=== PATIENT | female | born 1945 | race Caucasian/White ===

== ENCOUNTER → 2016-06-30 | Outpatient (REF) | payer MEDICARE ==
[~2016-06-30] MED LIST: ACET500C PO; AUGM875T27 PO; CALC600T7 PO; CALCI50TA PO; CIPR500T89 PO; CORT10TA PO; CYAN1000VL IM; D32000TA PO; FERR325T PO; FLAG500T PO; FOLI1TAB2 PO; HEPA100PFS IV; HYDR-3291 PO; IMOD2TAB16 PO; INDA125TA PO; MAG400TA PO; MAGN400T5 PO; MECL-68 PO; METAPKT PO; METO-346 PO; PRED20TAB PO; PROT1TAB2 PO; SALI0.9I2 IV; TPNINJ3 IV; VITA-122 PO; VITA-130 PO; VITA500046 PO; VITATAB22 PO; ZOFR20TA PO; [UNRECOGNIZED DRUG - CODE] IV
[2016-06-30 20:07] LABS: MEAN CORPUSCULAR HEMOGLOBIN 29.5 pg (27.0-33.0); MEAN CORPUSCULAR HGB CONC 32.8 g/dl (32.0-36.5); MEAN CORPUSCULAR VOLUME 89.9 fl (80.0-96.0); RED CELL DISTRIBUTION WIDTH 14.1 % (11.5-14.5); RETIC HEMOGLOBIN CONTENT CHr 30.9 PG (24-36); RETICULOCYTE % ADVIA2120 1.6 % (0.5-1.5); WHITE BLOOD COUNT 8.1 K/mm3 (4.0-10.0)
[2016-06-30 20:22] LABS: ALBUMIN 3.5 GM/DL (3.2-5.2); ALBUMIN/GLOBULIN RATIO 0.85 (1.00-1.93); BILIRUBIN,TOTAL 0.7 MG/DL (0.2-1.0); CALCIUM LEVEL 9.4 MG/DL (8.8-10.2); CREATININE FOR GFR 1.33 MG/DL (0.55-1.02); GLOMERULAR FILTRATION RATE 42.1 (>45); MAGNESIUM LEVEL 1.7 MG/DL (1.8-2.4); POTASSIUM SERUM 3.4 MEQ/L (3.5-5.1); TOTAL PROTEIN 7.6 GM/DL (6.4-8.2)
== END ==
LOC: M SFHCADAM 11:32
PROVIDERS: ATTEND Family Medicine
DX: D51.0 Vitamin B12 deficiency anemia due to intrinsic factor deficiency (principal); E27.40 Unspecified adrenocortical insufficiency; D50.8 Other iron deficiency anemias; E83.42 Hypomagnesemia
CPT/HCPCS: 80053; 82728; 83550; 83735; 85027; 85046; 96372; G0463; J3420

== ENCOUNTER → 2016-09-05 | Outpatient (REF) | payer MEDICARE ==
[2016-09-05 14:01] LABS: ALBUMIN 2.8 GM/DL (3.2-5.2); ALBUMIN/GLOBULIN RATIO 0.72 (1.00-1.93); BILIRUBIN,DIRECT 0.2 MG/DL (0.0-0.2); BILIRUBIN,TOTAL 0.5 MG/DL (0.2-1.0); CALCIUM LEVEL 8.3 MG/DL (8.8-10.2); CREATININE FOR GFR 1.15 MG/DL (0.55-1.02); GLOMERULAR FILTRATION RATE 49.8 (>45); TOTAL PROTEIN 6.7 GM/DL (6.4-8.2)
== END ==
LOC: M LABDRAW1 13:20
PROVIDERS: ATTEND Internal Medicine Endocrinology, Diabetes & Metabolism
DX: E55.9 Vitamin D deficiency, unspecified (principal)

== ENCOUNTER → 2016-10-18 | Outpatient (REF) | payer MEDICARE ==
[~2016-10-18] MED LIST changes: +ALLO100T PO; -AUGM875T27 PO; +AUGM875T28 PO; +CALC1CAP31 PO; +CALC600T34 PO; +CIPR-249 PO; -CIPR500T89 PO; +FAMO40TA3 PO; +FE G325T PO; +FERR1TAB8 PO; -FERR325T PO; -FOLI1TAB2 PO; +FOLI1TAB4 PO; +MAGN1TAB25 PO; +MAGN30TA2 PO; +OXYC1TAB23 PO; +PRED10TA2 PO; +PRED20TA PO; +PROTPAK PO; +TYLE325T5 PO; +VICO5TAB16 PO; -VITA-130 PO; +VITA1DRO IM; +VITA500T PO
[2016-10-18 19:03] LABS: ALBUMIN 3.5 GM/DL (3.2-5.2); ALBUMIN/GLOBULIN RATIO 0.76 (1.00-1.93); BILIRUBIN,TOTAL 0.7 MG/DL (0.2-1.0); CALCIUM LEVEL 9.4 MG/DL (8.8-10.2); CREATININE FOR GFR 1.7 MG/DL (0.55-1.02); FREE T4 1.94 NG/DL (0.76-1.46); GLOMERULAR FILTRATION RATE 31.7 (>45); MAGNESIUM LEVEL 1.9 MG/DL (1.8-2.4); PERCENT SATURATION 9.1 % (13.2-37.4); POTASSIUM SERUM 4.3 MEQ/L (3.5-5.1); TOTAL PROTEIN 8.1 GM/DL (6.4-8.2)
[2016-10-18 19:51] LABS: MEAN CORPUSCULAR HEMOGLOBIN 27.8 pg (27.0-33.0); MEAN CORPUSCULAR HGB CONC 33.1 g/dl (32.0-36.5); MEAN CORPUSCULAR VOLUME 84.1 fl (80.0-96.0); RED CELL DISTRIBUTION WIDTH 13.5 % (11.5-14.5); RETIC HEMOGLOBIN CONTENT CHr 31.7 PG (24-36); WHITE BLOOD COUNT 8.6 K/mm3 (4.0-10.0)
== END ==
LOC: M SFHCADAM 15:23
PROVIDERS: ATTEND Family Medicine
DX: R53.83 Other fatigue (principal); D50.8 Other iron deficiency anemias; E83.42 Hypomagnesemia
CPT/HCPCS: 36415; 80053; 82728; 83550; 83735; 84439; 84443; 85027; 85046; G0463

== ENCOUNTER → 2016-11-21 | Outpatient (REF) | payer MEDICARE ==
[2016-11-22 13:55] LABS: FOLATE 14.8 NG/ML
[2016-11-22 14:09] LABS: PERCENT SATURATION 11.3 % (13.2-45.0)
== END ==
LOC: M LAB REF 13:04
PROVIDERS: ATTEND Internal Medicine Nephrology
DX: D64.9 Anemia, unspecified (principal)

== ENCOUNTER → 2016-11-24 | Outpatient (CLI) | payer MEDICARE ==
--- NOTE | 2016-11-24 12:27 | REP ---
RENAL ULTRASOUND: HISTORY: Acute renal failure. COMPARISON: 04/18/2016. The kidneys are normal in echogenicity. The right kidney measures 4.3 cm in transverse by 4.8 cm in AP by 9.3 cm in cephalocaudal dimensions. The left kidney measures 4.7 cm in transverse by 4.8 cm in AP by 10 cm in cephalocaudal dimensions. There is no hydronephrosis or mass. There is mild distension of the urinary bladder. There are no filling defects in the urinary bladder. IMPRESSION: Normal renal ultrasound. Signed by Albert Cid MD 11/24/2016 12:34 P
== END ==
LOC: M RAD 11:27
PROVIDERS: ATTEND Internal Medicine Nephrology
DX: N17.9 Acute kidney failure, unspecified (principal); E27.40 Unspecified adrenocortical insufficiency
CPT/HCPCS: 76775; 96372; G0463; J3420

== ENCOUNTER 2017-01-02 12:59 | Emergency (ER) | payer MEDICARE ==
[~2017-01-02] VITALS: Ht 154.9 cm; Wt 53.2 kg
[~2017-01-02 12:59] MED LIST changes: -ALLO100T PO; -CALC1CAP31 PO; -CALC600T34 PO; -FAMO40TA3 PO; -FE G325T PO; -MAGN1TAB25 PO; -MAGN30TA2 PO; -OXYC1TAB23 PO; -PRED10TA2 PO; -PRED20TA PO; -PROTPAK PO; -TYLE325T5 PO; -VICO5TAB16 PO; -VITA1DRO IM
[2017-01-02] MEDS ORDERED: ALLO100T PO (13:17)
[2017-01-02] MEDS ORDERED: FAMO40TA3 PO (13:17)
[2017-01-02] MEDS ORDERED: CALC1CAP31 PO (13:17)
[2017-01-02] MEDS ORDERED: PERCOCET 5MG/325MG TAB PO ONE ×3 (16:00→23:45)
[2017-01-02 16:14] LABS: BASO % 0.2 % (0.0-1.0); EOS # 0.2 K/mm3 (0.0-0.50); EOS % 1.7 % (0.0-3.0); LARGE UNSTAINED CELL # 0.1 K/mm3 (0.0-0.4); LARGE UNSTAINED CELL % 0.6 % (0.0-4.0); LYMPH # 0.6 K/mm3 (1.5-4.5); MEAN CORPUSCULAR HEMOGLOBIN 28.7 pg (27.0-33.0); MEAN CORPUSCULAR HGB CONC 32.6 g/dl (32.0-36.5); MEAN CORPUSCULAR VOLUME 87.9 fl (80.0-96.0); MONO # 0.4 K/mm3 (0.0-0.8); MONO % 3.6 % (0.0-5.0); NEUTROPHILS # 9.2 K/mm3 (1.8-7.7); NEUTROPHILS % 88.9 % (36.0-66.0); PLATELET COUNT, AUTOMATED 349 k/mm3 (150-450); RED CELL DISTRIBUTION WIDTH 16.3 % (11.5-14.5); WHITE BLOOD COUNT 10.4 K/mm3 (4.0-10.0)
[2017-01-02 16:36] LABS: ERYTHROCYTE SEDIMENTATION RATE > 140 mm/hr (0-30)
[2017-01-02 16:41] LABS: CALCIUM LEVEL 8.6 MG/DL (8.8-10.2); CREATININE FOR GFR 1.18 MG/DL (0.55-1.02); GLOMERULAR FILTRATION RATE 48.3 (>45); POTASSIUM SERUM 3.5 MEQ/L (3.5-5.1); URIC ACID 6.6 MG/DL (2.6-6.0)
--- NOTE | 2017-01-02 16:57 | REP ---
Clinical: Pain and swelling . Technique: Moss scale and color Doppler evaluation using linear high frequency transducer. Findings: Ultrasound examination of the left lower extremity deep venous structures from the common femoral vein to the popliteal vein demonstrates normal compressibility flow and wave patterns in response to respiration and augmentation. There is no evidence for deep venous thrombosis. Impression: No evidence for deep venous thrombosis. Signed by Burt Leong MD 01/02/2017 04:49 P
[2017-01-02] MEDS ORDERED: ONDANSETRON 4 MG ORAL DISINTEGRATING TAB (S0181) PO ONE (17:00)
--- NOTE | 2017-01-02 17:01 | REP ---
Clinical: Swelling. Rule out abscess. Technique: Real time sousa scale and color evaluation using linear high frequency transducer. Findings: Directed ultrasound examination at the level of the knee demonstrates a complex hypoechoic subcutaneous fluid collection measuring 5.3 x 1.1 x 1.4 cm medial to the left knee which may reflect forming abscess. Impression: Complex fluid collection medial to the knee possible abscess. Signed by Burt Leong MD 01/02/2017 04:53 P
--- NOTE | 2017-01-02 17:24 | REP ---
Right knee series: Five views. History: Pain and swelling. Findings: Five views of the right knee demonstrate marked diffuse osteopenia. There is osteoarthritic narrowing of the medial compartment with some sclerosis. There is fullness in the suprapatellar bursa, which may reflect a small joint effusion. No fracture is seen. Impression: Diffuse osteoporosis. Probable small joint effusion. Medial compartment osteoarthritis. Signed by Dane Rudd MD 01/03/2017 02:12 P
--- NOTE | 2017-01-02 20:00 | REPUSA ---
CT of the left knee without contrast Clinical statement: abscess. Technique: Multiple axial CT images were obtained with 5 mm cuts through the left knee without admini stration of contrast. Coronal and sagittal reconstructions were also obtained. No comparison is available. Findings: The osseous structures do not demonstrate any fractures or dislocations. Diffuse osteopenia , with scattered areas of ill-defined lytic changes, seen throughout the osseous structures. The supe rficial soft tissues are unremarkable. The joint spaces are well-maintained. There is a moderate size d joint effusion. Impression: 1. No focal soft tissue mass or fluid collection identified. Follow-up is recommended as clinically i ndicated. 2. Diffuse severe osteopenia, with scattered lytic changes throughout the osseous structures. No foca l cortical destructive changes are seen however. If there is continued clinical concern however, MRI is recommended. 3. Moderate sized joint effusion.
[2017-01-02 22:05] LABS: RBC CALC. BF 200000 (< 10mm3 cells/uL); WBC ADVIA BF 54.6; WBC CALC. BF 54600 cells/uL (0-20)
[2017-01-02 22:06] LABS: BF DIFF IF INDICATED? YES (NO); SYNOVIAL FLUID COLOR RED (YELLOW)
[2017-01-02 22:22] LABS: CC BF DIFF EXAM UNSPUN; CRYSTALS, BODY FLUID NONE SEEN (NONE SEEN)
[2017-01-02 22:23] LABS: HCT SOURCE RT KNEE
[2017-01-02 22:55] VITALS: BP 114/63
[2017-01-02 22:59] LABS: TOTAL PROTEIN, BODY FLUID 7.6 G/DL (NOT ESTABLISHED)
[2017-01-02] MEDS ORDERED: VICO5TAB16 PO (23:43)
[2017-01-02] MEDS ORDERED: NORCO, ANEXSIA 5/325MG TABLET (HYDROcodone/ACETAMINOPHEN) PO ONE (23:45)
--- NOTE | 2017-01-04 12:59 | CR ---
DATE OF CONSULTATION: 01/02/2017 INDICATION: Question left knee infection. HISTORY OF PRESENT ILLNESS: Maral is a 71-year-old female with Crohn's disease and chronic renal insufficiency who presented with two days of increasing medial left knee pain. A few years ago, she reports that she had an abscess drained from the medial aspect of left knee. She actually points to an incision that is far posterior, almost over the gastroc. She denies any fevers, chills or sweats. Again, pain is localized to the medial aspect of the knee. Although she has had some increasing swelling in her knee joint, she does not report any increasing stiffness. PAST MEDICAL HISTORY: Notable for renal insufficiency and multiple surgeries from Crohn's disease. For the rest of the patient's past medical history, past surgical history, medications, allergies, social history and review of systems, please see the patient intake completed by the emergency room, which I did review. PHYSICAL EXAMINATION: Reveals a well appearing female in no distress. Alert and oriented times three. NEUROLOGIC: Appropriate mood and affect. CARDIOVASCULAR: 2+ DP pulse with a regular rate. PULMONARY: Regular nonlabored breathing. SKIN: The skin over the left knee reveals a healed posteromedial incision from prior incision and drainage. There are no lesions anteriorly. MUSCULOSKELETAL: Exam of the left knee reveals a moderate effusion. There is no warmth or erythema. She has mild tenderness to palpation over the medial retinaculum with an area of questionable bogginess, but no induration of fluctuance. She has mild tenderness. Exam is not consistent with abscess. No specific mass palpated. She has full knee extension and can flex to 115 degrees in the supine position. Lateral joint lines nontender. She has mild medial joint line tenderness. No pain with axial load. Calf is soft and compressible. Grossly intact motor and sensory exam distally. RADIOLOGY: X-rays of the left knee were obtained and available for my review. 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 There is no bony expansion. There is no cortical destruction. An ultrasound was obtained in the ER which was interpreted by radiology as a fluid collection in the medial aspect of the knee, possibly an abscess. I did request a CAT scan of the knee, which showed there is no abscess or fluid collection. There is a moderate joint effusion. It also shows further detail of the bony changes. ASSESSMENT/PLAN: Maral is a 71-year-old female with left knee effusion, possible reactive arthritis, possible septic joint. There is no abscess or drainable fluid collection. Her clinical exam and picture is not concerning at all for a septic joint. Given that her inflammatory markers are elevated and she has had abscess on that knee before, I think it is worth aspirating the knee to rule out septic joint. I explained the risks and benefits of a left knee arthrocentesis with the patient and consent was obtained. PROCEDURE NOTE: The left knee was sterilely prepped with Betadine and then I used an 18 gauge spinal needle and aspirated 15 mL of hazy yellow synovial fluid. This was a somewhat bloody tap. This was a superolateral approach. She tolerated this well. The fluid was sent for cell count, crystals and culture. The cell count came back at 56,000 white blood cells and 20,000 red blood cells. No crystals and negative gram stain. I had a discussion with the emergency room physician that night that her clinical exam is not consistent at all with a septic joint and even though her cell count on the aspiration was 56,000, it would be inappropriate to perform irrigation and debridement of the knee joint since it is not consistent with a septic joint. I have recommended holding off on any antibiotics and having her followup in the office in 48 hours with re-aspiration of the knee joint unless her symptoms completely resolved. She was cautioned about returning to the ER for worsening pain, fevers over 101, or loss of motion. I had a conversation with the patient's primary care physician this morning to discuss my findings. The patient feels basically unchanged from the previous night in the ER. She had one subjective low grade fever. He says that she still has good range of motion and does not feel any worse. At this point, she will followup with me on 01/05 and I will re-aspirate her knee, sending it for culture, gram stain and cell count.
[2017-01-29] MEDS ORDERED: OXYC1TAB23 PO (07:36)
[2017-01-29] MEDS ORDERED: MAGN1TAB25 PO (07:36)
[2017-01-29] MEDS ORDERED: CALC600T34 PO (07:36)
[2017-01-29] MEDS ORDERED: CYAN1000VL IM (14:37)
[2017-01-29] MEDS ORDERED: HYDR-3291 PO (14:38)
[2017-02-10] MEDS ORDERED: PRED20TA PO (13:00)
== END 2017-01-03 00:32 | disposition home or self-care (01) ==
LOC: M ED 12:59
DX: M25.462 Effusion, left knee (principal); I12.9 Hypertensive chronic kidney disease with stage 1 through stage 4 chronic kidney disease, or unspecified chronic kidney disease; N18.9 Chronic kidney disease, unspecified; D50.9 Iron deficiency anemia, unspecified; K50.90 Crohn's disease, unspecified, without complications; Z79.51 Long term (current) use of inhaled steroids; Z79.899 Other long term (current) drug therapy; Z88.8 Allergy status to other drugs, medicaments and biological substances; Z88.2 Allergy status to sulfonamides; Z98.890 Other specified postprocedural states

== ENCOUNTER → 2017-01-04 | Outpatient (REF) | payer MEDICARE ==
[~2017-01-04] MED LIST changes: +ALLO100T PO; +CALC1CAP31 PO; +CALC600T34 PO; +FAMO40TA3 PO; +FE G325T PO; +MAGN1TAB25 PO; +MAGN30TA2 PO; +OXYC1TAB23 PO; +PRED10TA2 PO; +PRED20TA PO; +PROTPAK PO; +TYLE325T5 PO; +VICO5TAB16 PO; +VITA1DRO IM
== END ==
LOC: M SFHCADAM 09:41
PROVIDERS: ATTEND Family Medicine
DX: M13.162 Monoarthritis, not elsewhere classified, left knee (principal)

== ENCOUNTER → 2017-01-04 | Outpatient (REF) | payer MEDICARE ==
[2017-01-06 00:07] LABS: Lyme Disease IgG/IgM Antibodie <0.91 ISR (0.00-0.90); Lyme Disease IgM Ab Quantitati <0.80 index (0.00-0.79)
== END ==
LOC: M LABDRAW1 10:23
PROVIDERS: ATTEND Family Medicine
DX: M13.162 Monoarthritis, not elsewhere classified, left knee (principal)

== ENCOUNTER 2017-01-05 07:52 | Outpatient (CLI) | payer MEDICARE ==
[~2017-01-05 07:52] MED LIST changes: -CALC600T34 PO; -FE G325T PO; -MAGN1TAB25 PO; -MAGN30TA2 PO; -OXYC1TAB23 PO; -PRED10TA2 PO; -PRED20TA PO; -PROTPAK PO; -TYLE325T5 PO; -VITA1DRO IM
[2017-01-05] MEDS ORDERED: IRON SUCROSE 25 MG in NS 50 ML IV ONE (08:00)
[2017-01-05] MEDS ORDERED: IRON SUCROSE 475 MG in NS 250 ML IV ONE (08:00)
[2017-01-05] MEDS ORDERED: MAGN30TA2 PO (15:07)
[2017-01-05] MEDS ORDERED: PROTPAK PO (15:08)
[2017-01-05] MEDS ORDERED: FE G325T PO (15:09)
[2017-01-05] MEDS ORDERED: VITA1DRO IM (15:45)
[2017-01-29] MEDS ORDERED: CALC600T34 PO (07:36)
[2017-01-29] MEDS ORDERED: MAGN1TAB25 PO (07:36)
[2017-01-29] MEDS ORDERED: OXYC1TAB23 PO (07:36)
[2017-01-29] MEDS ORDERED: CYAN1000VL IM (14:37)
[2017-01-29] MEDS ORDERED: HYDR-3291 PO (14:38)
[2017-02-10] MEDS ORDERED: PRED20TA PO (13:00)
== END 2017-01-05 14:30 | disposition home or self-care (01) ==
LOC: M INFU 07:52
PROVIDERS: ATTEND Internal Medicine Nephrology
DX: D50.9 Iron deficiency anemia, unspecified (principal); Z88.2 Allergy status to sulfonamides; Z88.8 Allergy status to other drugs, medicaments and biological substances; Z87.19 Personal history of other diseases of the digestive system; Z79.899 Other long term (current) drug therapy
CPT/HCPCS: 36415; 86038; 86431; 86617; 96365; 96366; G0463; J1756

== ENCOUNTER → 2017-01-12 | Outpatient (CLI) | payer MEDICARE ==
[~2017-01-12] MED LIST changes: +CALC600T34 PO; +FE G325T PO; +MAGN1TAB25 PO; +MAGN30TA2 PO; +OXYC1TAB23 PO; +PRED10TA2 PO; +PRED20TA PO; +PROTPAK PO; +TYLE325T5 PO; +VITA1DRO IM
--- NOTE | 2017-01-12 18:40 | REP ---
MRI LEFT KNEE: TECHNIQUE: Axial proton density fat saturation, sagittal proton density T2 STIR, water excitation, coronal proton density, proton density fat saturation. The menisci demonstrate no evidence of a tear. The cruciate and collateral ligaments are intact. The extensor mechanism is intact. There is moderate diffuse chondromalacia of the patella most significantly centrally. Diffuse severe chondromalacia is seen in the medial joint compartment. Cortex of the medial femoral condyle demonstrates tiny focal areas of high signal, probably indicating a few tiny areas of microfracture. Extensive bone infarcts are seen in the distal femur and proximal tibia. In addition, there are central multifocal areas of fluid within the marrow of the distal femur with fluid-fluid levels which appear to represent a combination of fat and fluid. This probably represents central fat necrosis within the bone infarct. Diffuse surrounding soft tissue edema is seen. There is a moderate joint effusion. IMPRESSION: No tendon or ligament tear. Moderate diffuse chondromalacia of the patella. Severe diffuse chondromalacia in the medial joint compartment. In addition, there appear to be a few tiny areas of microfracture of the cortex of the medial femoral condyle. Extensive bone infarcts are seen in the distal femur and proximal tibia. There is surrounding soft tissue edema. There is a moderate joint effusion. Signed by Brando Moss MD 01/13/2017 02:20 P
== END ==
LOC: M RAD 14:51
PROVIDERS: ATTEND Orthopaedic Surgery
DX: M25.562 Pain in left knee (principal)

== ENCOUNTER 2017-02-23 09:59 | Inpatient (IN) | payer MEDICARE ==
[~2017-02-23] VITALS: Ht 154.9 cm; Wt 48.0 kg
[2017-02-23] MEDS: PANTOPRAZOLE 40MG INJ (PROTONIX) (C9113) IV SCH (09:00)
[2017-02-23] MEDS: ENOXAPARIN 40 MG/0.4 ML SYRINGE (J1650) SC SCH (09:00)
[~2017-02-23 09:59] MED LIST changes: -PRED10TA2 PO; -TYLE325T5 PO
[2017-02-23 11:00] LABS: MEAN CORPUSCULAR HEMOGLOBIN 29.3 pg (27.0-33.0); MEAN CORPUSCULAR HGB CONC 31.1 g/dl (32.0-36.5); MEAN CORPUSCULAR VOLUME 94.2 fl (80.0-96.0); PLATELET COUNT, AUTOMATED 252 10^3/uL (150-450); RED CELL DISTRIBUTION WIDTH 18.5 % (11.5-14.5); WHITE BLOOD COUNT 9.6 10^3/uL (4.0-10.0)
[2017-02-23] MEDS ORDERED: MORPHINE 2 MG/ML 1ML SYRINGE IV ONE (11:00)
[2017-02-23] MEDS ORDERED: ONDANSETRON 4MG/2ML VIAL (J2405) IV ONE (11:00)
[2017-02-23 11:03] LABS: LEFT SHIFT POS FLAG; POSITIVE MORPH POS FLAG
[2017-02-23 11:04] LABS: ADD MANUAL DIFFER YES; DIFF SLIDE NUMBER 185
[2017-02-23 11:13] LABS: INR 0.92
[2017-02-23 11:28] LABS: CALCIUM LEVEL 9.3 MG/DL (8.8-10.2); CREATININE FOR GFR 1.21 MG/DL (0.55-1.02); GLOMERULAR FILTRATION RATE 46.8 (>39); POTASSIUM SERUM 3.5 MEQ/L (3.5-5.1)
[2017-02-23 11:37] LABS: ANISOCYTOSIS 2+; BANDS 3 % (< 11)
[2017-02-23] MEDS ORDERED: ISOVUE-370 76% 100ML VIAL (Q9967) As Ordered ONE (11:38)
--- NOTE | 2017-02-23 13:21 | REP ---
CT ABDOMEN/PELVIS WITH IV CONTRAST: TECHNIQUE: Axial contrast enhanced images from the lung bases to the pubic symphysis using 100 mL Isovue 370 intravenous contrast material with multiplanar reformations. Comparison made with prior CT pelvis, 02/07/[address] abdomen/pelvis 02/03/2017. In the visualized lung bases, there is again elevation of the left hemidiaphragm with adjacent fibroatelectatic change. Liver is unremarkable. Small gallstones are seen in the gallbladder. The spleen, adrenals, pancreas, and kidneys appear unremarkable. There is no abdominal aortic aneurysm with scattered atherosclerotic calcifications. There are small, nonenlarged periaortic and mesenteric lymph nodes identified. There is no free air. Diffuse hazy opacity in the mesentery centrally and inferiorly is compatible with inflammation. There is a left lower quadrant ostomy again noted. Just below that, there is a pelvic abscess identified containing a drainage catheter. The amount of air and fluid in the abscess has increased since the most recent CT of 02/07/2017. There also appears to be a tract along the path of the drainage catheter which extends through the midline of the anterior abdominal wall to the skin with an apparent draining fistula at the skin just medial to the entrance site of the drainage catheter. Urinary bladder is mildly distended and grossly unremarkable. Ill-defined inflammation extends throughout the fat in the pelvis. Tiny amount of fluid in the abdominal wall of the right lower quadrant is stable. There are degenerative changes of the spine. IMPRESSION: Increased amount of air and fluid surrounding a pelvic abscess drainage catheter when compared to the prior CT of 02/07/2017. In addition, there appears to be a draining fistula extending from the abscess anteriorly through the midline of the anterior abdominal wall to the skin, with the drainage through the skin apparently just medial to the entrance site of the abscess drainage catheter. Signed by Brando Moss MD 02/23/2017 07:32 P
[2017-02-23] MEDS ORDERED: TYLE325T5 PO (14:34)
[2017-02-23] MEDS ORDERED: PRED10TA2 PO (14:40)
[2017-02-23] MEDS ORDERED: ONDANSETRON 4MG/2ML VIAL (J2405) IV PRN (14:45)
[2017-02-23] MEDS: LR 1,000 ML IV SCH ×2 (16:34→22:32)
[2017-02-23] MEDS: MORPHINE 4 MG/ML 1ML SYRINGE IV PRN ×2 (16:35→18:33)
[2017-02-23 22:00] VITALS: BP 123/63
--- NOTE | 2017-02-23 22:55 | HPEPDOC ---
General Surgery H&P Date of Admission Feb 23, 2017 Attending Physician: AMY DUBON MD History and Physical CHIEF COMPLAINT: New drainage coming out from skin, pelvic abscess HISTORY OF PRESENT ILLNESS: Patient is 72-year-old female with chronic history of Crohn's disease admitted under my service for intra-abdominal/pelvic abscess a few weeks back and has been followed up in my clinic. She was clinically improving with decreasing output from her Nathan-Shane drain. This morning she woke up and she reports drainage of liquid substance similar to her ileostomy output on the lower portion of her abdomen below the ileostomy. Patient reports noting the area to be slightly red the past couple of days. Denies any fevers or chills. The intra-abdominal percutaneous drain was putting out between 20-40 mL's of purulent fluid for the past week. ALLERGIES: Please see below. HOME MEDICATIONS: Please see below. PAST MEDICAL HISTORY: 1. Crohn's disease 2. Mild adrenal insufficiency on steroids 3. Chronic kidney disease 4. Anemia PAST SURGICAL HISTORY: Hemicolectomy - RIGHT - 04/03/2001 - EXP LAP TAKEDOWN OF DUODENAL COLIC FISTULA , TAKEDOWN OF ILEOCOLIC FISTULA, SMALL BOWEL RESECTION, PARTIAL OMENTECTOMY, AND ILEOCOLIC ANASTOMOSIS Colonoscopy - SEVERAL Drainage & Debridement Of Abd Wall Abscess - 03/08/2000 Percutaneous drainage of pelvic abscess PERSONAL/SOCIAL HISTORY: Denies smoking, occasional alcohol use, denies recreational drug use. REVIEW OF SYSTEMS: GENERAL: Since last admission and discharge denies any fevers or chills, occasionally will have some abdominal pain, reports improving appetite. HEENT: Denies blurred vision and double vision. Denies ear symptoms. Denies hoarseness. NECK: Denies any neck pain. CARDIOVASCULAR: Denies chest pain and palpitations. MUSCULOSKELETAL: Denies arthralgias, back pain and thrombophlebitis. SKIN: Denies rash. NEUROLOGIC: Denies headache, stroke and transient ischemic attack. PSYCHIATRIC: Denies anxiety and depression. ENDOCRINE: Denies thyroid disease. HEMATOLOGY/ONCOLOGY: Denies any bleeding or clotting disorder. HEART: Denies any chest pains, palpitations, paroxysmal dyspnea, orthopnea. PULMONARY: Denies chronic cough, dyspnea and wheezing. GASTROINTESTINAL: Complicated gastrointestinal history secondary to long history of Crohn's disease with multiple surgeries, now permanent ileostomy. Still not on any treatments for Crohn's disease. She is scheduled to follow up with Dr. Callejas,unfortunately she has returned to the hospital for a new problem regarding her fistula GENITOURINARY: Denies dysuria, frequency, hematuria and nocturia. ENDOCRINE: Denies polydipsia, polyphagia, polyuria, heat or cold intolerance. G2 chronic history of prednisone use has some mild adrenal insufficiency maintained on hydrocortisone. Due to her fistula arising: Disease, she is on a tapering dose of prednisone now on 10 mg twice a day INFECTIOUS: She has been on antibiotics for her pelvic abscess, fistula NUTRITION: Prior to this episode, reports improving appetite PHYSICAL EXAMINATION: VITAL SIGNS: Please see below. GENERAL APPEARANCE: Patient appears anxious, reports discomfort from her lower abdomen HEENT: Normocephalic, atraumatic. Mildly pale palpebral conjunctivae. Anicteric sclerae. Lips dry. CHEST: No chest wall abnormalities. Normal respiratory motion/effort. NECK: Supple. No thyromegaly. No lymphadenopathies. LUNGS: Lung sounds are clear to auscultation bilaterally. No wheezing appreciated. HEART: No chest wall abnormalities. Heart rate and rhythm are regular with no murmurs. ABDOMEN: Flat abdomen, nondistended. Upper abdomen appears benign. Left lower quadrant ileostomy with small amount of output in the bag. Below the ostomy is in irregular skin opening neuropathy about 2 cm draining almost the same amount of stuff is coming out from her ileostomy. Slightly to the right of this is a percutaneous drain where there is a small amount of thick purulent material in the bag. Mild skin erythema around the skin fistula opening due to irritation. SKIN: Warm and dry. EXTREMITIES: Extremities have no deformities. No edema identified. NEUROLOGICAL: . Awake, alert, oriented ANCILLARIES: . LABORATORY DATA: Please see below. MICROBIOLOGY: Please see below. IMAGING: CT scan abdomen and pelvis Increased amount of air and fluid surrounding a pelvic abscess drainage catheter when compared to the prior CT of 02/07/2017. In addition, there appears to be a draining fistula extending from the abscess anteriorly through the midline of the anterior abdominal wall to the skin, with the drainage through the skin apparently just medial to the entrance site of the abscess drainage catheter. IMPRESSION AND PLAN: Enterocutaneous fistula Crohn's disease Adrenal insufficiency Right now we will admit the patient put her on IV antibiotics. We'll make her nothing by mouth. I am consider placing on TPN, NPO. With regards to the new enterocutaneous fistula, we will place a urostomy bag around the site to protect the surrounding skin. They think the percutaneous drain clogged causing return of buildup of the pelvic abscess which tracked its way up into the skin below the ileostomy creating an enterocutaneous fistula. Despite of this she does not appear to be acutely ill, no evidence signs of systemic inflammatory reaction. Her white cell count is normal. This she does not need an emergent surgery though she may need surgery if we are unable to control the abscess, draining fistula or she gets systemically ill from this or if this does not resolve after an appropriate amount of time and after putting her on treatment for her Crohn's disease. At this point in time, we will need to define the extent of the bowel involvement. The fistula, most important of which is how far from the ileostomy is seen Randall Delgado, how much small bowel she has left. From her history she is already having problems with episodes of high ileostomy output needing Lomotil to control the amount of the ileostomy off with this she may be at the verge of having short gut syndrome. I'll plan to at least half a small bowel follow-through done or even a retrograde study through the fistula or the ileostomy to verify its relation to the fistula tract. Vital Signs Vital Signs Date Time Temp Pulse Resp B/P (MAP) Pulse Ox O2 Delivery O2 Flow Rate FiO2 02/23/17 18:33 16 02/23/17 16:47 100.6 105 118/67 (84) 96 Room Air Laboratory Data Labs 24H Laboratory Tests 2 02/23/17 10:48: Nucleated Red Blood Cells % (auto) 0.0, Neutrophils 86H, Band Neutrophils 3, Lymphocytes (Manual) 9L, Monocytes (Manual) 2, Platelet Estimate NORMAL, Anisocytosis 2+, Prothrombin Time 12.4, Prothromb Time International Ratio 0.92 , Anion Gap 9, Glomerular Filtration Rate 46.8, Lactic Acid Level 1.7, Blood Urea Nitrogen 22H, Creatinine 1.21H, Sodium Level 140, Potassium Level 3.5, Chloride Level 102, Carbon Dioxide Level 29, Calcium Level 9.3 CBC/BMP Laboratory Tests 02/23/17 10:48 Red Blood Count 4.67, Mean Corpuscular Volume 94.2, Mean Corpuscular Hemoglobin 29.3, Mean Corpuscular Hemoglobin Concent 31.1 L, Red Cell Distribution Width 18.5 H, Calcium Level 9.3 Microbiology Microbiology 02/23/17 Blood Culture, Received Pending Home Medications Scheduled Allopurinol (Allopurinol) 100 Mg Tab, 100 MG PO BID, (Reported) Calcitriol (Calcitriol) 0.25 Mcg Cap, 25 MCG PO 3XW, (Reported) MON, MON, MON Calcium/Vitamin D (Calcium Carbonate/Vitamin 600-200 mg-Unit) 1 Tab Tab, 1 TAB PO BID, (Reported) Cholecalciferol (Vitamin D3) 1,000 Unit Tab, 2,000 UNIT PO DAILY, (Reported) Cyanocobalamin (Cyanocobalamin) 1,000 Mcg/1 Ml Inj, 1,000 MCG IM QMONTH, ( Reported) HAS APPT TO RECEIVE 03/02/17 Famotidine (Famotidine) 40 Mg Tab, 40 MG PO DAILY, (Reported) Ferrous Gluconate (Fe Gluconate) 325 Mg Tab, 325 MG PO DAILY, (Reported) Magnesium Oxide (Magnesium) 400 Mg Tab, 400 MG PO BID, (Reported) Prednisone (Prednisone) 10 Mg Tab, 1 DOSE PO ASDIRECTED, (Reported) TAPER DOSE... DUE FOR ONE MORE DOSE OF 40MG ON 02/24/17. ON 02/25/17 START TAPER OF: 20MG QAM & 10MG QPM x 1 WEEK, 10MG QAM & 10MG QPM x 1 WEEK, 10MG QAM x1 WEEK, THEN STOP Scheduled PRN Acetaminophen (Tylenol) 325 Mg Tab, 325 MG PO QID PRN for PAIN, (Reported) Loperamide Hcl (Imodium A-D) 2 Mg Tab, 2 MG PO PRN PRN for DIARRHEA, (Reported) Oxycodone/Acetaminophen (Oxycodone/Acetaminophen 5-325 mg) 1 Tab Tab, 1 TAB PO Q6H PRN for PAIN, (Reported) Allergies Coded Allergies: Sulfa Drugs (Verified Allergy, Unknown, RASH, 07/25/12) Sulfa Drugs Cross Reactors (Verified Allergy, Unknown, RASH, 07/25/12) Balsalazide (Verified Adverse Reaction, Mild, IRRITABILITY, 10/09/13) Budesonide (Verified Adverse Reaction, Mild, GI UPSET, 10/09/13) AMY DUBON MD Feb 23, 2017 22:55
[2017-02-24] MEDS: MORPHINE 4 MG/ML 1ML SYRINGE IV PRN ×5 (04:28→20:57)
[2017-02-24 06:00] VITALS: BP 126/64
[2017-02-24] MEDS: LR 1,000 ML IV SCH (08:33)
[2017-02-24] MEDS: PANTOPRAZOLE 40MG INJ (PROTONIX) (C9113) IV SCH (08:47)
[2017-02-24] MEDS: ENOXAPARIN 40 MG/0.4 ML SYRINGE (J1650) SC SCH (08:48)
[2017-02-24] MEDS: predniSONE 10 MG TAB PO SCH ×2 (13:27→20:56)
[2017-02-24 14:00] VITALS: BP 186/91
[2017-02-24 16:00] VITALS: BP 157/67
--- NOTE | 2017-02-24 16:13 | IPNPDOC ---
Subjective General Date/Time Seen The patient was seen on 02/24/17 at 08:10. Subject Chief Complaint/History The patient is a 72-year-old female admitted with a reason for visit of Enterocutaneous Fistula. She reports pain fro the skin irritation from the fistula site, a urostomy bag has been placed to control the fistula, slight leakage from the bag d/t the drain site. Afebrile. Current Medications Current Medications Current Medications Acetaminophen (Tylenol Tab) 650 mg Q4HP PRN PO MILD PAIN or TEMP > 101; Start 02/23/17 at 14:45; Stop 03/25/17 at 14:44 Acetaminophen/ Hydrocodone Bitart ([place], Anexsia 5/325) 1 tab Q4HP PRN PO MODERATE PAIN (PS 5-7); Start 02/23/17 at 14:45; Stop 03/02/17 at 14:44 Acetaminophen/ Hydrocodone Bitart ([place], Anexsia 5/325) 2 tab Q6HP PRN PO SEVERE PAIN (PS 8-10); Start 02/23/17 at 14:45; Stop 03/02/17 at 14:44 Enoxaparin Sodium (Lovenox) 40 mg DAILY SC Last administered on 02/24/17 08:48 ; Start 02/23/17 at 09:00; Stop 02/28/17 at 08:59 Home Med (Med Rec Complete!) ASDIRECTED XX ; Start 02/23/17 at 14:45; Stop 02/23/17 at 14:45; Status DC Insulin Human Lispro (HumaLOG INSULIN) See Protocol Table Q6H SC ; Start at 18:00; Stop 02/25/17 at 12:01 Lactated Ringer's 1,000 ml @ 125 mls/hr Q8H IV Last administered on 02/24/17 08:33; Start 02/23/17 at 14:32; Stop 03/25/17 at 14:31 Miscellaneous (Unresolved Clarification Entry) SEE LABEL COMMENTS UNRESOLVED XX ; Start 02/24/17 at 00:01; Stop 02/24/17 at 13:39; Status DC Morphine Sulfate (Morphine Sulfate Inj) 4 mg Q2HP PRN IV SEVERE PAIN (PS 8-10) Last administered on 02/24/17 13:27; Start 02/23/17 at 14:45; Stop 03/02/17 at 14:44 Multivitamins 10 ml/Chromium/ Copper/Manganese/ Seleni/Zn 1 ml/ Amino Ac/ Electrol/ Dextrose/Calcium 2,577 ml @ 75 mls/hr ONCE@1800 IV ; Start 02/24/17 at 18:00; Stop 02/25/17 at 17:59 Ondansetron HCl (ZOFRAN INJection) 4 mg Q6HP PRN IV NAUSEA OR VOMITING; Start 02/23/17 at 14:45; Stop 03/25/17 at 14:44 Pantoprazole Sodium (Protonix) 40 mg DAILY IV Last administered on 02/24/17 08 :47; Start 02/23/17 at 09:00; Stop 03/25/17 at 08:59 Prednisone (Deltasone) 10 mg BID PO Last administered on 02/24/17 13:27; Start 02/24/17 at 09:00; Stop 03/26/17 at 08:59 Allergies Coded Allergies: Sulfa Drugs (Verified Allergy, Unknown, RASH, 07/25/12) Sulfa Drugs Cross Reactors (Verified Allergy, Unknown, RASH, 07/25/12) Balsalazide (Verified Adverse Reaction, Mild, IRRITABILITY, 10/09/13) Budesonide (Verified Adverse Reaction, Mild, GI UPSET, 10/09/13) Objective Physical Examination Examination GENERAL APPEARANCE:[Patient seen, laying in bed, awake, alert, and oriented. Comfortable, in no acute distress]. SKIN: [Warm and moist]. HEENT: [Normocephalic, atraumatic. Emery palpebral conjunctiva, anicteric sclerae. Lips and mucosa appear moist]. NECK: [Supple, no thyromegaly. No obvious jugular venous distention]. LUNGS: [Clear to auscultation bilaterally. No wheezing appreciated]. HEART: [No chest wall abnormalities. Regular rate and rhythm with no murmurs appreciated]. ABDOMEN: Abdomen is , soft, . [No hepatosplenomegaly. No umbilical or groin herniations, nondistended. No noticeable rebound or guarding. No grimacing with palpation. No rebound tenderness. No masses appreciated]. EXTREMITIES: [Extremities have no deformities. No edema identified]. Vital Signs Vital Signs Date Time Temp Pulse Resp B/P (MAP) Pulse Ox O2 Delivery O2 Flow Rate FiO2 02/24/17 13:37 20 02/24/17 06:00 98.0 103 126/64 (84) 97 Room Air Laboratory Data Microbiology Microbiology 02/23/17 Blood Culture - Preliminary, Resulted No growth after 24 hours . All specim... Impression Enterocutaneous Fistula Crohns Disease Adrenal Insufficiency Paln is to keep her NPO, start TPN protect the skin from irritation at fistula site and observe fistula output continue with antibiotics d/c drain as no longer functioning. Plan / VTE VTE Prophylaxis Ordered?: Yes AMY DUBON MD Feb 24, 2017 16:13
--- NOTE | 2017-02-24 16:57 | REP ---
RIGHT PICC LINE PLACEMENT: The procedure was performed by KRISS Escudero under the direct supervision of Dr. Moss. The procedure along with its risks, benefits, and complications were discussed with the patient prior to the examination. Informed consent was obtained both verbally and written. The patient was identified in the interventional suite and placed in a supine position. The right arm was marked, prepped and draped in the usual sterile fashion. A procedural time-out was performed to ensure that the correct patient, site and procedure were being performed. Ultrasound guidance was used to puncture the right basilic vein. A thin guidewire was introduced and the needle was removed. Local infiltrative anesthesia was achieved using 2% lidocaine. A break-away sheath was placed over the wire and advanced into the vessel. Under fluoroscopic observation and via the break-away sheath, a 29 cm 5.5-Kitt[place] double lumen PICC line was placed with its tip at the junction of the distal superior vena cava. The catheter was flushed with heparinized saline and affixed to the patient's skin. The patient tolerated the procedure well and had no immediate complications. IMPRESSION: Uncomplicated placement of right upper extremity double lumen PICC line. Fluoroscopy time of 0.5 minutes were utilized for this procedure. Reviewed by KRISS Carpenter 03/08/2017 02:03 PEdited and Signed by Brando Moss MD 03/09/2017 04:22 P
[2017-02-24] MEDS ORDERED: SODIUM CHLORIDE 0.9% INJ 10 ML SYR IV PRN (17:00)
[2017-02-24] MEDS: HumaLOG INSULIN (NovoLOG) PER UNIT SC SCH (18:00)
[2017-02-24] MEDS ORDERED: MULTIVITAMIN -ADULT INJECTION 10 ML, CR/CU/SE/MN/ZN INJ 1 ML in AMINO AC/ELECTROLYTE/DE... IV SCH (18:00)
[2017-02-24] MEDS: SODIUM CHLORIDE 0.9% INJ 10 ML SYR IV SCH (18:29)
[2017-02-24 22:00] VITALS: BP 122/70
[2017-02-25] MEDS: MORPHINE 4 MG/ML 1ML SYRINGE IV PRN ×2 (05:13→22:20)
[2017-02-25] MEDS: SODIUM CHLORIDE 0.9% INJ 10 ML SYR IV SCH ×2 (05:31→18:28)
[2017-02-25 05:55] LABS: BASO % 0.2 % (0.0-1.0); IMMATURE GRANULOCYTE % 1.1 % (0-0); LYMPH # 0.3 10^3/uL (1.5-4.5); MEAN CORPUSCULAR HEMOGLOBIN 29.4 pg (27.0-33.0); MEAN CORPUSCULAR HGB CONC 31.9 g/dl (32.0-36.5); MEAN CORPUSCULAR VOLUME 92.2 fl (80.0-96.0); MONO # 0.5 10^3/uL (0.0-0.8); MONO % 7.4 % (0.0-5.0); NEUTROPHILS # 5.4 10^3/uL (1.8-7.7); NEUTROPHILS % 87.3 % (36.0-66.0); PLATELET COUNT, AUTOMATED 155 10^3/uL (150-450); RED CELL DISTRIBUTION WIDTH 17.7 % (11.5-14.5); WHITE BLOOD COUNT 6.2 10^3/uL (4.0-10.0)
[2017-02-25 06:00] VITALS: BP 151/80
[2017-02-25 06:06] LABS: CREATININE FOR GFR 1.09 MG/DL (0.55-1.02); GLOMERULAR FILTRATION RATE 52.8 (>39)
[2017-02-25 06:24] LABS: CALCIUM LEVEL 7.9 MG/DL (8.8-10.2)
[2017-02-25] MEDS: HumaLOG INSULIN (NovoLOG) PER UNIT SC SCH ×4 (06:58→18:28)
[2017-02-25] MEDS: ENOXAPARIN 40 MG/0.4 ML SYRINGE (J1650) SC SCH (09:58)
[2017-02-25] MEDS: predniSONE 10 MG TAB PO SCH ×2 (09:59→20:16)
[2017-02-25] MEDS: PANTOPRAZOLE 40MG INJ (PROTONIX) (C9113) IV SCH (09:59)
[2017-02-25 14:00] VITALS: BP 130/68
--- NOTE | 2017-02-25 15:51 | IPNPDOC ---
Subjective General Date/Time Seen The patient was seen on 02/25/17 at 15:46. Subject Chief Complaint/History The patient is a 72-year-old female admitted with a reason for visit of Enterocutaneous Fistula. Patient is seen this morning, appears comfortable. She denies any abdominal discomfort. The bur continues drain was removed yesterday which allowed us to better control the fistula. She does not have much output from her ileostomy. She denies nausea or vomiting. Current Medications Current Medications Current Medications Acetaminophen (Tylenol Tab) 650 mg Q4HP PRN PO MILD PAIN or TEMP > 101; Start 02/23/17 at 14:45; Stop 03/25/17 at 14:44 Acetaminophen/ Hydrocodone Bitart ([place], Anexsia 5/325) 1 tab Q4HP PRN PO MODERATE PAIN (PS 5-7); Start 02/23/17 at 14:45; Stop 03/02/17 at 14:44 Acetaminophen/ Hydrocodone Bitart ([place], Anexsia 5/325) 2 tab Q6HP PRN PO SEVERE PAIN (PS 8-10); Start 02/23/17 at 14:45; Stop 03/02/17 at 14:44 Enoxaparin Sodium (Lovenox) 40 mg DAILY SC Last administered on 02/25/17 09:58 ; Start 02/23/17 at 09:00; Stop 02/28/17 at 08:59 Heparin Sodium (Heparin (Flush)) 200 units ASDIRECTED PRN IV SEE LABEL COMMENTS ; Start 02/24/17 at 17:00; Stop 03/26/17 at 16:59 Heparin Sodium (Heparin (Flush)) 200 units PICC IV Last administered on 05:30; Start 02/24/17 at 18:00; Stop 03/26/17 at 17:59 Home Med (Med Rec Complete!) ASDIRECTED XX ; Start 02/23/17 at 14:45; Stop 02/23/17 at 14:45; Status DC Insulin Human Lispro (HumaLOG INSULIN) See Protocol Table Q6H SC Last administered on 02/25/17 06:58; Start 02/24/17 at 18:00; Stop 02/25/17 at 12:01 ; Status DC Lactated Ringer's 1,000 ml @ 125 mls/hr Q8H IV Last administered on 02/24/17 08:33; Start 02/23/17 at 14:32; Stop 02/24/17 at 17:41; Status DC Miscellaneous (Unresolved Clarification Entry) SEE LABEL COMMENTS UNRESOLVED XX ; Start 02/24/17 at 00:01; Stop 02/24/17 at 13:39; Status DC Morphine Sulfate (Morphine Sulfate Inj) 4 mg Q2HP PRN IV SEVERE PAIN (PS 8-10) Last administered on 02/25/17 05:13; Start 02/23/17 at 14:45; Stop 03/02/17 at 14:44 Multivitamins 10 ml/Chromium/ Copper/Manganese/ Seleni/Zn 1 ml/ Amino Ac/ Electrol/ Dextrose/Calcium 2,577 ml @ 75 mls/hr ONCE@1800 IV Last administered on 02/24/17 18:30; Start 02/24/17 at 18:00; Stop 02/25/17 at 17:59 Ondansetron HCl (ZOFRAN INJection) 4 mg Q6HP PRN IV NAUSEA OR VOMITING Last administered on 02/24/17 17:11; Start 02/23/17 at 14:45; Stop 03/25/17 at 14:44 Pantoprazole Sodium (Protonix) 40 mg DAILY IV Last administered on 02/25/17 09 :59; Start 02/23/17 at 09:00; Stop 03/25/17 at 08:59 Prednisone (Deltasone) 10 mg BID PO Last administered on 02/25/17 09:59; Start 02/24/17 at 09:00; Stop 03/26/17 at 08:59 Sodium Chloride (Saline Lock Flush) 10 ML PICC IV Last administered on 05:31; Start 02/24/17 at 18:00; Stop 03/26/17 at 17:59 Sodium Chloride (Saline Lock Flush) 10ML ASDIRECTED PRN IV SEE LABEL COMMENTS; Start 02/24/17 at 17:00; Stop 03/26/17 at 16:59 Allergies Coded Allergies: Sulfa Drugs (Verified Allergy, Unknown, RASH, 07/25/12) Sulfa Drugs Cross Reactors (Verified Allergy, Unknown, RASH, 07/25/12) Balsalazide (Verified Adverse Reaction, Mild, IRRITABILITY, 10/09/13) Budesonide (Verified Adverse Reaction, Mild, GI UPSET, 10/09/13) Objective Physical Examination Examination GENERAL APPEARANCE: Comfortable. SKIN: Warm and dry. HEENT: Mildly pale palpebral conjunctiva, lips are dry. NECK: Supple, no thyromegaly. No obvious jugular venous distention. LUNGS: Clear to auscultation bilaterally. No wheezing appreciated. HEART: No chest wall abnormalities. Regular rate and rhythm with no murmurs appreciated. ABDOMEN: Abdomen is flat, soft, nondistended. Ileostomy the left side is only a small amount of brownish liquid in the bag, below this is the fistula with a urostomy bag in place. Seems to be adequately containing the fistula output. Fistula output looks the same as the ileostomy output. Surrounding skin around the fistula looks less macerated, less erythematous.. EXTREMITIES: Extremities have no deformities. No edema identified. Vital Signs Vital Signs Date Time Temp Pulse Resp B/P (MAP) Pulse Ox O2 Delivery O2 Flow Rate FiO2 02/25/17 07:45 Room Air 02/25/17 06:00 97.9 74 18 151/80 (103) 100 I&Os I&O- Last 24 Hours up to 6 AM 02/26/17 06:00 Intake Total 0 ml Balance 0 ml Laboratory Data Labs 24H Laboratory Tests 2 02/24/17 18:03: Bedside Glucose (Misc Panel) 60L 02/24/17 21:32: Bedside Glucose (Misc Panel) 134H 02/25/17 05:35: Immature Granulocyte % (Auto) 1.1H, White Blood Count 6.2, Red Blood Count 3.33L , Hemoglobin 9.8#L, Hematocrit 30.7L, Mean Corpuscular Volume 92.2, Mean Corpuscular Hemoglobin 29.4, Mean Corpuscular Hemoglobin Concent 31.9L, Red Cell Distribution Width 17.7H, Platelet Count 155, Neutrophils (%) (Auto) 87.3H , Lymphocytes (%) (Auto) 4.0L, Monocytes (%) (Auto) 7.4H, Eosinophils (%) (Auto ) 0.0, Basophils (%) (Auto) 0.2, Neutrophils # (Auto) 5.4, Lymphocytes # (Auto) 0.3L, Monocytes # (Auto) 0.5, Eosinophils # (Auto) 0.0, Basophils # (Auto) 0.0, Immature Granulocyte # (Auto) 0.1H, Nucleated Red Blood Cells % (auto) 0.0, Anion Gap 7L, Glomerular Filtration Rate 52.8, Blood Urea Nitrogen 20H, Creatinine 1.09H, Sodium Level 137, Potassium Level 4.0, Chloride Level 102, Carbon Dioxide Level 28, Calcium Level 7.9#L, C-Reactive Protein, Quantitative 14.50H 02/25/17 11:26: Bedside Glucose (Misc Panel) 136H CBC/BMP Laboratory Tests 02/25/17 05:35 Red Blood Count 3.33 L, Mean Corpuscular Volume 92.2, Mean Corpuscular Hemoglobin 29.4, Mean Corpuscular Hemoglobin Concent 31.9 L, Red Cell Distribution Width 17.7 H, Neutrophils (%) (Auto) 87.3 H, Lymphocytes (%) (Auto ) 4.0 L, Monocytes (%) (Auto) 7.4 H, Eosinophils (%) (Auto) 0.0, Basophils (%) ( Auto) 0.2, Neutrophils # (Auto) 5.4, Lymphocytes # (Auto) 0.3 L, Monocytes # ( Auto) 0.5, Eosinophils # (Auto) 0.0, Basophils # (Auto) 0.0, Calcium Level 7.9 # L Microbiology Microbiology 02/23/17 Blood Culture - Preliminary, Resulted No Growth after 48 hours. All Specime... Impression Crohn's disease Enterocutaneous fistula Adrenal insufficiency Chronic kidney disease Anemia She has been placed on TPN and made nothing by mouth. We will need to see how much comes out from her enterocutaneous fistula for the following week. Fortunately she is not showing any signs of sepsis from this. At some point next week will repeat the CT scan of the abdomen and pelvis to make sure the pelvic abscess is adequately drained. We'll continue her on ciprofloxacin and metronidazole. She is on a tapering dose of her steroids, presently at 10 mg twice a day. Had a long discussion with her and her regarding the overall plan. Unfortunately also our fluoroscopy suite is down for the foreseeable future so he could not do a small bowel follow-through as I originally planned on Monday. I will have to discuss with the radiologist if there are any other options available, including a CT enterography if you're able to do this. If we are able to control the pelvic abscess, chiki would like to have her start on some biologic therapy to control her Crohn's disease and to see if possibly the fistula will close with the treatment of her Crohn's disease. As I previously mentioned my concern is that she may need an extensive bowel resection which puts her at risk for short gut syndrome. Certainly before undergoing surgery we will need to define the extent of bowel involvement. Plan / VTE VTE Prophylaxis Ordered?: Yes AMY DUBON MD Feb 25, 2017 15:51
[2017-02-25] MEDS ORDERED: AMINO AC/ELECTROLYTE/DEX/CALC 2,566 ML IV SCH (18:00)
[2017-02-25] MEDS: PIPERACILLIN/TAZOBACTAM SOD 3.375 GM in D5W 50 ML IV SCH (18:29)
[2017-02-25] MEDS: NORCO, ANEXSIA 5/325MG TABLET (HYDROcodone/ACETAMINOPHEN) PO PRN (18:53)
[2017-02-25 22:00] VITALS: BP 126/76
[2017-02-26] MEDS: PIPERACILLIN/TAZOBACTAM SOD 3.375 GM in D5W 50 ML IV SCH ×4 (00:52→18:15)
[2017-02-26] MEDS: HumaLOG INSULIN (NovoLOG) PER UNIT SC SCH ×4 (00:52→18:14)
[2017-02-26] MEDS: ACETAMINOPHEN TAB 650MG DOSE (2X325MG) PO PRN ×2 (03:47→22:13)
[2017-02-26] MEDS: SODIUM CHLORIDE 0.9% INJ 10 ML SYR IV SCH ×2 (05:47→18:15)
[2017-02-26 06:00] VITALS: BP 124/69
[2017-02-26 06:51] LABS: MEAN CORPUSCULAR HEMOGLOBIN 28.9 pg (27.0-33.0); MEAN CORPUSCULAR HGB CONC 31.8 g/dl (32.0-36.5); MEAN CORPUSCULAR VOLUME 90.9 fl (80.0-96.0); PLATELET COUNT, AUTOMATED 178 10^3/uL (150-450); RED CELL DISTRIBUTION WIDTH 17.5 % (11.5-14.5); WHITE BLOOD COUNT 5.3 10^3/uL (4.0-10.0)
[2017-02-26 06:52] LABS: ADD MANUAL DIFFER YES; DIFF SLIDE NUMBER 52; POS COUNT POS FLAG; POSITIVE MORPH POS FLAG
[2017-02-26 07:16] LABS: BANDS 2 % (< 11)
[2017-02-26 07:17] LABS: ANISOCYTOSIS 1+
[2017-02-26 07:23] LABS: ANION GAP 9 MEQ/L (8-16); BLOOD UREA NITROGEN 22 MG/DL (7-18); CALCIUM LEVEL 8.6 MG/DL (8.8-10.2); CARBON DIOXIDE LEVEL 28 MEQ/L (21-32); CHLORIDE LEVEL 105 MEQ/L (98-107); CREATININE FOR GFR 0.89 MG/DL (0.55-1.02); GLOMERULAR FILTRATION RATE > 60.0 (>39); GLUCOSE, FASTING 80 MG/DL (83-110); POTASSIUM SERUM 3.7 MEQ/L (3.5-5.1); SODIUM LEVEL 142 MEQ/L (136-145)
--- NOTE | 2017-02-26 09:29 | IPNPDOC ---
Subjective General Date/Time Seen The patient was seen on 02/26/17 at 09:26. Subject Chief Complaint/History The patient is a 72-year-old female admitted with a reason for visit of Enterocutaneous Fistula. Relatively stable, complains of mild abdominal discomfort (periumbilical). Significant development overnight is drainage of what appears to be enteric contents in the fistula now (same greenish material as coming out from ileostomy ) Afebrile. Patient on TPN. Current Medications Current Medications Current Medications Acetaminophen (Tylenol Tab) 650 mg Q4HP PRN PO MILD PAIN or TEMP > 101 Last administered on 02/26/17 03:47; Start 02/23/17 at 14:45; Stop 03/25/17 at 14:44 Acetaminophen/ Hydrocodone Bitart ([place], Anexsia 5/325) 1 tab Q4HP PRN PO MODERATE PAIN (PS 5-7); Start 02/23/17 at 14:45; Stop 03/02/17 at 14:44 Acetaminophen/ Hydrocodone Bitart ([place], Anexsia 5/325) 2 tab Q6HP PRN PO SEVERE PAIN (PS 8-10) Last administered on 02/25/17 18:53; Start 02/23/17 at 14 :45; Stop 03/02/17 at 14:44 Amino Ac/Electrol/ Dextrose/Calcium 2,566 ml @ 75 mls/hr ONCE@1800 IV Last administered on 02/25/17 18:28; Start 02/25/17 at 18:00; Stop 02/26/17 at 17:59 Enoxaparin Sodium (Lovenox) 40 mg DAILY SC Last administered on 02/25/17 09:58 ; Start 02/23/17 at 09:00; Stop 02/28/17 at 08:59 Heparin Sodium (Heparin (Flush)) 200 units ASDIRECTED PRN IV SEE LABEL COMMENTS ; Start 02/24/17 at 17:00; Stop 03/26/17 at 16:59 Heparin Sodium (Heparin (Flush)) 200 units PICC IV Last administered on 05:46; Start 02/24/17 at 18:00; Stop 03/26/17 at 17:59 Home Med (Med Rec Complete!) ASDIRECTED XX ; Start 02/23/17 at 14:45; Stop 02/23/17 at 14:45; Status DC Insulin Human Lispro (HumaLOG INSULIN) See Protocol Table Q6H SC Last administered on 02/25/17 06:58; Start 02/24/17 at 18:00; Stop 02/25/17 at 12:01 ; Status DC Insulin Human Lispro (HumaLOG INSULIN) See Protocol Table Q6H SC Last administered on 02/26/17 05:46; Start 02/25/17 at 18:00; Stop 02/26/17 at 12:01 Lactated Ringer's 1,000 ml @ 125 mls/hr Q8H IV Last administered on 02/24/17 08:33; Start 02/23/17 at 14:32; Stop 02/24/17 at 17:41; Status DC Miscellaneous (Unresolved Clarification Entry) SEE LABEL COMMENTS UNRESOLVED XX ; Start 02/24/17 at 00:01; Stop 02/24/17 at 13:39; Status DC Morphine Sulfate (Morphine Sulfate Inj) 4 mg Q2HP PRN IV SEVERE PAIN (PS 8-10) Last administered on 02/25/17 22:20; Start 02/23/17 at 14:45; Stop 03/02/17 at 14:44 Multivitamins 10 ml/Chromium/ Copper/Manganese/ Seleni/Zn 1 ml/ Amino Ac/ Electrol/ Dextrose/Calcium 2,577 ml @ 75 mls/hr ONCE@1800 IV Last administered on 02/24/17 18:30; Start 02/24/17 at 18:00; Stop 02/25/17 at 17:59 ; Status DC Ondansetron HCl (ZOFRAN INJection) 4 mg Q6HP PRN IV NAUSEA OR VOMITING Last administered on 02/24/17 17:11; Start 02/23/17 at 14:45; Stop 03/25/17 at 14:44 Pantoprazole Sodium (Protonix) 40 mg DAILY IV Last administered on 02/25/17 09 :59; Start 02/23/17 at 09:00; Stop 03/25/17 at 08:59 Piperacillin Sod/ Tazobactam Sod 3.375 gm/Dextrose 50 ml @ 50 mls/hr Q6H IV Last administered on 02/26/17 05:46; Start 02/25/17 at 18:00; Stop 03/04/17 at 17:59 Prednisone (Deltasone) 10 mg BID PO Last administered on 02/25/17 20:16; Start 02/24/17 at 09:00; Stop 03/26/17 at 08:59 Sodium Chloride (Saline Lock Flush) 10 ML PICC IV Last administered on 05:47; Start 02/24/17 at 18:00; Stop 03/26/17 at 17:59 Sodium Chloride (Saline Lock Flush) 10ML ASDIRECTED PRN IV SEE LABEL COMMENTS; Start 02/24/17 at 17:00; Stop 03/26/17 at 16:59 Allergies Coded Allergies: Sulfa Drugs (Verified Allergy, Unknown, RASH, 07/25/12) Sulfa Drugs Cross Reactors (Verified Allergy, Unknown, RASH, 07/25/12) Balsalazide (Verified Adverse Reaction, Mild, IRRITABILITY, 10/09/13) Budesonide (Verified Adverse Reaction, Mild, GI UPSET, 10/09/13) Objective Physical Examination Examination GENERAL APPEARANCE:Patient seen, laying in bed, awake, alert, and oriented. Comfortable, in no acute distress. SKIN: warm and dry. slight erythema around fistula site but no extensive cellulitis. HEENT: Normocephalic, atraumatic. mild pale palpebral conjunctiva, anicteric sclerae. Lips and mucosa appear dry. NECK: Supple, no thyromegaly. No obvious jugular venous distention. LUNGS: Clear to auscultation bilaterally. No wheezing appreciated. HEART: No chest wall abnormalities. Regular rate and rhythm with no murmurs appreciated. ABDOMEN: Abdomen is flat, soft, nondistended. LLQ ileostomy pink viable minimal output for the past day. Left suprapubic fistula site -drainage controlled with the urostomy bag, now with same greenish output as the ileostomy, minimal skin irritation, improved. Mild vague tenderness centered below umbilical area towards suprapubic area. No rebound or guarding. EXTREMITIES: Extremities have no deformities. No edema identified. Vital Signs Vital Signs Date Time Temp Pulse Resp B/P (MAP) Pulse Ox O2 Delivery O2 Flow Rate FiO2 02/26/17 06:00 97.3 72 18 124/69 (87) 97 Room Air I&Os I&O- Last 24 Hours up to 6 AM 02/27/17 06:00 Intake Total 1000 ml Output Total 300 ml Balance 700 ml Laboratory Data Labs 24H Laboratory Tests 2 02/25/17 11:26: Bedside Glucose (Misc Panel) 136H 02/25/17 17:08: Bedside Glucose (Misc Panel) 186H 02/25/17 23:39: Bedside Glucose (Misc Panel) 158H 02/26/17 05:30: Bedside Glucose (Misc Panel) 144H 02/26/17 05:40: Immature Granulocyte % (Auto) , Nucleated Red Blood Cells % (auto) 0.0, Neutrophils 80H, Band Neutrophils 2, Lymphocytes (Manual) 10L, Monocytes (Manual ) 7, Metamyelocytes 1H, Platelet Estimate NORMAL, Anisocytosis 1+, Anion Gap 9, Glomerular Filtration Rate > 60.0, Blood Urea Nitrogen 22H, Creatinine 0.89, Sodium Level 142, Potassium Level 3.7, Chloride Level 105, Carbon Dioxide Level 28, Calcium Level 8.6L CBC/BMP Laboratory Tests 02/26/17 05:40 Red Blood Count 3.94 L, Mean Corpuscular Volume 90.9, Mean Corpuscular Hemoglobin 28.9, Mean Corpuscular Hemoglobin Concent 31.8 L, Red Cell Distribution Width 17.5 H, Calcium Level 8.6 L Microbiology Microbiology 02/23/17 Blood Culture - Preliminary, Resulted Impression Crohn's Disease Enterocutaneous Fistula Pelvic Abscess Adrenal Insufficiency antibiotic was changed to zosyn for gm(+) rods on gm stain on blood culture, though no growth documented, possibly contaminant also on flagyl for coverage of pelvic abscess continue with TPN, NPO New/change in output of the enterocutaneous fistula now same greenish output as ileostomy where it was mostly purulent material the past two days. The biggest question in my mind is whether the bowel is draining into the abdomen more than into the ileostomy which I think would most likely need surgical intervention if that is the case. I spoke to the patient, her and the nursing staff to record the output correctly as in our documentation only 20 mLs came out of the fistula and 100 mLs from ileostomy though the patient thinks more is coming out of the fistula than the ileostomy. Plan / VTE VTE Prophylaxis Ordered?: Yes AMY DUBON MD Feb 26, 2017 09:29
[2017-02-26] MEDS: PANTOPRAZOLE 40MG INJ (PROTONIX) (C9113) IV SCH (10:08)
[2017-02-26] MEDS: predniSONE 10 MG TAB PO SCH ×2 (10:08→22:13)
[2017-02-26] MEDS: ENOXAPARIN 40 MG/0.4 ML SYRINGE (J1650) SC SCH (10:09)
[2017-02-26] MEDS: MORPHINE 4 MG/ML 1ML SYRINGE IV PRN (10:24)
[2017-02-26 14:00] VITALS: BP 128/71
[2017-02-26] MEDS ORDERED: ELECTROLYTE IV SCH (18:00)
[2017-02-26] MEDS ORDERED: CALC IV SCH (18:00)
[2017-02-26] MEDS ORDERED: AMINO AC IV SCH (18:00)
[2017-02-26] MEDS ORDERED: POTASSIUM CHLORIDE IV SCH (18:00)
[2017-02-26] MEDS ORDERED: DEX IV SCH (18:00)
[2017-02-26 22:00] VITALS: BP 134/68
[2017-02-27] MEDS: PIPERACILLIN/TAZOBACTAM SOD 3.375 GM in D5W 50 ML IV SCH ×4 (00:25→18:29)
[2017-02-27] MEDS: HumaLOG INSULIN (NovoLOG) PER UNIT SC SCH ×4 (00:25→18:00)
[2017-02-27] MEDS: SODIUM CHLORIDE 0.9% INJ 10 ML SYR IV SCH ×2 (05:59→18:00)
[2017-02-27 06:00] VITALS: BP 136/74
[2017-02-27 06:02] LABS: BASO % 0.3 % (0.0-1.0); EOS % 0.3 % (0.0-3.0); LYMPH # 0.4 10^3/uL (1.5-4.5); LYMPH % 5.9 % (24.0-44.0); MEAN CORPUSCULAR HEMOGLOBIN 28.6 pg (27.0-33.0); MEAN CORPUSCULAR HGB CONC 31.5 g/dl (32.0-36.5); MEAN CORPUSCULAR VOLUME 91.1 fl (80.0-96.0); MONO # 0.2 10^3/uL (0.0-0.8); MONO % 3.9 % (0.0-5.0); NEUTROPHILS % 84.6 % (36.0-66.0); PLATELET COUNT, AUTOMATED 168 10^3/uL (150-450); RED CELL DISTRIBUTION WIDTH 17.5 % (11.5-14.5)
[2017-02-27 06:26] LABS: ANION GAP 7 MEQ/L (8-16); BLOOD UREA NITROGEN 20 MG/DL (7-18); CARBON DIOXIDE LEVEL 28 MEQ/L (21-32); CHLORIDE LEVEL 108 MEQ/L (98-107); CREATININE FOR GFR 0.83 MG/DL (0.55-1.02); GLOMERULAR FILTRATION RATE > 60.0 (>39); GLUCOSE, FASTING 96 MG/DL (83-110); SODIUM LEVEL 143 MEQ/L (136-145)
[2017-02-27 08:33] VITALS: BP 148/70
[2017-02-27] MEDS: PANTOPRAZOLE 40MG INJ (PROTONIX) (C9113) IV SCH (09:52)
[2017-02-27] MEDS: ACETAMINOPHEN TAB 650MG DOSE (2X325MG) PO PRN (09:53)
[2017-02-27] MEDS: predniSONE 10 MG TAB PO SCH ×2 (09:53→22:10)
[2017-02-27] MEDS: ENOXAPARIN 40 MG/0.4 ML SYRINGE (J1650) SC SCH (09:54)
[2017-02-27 14:13] VITALS: BP 140/72
[2017-02-27] MEDS: NORCO, ANEXSIA 5/325MG TABLET (HYDROcodone/ACETAMINOPHEN) PO PRN (15:41)
[2017-02-27] MEDS: MORPHINE 4 MG/ML 1ML SYRINGE IV PRN ×2 (17:52→22:11)
[2017-02-27] MEDS ORDERED: MULTIVITAMIN -ADULT INJECTION 10 ML, CR/CU/SE/MN/ZN INJ 1 ML in AMINO AC/ELECTROLYTE/DE... IV SCH (18:00)
[2017-02-27] MEDS ORDERED: MULTIVITAMIN -ADULT INJECTION 10 ML, CR/CU/SE/MN/ZN INJ 1 ML, POTASSIUM CHLORIDE INJ 20... IV SCH ×4 (18:00)
[2017-02-27 22:00] VITALS: BP 139/69
[2017-02-28] MEDS: PIPERACILLIN/TAZOBACTAM SOD 3.375 GM in D5W 50 ML IV SCH ×4 (00:53→18:12)
[2017-02-28] MEDS: HumaLOG INSULIN (NovoLOG) PER UNIT SC SCH ×4 (00:54→17:57)
[2017-02-28] MEDS: MORPHINE 4 MG/ML 1ML SYRINGE IV PRN (02:46)
[2017-02-28] MEDS: SODIUM CHLORIDE 0.9% INJ 10 ML SYR IV SCH ×2 (05:31→18:12)
[2017-02-28 05:53] LABS: MEAN CORPUSCULAR HEMOGLOBIN 29.3 pg (27.0-33.0); MEAN CORPUSCULAR HGB CONC 31.8 g/dl (32.0-36.5); MEAN CORPUSCULAR VOLUME 92.3 fl (80.0-96.0); PLATELET COUNT, AUTOMATED 159 10^3/uL (150-450); RED CELL DISTRIBUTION WIDTH 17.7 % (11.5-14.5); WHITE BLOOD COUNT 6.5 10^3/uL (4.0-10.0)
[2017-02-28 05:58] LABS: POSITIVE MORPH POS FLAG
[2017-02-28 05:59] LABS: ADD MANUAL DIFFER YES; DIFF SLIDE NUMBER 31; POS COUNT POS FLAG
[2017-02-28 06:00] VITALS: BP 140/88
[2017-02-28 06:19] LABS: ANION GAP 6 MEQ/L (8-16); BLOOD UREA NITROGEN 20 MG/DL (7-18); CARBON DIOXIDE LEVEL 28 MEQ/L (21-32); CHLORIDE LEVEL 108 MEQ/L (98-107); CREATININE FOR GFR 0.79 MG/DL (0.55-1.02); GLOMERULAR FILTRATION RATE > 60.0 (>39); GLUCOSE, FASTING 97 MG/DL (83-110); POTASSIUM SERUM 4.1 MEQ/L (3.5-5.1); SODIUM LEVEL 142 MEQ/L (136-145)
[2017-02-28 06:37] LABS: ANISOCYTOSIS 1+; BANDS 1 % (< 11)
[2017-02-28] MEDS: predniSONE 10 MG TAB PO SCH ×2 (08:34→20:42)
[2017-02-28] MEDS: ENOXAPARIN 40 MG/0.4 ML SYRINGE (J1650) SC SCH (08:35)
[2017-02-28] MEDS: PANTOPRAZOLE 40MG INJ (PROTONIX) (C9113) IV SCH (08:35)
[2017-02-28 14:00] VITALS: BP 128/71
[2017-02-28] MEDS: NORCO, ANEXSIA 5/325MG TABLET (HYDROcodone/ACETAMINOPHEN) PO PRN (15:51)
[2017-02-28] MEDS ORDERED: CALC IV SCH (18:00)
[2017-02-28] MEDS ORDERED: DEX IV SCH (18:00)
[2017-02-28] MEDS ORDERED: ELECTROLYTE IV SCH (18:00)
[2017-02-28] MEDS ORDERED: AMINO AC IV SCH (18:00)
[2017-02-28] MEDS ORDERED: POTASSIUM CHLORIDE IV SCH (18:00)
[2017-02-28 22:00] VITALS: BP 131/66
[2017-03-01] MEDS: PIPERACILLIN/TAZOBACTAM SOD 3.375 GM in D5W 50 ML IV SCH ×3 (00:59→13:36)
[2017-03-01] MEDS: ACETAMINOPHEN TAB 650MG DOSE (2X325MG) PO PRN (01:07)
[2017-03-01 06:00] VITALS: BP 168/75
[2017-03-01 07:07] LABS: MEAN CORPUSCULAR HEMOGLOBIN 29.1 pg (27.0-33.0); MEAN CORPUSCULAR HGB CONC 31.5 g/dl (32.0-36.5); MEAN CORPUSCULAR VOLUME 92.3 fl (80.0-96.0); PLATELET COUNT, AUTOMATED 182 10^3/uL (150-450); RED CELL DISTRIBUTION WIDTH 17.9 % (11.5-14.5); WHITE BLOOD COUNT 7.2 10^3/uL (4.0-10.0)
[2017-03-01 07:09] LABS: ADD MANUAL DIFFER YES; DIFF SLIDE NUMBER 24; POS COUNT POS FLAG; POSITIVE MORPH POS FLAG
[2017-03-01 07:25] LABS: ANION GAP 6 MEQ/L (8-16); BLOOD UREA NITROGEN 24 MG/DL (7-18); CALCIUM LEVEL 8.3 MG/DL (8.8-10.2); CARBON DIOXIDE LEVEL 27 MEQ/L (21-32); CHLORIDE LEVEL 111 MEQ/L (98-107); CREATININE FOR GFR 0.86 MG/DL (0.55-1.02); GLOMERULAR FILTRATION RATE > 60.0 (>39); GLUCOSE, FASTING 85 MG/DL (83-110); SODIUM LEVEL 144 MEQ/L (136-145)
[2017-03-01 07:41] LABS: ANISOCYTOSIS 1+; BANDS 1 % (< 11); HYPOCHROMASIA 1+; MICROCYTOSIS 1+
[2017-03-01] MEDS: HumaLOG INSULIN (NovoLOG) PER UNIT SC SCH ×5 (07:52→23:13)
[2017-03-01] MEDS: SODIUM CHLORIDE 0.9% INJ 10 ML SYR IV SCH ×2 (07:59→19:37)
[2017-03-01] MEDS: ENOXAPARIN 40 MG/0.4 ML SYRINGE (J1650) SC SCH (10:18)
[2017-03-01] MEDS: PANTOPRAZOLE 40MG INJ (PROTONIX) (C9113) IV SCH (10:18)
[2017-03-01] MEDS: predniSONE 10 MG TAB PO SCH ×2 (10:18→21:34)
[2017-03-01 14:00] VITALS: BP 150/70
[2017-03-01] MEDS: NORCO, ANEXSIA 5/325MG TABLET (HYDROcodone/ACETAMINOPHEN) PO PRN ×2 (15:21→23:13)
[2017-03-01] MEDS ORDERED: MULTIVITAMIN -ADULT INJECTION 10 ML, CR/CU/SE/MN/ZN INJ 1 ML, POTASSIUM CHLORIDE INJ 20... IV SCH ×4 (18:00)
[2017-03-01 22:00] VITALS: BP 150/77
[2017-03-01] MEDS: PIPERACILLIN/TAZOBACTAM SOD 2.25 GM in D5W 50 ML IV SCH (23:13)
[2017-03-02] MEDS ORDERED: PIPERACILLIN/TAZOBACTAM SOD 2.25 GM in D5W 50 ML IV SCH ×2
[2017-03-02] MEDS: PIPERACILLIN/TAZOBACTAM SOD 2.25 GM in D5W 50 ML IV SCH ×3 (05:37→17:15)
[2017-03-02] MEDS: SODIUM CHLORIDE 0.9% INJ 10 ML SYR IV SCH ×2 (05:37→17:15)
[2017-03-02 06:00] VITALS: BP 154/81
[2017-03-02] MEDS: HumaLOG INSULIN (NovoLOG) PER UNIT SC SCH ×3 (06:00→18:00)
[2017-03-02] MEDS ORDERED: GASTROGRAFIN SOLUTION 30ML PO ONE ×2 (06:00→09:45)
[2017-03-02] MEDS ORDERED: GASTROGRAFIN SOLUTION 30ML (Q9963) PO ONE ×2 (06:30→10:15)
[2017-03-02 06:33] LABS: ALBUMIN 2.1 GM/DL (3.2-5.2); ALBUMIN/GLOBULIN RATIO 0.64 (1.00-1.93); ALKALINE PHOSPHATASE 91 U/L (45-117); ALT/SGPT 31 U/L (12-78); ANION GAP 8 MEQ/L (8-16); AST/SGOT 17 U/L (7-37); BILIRUBIN,TOTAL 0.4 MG/DL (0.2-1.0); BLOOD UREA NITROGEN 24 MG/DL (7-18); CALCIUM LEVEL 8.2 MG/DL (8.8-10.2); CARBON DIOXIDE LEVEL 26 MEQ/L (21-32); CHLORIDE LEVEL 110 MEQ/L (98-107); GLOMERULAR FILTRATION RATE > 60.0 (>39); GLUCOSE, FASTING 98 MG/DL (83-110); SODIUM LEVEL 144 MEQ/L (136-145); TOTAL PROTEIN 5.4 GM/DL (6.4-8.2)
[2017-03-02] MEDS: ENOXAPARIN 40 MG/0.4 ML SYRINGE (J1650) SC SCH (08:25)
[2017-03-02] MEDS: predniSONE 10 MG TAB PO SCH ×2 (08:25→20:31)
[2017-03-02] MEDS: PANTOPRAZOLE 40MG TAB (PROTONIX) PO SCH (08:25)
--- NOTE | 2017-03-02 11:27 | REP ---
CT of the pelvis without IV or bowel contrast: Comparison is 02/23/2017. The patients known ileostomy is intact is to the left of midline. Previously there was a pigtail drainage catheter extending into the abscess pocket anteriorly in the pelvis. This pigtail catheter has been removed. There is no focal fluid collection although there are several bowel loops adjacent to one another similar to the prior study. On the prior study there was a fistulous tract extending to the anterior abdominal wall slightly inferior to the right of the ileostomy. This tract is again identified extending to an open wound on the skin surface. However, no fluid is identified within this tract at this time. There is no pneumoperitoneum or ascites. There is no bowel distension. The bladder is unremarkable. Signed by Brando Guevara MD 03/02/2017 11:19 A
[2017-03-02 14:00] VITALS: BP 111/69
[2017-03-02] MEDS ORDERED: ELECTROLYTE IV SCH (18:00)
[2017-03-02] MEDS ORDERED: DEX IV SCH (18:00)
[2017-03-02] MEDS ORDERED: CALC IV SCH (18:00)
[2017-03-02] MEDS ORDERED: AMINO AC IV SCH (18:00)
[2017-03-02] MEDS ORDERED: POTASSIUM CHLORIDE IV SCH (18:00)
[2017-03-02 22:00] VITALS: BP 122/68
[2017-03-03] MEDS: PIPERACILLIN/TAZOBACTAM SOD 2.25 GM in D5W 50 ML IV SCH ×4 (00:53→17:20)
--- NOTE | 2017-03-03 05:26 | IPN ---
DATE OF SERVICE: 03/02/2017 HISTORY: Patient has a fistula at the lower midline from the small bowel with her ileostomy slightly above this. Both of these are now controlled with ostomy appliances. She has bilious fluid from her fistula site with some blood tinge. VITAL SIGNS: She is afebrile with stable vital signs. Intake and output shows that her intake is probably under recorded and her output shows some drainage from both her fistula and ostomy, though this is fairly limited from both areas. Her urine output is certainly adequate. PHYSICAL EXAMINATION: Shows a pleasant woman in no distress. She appears somewhat pale. Heart and lung exams are unremarkable. The abdomen is flat, soft and without tenderness. She has ostomy appliances on her ileostomy and her fistula site. LABORATORIES: Today she had a CPA that shows normal electrolytes with the exception of a chloride of 110. Her BUN is 24 with a creatinine of 0.8. Total protein is 5.4 with an albumin of 2.1. Fingerstick blood sugars have been running between 91 and 130. IMAGING STUDIES: The patient had a CT scan of the pelvis today. This clearly shows the area of the fistula extending from an area of bowel loops just below the peritoneum. This appears to be somewhere near the area of a small bowel anastomosis. There does not appear to be any significant free fluid or abscess within the pelvis. IMPRESSION: Controlled enterocutaneous fistula with diminished output, now nothing by mouth on total parenteral nutrition (TPN). She is now remaining on Zosyn for antibiotic coverage and is on prednisone 10 mg by mouth twice daily. PLAN: The patient will remain on TPN and I will keep her nothing by mouth for now. We discussed discharging her home on total parenteral nutrition with followup in the office. I will check with Dr. Callejas to see if he has any other recommendations regarding management of her Crohn's and her fistula before discharge. We will plan on sending her home with the TPN as soon as the 03 of March if possible.
[2017-03-03] MEDS: HumaLOG INSULIN (NovoLOG) PER UNIT SC SCH ×4 (05:52→17:50)
[2017-03-03] MEDS: SODIUM CHLORIDE 0.9% INJ 10 ML SYR IV SCH ×2 (05:53→17:20)
[2017-03-03 06:00] VITALS: BP 137/75
[2017-03-03] MEDS: PANTOPRAZOLE 40MG TAB (PROTONIX) PO SCH (08:47)
[2017-03-03] MEDS: predniSONE 10 MG TAB PO SCH ×2 (08:47→20:24)
[2017-03-03] MEDS: ENOXAPARIN 40 MG/0.4 ML SYRINGE (J1650) SC SCH (08:47)
[2017-03-03 14:00] VITALS: BP 160/90
[2017-03-03] MEDS ORDERED: MULTIVITAMIN -ADULT INJECTION 10 ML, CR/CU/SE/MN/ZN INJ 1 ML, POTASSIUM CHLORIDE INJ 20... IV SCH ×4 (18:00)
--- NOTE | 2017-03-03 19:33 | IPN ---
DATE: 03/01/2017 The patient is a 72-year-old woman now with a fistula from her Crohn's disease through the anterior midline of the abdominal wall just below the level of her ileostomy. Vital signs show that over the last 24 hours she has remained afebrile with stable vitals. She is not tachycardiac and her blood pressure is fine. Her intake and output shows balanced Intake and output (I and Os) on the . She remains on total parenteral nutrition and is nothing by mouth (npo). Her weight is remaining stable today. She weighed 47 kg, which is actually down slightly from the 6th. PHYSICAL EXAMINATION: Shows a pleasant, alert, somewhat pale-appearing woman in no distress. Heart and lung exams are unremarkable. The abdomen is flat. She has active bowel sounds. She has two ostomy appliances in the mid and lower abdomen, one right above the other. These are both draining some bilious fluid. LABORATORY DATA: Show that on the morning of the she had a white count of 7.2 with 91% neutrophils, one band and five lymphocytes. Hemoglobin is 11 with a hematocrit of 34 and a platelet count of 182,000. Chemistry profile shows a sodium 144, potassium 4.0, chloride 111, CO2 of 27, BUN of 24, creatinine 0.86 and a glucose of 85. A CRP on the morning of the was 0.68, which is down significantly from the time of admission. IMPRESSION: Enterocutaneous fistula of the lower abdominal wall just inferior to her ileostomy. She appears stable at this point with no signs of peritonitis. Her white count remains normal, though her differential is with a left shift, which may all be secondary to her continued use of steroids. PLAN: We will obtain a CT scan of the pelvis on the to look for any evidence of an undrained fluid collection or abscess within the pelvis. If this shows that her fistula appears to be draining without any other associated complications and we can consider sending her home on TPN to monitor the fistula. She may ultimately require surgical intervention for this.
[2017-03-03 22:00] VITALS: BP 139/79
[2017-03-04] MEDS: SODIUM CHLORIDE 0.9% INJ 10 ML SYR IV SCH ×2 (05:01→18:22)
[2017-03-04 05:38] LABS: ANION GAP 7 MEQ/L (8-16); BLOOD UREA NITROGEN 28 MG/DL (7-18); CALCIUM LEVEL 8.1 MG/DL (8.8-10.2); CARBON DIOXIDE LEVEL 26 MEQ/L (21-32); CHLORIDE LEVEL 111 MEQ/L (98-107); CREATININE FOR GFR 0.76 MG/DL (0.55-1.02); GLOMERULAR FILTRATION RATE > 60.0 (>39); GLUCOSE, FASTING 104 MG/DL (83-110); POTASSIUM SERUM 4.2 MEQ/L (3.5-5.1); SODIUM LEVEL 144 MEQ/L (136-145)
[2017-03-04] MEDS: HumaLOG INSULIN (NovoLOG) PER UNIT SC SCH ×5 (05:59→23:44)
[2017-03-04 06:00] VITALS: BP 128/71
[2017-03-04] MEDS: ENOXAPARIN 40 MG/0.4 ML SYRINGE (J1650) SC SCH (09:05)
[2017-03-04] MEDS: predniSONE 10 MG TAB PO SCH ×2 (09:05→20:59)
[2017-03-04] MEDS: PANTOPRAZOLE 40MG TAB (PROTONIX) PO SCH (09:05)
[2017-03-04 14:00] VITALS: BP 129/76
[2017-03-04] MEDS ORDERED: AMINO AC/ELECTROLYTE/DEX/CALC 2,566 ML IV SCH (18:00)
[2017-03-04 22:00] VITALS: BP 138/64
[2017-03-05] MEDS: SODIUM CHLORIDE 0.9% INJ 10 ML SYR IV SCH ×2 (05:42→18:12)
[2017-03-05] MEDS: HumaLOG INSULIN (NovoLOG) PER UNIT SC SCH ×3 (05:43→18:12)
[2017-03-05 06:00] VITALS: BP 146/77
[2017-03-05] MEDS: ENOXAPARIN 40 MG/0.4 ML SYRINGE (J1650) SC SCH (10:35)
[2017-03-05] MEDS: PANTOPRAZOLE 40MG TAB (PROTONIX) PO SCH (10:35)
[2017-03-05] MEDS: predniSONE 10 MG TAB PO SCH ×2 (10:35→20:14)
[2017-03-05 14:00] VITALS: BP 129/63
[2017-03-05] MEDS ORDERED: AMINO AC/ELECTROLYTE/DEX/CALC 2,566 ML IV SCH (18:00)
--- NOTE | 2017-03-05 19:36 | IPN ---
DATE: 03/03/2017 SUBJECTIVE: The patient has Crohn's disease with an ileostomy and a recent low midline enterocutaneous fistula. She is remaining nothing by mouth on total parenteral nutrition (TPN) and we had hoped to be able to send her home today. Vital signs show that she has been afebrile with a pulse ranging from 60s-90s. Her blood pressure is fine. Intake and output from 03/02 showed 900 in, with 2200 out, though given the stability of her weight, I suspect that we are missing some intake on her record. PHYSICAL EXAMINATION: The patient is alert, oriented and cooperative. She is somewhat pale. Heart and lung exams are unremarkable. The abdomen is flat and soft with no significant tenderness. She has two ostomy appliances on the lower abdomen: One which is more superior is over her ileostomy and this has minimal bilious output, and the ostomy appliance lower down in the midline is over her fistula and this is draining some bilious but somewhat browner, perhaps slightly bloody fluid. LABORATORY STUDIES: She has no CBC or chemistry this morning. Her fingerstick blood sugars have ranged from approximately 105-125. IMPRESSION: 1. Crohn's disease with history of recent pelvic abscess and now with an enterocutaneous fistula. Her recent CT scan shows no evidence of undrained pelvic collection. PLAN: We had planned to send her home today if possible. Unfortunately we cannot have adequate arrangements in place for the TPN with home nursing care until probably Monday or Monday next. She will continue on TPN here in the hospital and hopefully by Monday or Monday, we will have plans in place for her discharge.
[2017-03-05 22:00] VITALS: BP 137/74
[2017-03-06 06:00] VITALS: BP 128/73
[2017-03-06] MEDS: HumaLOG INSULIN (NovoLOG) PER UNIT SC SCH ×4 (06:00→17:51)
[2017-03-06] MEDS: SODIUM CHLORIDE 0.9% INJ 10 ML SYR IV SCH ×2 (06:17→17:52)
[2017-03-06] MEDS: PANTOPRAZOLE 40MG TAB (PROTONIX) PO SCH (08:50)
[2017-03-06] MEDS: ENOXAPARIN 40 MG/0.4 ML SYRINGE (J1650) SC SCH (08:50)
[2017-03-06] MEDS: predniSONE 10 MG TAB PO SCH ×2 (08:50→19:48)
[2017-03-06] MEDS ORDERED: MULTIVITAMIN -ADULT INJECTION 10 ML, CR/CU/SE/MN/ZN INJ 1 ML in AMINO AC/ELECTROLYTE/DE... IV SCH (18:00)
--- NOTE | 2017-03-06 18:07 | IPN ---
DATE: 03/06/2017 The patient was to be discharged today. I visited her this morning and she remained afebrile with stable vital signs. She reports that her ostomy and fistula have had little drainage out over the weekend, even though she did start some sips of clear liquids and popsicles. She has no pain. Physical exam shows that her abdomen is flat and soft. There is a minimal amount of bilious drainage through the ostomy and some murky or brownish drainage through her fistula site. LABORATORY DATA: The patient had no new labs today other than her fingerstick blood sugars that ranged from 85-129 over the past 24 hours. IMPRESSION: Small bowel fistula secondary to Crohn's, currently controlled. PLAN: The plan was to send the patient home today on home TPN but a snag occurred in that a change was made in the visiting nurse service would be taking care of her. Therefore she will be kept in the hospital one more day until 03/07/2017, when arrangements with the other visiting nurse agency should be completed. At that point she can be discharged home on home TPN.
[2017-03-06 22:00] VITALS: BP 144/71
[2017-03-07] MEDS: HumaLOG INSULIN (NovoLOG) PER UNIT SC SCH ×2 (00:06→06:09)
[2017-03-07 06:00] VITALS: BP 129/67
[2017-03-07] MEDS: SODIUM CHLORIDE 0.9% INJ 10 ML SYR IV SCH ×2 (06:09→10:42)
[2017-03-07] MEDS: ENOXAPARIN 40 MG/0.4 ML SYRINGE (J1650) SC SCH (08:56)
[2017-03-07] MEDS: PANTOPRAZOLE 40MG TAB (PROTONIX) PO SCH (08:56)
[2017-03-07] MEDS: predniSONE 10 MG TAB PO SCH (08:56)
== END 2017-03-07 11:00 | disposition home health service (06) | DRG 393 ==
LOC: M ED 09:59 → M ED INP 14:32 → M MS5PR 16:54
PROVIDERS: ADMIT Surgery; ATTEND Surgery
PROC: 02HV33Z Insertion of Infusion Device into Superior Vena Cava, Percutaneous Approach (ICD-10-PCS; principal; 2017-02-24)
DX: K63.2 Fistula of intestine (principal); K65.1 Peritoneal abscess; K50.90 Crohn's disease, unspecified, without complications; E27.40 Unspecified adrenocortical insufficiency; Z79.899 Other long term (current) drug therapy; Z88.2 Allergy status to sulfonamides; Z88.8 Allergy status to other drugs, medicaments and biological substances; Z68.20 Body mass index [BMI] 20.0-20.9, adult; K21.9 Gastro-esophageal reflux disease without esophagitis; M10.9 Gout, unspecified; I10 Essential (primary) hypertension

== ENCOUNTER → 2017-03-13 | Outpatient (REF) | payer MEDICARE ==
[~2017-03-13] MED LIST changes: +PRED10TA2 PO; +TYLE325T5 PO
== END ==
LOC: M SHH 13:55
PROVIDERS: ATTEND Internal Medicine Gastroenterology
DX: K50.013 Crohn's disease of small intestine with fistula (principal)

== ENCOUNTER → 2017-03-14 | Outpatient (REF) | payer MEDICARE ==
[2017-03-14 15:58] LABS: MEAN CORPUSCULAR HEMOGLOBIN 30.7 pg (27.0-33.0); MEAN CORPUSCULAR HGB CONC 32.1 g/dl (32.0-36.5); MEAN CORPUSCULAR VOLUME 95.5 fl (80.0-96.0); PLATELET COUNT, AUTOMATED 213 10^3/uL (150-450); RED CELL DISTRIBUTION WIDTH 19.3 % (11.5-14.5); WHITE BLOOD COUNT 8.7 10^3/uL (4.0-10.0)
[2017-03-14 16:03] LABS: POSITIVE DIFF POS FLAG
[2017-03-14 16:04] LABS: ADD MANUAL DIFFER YES; DIFF SLIDE NUMBER 328
[2017-03-14 16:21] LABS: ANISOCYTOSIS 3+; STOMATOCYTES 2+
[2017-03-14 16:22] LABS: MICROCYTOSIS 1+
[2017-03-14 16:26] LABS: ANION GAP 7 MEQ/L (8-16); BLOOD UREA NITROGEN 34 MG/DL (7-18); CALCIUM LEVEL 8.4 MG/DL (8.8-10.2); CARBON DIOXIDE LEVEL 29 MEQ/L (21-32); CHLORIDE LEVEL 105 MEQ/L (98-107); CREATININE FOR GFR 0.88 MG/DL (0.55-1.02); GLOMERULAR FILTRATION RATE > 60.0 (>39); GLUCOSE, FASTING 113 MG/DL (83-110); MAGNESIUM LEVEL 2.2 MG/DL (1.8-2.4); PHOSPHORUS LEVEL 4.4 MG/DL (2.5-4.9); SODIUM LEVEL 141 MEQ/L (136-145)
== END ==
LOC: M SHH 15:28
PROVIDERS: ATTEND Internal Medicine Gastroenterology
DX: K50.814 Crohn's disease of both small and large intestine with abscess (principal); K63.2 Fistula of intestine

== ENCOUNTER → 2017-03-20 | Outpatient (REF) | payer MEDICARE ==
[2017-03-20 16:19] LABS: BASO % 0.1 % (0.0-1.0); EOS % 0.1 % (0.0-3.0); IMMATURE GRANULOCYTE % 0.7 % (0-0); LYMPH % 2.4 % (24.0-44.0); MEAN CORPUSCULAR HEMOGLOBIN 30.1 pg (27.0-33.0); MEAN CORPUSCULAR HGB CONC 31.4 g/dl (32.0-36.5); MEAN CORPUSCULAR VOLUME 95.9 fl (80.0-96.0); MONO # 0.5 10^3/uL (0.0-0.8); NEUTROPHILS # 8.4 10^3/uL (1.8-7.7); NEUTROPHILS % 91.7 % (36.0-66.0); PLATELET COUNT, AUTOMATED 145 10^3/uL (150-450); RED CELL DISTRIBUTION WIDTH 19.1 % (11.5-14.5); WHITE BLOOD COUNT 9.2 10^3/uL (4.0-10.0)
[2017-03-20 16:55] LABS: ANION GAP 10 MEQ/L (8-16); BLOOD UREA NITROGEN 36 MG/DL (7-18); CALCIUM LEVEL 8.2 MG/DL (8.8-10.2); CARBON DIOXIDE LEVEL 26 MEQ/L (21-32); CHLORIDE LEVEL 103 MEQ/L (98-107); CREATININE FOR GFR 0.72 MG/DL (0.55-1.02); GLOMERULAR FILTRATION RATE > 60.0 (>39); GLUCOSE, FASTING 78 MG/DL (83-110); MAGNESIUM LEVEL 2.2 MG/DL (1.8-2.4); POTASSIUM SERUM 4.2 MEQ/L (3.5-5.1); SODIUM LEVEL 139 MEQ/L (136-145)
[2017-03-20 18:38] LABS: LYMPH # 0.2 10^3/uL (1.5-4.5); POSITIVE DIFF POS FLAG
== END ==
LOC: M SHH 15:25
PROVIDERS: ATTEND Surgery
DX: K50.814 Crohn's disease of both small and large intestine with abscess (principal); K63.2 Fistula of intestine

== ENCOUNTER → 2017-03-27 | Outpatient (REF) | payer MEDICARE ==
[~2017-03-27] MED LIST changes: +IRON28TA PO
[2017-03-27 13:33] LABS: BASO % 0.4 % (0.0-1.0); EOS # 0.1 10^3/uL (0.0-0.50); EOS % 0.6 % (0.0-3.0); IMMATURE GRANULOCYTE % 4.3 % (0-0); LYMPH # 0.5 10^3/uL (1.5-4.5); LYMPH % 4.6 % (24.0-44.0); MEAN CORPUSCULAR HEMOGLOBIN 30.7 pg (27.0-33.0); MEAN CORPUSCULAR HGB CONC 31.4 g/dl (32.0-36.5); MEAN CORPUSCULAR VOLUME 97.8 fl (80.0-96.0); MONO # 0.7 10^3/uL (0.0-0.8); MONO % 6.5 % (0.0-5.0); NEUTROPHILS # 8.4 10^3/uL (1.8-7.7); NEUTROPHILS % 83.6 % (36.0-66.0); PLATELET COUNT, AUTOMATED 245 10^3/uL (150-450); RED CELL DISTRIBUTION WIDTH 18.8 % (11.5-14.5); WHITE BLOOD COUNT 10.1 10^3/uL (4.0-10.0)
[2017-03-27 14:17] LABS: ANION GAP 9 MEQ/L (8-16); BLOOD UREA NITROGEN 34 MG/DL (7-18); CALCIUM LEVEL 7.9 MG/DL (8.8-10.2); CARBON DIOXIDE LEVEL 26 MEQ/L (21-32); CHLORIDE LEVEL 106 MEQ/L (98-107); CREATININE FOR GFR 0.88 MG/DL (0.55-1.02); GLOMERULAR FILTRATION RATE > 60.0 (>39); GLUCOSE, FASTING 76 MG/DL (83-110); MAGNESIUM LEVEL 2.4 MG/DL (1.8-2.4); PHOSPHORUS LEVEL 4.3 MG/DL (2.5-4.9); SODIUM LEVEL 141 MEQ/L (136-145)
== END ==
LOC: M SHH 13:15
PROVIDERS: ATTEND Surgery
DX: K63.2 Fistula of intestine (principal); K50.814 Crohn's disease of both small and large intestine with abscess

== ENCOUNTER 2017-03-31 13:29 | Day surgery (SDC) | payer MEDICARE ==
[~2017-03-31] VITALS: Ht 154.9 cm; Wt 53.5 kg
[2017-03-31] MEDS ORDERED: NS 1,000 ML IV ONE (14:00)
[2017-03-31] MEDS ORDERED: LIDOCAINE 2% INJ 100 MG/5 ML SDV (FOR ANES.) As Ordered ONE (15:15)
[2017-03-31] MEDS ORDERED: PROPOFOL 200 MG/20 ML VIAL As Ordered ONE ×2 (15:15→15:35)
[2017-03-31] MEDS ORDERED: SODIUM CHLORIDE 0.9% INJ 10 ML SYR IV PRN (16:00)
[2017-03-31 16:10] VITALS: BP 125/66
--- NOTE | 2017-03-31 16:13 | ROOR ---
Patient Name: Maral Etienne Procedure Date: 03/31/2017 3:13 PM Date of : 1945 Age: 72 Room: [facility] Gender: Female Note Status: Finalized Procedure: Ileoscopy Indications: History of subtotal colectomy, Inflammatory bowel disease Providers: Shane Callejas MD Referring MD: Cezar Olvera MD Requesting Provider: Medicines: Monitored Anesthesia Care Complications: No immediate complications. Procedure: Pre-Anesthesia Assessment: - Prior to the procedure, a History and Physical was performed, and patient medications and allergies were reviewed. The patient is competent. The risks and benefits of the procedure and the sedation options and risks were discussed with the patient. All questions were answered and informed consent was obtained. Patient identification and proposed procedure were verified by the physician, the nurse and the anesthesiologist in the procedure room. Mental Status Examination: alert and oriented. Airway Examination: normal oropharyngeal airway and neck mobility. Respiratory Examination: clear to auscultation. CV Examination: normal. Prophylactic Antibiotics: The patient does not require prophylactic antibiotics. Prior Anticoagulants: The patient has taken no previous anticoagulant or antiplatelet agents. ASA Grade Assessment: III - A patient with severe systemic disease. After reviewing the risks and benefits, the patient was deemed in satisfactory condition to undergo the procedure. The anesthesia plan was to use monitored anesthesia care (MAC). Immediately prior to administration of medications, the patient was re-assessed for adequacy to receive sedatives. The heart rate, respiratory rate, oxygen saturations, blood pressure, adequacy of pulmonary ventilation, and response to care were monitored throughout the procedure. The physical status of the patient was re-assessed after the procedure. After I obtained informed consent, the scope was passed under direct vision. Throughout the procedure, the patient's blood pressure, pulse, and oxygen saturations were monitored continuously.After I obtained informed consent, the scope was passed under direct vision. Throughout the procedure, the patient's blood pressure, pulse, and oxygen saturations were monitored continuously. The Colonoscope was introduced through the ileostomy and advanced to 15 cm into the ileum. The ileoscopy was performed without difficulty. The patient tolerated the procedure well. The total duration of the procedure was 25 minutes. Findings: Patient is status-post ileostomy and subtotal colectomy with a draining fistula in lower abdomen.. anastomosis. The area at 15 cm proximal to the stoma contained a benign-appearing, intrinsic moderate stenosis that was non-traversed. Impression: - Stricture in the area at 15 cm proximal to the stoma. - No specimens collected. Recommendation: - The patient will be observed post-procedure, until all discharge criteria are met. - Patient has a contact number available for emergencies. The signs and symptoms of potential delayed complications were discussed with the patient. Return to normal activities tomorrow. Written discharge instructions were provided to the patient. - NPO. - Use Humira (adalimumab) at as per the starter instructions subcutaneously in 2 weeks. - Perform a computed tomographic (CT scan) enterography at appointment to be scheduled. - Return to GI clinic as previously scheduled on 04/05/2017 at 10:30 AM. - Return to primary care physician. Shane Callejas MD Shane Callejas MD 03/31/2017 4:13:09 PM This report has been signed electronically. Number of Addenda: 0 Note Initiated On: 03/31/2017 3:13 PM Estimated Blood Loss: Estimated blood loss: none.
[2017-03-31] MEDS ORDERED: SODIUM CHLORIDE 0.9% INJ 10 ML SYR IV SCH (18:00)
== END 2017-03-31 16:30 | disposition home or self-care (01) ==
LOC: M OPP 13:29
PROVIDERS: ATTEND Internal Medicine Gastroenterology
DX: Z90.49 Acquired absence of other specified parts of digestive tract (principal); K52.3 Indeterminate colitis; K56.699 Other intestinal obstruction unspecified as to partial versus complete obstruction; Z79.899 Other long term (current) drug therapy; Z88.8 Allergy status to other drugs, medicaments and biological substances; Z88.2 Allergy status to sulfonamides

== ENCOUNTER → 2017-04-03 | Outpatient (REF) | payer MEDICARE ==
[2017-04-03 14:46] LABS: BASO % 0.5 % (0.0-1.0); EOS # 0.1 10^3/uL (0.0-0.50); EOS % 1.2 % (0.0-3.0); IMMATURE GRANULOCYTE % 1.2 % (0-0); LYMPH # 0.4 10^3/uL (1.5-4.5); LYMPH % 7.1 % (24.0-44.0); MEAN CORPUSCULAR HEMOGLOBIN 30.7 pg (27.0-33.0); MEAN CORPUSCULAR HGB CONC 30.3 g/dl (32.0-36.5); MEAN CORPUSCULAR VOLUME 101.5 fl (80.0-96.0); MONO # 0.5 10^3/uL (0.0-0.8); MONO % 9.1 % (0.0-5.0); NEUTROPHILS # 4.7 10^3/uL (1.8-7.7); NEUTROPHILS % 80.9 % (36.0-66.0); PLATELET COUNT, AUTOMATED 320 10^3/uL (150-450); RED CELL DISTRIBUTION WIDTH 18.2 % (11.5-14.5); WHITE BLOOD COUNT 5.8 10^3/uL (4.0-10.0)
[2017-04-03 14:58] LABS: ANION GAP 10 MEQ/L (8-16); BLOOD UREA NITROGEN 35 MG/DL (7-18); CALCIUM LEVEL 8.2 MG/DL (8.8-10.2); CARBON DIOXIDE LEVEL 25 MEQ/L (21-32); CHLORIDE LEVEL 108 MEQ/L (98-107); CREATININE FOR GFR 0.87 MG/DL (0.55-1.02); GLOMERULAR FILTRATION RATE > 60.0 (>39); GLUCOSE, FASTING 67 MG/DL (83-110); MAGNESIUM LEVEL 2.3 MG/DL (1.8-2.4); PHOSPHORUS LEVEL 4.7 MG/DL (2.5-4.9); SODIUM LEVEL 143 MEQ/L (136-145)
== END ==
LOC: M SHH 14:27 → M LAB REF 14:27
PROVIDERS: ATTEND Surgery
DX: K63.2 Fistula of intestine (principal); K50.814 Crohn's disease of both small and large intestine with abscess

== ENCOUNTER → 2017-04-10 | Outpatient (REF) | payer MEDICARE ==
[2017-04-10 14:02] LABS: BASO % 0.4 % (0.0-1.0); EOS # 0.1 10^3/uL (0.0-0.50); IMMATURE GRANULOCYTE % 3.2 % (0-0); LYMPH # 0.5 10^3/uL (1.5-4.5); LYMPH % 5.7 % (24.0-44.0); MEAN CORPUSCULAR HEMOGLOBIN 31.9 pg (27.0-33.0); MEAN CORPUSCULAR HGB CONC 31.2 g/dl (32.0-36.5); MEAN CORPUSCULAR VOLUME 102.2 fl (80.0-96.0); MONO # 0.6 10^3/uL (0.0-0.8); MONO % 7.2 % (0.0-5.0); NEUTROPHILS # 6.8 10^3/uL (1.8-7.7); NEUTROPHILS % 82.5 % (36.0-66.0); PLATELET COUNT, AUTOMATED 323 10^3/uL (150-450); RED CELL DISTRIBUTION WIDTH 17.5 % (11.5-14.5); WHITE BLOOD COUNT 8.2 10^3/uL (4.0-10.0)
[2017-04-10 14:40] LABS: CALCIUM LEVEL 7.7 MG/DL (8.8-10.2); CREATININE FOR GFR 0.98 MG/DL (0.55-1.02); GLOMERULAR FILTRATION RATE 59.7 (>39); MAGNESIUM LEVEL 2.3 MG/DL (1.8-2.4); PHOSPHORUS LEVEL 4.7 MG/DL (2.5-4.9); POTASSIUM SERUM 3.9 MEQ/L (3.5-5.1)
== END ==
LOC: M SHH 13:27
PROVIDERS: ATTEND Surgery
DX: K63.2 Fistula of intestine (principal); K50.814 Crohn's disease of both small and large intestine with abscess

== ENCOUNTER → 2017-04-10 | Outpatient (REF) | payer MEDICARE ==
[2017-04-10 14:37] LABS: HEPATITIS B SURFACE ANTIBODY NEGATIVE (POSITIVE)
== END ==
LOC: M SHH 13:49 → M LAB REF 13:49
PROVIDERS: ATTEND Internal Medicine Gastroenterology
DX: K50.814 Crohn's disease of both small and large intestine with abscess (principal); K63.2 Fistula of intestine

== ENCOUNTER → 2017-04-18 | Outpatient (REF) | payer MEDICARE ==
[2017-04-18 14:38] LABS: BASO % 0.6 % (0.0-1.0); EOS # 0.1 10^3/uL (0.0-0.50); EOS % 0.7 % (0.0-3.0); IMMATURE GRANULOCYTE % 2.5 % (0-0); LYMPH # 0.6 10^3/uL (1.5-4.5); LYMPH % 7.8 % (24.0-44.0); MEAN CORPUSCULAR HGB CONC 31.3 g/dl (32.0-36.5); MEAN CORPUSCULAR VOLUME 102.2 fl (80.0-96.0); MONO # 0.6 10^3/uL (0.0-0.8); MONO % 8.1 % (0.0-5.0); NEUTROPHILS # 5.7 10^3/uL (1.8-7.7); NEUTROPHILS % 80.3 % (36.0-66.0); PLATELET COUNT, AUTOMATED 361 10^3/uL (150-450); RED CELL DISTRIBUTION WIDTH 17.2 % (11.5-14.5); WHITE BLOOD COUNT 7.1 10^3/uL (4.0-10.0)
[2017-04-18 14:48] LABS: CREATININE FOR GFR 1.03 MG/DL (0.55-1.02); GLOMERULAR FILTRATION RATE 56.4 (>39)
[2017-04-18 14:49] LABS: CALCIUM LEVEL 7.8 MG/DL (8.8-10.2); MAGNESIUM LEVEL 2.3 MG/DL (1.8-2.4); PHOSPHORUS LEVEL 4.6 MG/DL (2.5-4.9)
== END ==
LOC: M SHH 14:33
PROVIDERS: ATTEND Surgery
DX: K50.814 Crohn's disease of both small and large intestine with abscess (principal); K63.2 Fistula of intestine; D50.9 Iron deficiency anemia, unspecified

== ENCOUNTER → 2017-04-18 | Outpatient (REF) | payer MEDICARE ==
[2017-04-18 18:18] LABS: FOLATE 17.9 NG/ML
[2017-04-18 18:38] LABS: PERCENT SATURATION 25.6 % (13.2-45.0)
== END ==
LOC: M LAB REF 17:00
PROVIDERS: ATTEND Internal Medicine Nephrology
DX: D50.9 Iron deficiency anemia, unspecified (principal)

== ENCOUNTER → 2017-04-25 | Outpatient (REF) | payer MEDICARE ==
[2017-04-25 14:04] LABS: MAGNESIUM LEVEL 2.4 MG/DL (1.8-2.4)
[2017-04-25 14:04] LABS: PHOSPHORUS LEVEL 5.1 MG/DL (2.5-4.9)
== END ==
LOC: M SHH 12:38
DX: K50.814 Crohn's disease of both small and large intestine with abscess (principal); K63.2 Fistula of intestine

== ENCOUNTER → 2017-04-25 | Outpatient (REF) | payer MEDICARE ==
[2017-04-25 13:09] LABS: BASO % 0.5 % (0.0-1.0); EOS # 0.1 10^3/uL (0.0-0.50); EOS % 1.5 % (0.0-3.0); HEMATOCRIT 29.3 % (36.0-47.0); HEMOGLOBIN 9.1 g/dl (12.0-16.0); IMMATURE GRANULOCYTE # 0.2 10^3/uL (0-0); IMMATURE GRANULOCYTE % 1.9 % (0-0); LYMPH # 0.9 10^3/uL (1.5-4.5); LYMPH % 11.2 % (24.0-44.0); MEAN CORPUSCULAR HEMOGLOBIN 31.6 pg (27.0-33.0); MEAN CORPUSCULAR HGB CONC 31.1 g/dl (32.0-36.5); MEAN CORPUSCULAR VOLUME 101.7 fl (80.0-96.0); MONO # 0.9 10^3/uL (0.0-0.8); MONO % 10.7 % (0.0-5.0); NEUTROPHILS # 5.9 10^3/uL (1.8-7.7); NEUTROPHILS % 74.2 % (36.0-66.0); PLATELET COUNT, AUTOMATED 293 10^3/uL (150-450); RED BLOOD COUNT 2.88 10^6/uL (4.00-5.40); RED CELL DISTRIBUTION WIDTH 16.8 % (11.5-14.5)
[2017-04-25 13:44] LABS: ALBUMIN 1.7 GM/DL (3.2-5.2); ALBUMIN/GLOBULIN RATIO 0.38 (1.00-1.93); ALKALINE PHOSPHATASE 281 U/L (45-117); ALT/SGPT 93 U/L (12-78); ANION GAP 11 MEQ/L (8-16); AST/SGOT 89 U/L (7-37); BLOOD UREA NITROGEN 42 MG/DL (7-18); CARBON DIOXIDE LEVEL 24 MEQ/L (21-32); CHLORIDE LEVEL 107 MEQ/L (98-107); CREATININE FOR GFR 0.99 MG/DL (0.55-1.02); GLUCOSE, FASTING 72 MG/DL (83-110); POTASSIUM SERUM 3.8 MEQ/L (3.5-5.1); SODIUM LEVEL 142 MEQ/L (136-145); TOTAL PROTEIN 6.2 GM/DL (6.4-8.2)
== END ==
LOC: M SHH 12:41
DX: K50.013 Crohn's disease of small intestine with fistula (principal)
CPT/HCPCS: 83735

== ENCOUNTER → 2017-05-01 | Outpatient (CLI) | payer MEDICARE ==
[~2017-05-01] MED LIST changes: -ACET500C PO; -ALLO100T PO; -AUGM875T28 PO; -CALC1CAP31 PO; -CALC600T34 PO; -CALC600T7 PO; -CALCI50TA PO; -CIPR-249 PO; -CORT10TA PO; -CYAN1000VL IM; -D32000TA PO; -FAMO40TA3 PO; -FE G325T PO; -FERR1TAB8 PO; -FLAG500T PO; -FOLI1TAB4 PO; +GASTROGRAFIN SOLUTION 30ML (Q9963) As Ordered; +GLUCAGON FOR INJ 1 MG VIAL (J1610) As Ordered; -HEPA100PFS IV; -HYDR-3291 PO; -IMOD2TAB16 PO; -INDA125TA PO; -IRON28TA PO; +ISOVUE-370 76% 100ML VIAL (Q9967) As Ordered; -MAG400TA PO; -MAGN1TAB25 PO; -MAGN30TA2 PO; -MAGN400T5 PO; -MECL-68 PO; -METAPKT PO; -METO-346 PO; -OXYC1TAB23 PO; -PRED10TA2 PO; -PRED20TA PO; -PRED20TAB PO; -PROT1TAB2 PO; -PROTPAK PO; -SALI0.9I2 IV; -TPNINJ3 IV; -TYLE325T5 PO; -VICO5TAB16 PO; -VITA-122 PO; -VITA1DRO IM; -VITA500046 PO; -VITA500T PO; -VITATAB22 PO; +VoLumen 0.1% SUSPENSION 450ML BOTTLE As Ordered; -ZOFR20TA PO; -[UNRECOGNIZED DRUG - CODE] IV
== END ==
LOC: M RAD 12:15
DX: K50.814 Crohn's disease of both small and large intestine with abscess (principal); K63.2 Fistula of intestine; K80.00 Calculus of gallbladder with acute cholecystitis without obstruction
CPT/HCPCS: Q9963

== ENCOUNTER → 2017-05-01 | Outpatient (REF) | payer MEDICARE ==
[2017-05-01 14:05] LABS: BASO % 0.3 % (0.0-1.0); EOS # 0.1 10^3/uL (0.0-0.50); EOS % 1.4 % (0.0-3.0); HEMATOCRIT 28.3 % (36.0-47.0); IMMATURE GRANULOCYTE # 0.1 10^3/uL (0-0); IMMATURE GRANULOCYTE % 1.2 % (0-0); LYMPH # 0.5 10^3/uL (1.5-4.5); LYMPH % 5.3 % (24.0-44.0); MEAN CORPUSCULAR HEMOGLOBIN 31.9 pg (27.0-33.0); MEAN CORPUSCULAR HGB CONC 31.8 g/dl (32.0-36.5); MEAN CORPUSCULAR VOLUME 100.4 fl (80.0-96.0); MONO # 0.8 10^3/uL (0.0-0.8); MONO % 7.9 % (0.0-5.0); NEUTROPHILS # 8.1 10^3/uL (1.8-7.7); NEUTROPHILS % 83.9 % (36.0-66.0); PLATELET COUNT, AUTOMATED 300 10^3/uL (150-450); RED BLOOD COUNT 2.82 10^6/uL (4.00-5.40); RED CELL DISTRIBUTION WIDTH 16.2 % (11.5-14.5); WHITE BLOOD COUNT 9.7 10^3/uL (4.0-10.0)
[2017-05-01 14:33] LABS: ANION GAP 10 MEQ/L (8-16); BLOOD UREA NITROGEN 38 MG/DL (7-18); CARBON DIOXIDE LEVEL 25 MEQ/L (21-32); CHLORIDE LEVEL 104 MEQ/L (98-107); CREATININE FOR GFR 1.02 MG/DL (0.55-1.02); GLUCOSE, FASTING 77 MG/DL (83-110); MAGNESIUM LEVEL 2.3 MG/DL (1.8-2.4); PHOSPHORUS LEVEL 4.7 MG/DL (2.5-4.9); PREALBUMIN 15.6 MG/DL (20.0-40.0); SODIUM LEVEL 139 MEQ/L (136-145)
== END ==
LOC: M SHH 13:35
DX: K50.814 Crohn's disease of both small and large intestine with abscess (principal); K63.2 Fistula of intestine

== ENCOUNTER → 2017-05-08 | Outpatient (REF) | payer MEDICARE ==
[2017-05-08 12:41] LABS: BASO % 0.3 % (0.0-1.0); EOS # 0.2 10^3/uL (0.0-0.50); EOS % 1.9 % (0.0-3.0); HEMATOCRIT 28.7 % (36.0-47.0); HEMOGLOBIN 9.1 g/dl (12.0-16.0); IMMATURE GRANULOCYTE # 0.2 10^3/uL (0-0); IMMATURE GRANULOCYTE % 1.9 % (0-0); LYMPH # 0.7 10^3/uL (1.5-4.5); LYMPH % 7.1 % (24.0-44.0); MEAN CORPUSCULAR HEMOGLOBIN 31.6 pg (27.0-33.0); MEAN CORPUSCULAR HGB CONC 31.7 g/dl (32.0-36.5); MEAN CORPUSCULAR VOLUME 99.7 fl (80.0-96.0); MONO % 10.9 % (0.0-5.0); NEUTROPHILS # 7.4 10^3/uL (1.8-7.7); NEUTROPHILS % 77.9 % (36.0-66.0); PLATELET COUNT, AUTOMATED 325 10^3/uL (150-450); RED BLOOD COUNT 2.88 10^6/uL (4.00-5.40); RED CELL DISTRIBUTION WIDTH 15.4 % (11.5-14.5); WHITE BLOOD COUNT 9.5 10^3/uL (4.0-10.0)
[2017-05-08 12:56] LABS: ALBUMIN 1.6 GM/DL (3.2-5.2); ALBUMIN/GLOBULIN RATIO 0.32 (1.00-1.93); ALKALINE PHOSPHATASE 244 U/L (45-117); ALT/SGPT 120 U/L (12-78); ANION GAP 9 MEQ/L (8-16); AST/SGOT 129 U/L (7-37); BILIRUBIN,TOTAL 5.3 MG/DL (0.2-1.0); BLOOD UREA NITROGEN 46 MG/DL (7-18); CALCIUM LEVEL 8.5 MG/DL (8.8-10.2); CARBON DIOXIDE LEVEL 28 MEQ/L (21-32); CHLORIDE LEVEL 102 MEQ/L (98-107); CREATININE FOR GFR 1.15 MG/DL (0.55-1.02); GLOMERULAR FILTRATION RATE 49.7 (>39); GLUCOSE, FASTING 96 MG/DL (83-110); MAGNESIUM LEVEL 2.4 MG/DL (1.8-2.4); PHOSPHORUS LEVEL 4.5 MG/DL (2.5-4.9); POTASSIUM SERUM 4.1 MEQ/L (3.5-5.1); PREALBUMIN 20.2 MG/DL (20.0-40.0); SODIUM LEVEL 139 MEQ/L (136-145); TOTAL PROTEIN 6.6 GM/DL (6.4-8.2)
== END ==
LOC: M SHH 12:07
DX: K50.814 Crohn's disease of both small and large intestine with abscess (principal); K63.2 Fistula of intestine
CPT/HCPCS: 83735

== ENCOUNTER 2017-05-11 19:35 | Inpatient (IN) | payer MEDICARE ==
[2017-05-11] MEDS: DILUENT IV (20:45)
[2017-05-11] MEDS: NS IV (20:45)
[2017-05-11] MEDS: IMIPENEM/CILASTATIN 500 MG in D5W MINI-BAG PLUS 100 ML IV (20:45)
[2017-05-11] MEDS: CALCIUM/VITAMIN D 500 MG TAB PO (21:00)
[2017-05-11 21:39] LABS: BASO # 0.1 10^3/uL (0.0-0.2); BASO % 0.5 % (0.0-1.0); EOS # 0.1 10^3/uL (0.0-0.50); EOS % 0.8 % (0.0-3.0); HEMATOCRIT 29.1 % (36.0-47.0); HEMOGLOBIN 9.1 g/dl (12.0-16.0); IMMATURE GRANULOCYTE # 0.4 10^3/uL (0-0); IMMATURE GRANULOCYTE % 2.5 % (0-0); LYMPH # 0.8 10^3/uL (1.5-4.5); LYMPH % 5.2 % (24.0-44.0); MEAN CORPUSCULAR HEMOGLOBIN 31.3 pg (27.0-33.0); MEAN CORPUSCULAR HGB CONC 31.3 g/dl (32.0-36.5); MONO # 1.3 10^3/uL (0.0-0.8); NEUTROPHILS # 11.8 10^3/uL (1.8-7.7); PLATELET COUNT, AUTOMATED 381 10^3/uL (150-450); RED BLOOD COUNT 2.91 10^6/uL (4.00-5.40); RED CELL DISTRIBUTION WIDTH 15.5 % (11.5-14.5); WHITE BLOOD COUNT 14.4 10^3/uL (4.0-10.0)
[2017-05-11 21:43] LABS: VENOUS HCO3 23.3 MEQ/L (23.0-27.0); VENOUS O2 SATURATION 81.8 % (60.0-80.0); VENOUS PARTIAL PRESSURE CO2 37.2 mmHg (38.0-50.0); VENOUS PARTIAL PRESSURE O2 47.4 mmHg (30.0-50.0); VENOUS PH 7.415 UNITS (7.330-7.430); VENOUS STANDARD HCO3 23.4 MEQ/L; VENOUS TOTAL CO2 24.5 MEQ/L (24.0-28.0)
[2017-05-11 21:50] LABS: INR 1.01; PROTHROMBIN TIME 13.4 SECONDS (12.4-14.5)
[2017-05-11 21:51] LABS: PARTIAL THROMBOPLASTIN TIME 34.4 SECONDS (26.8-37.9)
[2017-05-11 21:57] LABS: CONTROL LINE MONO RF C INT CTR LINE PRESENT; MONO REFLEX EBV COMP NEGATIVE (NEGATIVE)
[2017-05-11 22:03] LABS: LACTIC ACID SEPSIS PROTOCOL 1.2 MMOL/L (0.4-2.0)
[2017-05-11 22:05] LABS: ALBUMIN 1.6 GM/DL (3.2-5.2); ALBUMIN/GLOBULIN RATIO 0.26 (1.00-1.93); ALKALINE PHOSPHATASE 248 U/L (45-117); ALT/SGPT 118 U/L (12-78); AMYLASE 55 U/L (25-115); ANION GAP 8 MEQ/L (8-16); AST/SGOT 117 U/L (7-37); BILIRUBIN,DIRECT 4.8 MG/DL (0.0-0.2); BLOOD UREA NITROGEN 50 MG/DL (7-18); C REACTIVE PROTEIN QUANTITATIV 4.89 MG/DL (0.00-0.30); CALCIUM LEVEL 8.6 MG/DL (8.8-10.2); CARBON DIOXIDE LEVEL 25 MEQ/L (21-32); CHLORIDE LEVEL 105 MEQ/L (98-107); CPK CREATINE PHOSPHOKINASE 19 U/L (26-192); CREATININE FOR GFR 1.42 MG/DL (0.55-1.02); GLOMERULAR FILTRATION RATE 38.9 (>39); GLUCOSE, FASTING 117 MG/DL (83-110); MB/CK RELATIVE INDEX 5.26 (< OR =4); POTASSIUM SERUM 4.1 MEQ/L (3.5-5.1); SODIUM LEVEL 138 MEQ/L (136-145); TOTAL PROTEIN 7.8 GM/DL (6.4-8.2); TROPONIN I 0.02 NG/ML (< 0.10)
[2017-05-11] MEDS: CEFEPIME HCL 2 GM in APPROPRIATE DILUENT 1 EA IV (22:08)
[2017-05-11 22:29] LABS: APPEARANCE, URINE CLOUDY (CLEAR); BACTERIA, URINE AUTO 2+ (NEGATIVE); BILIRUBIN, URINE AUTO 1+ (NEGATIVE); BLOOD, URINE BLOOD 1+ (NEGATIVE); COLOR, URINE AMBER (YELLOW); GLUCOSE, URINE (UA) AUTO NEGATIVE (NEGATIVE); KETONE, URINE AUTO NEGATIVE (NEGATIVE); LEUKOCYTE ESTERASE, URINE AUTO 3+ (NEGATIVE); MUCUS, URINE SMALL (NEGATIVE); NITRITE, URINE AUTO NEGATIVE (NEGATIVE); PROTEIN, URINE AUTO 2+ mg/dL (NEGATIVE); RBC, URINE AUTO 14 /HPF (0-3); SPECIFIC GRAVITY URINE AUTO 1.018 (1.002-1.035); SQUAMOUS EPITHELIAL CELL UR AU 2 /HPF (0-6); WBC, URINE AUTO TNTC /HPF (0-3)
[2017-05-11] MEDS: SODIUM CHLORIDE 0.9% 1000 ML IV (22:30)
[2017-05-11] MEDS ORDERED: IPRATROPIUM 0.5MG/ALBUTEROL 2.5MG INH SOL UD 3ML (DUONEB)(J7620) NEB (22:30)
[2017-05-11 22:44] LABS: PHOSPHORUS LEVEL 4.7 MG/DL (2.5-4.9)
[2017-05-11] MEDS: GASTROGRAFIN SOLUTION 30ML PO (23:20)
[2017-05-11] MEDS: GASTROGRAFIN SOLUTION 30ML (Q9963) PO (23:40)
[2017-05-12] MEDS ORDERED: ISOVUE-370 76% 100ML VIAL (Q9967) As Ordered (00:38)
[2017-05-12] MEDS: ACETAMINOPHEN TAB 650MG DOSE (2X325MG) PO ×2 (02:12→22:12)
[2017-05-12] MEDS: D5W IV ×3 (02:36→23:50)
[2017-05-12] MEDS: MATE ADAPTER IV ×3 (02:36→23:50)
[2017-05-12] MEDS: ACYCLOVIR IV ×3 (02:36→23:50)
[2017-05-12] MEDS: HEPARIN SOD (PORCINE) 5000 UNITS/ML VIAL SC ×3 (05:22→22:12)
[2017-05-12 05:26] LABS: HEMATOCRIT 23.3 % (36.0-47.0); HEMOGLOBIN 7.3 g/dl (12.0-16.0); MEAN CORPUSCULAR HEMOGLOBIN 31.2 pg (27.0-33.0); MEAN CORPUSCULAR HGB CONC 31.3 g/dl (32.0-36.5); MEAN CORPUSCULAR VOLUME 99.6 fl (80.0-96.0); PLATELET COUNT, AUTOMATED 361 10^3/uL (150-450); RED BLOOD COUNT 2.34 10^6/uL (4.00-5.40); RED CELL DISTRIBUTION WIDTH 15.8 % (11.5-14.5); WHITE BLOOD COUNT 10.7 10^3/uL (4.0-10.0)
[2017-05-12 05:43] LABS: ALBUMIN 1.3 GM/DL (3.2-5.2); ALBUMIN/GLOBULIN RATIO 0.26 (1.00-1.93); ALKALINE PHOSPHATASE 189 U/L (45-117); ALT/SGPT 94 U/L (12-78); ANION GAP 8 MEQ/L (8-16); AST/SGOT 91 U/L (7-37); BILIRUBIN,TOTAL 4.6 MG/DL (0.2-1.0); BLOOD UREA NITROGEN 43 MG/DL (7-18); C REACTIVE PROTEIN QUANTITATIV 3.81 MG/DL (0.00-0.30); CALCIUM LEVEL 7.8 MG/DL (8.8-10.2); CARBON DIOXIDE LEVEL 23 MEQ/L (21-32); CHLORIDE LEVEL 107 MEQ/L (98-107); CREATININE FOR GFR 1.21 MG/DL (0.55-1.02); GLOMERULAR FILTRATION RATE 46.8 (>39); GLUCOSE, FASTING 78 MG/DL (83-110); POTASSIUM SERUM 3.9 MEQ/L (3.5-5.1); SODIUM LEVEL 138 MEQ/L (136-145); TOTAL PROTEIN 6.3 GM/DL (6.4-8.2)
[2017-05-12] MEDS: HYDROCORTISONE 10 MG TAB PO ×2 (09:14→18:33)
[2017-05-12] MEDS: ALLOPURINOL 100 MG TAB PO (09:14)
[2017-05-12] MEDS: CALCIUM/VITAMIN D 500 MG TAB PO ×2 (09:14→22:12)
[2017-05-12] MEDS: FERROUS SULFATE 325MG TAB PO (09:14)
[2017-05-12] MEDS: VITAMIN D 1,000 INTERNATIONAL UNITS TABLET PO (09:15)
[2017-05-12] MEDS: FAMOTIDINE 20 MG TAB PO (09:15)
[2017-05-12] MEDS: CALCITRIOL 0.25 MCG CAP (S0169) PO (09:15)
[2017-05-12] MEDS: CEFEPIME HCL 1 GM in APPROPRIATE DILUENT 1 EA IV ×2 (10:42→22:11)
[2017-05-12] MEDS ORDERED: NS 1,000 ML IV (11:28)
[2017-05-12] MEDS: KCL 20MEQ IN 0.45NS 1000ML 1,000 ML IV (13:06)
[2017-05-12 13:25] LABS: IMMEDIATE SPIN CROSSMATCH 1 2
[2017-05-12 21:08] LABS: BASO % 0.4 % (0.0-1.0); EOS # 0.1 10^3/uL (0.0-0.50); EOS % 0.7 % (0.0-3.0); HEMATOCRIT 30.3 % (36.0-47.0); IMMATURE GRANULOCYTE # 0.2 10^3/uL (0-0); IMMATURE GRANULOCYTE % 1.4 % (0-0); LYMPH # 0.8 10^3/uL (1.5-4.5); LYMPH % 7.7 % (24.0-44.0); MEAN CORPUSCULAR HEMOGLOBIN 30.8 pg (27.0-33.0); MEAN CORPUSCULAR HGB CONC 32.3 g/dl (32.0-36.5); MEAN CORPUSCULAR VOLUME 95.3 fl (80.0-96.0); MONO # 1.1 10^3/uL (0.0-0.8); MONO % 9.9 % (0.0-5.0); NEUTROPHILS # 8.5 10^3/uL (1.8-7.7); NEUTROPHILS % 79.9 % (36.0-66.0); PLATELET COUNT, AUTOMATED 326 10^3/uL (150-450); RED BLOOD COUNT 3.18 10^6/uL (4.00-5.40); RED CELL DISTRIBUTION WIDTH 17.7 % (11.5-14.5); WHITE BLOOD COUNT 10.6 10^3/uL (4.0-10.0)
[2017-05-12 21:13] LABS: HEMOGLOBIN 9.8 g/dl (12.0-16.0)
[2017-05-12 21:34] LABS: ALBUMIN 1.5 GM/DL (3.2-5.2); ALBUMIN/GLOBULIN RATIO 0.34 (1.00-1.93); ALKALINE PHOSPHATASE 207 U/L (45-117); ALT/SGPT 94 U/L (12-78); ANION GAP 10 MEQ/L (8-16); AST/SGOT 97 U/L (7-37); BILIRUBIN,TOTAL 5.9 MG/DL (0.2-1.0); BLOOD UREA NITROGEN 34 MG/DL (7-18); CALCIUM LEVEL 7.3 MG/DL (8.8-10.2); CARBON DIOXIDE LEVEL 22 MEQ/L (21-32); CHLORIDE LEVEL 108 MEQ/L (98-107); CREATININE FOR GFR 1.18 MG/DL (0.55-1.02); GLOMERULAR FILTRATION RATE 48.2 (>39); GLUCOSE, FASTING 67 MG/DL (83-110); POTASSIUM SERUM 4.2 MEQ/L (3.5-5.1); SODIUM LEVEL 140 MEQ/L (136-145); TOTAL PROTEIN 5.9 GM/DL (6.4-8.2)
[2017-05-12] MEDS: ONDANSETRON 4 MG TAB (S0181) PO (22:12)
[2017-05-12] MEDS ORDERED: SODIUM CHLORIDE 0.9% INJ 10 ML SYR IV (23:00)
[2017-05-13] MEDS: HEPARIN SOD (PORCINE) 5000 UNITS/ML VIAL SC ×3 (06:05→22:00)
[2017-05-13] MEDS: KCL 20MEQ IN 0.45NS 1000ML 1,000 ML IV ×2 (06:05→14:46)
[2017-05-13] MEDS: SODIUM CHLORIDE 0.9% INJ 10 ML SYR IV ×2 (06:06→18:14)
[2017-05-13 06:40] LABS: HEMATOCRIT 29.7 % (36.0-47.0); HEMOGLOBIN 9.4 g/dl (12.0-16.0); MEAN CORPUSCULAR HEMOGLOBIN 30.2 pg (27.0-33.0); MEAN CORPUSCULAR HGB CONC 31.6 g/dl (32.0-36.5); MEAN CORPUSCULAR VOLUME 95.5 fl (80.0-96.0); PLATELET COUNT, AUTOMATED 328 10^3/uL (150-450); RED BLOOD COUNT 3.11 10^6/uL (4.00-5.40); RED CELL DISTRIBUTION WIDTH 18.6 % (11.5-14.5); RETIC HEMOGLOBIN EQUIVALENT 33.7 pg (24-36); RETICULOCYTE # 124.7 10^9/L (17-77); WHITE BLOOD COUNT 8.9 10^3/uL (4.0-10.0)
[2017-05-13 06:51] LABS: ALBUMIN 1.5 GM/DL (3.2-5.2); ALBUMIN/GLOBULIN RATIO 0.34 (1.00-1.93); ALKALINE PHOSPHATASE 197 U/L (45-117); ALT/SGPT 90 U/L (12-78); ANION GAP 8 MEQ/L (8-16); AST/SGOT 102 U/L (7-37); BILIRUBIN,TOTAL 5.9 MG/DL (0.2-1.0); BLOOD UREA NITROGEN 31 MG/DL (7-18); C REACTIVE PROTEIN QUANTITATIV 6.33 MG/DL (0.00-0.30); CALCIUM LEVEL 7.6 MG/DL (8.8-10.2); CARBON DIOXIDE LEVEL 23 MEQ/L (21-32); CHLORIDE LEVEL 109 MEQ/L (98-107); CREATININE FOR GFR 1.21 MG/DL (0.55-1.02); GLOMERULAR FILTRATION RATE 46.8 (>39); GLUCOSE, FASTING 67 MG/DL (83-110); MAGNESIUM LEVEL 1.9 MG/DL (1.8-2.4); POTASSIUM SERUM 3.9 MEQ/L (3.5-5.1); SODIUM LEVEL 140 MEQ/L (136-145); TOTAL PROTEIN 5.9 GM/DL (6.4-8.2)
[2017-05-13] MEDS: HYDROCORTISONE 10 MG TAB PO ×2 (09:28→18:14)
[2017-05-13] MEDS: ALLOPURINOL 100 MG TAB PO (09:28)
[2017-05-13] MEDS: CALCIUM/VITAMIN D 500 MG TAB PO ×2 (09:28→21:59)
[2017-05-13] MEDS: CEFEPIME HCL 1 GM in APPROPRIATE DILUENT 1 EA IV ×2 (09:29→22:00)
[2017-05-13] MEDS: FERROUS SULFATE 325MG TAB PO (09:29)
[2017-05-13] MEDS: FAMOTIDINE 20 MG TAB PO (09:29)
[2017-05-13] MEDS: VITAMIN D 1,000 INTERNATIONAL UNITS TABLET PO (09:29)
[2017-05-13] MEDS: D5W IV (12:47)
[2017-05-13] MEDS: ACYCLOVIR IV (12:47)
[2017-05-13] MEDS: MATE ADAPTER IV (12:47)
[2017-05-14 00:06] LABS: HSV-1 DNA Negative (Negative); HSV-2 DNA Negative (Negative); ZINC PLASMA 62 ug/dL (56-134)
[2017-05-14 00:06] LABS: COPPER PLASMA 153 ug/dL (72-166)
[2017-05-14 00:06] LABS: EBV VIRAL CAPSID AG IgM <36.0 U/mL (0.0-35.9)
[2017-05-14] MEDS: MATE ADAPTER IV ×3 (00:13→23:42)
[2017-05-14] MEDS: D5W IV ×3 (00:13→23:42)
[2017-05-14] MEDS: ACYCLOVIR IV ×3 (00:13→23:42)
[2017-05-14] MEDS: KCL 20MEQ IN 0.45NS 1000ML 1,000 ML IV ×3 (04:48→23:43)
[2017-05-14] MEDS: SODIUM CHLORIDE 0.9% INJ 10 ML SYR IV ×2 (06:05→17:44)
[2017-05-14] MEDS: HEPARIN SOD (PORCINE) 5000 UNITS/ML VIAL SC ×3 (06:06→21:11)
[2017-05-14 06:25] LABS: HEMATOCRIT 28.3 % (36.0-47.0); HEMOGLOBIN 9.1 g/dl (12.0-16.0); MEAN CORPUSCULAR HEMOGLOBIN 31.1 pg (27.0-33.0); MEAN CORPUSCULAR HGB CONC 32.2 g/dl (32.0-36.5); MEAN CORPUSCULAR VOLUME 96.6 fl (80.0-96.0); PLATELET COUNT, AUTOMATED 329 10^3/uL (150-450); RED BLOOD COUNT 2.93 10^6/uL (4.00-5.40); RED CELL DISTRIBUTION WIDTH 18.5 % (11.5-14.5); WHITE BLOOD COUNT 8.3 10^3/uL (4.0-10.0)
[2017-05-14 06:49] LABS: AMMONIA < 10 uMOL/L (<32)
[2017-05-14 06:52] LABS: ALBUMIN 1.4 GM/DL (3.2-5.2); ALBUMIN/GLOBULIN RATIO 0.32 (1.00-1.93); ALKALINE PHOSPHATASE 184 U/L (45-117); ALT/SGPT 90 U/L (12-78); ANION GAP 8 MEQ/L (8-16); AST/SGOT 108 U/L (7-37); BILIRUBIN,TOTAL 5.2 MG/DL (0.2-1.0); BLOOD UREA NITROGEN 27 MG/DL (7-18); C REACTIVE PROTEIN QUANTITATIV 6.97 MG/DL (0.00-0.30); CALCIUM LEVEL 7.8 MG/DL (8.8-10.2); CARBON DIOXIDE LEVEL 22 MEQ/L (21-32); CHLORIDE LEVEL 110 MEQ/L (98-107); CREATININE FOR GFR 1.17 MG/DL (0.55-1.02); GLOMERULAR FILTRATION RATE 48.7 (>39); GLUCOSE, FASTING 68 MG/DL (83-110); SODIUM LEVEL 140 MEQ/L (136-145); TOTAL PROTEIN 5.8 GM/DL (6.4-8.2)
[2017-05-14 07:03] LABS: ALBUMIN 1.4 GM/DL (3.2-5.2); ALBUMIN/GLOBULIN RATIO 0.33 (1.00-1.93); ALKALINE PHOSPHATASE 192 U/L (45-117); ALT/SGPT 92 U/L (12-78); AST/SGOT 111 U/L (7-37); BILIRUBIN,DIRECT 4.5 MG/DL (0.0-0.2); BILIRUBIN,TOTAL 5.4 MG/DL (0.2-1.0); IMMUNOGLOBULIN G 1210 MG/DL (681-1648); IMMUNOGLOBULIN M 193 MG/DL (40-230); TOTAL PROTEIN 5.7 GM/DL (6.4-8.2)
[2017-05-14] MEDS: FERROUS SULFATE 325MG TAB PO (08:30)
[2017-05-14] MEDS: CALCIUM/VITAMIN D 500 MG TAB PO ×2 (08:30→21:10)
[2017-05-14] MEDS: ALLOPURINOL 100 MG TAB PO (08:30)
[2017-05-14] MEDS: HYDROCORTISONE 10 MG TAB PO ×2 (08:31→17:44)
[2017-05-14] MEDS: FAMOTIDINE 20 MG TAB PO (08:31)
[2017-05-14] MEDS: VITAMIN D 1,000 INTERNATIONAL UNITS TABLET PO (08:31)
[2017-05-14] MEDS: CEFEPIME HCL 1 GM in APPROPRIATE DILUENT 1 EA IV ×2 (10:13→21:11)
[2017-05-14] MEDS: ACETAMINOPHEN TAB 650MG DOSE (2X325MG) PO (21:10)
[2017-05-15] MEDS: SODIUM CHLORIDE 0.9% INJ 10 ML SYR IV ×2 (06:25→15:21)
[2017-05-15] MEDS: HEPARIN SOD (PORCINE) 5000 UNITS/ML VIAL SC ×3 (06:25→22:21)
[2017-05-15 07:20] LABS: HEMATOCRIT 28.4 % (36.0-47.0); MEAN CORPUSCULAR HEMOGLOBIN 30.7 pg (27.0-33.0); MEAN CORPUSCULAR HGB CONC 31.7 g/dl (32.0-36.5); MEAN CORPUSCULAR VOLUME 96.9 fl (80.0-96.0); PLATELET COUNT, AUTOMATED 336 10^3/uL (150-450); RED BLOOD COUNT 2.93 10^6/uL (4.00-5.40); RED CELL DISTRIBUTION WIDTH 18.1 % (11.5-14.5); WHITE BLOOD COUNT 9.4 10^3/uL (4.0-10.0)
[2017-05-15 07:38] LABS: ALBUMIN 1.4 GM/DL (3.2-5.2); ALBUMIN/GLOBULIN RATIO 0.33 (1.00-1.93); ALKALINE PHOSPHATASE 182 U/L (45-117); ALT/SGPT 91 U/L (12-78); ANION GAP 9 MEQ/L (8-16); AST/SGOT 105 U/L (7-37); BILIRUBIN,DIRECT 4.3 MG/DL (0.0-0.2); BLOOD UREA NITROGEN 25 MG/DL (7-18); C REACTIVE PROTEIN QUANTITATIV 6.62 MG/DL (0.00-0.30); CALCIUM LEVEL 7.8 MG/DL (8.8-10.2); CARBON DIOXIDE LEVEL 23 MEQ/L (21-32); CHLORIDE LEVEL 110 MEQ/L (98-107); CREATININE FOR GFR 1.09 MG/DL (0.55-1.02); GLOMERULAR FILTRATION RATE 52.8 (>39); GLUCOSE, FASTING 68 MG/DL (83-110); POTASSIUM SERUM 3.9 MEQ/L (3.5-5.1); SODIUM LEVEL 142 MEQ/L (136-145); TOTAL PROTEIN 5.7 GM/DL (6.4-8.2)
[2017-05-15] MEDS: HYDROCORTISONE 10 MG TAB PO ×2 (08:15→17:02)
[2017-05-15] MEDS: FERROUS SULFATE 325MG TAB PO (08:15)
[2017-05-15] MEDS: VITAMIN D 1,000 INTERNATIONAL UNITS TABLET PO (08:16)
[2017-05-15] MEDS: CALCIUM/VITAMIN D 500 MG TAB PO ×2 (08:16→20:14)
[2017-05-15] MEDS: CEFEPIME HCL 1 GM in APPROPRIATE DILUENT 1 EA IV ×2 (10:38→22:21)
[2017-05-15] MEDS: MATE ADAPTER IV ×2 (11:57→23:10)
[2017-05-15] MEDS: D5W IV ×2 (11:57→23:10)
[2017-05-15] MEDS: ACYCLOVIR IV ×2 (11:57→23:10)
[2017-05-15] MEDS: KCL 20MEQ IN 0.45NS 1000ML 1,000 ML IV (14:30)
[2017-05-15] MEDS: ACETAMINOPHEN TAB 650MG DOSE (2X325MG) PO (14:38)
[2017-05-15] MEDS ORDERED: DIAPER RELIEF PASTE (DESITIN) 60GM TOP (15:15)
[2017-05-15] MEDS ORDERED: MINERAL OIL 473 ML BTL TOP (15:15)
[2017-05-15] MEDS: DIAPER RELIEF PASTE (DESITIN) 60GM TOP (20:13)
[2017-05-15 20:42] LABS: THYROGLOBULIN ANTIBODY < 15.0 U/ML (<60.0)
[2017-05-15 20:46] LABS: FREE T4 1.79 NG/DL (0.76-1.46)
[2017-05-16] MEDS: KCL 20MEQ IN 0.45NS 1000ML 1,000 ML IV ×2 (03:20→14:00)
[2017-05-16] MEDS: SODIUM CHLORIDE 0.9% INJ 10 ML SYR IV ×2 (06:15→17:45)
[2017-05-16] MEDS: HEPARIN SOD (PORCINE) 5000 UNITS/ML VIAL SC ×2 (06:15→13:30)
[2017-05-16 06:33] LABS: HEMATOCRIT 28.2 % (36.0-47.0); HEMOGLOBIN 8.9 g/dl (12.0-16.0); MEAN CORPUSCULAR HEMOGLOBIN 30.8 pg (27.0-33.0); MEAN CORPUSCULAR HGB CONC 31.6 g/dl (32.0-36.5); MEAN CORPUSCULAR VOLUME 97.6 fl (80.0-96.0); PLATELET COUNT, AUTOMATED 309 10^3/uL (150-450); RED BLOOD COUNT 2.89 10^6/uL (4.00-5.40); RED CELL DISTRIBUTION WIDTH 17.9 % (11.5-14.5); WHITE BLOOD COUNT 8.8 10^3/uL (4.0-10.0)
[2017-05-16 07:03] LABS: ALBUMIN 1.5 GM/DL (3.2-5.2); ALBUMIN/GLOBULIN RATIO 0.33 (1.00-1.93); ALKALINE PHOSPHATASE 189 U/L (45-117); ALT/SGPT 94 U/L (12-78); ANION GAP 6 MEQ/L (8-16); AST/SGOT 115 U/L (7-37); BILIRUBIN,TOTAL 4.8 MG/DL (0.2-1.0); BLOOD UREA NITROGEN 22 MG/DL (7-18); C REACTIVE PROTEIN QUANTITATIV 6.51 MG/DL (0.00-0.30); CALCIUM LEVEL 7.7 MG/DL (8.8-10.2); CARBON DIOXIDE LEVEL 24 MEQ/L (21-32); CHLORIDE LEVEL 110 MEQ/L (98-107); CREATININE FOR GFR 1.02 MG/DL (0.55-1.02); GLUCOSE, FASTING 73 MG/DL (70-100); POTASSIUM SERUM 4.2 MEQ/L (3.5-5.1); SODIUM LEVEL 140 MEQ/L (136-145)
[2017-05-16] MEDS: CALCITRIOL 0.25 MCG CAP (S0169) PO (08:34)
[2017-05-16] MEDS: FERROUS SULFATE 325MG TAB PO (08:34)
[2017-05-16] MEDS: VITAMIN D 1,000 INTERNATIONAL UNITS TABLET PO (08:34)
[2017-05-16] MEDS: CALCIUM/VITAMIN D 500 MG TAB PO ×2 (08:34→21:00)
[2017-05-16] MEDS: HYDROCORTISONE 10 MG TAB PO ×2 (08:34→18:02)
[2017-05-16] MEDS: DIAPER RELIEF PASTE (DESITIN) 60GM TOP ×2 (08:35→21:31)
[2017-05-16] MEDS: CEFEPIME HCL 1 GM in APPROPRIATE DILUENT 1 EA IV (09:27)
[2017-05-16] MEDS: MATE ADAPTER IV (11:32)
[2017-05-16] MEDS: ACYCLOVIR IV (11:32)
[2017-05-16] MEDS: D5W IV (11:32)
[2017-05-16] MEDS ORDERED: LIDOCAINE 1% MDV 20ML VIAL As Ordered (13:42)
[2017-05-16] MEDS: ONDANSETRON 4 MG TAB (S0181) PO (14:51)
[2017-05-16 17:47] LABS: HEMATOCRIT 28.6 % (36.0-47.0); MEAN CORPUSCULAR HEMOGLOBIN 30.8 pg (27.0-33.0); MEAN CORPUSCULAR HGB CONC 31.5 g/dl (32.0-36.5); MEAN CORPUSCULAR VOLUME 97.9 fl (80.0-96.0); PLATELET COUNT, AUTOMATED 329 10^3/uL (150-450); RED BLOOD COUNT 2.92 10^6/uL (4.00-5.40); RED CELL DISTRIBUTION WIDTH 17.8 % (11.5-14.5); WHITE BLOOD COUNT 10.6 10^3/uL (4.0-10.0)
[2017-05-16] MEDS: traMADol 50 MG TAB PO (17:59)
[2017-05-16 18:03] LABS: PROTHROMBIN TIME 14.4 SECONDS (12.4-14.5)
[2017-05-16 18:04] LABS: PARTIAL THROMBOPLASTIN TIME 38.1 SECONDS (26.8-37.9)
[2017-05-16] MEDS: ACETAMINOPHEN TAB 650MG DOSE (2X325MG) PO (21:32)
[2017-05-17 00:06] LABS: ANCA-ATYPICAL <1:20 titer (Neg:<1:20); ANTI-MITOCHONDRIAL ANTIBODY 7.3 Units (0.0-20.0); CYTOPLASMIC NEUTROP AB ANCA-C <1:20 titer (Neg:<1:20); PERINUCLEAR AB ANCA-P <1:20 titer (Neg:<1:20)
[2017-05-17] MEDS: KCL 20MEQ IN 0.45NS 1000ML 1,000 ML IV (02:10)
[2017-05-17] MEDS: SODIUM CHLORIDE 0.9% INJ 10 ML SYR IV ×2 (06:14→17:46)
[2017-05-17 06:32] LABS: BASO % 0.3 % (0.0-1.0); EOS # 0.1 10^3/uL (0.0-0.50); EOS % 0.9 % (0.0-3.0); HEMOGLOBIN 8.6 g/dl (12.0-16.0); IMMATURE GRANULOCYTE # 0.1 10^3/uL (0-0); IMMATURE GRANULOCYTE % 0.8 % (0-0); LYMPH # 0.8 10^3/uL (1.5-4.5); LYMPH % 9.4 % (24.0-44.0); MEAN CORPUSCULAR HGB CONC 31.9 g/dl (32.0-36.5); MEAN CORPUSCULAR VOLUME 97.5 fl (80.0-96.0); MONO # 0.8 10^3/uL (0.0-0.8); MONO % 8.4 % (0.0-5.0); NEUTROPHILS # 7.2 10^3/uL (1.8-7.7); NEUTROPHILS % 80.2 % (36.0-66.0); PLATELET COUNT, AUTOMATED 314 10^3/uL (150-450); RED BLOOD COUNT 2.77 10^6/uL (4.00-5.40); RED CELL DISTRIBUTION WIDTH 17.9 % (11.5-14.5); WHITE BLOOD COUNT 8.9 10^3/uL (4.0-10.0)
[2017-05-17 06:56] LABS: ALBUMIN 1.4 GM/DL (3.2-5.2); ALKALINE PHOSPHATASE 183 U/L (45-117); ALT/SGPT 95 U/L (12-78); ANION GAP 9 MEQ/L (8-16); AST/SGOT 112 U/L (7-37); BLOOD UREA NITROGEN 20 MG/DL (7-18); CALCIUM LEVEL 7.6 MG/DL (8.8-10.2); CARBON DIOXIDE LEVEL 24 MEQ/L (21-32); CHLORIDE LEVEL 108 MEQ/L (98-107); CREATININE FOR GFR 1.07 MG/DL (0.55-1.02); GLUCOSE, FASTING 70 MG/DL (70-100); SODIUM LEVEL 141 MEQ/L (136-145)
[2017-05-17] MEDS: CALCITRIOL 0.25 MCG CAP (S0169) PO (08:47)
[2017-05-17] MEDS: CALCIUM/VITAMIN D 500 MG TAB PO (08:48)
[2017-05-17] MEDS: HYDROCORTISONE 10 MG TAB PO ×2 (08:48→17:46)
[2017-05-17] MEDS: DIAPER RELIEF PASTE (DESITIN) 60GM TOP (08:48)
[2017-05-17] MEDS: FERROUS SULFATE 325MG TAB PO (08:48)
[2017-05-17] MEDS: VITAMIN D 1,000 INTERNATIONAL UNITS TABLET PO (08:48)
[2017-05-17 10:34] LABS: BASO % 0.3 % (0.0-1.0); EOS # 0.1 10^3/uL (0.0-0.50); EOS % 0.7 % (0.0-3.0); HEMATOCRIT 30.2 % (36.0-47.0); HEMOGLOBIN 9.6 g/dl (12.0-16.0); IMMATURE GRANULOCYTE # 0.1 10^3/uL (0-0); IMMATURE GRANULOCYTE % 1.1 % (0-0); LYMPH # 0.7 10^3/uL (1.5-4.5); MEAN CORPUSCULAR HEMOGLOBIN 31.1 pg (27.0-33.0); MEAN CORPUSCULAR HGB CONC 31.8 g/dl (32.0-36.5); MEAN CORPUSCULAR VOLUME 97.7 fl (80.0-96.0); MONO # 0.8 10^3/uL (0.0-0.8); MONO % 8.4 % (0.0-5.0); NEUTROPHILS # 8.3 10^3/uL (1.8-7.7); NEUTROPHILS % 82.5 % (36.0-66.0); PLATELET COUNT, AUTOMATED 359 10^3/uL (150-450); RED BLOOD COUNT 3.09 10^6/uL (4.00-5.40); RED CELL DISTRIBUTION WIDTH 17.9 % (11.5-14.5)
[2017-05-17 11:38] LABS: TYPE AND SCREEN 1 1
[2017-05-17 12:31] LABS: TYPE AND SCREEN 1
[2017-05-17 15:15] LABS: TYPE AND SCREEN 1
[2017-05-18 00:06] LABS: CMV QUANT DNA PCR (PLASMA) Negative (Negative); CYTOMEGALOVIRUS IgM ANTIBODY <30.0 AU/mL (0.0-29.9)
[2017-05-19 00:10] LABS: ANA (HEP2) Negative (.)
== END 2017-05-17 19:12 | disposition home or self-care (01) | DRG 947 ==
LOC: M ED 19:35 → M ED INP 22:22 → M PCU 05-12 01:42
PROVIDERS: Hospitalist
PROC: 30233N1 Transfusion of Nonautologous Red Blood Cells into Peripheral Vein, Percutaneous Approach (ICD-10-PCS; 2017-05-12)
PROC: 0FB23ZX Excision of Left Lobe Liver, Percutaneous Approach, Diagnostic (ICD-10-PCS; principal; 2017-05-16)
DX: R74.0 Nonspecific elevation of levels of transaminase and lactic acid dehydrogenase [LDH] (principal); E43 Unspecified severe protein-calorie malnutrition; R17 Unspecified jaundice; N17.9 Acute kidney failure, unspecified; E27.40 Unspecified adrenocortical insufficiency; D62 Acute posthemorrhagic anemia; N39.0 Urinary tract infection, site not specified; K91.840 Postprocedural hemorrhage of a digestive system organ or structure following a digestive system procedure; K50.913 Crohn's disease, unspecified, with fistula; Z79.899 Other long term (current) drug therapy; Z79.52 Long term (current) use of systemic steroids; N18.9 Chronic kidney disease, unspecified; Z88.2 Allergy status to sulfonamides; Z88.8 Allergy status to other drugs, medicaments and biological substances; Z93.2 Ileostomy status; B96.1 Klebsiella pneumoniae [K. pneumoniae] as the cause of diseases classified elsewhere; R82.71 Bacteriuria

== ENCOUNTER → 2017-05-11 | Outpatient (REF) | payer MEDICARE ==
[2017-05-11 13:24] LABS: INR 1.08; PROTHROMBIN TIME 14.2 SECONDS (12.4-14.5)
[2017-05-11 13:25] LABS: PARTIAL THROMBOPLASTIN TIME 38.6 SECONDS (26.8-37.9)
[2017-05-11 13:28] LABS: BASO # 0.1 10^3/uL (0.0-0.2); BASO % 0.4 % (0.0-1.0); EOS # 0.1 10^3/uL (0.0-0.50); HEMATOCRIT 30.4 % (36.0-47.0); HEMOGLOBIN 9.6 g/dl (12.0-16.0); IMMATURE GRANULOCYTE # 0.5 10^3/uL (0-0); LYMPH # 0.8 10^3/uL (1.5-4.5); MEAN CORPUSCULAR HEMOGLOBIN 31.7 pg (27.0-33.0); MEAN CORPUSCULAR HGB CONC 31.6 g/dl (32.0-36.5); MEAN CORPUSCULAR VOLUME 100.3 fl (80.0-96.0); MONO # 0.9 10^3/uL (0.0-0.8); MONO % 6.9 % (0.0-5.0); NEUTROPHILS # 10.3 10^3/uL (1.8-7.7); NEUTROPHILS % 81.7 % (36.0-66.0); PLATELET COUNT, AUTOMATED 429 10^3/uL (150-450); RED BLOOD COUNT 3.03 10^6/uL (4.00-5.40); RED CELL DISTRIBUTION WIDTH 15.7 % (11.5-14.5); RETIC HEMOGLOBIN EQUIVALENT 31.5 pg (24-36); RETICULOCYTE # 159.7 10^9/L (17-77); RETICULOCYTE % 5.3 % (0.5-1.5); WHITE BLOOD COUNT 12.6 10^3/uL (4.0-10.0)
[2017-05-11 13:37] LABS: REASON FOR REVIEW COMPREHENSIVE REVIEW; SLIDE REVIEW Report; SOURCE PERIPHERAL SMEAR
[2017-05-11 13:52] LABS: ALBUMIN 1.9 GM/DL (3.2-5.2); ALBUMIN/GLOBULIN RATIO 0.35 (1.00-1.93); ALKALINE PHOSPHATASE 287 U/L (45-117); ALT/SGPT 132 U/L (12-78); ANION GAP 10 MEQ/L (8-16); AST/SGOT 135 U/L (7-37); BILIRUBIN,TOTAL 6.4 MG/DL (0.2-1.0); BLOOD UREA NITROGEN 44 MG/DL (7-18); CALCIUM LEVEL 8.6 MG/DL (8.8-10.2); CARBON DIOXIDE LEVEL 26 MEQ/L (21-32); CHLORIDE LEVEL 101 MEQ/L (98-107); CREATININE FOR GFR 1.26 MG/DL (0.55-1.02); GLOMERULAR FILTRATION RATE 44.7 (>39); GLUCOSE, FASTING 93 MG/DL (83-110); LDH LACTATE DEHYDROGENASE 198 U/L (84-246); POTASSIUM SERUM 4.7 MEQ/L (3.5-5.1); SODIUM LEVEL 137 MEQ/L (136-145); TOTAL PROTEIN 7.3 GM/DL (6.4-8.2)
[2017-05-12 14:16] LABS: HAPTOGLOBIN 220 mg/dL (34-200)
== END ==
LOC: M LABDRAW1 12:50
DX: D64.9 Anemia, unspecified (principal); R17 Unspecified jaundice
CPT/HCPCS: 82746

== ENCOUNTER → 2017-05-11 | Outpatient (REF) | payer MEDICARE | LOC: M SFHCADAM 09:55 | DX: D64.9 Anemia, unspecified (principal); R17 Unspecified jaundice ==

== ENCOUNTER → 2017-05-22 | Outpatient (REF) | payer MEDICARE ==
[2017-05-22 20:48] LABS: ALBUMIN 2.1 GM/DL (3.2-5.2); ALBUMIN/GLOBULIN RATIO 0.41 (1.00-1.93); ALKALINE PHOSPHATASE 217 U/L (45-117); ALT/SGPT 97 U/L (12-78); AST/SGOT 89 U/L (7-37); BILIRUBIN,DIRECT 5.2 MG/DL (0.0-0.2); BILIRUBIN,TOTAL 6.6 MG/DL (0.2-1.0); TOTAL PROTEIN 7.2 GM/DL (6.4-8.2)
== END ==
LOC: M SHH 16:49
DX: K50.814 Crohn's disease of both small and large intestine with abscess (principal)

== ENCOUNTER → 2017-05-22 | Outpatient (REF) | payer MEDICARE ==
[2017-05-22 18:56] LABS: BASO % 0.3 % (0.0-1.0); EOS # 0.1 10^3/uL (0.0-0.50); EOS % 0.5 % (0.0-3.0); HEMATOCRIT 32.2 % (36.0-47.0); HEMOGLOBIN 10.2 g/dl (12.0-16.0); IMMATURE GRANULOCYTE # 0.1 10^3/uL (0-0); IMMATURE GRANULOCYTE % 0.6 % (0-0); LYMPH # 0.8 10^3/uL (1.5-4.5); LYMPH % 6.3 % (24.0-44.0); MEAN CORPUSCULAR HEMOGLOBIN 31.9 pg (27.0-33.0); MEAN CORPUSCULAR HGB CONC 31.7 g/dl (32.0-36.5); MEAN CORPUSCULAR VOLUME 100.6 fl (80.0-96.0); MONO # 1.2 10^3/uL (0.0-0.8); MONO % 9.4 % (0.0-5.0); NEUTROPHILS # 10.9 10^3/uL (1.8-7.7); NEUTROPHILS % 82.9 % (36.0-66.0); PLATELET COUNT, AUTOMATED 348 10^3/uL (150-450); RED CELL DISTRIBUTION WIDTH 18.8 % (11.5-14.5); WHITE BLOOD COUNT 13.2 10^3/uL (4.0-10.0)
[2017-05-22 19:17] LABS: ANION GAP 10 MEQ/L (8-16); BLOOD UREA NITROGEN 33 MG/DL (7-18); CALCIUM LEVEL 8.3 MG/DL (8.8-10.2); CARBON DIOXIDE LEVEL 28 MEQ/L (21-32); CHLORIDE LEVEL 102 MEQ/L (98-107); CREATININE FOR GFR 1.22 MG/DL (0.55-1.30); GLOMERULAR FILTRATION RATE 46.4 (>39); GLUCOSE, FASTING 113 MG/DL (70-100); MAGNESIUM LEVEL 2.5 MG/DL (1.8-2.4); PHOSPHORUS LEVEL 4.4 MG/DL (2.5-4.9); POTASSIUM SERUM 4.4 MEQ/L (3.5-5.1); SODIUM LEVEL 140 MEQ/L (136-145)
[2017-05-22 19:28] LABS: PREALBUMIN 13.4 MG/DL (20.0-40.0)
== END ==
LOC: M SHH 16:48
DX: K50.814 Crohn's disease of both small and large intestine with abscess (principal); K63.2 Fistula of intestine; Z79.899 Other long term (current) drug therapy
CPT/HCPCS: 83735

== ENCOUNTER → 2017-05-29 | Outpatient (REF) | payer MEDICARE ==
[2017-05-29 14:05] LABS: HEMOGLOBIN 9.6 g/dl (12.0-16.0); MEAN CORPUSCULAR HEMOGLOBIN 31.6 pg (27.0-33.0); MEAN CORPUSCULAR VOLUME 98.7 fl (80.0-96.0); PLATELET COUNT, AUTOMATED 408 10^3/uL (150-450); RED BLOOD COUNT 3.04 10^6/uL (4.00-5.40); RED CELL DISTRIBUTION WIDTH 17.6 % (11.5-14.5); WHITE BLOOD COUNT 9.9 10^3/uL (4.0-10.0)
[2017-05-29 14:12] LABS: ALBUMIN 1.9 GM/DL (3.2-5.2); ALBUMIN/GLOBULIN RATIO 0.37 (1.00-1.93); ALKALINE PHOSPHATASE 195 U/L (45-117); ALT/SGPT 66 U/L (12-78); ANION GAP 10 MEQ/L (8-16); AST/SGOT 61 U/L (7-37); BILIRUBIN,TOTAL 4.7 MG/DL (0.2-1.0); BLOOD UREA NITROGEN 28 MG/DL (7-18); CALCIUM LEVEL 8.4 MG/DL (8.8-10.2); CARBON DIOXIDE LEVEL 27 MEQ/L (21-32); CHLORIDE LEVEL 99 MEQ/L (98-107); CREATININE FOR GFR 1.19 MG/DL (0.55-1.30); GLOMERULAR FILTRATION RATE 47.7 (>39); GLUCOSE, FASTING 85 MG/DL (70-100); POTASSIUM SERUM 3.9 MEQ/L (3.5-5.1); SODIUM LEVEL 136 MEQ/L (136-145)
== END ==
LOC: M SHH 13:25
DX: D51.0 Vitamin B12 deficiency anemia due to intrinsic factor deficiency (principal); R17 Unspecified jaundice

== ENCOUNTER → 2017-05-29 | Outpatient (REF) | payer MEDICARE ==
[2017-05-29 13:56] LABS: BASO % 0.3 % (0.0-1.0); EOS # 0.2 10^3/uL (0.0-0.50); EOS % 1.6 % (0.0-3.0); HEMATOCRIT 30.1 % (36.0-47.0); HEMOGLOBIN 9.5 g/dl (12.0-16.0); IMMATURE GRANULOCYTE # 0.1 10^3/uL (0-0); IMMATURE GRANULOCYTE % 0.8 % (0-0); LYMPH # 0.7 10^3/uL (1.5-4.5); LYMPH % 6.5 % (24.0-44.0); MEAN CORPUSCULAR HGB CONC 31.6 g/dl (32.0-36.5); MEAN CORPUSCULAR VOLUME 98.4 fl (80.0-96.0); MONO # 0.9 10^3/uL (0.0-0.8); MONO % 8.6 % (0.0-5.0); NEUTROPHILS # 8.5 10^3/uL (1.8-7.7); NEUTROPHILS % 82.2 % (36.0-66.0); PLATELET COUNT, AUTOMATED 416 10^3/uL (150-450); RED BLOOD COUNT 3.06 10^6/uL (4.00-5.40); RED CELL DISTRIBUTION WIDTH 17.7 % (11.5-14.5); WHITE BLOOD COUNT 10.3 10^3/uL (4.0-10.0)
[2017-05-29 14:06] LABS: ANION GAP 12 MEQ/L (8-16); BLOOD UREA NITROGEN 28 MG/DL (7-18); CALCIUM LEVEL 8.3 MG/DL (8.8-10.2); CARBON DIOXIDE LEVEL 27 MEQ/L (21-32); CHLORIDE LEVEL 98 MEQ/L (98-107); GLOMERULAR FILTRATION RATE 47.3 (>39); GLUCOSE, FASTING 87 MG/DL (70-100); MAGNESIUM LEVEL 3.1 MG/DL (1.8-2.4); PHOSPHORUS LEVEL 5.1 MG/DL (2.5-4.9); POTASSIUM SERUM 3.9 MEQ/L (3.5-5.1); SODIUM LEVEL 137 MEQ/L (136-145)
[2017-05-29 14:20] LABS: PREALBUMIN 16.1 MG/DL (20.0-40.0)
== END ==
LOC: M SHH 13:21
DX: K63.2 Fistula of intestine (principal); K50.814 Crohn's disease of both small and large intestine with abscess
CPT/HCPCS: 83735

== ENCOUNTER → 2017-05-29 | Outpatient (REF) | payer MEDICARE ==
[2017-05-29 14:13] LABS: ALBUMIN 1.9 GM/DL (3.2-5.2); ALBUMIN/GLOBULIN RATIO 0.37 (1.00-1.93); ALKALINE PHOSPHATASE 195 U/L (45-117); ALT/SGPT 67 U/L (12-78); AST/SGOT 61 U/L (7-37); BILIRUBIN,DIRECT 3.9 MG/DL (0.0-0.2); BILIRUBIN,TOTAL 4.6 MG/DL (0.2-1.0)
== END ==
LOC: M SHH 13:23
DX: R94.5 Abnormal results of liver function studies (principal)

== ENCOUNTER → 2017-06-05 | Outpatient (REF) | payer MEDICARE ==
[2017-06-05 16:17] LABS: BASO % 0.4 % (0.0-1.0); EOS % 0.1 % (0.0-3.0); HEMATOCRIT 32.2 % (36.0-47.0); HEMOGLOBIN 10.4 g/dl (12.0-16.0); IMMATURE GRANULOCYTE % 0.6 % (0-3.0); LYMPH # 0.8 10^3/uL (1.5-4.5); LYMPH % 7.8 % (24.0-44.0); MEAN CORPUSCULAR HEMOGLOBIN 30.8 pg (27.0-33.0); MEAN CORPUSCULAR HGB CONC 32.3 g/dl (32.0-36.5); MEAN CORPUSCULAR VOLUME 95.3 fl (80.0-96.0); MONO # 0.9 10^3/uL (0.0-0.8); MONO % 8.4 % (0.0-5.0); NEUTROPHILS # 8.3 10^3/uL (1.8-7.7); NEUTROPHILS % 82.7 % (36.0-66.0); PLATELET COUNT, AUTOMATED 370 10^3/uL (150-450); RED BLOOD COUNT 3.38 10^6/uL (4.00-5.40); RED CELL DISTRIBUTION WIDTH 16.8 % (11.5-14.5); WHITE BLOOD COUNT 10.1 10^3/uL (4.0-10.0)
[2017-06-05 17:29] LABS: ANION GAP 13 MEQ/L (8-16); BLOOD UREA NITROGEN 40 MG/DL (7-18); CALCIUM LEVEL 8.9 MG/DL (8.8-10.2); CARBON DIOXIDE LEVEL 30 MEQ/L (21-32); CHLORIDE LEVEL 92 MEQ/L (98-107); CREATININE FOR GFR 1.48 MG/DL (0.55-1.30); GLOMERULAR FILTRATION RATE 37.1 (>39); GLUCOSE, FASTING 118 MG/DL (70-100); MAGNESIUM LEVEL 2.1 MG/DL (1.8-2.4); PHOSPHORUS LEVEL 4.3 MG/DL (2.5-4.9); POTASSIUM SERUM 3.6 MEQ/L (3.5-5.1); SODIUM LEVEL 135 MEQ/L (136-145)
[2017-06-05 17:38] LABS: PREALBUMIN 14.9 MG/DL (20.0-40.0)
== END ==
LOC: M LAB REF 15:54
DX: K50.814 Crohn's disease of both small and large intestine with abscess (principal); K63.2 Fistula of intestine

== ENCOUNTER → 2017-06-05 | Outpatient (REF) | payer MEDICARE ==
[2017-06-05 22:17] LABS: ALBUMIN 2.1 GM/DL (3.2-5.2); ALBUMIN/GLOBULIN RATIO 0.37 (1.00-1.93); ALKALINE PHOSPHATASE 181 U/L (45-117); ALT/SGPT 71 U/L (12-78); ANION GAP 12 MEQ/L (8-16); AST/SGOT 82 U/L (7-37); BILIRUBIN,DIRECT 3.4 MG/DL (0.0-0.2); BILIRUBIN,TOTAL 4.3 MG/DL (0.2-1.0); BLOOD UREA NITROGEN 41 MG/DL (7-18); CARBON DIOXIDE LEVEL 28 MEQ/L (21-32); CHLORIDE LEVEL 93 MEQ/L (98-107); CREATININE FOR GFR 1.48 MG/DL (0.55-1.30); GLOMERULAR FILTRATION RATE 37.1 (>39); GLUCOSE, FASTING 119 MG/DL (70-100); POTASSIUM SERUM 3.5 MEQ/L (3.5-5.1); PREALBUMIN 14.7 MG/DL (20.0-40.0); SODIUM LEVEL 133 MEQ/L (136-145); TOTAL PROTEIN 7.8 GM/DL (6.4-8.2)
[2017-06-05 22:22] LABS: EOS % 0.1 % (0.0-3.0); HEMATOCRIT 32.2 % (36.0-47.0); HEMOGLOBIN 10.4 g/dl (12.0-16.0); LYMPH % 7.8 % (24.0-44.0); MEAN CORPUSCULAR HEMOGLOBIN 30.8 pg (27.0-33.0); MEAN CORPUSCULAR HGB CONC 32.3 g/dl (32.0-36.5); MEAN CORPUSCULAR VOLUME 95.3 fl (80.0-96.0); MONO % 8.4 % (0.0-5.0); NEUTROPHILS % 82.7 % (36.0-66.0); PLATELET COUNT, AUTOMATED 370 10^3/uL (150-450); RED BLOOD COUNT 3.38 10^6/uL (4.00-5.40); RED CELL DISTRIBUTION WIDTH 16.8 % (11.5-14.5); WHITE BLOOD COUNT 10.1 10^3/uL (4.0-10.0)
[2017-06-05 22:23] LABS: BASO % 0.4 % (0.0-1.0); IMMATURE GRANULOCYTE % 0.6 % (0-3.0); LYMPH # 0.8 10^3/uL (1.5-4.5); MONO # 0.9 10^3/uL (0.0-0.8); NEUTROPHILS # 8.3 10^3/uL (1.8-7.7)
== END ==
LOC: M LAB REF 15:52
DX: K50.013 Crohn's disease of small intestine with fistula (principal); R94.5 Abnormal results of liver function studies
CPT/HCPCS: 83735

== ENCOUNTER → 2017-06-12 | Outpatient (REF) | payer MEDICARE ==
[2017-06-12 13:40] LABS: BASO % 0.4 % (0.0-1.0); EOS % 0.4 % (0.0-3.0); HEMATOCRIT 39.4 % (36.0-47.0); HEMOGLOBIN 12.8 g/dl (12.0-16.0); IMMATURE GRANULOCYTE % 0.7 % (0-3.0); LYMPH # 0.5 10^3/uL (1.5-4.5); LYMPH % 5.5 % (24.0-44.0); MEAN CORPUSCULAR HGB CONC 32.5 g/dl (32.0-36.5); MEAN CORPUSCULAR VOLUME 95.4 fl (80.0-96.0); MONO # 0.6 10^3/uL (0.0-0.8); MONO % 6.9 % (0.0-5.0); NEUTROPHILS # 7.1 10^3/uL (1.8-7.7); NEUTROPHILS % 86.1 % (36.0-66.0); PLATELET COUNT, AUTOMATED 262 10^3/uL (150-450); RED BLOOD COUNT 4.13 10^6/uL (4.00-5.40); RED CELL DISTRIBUTION WIDTH 16.6 % (11.5-14.5); WHITE BLOOD COUNT 8.3 10^3/uL (4.0-10.0)
[2017-06-12 13:58] LABS: ANION GAP 9 MEQ/L (8-16); BLOOD UREA NITROGEN 24 MG/DL (7-18); CALCIUM LEVEL 8.9 MG/DL (8.8-10.2); CARBON DIOXIDE LEVEL 30 MEQ/L (21-32); CHLORIDE LEVEL 96 MEQ/L (98-107); CREATININE FOR GFR 1.18 MG/DL (0.55-1.30); GLOMERULAR FILTRATION RATE 48.2 (>39); GLUCOSE, FASTING 81 MG/DL (70-100); MAGNESIUM LEVEL 1.6 MG/DL (1.8-2.4); PHOSPHORUS LEVEL 4.1 MG/DL (2.5-4.9); POTASSIUM SERUM 3.9 MEQ/L (3.5-5.1); PREALBUMIN 15.7 MG/DL (20.0-40.0); SODIUM LEVEL 135 MEQ/L (136-145)
== END ==
LOC: M SHH 12:37
DX: K50.814 Crohn's disease of both small and large intestine with abscess (principal); K63.2 Fistula of intestine; R94.5 Abnormal results of liver function studies
CPT/HCPCS: 83735

== ENCOUNTER → 2017-06-12 | Outpatient (REF) | payer MEDICARE ==
[2017-06-12 13:38] LABS: BASO % 0.5 % (0.0-1.0); EOS % 0.5 % (0.0-3.0); HEMATOCRIT 39.8 % (36.0-47.0); HEMOGLOBIN 12.7 g/dl (12.0-16.0); IMMATURE GRANULOCYTE % 0.7 % (0-3.0); LYMPH # 0.4 10^3/uL (1.5-4.5); LYMPH % 4.6 % (24.0-44.0); MEAN CORPUSCULAR HEMOGLOBIN 30.5 pg (27.0-33.0); MEAN CORPUSCULAR HGB CONC 31.9 g/dl (32.0-36.5); MEAN CORPUSCULAR VOLUME 95.4 fl (80.0-96.0); MONO # 0.6 10^3/uL (0.0-0.8); MONO % 6.7 % (0.0-5.0); NEUTROPHILS # 7.2 10^3/uL (1.8-7.7); PLATELET COUNT, AUTOMATED 273 10^3/uL (150-450); RED BLOOD COUNT 4.17 10^6/uL (4.00-5.40); RED CELL DISTRIBUTION WIDTH 16.6 % (11.5-14.5); WHITE BLOOD COUNT 8.2 10^3/uL (4.0-10.0)
[2017-06-12 14:00] LABS: ALBUMIN 1.8 GM/DL (3.2-5.2); ALBUMIN/GLOBULIN RATIO 0.36 (1.00-1.93); ALKALINE PHOSPHATASE 164 U/L (45-117); ALT/SGPT 65 U/L (12-78); ANION GAP 10 MEQ/L (8-16); AST/SGOT 64 U/L (7-37); BILIRUBIN,DIRECT 2.3 MG/DL (0.0-0.2); BILIRUBIN,TOTAL 2.8 MG/DL (0.2-1.0); BLOOD UREA NITROGEN 25 MG/DL (7-18); CALCIUM LEVEL 8.9 MG/DL (8.8-10.2); CARBON DIOXIDE LEVEL 29 MEQ/L (21-32); CHLORIDE LEVEL 96 MEQ/L (98-107); CREATININE FOR GFR 1.19 MG/DL (0.55-1.30); GLOMERULAR FILTRATION RATE 47.7 (>39); GLUCOSE, FASTING 81 MG/DL (70-100); POTASSIUM SERUM 3.9 MEQ/L (3.5-5.1); PREALBUMIN 15.8 MG/DL (20.0-40.0); SODIUM LEVEL 135 MEQ/L (136-145); TOTAL PROTEIN 6.8 GM/DL (6.4-8.2)
== END ==
LOC: M SHH 12:39
DX: K50.013 Crohn's disease of small intestine with fistula (principal); R94.5 Abnormal results of liver function studies

== ENCOUNTER → 2017-06-19 | Outpatient (REF) | payer MEDICARE ==
[2017-06-19 11:41] LABS: BASO % 0.3 % (0.0-1.0); EOS # 0.1 10^3/uL (0.0-0.50); EOS % 0.7 % (0.0-3.0); HEMATOCRIT 27.9 % (36.0-47.0); HEMOGLOBIN 8.9 g/dl (12.0-16.0); IMMATURE GRANULOCYTE % 0.5 % (0-3.0); LYMPH # 0.5 10^3/uL (1.5-4.5); LYMPH % 4.4 % (24.0-44.0); MEAN CORPUSCULAR HEMOGLOBIN 30.4 pg (27.0-33.0); MEAN CORPUSCULAR HGB CONC 31.9 g/dl (32.0-36.5); MEAN CORPUSCULAR VOLUME 95.2 fl (80.0-96.0); MONO # 0.8 10^3/uL (0.0-0.8); NEUTROPHILS # 8.8 10^3/uL (1.8-7.7); NEUTROPHILS % 86.1 % (36.0-66.0); PLATELET COUNT, AUTOMATED 340 10^3/uL (150-450); RED BLOOD COUNT 2.93 10^6/uL (4.00-5.40); RED CELL DISTRIBUTION WIDTH 16.1 % (11.5-14.5); WHITE BLOOD COUNT 10.2 10^3/uL (4.0-10.0)
[2017-06-19 16:28] LABS: ALBUMIN 1.7 GM/DL (3.2-5.2); ALBUMIN/GLOBULIN RATIO 0.37 (1.00-1.93); ALKALINE PHOSPHATASE 139 U/L (45-117); ALT/SGPT 43 U/L (12-78); ANION GAP 7 MEQ/L (8-16); AST/SGOT 40 U/L (7-37); BILIRUBIN,DIRECT 1.5 MG/DL (0.0-0.2); BILIRUBIN,TOTAL 1.9 MG/DL (0.2-1.0); BLOOD UREA NITROGEN 23 MG/DL (7-18); CALCIUM LEVEL 8.5 MG/DL (8.8-10.2); CARBON DIOXIDE LEVEL 28 MEQ/L (21-32); CHLORIDE LEVEL 103 MEQ/L (98-107); CREATININE FOR GFR 1.08 MG/DL (0.55-1.30); GLOMERULAR FILTRATION RATE 53.4 (>39); GLUCOSE, FASTING 82 MG/DL (70-100); POTASSIUM SERUM 3.7 MEQ/L (3.5-5.1); PREALBUMIN 11.4 MG/DL (20.0-40.0); SODIUM LEVEL 138 MEQ/L (136-145); TOTAL PROTEIN 6.3 GM/DL (6.4-8.2)
== END ==
LOC: M SHH 11:28
DX: K50.013 Crohn's disease of small intestine with fistula (principal); R94.5 Abnormal results of liver function studies

== ENCOUNTER → 2017-06-19 | Outpatient (REF) | payer MEDICARE ==
[2017-06-19 11:41] LABS: BASO % 0.3 % (0.0-1.0); EOS # 0.1 10^3/uL (0.0-0.50); EOS % 0.5 % (0.0-3.0); HEMATOCRIT 27.5 % (36.0-47.0); HEMOGLOBIN 8.9 g/dl (12.0-16.0); IMMATURE GRANULOCYTE % 0.5 % (0-3.0); LYMPH # 0.5 10^3/uL (1.5-4.5); LYMPH % 4.7 % (24.0-44.0); MEAN CORPUSCULAR HEMOGLOBIN 31.1 pg (27.0-33.0); MEAN CORPUSCULAR HGB CONC 32.4 g/dl (32.0-36.5); MEAN CORPUSCULAR VOLUME 96.2 fl (80.0-96.0); MONO # 0.8 10^3/uL (0.0-0.8); MONO % 7.8 % (0.0-5.0); NEUTROPHILS # 8.8 10^3/uL (1.8-7.7); NEUTROPHILS % 86.2 % (36.0-66.0); PLATELET COUNT, AUTOMATED 309 10^3/uL (150-450); RED BLOOD COUNT 2.86 10^6/uL (4.00-5.40); RED CELL DISTRIBUTION WIDTH 16.2 % (11.5-14.5); WHITE BLOOD COUNT 10.2 10^3/uL (4.0-10.0)
[2017-06-19 11:58] LABS: ANION GAP 10 MEQ/L (8-16); BLOOD UREA NITROGEN 23 MG/DL (7-18); CALCIUM LEVEL 8.6 MG/DL (8.8-10.2); CARBON DIOXIDE LEVEL 26 MEQ/L (21-32); CHLORIDE LEVEL 103 MEQ/L (98-107); CREATININE FOR GFR 1.05 MG/DL (0.55-1.30); GLOMERULAR FILTRATION RATE 55.2 (>39); GLUCOSE, FASTING 83 MG/DL (70-100); MAGNESIUM LEVEL 2.1 MG/DL (1.8-2.4); PHOSPHORUS LEVEL 4.4 MG/DL (2.5-4.9); POTASSIUM SERUM 3.7 MEQ/L (3.5-5.1); PREALBUMIN 11.4 MG/DL (20.0-40.0); SODIUM LEVEL 139 MEQ/L (136-145)
== END ==
LOC: M SHH 11:25
DX: K50.814 Crohn's disease of both small and large intestine with abscess (principal); K63.2 Fistula of intestine; R94.5 Abnormal results of liver function studies
CPT/HCPCS: 83735

== ENCOUNTER 2017-06-26 09:59 | Emergency (ER) | payer MEDICARE ==
[2017-06-26 12:55] LABS: BASO % 0.3 % (0.0-1.0); EOS % 0.1 % (0.0-3.0); HEMATOCRIT 26.7 % (36.0-47.0); HEMOGLOBIN 8.7 g/dl (12.0-16.0); IMMATURE GRANULOCYTE % 0.8 % (0-3.0); LYMPH # 0.7 10^3/uL (1.5-4.5); LYMPH % 4.6 % (24.0-44.0); MEAN CORPUSCULAR HEMOGLOBIN 30.6 pg (27.0-33.0); MEAN CORPUSCULAR HGB CONC 32.6 g/dl (32.0-36.5); MONO # 0.9 10^3/uL (0.0-0.8); MONO % 5.5 % (0.0-5.0); NEUTROPHILS # 13.9 10^3/uL (1.8-7.7); NEUTROPHILS % 88.7 % (36.0-66.0); PLATELET COUNT, AUTOMATED 317 10^3/uL (150-450); RED BLOOD COUNT 2.84 10^6/uL (4.00-5.40); RED CELL DISTRIBUTION WIDTH 15.7 % (11.5-14.5); WHITE BLOOD COUNT 15.7 10^3/uL (4.0-10.0)
[2017-06-26 12:58] LABS: KETONE, URINE AUTO RFX NEGATIVE (NEGATIVE); LEUKOCYTE ESTERASE UR AUTO RFX NEGATIVE (NEGATIVE); NITRITE, URINE AUTO RFX NEGATIVE (NEGATIVE); RBC, URINE AUTO RFX 0 /HPF (0-3); SPECIFIC GRAVITY UR AUTO RFX 1.003 (1.002-1.035); SQUAM EPITHELIAL CELL UR AURFX 0 /HPF (0-6); WBC, URINE AUTO RFX 0 /HPF (0-3)
[2017-06-26 13:05] LABS: INR 1.15; PROTHROMBIN TIME 14.9 SECONDS (12.4-14.5)
[2017-06-26 13:35] LABS: LACTIC ACID SEPSIS PROTOCOL 0.9 MMOL/L (0.4-2.0)
[2017-06-26 13:38] LABS: ALBUMIN 1.5 GM/DL (3.2-5.2); ALBUMIN/GLOBULIN RATIO 0.26 (1.00-1.93); ALKALINE PHOSPHATASE 175 U/L (45-117); ALT/SGPT 43 U/L (12-78); ANION GAP 9 MEQ/L (8-16); AST/SGOT 42 U/L (7-37); BILIRUBIN,DIRECT 1.1 MG/DL (0.0-0.2); BILIRUBIN,TOTAL 1.6 MG/DL (0.2-1.0); BLOOD UREA NITROGEN 28 MG/DL (7-18); CALCIUM LEVEL 8.7 MG/DL (8.8-10.2); CARBON DIOXIDE LEVEL 26 MEQ/L (21-32); CHLORIDE LEVEL 102 MEQ/L (98-107); CPK CREATINE PHOSPHOKINASE 15 U/L (26-192); GLOMERULAR FILTRATION RATE 52.3 (>39); GLUCOSE, FASTING 88 MG/DL (70-100); LIPASE 92 U/L (73-393); MB/CK RELATIVE INDEX 6.66 (< OR =4); POTASSIUM SERUM 3.7 MEQ/L (3.5-5.1); SODIUM LEVEL 137 MEQ/L (136-145); TOTAL PROTEIN 7.2 GM/DL (6.4-8.2); TROPONIN I 0.05 NG/ML (< 0.10)
[2017-06-26] MEDS ORDERED: ISOVUE-370 76% 100ML VIAL (Q9967) As Ordered (13:39)
[2017-06-26] MEDS ORDERED: SODIUM CHLORIDE 0.9% INJ 10 ML SYR IV (15:30)
== END 2017-06-26 16:29 | disposition home or self-care (01) ==
LOC: M ED 09:59
DX: R07.9 Chest pain, unspecified (principal); M79.601 Pain in right arm; F33.9 Major depressive disorder, recurrent, unspecified; M81.0 Age-related osteoporosis without current pathological fracture; Z95.9 Presence of cardiac and vascular implant and graft, unspecified
CPT/HCPCS: Q9967

== ENCOUNTER → 2017-07-03 | Outpatient (REF) | payer MEDICARE ==
[2017-07-03 12:20] LABS: BASO % 0.2 % (0.0-1.0); EOS % 0.3 % (0.0-3.0); HEMATOCRIT 28.8 % (36.0-47.0); HEMOGLOBIN 9.1 g/dl (12.0-16.0); IMMATURE GRANULOCYTE % 0.7 % (0-3.0); LYMPH # 0.5 10^3/uL (1.5-4.5); LYMPH % 5.3 % (24.0-44.0); MEAN CORPUSCULAR HEMOGLOBIN 29.8 pg (27.0-33.0); MEAN CORPUSCULAR HGB CONC 31.6 g/dl (32.0-36.5); MEAN CORPUSCULAR VOLUME 94.4 fl (80.0-96.0); MONO # 0.5 10^3/uL (0.0-0.8); MONO % 5.8 % (0.0-5.0); NEUTROPHILS # 7.5 10^3/uL (1.8-7.7); NEUTROPHILS % 87.7 % (36.0-66.0); PLATELET COUNT, AUTOMATED 377 10^3/uL (150-450); RED BLOOD COUNT 3.05 10^6/uL (4.00-5.40); RED CELL DISTRIBUTION WIDTH 15.2 % (11.5-14.5); WHITE BLOOD COUNT 8.6 10^3/uL (4.0-10.0)
[2017-07-03 13:10] LABS: ANION GAP 9 MEQ/L (8-16); BLOOD UREA NITROGEN 30 MG/DL (7-18); CALCIUM LEVEL 8.8 MG/DL (8.8-10.2); CARBON DIOXIDE LEVEL 28 MEQ/L (21-32); CHLORIDE LEVEL 105 MEQ/L (98-107); CREATININE FOR GFR 1.04 MG/DL (0.55-1.30); GLOMERULAR FILTRATION RATE 55.8 (>39); GLUCOSE, FASTING 67 MG/DL (70-100); MAGNESIUM LEVEL 2.2 MG/DL (1.8-2.4); PHOSPHORUS LEVEL 4.8 MG/DL (2.5-4.9); POTASSIUM SERUM 3.8 MEQ/L (3.5-5.1); PREALBUMIN 14.8 MG/DL (20.0-40.0); SODIUM LEVEL 142 MEQ/L (136-145)
== END ==
LOC: M SHH 12:01
DX: K50.814 Crohn's disease of both small and large intestine with abscess (principal); K63.2 Fistula of intestine; R94.5 Abnormal results of liver function studies
CPT/HCPCS: 83735

== ENCOUNTER → 2017-07-10 | Outpatient (REF) | payer MEDICARE ==
[2017-07-10 11:35] LABS: BASO % 0.3 % (0.0-1.0); EOS % 0.3 % (0.0-3.0); HEMATOCRIT 29.4 % (36.0-47.0); HEMOGLOBIN 9.4 g/dl (12.0-16.0); IMMATURE GRANULOCYTE % 0.4 % (0-3.0); LYMPH # 0.4 10^3/uL (1.5-4.5); LYMPH % 5.2 % (24.0-44.0); MEAN CORPUSCULAR HEMOGLOBIN 29.9 pg (27.0-33.0); MEAN CORPUSCULAR VOLUME 93.6 fl (80.0-96.0); MONO # 0.5 10^3/uL (0.0-0.8); MONO % 6.6 % (0.0-5.0); NEUTROPHILS # 6.9 10^3/uL (1.8-7.7); NEUTROPHILS % 87.2 % (36.0-66.0); PLATELET COUNT, AUTOMATED 330 10^3/uL (150-450); RED BLOOD COUNT 3.14 10^6/uL (4.00-5.40); RED CELL DISTRIBUTION WIDTH 14.5 % (11.5-14.5); WHITE BLOOD COUNT 7.9 10^3/uL (4.0-10.0)
[2017-07-10 12:02] LABS: ANION GAP 8 MEQ/L (8-16); BLOOD UREA NITROGEN 30 MG/DL (7-18); CALCIUM LEVEL 8.6 MG/DL (8.8-10.2); CARBON DIOXIDE LEVEL 28 MEQ/L (21-32); CHLORIDE LEVEL 105 MEQ/L (98-107); CREATININE FOR GFR 0.88 MG/DL (0.55-1.30); GLOMERULAR FILTRATION RATE > 60.0 (>39); GLUCOSE, FASTING 69 MG/DL (70-100); MAGNESIUM LEVEL 2.2 MG/DL (1.8-2.4); PHOSPHORUS LEVEL 4.1 MG/DL (2.5-4.9); SODIUM LEVEL 141 MEQ/L (136-145)
[2017-07-10 12:12] LABS: PREALBUMIN 12.7 MG/DL (20.0-40.0)
[2017-07-12 13:30] LABS: ALBUMIN/GLOBULIN RATIO 0.41 (1.00-1.93); ALKALINE PHOSPHATASE 284 U/L (45-117); ALT/SGPT 31 U/L (12-78); AST/SGOT 32 U/L (7-37); BILIRUBIN,DIRECT 0.6 MG/DL (0.0-0.2); BILIRUBIN,TOTAL 0.8 MG/DL (0.2-1.0); TOTAL PROTEIN 6.9 GM/DL (6.4-8.2)
== END ==
LOC: M SHH 11:18
DX: K63.2 Fistula of intestine (principal); K50.814 Crohn's disease of both small and large intestine with abscess
CPT/HCPCS: 83735

== ENCOUNTER → 2017-07-17 | Outpatient (REF) | payer MEDICARE ==
[2017-07-17 12:58] LABS: BASO % 0.2 % (0.0-1.0); EOS % 0.1 % (0.0-3.0); HEMATOCRIT 29.2 % (36.0-47.0); HEMOGLOBIN 9.3 g/dl (12.0-16.0); IMMATURE GRANULOCYTE % 0.6 % (0-3.0); LYMPH # 0.4 10^3/uL (1.5-4.5); LYMPH % 3.2 % (24.0-44.0); MEAN CORPUSCULAR HEMOGLOBIN 29.6 pg (27.0-33.0); MEAN CORPUSCULAR HGB CONC 31.8 g/dl (32.0-36.5); MONO # 0.6 10^3/uL (0.0-0.8); MONO % 4.8 % (0.0-5.0); NEUTROPHILS # 11.5 10^3/uL (1.8-7.7); NEUTROPHILS % 91.1 % (36.0-66.0); PLATELET COUNT, AUTOMATED 334 10^3/uL (150-450); RED BLOOD COUNT 3.14 10^6/uL (4.00-5.40); RED CELL DISTRIBUTION WIDTH 14.5 % (11.5-14.5); WHITE BLOOD COUNT 12.6 10^3/uL (4.0-10.0)
[2017-07-17 13:31] LABS: ANION GAP 7 MEQ/L (8-16); BLOOD UREA NITROGEN 27 MG/DL (7-18); CALCIUM LEVEL 8.8 MG/DL (8.8-10.2); CARBON DIOXIDE LEVEL 28 MEQ/L (21-32); CHLORIDE LEVEL 103 MEQ/L (98-107); CREATININE FOR GFR 1.17 MG/DL (0.55-1.30); GLOMERULAR FILTRATION RATE 48.7 (>39); GLUCOSE, FASTING 76 MG/DL (70-100); MAGNESIUM LEVEL 2.4 MG/DL (1.8-2.4); PHOSPHORUS LEVEL 3.8 MG/DL (2.5-4.9); POTASSIUM SERUM 3.8 MEQ/L (3.5-5.1); SODIUM LEVEL 138 MEQ/L (136-145)
[2017-07-17 15:18] LABS: AST/SGOT 26 U/L (7-37); BILIRUBIN,TOTAL 0.8 MG/DL (0.2-1.0); PREALBUMIN 12.7 MG/DL (20.0-40.0)
[2017-07-17 15:43] LABS: ALKALINE PHOSPHATASE 256 U/L (45-117); ALT/SGPT 28 U/L (12-78); BILIRUBIN,DIRECT 0.6 MG/DL (0.0-0.2)
[2017-07-17 22:14] LABS: ALBUMIN 1.9 GM/DL (3.2-5.2); ALBUMIN/GLOBULIN RATIO 0.37 (1.00-1.93)
== END ==
LOC: M SHH 12:42
DX: K50.814 Crohn's disease of both small and large intestine with abscess (principal); K63.2 Fistula of intestine
CPT/HCPCS: 83735

== ENCOUNTER → 2017-07-24 | Outpatient (REF) | payer MEDICARE ==
[2017-07-24 17:48] LABS: BASO % 0.2 % (0.0-1.0); EOS % 0.1 % (0.0-3.0); HEMATOCRIT 26.9 % (36.0-47.0); HEMOGLOBIN 8.5 g/dl (12.0-15.5); IMMATURE GRANULOCYTE % 0.6 % (0-3.0); LYMPH # 0.6 10^3/uL (1.5-4.5); MEAN CORPUSCULAR HEMOGLOBIN 29.2 pg (27.0-33.0); MEAN CORPUSCULAR HGB CONC 31.6 g/dl (32.0-36.5); MEAN CORPUSCULAR VOLUME 92.4 fl (80.0-96.0); MONO % 7.2 % (0.0-5.0); NEUTROPHILS # 12.2 10^3/uL (1.8-7.7); NEUTROPHILS % 87.9 % (36.0-66.0); PLATELET COUNT, AUTOMATED 331 10^3/uL (150-450); RED BLOOD COUNT 2.91 10^6/uL (4.00-5.40); RED CELL DISTRIBUTION WIDTH 14.3 % (11.5-14.5); WHITE BLOOD COUNT 13.9 10^3/uL (4.0-10.0)
[2017-07-24 18:26] LABS: ALBUMIN 1.8 GM/DL (3.2-5.2); ALBUMIN/GLOBULIN RATIO 0.37 (1.00-1.93); ALKALINE PHOSPHATASE 331 U/L (45-117); ALT/SGPT 32 U/L (12-78); ANION GAP 7 MEQ/L (8-16); AST/SGOT 26 U/L (7-37); BILIRUBIN,DIRECT 0.4 MG/DL (0.0-0.2); BILIRUBIN,TOTAL 0.7 MG/DL (0.2-1.0); BLOOD UREA NITROGEN 45 MG/DL (7-18); CALCIUM LEVEL 8.4 MG/DL (8.8-10.2); CARBON DIOXIDE LEVEL 26 MEQ/L (21-32); CHLORIDE LEVEL 103 MEQ/L (98-107); CREATININE FOR GFR 1.02 MG/DL (0.55-1.30); GLUCOSE, FASTING 85 MG/DL (70-100); SODIUM LEVEL 136 MEQ/L (136-145); TOTAL PROTEIN 6.7 GM/DL (6.4-8.2)
== END ==
LOC: M SHH 17:38
DX: K65.1 Peritoneal abscess (principal); K50.814 Crohn's disease of both small and large intestine with abscess; R94.5 Abnormal results of liver function studies
CPT/HCPCS: 80076

== ENCOUNTER 2017-07-30 21:29 | Observation (INO) | payer MEDICARE ==
[2017-07-30] MEDS: NS 500 ML IV (22:50)
[2017-07-30 22:58] LABS: BASO % 0.2 % (0.0-1.0); HEMATOCRIT 30.3 % (36.0-47.0); HEMOGLOBIN 9.7 g/dl (12.0-15.5); IMMATURE GRANULOCYTE % 0.9 % (0-3.0); LYMPH # 0.5 10^3/uL (1.5-4.5); LYMPH % 2.3 % (24.0-44.0); MEAN CORPUSCULAR HEMOGLOBIN 28.4 pg (27.0-33.0); MEAN CORPUSCULAR VOLUME 88.6 fl (80.0-96.0); MONO # 1.1 10^3/uL (0.0-0.8); NEUTROPHILS # 20.5 10^3/uL (1.8-7.7); NEUTROPHILS % 91.6 % (36.0-66.0); PLATELET COUNT, AUTOMATED 420 10^3/uL (150-450); RED BLOOD COUNT 3.42 10^6/uL (4.00-5.40); RED CELL DISTRIBUTION WIDTH 14.3 % (11.5-14.5); WHITE BLOOD COUNT 22.4 10^3/uL (4.0-10.0)
[2017-07-30] MEDS: PIPERACILLIN/TAZOBACTAM SOD 3.375 GM in APPROPRIATE DILUENT 1 EA IV (23:13)
[2017-07-30 23:29] LABS: LACTIC ACID SEPSIS PROTOCOL 1.5 MMOL/L (0.4-2.0)
[2017-07-30 23:34] LABS: ALBUMIN 1.8 GM/DL (3.2-5.2); ALBUMIN/GLOBULIN RATIO 0.28 (1.00-1.93); ALKALINE PHOSPHATASE 297 U/L (45-117); ALT/SGPT 30 U/L (12-78); ANION GAP 11 MEQ/L (8-16); AST/SGOT 22 U/L (7-37); BILIRUBIN,DIRECT 0.6 MG/DL (0.0-0.2); BLOOD UREA NITROGEN 49 MG/DL (7-18); CALCIUM LEVEL 9.3 MG/DL (8.8-10.2); CARBON DIOXIDE LEVEL 25 MEQ/L (21-32); CHLORIDE LEVEL 100 MEQ/L (98-107); CREATININE FOR GFR 1.42 MG/DL (0.55-1.30); FREE THYROXINE INDEX 5.2 % (1.3-4.8); GLOMERULAR FILTRATION RATE 38.9 (>39); GLUCOSE, FASTING 111 MG/DL (70-100); LIPASE 103 U/L (73-393); POTASSIUM SERUM 3.6 MEQ/L (3.5-5.1); SODIUM LEVEL 136 MEQ/L (136-145); T UPTAKE 38 % (30-39); THYROXINE (T4) 13.6 UG/DL (4.5-12.0); TOTAL PROTEIN 8.2 GM/DL (6.4-8.2)
[2017-07-30 23:52] LABS: INFLUENZA A AMPLIFICATION NEGATIVE (NEGATIVE); INFLUENZA B AMPLIFICATION NEGATIVE (NEGATIVE)
[2017-07-30] MEDS: HYDROCORTISONE 100 MG/2 ML VIAL (J1720) IV (23:57)
[2017-07-30] MEDS ORDERED: ISOVUE-370 76% 100ML VIAL (Q9967) As Ordered (23:58)
[2017-07-31] MEDS: NS 1,000 ML IV (00:59)
[2017-07-31] MEDS ORDERED: ONDANSETRON 4MG/2ML VIAL (J2405) IV (01:00)
[2017-07-31] MEDS ORDERED: ACETAMINOPHEN TAB 650MG DOSE (2X325MG) PO (01:00)
[2017-07-31] MEDS ORDERED: MORPHINE 4 MG/ML 1ML VIAL/SYRINGE (J2270) IV (01:00)
[2017-07-31] MEDS ORDERED: PERCOCET 5MG/325MG TAB PO (01:00)
[2017-07-31] MEDS: CIPROFLOXACIN 200 MG in APPROPRIATE DILUENT 1 EA IV ×2 (01:35→11:40)
[2017-07-31 02:14] LABS: KETONE, URINE AUTO RFX NEGATIVE (NEGATIVE); LEUKOCYTE ESTERASE UR AUTO RFX NEGATIVE (NEGATIVE); MUCUS, URINE RFX SMALL (NEGATIVE); NITRITE, URINE AUTO RFX NEGATIVE (NEGATIVE); RBC, URINE AUTO RFX 3 /HPF (0-3); SQUAM EPITHELIAL CELL UR AURFX 1 /HPF (0-6); TRANSITIONAL EPITHELIAL AU RFX 1 /HPF
[2017-07-31 02:16] LABS: WBC, URINE AUTO RFX 30 /HPF (0-3)
[2017-07-31] MEDS: metroNIDAZOLE 500 MG in APPROPRIATE DILUENT 1 EA IV ×2 (02:41→10:37)
[2017-07-31] MEDS: HEPARIN SOD (PORCINE) 5000 UNITS/ML VIAL SC ×2 (05:11→14:00)
[2017-07-31] MEDS: FERROUS SULFATE 325MG TAB PO (08:13)
[2017-07-31] MEDS: CALCITRIOL 0.25 MCG CAP (S0169) PO (08:13)
[2017-07-31] MEDS: HYDROCORTISONE 100 MG/2 ML VIAL (J1720) IV ×2 (08:13→15:51)
[2017-07-31] MEDS: PANTOPRAZOLE 40MG INJ (PROTONIX) (C9113) IV (08:13)
[2017-07-31] MEDS: VITAMIN D 1,000 INTERNATIONAL UNITS TABLET PO (08:13)
[2017-07-31 09:13] LABS: MEAN CORPUSCULAR HEMOGLOBIN 28.6 pg (27.0-33.0); MEAN CORPUSCULAR VOLUME 89.3 fl (80.0-96.0); WHITE BLOOD COUNT 13.2 10^3/uL (4.0-10.0)
[2017-07-31 09:18] LABS: PLATELET COUNT, AUTOMATED 302 10^3/uL (150-450)
[2017-07-31 09:36] LABS: ALBUMIN 1.6 GM/DL (3.2-5.2); ALKALINE PHOSPHATASE 237 U/L (45-117); ALT/SGPT 22 U/L (12-78); AST/SGOT 16 U/L (7-37); BILIRUBIN,TOTAL 0.8 MG/DL (0.2-1.0); BLOOD UREA NITROGEN 46 MG/DL (7-18); CARBON DIOXIDE LEVEL 25 MEQ/L (21-32); CHLORIDE LEVEL 106 MEQ/L (98-107); CREATININE FOR GFR 1.21 MG/DL (0.55-1.30); GLUCOSE, FASTING 131 MG/DL (70-100); POTASSIUM SERUM 3.7 MEQ/L (3.5-5.1)
[2017-07-31 09:51] LABS: ALBUMIN/GLOBULIN RATIO 0.31 (1.00-1.93); CALCIUM LEVEL 8.2 MG/DL (8.8-10.2); TOTAL PROTEIN 6.7 GM/DL (6.4-8.2)
[2017-07-31 11:00] LABS: ANION GAP 8 MEQ/L (8-16); SODIUM LEVEL 139 MEQ/L (136-145)
== END 2017-07-31 17:24 | disposition home health service (06) ==
LOC: M ED INP 07-31 00:59 → M ED 21:29 → M ICU 07-31 01:56 → M ED INP 21:33 → M ICU 07-31 01:56
DX: A41.9 Sepsis, unspecified organism (principal); E27.2 Addisonian crisis; R10.9 Unspecified abdominal pain; D72.829 Elevated white blood cell count, unspecified; R50.9 Fever, unspecified; K50.90 Crohn's disease, unspecified, without complications; N17.9 Acute kidney failure, unspecified; E86.0 Dehydration; D64.9 Anemia, unspecified; E53.8 Deficiency of other specified B group vitamins; E27.40 Unspecified adrenocortical insufficiency; E46 Unspecified protein-calorie malnutrition; Z90.49 Acquired absence of other specified parts of digestive tract; Z93.3 Colostomy status; Z88.2 Allergy status to sulfonamides; Z88.8 Allergy status to other drugs, medicaments and biological substances; Z79.899 Other long term (current) drug therapy; Z79.52 Long term (current) use of systemic steroids
CPT/HCPCS: J1720

== ENCOUNTER → 2017-08-07 | Outpatient (REF) | payer MEDICARE ==
[2017-08-07 15:59] LABS: BASO % 0.2 % (0.0-1.0); EOS % 0.3 % (0.0-3.0); HEMATOCRIT 27.2 % (36.0-47.0); HEMOGLOBIN 8.5 g/dl (12.0-15.5); IMMATURE GRANULOCYTE % 0.6 % (0-3.0); LYMPH # 0.4 10^3/uL (1.5-4.5); LYMPH % 3.6 % (24.0-44.0); MEAN CORPUSCULAR HEMOGLOBIN 28.2 pg (27.0-33.0); MEAN CORPUSCULAR HGB CONC 31.3 g/dl (32.0-36.5); MEAN CORPUSCULAR VOLUME 90.4 fl (80.0-96.0); MONO # 0.8 10^3/uL (0.0-0.8); NEUTROPHILS # 9.7 10^3/uL (1.8-7.7); NEUTROPHILS % 88.3 % (36.0-66.0); PLATELET COUNT, AUTOMATED 409 10^3/uL (150-450); RED BLOOD COUNT 3.01 10^6/uL (4.00-5.40); RED CELL DISTRIBUTION WIDTH 14.8 % (11.5-14.5)
[2017-08-07 16:18] LABS: ALBUMIN 1.9 GM/DL (3.2-5.2); ALBUMIN/GLOBULIN RATIO 0.41 (1.00-1.93); ALKALINE PHOSPHATASE 240 U/L (45-117); ALT/SGPT 18 U/L (12-78); ANION GAP 5 MEQ/L (8-16); AST/SGOT 16 U/L (7-37); BILIRUBIN,DIRECT 0.4 MG/DL (0.0-0.2); BILIRUBIN,TOTAL 0.6 MG/DL (0.2-1.0); BLOOD UREA NITROGEN 34 MG/DL (7-18); CALCIUM LEVEL 8.5 MG/DL (8.8-10.2); CARBON DIOXIDE LEVEL 26 MEQ/L (21-32); CHLORIDE LEVEL 108 MEQ/L (98-107); CREATININE FOR GFR 0.93 MG/DL (0.55-1.30); GLOMERULAR FILTRATION RATE > 60.0 (>39); GLUCOSE, FASTING 92 MG/DL (70-100); MAGNESIUM LEVEL 1.9 MG/DL (1.8-2.4); PHOSPHORUS LEVEL 3.2 MG/DL (2.5-4.9); POTASSIUM SERUM 4.2 MEQ/L (3.5-5.1); PREALBUMIN 13.9 MG/DL (20.0-40.0); SODIUM LEVEL 139 MEQ/L (136-145); TOTAL PROTEIN 6.5 GM/DL (6.4-8.2)
== END ==
LOC: M SHH 15:47
DX: K65.1 Peritoneal abscess (principal); K50.814 Crohn's disease of both small and large intestine with abscess; E44.0 Moderate protein-calorie malnutrition
CPT/HCPCS: 83735

== ENCOUNTER → 2017-08-14 | Outpatient (REF) | payer MEDICARE ==
[2017-08-14 11:37] LABS: BASO % 0.2 % (0.0-1.0); EOS % 0.1 % (0.0-3.0); HEMOGLOBIN 8.8 g/dl (12.0-15.5); IMMATURE GRANULOCYTE % 0.6 % (0-3.0); LYMPH # 0.4 10^3/uL (1.5-4.5); LYMPH % 3.1 % (24.0-44.0); MEAN CORPUSCULAR HEMOGLOBIN 28.6 pg (27.0-33.0); MEAN CORPUSCULAR HGB CONC 32.6 g/dl (32.0-36.5); MEAN CORPUSCULAR VOLUME 87.7 fl (80.0-96.0); MONO # 0.8 10^3/uL (0.0-0.8); MONO % 6.4 % (0.0-5.0); NEUTROPHILS # 11.2 10^3/uL (1.8-7.7); NEUTROPHILS % 89.6 % (36.0-66.0); PLATELET COUNT, AUTOMATED 415 10^3/uL (150-450); RED BLOOD COUNT 3.08 10^6/uL (4.00-5.40); WHITE BLOOD COUNT 12.5 10^3/uL (4.0-10.0)
[2017-08-14 12:26] LABS: ALBUMIN 1.9 GM/DL (3.2-5.2); ALKALINE PHOSPHATASE 211 U/L (45-117); ALT/SGPT 16 U/L (12-78); ANION GAP 4 MEQ/L (8-16); AST/SGOT 13 U/L (7-37); BILIRUBIN,DIRECT 0.3 MG/DL (0.0-0.2); BILIRUBIN,TOTAL 0.5 MG/DL (0.2-1.0); BLOOD UREA NITROGEN 36 MG/DL (7-18); CALCIUM LEVEL 8.5 MG/DL (8.8-10.2); CARBON DIOXIDE LEVEL 29 MEQ/L (21-32); CHLORIDE LEVEL 104 MEQ/L (98-107); CREATININE FOR GFR 0.85 MG/DL (0.55-1.30); GLOMERULAR FILTRATION RATE > 60.0 (>39); GLUCOSE, FASTING 85 MG/DL (70-100); MAGNESIUM LEVEL 2.1 MG/DL (1.8-2.4); PHOSPHORUS LEVEL 3.6 MG/DL (2.5-4.9); POTASSIUM SERUM 4.3 MEQ/L (3.5-5.1); PREALBUMIN 13.5 MG/DL (20.0-40.0); SODIUM LEVEL 137 MEQ/L (136-145); TOTAL PROTEIN 6.6 GM/DL (6.4-8.2)
== END ==
LOC: M SHH 11:23
DX: K65.1 Peritoneal abscess (principal); K50.814 Crohn's disease of both small and large intestine with abscess; E44.0 Moderate protein-calorie malnutrition
CPT/HCPCS: 83735

== ENCOUNTER → 2017-08-21 | Outpatient (REF) | payer MEDICARE ==
[2017-08-21 11:37] LABS: BASO % 0.2 % (0.0-1.0); EOS # 0.1 10^3/uL (0.0-0.50); EOS % 0.4 % (0.0-3.0); HEMATOCRIT 30.2 % (36.0-47.0); HEMOGLOBIN 9.6 g/dl (12.0-15.5); IMMATURE GRANULOCYTE % 0.7 % (0-3.0); LYMPH # 0.5 10^3/uL (1.5-4.5); LYMPH % 4.7 % (24.0-44.0); MEAN CORPUSCULAR HEMOGLOBIN 28.2 pg (27.0-33.0); MEAN CORPUSCULAR HGB CONC 31.8 g/dl (32.0-36.5); MEAN CORPUSCULAR VOLUME 88.6 fl (80.0-96.0); MONO # 0.9 10^3/uL (0.0-0.8); MONO % 7.9 % (0.0-5.0); NEUTROPHILS % 86.1 % (36.0-66.0); PLATELET COUNT, AUTOMATED 448 10^3/uL (150-450); RED BLOOD COUNT 3.41 10^6/uL (4.00-5.40); RED CELL DISTRIBUTION WIDTH 14.9 % (11.5-14.5); WHITE BLOOD COUNT 11.6 10^3/uL (4.0-10.0)
[2017-08-21 12:17] LABS: ALBUMIN/GLOBULIN RATIO 0.43 (1.00-1.93); ALKALINE PHOSPHATASE 175 U/L (45-117); ALT/SGPT 17 U/L (12-78); ANION GAP 8 MEQ/L (8-16); AST/SGOT 16 U/L (7-37); BILIRUBIN,DIRECT 0.3 MG/DL (0.0-0.2); BILIRUBIN,TOTAL 0.5 MG/DL (0.2-1.0); BLOOD UREA NITROGEN 39 MG/DL (7-18); CALCIUM LEVEL 8.5 MG/DL (8.8-10.2); CARBON DIOXIDE LEVEL 26 MEQ/L (21-32); CHLORIDE LEVEL 103 MEQ/L (98-107); GLOMERULAR FILTRATION RATE > 60.0 (>39); GLUCOSE, FASTING 70 MG/DL (70-100); MAGNESIUM LEVEL 1.9 MG/DL (1.8-2.4); PHOSPHORUS LEVEL 3.7 MG/DL (2.5-4.9); POTASSIUM SERUM 4.2 MEQ/L (3.5-5.1); SODIUM LEVEL 137 MEQ/L (136-145); TOTAL PROTEIN 6.6 GM/DL (6.4-8.2)
[2017-08-21 12:37] LABS: PREALBUMIN 15.5 MG/DL (20.0-40.0)
== END ==
LOC: M LAB REF 11:10
DX: K50.814 Crohn's disease of both small and large intestine with abscess (principal); E44.0 Moderate protein-calorie malnutrition
CPT/HCPCS: 83735

== ENCOUNTER → 2017-08-28 | Outpatient (REF) | payer MEDICARE ==
[2017-08-28 10:43] LABS: BASO % 0.2 % (0.0-1.0); EOS % 0.1 % (0.0-3.0); HEMATOCRIT 28.2 % (36.0-47.0); IMMATURE GRANULOCYTE % 0.4 % (0-3.0); LYMPH # 0.4 10^3/uL (1.5-4.5); LYMPH % 4.1 % (24.0-44.0); MEAN CORPUSCULAR HEMOGLOBIN 27.7 pg (27.0-33.0); MEAN CORPUSCULAR HGB CONC 31.9 g/dl (32.0-36.5); MEAN CORPUSCULAR VOLUME 86.8 fl (80.0-96.0); MONO # 0.5 10^3/uL (0.0-0.8); NEUTROPHILS # 9.5 10^3/uL (1.8-7.7); NEUTROPHILS % 90.2 % (36.0-66.0); PLATELET COUNT, AUTOMATED 330 10^3/uL (150-450); RED BLOOD COUNT 3.25 10^6/uL (4.00-5.40); WHITE BLOOD COUNT 10.5 10^3/uL (4.0-10.0)
[2017-08-28 10:54] LABS: ALBUMIN 1.9 GM/DL (3.2-5.2); ALBUMIN/GLOBULIN RATIO 0.41 (1.00-1.93); ALKALINE PHOSPHATASE 188 U/L (45-117); ALT/SGPT 15 U/L (12-78); ANION GAP 7 MEQ/L (8-16); AST/SGOT 15 U/L (7-37); BILIRUBIN,DIRECT 0.3 MG/DL (0.0-0.2); BILIRUBIN,TOTAL 0.5 MG/DL (0.2-1.0); BLOOD UREA NITROGEN 36 MG/DL (7-18); CALCIUM LEVEL 8.2 MG/DL (8.8-10.2); CARBON DIOXIDE LEVEL 27 MEQ/L (21-32); CHLORIDE LEVEL 105 MEQ/L (98-107); CREATININE FOR GFR 0.82 MG/DL (0.55-1.30); GLOMERULAR FILTRATION RATE > 60.0 (>39); GLUCOSE, FASTING 89 MG/DL (70-100); MAGNESIUM LEVEL 2.1 MG/DL (1.8-2.4); PHOSPHORUS LEVEL 3.4 MG/DL (2.5-4.9); POTASSIUM SERUM 4.1 MEQ/L (3.5-5.1); SODIUM LEVEL 139 MEQ/L (136-145); TOTAL PROTEIN 6.5 GM/DL (6.4-8.2)
[2017-08-28 11:00] LABS: PREALBUMIN 16.3 MG/DL (20.0-40.0)
[2017-08-30 08:06] LABS: CHROMIUM PLASMA 3.5 ug/L (0.1-2.1)
[2017-08-30 08:06] LABS: COPPER PLASMA 111 ug/dL (72-166); SELENIUM LEVEL BLOOD 50 ug/L (100-340); ZINC PLASMA 60 ug/dL (56-134)
== END ==
LOC: M SHH 10:15
DX: K50.813 Crohn's disease of both small and large intestine with fistula (principal); E44.0 Moderate protein-calorie malnutrition; K65.1 Peritoneal abscess
CPT/HCPCS: 82525

== ENCOUNTER → 2017-08-31 | Outpatient (CLI) | payer MEDICARE ==
[~2017-08-31] MED LIST changes: -GLUCAGON FOR INJ 1 MG VIAL (J1610) As Ordered; -VoLumen 0.1% SUSPENSION 450ML BOTTLE As Ordered
== END ==
LOC: M RAD 13:47
DX: K65.1 Peritoneal abscess (principal); K50.814 Crohn's disease of both small and large intestine with abscess; K63.2 Fistula of intestine; Z90.49 Acquired absence of other specified parts of digestive tract; Z93.2 Ileostomy status
CPT/HCPCS: Q9963

== ENCOUNTER → 2017-09-04 | Outpatient (REF) | payer MEDICARE ==
[2017-09-04 16:01] LABS: ALBUMIN/GLOBULIN RATIO 0.42 (1.00-1.93); ALKALINE PHOSPHATASE 214 U/L (45-117); ALT/SGPT 24 U/L (12-78); ANION GAP 7 MEQ/L (8-16); AST/SGOT 20 U/L (7-37); BILIRUBIN,DIRECT 0.2 MG/DL (0.0-0.2); BILIRUBIN,TOTAL 0.4 MG/DL (0.2-1.0); BLOOD UREA NITROGEN 41 MG/DL (7-18); CARBON DIOXIDE LEVEL 29 MEQ/L (21-32); CHLORIDE LEVEL 102 MEQ/L (98-107); CREATININE FOR GFR 0.87 MG/DL (0.55-1.30); GLOMERULAR FILTRATION RATE > 60.0 (>39); GLUCOSE, FASTING 66 MG/DL (70-100); MAGNESIUM LEVEL 2.1 MG/DL (1.8-2.4); POTASSIUM SERUM 3.9 MEQ/L (3.5-5.1); SODIUM LEVEL 138 MEQ/L (136-145); TOTAL PROTEIN 6.8 GM/DL (6.4-8.2)
[2017-09-04 16:02] LABS: BASO % 0.1 % (0.0-1.0); EOS % 0.5 % (0.0-3.0); HEMATOCRIT 30.2 % (36.0-47.0); HEMOGLOBIN 9.4 g/dl (12.0-15.5); IMMATURE GRANULOCYTE % 0.7 % (0-3.0); LYMPH # 0.4 10^3/uL (1.5-4.5); LYMPH % 5.3 % (24.0-44.0); MEAN CORPUSCULAR HEMOGLOBIN 27.5 pg (27.0-33.0); MEAN CORPUSCULAR HGB CONC 31.1 g/dl (32.0-36.5); MEAN CORPUSCULAR VOLUME 88.3 fl (80.0-96.0); MONO # 0.6 10^3/uL (0.0-0.8); NEUTROPHILS # 7.2 10^3/uL (1.8-7.7); NEUTROPHILS % 86.4 % (36.0-66.0); PLATELET COUNT, AUTOMATED 323 10^3/uL (150-450); RED BLOOD COUNT 3.42 10^6/uL (4.00-5.40); RED CELL DISTRIBUTION WIDTH 15.6 % (11.5-14.5); WHITE BLOOD COUNT 8.3 10^3/uL (4.0-10.0)
== END ==
LOC: M SHH 15:30
DX: K50.814 Crohn's disease of both small and large intestine with abscess (principal); E44.0 Moderate protein-calorie malnutrition; K65.1 Peritoneal abscess
CPT/HCPCS: 83735

== ENCOUNTER → 2017-09-11 | Outpatient (REF) | payer MEDICARE ==
[2017-09-11 12:07] LABS: BASO % 0.3 % (0.0-1.0); EOS # 0.1 10^3/uL (0.0-0.50); EOS % 0.6 % (0.0-3.0); HEMATOCRIT 30.3 % (36.0-47.0); HEMOGLOBIN 9.8 g/dl (12.0-15.5); IMMATURE GRANULOCYTE % 0.6 % (0-3.0); LYMPH # 0.4 10^3/uL (1.5-4.5); LYMPH % 4.3 % (24.0-44.0); MEAN CORPUSCULAR HEMOGLOBIN 27.8 pg (27.0-33.0); MEAN CORPUSCULAR HGB CONC 32.3 g/dl (32.0-36.5); MEAN CORPUSCULAR VOLUME 86.1 fl (80.0-96.0); MONO # 0.6 10^3/uL (0.0-0.8); MONO % 6.1 % (0.0-5.0); NEUTROPHILS # 8.4 10^3/uL (1.8-7.7); NEUTROPHILS % 88.1 % (36.0-66.0); PLATELET COUNT, AUTOMATED 335 10^3/uL (150-450); RED BLOOD COUNT 3.52 10^6/uL (4.00-5.40); RED CELL DISTRIBUTION WIDTH 15.6 % (11.5-14.5); WHITE BLOOD COUNT 9.5 10^3/uL (4.0-10.0)
[2017-09-11 12:42] LABS: ALBUMIN/GLOBULIN RATIO 0.43 (1.00-1.93); ALKALINE PHOSPHATASE 311 U/L (45-117); ALT/SGPT 32 U/L (12-78); ANION GAP 8 MEQ/L (8-16); AST/SGOT 25 U/L (7-37); BILIRUBIN,DIRECT 0.3 MG/DL (0.0-0.2); BILIRUBIN,TOTAL 0.5 MG/DL (0.2-1.0); BLOOD UREA NITROGEN 41 MG/DL (7-18); CALCIUM LEVEL 8.4 MG/DL (8.8-10.2); CARBON DIOXIDE LEVEL 29 MEQ/L (21-32); CHLORIDE LEVEL 101 MEQ/L (98-107); CREATININE FOR GFR 0.91 MG/DL (0.55-1.30); GLOMERULAR FILTRATION RATE > 60.0 (>39); GLUCOSE, FASTING 76 MG/DL (70-100); MAGNESIUM LEVEL 2.1 MG/DL (1.8-2.4); POTASSIUM SERUM 3.9 MEQ/L (3.5-5.1); SODIUM LEVEL 138 MEQ/L (136-145); TOTAL PROTEIN 6.7 GM/DL (6.4-8.2)
[2017-09-11 14:52] LABS: PREALBUMIN 15.6 MG/DL (20.0-40.0)
== END ==
LOC: M LAB REF 11:27
DX: K65.1 Peritoneal abscess (principal); K50.814 Crohn's disease of both small and large intestine with abscess; E44.0 Moderate protein-calorie malnutrition
CPT/HCPCS: 83735

== ENCOUNTER → 2017-09-11 | Outpatient (REF) | payer MEDICARE ==
[2017-09-14 13:20] LABS: URIC ACID 5.8 MG/DL (2.6-6.0)
[2017-09-14 19:25] LABS: PTH INTACT 33.1 PG/ML (18.5-88.0)
== END ==
LOC: M SHH 09-14 12:15
DX: M10.9 Gout, unspecified (principal); N25.81 Secondary hyperparathyroidism of renal origin
CPT/HCPCS: 84550

== ENCOUNTER → 2017-09-13 | Outpatient (CLI) | payer MEDICARE | LOC: M ADAMS 09:14 | DX: M25.78 Osteophyte, vertebrae (principal); M54.5 Low back pain; M54.6 Pain in thoracic spine | CPT/HCPCS: 72100 ==

== ENCOUNTER → 2017-09-19 | Outpatient (REF) | payer MEDICARE ==
[2017-09-19 11:28] LABS: BASO % 0.3 % (0.0-1.0); EOS # 0.1 10^3/uL (0.0-0.50); EOS % 0.5 % (0.0-3.0); HEMATOCRIT 28.3 % (36.0-47.0); IMMATURE GRANULOCYTE % 0.5 % (0-3.0); LYMPH # 0.5 10^3/uL (1.5-4.5); LYMPH % 4.3 % (24.0-44.0); MEAN CORPUSCULAR HEMOGLOBIN 27.1 pg (27.0-33.0); MEAN CORPUSCULAR HGB CONC 31.8 g/dl (32.0-36.5); MEAN CORPUSCULAR VOLUME 85.2 fl (80.0-96.0); MONO # 0.8 10^3/uL (0.0-0.8); NEUTROPHILS # 9.8 10^3/uL (1.8-7.7); NEUTROPHILS % 87.4 % (36.0-66.0); PLATELET COUNT, AUTOMATED 293 10^3/uL (150-450); RED BLOOD COUNT 3.32 10^6/uL (4.00-5.40); RED CELL DISTRIBUTION WIDTH 15.6 % (11.5-14.5); WHITE BLOOD COUNT 11.2 10^3/uL (4.0-10.0)
[2017-09-19 11:48] LABS: ALBUMIN 1.8 GM/DL (3.2-5.2); ALBUMIN/GLOBULIN RATIO 0.38 (1.00-1.93); ALKALINE PHOSPHATASE 442 U/L (45-117); ALT/SGPT 44 U/L (12-78); ANION GAP 9 MEQ/L (8-16); AST/SGOT 35 U/L (7-37); BILIRUBIN,DIRECT 0.5 MG/DL (0.0-0.2); BILIRUBIN,TOTAL 0.8 MG/DL (0.2-1.0); BLOOD UREA NITROGEN 39 MG/DL (7-18); CALCIUM LEVEL 8.4 MG/DL (8.8-10.2); CARBON DIOXIDE LEVEL 27 MEQ/L (21-32); CHLORIDE LEVEL 103 MEQ/L (98-107); CREATININE FOR GFR 0.97 MG/DL (0.55-1.30); GLOMERULAR FILTRATION RATE > 60.0 (>39); GLUCOSE, FASTING 81 MG/DL (70-100); MAGNESIUM LEVEL 2.1 MG/DL (1.8-2.4); PHOSPHORUS LEVEL 4.2 MG/DL (2.5-4.9); POTASSIUM SERUM 3.8 MEQ/L (3.5-5.1); SODIUM LEVEL 139 MEQ/L (136-145); TOTAL PROTEIN 6.5 GM/DL (6.4-8.2)
== END ==
LOC: M SHH 11:13
DX: K65.1 Peritoneal abscess (principal); K50.814 Crohn's disease of both small and large intestine with abscess; E44.0 Moderate protein-calorie malnutrition

== ENCOUNTER 2017-09-20 12:29 | Inpatient (IN) | payer MEDICARE ==
[2017-09-20] MEDS: HYDROCORTISONE 100 MG/2 ML VIAL (J1720) IV (13:00)
[2017-09-20] MEDS ORDERED: ISOVUE-370 76% 100ML VIAL (Q9967) As Ordered (15:27)
[2017-09-20 17:49] LABS: ALBUMIN/GLOBULIN RATIO 0.37 (1.00-1.93); ALKALINE PHOSPHATASE 542 U/L (45-117); ALT/SGPT 53 U/L (12-78); ANION GAP 8 MEQ/L (8-16); AST/SGOT 52 U/L (7-37); BILIRUBIN,TOTAL 1.1 MG/DL (0.2-1.0); BLOOD UREA NITROGEN 41 MG/DL (7-18); CALCIUM LEVEL 8.6 MG/DL (8.8-10.2); CARBON DIOXIDE LEVEL 26 MEQ/L (21-32); CHLORIDE LEVEL 98 MEQ/L (98-107); CREATININE FOR GFR 1.04 MG/DL (0.55-1.30); GLOMERULAR FILTRATION RATE 55.8 (>39); GLUCOSE, FASTING 167 MG/DL (70-100); POTASSIUM SERUM 4.3 MEQ/L (3.5-5.1); SODIUM LEVEL 132 MEQ/L (136-145); TOTAL PROTEIN 7.4 GM/DL (6.4-8.2)
[2017-09-20] MEDS: HYDROCORTISONE 5MG TABLET PO (20:34)
[2017-09-20] MEDS: NORCO, ANEXSIA 5/325MG TABLET (HYDROcodone/ACETAMINOPHEN) PO (20:34)
[2017-09-21 03:41] LABS: BASO % 0.3 % (0.0-1.0); EOS % 0.1 % (0.0-3.0); HEMATOCRIT 34.1 % (36.0-47.0); HEMOGLOBIN 10.4 g/dl (12.0-15.5); IMMATURE GRANULOCYTE % 0.4 % (0-3.0); LYMPH # 0.3 10^3/uL (1.5-4.5); LYMPH % 1.9 % (24.0-44.0); MEAN CORPUSCULAR HEMOGLOBIN 27.4 pg (27.0-33.0); MEAN CORPUSCULAR HGB CONC 30.5 g/dl (32.0-36.5); MONO # 0.6 10^3/uL (0.0-0.8); MONO % 3.7 % (0.0-5.0); NEUTROPHILS # 14.8 10^3/uL (1.8-7.7); NEUTROPHILS % 93.6 % (36.0-66.0); PLATELET COUNT, AUTOMATED 340 10^3/uL (150-450); RED BLOOD COUNT 3.79 10^6/uL (4.00-5.40); WHITE BLOOD COUNT 15.8 10^3/uL (4.0-10.0)
[2017-09-21 06:48] LABS: HEMATOCRIT 29.2 % (36.0-47.0); HEMOGLOBIN 9.4 g/dl (12.0-15.5); MEAN CORPUSCULAR HEMOGLOBIN 27.2 pg (27.0-33.0); MEAN CORPUSCULAR HGB CONC 32.2 g/dl (32.0-36.5); MEAN CORPUSCULAR VOLUME 84.4 fl (80.0-96.0); PLATELET COUNT, AUTOMATED 297 10^3/uL (150-450); RED BLOOD COUNT 3.46 10^6/uL (4.00-5.40); RED CELL DISTRIBUTION WIDTH 15.7 % (11.5-14.5); WHITE BLOOD COUNT 13.2 10^3/uL (4.0-10.0)
[2017-09-21 07:05] LABS: ANION GAP 7 MEQ/L (8-16); BLOOD UREA NITROGEN 37 MG/DL (7-18); CALCIUM LEVEL 9.1 MG/DL (8.8-10.2); CARBON DIOXIDE LEVEL 28 MEQ/L (21-32); CHLORIDE LEVEL 101 MEQ/L (98-107); GLOMERULAR FILTRATION RATE 52.3 (>39); GLUCOSE, FASTING 87 MG/DL (70-100); POTASSIUM SERUM 3.6 MEQ/L (3.5-5.1); SODIUM LEVEL 136 MEQ/L (136-145)
[2017-09-21] MEDS ORDERED: SODIUM CHLORIDE 0.9% INJ 10 ML SYR IV (08:15)
[2017-09-21] MEDS: HYDROCORTISONE 5MG TABLET PO ×2 (08:19→19:08)
[2017-09-21 08:41] LABS: APPEARANCE, URINE CLOUDY (CLEAR); BACTERIA, URINE AUTO 1+ (NEGATIVE); BILIRUBIN, URINE AUTO NEGATIVE (NEGATIVE); BLOOD, URINE BLOOD 2+ (NEGATIVE); COLOR, URINE YELLOW (YELLOW); GLUCOSE, URINE (UA) AUTO NEGATIVE (NEGATIVE); KETONE, URINE AUTO NEGATIVE (NEGATIVE); LEUKOCYTE ESTERASE, URINE AUTO 3+ (NEGATIVE); MUCUS, URINE SMALL (NEGATIVE); NITRITE, URINE AUTO NEGATIVE (NEGATIVE); PROTEIN, URINE AUTO 2+ mg/dL (NEGATIVE); RBC, URINE AUTO 12 /HPF (0-3); SPECIFIC GRAVITY URINE AUTO 1.033 (1.002-1.035); SQUAMOUS EPITHELIAL CELL UR AU 1 /HPF (0-6); UROBILINOGEN, URINE AUTO 0.2 mg/dL (0.0-2.0); WBC, URINE AUTO TNTC /HPF (0-3)
[2017-09-21] MEDS: TPN IV (11:06)
[2017-09-21] MEDS: [UNRECOGNIZED DRUG - OTHER] IV (11:06)
[2017-09-21] MEDS: PIPERACILLIN/TAZOBACTAM SOD 3.375 GM in D5W MINI-BAG PLUS 50 ML IV ×2 (12:03→19:08)
[2017-09-21] MEDS: NORCO, ANEXSIA 5/325MG TABLET (HYDROcodone/ACETAMINOPHEN) PO ×2 (15:12→21:26)
[2017-09-21] MEDS: SODIUM CHLORIDE 0.9% INJ 10 ML SYR IV (19:08)
[2017-09-21] MEDS: ONDANSETRON 4MG/2ML VIAL (J2405) IV (22:42)
[2017-09-22] MEDS: PIPERACILLIN/TAZOBACTAM SOD 3.375 GM in D5W MINI-BAG PLUS 50 ML IV ×3 (02:56→20:18)
[2017-09-22] MEDS: [UNRECOGNIZED DRUG - OTHER] IV (02:56)
[2017-09-22] MEDS: TPN IV (02:56)
[2017-09-22] MEDS: SODIUM CHLORIDE 0.9% INJ 10 ML SYR IV ×2 (05:42→18:00)
[2017-09-22 05:51] LABS: ANION GAP 6 MEQ/L (8-16); BLOOD UREA NITROGEN 45 MG/DL (7-18); C REACTIVE PROTEIN QUANTITATIV 9.18 MG/DL (0.00-0.30); CALCIUM LEVEL 8.1 MG/DL (8.8-10.2); CARBON DIOXIDE LEVEL 29 MEQ/L (21-32); CHLORIDE LEVEL 99 MEQ/L (98-107); CREATININE FOR GFR 1.29 MG/DL (0.55-1.30); GLOMERULAR FILTRATION RATE 43.5 (>39); GLUCOSE, FASTING 169 MG/DL (70-100); HEMATOCRIT 26.9 % (36.0-47.0); HEMOGLOBIN 8.6 g/dl (12.0-15.5); MEAN CORPUSCULAR HEMOGLOBIN 27.3 pg (27.0-33.0); MEAN CORPUSCULAR VOLUME 85.4 fl (80.0-96.0); PLATELET COUNT, AUTOMATED 294 10^3/uL (150-450); POTASSIUM SERUM 3.2 MEQ/L (3.5-5.1); RED BLOOD COUNT 3.15 10^6/uL (4.00-5.40); RED CELL DISTRIBUTION WIDTH 15.4 % (11.5-14.5); SODIUM LEVEL 134 MEQ/L (136-145)
[2017-09-22] MEDS: ENOXAPARIN 40 MG/0.4 ML SYRINGE (J1650) SC (09:00)
[2017-09-22] MEDS: KCL 40MEQ in NS 1000ML 1,000 ML IV ×2 (09:41→20:18)
[2017-09-22] MEDS: HYDROCORTISONE 5MG TABLET PO ×2 (09:41→20:18)
[2017-09-22] MEDS: NORCO, ANEXSIA 5/325MG TABLET (HYDROcodone/ACETAMINOPHEN) PO ×2 (13:26→18:49)
[2017-09-23] MEDS: PIPERACILLIN/TAZOBACTAM SOD 3.375 GM in D5W MINI-BAG PLUS 50 ML IV ×3 (03:30→20:17)
[2017-09-23] MEDS: KCL 40MEQ in NS 1000ML 1,000 ML IV ×3 (03:30→21:25)
[2017-09-23] MEDS: [UNRECOGNIZED DRUG - OTHER] IV (03:31)
[2017-09-23] MEDS: TPN IV (03:31)
[2017-09-23] MEDS: SODIUM CHLORIDE 0.9% INJ 10 ML SYR IV ×3 (04:44→17:06)
[2017-09-23] MEDS: NORCO, ANEXSIA 5/325MG TABLET (HYDROcodone/ACETAMINOPHEN) PO ×2 (04:45→19:48)
[2017-09-23 05:03] LABS: HEMATOCRIT 26.1 % (36.0-47.0); HEMOGLOBIN 8.3 g/dl (12.0-15.5); MEAN CORPUSCULAR HEMOGLOBIN 27.3 pg (27.0-33.0); MEAN CORPUSCULAR HGB CONC 31.8 g/dl (32.0-36.5); MEAN CORPUSCULAR VOLUME 85.9 fl (80.0-96.0); PLATELET COUNT, AUTOMATED 257 10^3/uL (150-450); RED BLOOD COUNT 3.04 10^6/uL (4.00-5.40); RED CELL DISTRIBUTION WIDTH 15.6 % (11.5-14.5)
[2017-09-23 06:16] LABS: ANION GAP 10 MEQ/L (8-16); BLOOD UREA NITROGEN 37 MG/DL (7-18); C REACTIVE PROTEIN QUANTITATIV 8.09 MG/DL (0.00-0.30); CALCIUM LEVEL 7.9 MG/DL (8.8-10.2); CARBON DIOXIDE LEVEL 25 MEQ/L (21-32); CHLORIDE LEVEL 105 MEQ/L (98-107); CREATININE FOR GFR 1.16 MG/DL (0.55-1.30); GLOMERULAR FILTRATION RATE 49.2 (>39); GLUCOSE, FASTING 75 MG/DL (70-100); POTASSIUM SERUM 3.8 MEQ/L (3.5-5.1); SODIUM LEVEL 140 MEQ/L (136-145)
[2017-09-23] MEDS: HYDROCORTISONE 5MG TABLET PO ×2 (08:20→21:24)
[2017-09-23] MEDS: ENOXAPARIN 40 MG/0.4 ML SYRINGE (J1650) SC (08:21)
[2017-09-23] MEDS: ONDANSETRON 4MG/2ML VIAL (J2405) IV (23:32)
[2017-09-24] MEDS: TPN IV (03:12)
[2017-09-24] MEDS: [UNRECOGNIZED DRUG - OTHER] IV (03:12)
[2017-09-24] MEDS: PIPERACILLIN/TAZOBACTAM SOD 3.375 GM in D5W MINI-BAG PLUS 50 ML IV ×3 (03:12→20:19)
[2017-09-24] MEDS: SODIUM CHLORIDE 0.9% INJ 10 ML SYR IV ×2 (05:20→17:56)
[2017-09-24 05:38] LABS: HEMATOCRIT 25.9 % (36.0-47.0); HEMOGLOBIN 7.9 g/dl (12.0-15.5); MEAN CORPUSCULAR HEMOGLOBIN 26.6 pg (27.0-33.0); MEAN CORPUSCULAR HGB CONC 30.5 g/dl (32.0-36.5); MEAN CORPUSCULAR VOLUME 87.2 fl (80.0-96.0); PLATELET COUNT, AUTOMATED 261 10^3/uL (150-450); RED BLOOD COUNT 2.97 10^6/uL (4.00-5.40); RED CELL DISTRIBUTION WIDTH 15.5 % (11.5-14.5); WHITE BLOOD COUNT 10.9 10^3/uL (4.0-10.0)
[2017-09-24 05:59] LABS: ANION GAP 7 MEQ/L (8-16); BLOOD UREA NITROGEN 35 MG/DL (7-18); C REACTIVE PROTEIN QUANTITATIV 7.23 MG/DL (0.00-0.30); CALCIUM LEVEL 7.9 MG/DL (8.8-10.2); CARBON DIOXIDE LEVEL 23 MEQ/L (21-32); CHLORIDE LEVEL 111 MEQ/L (98-107); GLOMERULAR FILTRATION RATE 52.3 (>39); GLUCOSE, FASTING 75 MG/DL (70-100); SODIUM LEVEL 141 MEQ/L (136-145)
[2017-09-24] MEDS: ENOXAPARIN 40 MG/0.4 ML SYRINGE (J1650) SC (09:07)
[2017-09-24] MEDS: HYDROCORTISONE 5MG TABLET PO ×2 (09:08→20:20)
[2017-09-24] MEDS: KCL 40MEQ in NS 1000ML 1,000 ML IV ×2 (09:08→18:01)
[2017-09-24] MEDS: NORCO, ANEXSIA 5/325MG TABLET (HYDROcodone/ACETAMINOPHEN) PO ×2 (10:09→18:02)
[2017-09-25] MEDS: TPN IV (03:20)
[2017-09-25] MEDS: [UNRECOGNIZED DRUG - OTHER] IV (03:20)
[2017-09-25] MEDS: KCL 40MEQ in NS 1000ML 1,000 ML IV ×2 (05:03→14:19)
[2017-09-25] MEDS: PIPERACILLIN/TAZOBACTAM SOD 3.375 GM in D5W MINI-BAG PLUS 50 ML IV ×3 (05:03→20:20)
[2017-09-25] MEDS: SODIUM CHLORIDE 0.9% INJ 10 ML SYR IV ×2 (05:04→18:40)
[2017-09-25 05:16] LABS: HEMATOCRIT 25.6 % (36.0-47.0); MEAN CORPUSCULAR HEMOGLOBIN 27.2 pg (27.0-33.0); MEAN CORPUSCULAR HGB CONC 31.3 g/dl (32.0-36.5); MEAN CORPUSCULAR VOLUME 87.1 fl (80.0-96.0); PLATELET COUNT, AUTOMATED 253 10^3/uL (150-450); RED BLOOD COUNT 2.94 10^6/uL (4.00-5.40); RED CELL DISTRIBUTION WIDTH 15.9 % (11.5-14.5); WHITE BLOOD COUNT 10.6 10^3/uL (4.0-10.0)
[2017-09-25 05:49] LABS: ANION GAP 9 MEQ/L (8-16); BLOOD UREA NITROGEN 31 MG/DL (7-18); C REACTIVE PROTEIN QUANTITATIV 7.96 MG/DL (0.00-0.30); CALCIUM LEVEL 8.2 MG/DL (8.8-10.2); CARBON DIOXIDE LEVEL 22 MEQ/L (21-32); CHLORIDE LEVEL 113 MEQ/L (98-107); CREATININE FOR GFR 1.09 MG/DL (0.55-1.30); GLOMERULAR FILTRATION RATE 52.8 (>39); GLUCOSE, FASTING 70 MG/DL (70-100); POTASSIUM SERUM 4.4 MEQ/L (3.5-5.1); SODIUM LEVEL 144 MEQ/L (136-145)
[2017-09-25] MEDS: NORCO, ANEXSIA 5/325MG TABLET (HYDROcodone/ACETAMINOPHEN) PO ×2 (07:13→14:19)
[2017-09-25] MEDS: HYDROCORTISONE 5MG TABLET PO ×2 (08:40→20:20)
[2017-09-25] MEDS: IRON SUCROSE 500 MG in NS 250 ML IV (14:19)
[2017-09-26] MEDS: PIPERACILLIN/TAZOBACTAM SOD 3.375 GM in D5W MINI-BAG PLUS 50 ML IV ×2 (03:15→11:19)
[2017-09-26] MEDS: KCL 40MEQ in NS 1000ML 1,000 ML IV ×2 (03:15→09:51)
[2017-09-26] MEDS: TPN IV (03:15)
[2017-09-26] MEDS: [UNRECOGNIZED DRUG - OTHER] IV (03:15)
[2017-09-26] MEDS: SODIUM CHLORIDE 0.9% INJ 10 ML SYR IV ×2 (05:56→15:15)
[2017-09-26 06:10] LABS: HEMATOCRIT 25.1 % (36.0-47.0); HEMOGLOBIN 7.9 g/dl (12.0-15.5); MEAN CORPUSCULAR HEMOGLOBIN 27.4 pg (27.0-33.0); MEAN CORPUSCULAR HGB CONC 31.5 g/dl (32.0-36.5); MEAN CORPUSCULAR VOLUME 87.2 fl (80.0-96.0); PLATELET COUNT, AUTOMATED 244 10^3/uL (150-450); RED BLOOD COUNT 2.88 10^6/uL (4.00-5.40); RED CELL DISTRIBUTION WIDTH 15.9 % (11.5-14.5); WHITE BLOOD COUNT 7.7 10^3/uL (4.0-10.0)
[2017-09-26 06:37] LABS: ANION GAP 7 MEQ/L (8-16); BLOOD UREA NITROGEN 30 MG/DL (7-18); CALCIUM LEVEL 8.1 MG/DL (8.8-10.2); CARBON DIOXIDE LEVEL 24 MEQ/L (21-32); CHLORIDE LEVEL 111 MEQ/L (98-107); CREATININE FOR GFR 0.99 MG/DL (0.55-1.30); GLUCOSE, FASTING 71 MG/DL (70-100); SODIUM LEVEL 142 MEQ/L (136-145)
[2017-09-26] MEDS: HYDROCORTISONE 5MG TABLET PO (08:15)
[2017-09-26] MEDS: NORCO, ANEXSIA 5/325MG TABLET (HYDROcodone/ACETAMINOPHEN) PO ×2 (08:16→11:54)
[2017-09-26] MEDS: ONDANSETRON 4MG/2ML VIAL (J2405) IV (09:08)
== END 2017-09-26 15:45 | disposition home or self-care (01) | DRG 386 ==
LOC: M MS5PR 12:29
PROC: 02HV33Z Insertion of Infusion Device into Superior Vena Cava, Percutaneous Approach (ICD-10-PCS; principal; 2017-09-22)
DX: K50.913 Crohn's disease, unspecified, with fistula (principal); N82.4 Other female intestinal-genital tract fistulae; E46 Unspecified protein-calorie malnutrition; E27.40 Unspecified adrenocortical insufficiency; D63.8 Anemia in other chronic diseases classified elsewhere; F43.21 Adjustment disorder with depressed mood; Z95.828 Presence of other vascular implants and grafts; Z90.49 Acquired absence of other specified parts of digestive tract; Z93.2 Ileostomy status; Z88.2 Allergy status to sulfonamides; Z88.8 Allergy status to other drugs, medicaments and biological substances

== ENCOUNTER → 2017-10-03 | Outpatient (REF) | payer MEDICARE ==
[2017-10-03 14:04] LABS: BASO % 0.1 % (0.0-1.0); EOS # 0.1 10^3/uL (0.0-0.50); EOS % 0.9 % (0.0-3.0); HEMATOCRIT 26.5 % (36.0-47.0); HEMOGLOBIN 8.2 g/dl (12.0-15.5); IMMATURE GRANULOCYTE % 0.6 % (0-3.0); LYMPH # 0.4 10^3/uL (1.5-4.5); MEAN CORPUSCULAR HEMOGLOBIN 27.5 pg (27.0-33.0); MEAN CORPUSCULAR HGB CONC 30.9 g/dl (32.0-36.5); MEAN CORPUSCULAR VOLUME 88.9 fl (80.0-96.0); MONO # 0.6 10^3/uL (0.0-0.8); MONO % 6.9 % (0.0-5.0); NEUTROPHILS # 7.3 10^3/uL (1.8-7.7); NEUTROPHILS % 86.5 % (36.0-66.0); PLATELET COUNT, AUTOMATED 303 10^3/uL (150-450); RED BLOOD COUNT 2.98 10^6/uL (4.00-5.40); RED CELL DISTRIBUTION WIDTH 17.6 % (11.5-14.5); WHITE BLOOD COUNT 8.4 10^3/uL (4.0-10.0)
[2017-10-03 14:40] LABS: ALBUMIN 1.7 GM/DL (3.2-5.2); ALBUMIN/GLOBULIN RATIO 0.33 (1.00-1.93); ALKALINE PHOSPHATASE 568 U/L (45-117); ALT/SGPT 48 U/L (12-78); ANION GAP 9 MEQ/L (8-16); AST/SGOT 41 U/L (7-37); BILIRUBIN,DIRECT 0.3 MG/DL (0.0-0.2); BILIRUBIN,TOTAL 0.5 MG/DL (0.2-1.0); BLOOD UREA NITROGEN 38 MG/DL (7-18); CALCIUM LEVEL 8.4 MG/DL (8.8-10.2); CARBON DIOXIDE LEVEL 27 MEQ/L (21-32); CHLORIDE LEVEL 104 MEQ/L (98-107); CREATININE FOR GFR 0.88 MG/DL (0.55-1.30); GLOMERULAR FILTRATION RATE > 60.0 (>39); GLUCOSE, FASTING 57 MG/DL (70-100); MAGNESIUM LEVEL 2.2 MG/DL (1.8-2.4); PREALBUMIN 13.6 MG/DL (20.0-40.0); SODIUM LEVEL 140 MEQ/L (136-145); TOTAL PROTEIN 6.8 GM/DL (6.4-8.2)
== END ==
LOC: M SHH 13:45
DX: N18.3 Chronic kidney disease, stage 3 (moderate) (principal); D63.1 Anemia in chronic kidney disease; E83.42 Hypomagnesemia; K65.1 Peritoneal abscess; K50.814 Crohn's disease of both small and large intestine with abscess; E44.0 Moderate protein-calorie malnutrition
CPT/HCPCS: 83735

== ENCOUNTER → 2017-10-03 | Outpatient (REF) | payer MEDICARE ==
[2017-10-03 14:13] LABS: HEMATOCRIT 26.7 % (36.0-47.0); HEMOGLOBIN 8.3 g/dl (12.0-15.5); MEAN CORPUSCULAR HEMOGLOBIN 27.7 pg (27.0-33.0); MEAN CORPUSCULAR HGB CONC 31.1 g/dl (32.0-36.5); PLATELET COUNT, AUTOMATED 304 10^3/uL (150-450); RED CELL DISTRIBUTION WIDTH 17.5 % (11.5-14.5); WHITE BLOOD COUNT 8.3 10^3/uL (4.0-10.0)
[2017-10-03 14:39] LABS: ALBUMIN 1.7 GM/DL (3.2-5.2); ALBUMIN/GLOBULIN RATIO 0.33 (1.00-1.93); ALKALINE PHOSPHATASE 561 U/L (45-117); ALT/SGPT 48 U/L (12-78); ANION GAP 7 MEQ/L (8-16); AST/SGOT 41 U/L (7-37); BILIRUBIN,TOTAL 0.5 MG/DL (0.2-1.0); BLOOD UREA NITROGEN 39 MG/DL (7-18); CALCIUM LEVEL 8.5 MG/DL (8.8-10.2); CARBON DIOXIDE LEVEL 27 MEQ/L (21-32); CHLORIDE LEVEL 105 MEQ/L (98-107); GLOMERULAR FILTRATION RATE > 60.0 (>39); GLUCOSE, FASTING 56 MG/DL (70-100); SODIUM LEVEL 139 MEQ/L (136-145); TOTAL PROTEIN 6.9 GM/DL (6.4-8.2)
== END ==
LOC: M SHH 13:49
DX: N18.3 Chronic kidney disease, stage 3 (moderate) (principal); D63.1 Anemia in chronic kidney disease; E83.42 Hypomagnesemia

== ENCOUNTER → 2017-10-09 | Outpatient (REF) | payer MEDICARE ==
[2017-10-09 12:26] LABS: BASO % 0.2 % (0.0-1.0); EOS % 0.3 % (0.0-3.0); HEMATOCRIT 26.3 % (36.0-47.0); HEMOGLOBIN 8.3 g/dl (12.0-15.5); IMMATURE GRANULOCYTE % 0.7 % (0-3.0); LYMPH # 0.4 10^3/uL (1.5-4.5); LYMPH % 4.2 % (24.0-44.0); MEAN CORPUSCULAR HEMOGLOBIN 28.2 pg (27.0-33.0); MEAN CORPUSCULAR HGB CONC 31.6 g/dl (32.0-36.5); MEAN CORPUSCULAR VOLUME 89.5 fl (80.0-96.0); MONO # 0.7 10^3/uL (0.0-0.8); MONO % 7.5 % (0.0-5.0); NEUTROPHILS # 7.9 10^3/uL (1.8-7.7); NEUTROPHILS % 87.1 % (36.0-66.0); PLATELET COUNT, AUTOMATED 293 10^3/uL (150-450); RED BLOOD COUNT 2.94 10^6/uL (4.00-5.40); RED CELL DISTRIBUTION WIDTH 17.6 % (11.5-14.5); WHITE BLOOD COUNT 9.1 10^3/uL (4.0-10.0)
[2017-10-09 12:32] LABS: ALBUMIN 1.7 GM/DL (3.2-5.2); ALBUMIN/GLOBULIN RATIO 0.33 (1.00-1.93); ALKALINE PHOSPHATASE 492 U/L (45-117); ALT/SGPT 43 U/L (12-78); ANION GAP 11 MEQ/L (8-16); AST/SGOT 31 U/L (7-37); BILIRUBIN,DIRECT 0.6 MG/DL (0.0-0.2); BILIRUBIN,TOTAL 0.9 MG/DL (0.2-1.0); BLOOD UREA NITROGEN 41 MG/DL (7-18); CALCIUM LEVEL 8.8 MG/DL (8.8-10.2); CARBON DIOXIDE LEVEL 26 MEQ/L (21-32); CHLORIDE LEVEL 101 MEQ/L (98-107); GLOMERULAR FILTRATION RATE 58.4 (>39); GLUCOSE, FASTING 86 MG/DL (70-100); MAGNESIUM LEVEL 2.1 MG/DL (1.8-2.4); PHOSPHORUS LEVEL 3.7 MG/DL (2.5-4.9); POTASSIUM SERUM 3.9 MEQ/L (3.5-5.1); PREALBUMIN 11.5 MG/DL (20.0-40.0); SODIUM LEVEL 138 MEQ/L (136-145); TOTAL PROTEIN 6.9 GM/DL (6.4-8.2)
== END ==
LOC: M SHH 11:25
DX: K65.1 Peritoneal abscess (principal); K50.814 Crohn's disease of both small and large intestine with abscess; E44.0 Moderate protein-calorie malnutrition
CPT/HCPCS: 83735

== ENCOUNTER → 2017-10-16 | Outpatient (REF) | payer MEDICARE ==
[2017-10-16 14:27] LABS: BASO % 0.2 % (0.0-1.0); EOS % 0.4 % (0.0-3.0); HEMATOCRIT 27.3 % (36.0-47.0); HEMOGLOBIN 8.4 g/dl (12.0-15.5); IMMATURE GRANULOCYTE % 0.9 % (0-3.0); LYMPH # 0.4 10^3/uL (1.5-4.5); MEAN CORPUSCULAR HEMOGLOBIN 27.7 pg (27.0-33.0); MEAN CORPUSCULAR HGB CONC 30.8 g/dl (32.0-36.5); MEAN CORPUSCULAR VOLUME 90.1 fl (80.0-96.0); MONO # 0.6 10^3/uL (0.0-0.8); MONO % 7.5 % (0.0-5.0); NEUTROPHILS # 6.9 10^3/uL (1.8-7.7); PLATELET COUNT, AUTOMATED 346 10^3/uL (150-450); RED BLOOD COUNT 3.03 10^6/uL (4.00-5.40); RED CELL DISTRIBUTION WIDTH 17.2 % (11.5-14.5)
[2017-10-16 15:41] LABS: ALBUMIN 1.6 GM/DL (3.2-5.2); ALBUMIN/GLOBULIN RATIO 0.31 (1.00-1.93); ALKALINE PHOSPHATASE 608 U/L (45-117); ALT/SGPT 74 U/L (12-78); ANION GAP 8 MEQ/L (8-16); AST/SGOT 63 U/L (7-37); BILIRUBIN,DIRECT 0.7 MG/DL (0.0-0.2); BLOOD UREA NITROGEN 44 MG/DL (7-18); CALCIUM LEVEL 7.9 MG/DL (8.8-10.2); CARBON DIOXIDE LEVEL 27 MEQ/L (21-32); CHLORIDE LEVEL 104 MEQ/L (98-107); CREATININE FOR GFR 0.98 MG/DL (0.55-1.30); GLOMERULAR FILTRATION RATE 59.7 (>39); GLUCOSE, FASTING 67 MG/DL (70-100); SODIUM LEVEL 139 MEQ/L (136-145); TOTAL PROTEIN 6.7 GM/DL (6.4-8.2)
[2017-10-16 21:11] LABS: PREALBUMIN 10.8 MG/DL (20.0-40.0)
== END ==
LOC: M LAB REF 12:28
DX: K50.814 Crohn's disease of both small and large intestine with abscess (principal); K65.1 Peritoneal abscess; E44.0 Moderate protein-calorie malnutrition
CPT/HCPCS: 83735

== ENCOUNTER → 2017-10-23 | Outpatient (REF) | payer MEDICARE ==
[2017-10-23 10:51] LABS: BASO % 0.2 % (0.0-1.0); EOS % 0.3 % (0.0-3.0); HEMATOCRIT 27.7 % (36.0-47.0); HEMOGLOBIN 8.8 g/dl (12.0-15.5); IMMATURE GRANULOCYTE % 0.5 % (0-3.0); LYMPH # 0.5 10^3/uL (1.5-4.5); LYMPH % 4.8 % (24.0-44.0); MEAN CORPUSCULAR HEMOGLOBIN 28.5 pg (27.0-33.0); MEAN CORPUSCULAR HGB CONC 31.8 g/dl (32.0-36.5); MEAN CORPUSCULAR VOLUME 89.6 fl (80.0-96.0); MONO # 0.8 10^3/uL (0.0-0.8); MONO % 7.8 % (0.0-5.0); NEUTROPHILS # 8.8 10^3/uL (1.8-7.7); NEUTROPHILS % 86.4 % (36.0-66.0); PLATELET COUNT, AUTOMATED 371 10^3/uL (150-450); RED BLOOD COUNT 3.09 10^6/uL (4.00-5.40); RED CELL DISTRIBUTION WIDTH 17.1 % (11.5-14.5); WHITE BLOOD COUNT 10.2 10^3/uL (4.0-10.0)
[2017-10-23 11:07] LABS: ALBUMIN 1.6 GM/DL (3.2-5.2); ALBUMIN/GLOBULIN RATIO 0.31 (1.00-1.93); ALKALINE PHOSPHATASE 552 U/L (45-117); ALT/SGPT 94 U/L (12-78); ANION GAP 9 MEQ/L (8-16); AST/SGOT 76 U/L (7-37); BILIRUBIN,DIRECT 1.3 MG/DL (0.0-0.2); BILIRUBIN,TOTAL 1.6 MG/DL (0.2-1.0); BLOOD UREA NITROGEN 49 MG/DL (7-18); CALCIUM LEVEL 8.5 MG/DL (8.8-10.2); CARBON DIOXIDE LEVEL 27 MEQ/L (21-32); CHLORIDE LEVEL 104 MEQ/L (98-107); CREATININE FOR GFR 1.06 MG/DL (0.55-1.30); GLOMERULAR FILTRATION RATE 54.6 (>39); GLUCOSE, FASTING 78 MG/DL (70-100); PHOSPHORUS LEVEL 3.5 MG/DL (2.5-4.9); POTASSIUM SERUM 3.6 MEQ/L (3.5-5.1); PREALBUMIN 10.4 MG/DL (20.0-40.0); SODIUM LEVEL 140 MEQ/L (136-145); TOTAL PROTEIN 6.7 GM/DL (6.4-8.2)
== END ==
LOC: M SHH 10:42
DX: K65.1 Peritoneal abscess (principal); K50.814 Crohn's disease of both small and large intestine with abscess; E44.0 Moderate protein-calorie malnutrition
CPT/HCPCS: 83735

== ENCOUNTER → 2017-10-30 | Outpatient (REF) | payer MEDICARE ==
[2017-10-30 12:44] LABS: HEMATOCRIT 26.4 % (36.0-47.0); HEMOGLOBIN 8.3 g/dl (12.0-15.5); MEAN CORPUSCULAR HEMOGLOBIN 28.4 pg (27.0-33.0); MEAN CORPUSCULAR HGB CONC 31.4 g/dl (32.0-36.5); MEAN CORPUSCULAR VOLUME 90.4 fl (80.0-96.0); RED BLOOD COUNT 2.92 10^6/uL (4.00-5.40); WHITE BLOOD COUNT 10.7 10^3/uL (4.0-10.0)
[2017-10-30 12:45] LABS: BASO % 0.2 % (0.0-1.0); EOS % 0.3 % (0.0-3.0); IMMATURE GRANULOCYTE % 0.7 % (0-3.0); LYMPH # 0.6 10^3/uL (1.5-4.5); LYMPH % 5.9 % (24.0-44.0); MONO # 0.9 10^3/uL (0.0-0.8); MONO % 8.3 % (0.0-5.0); NEUTROPHILS % 84.6 % (36.0-66.0); PLATELET COUNT, AUTOMATED 353 10^3/uL (150-450); RED CELL DISTRIBUTION WIDTH 17.2 % (11.5-14.5)
[2017-10-30 13:23] LABS: ALBUMIN 1.5 GM/DL (3.2-5.2); ALBUMIN/GLOBULIN RATIO 0.33 (1.00-1.93); ALKALINE PHOSPHATASE 453 U/L (45-117); ALT/SGPT 119 U/L (12-78); ANION GAP 8 MEQ/L (8-16); AST/SGOT 74 U/L (7-37); BILIRUBIN,DIRECT 1.4 MG/DL (0.0-0.2); BILIRUBIN,TOTAL 1.7 MG/DL (0.2-1.0); BLOOD UREA NITROGEN 55 MG/DL (7-18); CALCIUM LEVEL 8.3 MG/DL (8.8-10.2); CARBON DIOXIDE LEVEL 27 MEQ/L (21-32); CHLORIDE LEVEL 104 MEQ/L (98-107); CREATININE FOR GFR 1.02 MG/DL (0.55-1.30); GLUCOSE, FASTING 63 MG/DL (70-100); MAGNESIUM LEVEL 1.8 MG/DL (1.8-2.4); PHOSPHORUS LEVEL 3.5 MG/DL (2.5-4.9); POTASSIUM SERUM 3.9 MEQ/L (3.5-5.1); SODIUM LEVEL 139 MEQ/L (136-145); TOTAL PROTEIN 6.1 GM/DL (6.4-8.2)
== END ==
LOC: M LAB REF 12:30
DX: K65.1 Peritoneal abscess (principal); K50.814 Crohn's disease of both small and large intestine with abscess; E44.0 Moderate protein-calorie malnutrition
CPT/HCPCS: 83735

== ENCOUNTER → 2017-11-13 | Outpatient (REF) | payer MEDICARE ==
[2017-11-13 10:42] LABS: BASO % 0.2 % (0.0-1.0); EOS # 0.1 10^3/uL (0.0-0.50); EOS % 0.8 % (0.0-3.0); HEMATOCRIT 25.8 % (36.0-47.0); HEMOGLOBIN 8.2 g/dl (12.0-15.5); IMMATURE GRANULOCYTE % 0.9 % (0-3.0); LYMPH # 0.4 10^3/uL (1.5-4.5); LYMPH % 6.7 % (24.0-44.0); MEAN CORPUSCULAR HEMOGLOBIN 29.3 pg (27.0-33.0); MEAN CORPUSCULAR HGB CONC 31.8 g/dl (32.0-36.5); MEAN CORPUSCULAR VOLUME 92.1 fl (80.0-96.0); MONO # 0.7 10^3/uL (0.0-0.8); MONO % 10.9 % (0.0-5.0); NEUTROPHILS # 5.3 10^3/uL (1.8-7.7); NEUTROPHILS % 80.5 % (36.0-66.0); PLATELET COUNT, AUTOMATED 344 10^3/uL (150-450); RED CELL DISTRIBUTION WIDTH 16.4 % (11.5-14.5); WHITE BLOOD COUNT 6.5 10^3/uL (4.0-10.0)
[2017-11-13 11:17] LABS: ALBUMIN 1.4 GM/DL (3.2-5.2); ALBUMIN/GLOBULIN RATIO 0.31 (1.00-1.93); ALKALINE PHOSPHATASE 461 U/L (45-117); ALT/SGPT 105 U/L (12-78); ANION GAP 8 MEQ/L (8-16); AST/SGOT 75 U/L (7-37); BILIRUBIN,DIRECT 1.7 MG/DL (0.0-0.2); BILIRUBIN,TOTAL 1.8 MG/DL (0.2-1.0); BLOOD UREA NITROGEN 55 MG/DL (7-18); CALCIUM LEVEL 8.1 MG/DL (8.8-10.2); CARBON DIOXIDE LEVEL 27 MEQ/L (21-32); CHLORIDE LEVEL 102 MEQ/L (98-107); CREATININE FOR GFR 0.98 MG/DL (0.55-1.30); GLOMERULAR FILTRATION RATE 59.7 (>39); GLUCOSE, FASTING 71 MG/DL (70-100); MAGNESIUM LEVEL 1.9 MG/DL (1.8-2.4); PHOSPHORUS LEVEL 3.3 MG/DL (2.5-4.9); POTASSIUM SERUM 4.2 MEQ/L (3.5-5.1); PREALBUMIN 9.4 MG/DL (20.0-40.0); SODIUM LEVEL 137 MEQ/L (136-145); TOTAL PROTEIN 5.9 GM/DL (6.4-8.2)
== END ==
LOC: M SHH 10:08
DX: K50.814 Crohn's disease of both small and large intestine with abscess (principal); E44.0 Moderate protein-calorie malnutrition
CPT/HCPCS: 83735

== ENCOUNTER → 2017-11-20 | Outpatient (REF) | payer MEDICARE ==
[2017-11-20 10:56] LABS: BASO % 0.3 % (0.0-1.0); EOS % 0.7 % (0.0-3.0); HEMATOCRIT 26.6 % (36.0-47.0); HEMOGLOBIN 8.3 g/dl (12.0-15.5); IMMATURE GRANULOCYTE % 0.8 % (0-3.0); LYMPH # 0.4 10^3/uL (1.5-4.5); LYMPH % 7.2 % (24.0-44.0); MEAN CORPUSCULAR HEMOGLOBIN 28.6 pg (27.0-33.0); MEAN CORPUSCULAR HGB CONC 31.2 g/dl (32.0-36.5); MEAN CORPUSCULAR VOLUME 91.7 fl (80.0-96.0); MONO # 0.6 10^3/uL (0.0-0.8); MONO % 10.2 % (0.0-5.0); NEUTROPHILS # 4.9 10^3/uL (1.8-7.7); NEUTROPHILS % 80.8 % (36.0-66.0); PLATELET COUNT, AUTOMATED 371 10^3/uL (150-450); RED CELL DISTRIBUTION WIDTH 16.1 % (11.5-14.5); WHITE BLOOD COUNT 6.1 10^3/uL (4.0-10.0)
[2017-11-20 11:26] LABS: ALBUMIN 1.5 GM/DL (3.2-5.2); ALBUMIN/GLOBULIN RATIO 0.33 (1.00-1.93); ALKALINE PHOSPHATASE 448 U/L (45-117); ALT/SGPT 75 U/L (12-78); ANION GAP 8 MEQ/L (8-16); AST/SGOT 52 U/L (7-37); BILIRUBIN,DIRECT 1.2 MG/DL (0.0-0.2); BILIRUBIN,TOTAL 1.4 MG/DL (0.2-1.0); BLOOD UREA NITROGEN 43 MG/DL (7-18); CALCIUM LEVEL 8.3 MG/DL (8.8-10.2); CARBON DIOXIDE LEVEL 28 MEQ/L (21-32); CHLORIDE LEVEL 104 MEQ/L (98-107); CREATININE FOR GFR 1.09 MG/DL (0.55-1.30); GLOMERULAR FILTRATION RATE 52.8 (>39); GLUCOSE, FASTING 68 MG/DL (70-100); PHOSPHORUS LEVEL 3.7 MG/DL (2.5-4.9); POTASSIUM SERUM 4.1 MEQ/L (3.5-5.1); PREALBUMIN 11.3 MG/DL (20.0-40.0); SODIUM LEVEL 140 MEQ/L (136-145); TOTAL PROTEIN 6.1 GM/DL (6.4-8.2)
== END ==
LOC: M LAB REF 10:35
DX: K50.814 Crohn's disease of both small and large intestine with abscess (principal); E44.0 Moderate protein-calorie malnutrition
CPT/HCPCS: 83735

== ENCOUNTER → 2017-11-27 | Outpatient (REF) | payer MEDICARE ==
[2017-11-27 10:47] LABS: BASO % 0.2 % (0.0-1.0); EOS # 0.1 10^3/uL (0.0-0.50); EOS % 0.8 % (0.0-3.0); HEMATOCRIT 25.2 % (36.0-47.0); HEMOGLOBIN 7.9 g/dl (12.0-15.5); IMMATURE GRANULOCYTE % 0.6 % (0-3.0); LYMPH # 0.6 10^3/uL (1.5-4.5); LYMPH % 8.9 % (24.0-44.0); MEAN CORPUSCULAR HEMOGLOBIN 28.8 pg (27.0-33.0); MEAN CORPUSCULAR HGB CONC 31.3 g/dl (32.0-36.5); MONO # 0.8 10^3/uL (0.0-0.8); MONO % 12.7 % (0.0-5.0); NEUTROPHILS % 76.8 % (36.0-66.0); PLATELET COUNT, AUTOMATED 357 10^3/uL (150-450); RED BLOOD COUNT 2.74 10^6/uL (4.00-5.40); RED CELL DISTRIBUTION WIDTH 15.8 % (11.5-14.5); WHITE BLOOD COUNT 6.5 10^3/uL (4.0-10.0)
[2017-11-27 11:00] LABS: ALBUMIN 1.4 GM/DL (3.2-5.2); ALBUMIN/GLOBULIN RATIO 0.31 (1.00-1.93); ALKALINE PHOSPHATASE 425 U/L (45-117); ALT/SGPT 48 U/L (12-78); ANION GAP 5 MEQ/L (8-16); AST/SGOT 31 U/L (7-37); BILIRUBIN,DIRECT 1.2 MG/DL (0.0-0.2); BILIRUBIN,TOTAL 1.5 MG/DL (0.2-1.0); BLOOD UREA NITROGEN 46 MG/DL (7-18); CALCIUM LEVEL 8.3 MG/DL (8.8-10.2); CARBON DIOXIDE LEVEL 27 MEQ/L (21-32); CHLORIDE LEVEL 105 MEQ/L (98-107); CREATININE FOR GFR 1.12 MG/DL (0.55-1.30); GLOMERULAR FILTRATION RATE 51.2 (>39); GLUCOSE, FASTING 58 MG/DL (70-100); MAGNESIUM LEVEL 2.1 MG/DL (1.8-2.4); PHOSPHORUS LEVEL 3.7 MG/DL (2.5-4.9); POTASSIUM SERUM 4.4 MEQ/L (3.5-5.1); PREALBUMIN 11.1 MG/DL (20.0-40.0); SODIUM LEVEL 137 MEQ/L (136-145); TOTAL PROTEIN 5.9 GM/DL (6.4-8.2)
== END ==
LOC: M LAB REF 10:40
DX: K50.814 Crohn's disease of both small and large intestine with abscess (principal); E44.0 Moderate protein-calorie malnutrition; K65.1 Peritoneal abscess
CPT/HCPCS: 83735

== ENCOUNTER → 2017-12-04 | Outpatient (REF) | payer MEDICARE ==
[2017-12-04 12:17] LABS: BASO % 0.2 % (0.0-1.0); EOS # 0.1 10^3/uL (0.0-0.50); EOS % 1.5 % (0.0-3.0); HEMATOCRIT 27.8 % (36.0-47.0); HEMOGLOBIN 8.6 g/dl (12.0-15.5); IMMATURE GRANULOCYTE % 0.6 % (0-3.0); LYMPH # 0.7 10^3/uL (1.5-4.5); LYMPH % 13.2 % (24.0-44.0); MEAN CORPUSCULAR HEMOGLOBIN 28.9 pg (27.0-33.0); MEAN CORPUSCULAR HGB CONC 30.9 g/dl (32.0-36.5); MEAN CORPUSCULAR VOLUME 93.3 fl (80.0-96.0); MONO # 0.5 10^3/uL (0.0-0.8); MONO % 10.3 % (0.0-5.0); NEUTROPHILS # 3.9 10^3/uL (1.8-7.7); NEUTROPHILS % 74.2 % (36.0-66.0); PLATELET COUNT, AUTOMATED 366 10^3/uL (150-450); RED BLOOD COUNT 2.98 10^6/uL (4.00-5.40); RED CELL DISTRIBUTION WIDTH 15.6 % (11.5-14.5); WHITE BLOOD COUNT 5.2 10^3/uL (4.0-10.0)
[2017-12-04 13:29] LABS: ALBUMIN 1.5 GM/DL (3.2-5.2); ALBUMIN/GLOBULIN RATIO 0.32 (1.00-1.93); ALKALINE PHOSPHATASE 478 U/L (45-117); ALT/SGPT 51 U/L (12-78); ANION GAP 8 MEQ/L (8-16); AST/SGOT 41 U/L (7-37); BILIRUBIN,DIRECT 0.8 MG/DL (0.0-0.2); BLOOD UREA NITROGEN 41 MG/DL (7-18); CALCIUM LEVEL 8.8 MG/DL (8.8-10.2); CARBON DIOXIDE LEVEL 26 MEQ/L (21-32); CHLORIDE LEVEL 106 MEQ/L (98-107); CREATININE FOR GFR 1.07 MG/DL (0.55-1.30); GLUCOSE, FASTING 50 MG/DL (70-100); MAGNESIUM LEVEL 2.2 MG/DL (1.8-2.4); PHOSPHORUS LEVEL 3.8 MG/DL (2.5-4.9); POTASSIUM SERUM 4.2 MEQ/L (3.5-5.1); PREALBUMIN 13.2 MG/DL (20.0-40.0); SODIUM LEVEL 140 MEQ/L (136-145); TOTAL PROTEIN 6.2 GM/DL (6.4-8.2)
== END ==
LOC: M SHH 11:53
DX: K50.814 Crohn's disease of both small and large intestine with abscess (principal); E44.0 Moderate protein-calorie malnutrition
CPT/HCPCS: 83735

== ENCOUNTER → 2017-12-11 | Outpatient (REF) | payer MEDICARE ==
[2017-12-11 13:08] LABS: BASO % 0.4 % (0.0-1.0); EOS # 0.1 10^3/uL (0.0-0.50); EOS % 2.1 % (0.0-3.0); HEMATOCRIT 28.5 % (36.0-47.0); HEMOGLOBIN 8.9 g/dl (12.0-15.5); IMMATURE GRANULOCYTE % 0.6 % (0-3.0); LYMPH # 0.7 10^3/uL (1.5-4.5); LYMPH % 14.5 % (24.0-44.0); MEAN CORPUSCULAR HEMOGLOBIN 28.8 pg (27.0-33.0); MEAN CORPUSCULAR HGB CONC 31.2 g/dl (32.0-36.5); MEAN CORPUSCULAR VOLUME 92.2 fl (80.0-96.0); MONO # 0.6 10^3/uL (0.0-0.8); MONO % 12.2 % (0.0-5.0); NEUTROPHILS # 3.4 10^3/uL (1.8-7.7); NEUTROPHILS % 70.2 % (36.0-66.0); PLATELET COUNT, AUTOMATED 365 10^3/uL (150-450); RED BLOOD COUNT 3.09 10^6/uL (4.00-5.40); RED CELL DISTRIBUTION WIDTH 14.9 % (11.5-14.5); WHITE BLOOD COUNT 4.8 10^3/uL (4.0-10.0)
[2017-12-11 14:33] LABS: ALBUMIN 1.6 GM/DL (3.2-5.2); ALBUMIN/GLOBULIN RATIO 0.33 (1.00-1.93); ALKALINE PHOSPHATASE 579 U/L (45-117); ALT/SGPT 61 U/L (12-78); ANION GAP 9 MEQ/L (8-16); AST/SGOT 55 U/L (7-37); BILIRUBIN,DIRECT 0.6 MG/DL (0.0-0.2); BILIRUBIN,TOTAL 0.7 MG/DL (0.2-1.0); BLOOD UREA NITROGEN 38 MG/DL (7-18); CALCIUM LEVEL 8.7 MG/DL (8.8-10.2); CARBON DIOXIDE LEVEL 27 MEQ/L (21-32); CHLORIDE LEVEL 107 MEQ/L (98-107); GLOMERULAR FILTRATION RATE 52.3 (>39); GLUCOSE, FASTING 44 MG/DL (70-100); MAGNESIUM LEVEL 2.2 MG/DL (1.8-2.4); PHOSPHORUS LEVEL 4.1 MG/DL (2.5-4.9); POTASSIUM SERUM 4.2 MEQ/L (3.5-5.1); SODIUM LEVEL 143 MEQ/L (136-145); TOTAL PROTEIN 6.4 GM/DL (6.4-8.2)
[2017-12-11 21:02] LABS: PREALBUMIN 14.9 MG/DL (20.0-40.0)
== END ==
LOC: M LAB REF 11:53
DX: K65.1 Peritoneal abscess (principal); K50.814 Crohn's disease of both small and large intestine with abscess; E44.0 Moderate protein-calorie malnutrition
CPT/HCPCS: 83735

== ENCOUNTER 2017-12-14 14:42 | Outpatient (REF) | payer MEDICARE ==
[2017-12-18 11:14] LABS: BASO % 0.3 % (0.0-1.0); EOS # 0.1 10^3/uL (0.0-0.50); EOS % 0.9 % (0.0-3.0); HEMATOCRIT 28.5 % (36.0-47.0); IMMATURE GRANULOCYTE % 0.6 % (0-3.0); LYMPH # 0.6 10^3/uL (1.5-4.5); LYMPH % 7.9 % (24.0-44.0); MEAN CORPUSCULAR HEMOGLOBIN 29.1 pg (27.0-33.0); MEAN CORPUSCULAR HGB CONC 31.6 g/dl (32.0-36.5); MEAN CORPUSCULAR VOLUME 92.2 fl (80.0-96.0); MONO # 0.8 10^3/uL (0.0-0.8); MONO % 10.3 % (0.0-5.0); NEUTROPHILS # 6.3 10^3/uL (1.8-7.7); PLATELET COUNT, AUTOMATED 301 10^3/uL (150-450); RED BLOOD COUNT 3.09 10^6/uL (4.00-5.40); RED CELL DISTRIBUTION WIDTH 14.9 % (11.5-14.5); WHITE BLOOD COUNT 7.8 10^3/uL (4.0-10.0)
[2017-12-18 11:27] LABS: ALBUMIN 1.5 GM/DL (3.2-5.2); ALBUMIN/GLOBULIN RATIO 0.31 (1.00-1.93); ALKALINE PHOSPHATASE 541 U/L (45-117); ALT/SGPT 42 U/L (12-78); ANION GAP 9 MEQ/L (8-16); AST/SGOT 41 U/L (7-37); BILIRUBIN,DIRECT 0.5 MG/DL (0.0-0.2); BILIRUBIN,TOTAL 0.7 MG/DL (0.2-1.0); BLOOD UREA NITROGEN 41 MG/DL (7-18); CALCIUM LEVEL 8.7 MG/DL (8.8-10.2); CARBON DIOXIDE LEVEL 26 MEQ/L (21-32); CHLORIDE LEVEL 103 MEQ/L (98-107); CREATININE FOR GFR 1.32 MG/DL (0.55-1.30); GLOMERULAR FILTRATION RATE 42.4 (>39); GLUCOSE, FASTING 51 MG/DL (70-100); MAGNESIUM LEVEL 2.2 MG/DL (1.8-2.4); PHOSPHORUS LEVEL 3.5 MG/DL (2.5-4.9); SODIUM LEVEL 138 MEQ/L (136-145); TOTAL PROTEIN 6.3 GM/DL (6.4-8.2)
[2017-12-18 15:59] LABS: PREALBUMIN 13.3 MG/DL (20.0-40.0)
== END 2017-12-18 ==
LOC: M SHH 12-18 11:03
DX: K50.814 Crohn's disease of both small and large intestine with abscess (principal); E44.0 Moderate protein-calorie malnutrition; K65.1 Peritoneal abscess
CPT/HCPCS: 83735

== ENCOUNTER → 2017-12-22 | Day surgery (SDC) | payer MEDICARE ==
[~2017-12-22] MED LIST changes: +D5W/0.45% SODIUM CHLORIDE 1,000 ML IV; -GASTROGRAFIN SOLUTION 30ML (Q9963) As Ordered; +GLYCOPYRROLATE INJ 0.2 MG/ML 2 ML VIAL As Ordered; -ISOVUE-370 76% 100ML VIAL (Q9967) As Ordered; +LIDOCAINE 1% MDV 20ML VIAL SQ; +LIDOCAINE 2% INJ 100 MG/5 ML SDV (FOR ANES.) As Ordered; +LR 1,000 ML IV; +MIDAZOLAM INJ 2 MG/2 ML VIAL (J2250) As Ordered; +NEOSTIGMINE 10 MG/10 ML VIAL (J2710) As Ordered; +ONDANSETRON 4MG/2ML VIAL (J2405) As Ordered; +ONDANSETRON 4MG/2ML VIAL (J2405) IV; +PROPOFOL 500 MG/50 ML VIAL As Ordered; +dexameTHASONE 4 MG/ML 1ML VIAL (J1100) As Ordered; +fentaNYL 100 MCG/2 ML INJECTION (J3010) As Ordered
[2017-12-22 08:12] LABS: BEDSIDE GLUCOSE 84 MG/DL (83-110)
== END | disposition home or self-care (01) ==
LOC: M SDC 07:40
DX: K50.90 Crohn's disease, unspecified, without complications (principal); Z53.09 Procedure and treatment not carried out because of other contraindication
CPT/HCPCS: 93005

== ENCOUNTER → 2017-12-26 | Outpatient (REF) | payer MEDICARE ==
[2017-12-26 14:01] LABS: BASO % 0.3 % (0.0-1.0); EOS % 0.7 % (0.0-3.0); HEMATOCRIT 27.9 % (36.0-47.0); HEMOGLOBIN 8.8 g/dl (12.0-15.5); IMMATURE GRANULOCYTE % 0.5 % (0-3.0); LYMPH # 0.5 10^3/uL (1.5-4.5); LYMPH % 9.4 % (24.0-44.0); MEAN CORPUSCULAR HGB CONC 31.5 g/dl (32.0-36.5); MEAN CORPUSCULAR VOLUME 92.1 fl (80.0-96.0); MONO # 0.6 10^3/uL (0.0-0.8); MONO % 9.7 % (0.0-5.0); NEUTROPHILS # 4.6 10^3/uL (1.8-7.7); NEUTROPHILS % 79.4 % (36.0-66.0); PLATELET COUNT, AUTOMATED 316 10^3/uL (150-450); RED BLOOD COUNT 3.03 10^6/uL (4.00-5.40); RED CELL DISTRIBUTION WIDTH 14.4 % (11.5-14.5); WHITE BLOOD COUNT 5.8 10^3/uL (4.0-10.0)
[2017-12-26 15:46] LABS: ALBUMIN 1.6 GM/DL (3.2-5.2); ALBUMIN/GLOBULIN RATIO 0.34 (1.00-1.93); ALKALINE PHOSPHATASE 690 U/L (45-117); ALT/SGPT 56 U/L (12-78); ANION GAP 11 MEQ/L (8-16); AST/SGOT 57 U/L (7-37); BILIRUBIN,DIRECT 0.5 MG/DL (0.0-0.2); BILIRUBIN,TOTAL 0.6 MG/DL (0.2-1.0); BLOOD UREA NITROGEN 44 MG/DL (7-18); CARBON DIOXIDE LEVEL 24 MEQ/L (21-32); CHLORIDE LEVEL 105 MEQ/L (98-107); CREATININE FOR GFR 1.31 MG/DL (0.55-1.30); GLOMERULAR FILTRATION RATE 42.7 (>39); GLUCOSE, FASTING 79 MG/DL (70-100); MAGNESIUM LEVEL 2.1 MG/DL (1.8-2.4); PHOSPHORUS LEVEL 4.3 MG/DL (2.5-4.9); POTASSIUM SERUM 4.2 MEQ/L (3.5-5.1); SODIUM LEVEL 140 MEQ/L (136-145); TOTAL PROTEIN 6.3 GM/DL (6.4-8.2)
[2017-12-26 21:45] LABS: PREALBUMIN 14.9 MG/DL (20.0-40.0)
== END ==
LOC: M LAB REF 13:44
DX: K65.1 Peritoneal abscess (principal); K50.814 Crohn's disease of both small and large intestine with abscess; E44.0 Moderate protein-calorie malnutrition; D50.8 Other iron deficiency anemias; K50.913 Crohn's disease, unspecified, with fistula; D60.8 Other acquired pure red cell aplasias; E55.9 Vitamin D deficiency, unspecified
CPT/HCPCS: 83550; 83735

== ENCOUNTER → 2018-01-01 | Outpatient (REF) | payer MEDICARE ==
[2018-01-01 12:14] LABS: BASO % 0.2 % (0.0-1.0); EOS # 0.1 10^3/uL (0.0-0.50); HEMATOCRIT 27.6 % (36.0-47.0); HEMOGLOBIN 8.6 g/dl (12.0-15.5); IMMATURE GRANULOCYTE % 0.2 % (0-3.0); LYMPH # 0.6 10^3/uL (1.5-4.5); MEAN CORPUSCULAR HEMOGLOBIN 28.9 pg (27.0-33.0); MEAN CORPUSCULAR HGB CONC 31.2 g/dl (32.0-36.5); MEAN CORPUSCULAR VOLUME 92.6 fl (80.0-96.0); MONO # 0.5 10^3/uL (0.0-0.8); MONO % 13.1 % (0.0-5.0); NEUTROPHILS # 2.9 10^3/uL (1.8-7.7); NEUTROPHILS % 70.5 % (36.0-66.0); PLATELET COUNT, AUTOMATED 320 10^3/uL (150-450); RED BLOOD COUNT 2.98 10^6/uL (4.00-5.40); RED CELL DISTRIBUTION WIDTH 14.1 % (11.5-14.5); WHITE BLOOD COUNT 4.1 10^3/uL (4.0-10.0)
[2018-01-01 23:50] LABS: ALBUMIN 1.6 GM/DL (3.2-5.2); ALKALINE PHOSPHATASE 663 U/L (45-117); ALT/SGPT 47 U/L (12-78); ANION GAP 10 MEQ/L (8-16); AST/SGOT 42 U/L (7-37); BILIRUBIN,DIRECT 0.3 MG/DL (0.0-0.2); BILIRUBIN,TOTAL 0.4 MG/DL (0.2-1.0); BLOOD UREA NITROGEN 37 MG/DL (7-18); CARBON DIOXIDE LEVEL 23 MEQ/L (21-32); CHLORIDE LEVEL 109 MEQ/L (98-107); CREATININE FOR GFR 1.29 MG/DL (0.55-1.30); GLOMERULAR FILTRATION RATE 43.5 (>39); GLUCOSE, FASTING 44 MG/DL (70-100); MAGNESIUM LEVEL 2.3 MG/DL (1.8-2.4); PHOSPHORUS LEVEL 3.3 MG/DL (2.5-4.9); POTASSIUM SERUM 3.7 MEQ/L (3.5-5.1); SODIUM LEVEL 142 MEQ/L (136-145); TOTAL PROTEIN 6.1 GM/DL (6.4-8.2)
[2018-01-02 00:13] LABS: ALBUMIN/GLOBULIN RATIO 0.36 (1.00-1.93)
[2018-01-02 00:29] LABS: PREALBUMIN 13.7 MG/DL (20.0-40.0)
== END ==
LOC: M SHH 11:38
DX: K65.1 Peritoneal abscess (principal); K50.814 Crohn's disease of both small and large intestine with abscess; E44.0 Moderate protein-calorie malnutrition
CPT/HCPCS: 83735

== ENCOUNTER 2018-01-05 07:04 | Day surgery (SDC) | payer MEDICARE ==
[~2018-01-05 07:04] MED LIST changes: -D5W/0.45% SODIUM CHLORIDE 1,000 ML IV; -GLYCOPYRROLATE INJ 0.2 MG/ML 2 ML VIAL As Ordered; -LIDOCAINE 1% MDV 20ML VIAL SQ; -LR 1,000 ML IV; -NEOSTIGMINE 10 MG/10 ML VIAL (J2710) As Ordered; -ONDANSETRON 4MG/2ML VIAL (J2405) IV; +PROPOFOL 200 MG/20 ML VIAL As Ordered; -PROPOFOL 500 MG/50 ML VIAL As Ordered; -dexameTHASONE 4 MG/ML 1ML VIAL (J1100) As Ordered
[2018-01-05] MEDS ORDERED: PHENYLephrine HCL 500 MCG/5 ML (100MCG/ML) SYRINGE (J2370) As Ordered (08:51)
[2018-01-05] MEDS ORDERED: HYDROCORTISONE 100 MG/2 ML VIAL (J1720) As Ordered (08:58)
[2018-01-05] MEDS: HEPARIN SOD (PORCINE) 5000 UNITS/ML VIAL As Ordered (09:06)
[2018-01-05] MEDS: BUPIVACAINE HCL 0.25% 30 ML VIAL As Ordered (09:28)
[2018-01-05] MEDS: LIDOCAINE 1% SDV INJ 30 ML VIAL As Ordered (09:28)
[2018-01-05] MEDS ORDERED: PERCOCET 5MG/325MG TAB As Ordered (09:59)
[2018-01-05] MEDS ORDERED: fentaNYL 100 MCG/2 ML INJECTION (J3010) IV (10:00)
[2018-01-05] MEDS ORDERED: ONDANSETRON 4MG/2ML VIAL (J2405) IV (10:00)
[2018-01-05] MEDS: PERCOCET 5MG/325MG TAB PO (10:01)
[2018-01-05] MEDS ORDERED: D5W/0.45% SODIUM CHLORIDE 1,000 ML IV (10:15)
== END 2018-01-05 11:11 | disposition home or self-care (01) ==
LOC: M SDC 07:04
DX: K50.90 Crohn's disease, unspecified, without complications (principal); Z45.2 Encounter for adjustment and management of vascular access device; Z88.2 Allergy status to sulfonamides; Z88.8 Allergy status to other drugs, medicaments and biological substances; Z79.899 Other long term (current) drug therapy; D64.9 Anemia, unspecified
CPT/HCPCS: 36561

== ENCOUNTER → 2018-01-08 | Outpatient (REF) | payer MEDICARE ==
[2018-01-08 13:45] LABS: ALBUMIN 1.6 GM/DL (3.2-5.2); ALBUMIN/GLOBULIN RATIO 0.38 (1.00-1.93); ALKALINE PHOSPHATASE 560 U/L (45-117); ALT/SGPT 23 U/L (12-78); AST/SGOT 23 U/L (7-37); BILIRUBIN,DIRECT 0.3 MG/DL (0.0-0.2); BILIRUBIN,TOTAL 0.5 MG/DL (0.2-1.0); MAGNESIUM LEVEL 1.9 MG/DL (1.8-2.4); PHOSPHORUS LEVEL 3.2 MG/DL (2.5-4.9); PREALBUMIN 14.2 MG/DL (20.0-40.0); TOTAL PROTEIN 5.8 GM/DL (6.4-8.2)
== END ==
LOC: M SHH 12:25
DX: K65.1 Peritoneal abscess (principal); K50.814 Crohn's disease of both small and large intestine with abscess; E44.0 Moderate protein-calorie malnutrition; N18.3 Chronic kidney disease, stage 3 (moderate); D50.9 Iron deficiency anemia, unspecified; N25.81 Secondary hyperparathyroidism of renal origin

== ENCOUNTER → 2018-01-08 | Outpatient (REF) | payer MEDICARE ==
[2018-01-08 12:45] LABS: APPEARANCE, URINE CLEAR (CLEAR); BACTERIA, URINE AUTO 1+ (NEGATIVE); BILIRUBIN, URINE AUTO NEGATIVE (NEGATIVE); BLOOD, URINE BLOOD NEGATIVE (NEGATIVE); COLOR, URINE YELLOW (YELLOW); GLUCOSE, URINE (UA) AUTO NEGATIVE (NEGATIVE); KETONE, URINE AUTO NEGATIVE (NEGATIVE); LEUKOCYTE ESTERASE, URINE AUTO TRACE (NEGATIVE); NITRITE, URINE AUTO NEGATIVE (NEGATIVE); PROTEIN, URINE AUTO 2+ mg/dL (NEGATIVE); RBC, URINE AUTO 1 /HPF (0-3); SPECIFIC GRAVITY URINE AUTO 1.008 (1.002-1.035); SQUAMOUS EPITHELIAL CELL UR AU 0 /HPF (0-6); UROBILINOGEN, URINE AUTO 0.2 mg/dL (0.0-2.0); WBC, URINE AUTO 6 /HPF (0-3)
[2018-01-08 12:46] LABS: BASO % 0.2 % (0.0-1.0); EOS # 0.1 10^3/uL (0.0-0.50); EOS % 1.7 % (0.0-3.0); HEMATOCRIT 26.8 % (36.0-47.0); HEMOGLOBIN 8.4 g/dl (12.0-15.5); IMMATURE GRANULOCYTE % 0.3 % (0-3.0); LYMPH # 0.5 10^3/uL (1.5-4.5); MEAN CORPUSCULAR HEMOGLOBIN 28.8 pg (27.0-33.0); MEAN CORPUSCULAR HGB CONC 31.3 g/dl (32.0-36.5); MEAN CORPUSCULAR VOLUME 91.8 fl (80.0-96.0); MONO # 0.6 10^3/uL (0.0-0.8); MONO % 10.9 % (0.0-5.0); NEUTROPHILS # 4.6 10^3/uL (1.8-7.7); NEUTROPHILS % 78.9 % (36.0-66.0); PLATELET COUNT, AUTOMATED 259 10^3/uL (150-450); RED BLOOD COUNT 2.92 10^6/uL (4.00-5.40); WHITE BLOOD COUNT 5.8 10^3/uL (4.0-10.0)
[2018-01-08 13:38] LABS: ALBUMIN 1.6 GM/DL (3.2-5.2); ANION GAP 8 MEQ/L (8-16); BLOOD UREA NITROGEN 32 MG/DL (7-18); CALCIUM LEVEL 7.9 MG/DL (8.8-10.2); CARBON DIOXIDE LEVEL 25 MEQ/L (21-32); CHLORIDE LEVEL 107 MEQ/L (98-107); CREATININE FOR GFR 1.19 MG/DL (0.55-1.30); GLOMERULAR FILTRATION RATE 47.7 (>39); GLUCOSE, FASTING 62 MG/DL (70-100); MAGNESIUM LEVEL 1.8 MG/DL (1.8-2.4); PHOSPHORUS LEVEL 3.1 MG/DL (2.5-4.9); POTASSIUM SERUM 4.2 MEQ/L (3.5-5.1); SODIUM LEVEL 140 MEQ/L (136-145)
[2018-01-08 20:32] LABS: PTH INTACT 13.3 PG/ML (18.5-88.0)
== END ==
LOC: M LAB REF 11:50
DX: N18.3 Chronic kidney disease, stage 3 (moderate) (principal); D50.9 Iron deficiency anemia, unspecified; N25.81 Secondary hyperparathyroidism of renal origin; K65.1 Peritoneal abscess; K50.814 Crohn's disease of both small and large intestine with abscess; E44.0 Moderate protein-calorie malnutrition
CPT/HCPCS: 83735

== ENCOUNTER → 2018-01-12 | Outpatient (CLI) | payer MEDICARE | LOC: M RAD 10:14 | DX: E44.0 Moderate protein-calorie malnutrition (principal); R22.32 Localized swelling, mass and lump, left upper limb; K50.814 Crohn's disease of both small and large intestine with abscess; J90 Pleural effusion, not elsewhere classified | CPT/HCPCS: 71046 ==

== ENCOUNTER → 2018-01-15 | Outpatient (REF) | payer MEDICARE ==
[2018-01-15 18:36] LABS: FERRITIN 126 NG/ML (8-252); IRON (FE) 36 UG/DL (50-170); PERCENT SATURATION 24.5 % (13.2-45.0); TOTAL IRON BINDING CAPACITY 147 UG/DL (250-450)
== END ==
LOC: M SHH 17:21
DX: N18.3 Chronic kidney disease, stage 3 (moderate) (principal); D63.1 Anemia in chronic kidney disease; K65.1 Peritoneal abscess; K50.814 Crohn's disease of both small and large intestine with abscess; E44.0 Moderate protein-calorie malnutrition

== ENCOUNTER → 2018-01-15 | Outpatient (REF) | payer MEDICARE ==
[2018-01-15 18:13] LABS: BASO % 0.3 % (0.0-1.0); EOS # 0.1 10^3/uL (0.0-0.50); EOS % 2.9 % (0.0-3.0); HEMOGLOBIN 8.1 g/dl (12.0-15.5); IMMATURE GRANULOCYTE % 0.5 % (0-3.0); LYMPH # 0.6 10^3/uL (1.5-4.5); LYMPH % 14.8 % (24.0-44.0); MEAN CORPUSCULAR HEMOGLOBIN 28.5 pg (27.0-33.0); MEAN CORPUSCULAR HGB CONC 31.2 g/dl (32.0-36.5); MEAN CORPUSCULAR VOLUME 91.5 fl (80.0-96.0); MONO # 0.5 10^3/uL (0.0-0.8); MONO % 14.2 % (0.0-5.0); NEUTROPHILS # 2.6 10^3/uL (1.8-7.7); NEUTROPHILS % 67.3 % (36.0-66.0); PLATELET COUNT, AUTOMATED 286 10^3/uL (150-450); RED BLOOD COUNT 2.84 10^6/uL (4.00-5.40); RED CELL DISTRIBUTION WIDTH 14.9 % (11.5-14.5); WHITE BLOOD COUNT 3.8 10^3/uL (4.0-10.0)
[2018-01-15 20:01] LABS: ALBUMIN 1.6 GM/DL (3.2-5.2); ALBUMIN/GLOBULIN RATIO 0.39 (1.00-1.93); ALKALINE PHOSPHATASE 461 U/L (45-117); ALT/SGPT 15 U/L (12-78); ANION GAP 8 MEQ/L (8-16); AST/SGOT 16 U/L (7-37); BILIRUBIN,DIRECT 0.2 MG/DL (0.0-0.2); BILIRUBIN,TOTAL 0.4 MG/DL (0.2-1.0); BLOOD UREA NITROGEN 30 MG/DL (7-18); CARBON DIOXIDE LEVEL 24 MEQ/L (21-32); CHLORIDE LEVEL 107 MEQ/L (98-107); CREATININE FOR GFR 0.97 MG/DL (0.55-1.30); GLOMERULAR FILTRATION RATE > 60.0 (>39); GLUCOSE, FASTING 69 MG/DL (70-100); MAGNESIUM LEVEL 1.8 MG/DL (1.8-2.4); PHOSPHORUS LEVEL 3.3 MG/DL (2.5-4.9); POTASSIUM SERUM 4.4 MEQ/L (3.5-5.1); SODIUM LEVEL 139 MEQ/L (136-145); TOTAL PROTEIN 5.7 GM/DL (6.4-8.2)
[2018-01-15 20:02] LABS: PREALBUMIN 12.1 MG/DL (20.0-40.0)
== END ==
LOC: M SHH 17:17
DX: K65.1 Peritoneal abscess (principal); K50.814 Crohn's disease of both small and large intestine with abscess; E44.0 Moderate protein-calorie malnutrition; N18.3 Chronic kidney disease, stage 3 (moderate); D63.1 Anemia in chronic kidney disease
CPT/HCPCS: 83550

== ENCOUNTER 2018-01-19 00:02 | Inpatient (IN) | payer MEDICARE ==
[2018-01-19] MEDS: NS 500 ML IV (01:00)
[2018-01-19 01:01] LABS: BASO % 0.3 % (0.0-1.0); EOS % 0.1 % (0.0-3.0); HEMATOCRIT 29.6 % (36.0-47.0); HEMOGLOBIN 9.4 g/dl (12.0-15.5); IMMATURE GRANULOCYTE % 0.4 % (0-3.0); LYMPH # 0.3 10^3/uL (1.5-4.5); LYMPH % 3.7 % (24.0-44.0); MEAN CORPUSCULAR HEMOGLOBIN 28.6 pg (27.0-33.0); MEAN CORPUSCULAR HGB CONC 31.8 g/dl (32.0-36.5); MONO # 0.7 10^3/uL (0.0-0.8); MONO % 9.2 % (0.0-5.0); NEUTROPHILS # 6.6 10^3/uL (1.8-7.7); NEUTROPHILS % 86.3 % (36.0-66.0); PLATELET COUNT, AUTOMATED 314 10^3/uL (150-450); RED BLOOD COUNT 3.29 10^6/uL (4.00-5.40); RED CELL DISTRIBUTION WIDTH 14.9 % (11.5-14.5); WHITE BLOOD COUNT 7.6 10^3/uL (4.0-10.0)
[2018-01-19] MEDS: ACETAMINOPHEN 325 MG TAB PO (01:01)
[2018-01-19] MEDS: HYDROCORTISONE INJection 500 MG in NS 50 ML IV (01:01)
[2018-01-19] MEDS: MORPHINE 2 MG/ML 1ML SYRINGE (J2270) IV ×2 (01:02→02:30)
[2018-01-19 01:13] LABS: LACTIC ACID SEPSIS PROTOCOL 1.1 MMOL/L (0.4-2.0)
[2018-01-19 01:13] LABS: ALBUMIN 1.6 GM/DL (3.2-5.2); ALBUMIN/GLOBULIN RATIO 0.36 (1.00-1.93); ALKALINE PHOSPHATASE 528 U/L (45-117); ALT/SGPT 14 U/L (12-78); ANION GAP 9 MEQ/L (8-16); AST/SGOT 19 U/L (7-37); BILIRUBIN,DIRECT 0.4 MG/DL (0.0-0.2); BILIRUBIN,TOTAL 0.5 MG/DL (0.2-1.0); BLOOD UREA NITROGEN 26 MG/DL (7-18); CALCIUM LEVEL 7.5 MG/DL (8.8-10.2); CARBON DIOXIDE LEVEL 23 MEQ/L (21-32); CHLORIDE LEVEL 106 MEQ/L (98-107); CREATININE FOR GFR 1.24 MG/DL (0.55-1.30); GLOMERULAR FILTRATION RATE 45.5 (>39); GLUCOSE, FASTING 98 MG/DL (70-100); POTASSIUM SERUM 3.8 MEQ/L (3.5-5.1); SODIUM LEVEL 138 MEQ/L (136-145)
[2018-01-19 01:14] LABS: POSITIVE DIFF POS FLAG
[2018-01-19 01:24] LABS: INR 1.24; PROTHROMBIN TIME 15.8 SECONDS (12.1-14.4)
[2018-01-19 01:25] LABS: PARTIAL THROMBOPLASTIN TIME 38.3 SECONDS (25.4-37.6)
[2018-01-19] MEDS ORDERED: ISOVUE-370 76% 100ML VIAL (Q9967) As Ordered (01:40)
[2018-01-19 01:41] LABS: CK-MB VALUE MASS < 1.0 NG/ML (<3.6); CPK CREATINE PHOSPHOKINASE 17 U/L (26-192); MB/CK RELATIVE INDEX 5.88 (< OR =4); TROPONIN I 0.08 NG/ML (< 0.10)
[2018-01-19 02:00] LABS: INFLUENZA A AMPLIFICATION NEGATIVE (NEGATIVE); INFLUENZA B AMPLIFICATION NEGATIVE (NEGATIVE)
[2018-01-19 04:24] LABS: APPEARANCE, URINE CLOUDY (CLEAR); BACTERIA, URINE AUTO NEGATIVE (NEGATIVE); BILIRUBIN, URINE AUTO NEGATIVE (NEGATIVE); BLOOD, URINE BLOOD 3+ (NEGATIVE); COLOR, URINE YELLOW (YELLOW); GLUCOSE, URINE (UA) AUTO NEGATIVE (NEGATIVE); KETONE, URINE AUTO NEGATIVE (NEGATIVE); LEUKOCYTE ESTERASE, URINE AUTO 3+ (NEGATIVE); MUCUS, URINE SMALL (NEGATIVE); NITRITE, URINE AUTO NEGATIVE (NEGATIVE); PROTEIN, URINE AUTO 2+ mg/dL (NEGATIVE); RBC, URINE AUTO 59 /HPF (0-3); SPECIFIC GRAVITY URINE AUTO 1.039 (1.002-1.035); SQUAMOUS EPITHELIAL CELL UR AU 1 /HPF (0-6); TRANSITIONAL EPITHELIAL AUTO 4 /HPF; UROBILINOGEN, URINE AUTO 0.2 mg/dL (0.0-2.0); WBC, URINE AUTO TNTC /HPF (0-3)
[2018-01-19] MEDS ORDERED: ACETAMINOPHEN TAB 650MG DOSE (2X325MG) PO (06:45)
[2018-01-19] MEDS ORDERED: ONDANSETRON 4MG/2ML VIAL (J2405) IV ×2 (06:45→11:00)
[2018-01-19 06:56] LABS: GAMMA GLUTAMYLTRANSPEPTIDASE 700 U/L (5-55)
[2018-01-19] MEDS ORDERED: **NOTE PATIENT COMMENT** MISC XX (07:00)
[2018-01-19] MEDS: metroNIDAZOLE 500 MG in APPROPRIATE DILUENT 1 EA IV ×2 (08:00→18:22)
[2018-01-19] MEDS: CIPROFLOXACIN 400 MG in APPROPRIATE DILUENT 1 EA IV ×2 (08:25→23:27)
[2018-01-19] MEDS: PANTOPRAZOLE 40MG INJ (PROTONIX) (C9113) IV (08:41)
[2018-01-19] MEDS: VITAMIN D 1,000 INTERNATIONAL UNITS TABLET PO (08:41)
[2018-01-19] MEDS: D5W/0.45% SODIUM CHLORIDE 1,000 ML IV ×2 (08:41→16:42)
[2018-01-19] MEDS: HYDROCORTISONE 100 MG/2 ML VIAL (J1720) IV ×2 (08:42→16:42)
[2018-01-19] MEDS ORDERED: RIVAROXABAN 20 MG TAB (XARELTO) PO (09:00)
[2018-01-19] MEDS: SODIUM CHLORIDE 0.9% INJ 10 ML SYR IV (17:52)
[2018-01-19] MEDS: HYDROCORTISONE 5MG TABLET PO (20:49)
[2018-01-20] MEDS: TPN IV (01:53)
[2018-01-20] MEDS: [UNRECOGNIZED DRUG - OTHER] IV (01:53)
[2018-01-20] MEDS: metroNIDAZOLE 500 MG in APPROPRIATE DILUENT 1 EA IV ×3 (03:26→18:06)
[2018-01-20] MEDS: SODIUM CHLORIDE 0.9% INJ 10 ML SYR IV ×2 (05:11→18:06)
[2018-01-20 05:25] LABS: HEMATOCRIT 25.5 % (36.0-47.0); HEMOGLOBIN 8.1 g/dl (12.0-15.5); MEAN CORPUSCULAR HGB CONC 31.8 g/dl (32.0-36.5); MEAN CORPUSCULAR VOLUME 91.4 fl (80.0-96.0); PLATELET COUNT, AUTOMATED 293 10^3/uL (150-450); RED BLOOD COUNT 2.79 10^6/uL (4.00-5.40); WHITE BLOOD COUNT 6.2 10^3/uL (4.0-10.0)
[2018-01-20 06:00] LABS: ALBUMIN 1.5 GM/DL (3.2-5.2); ALBUMIN/GLOBULIN RATIO 0.39 (1.00-1.93); ALKALINE PHOSPHATASE 364 U/L (45-117); ALT/SGPT 12 U/L (12-78); ANION GAP 9 MEQ/L (8-16); AST/SGOT 11 U/L (7-37); BILIRUBIN,TOTAL 0.3 MG/DL (0.2-1.0); BLOOD UREA NITROGEN 26 MG/DL (7-18); CARBON DIOXIDE LEVEL 21 MEQ/L (21-32); CHLORIDE LEVEL 113 MEQ/L (98-107); CREATININE FOR GFR 1.03 MG/DL (0.55-1.30); GLOMERULAR FILTRATION RATE 56.4 (>39); GLUCOSE, FASTING 193 MG/DL (70-100); MAGNESIUM LEVEL 1.8 MG/DL (1.8-2.4); POTASSIUM SERUM 3.8 MEQ/L (3.5-5.1); SODIUM LEVEL 143 MEQ/L (136-145); TOTAL PROTEIN 5.3 GM/DL (6.4-8.2)
[2018-01-20] MEDS: PERCOCET 5MG/325MG TAB PO ×2 (06:19→22:08)
[2018-01-20] MEDS: PANTOPRAZOLE 40MG INJ (PROTONIX) (C9113) IV (08:40)
[2018-01-20] MEDS: VITAMIN D 1,000 INTERNATIONAL UNITS TABLET PO (08:40)
[2018-01-20] MEDS: HYDROCORTISONE 10 MG TAB PO (08:40)
[2018-01-20] MEDS: LIDOCAINE 1% SDV INJ 30 ML VIAL SQ (09:05)
[2018-01-20] MEDS: BUPIVACAINE HCL 0.25% 30 ML VIAL SC (09:55)
[2018-01-20] MEDS ORDERED: HYDROMORPHONE HCL 0.5 MG/ 0.5 ML SYRINGE (J1170 PER 1) IV (10:45)
[2018-01-20] MEDS ORDERED: ONDANSETRON 4MG/2ML VIAL (J2405) IV (10:45)
[2018-01-20] MEDS ORDERED: fentaNYL 100 MCG/2 ML INJECTION (J3010) IV (10:45)
[2018-01-20] MEDS: CIPROFLOXACIN 400 MG in APPROPRIATE DILUENT 1 EA IV ×2 (12:00→23:59)
[2018-01-20] MEDS: RIVAROXABAN 20 MG TAB (XARELTO) PO (18:06)
[2018-01-20] MEDS: HYDROCORTISONE 5MG TABLET PO (20:26)
[2018-01-20] MEDS: SENOKOT S TAB PO (20:26)
[2018-01-21] MEDS: [UNRECOGNIZED DRUG - OTHER] IV (01:45)
[2018-01-21] MEDS: TPN IV (01:45)
[2018-01-21] MEDS: metroNIDAZOLE 500 MG in APPROPRIATE DILUENT 1 EA IV ×2 (03:13→11:31)
[2018-01-21] MEDS: SODIUM CHLORIDE 0.9% INJ 10 ML SYR IV ×3 (05:34→20:14)
[2018-01-21 05:51] LABS: HEMATOCRIT 26.4 % (36.0-47.0); HEMOGLOBIN 8.4 g/dl (12.0-15.5); MEAN CORPUSCULAR HEMOGLOBIN 28.7 pg (27.0-33.0); MEAN CORPUSCULAR HGB CONC 31.8 g/dl (32.0-36.5); MEAN CORPUSCULAR VOLUME 90.1 fl (80.0-96.0); PLATELET COUNT, AUTOMATED 317 10^3/uL (150-450); RED BLOOD COUNT 2.93 10^6/uL (4.00-5.40); RED CELL DISTRIBUTION WIDTH 15.3 % (11.5-14.5); RETIC HEMOGLOBIN EQUIVALENT 27.6 pg (24-36); RETICULOCYTE # 75.6 10^9/L (17-77); RETICULOCYTE % 2.6 % (0.5-1.5); WHITE BLOOD COUNT 3.6 10^3/uL (4.0-10.0)
[2018-01-21 06:26] LABS: ALBUMIN 1.7 GM/DL (3.2-5.2); ALBUMIN/GLOBULIN RATIO 0.45 (1.00-1.93); ALKALINE PHOSPHATASE 394 U/L (45-117); ALT/SGPT 15 U/L (12-78); ANION GAP 9 MEQ/L (8-16); AST/SGOT 17 U/L (7-37); BILIRUBIN,TOTAL 0.2 MG/DL (0.2-1.0); BLOOD UREA NITROGEN 31 MG/DL (7-18); CALCIUM LEVEL 7.9 MG/DL (8.8-10.2); CARBON DIOXIDE LEVEL 21 MEQ/L (21-32); CHLORIDE LEVEL 114 MEQ/L (98-107); CREATININE FOR GFR 0.91 MG/DL (0.55-1.30); GLOMERULAR FILTRATION RATE > 60.0 (>39); GLUCOSE, FASTING 99 MG/DL (70-100); MAGNESIUM LEVEL 1.9 MG/DL (1.8-2.4); POTASSIUM SERUM 4.3 MEQ/L (3.5-5.1); SODIUM LEVEL 144 MEQ/L (136-145); TOTAL PROTEIN 5.5 GM/DL (6.4-8.2)
[2018-01-21] MEDS: SENOKOT S TAB PO (09:00)
[2018-01-21] MEDS: INFLUENZA VIRUS VACCINE HIGH DOSE 0.5 ML SYRINGE (90662) IM (09:00)
[2018-01-21] MEDS: PANTOPRAZOLE 40MG INJ (PROTONIX) (C9113) IV (09:47)
[2018-01-21] MEDS: VITAMIN D 1,000 INTERNATIONAL UNITS TABLET PO (09:47)
[2018-01-21] MEDS: HYDROCORTISONE 10 MG TAB PO (09:47)
[2018-01-21] MEDS: NS 1,000 ML IV (13:00)
[2018-01-21] MEDS: CIPROFLOXACIN 400 MG in APPROPRIATE DILUENT 1 EA IV (13:07)
[2018-01-21] MEDS: PERCOCET 5MG/325MG TAB PO (14:21)
[2018-01-21 15:00] LABS: IMMEDIATE SPIN CROSSMATCH 1 1
[2018-01-21] MEDS: IRON SUCROSE 300 MG in NS 250 ML IV (17:25)
[2018-01-21] MEDS: RIVAROXABAN 20 MG TAB (XARELTO) PO (17:27)
[2018-01-22] MEDS ORDERED: CYANOCOBALAMIN 1,000 MCG/ML VIAL (J3420) IM (09:00)
[2018-01-24 15:04] LABS: LIPASE URINE SEE SEPARATE REPORT
== END 2018-01-21 20:40 | disposition hospice, inpatient (51) | DRG 981 ==
LOC: M ED 00:02 → M ED INP 06:11 → M MS5PR 08:14
PROC: 05PY03Z Removal of Infusion Device from Upper Vein, Open Approach (ICD-10-PCS; principal; 2018-01-20 09:39)
PROC: 02HV33Z Insertion of Infusion Device into Superior Vena Cava, Percutaneous Approach (ICD-10-PCS; 2018-01-20 09:39)
PROC: 30233N1 Transfusion of Nonautologous Red Blood Cells into Peripheral Vein, Percutaneous Approach (ICD-10-PCS; 2018-01-20 09:39)
DX: K80.00 Calculus of gallbladder with acute cholecystitis without obstruction (principal); E43 Unspecified severe protein-calorie malnutrition; E27.40 Unspecified adrenocortical insufficiency; K50.913 Crohn's disease, unspecified, with fistula; N82.4 Other female intestinal-genital tract fistulae; I82.711 Chronic embolism and thrombosis of superficial veins of right upper extremity; T82.848A Pain due to vascular prosthetic devices, implants and grafts, initial encounter; D64.9 Anemia, unspecified; N18.9 Chronic kidney disease, unspecified; Z93.2 Ileostomy status; Z79.01 Long term (current) use of anticoagulants; Z79.899 Other long term (current) drug therapy; Z88.2 Allergy status to sulfonamides; Z88.1 Allergy status to other antibiotic agents; Y82.9 Unspecified medical devices associated with adverse incidents

== ENCOUNTER 2018-01-23 05:19 | Emergency (ER) | payer MEDICARE ==
[2018-01-23] MEDS: SODIUM CHLORIDE 0.9% INJ 10 ML SYR IV (06:30)
== END 2018-01-23 07:12 | disposition home or self-care (01) ==
LOC: M ED 05:19
DX: T82.838A Hemorrhage due to vascular prosthetic devices, implants and grafts, initial encounter (principal); E46 Unspecified protein-calorie malnutrition; K50.90 Crohn's disease, unspecified, without complications; Z88.8 Allergy status to other drugs, medicaments and biological substances; Z88.2 Allergy status to sulfonamides; Z79.2 Long term (current) use of antibiotics; Z79.899 Other long term (current) drug therapy
CPT/HCPCS: 99283

== ENCOUNTER → 2018-01-29 | Outpatient (REF) | payer MEDICARE ==
[2018-01-29 14:00] LABS: BASO % 0.5 % (0.0-1.0); EOS % 0.5 % (0.0-3.0); HEMATOCRIT 30.9 % (36.0-47.0); HEMOGLOBIN 9.9 g/dl (12.0-15.5); IMMATURE GRANULOCYTE % 0.2 % (0-3.0); LYMPH # 0.5 10^3/uL (1.5-4.5); LYMPH % 12.3 % (24.0-44.0); MEAN CORPUSCULAR HEMOGLOBIN 28.6 pg (27.0-33.0); MEAN CORPUSCULAR VOLUME 89.3 fl (80.0-96.0); MONO # 0.8 10^3/uL (0.0-0.8); MONO % 18.8 % (0.0-5.0); NEUTROPHILS # 2.9 10^3/uL (1.8-7.7); NEUTROPHILS % 67.7 % (36.0-66.0); PLATELET COUNT, AUTOMATED 244 10^3/uL (150-450); RED BLOOD COUNT 3.46 10^6/uL (4.00-5.40); RED CELL DISTRIBUTION WIDTH 15.3 % (11.5-14.5); WHITE BLOOD COUNT 4.3 10^3/uL (4.0-10.0)
[2018-01-29 14:38] LABS: ALBUMIN 1.6 GM/DL (3.2-5.2); ALBUMIN/GLOBULIN RATIO 0.42 (1.00-1.93); ALKALINE PHOSPHATASE 356 U/L (45-117); ALT/SGPT 15 U/L (12-78); ANION GAP 6 MEQ/L (8-16); AST/SGOT 22 U/L (7-37); BILIRUBIN,DIRECT 0.3 MG/DL (0.0-0.2); BILIRUBIN,TOTAL 0.4 MG/DL (0.2-1.0); BLOOD UREA NITROGEN 26 MG/DL (7-18); CALCIUM LEVEL 7.8 MG/DL (8.8-10.2); CARBON DIOXIDE LEVEL 28 MEQ/L (21-32); CHLORIDE LEVEL 104 MEQ/L (98-107); CREATININE FOR GFR 1.01 MG/DL (0.55-1.30); GLOMERULAR FILTRATION RATE 57.5 (>39); GLUCOSE, FASTING 71 MG/DL (70-100); MAGNESIUM LEVEL 1.5 MG/DL (1.8-2.4); PHOSPHORUS LEVEL 2.9 MG/DL (2.5-4.9); PREALBUMIN 13.3 MG/DL (20.0-40.0); SODIUM LEVEL 138 MEQ/L (136-145); TOTAL PROTEIN 5.4 GM/DL (6.4-8.2)
== END ==
LOC: M SHH 13:35
DX: K50.814 Crohn's disease of both small and large intestine with abscess (principal); K65.1 Peritoneal abscess; E44.0 Moderate protein-calorie malnutrition
CPT/HCPCS: 83735

== ENCOUNTER → 2018-02-05 | Outpatient (REF) | payer MEDICARE ==
[2018-02-05 15:33] LABS: BASO % 0.4 % (0.0-1.0); EOS % 0.6 % (0.0-3.0); HEMATOCRIT 32.5 % (36.0-47.0); HEMOGLOBIN 10.2 g/dl (12.0-15.5); IMMATURE GRANULOCYTE % 0.4 % (0-3.0); LYMPH # 0.4 10^3/uL (1.5-4.5); MEAN CORPUSCULAR HEMOGLOBIN 28.3 pg (27.0-33.0); MEAN CORPUSCULAR HGB CONC 31.4 g/dl (32.0-36.5); MEAN CORPUSCULAR VOLUME 90.3 fl (80.0-96.0); MONO # 0.5 10^3/uL (0.0-0.8); MONO % 10.5 % (0.0-5.0); NEUTROPHILS # 3.8 10^3/uL (1.8-7.7); NEUTROPHILS % 80.1 % (36.0-66.0); PLATELET COUNT, AUTOMATED 305 10^3/uL (150-450); RED CELL DISTRIBUTION WIDTH 14.8 % (11.5-14.5); WHITE BLOOD COUNT 4.8 10^3/uL (4.0-10.0)
[2018-02-05 15:48] LABS: ALBUMIN 1.8 GM/DL (3.2-5.2); ALBUMIN/GLOBULIN RATIO 0.47 (1.00-1.93); ALKALINE PHOSPHATASE 419 U/L (45-117); ALT/SGPT 14 U/L (12-78); ANION GAP 8 MEQ/L (8-16); AST/SGOT 18 U/L (7-37); BILIRUBIN,DIRECT 0.3 MG/DL (0.0-0.2); BILIRUBIN,TOTAL 0.4 MG/DL (0.2-1.0); BLOOD UREA NITROGEN 37 MG/DL (7-18); CALCIUM LEVEL 8.3 MG/DL (8.8-10.2); CARBON DIOXIDE LEVEL 28 MEQ/L (21-32); CHLORIDE LEVEL 102 MEQ/L (98-107); CREATININE FOR GFR 0.93 MG/DL (0.55-1.30); GLOMERULAR FILTRATION RATE > 60.0 (>39); GLUCOSE, FASTING 86 MG/DL (70-100); MAGNESIUM LEVEL 2.1 MG/DL (1.8-2.4); PHOSPHORUS LEVEL 3.9 MG/DL (2.5-4.9); POTASSIUM SERUM 4.3 MEQ/L (3.5-5.1); PREALBUMIN 15.8 MG/DL (20.0-40.0); SODIUM LEVEL 138 MEQ/L (136-145); TOTAL PROTEIN 5.6 GM/DL (6.4-8.2)
== END ==
LOC: M SHH 15:18
DX: I65.1 Occlusion and stenosis of basilar artery (principal); K65.1 Peritoneal abscess; K50.814 Crohn's disease of both small and large intestine with abscess; E44.0 Moderate protein-calorie malnutrition; I82.621 Acute embolism and thrombosis of deep veins of right upper extremity; D50.8 Other iron deficiency anemias; R60.9 Edema, unspecified

== ENCOUNTER → 2018-02-05 | Outpatient (REF) | payer MEDICARE ==
[2018-02-05 15:39] LABS: HEMATOCRIT 32.1 % (36.0-47.0); HEMOGLOBIN 10.2 g/dl (12.0-15.5); MEAN CORPUSCULAR HEMOGLOBIN 28.7 pg (27.0-33.0); MEAN CORPUSCULAR HGB CONC 31.8 g/dl (32.0-36.5); MEAN CORPUSCULAR VOLUME 90.4 fl (80.0-96.0); PLATELET COUNT, AUTOMATED 304 10^3/uL (150-450); RED BLOOD COUNT 3.55 10^6/uL (4.00-5.40); RED CELL DISTRIBUTION WIDTH 14.7 % (11.5-14.5); RETIC HEMOGLOBIN EQUIVALENT 32.1 pg (24-36); RETICULOCYTE # 65.3 10^9/L (17-77); RETICULOCYTE % 1.8 % (0.5-1.5); WHITE BLOOD COUNT 4.6 10^3/uL (4.0-10.0)
[2018-02-05 15:45] LABS: ANION GAP 8 MEQ/L (8-16); BLOOD UREA NITROGEN 35 MG/DL (7-18); CALCIUM LEVEL 8.6 MG/DL (8.8-10.2); CARBON DIOXIDE LEVEL 27 MEQ/L (21-32); CHLORIDE LEVEL 103 MEQ/L (98-107); CREATININE FOR GFR 0.89 MG/DL (0.55-1.30); FERRITIN 278 NG/ML (8-252); GLOMERULAR FILTRATION RATE > 60.0 (>39); GLUCOSE, FASTING 87 MG/DL (70-100); POTASSIUM SERUM 4.4 MEQ/L (3.5-5.1); SODIUM LEVEL 138 MEQ/L (136-145)
== END ==
LOC: M SHH 15:20
DX: I82.621 Acute embolism and thrombosis of deep veins of right upper extremity (principal); D50.8 Other iron deficiency anemias; R60.9 Edema, unspecified; I65.1 Occlusion and stenosis of basilar artery; K65.1 Peritoneal abscess; K50.814 Crohn's disease of both small and large intestine with abscess; E44.0 Moderate protein-calorie malnutrition
CPT/HCPCS: 83735

== ENCOUNTER → 2018-02-12 | Outpatient (REF) | payer MEDICARE ==
[2018-02-12 12:38] LABS: BASO % 0.3 % (0.0-1.0); EOS # 0.1 10^3/uL (0.0-0.50); EOS % 1.3 % (0.0-3.0); HEMATOCRIT 35.2 % (36.0-47.0); HEMOGLOBIN 11.3 g/dl (12.0-15.5); IMMATURE GRANULOCYTE % 0.3 % (0-3.0); LYMPH # 0.8 10^3/uL (1.5-4.5); LYMPH % 12.8 % (24.0-44.0); MEAN CORPUSCULAR HEMOGLOBIN 28.6 pg (27.0-33.0); MEAN CORPUSCULAR HGB CONC 32.1 g/dl (32.0-36.5); MEAN CORPUSCULAR VOLUME 89.1 fl (80.0-96.0); MONO # 0.7 10^3/uL (0.0-0.8); MONO % 11.6 % (0.0-5.0); NEUTROPHILS # 4.6 10^3/uL (1.8-7.7); NEUTROPHILS % 73.7 % (36.0-66.0); PLATELET COUNT, AUTOMATED 382 10^3/uL (150-450); RED BLOOD COUNT 3.95 10^6/uL (4.00-5.40); RED CELL DISTRIBUTION WIDTH 14.3 % (11.5-14.5); WHITE BLOOD COUNT 6.3 10^3/uL (4.0-10.0)
[2018-02-12 12:58] LABS: ALBUMIN 1.9 GM/DL (3.2-5.2); ALBUMIN/GLOBULIN RATIO 0.45 (1.00-1.93); ALKALINE PHOSPHATASE 832 U/L (45-117); ALT/SGPT 34 U/L (12-78); ANION GAP 9 MEQ/L (8-16); AST/SGOT 41 U/L (7-37); BILIRUBIN,DIRECT 0.2 MG/DL (0.0-0.2); BILIRUBIN,TOTAL 0.4 MG/DL (0.2-1.0); BLOOD UREA NITROGEN 45 MG/DL (7-18); CALCIUM LEVEL 8.9 MG/DL (8.8-10.2); CARBON DIOXIDE LEVEL 28 MEQ/L (21-32); CHLORIDE LEVEL 101 MEQ/L (98-107); GLOMERULAR FILTRATION RATE 58.2 (>39); GLUCOSE, FASTING 55 MG/DL (70-100); POTASSIUM SERUM 3.9 MEQ/L (3.5-5.1); SODIUM LEVEL 138 MEQ/L (136-145); TOTAL PROTEIN 6.1 GM/DL (6.4-8.2)
[2018-02-12 13:00] LABS: PHOSPHORUS LEVEL 4.6 MG/DL (2.5-4.9)
[2018-02-14 10:32] LABS: GAMMA GLUTAMYLTRANSPEPTIDASE 777 U/L (5-55)
== END ==
LOC: M LAB REF 12:04
DX: K65.1 Peritoneal abscess (principal); K50.814 Crohn's disease of both small and large intestine with abscess; E44.0 Moderate protein-calorie malnutrition
CPT/HCPCS: 82977

== ENCOUNTER → 2018-02-19 | Outpatient (REF) | payer MEDICARE ==
[2018-02-19 12:01] LABS: BASO % 0.4 % (0.0-1.0); EOS # 0.1 10^3/uL (0.0-0.50); EOS % 1.3 % (0.0-3.0); HEMATOCRIT 33.2 % (36.0-47.0); HEMOGLOBIN 10.8 g/dl (12.0-15.5); IMMATURE GRANULOCYTE % 0.6 % (0-3.0); LYMPH # 0.8 10^3/uL (1.5-4.5); LYMPH % 15.8 % (24.0-44.0); MEAN CORPUSCULAR HEMOGLOBIN 28.6 pg (27.0-33.0); MEAN CORPUSCULAR HGB CONC 32.5 g/dl (32.0-36.5); MEAN CORPUSCULAR VOLUME 87.8 fl (80.0-96.0); MONO # 0.7 10^3/uL (0.0-0.8); MONO % 12.4 % (0.0-5.0); NEUTROPHILS # 3.7 10^3/uL (1.8-7.7); NEUTROPHILS % 69.5 % (36.0-66.0); PLATELET COUNT, AUTOMATED 310 10^3/uL (150-450); RED BLOOD COUNT 3.78 10^6/uL (4.00-5.40); RED CELL DISTRIBUTION WIDTH 14.2 % (11.5-14.5); WHITE BLOOD COUNT 5.3 10^3/uL (4.0-10.0)
[2018-02-19 12:55] LABS: ALBUMIN 1.9 GM/DL (3.2-5.2); ALBUMIN/GLOBULIN RATIO 0.49 (1.00-1.93); ALKALINE PHOSPHATASE 975 U/L (45-117); ALT/SGPT 48 U/L (12-78); ANION GAP 9 MEQ/L (8-16); AST/SGOT 51 U/L (7-37); BILIRUBIN,DIRECT 0.2 MG/DL (0.0-0.2); BILIRUBIN,TOTAL 0.3 MG/DL (0.2-1.0); BLOOD UREA NITROGEN 48 MG/DL (7-18); CALCIUM LEVEL 8.9 MG/DL (8.8-10.2); CARBON DIOXIDE LEVEL 28 MEQ/L (21-32); CHLORIDE LEVEL 103 MEQ/L (98-107); GLOMERULAR FILTRATION RATE 58.2 (>39); GLUCOSE, FASTING 55 MG/DL (70-100); MAGNESIUM LEVEL 2.2 MG/DL (1.8-2.4); PHOSPHORUS LEVEL 4.4 MG/DL (2.5-4.9); PREALBUMIN 19.4 MG/DL (20.0-40.0); SODIUM LEVEL 140 MEQ/L (136-145); TOTAL PROTEIN 5.8 GM/DL (6.4-8.2)
== END ==
LOC: M SHH 11:22
DX: K65.1 Peritoneal abscess (principal); K50.814 Crohn's disease of both small and large intestine with abscess; E44.0 Moderate protein-calorie malnutrition
CPT/HCPCS: 83735

== ENCOUNTER → 2018-02-26 | Outpatient (REF) | payer MEDICARE ==
[2018-02-26 11:11] LABS: BASO % 0.5 % (0.0-1.0); EOS # 0.1 10^3/uL (0.0-0.50); EOS % 1.1 % (0.0-3.0); HEMATOCRIT 33.3 % (36.0-47.0); HEMOGLOBIN 10.7 g/dl (12.0-15.5); IMMATURE GRANULOCYTE % 0.3 % (0-3.0); LYMPH # 0.7 10^3/uL (1.5-4.5); MEAN CORPUSCULAR HEMOGLOBIN 28.7 pg (27.0-33.0); MEAN CORPUSCULAR HGB CONC 32.1 g/dl (32.0-36.5); MEAN CORPUSCULAR VOLUME 89.3 fl (80.0-96.0); MONO # 0.6 10^3/uL (0.0-0.8); MONO % 9.5 % (0.0-5.0); NEUTROPHILS # 4.7 10^3/uL (1.8-7.7); NEUTROPHILS % 77.6 % (36.0-66.0); PLATELET COUNT, AUTOMATED 294 10^3/uL (150-450); RED BLOOD COUNT 3.73 10^6/uL (4.00-5.40); RED CELL DISTRIBUTION WIDTH 14.7 % (11.5-14.5); WHITE BLOOD COUNT 6.1 10^3/uL (4.0-10.0)
[2018-02-26 11:18] LABS: ALBUMIN 1.8 GM/DL (3.2-5.2); ALBUMIN/GLOBULIN RATIO 0.45 (1.00-1.93); ALKALINE PHOSPHATASE 989 U/L (45-117); ALT/SGPT 45 U/L (12-78); ANION GAP 8 MEQ/L (8-16); AST/SGOT 40 U/L (7-37); BILIRUBIN,DIRECT 0.2 MG/DL (0.0-0.2); BILIRUBIN,TOTAL 0.5 MG/DL (0.2-1.0); BLOOD UREA NITROGEN 44 MG/DL (7-18); CALCIUM LEVEL 8.9 MG/DL (8.8-10.2); CARBON DIOXIDE LEVEL 25 MEQ/L (21-32); CHLORIDE LEVEL 107 MEQ/L (98-107); CREATININE FOR GFR 1.07 MG/DL (0.55-1.30); GLOMERULAR FILTRATION RATE 53.8 (>39); GLUCOSE, FASTING 72 MG/DL (70-100); MAGNESIUM LEVEL 2.1 MG/DL (1.8-2.4); PHOSPHORUS LEVEL 4.7 MG/DL (2.5-4.9); POTASSIUM SERUM 4.2 MEQ/L (3.5-5.1); PREALBUMIN 18.5 MG/DL (20.0-40.0); SODIUM LEVEL 140 MEQ/L (136-145); TOTAL PROTEIN 5.8 GM/DL (6.4-8.2)
== END ==
LOC: M SHH 10:30
DX: K50.814 Crohn's disease of both small and large intestine with abscess (principal); E44.0 Moderate protein-calorie malnutrition
CPT/HCPCS: 83735

== ENCOUNTER → 2018-03-05 | Outpatient (REF) | payer MEDICARE ==
[2018-03-05 12:07] LABS: BASO % 0.4 % (0.0-1.0); EOS # 0.1 10^3/uL (0.0-0.50); EOS % 1.2 % (0.0-3.0); HEMATOCRIT 33.7 % (36.0-47.0); HEMOGLOBIN 10.7 g/dl (12.0-15.5); IMMATURE GRANULOCYTE % 0.6 % (0-3.0); LYMPH # 0.6 10^3/uL (1.5-4.5); LYMPH % 13.1 % (24.0-44.0); MEAN CORPUSCULAR HEMOGLOBIN 28.5 pg (27.0-33.0); MEAN CORPUSCULAR HGB CONC 31.8 g/dl (32.0-36.5); MEAN CORPUSCULAR VOLUME 89.6 fl (80.0-96.0); MONO # 0.5 10^3/uL (0.0-0.8); MONO % 9.3 % (0.0-5.0); NEUTROPHILS # 3.6 10^3/uL (1.8-7.7); NEUTROPHILS % 75.4 % (36.0-66.0); PLATELET COUNT, AUTOMATED 288 10^3/uL (150-450); RED BLOOD COUNT 3.76 10^6/uL (4.00-5.40); RED CELL DISTRIBUTION WIDTH 14.7 % (11.5-14.5); WHITE BLOOD COUNT 4.8 10^3/uL (4.0-10.0)
[2018-03-05 13:59] LABS: ALBUMIN 1.7 GM/DL (3.2-5.2); ALKALINE PHOSPHATASE 1017 U/L (45-117); ALT/SGPT 58 U/L (12-78); ANION GAP 9 MEQ/L (8-16); AST/SGOT 55 U/L (7-37); BILIRUBIN,DIRECT 0.2 MG/DL (0.0-0.2); BILIRUBIN,TOTAL 0.4 MG/DL (0.2-1.0); BLOOD UREA NITROGEN 48 MG/DL (7-18); CALCIUM LEVEL 8.6 MG/DL (8.8-10.2); CARBON DIOXIDE LEVEL 25 MEQ/L (21-32); CHLORIDE LEVEL 105 MEQ/L (98-107); CREATININE FOR GFR 1.16 MG/DL (0.55-1.30); GLUCOSE, FASTING 62 MG/DL (70-100); MAGNESIUM LEVEL 2.4 MG/DL (1.8-2.4); PHOSPHORUS LEVEL 4.7 MG/DL (2.5-4.9); POTASSIUM SERUM 4.6 MEQ/L (3.5-5.1); SODIUM LEVEL 139 MEQ/L (136-145); TOTAL PROTEIN 5.9 GM/DL (6.4-8.2)
== END ==
LOC: M SHH 11:16
DX: K50.814 Crohn's disease of both small and large intestine with abscess (principal); E44.0 Moderate protein-calorie malnutrition; K65.1 Peritoneal abscess
CPT/HCPCS: 82248

== ENCOUNTER → 2018-03-12 | Outpatient (REF) | payer MEDICARE ==
[2018-03-12 14:29] LABS: HEMATOCRIT 34.1 % (36.0-47.0); HEMOGLOBIN 10.7 g/dl (12.0-15.5); MEAN CORPUSCULAR HEMOGLOBIN 28.5 pg (27.0-33.0); MEAN CORPUSCULAR HGB CONC 31.4 g/dl (32.0-36.5); MEAN CORPUSCULAR VOLUME 90.9 fl (80.0-96.0); PLATELET COUNT, AUTOMATED 309 10^3/uL (150-450); RED BLOOD COUNT 3.75 10^6/uL (4.00-5.40); RED CELL DISTRIBUTION WIDTH 15.5 % (11.5-14.5)
[2018-03-12 14:41] LABS: PROTHROMBIN TIME 16.4 SECONDS (12.1-14.4)
[2018-03-12 14:42] LABS: PARTIAL THROMBOPLASTIN TIME 34.9 SECONDS (25.4-37.6)
[2018-03-12 14:51] LABS: ANION GAP 10 MEQ/L (8-16); BLOOD UREA NITROGEN 41 MG/DL (7-18); CALCIUM LEVEL 8.1 MG/DL (8.8-10.2); CARBON DIOXIDE LEVEL 23 MEQ/L (21-32); CHLORIDE LEVEL 107 MEQ/L (98-107); CREATININE FOR GFR 1.26 MG/DL (0.55-1.30); GLOMERULAR FILTRATION RATE 44.6 (>39); GLUCOSE, FASTING 58 MG/DL (70-100); POTASSIUM SERUM 4.6 MEQ/L (3.5-5.1); SODIUM LEVEL 140 MEQ/L (136-145)
[2018-03-13 10:24] LABS: CARCINOEMBRYONIC ANTIGEN 2.6 NG/ML (<2.5)
[2018-03-13 10:53] LABS: CA19-9 TUMOR MARKER,CARBOHYDRA 16.7 U/ML (<35.0)
== END ==
LOC: M LAB REF 13:57
DX: K50.013 Crohn's disease of small intestine with fistula (principal); K65.1 Peritoneal abscess; E44.0 Moderate protein-calorie malnutrition
CPT/HCPCS: 82378

== ENCOUNTER → 2018-03-12 | Outpatient (REF) | payer MEDICARE ==
[2018-03-12 14:29] LABS: BASO % 0.3 % (0.0-1.0); EOS # 0.2 10^3/uL (0.0-0.50); EOS % 2.5 % (0.0-3.0); HEMATOCRIT 33.2 % (36.0-47.0); HEMOGLOBIN 10.7 g/dl (12.0-15.5); IMMATURE GRANULOCYTE % 0.3 % (0-3.0); LYMPH # 0.9 10^3/uL (1.5-4.5); LYMPH % 14.9 % (24.0-44.0); MEAN CORPUSCULAR HEMOGLOBIN 28.7 pg (27.0-33.0); MEAN CORPUSCULAR HGB CONC 32.2 g/dl (32.0-36.5); MONO # 0.6 10^3/uL (0.0-0.8); MONO % 9.3 % (0.0-5.0); NEUTROPHILS # 4.4 10^3/uL (1.8-7.7); NEUTROPHILS % 72.7 % (36.0-66.0); PLATELET COUNT, AUTOMATED 316 10^3/uL (150-450); RED BLOOD COUNT 3.73 10^6/uL (4.00-5.40); RED CELL DISTRIBUTION WIDTH 15.5 % (11.5-14.5)
[2018-03-12 15:10] LABS: BLOOD UREA NITROGEN 42 MG/DL (7-18); CARBON DIOXIDE LEVEL 24 MEQ/L (21-32); CHLORIDE LEVEL 107 MEQ/L (98-107); CREATININE FOR GFR 1.28 MG/DL (0.55-1.30); GLOMERULAR FILTRATION RATE 43.8 (>39); GLUCOSE, FASTING 56 MG/DL (70-100); POTASSIUM SERUM 4.6 MEQ/L (3.5-5.1); SODIUM LEVEL 140 MEQ/L (136-145)
[2018-03-12 15:11] LABS: ALBUMIN 1.7 GM/DL (3.2-5.2); ALBUMIN/GLOBULIN RATIO 0.43 (1.00-1.93); ALKALINE PHOSPHATASE 926 U/L (45-117); ALT/SGPT 58 U/L (12-78); ANION GAP 9 MEQ/L (8-16); AST/SGOT 57 U/L (7-37); BILIRUBIN,DIRECT 0.2 MG/DL (0.0-0.2); BILIRUBIN,TOTAL 0.3 MG/DL (0.2-1.0); CALCIUM LEVEL 8.1 MG/DL (8.8-10.2); MAGNESIUM LEVEL 2.2 MG/DL (1.8-2.4); PHOSPHORUS LEVEL 4.1 MG/DL (2.5-4.9); PREALBUMIN 18.8 MG/DL (20.0-40.0); TOTAL PROTEIN 5.7 GM/DL (6.4-8.2)
== END ==
LOC: M SHH 13:59
DX: K65.1 Peritoneal abscess (principal); K50.814 Crohn's disease of both small and large intestine with abscess; E44.0 Moderate protein-calorie malnutrition

== ENCOUNTER → 2018-03-19 | Outpatient (REF) | payer MEDICARE ==
[2018-03-19 10:47] LABS: BASO % 0.5 % (0.0-1.0); EOS % 0.9 % (0.0-3.0); HEMATOCRIT 31.1 % (36.0-47.0); HEMOGLOBIN 9.8 g/dl (12.0-15.5); IMMATURE GRANULOCYTE % 0.5 % (0-3.0); LYMPH # 0.6 10^3/uL (1.5-4.5); LYMPH % 13.2 % (24.0-44.0); MEAN CORPUSCULAR HEMOGLOBIN 28.4 pg (27.0-33.0); MEAN CORPUSCULAR HGB CONC 31.5 g/dl (32.0-36.5); MEAN CORPUSCULAR VOLUME 90.1 fl (80.0-96.0); MONO # 0.5 10^3/uL (0.0-0.8); MONO % 11.6 % (0.0-5.0); NEUTROPHILS # 3.2 10^3/uL (1.8-7.7); NEUTROPHILS % 73.3 % (36.0-66.0); PLATELET COUNT, AUTOMATED 262 10^3/uL (150-450); RED BLOOD COUNT 3.45 10^6/uL (4.00-5.40); RED CELL DISTRIBUTION WIDTH 16.1 % (11.5-14.5); WHITE BLOOD COUNT 4.4 10^3/uL (4.0-10.0)
[2018-03-19 10:53] LABS: ALBUMIN 1.7 GM/DL (3.2-5.2); ALBUMIN/GLOBULIN RATIO 0.49 (1.00-1.93); ALKALINE PHOSPHATASE 703 U/L (45-117); ALT/SGPT 27 U/L (12-78); ANION GAP 6 MEQ/L (8-16); AST/SGOT 26 U/L (7-37); BILIRUBIN,DIRECT 0.1 MG/DL (0.0-0.2); BILIRUBIN,TOTAL 0.3 MG/DL (0.2-1.0); BLOOD UREA NITROGEN 40 MG/DL (7-18); CALCIUM LEVEL 7.9 MG/DL (8.8-10.2); CARBON DIOXIDE LEVEL 25 MEQ/L (21-32); CHLORIDE LEVEL 109 MEQ/L (98-107); CREATININE FOR GFR 1.16 MG/DL (0.55-1.30); GAMMA GLUTAMYLTRANSPEPTIDASE 785 U/L (5-55); GLUCOSE, FASTING 82 MG/DL (70-100); MAGNESIUM LEVEL 2.2 MG/DL (1.8-2.4); PHOSPHORUS LEVEL 3.8 MG/DL (2.5-4.9); POTASSIUM SERUM 4.4 MEQ/L (3.5-5.1); SODIUM LEVEL 140 MEQ/L (136-145); TOTAL PROTEIN 5.2 GM/DL (6.4-8.2)
[2018-03-19 11:30] LABS: PREALBUMIN 15.8 MG/DL (20.0-40.0)
== END ==
LOC: M SHH 10:17
DX: K50.814 Crohn's disease of both small and large intestine with abscess (principal); E44.0 Moderate protein-calorie malnutrition
CPT/HCPCS: 82977

== ENCOUNTER → 2018-03-26 | Outpatient (REF) | payer MEDICARE ==
[2018-03-26 12:51] LABS: BASO % 0.1 % (0.0-1.0); EOS # 0.1 10^3/uL (0.0-0.50); EOS % 0.7 % (0.0-3.0); HEMATOCRIT 33.9 % (36.0-47.0); HEMOGLOBIN 10.5 g/dl (12.0-15.5); IMMATURE GRANULOCYTE % 0.3 % (0-3.0); LYMPH # 0.4 10^3/uL (1.5-4.5); LYMPH % 6.4 % (24.0-44.0); MEAN CORPUSCULAR HEMOGLOBIN 28.7 pg (27.0-33.0); MEAN CORPUSCULAR VOLUME 92.6 fl (80.0-96.0); MONO # 0.4 10^3/uL (0.0-0.8); MONO % 6.4 % (0.0-5.0); NEUTROPHILS # 5.9 10^3/uL (1.8-7.7); NEUTROPHILS % 86.1 % (36.0-66.0); PLATELET COUNT, AUTOMATED 288 10^3/uL (150-450); RED BLOOD COUNT 3.66 10^6/uL (4.00-5.40); RED CELL DISTRIBUTION WIDTH 16.5 % (11.5-14.5); WHITE BLOOD COUNT 6.9 10^3/uL (4.0-10.0)
[2018-03-26 13:17] LABS: ALBUMIN 1.8 GM/DL (3.2-5.2); ALBUMIN/GLOBULIN RATIO 0.46 (1.00-1.93); ALKALINE PHOSPHATASE 521 U/L (45-117); ALT/SGPT 20 U/L (12-78); ANION GAP 11 MEQ/L (8-16); AST/SGOT 18 U/L (7-37); BILIRUBIN,DIRECT 0.2 MG/DL (0.0-0.2); BILIRUBIN,TOTAL 0.3 MG/DL (0.2-1.0); BLOOD UREA NITROGEN 34 MG/DL (7-18); CALCIUM LEVEL 7.7 MG/DL (8.8-10.2); CARBON DIOXIDE LEVEL 23 MEQ/L (21-32); CHLORIDE LEVEL 107 MEQ/L (98-107); CREATININE FOR GFR 1.19 MG/DL (0.55-1.30); GLOMERULAR FILTRATION RATE 47.6 (>39); GLUCOSE, FASTING 73 MG/DL (70-100); PHOSPHORUS LEVEL 3.7 MG/DL (2.5-4.9); POTASSIUM SERUM 4.5 MEQ/L (3.5-5.1); PREALBUMIN 18.3 MG/DL (20.0-40.0); SODIUM LEVEL 141 MEQ/L (136-145); TOTAL PROTEIN 5.7 GM/DL (6.4-8.2)
== END ==
LOC: M LAB REF 11:42
DX: K50.814 Crohn's disease of both small and large intestine with abscess (principal); K65.1 Peritoneal abscess
CPT/HCPCS: 83735

== ENCOUNTER → 2018-04-02 | Outpatient (REF) | payer MEDICARE ==
[2018-04-02 12:57] LABS: BASO % 0.3 % (0.0-1.0); EOS # 0.1 10^3/uL (0.0-0.50); EOS % 0.7 % (0.0-3.0); HEMATOCRIT 31.1 % (36.0-47.0); HEMOGLOBIN 9.8 g/dl (12.0-15.5); IMMATURE GRANULOCYTE % 0.4 % (0-3.0); LYMPH # 0.6 10^3/uL (1.5-4.5); LYMPH % 8.3 % (24.0-44.0); MEAN CORPUSCULAR HEMOGLOBIN 28.7 pg (27.0-33.0); MEAN CORPUSCULAR HGB CONC 31.5 g/dl (32.0-36.5); MEAN CORPUSCULAR VOLUME 90.9 fl (80.0-96.0); MONO # 0.7 10^3/uL (0.0-0.8); MONO % 9.5 % (0.0-5.0); NEUTROPHILS # 5.7 10^3/uL (1.8-7.7); NEUTROPHILS % 80.8 % (36.0-66.0); PLATELET COUNT, AUTOMATED 301 10^3/uL (150-450); RED BLOOD COUNT 3.42 10^6/uL (4.00-5.40); RED CELL DISTRIBUTION WIDTH 16.5 % (11.5-14.5); WHITE BLOOD COUNT 7.1 10^3/uL (4.0-10.0)
[2018-04-02 12:59] LABS: ALBUMIN 1.7 GM/DL (3.2-5.2); ALBUMIN/GLOBULIN RATIO 0.47 (1.00-1.93); ALKALINE PHOSPHATASE 368 U/L (45-117); ALT/SGPT 19 U/L (12-78); ANION GAP 9 MEQ/L (8-16); AST/SGOT 16 U/L (7-37); BILIRUBIN,TOTAL 0.3 MG/DL (0.2-1.0); BLOOD UREA NITROGEN 30 MG/DL (7-18); CARBON DIOXIDE LEVEL 23 MEQ/L (21-32); CHLORIDE LEVEL 107 MEQ/L (98-107); CREATININE FOR GFR 1.08 MG/DL (0.55-1.30); GLOMERULAR FILTRATION RATE 53.2 (>39); GLUCOSE, FASTING 70 MG/DL (70-100); POTASSIUM SERUM 4.3 MEQ/L (3.5-5.1); SODIUM LEVEL 139 MEQ/L (136-145); TOTAL PROTEIN 5.3 GM/DL (6.4-8.2)
== END ==
LOC: M SHH 12:06
DX: E44.0 Moderate protein-calorie malnutrition (principal); E83.42 Hypomagnesemia; N18.3 Chronic kidney disease, stage 3 (moderate); K65.1 Peritoneal abscess; K50.814 Crohn's disease of both small and large intestine with abscess; D63.1 Anemia in chronic kidney disease
CPT/HCPCS: 83735

== ENCOUNTER → 2018-04-02 | Outpatient (REF) | payer MEDICARE ==
[2018-04-02 13:14] LABS: ALBUMIN 1.6 GM/DL (3.2-5.2); ALBUMIN/GLOBULIN RATIO 0.44 (1.00-1.93); ALKALINE PHOSPHATASE 363 U/L (45-117); ALT/SGPT 17 U/L (12-78); AST/SGOT 15 U/L (7-37); BILIRUBIN,DIRECT 0.1 MG/DL (0.0-0.2); BILIRUBIN,TOTAL 0.3 MG/DL (0.2-1.0); PHOSPHORUS LEVEL 3.7 MG/DL (2.5-4.9); PREALBUMIN 16.6 MG/DL (20.0-40.0); TOTAL PROTEIN 5.2 GM/DL (6.4-8.2)
== END ==
LOC: M SHH 12:08
DX: K65.1 Peritoneal abscess (principal); K50.814 Crohn's disease of both small and large intestine with abscess; E44.0 Moderate protein-calorie malnutrition

== ENCOUNTER → 2018-04-02 | Outpatient (REF) | payer MEDICARE ==
[2018-04-02 13:01] LABS: ALBUMIN 1.7 GM/DL (3.2-5.2); ANION GAP 9 MEQ/L (8-16); BLOOD UREA NITROGEN 31 MG/DL (7-18); CALCIUM LEVEL 8.2 MG/DL (8.8-10.2); CARBON DIOXIDE LEVEL 23 MEQ/L (21-32); CHLORIDE LEVEL 107 MEQ/L (98-107); GLOMERULAR FILTRATION RATE 52.1 (>39); GLUCOSE, FASTING 70 MG/DL (70-100); PHOSPHORUS LEVEL 3.5 MG/DL (2.5-4.9); POTASSIUM SERUM 4.3 MEQ/L (3.5-5.1); SODIUM LEVEL 139 MEQ/L (136-145)
[2018-04-02 13:09] LABS: TOTAL 25(OH) VITAMIN D 25.4 NG/ML (30.0-100.0)
== END ==
LOC: M SHH 12:09
DX: N18.3 Chronic kidney disease, stage 3 (moderate) (principal); E83.51 Hypocalcemia; D63.1 Anemia in chronic kidney disease

== ENCOUNTER → 2018-04-09 | Outpatient (REF) | payer MEDICARE ==
[~2018-04-09] MED LIST changes: +ACET500C PO; +ALLO100T PO; +AUGM875T28 PO; +CALC1CAP31 PO; +CALC600T34 PO; +CALC600T7 PO; +CALCI50TA PO; +CIPR-249 PO; +CIPR1.5I IV; +CIPR500S IV; +CIPR500T3 PO; +CORT10TA PO; +CYAN1000VL IM; +D32000TA PO; +FAMO40TA3 PO; +FE G325T PO; +FERR1TAB8 PO; +FLAG500T IV; +FLAG500T PO; +FOLI1TAB5 PO; +HEPA100PFS IV; +HEPARIN FLUSH IV; +HUMI40KI SC; +HYDR-3291 PO; +HYDR5TAB59 PO; +IMOD2TAB16 PO; +INDA125TA PO; +IRON28TA PO; -LIDOCAINE 2% INJ 100 MG/5 ML SDV (FOR ANES.) As Ordered; +MAG400TA PO; +MAGN1TAB25 PO; +MAGN30TA2 PO; +MAGN400T5 PO; +MECL-68 PO; +METAPKT PO; +METO-346 PO; +METR1INJ2 IV; -MIDAZOLAM INJ 2 MG/2 ML VIAL (J2250) As Ordered; -ONDANSETRON 4MG/2ML VIAL (J2405) As Ordered; +OXYC1TAB23 PO; +PRED10TA2 PO; +PRED20TA PO; +PRED20TAB PO; -PROPOFOL 200 MG/20 ML VIAL As Ordered; +PROT1TAB2 PO; +PROTPAK PO; +SALI0.9I2 IV; +TPN; +TPNINJ3 IV; +TYLE325T5 PO; +VICO5TAB16 PO; +VITA-122 PO; +VITA1DRO IM; +VITA200016 PO; +VITA500046 PO; +VITA500T PO; +VITATAB22 PO; +XARE20TA PO; +ZOFR4TAB16 PO; +[UNRECOGNIZED DRUG - CODE] IV; -fentaNYL 100 MCG/2 ML INJECTION (J3010) As Ordered
[2018-04-09 14:58] LABS: BASO % 0.2 % (0.0-1.0); EOS % 0.4 % (0.0-3.0); HEMATOCRIT 34.8 % (36.0-47.0); HEMOGLOBIN 10.8 g/dl (12.0-15.5); LYMPH # 0.4 10^3/uL (1.5-4.5); LYMPH % 7.6 % (24.0-44.0); MEAN CORPUSCULAR HEMOGLOBIN 28.6 pg (27.0-33.0); MEAN CORPUSCULAR VOLUME 92.1 fl (80.0-96.0); MONO # 0.3 10^3/uL (0.0-0.8); MONO % 5.9 % (0.0-5.0); NEUTROPHILS # 4.5 10^3/uL (1.8-7.7); NEUTROPHILS % 85.5 % (36.0-66.0); PLATELET COUNT, AUTOMATED 322 10^3/uL (150-450); RED BLOOD COUNT 3.78 10^6/uL (4.00-5.40); WHITE BLOOD COUNT 5.3 10^3/uL (4.0-10.0)
[2018-04-09 15:21] LABS: ALBUMIN 1.9 GM/DL (3.2-5.2); BILIRUBIN,DIRECT 0.1 MG/DL (0.0-0.2); BILIRUBIN,TOTAL 0.3 MG/DL (0.2-1.0); CALCIUM LEVEL 8.3 MG/DL (8.8-10.2); CREATININE FOR GFR 1.17 MG/DL (0.55-1.30); GLOMERULAR FILTRATION RATE 48.5 (>39); MAGNESIUM LEVEL 2.1 MG/DL (1.8-2.4); TOTAL PROTEIN 5.8 GM/DL (6.4-8.2)
== END ==
LOC: M SHH 14:21
PROVIDERS: ATTEND Internal Medicine Gastroenterology
DX: K65.1 Peritoneal abscess (principal); K50.814 Crohn's disease of both small and large intestine with abscess

== ENCOUNTER → 2018-04-12 | Outpatient (CLI) | payer MEDICARE ==
[~2018-04-12] MED LIST changes: +LIDOCAINE 1% MDV 20ML VIAL As Ordered ONE
--- NOTE | 2018-04-12 16:33 | REP ---
PICC LINE EXCHANGE The procedure was performed under the direct supervision of Dr. Rudd. The risks and benefits of the procedure were explained to the patient and informed consent was obtained. The patient had a PICC line inserted in the left brachial vein on 01/11/2018. One of the ports will not flush. The patient is referred for exchange of the PICC line. An existing catheter and insertion site were prepped and draped in a sterile fashion. A 0.018 guidewire was inserted into the existing catheter. The catheter was removed and a 5.5 Montserratian dilator and peel-away sheath was inserted over the guide wire. A 5-Montserratian dual lumen catheter was cut to length of 40 cm. The dilator was removed and the catheter was inserted over the guide wire with the tip ending in the SVC. The peel-away sheath was removed. The catheter initially flushed and aspirated well but then would no longer aspirate. The catheter was pulled back approximately a centimeter. The catheter would then aspirate and flush. The catheter was flushed with heparinized saline as per Hospital protocol. The catheter was affixed to the skin and a sterile dressing was applied. 0.3 minutes of fluoroscopy time was utilized for this procedure. Reviewed by KRISS Hartley 04/12/2018 04:14 P Electronically Signed by Dane Rudd MD 04/12/2018 04:24 P
== END ==
LOC: M RADPRO 13:54
PROVIDERS: ATTEND Internal Medicine Gastroenterology
DX: K50.814 Crohn's disease of both small and large intestine with abscess (principal); K65.1 Peritoneal abscess; E44.0 Moderate protein-calorie malnutrition

== ENCOUNTER → 2018-04-16 | Outpatient (REF) | payer MEDICARE ==
[2018-04-16 14:54] LABS: BASO % 0.4 % (0.0-1.0); EOS % 0.8 % (0.0-3.0); HEMATOCRIT 31.6 % (36.0-47.0); HEMOGLOBIN 10.1 g/dl (12.0-15.5); IMMATURE GRANULOCYTE % 0.8 % (0-3.0); LYMPH # 0.6 10^3/uL (1.5-4.5); LYMPH % 11.4 % (24.0-44.0); MEAN CORPUSCULAR HEMOGLOBIN 29.2 pg (27.0-33.0); MEAN CORPUSCULAR VOLUME 91.3 fl (80.0-96.0); MONO # 0.7 10^3/uL (0.0-0.8); MONO % 13.9 % (0.0-5.0); NEUTROPHILS # 3.6 10^3/uL (1.8-7.7); NEUTROPHILS % 72.7 % (36.0-66.0); PLATELET COUNT, AUTOMATED 309 10^3/uL (150-450); RED BLOOD COUNT 3.46 10^6/uL (4.00-5.40); RED CELL DISTRIBUTION WIDTH 16.2 % (11.5-14.5); WHITE BLOOD COUNT 4.9 10^3/uL (4.0-10.0)
[2018-04-16 15:23] LABS: ALBUMIN 1.7 GM/DL (3.2-5.2); ALBUMIN/GLOBULIN RATIO 0.49 (1.00-1.93); ALKALINE PHOSPHATASE 372 U/L (45-117); ALT/SGPT 19 U/L (12-78); ANION GAP 5 MEQ/L (8-16); AST/SGOT 18 U/L (7-37); BILIRUBIN,DIRECT 0.1 MG/DL (0.0-0.2); BILIRUBIN,TOTAL 0.3 MG/DL (0.2-1.0); BLOOD UREA NITROGEN 34 MG/DL (7-18); CALCIUM LEVEL 7.9 MG/DL (8.8-10.2); CARBON DIOXIDE LEVEL 25 MEQ/L (21-32); CHLORIDE LEVEL 110 MEQ/L (98-107); CREATININE FOR GFR 1.09 MG/DL (0.55-1.30); GLOMERULAR FILTRATION RATE 52.7 (>39); GLUCOSE, FASTING 67 MG/DL (70-100); PHOSPHORUS LEVEL 3.9 MG/DL (2.5-4.9); POTASSIUM SERUM 4.7 MEQ/L (3.5-5.1); PREALBUMIN 18.4 MG/DL (20.0-40.0); SODIUM LEVEL 140 MEQ/L (136-145); TOTAL PROTEIN 5.2 GM/DL (6.4-8.2)
== END ==
LOC: M SHH 14:27
DX: K65.1 Peritoneal abscess (principal); K50.814 Crohn's disease of both small and large intestine with abscess; E44.0 Moderate protein-calorie malnutrition; N18.3 Chronic kidney disease, stage 3 (moderate); D63.1 Anemia in chronic kidney disease
CPT/HCPCS: 83550

== ENCOUNTER → 2018-04-16 | Outpatient (REF) | payer MEDICARE ==
[2018-04-16 15:20] LABS: FERRITIN 133 NG/ML (8-252); IRON (FE) 51 UG/DL (50-170); PERCENT SATURATION 33.3 % (13.2-45.0); TOTAL IRON BINDING CAPACITY 153 UG/DL (250-450)
== END ==
LOC: M SHH 14:23
DX: N18.3 Chronic kidney disease, stage 3 (moderate) (principal); D63.1 Anemia in chronic kidney disease

== ENCOUNTER → 2018-04-30 | Outpatient (REF) | payer MEDICARE ==
[~2018-04-30] MED LIST changes: +FOLI1TAB11 PO; -FOLI1TAB5 PO; -LIDOCAINE 1% MDV 20ML VIAL As Ordered ONE
[2018-04-30 14:00] LABS: BASO % 0.4 % (0.0-1.0); EOS % 0.7 % (0.0-3.0); HEMOGLOBIN 10.5 g/dl (12.0-15.5); LYMPH # 0.6 10^3/uL (1.5-4.5); LYMPH % 9.7 % (24.0-44.0); MEAN CORPUSCULAR HEMOGLOBIN 29.1 pg (27.0-33.0); MEAN CORPUSCULAR HGB CONC 31.8 g/dl (32.0-36.5); MEAN CORPUSCULAR VOLUME 91.4 fl (80.0-96.0); MONO # 0.6 10^3/uL (0.0-0.8); MONO % 10.7 % (0.0-5.0); NEUTROPHILS # 4.4 10^3/uL (1.8-7.7); NEUTROPHILS % 78.1 % (36.0-66.0); PLATELET COUNT, AUTOMATED 261 10^3/uL (150-450); RED BLOOD COUNT 3.61 10^6/uL (4.00-5.40); WHITE BLOOD COUNT 5.7 10^3/uL (4.0-10.0)
[2018-04-30 14:23] LABS: ALBUMIN 1.8 GM/DL (3.2-5.2); ALT/SGPT 17 U/L (12-78); BILIRUBIN,DIRECT 0.2 MG/DL (0.0-0.2); BILIRUBIN,TOTAL 0.3 MG/DL (0.2-1.0); BLOOD UREA NITROGEN 33 MG/DL (7-18); CALCIUM LEVEL 7.8 MG/DL (8.8-10.2); CARBON DIOXIDE LEVEL 23 MEQ/L (21-32); CHLORIDE LEVEL 109 MEQ/L (98-107); CREATININE FOR GFR 0.97 MG/DL (0.55-1.30); GLOMERULAR FILTRATION RATE > 60.0 (>39); GLUCOSE, FASTING 63 MG/DL (70-100); MAGNESIUM LEVEL 1.9 MG/DL (1.8-2.4); PHOSPHORUS LEVEL 3.9 MG/DL (2.5-4.9); POTASSIUM SERUM 4.5 MEQ/L (3.5-5.1); PREALBUMIN 17.4 MG/DL (20.0-40.0); SODIUM LEVEL 141 MEQ/L (136-145); TOTAL PROTEIN 5.2 GM/DL (6.4-8.2)
== END ==
LOC: M SHH 13:28 → M LAB REF 13:28
PROVIDERS: ATTEND Internal Medicine Gastroenterology
DX: K65.1 Peritoneal abscess (principal); K50.814 Crohn's disease of both small and large intestine with abscess; E44.0 Moderate protein-calorie malnutrition

== ENCOUNTER → 2018-05-07 | Outpatient (REF) | payer MEDICARE ==
[2018-05-07 12:57] LABS: BASO % 0.2 % (0.0-1.0); EOS % 0.5 % (0.0-3.0); HEMATOCRIT 32.7 % (36.0-47.0); HEMOGLOBIN 10.2 g/dl (12.0-15.5); LYMPH # 0.4 10^3/uL (1.5-4.5); LYMPH % 6.6 % (24.0-44.0); MEAN CORPUSCULAR HEMOGLOBIN 28.5 pg (27.0-33.0); MEAN CORPUSCULAR HGB CONC 31.2 g/dl (32.0-36.5); MEAN CORPUSCULAR VOLUME 91.3 fl (80.0-96.0); MONO # 0.8 10^3/uL (0.0-0.8); NEUTROPHILS # 5.2 10^3/uL (1.8-7.7); NEUTROPHILS % 80.4 % (36.0-66.0); PLATELET COUNT, AUTOMATED 249 10^3/uL (150-450); RED BLOOD COUNT 3.58 10^6/uL (4.00-5.40); WHITE BLOOD COUNT 6.4 10^3/uL (4.0-10.0)
[2018-05-07 13:17] LABS: ALBUMIN 1.7 GM/DL (3.2-5.2); BILIRUBIN,DIRECT 0.2 MG/DL (0.0-0.2); BILIRUBIN,TOTAL 0.4 MG/DL (0.2-1.0); CALCIUM LEVEL 8.1 MG/DL (8.8-10.2); CREATININE FOR GFR 1.04 MG/DL (0.55-1.30); GLOMERULAR FILTRATION RATE 55.6 (>39); MAGNESIUM LEVEL 2.1 MG/DL (1.8-2.4); PHOSPHORUS LEVEL 3.7 MG/DL (2.5-4.9); POTASSIUM SERUM 4.4 MEQ/L (3.5-5.1); PREALBUMIN 12.2 MG/DL (20.0-40.0); TOTAL PROTEIN 5.1 GM/DL (6.4-8.2)
== END ==
LOC: M SHH 12:35
PROVIDERS: ATTEND Internal Medicine Gastroenterology
DX: K50.814 Crohn's disease of both small and large intestine with abscess (principal); E44.0 Moderate protein-calorie malnutrition

== ENCOUNTER → 2018-05-14 | Outpatient (REF) | payer MEDICARE ==
[2018-05-14 13:13] LABS: BASO % 0.4 % (0.0-1.0); EOS % 0.7 % (0.0-3.0); HEMATOCRIT 31.7 % (36.0-47.0); HEMOGLOBIN 10.1 g/dl (12.0-15.5); LYMPH # 0.5 10^3/uL (1.5-4.5); MEAN CORPUSCULAR HEMOGLOBIN 28.8 pg (27.0-33.0); MEAN CORPUSCULAR HGB CONC 31.9 g/dl (32.0-36.5); MEAN CORPUSCULAR VOLUME 90.3 fl (80.0-96.0); MONO # 0.5 10^3/uL (0.0-0.8); NEUTROPHILS # 4.6 10^3/uL (1.8-7.7); NEUTROPHILS % 80.5 % (36.0-66.0); PLATELET COUNT, AUTOMATED 328 10^3/uL (150-450); RED BLOOD COUNT 3.51 10^6/uL (4.00-5.40); WHITE BLOOD COUNT 5.7 10^3/uL (4.0-10.0)
[2018-05-14 13:22] LABS: BLOOD UREA NITROGEN 37 MG/DL (7-18); CREATININE FOR GFR 0.94 MG/DL (0.55-1.30); GLUCOSE, FASTING 77 MG/DL (70-100)
[2018-05-14 13:23] LABS: ALBUMIN 1.7 GM/DL (3.2-5.2); ALT/SGPT 17 U/L (12-78); BILIRUBIN,DIRECT 0.2 MG/DL (0.0-0.2); BILIRUBIN,TOTAL 0.2 MG/DL (0.2-1.0); CALCIUM LEVEL 8.2 MG/DL (8.8-10.2); CARBON DIOXIDE LEVEL 23 MEQ/L (21-32); CHLORIDE LEVEL 110 MEQ/L (98-107); GLOMERULAR FILTRATION RATE > 60.0 (>39); MAGNESIUM LEVEL 2.2 MG/DL (1.8-2.4); POTASSIUM SERUM 4.8 MEQ/L (3.5-5.1); PREALBUMIN 14.2 MG/DL (20.0-40.0); SODIUM LEVEL 141 MEQ/L (136-145); TOTAL PROTEIN 5.1 GM/DL (6.4-8.2)
== END ==
LOC: M LAB REF 12:15 → M SHH 12:15
PROVIDERS: ATTEND Internal Medicine Gastroenterology
DX: K65.1 Peritoneal abscess (principal); K50.814 Crohn's disease of both small and large intestine with abscess; E44.0 Moderate protein-calorie malnutrition

== ENCOUNTER → 2018-05-21 | Outpatient (REF) | payer MEDICARE ==
[2018-05-21 11:01] LABS: BASO % 0.3 % (0.0-1.0); EOS # 0.1 10^3/uL (0.0-0.50); HEMATOCRIT 33.4 % (36.0-47.0); HEMOGLOBIN 10.6 g/dl (12.0-15.5); LYMPH # 0.8 10^3/uL (1.5-4.5); MEAN CORPUSCULAR HEMOGLOBIN 28.9 pg (27.0-33.0); MEAN CORPUSCULAR HGB CONC 31.7 g/dl (32.0-36.5); MONO # 0.6 10^3/uL (0.0-0.8); MONO % 10.2 % (0.0-5.0); NEUTROPHILS # 4.5 10^3/uL (1.8-7.7); NEUTROPHILS % 75.2 % (36.0-66.0); PLATELET COUNT, AUTOMATED 312 10^3/uL (150-450); RED BLOOD COUNT 3.67 10^6/uL (4.00-5.40)
[2018-05-21 11:27] LABS: ALBUMIN 1.9 GM/DL (3.2-5.2); BILIRUBIN,DIRECT 0.2 MG/DL (0.0-0.2); BILIRUBIN,TOTAL 0.3 MG/DL (0.2-1.0); CALCIUM LEVEL 8.1 MG/DL (8.8-10.2); CREATININE FOR GFR 1.07 MG/DL (0.55-1.30); GLOMERULAR FILTRATION RATE 53.8 (>39); PHOSPHORUS LEVEL 4.2 MG/DL (2.5-4.9); POTASSIUM SERUM 4.4 MEQ/L (3.5-5.1); PREALBUMIN 15.8 MG/DL (20.0-40.0); TOTAL PROTEIN 5.2 GM/DL (6.4-8.2)
== END ==
LOC: M SHH 10:40 → M LAB REF 10:40
PROVIDERS: ATTEND Internal Medicine Gastroenterology
DX: K65.1 Peritoneal abscess (principal); K50.814 Crohn's disease of both small and large intestine with abscess; E44.0 Moderate protein-calorie malnutrition

== ENCOUNTER → 2018-05-28 | Outpatient (REF) | payer MEDICARE ==
[2018-05-28 11:21] LABS: BASO % 0.2 % (0.0-1.0); EOS # 0.1 10^3/uL (0.0-0.50); HEMATOCRIT 31.9 % (36.0-47.0); HEMOGLOBIN 10.3 g/dl (12.0-15.5); LYMPH # 0.4 10^3/uL (1.5-4.5); LYMPH % 8.5 % (24.0-44.0); MEAN CORPUSCULAR HEMOGLOBIN 28.9 pg (27.0-33.0); MEAN CORPUSCULAR HGB CONC 32.3 g/dl (32.0-36.5); MEAN CORPUSCULAR VOLUME 89.6 fl (80.0-96.0); MONO # 0.5 10^3/uL (0.0-0.8); MONO % 10.1 % (0.0-5.0); NEUTROPHILS % 79.6 % (36.0-66.0); PLATELET COUNT, AUTOMATED 241 10^3/uL (150-450); RED BLOOD COUNT 3.56 10^6/uL (4.00-5.40); WHITE BLOOD COUNT 5.1 10^3/uL (4.0-10.0)
[2018-05-28 11:58] LABS: ALBUMIN 1.9 GM/DL (3.2-5.2); BILIRUBIN,DIRECT 0.2 MG/DL (0.0-0.2); BILIRUBIN,TOTAL 0.3 MG/DL (0.2-1.0); CALCIUM LEVEL 8.2 MG/DL (8.8-10.2); CREATININE FOR GFR 1.04 MG/DL (0.55-1.30); GLOMERULAR FILTRATION RATE 55.6 (>39); MAGNESIUM LEVEL 2.1 MG/DL (1.8-2.4); PHOSPHORUS LEVEL 4.1 MG/DL (2.5-4.9); POTASSIUM SERUM 4.6 MEQ/L (3.5-5.1); PREALBUMIN 14.9 MG/DL (20.0-40.0); TOTAL PROTEIN 4.9 GM/DL (6.4-8.2)
== END ==
LOC: M SHH 10:28
PROVIDERS: ATTEND Internal Medicine Gastroenterology
DX: K50.814 Crohn's disease of both small and large intestine with abscess (principal); E44.0 Moderate protein-calorie malnutrition; K65.1 Peritoneal abscess

== ENCOUNTER → 2018-05-31 | Outpatient (CLI) | payer MEDICARE ==
--- NOTE | 2018-06-01 15:19 | ECHO ---
DATE OF PROCEDURE: 05/31/2018 REFERRING PHYSICIAN: Cezar Olvera MD INDICATION: Exertional dyspnea, systemic hypertension, preoperative clearance. HEIGHT: 5 feet 1 inches WEIGHT: 126 pounds 2D MEASUREMENTS: Left atrium: 3.6 cm LVOT: 2.1 cm Ventricular septum: 1.06 cm Posterior wall: 1.10 cm Left ventricle diastole: 4.2 cm Aortic root: 3.2 cm Inferior vena cava: 1.1 cm DOPPLER MEASUREMENTS: Aortic valve velocity: 134 cm/s LVOT velocity: 84.2 cm/s LVOT VTI: 16.1 cm Mitral E velocity: 84.3 cm/s Mitral A velocity: 78.1 cm/s Pulmonary artery systolic pressure: 43 mmHg by pulmonary acceleration time method. MITRAL ANNULAR TISSUE DOPPLER: E prime septal: 6.3 cm/s E prime lateral: 6.4 cm/s DESCRIPTION: Rhythm was sinus. Image quality was fair. This was a 2D, M-mode, color flow Doppler and pulse wave Doppler examination that included mitral annular tissue Doppler. CONCLUSIONS: 1. Normal left ventricle internal dimensions and wall thickness. Normal regional left ventricle (LV) wall motion and wall thickening. Normal LV systolic function. Left ventricular ejection fraction (LVEF) of 60% by visual estimate. Grade 1 LV diastolic dysfunction. 2. Moderate aortic valve sclerosis of a three-cuspid aortic valve. No aortic stenosis or regurgitation. 3. Moderate mitral annular calcification. No mitral stenosis or regurgitation. 4. Suggestive of moderate elevation of pulmonary artery systolic pressure (43 mmHg). Normal right ventricle size and systolic function. 5. Central venous pressure estimated to be 0 - 5 mmHg. 6. Left pleural effusion. 7. Small circumferential pericardial effusion. The pericardial effusion measures 0.6 cm over the lateral portion of the right ventricle free wall. No diastolic chamber collapse. No significant respiratory variation of intracardiac velocities. 8. Normal size of the atria.
== END ==
LOC: M CARPUL 11:15
PROVIDERS: ATTEND Family Medicine
DX: Z01.818 Encounter for other preprocedural examination (principal); R06.09 Other forms of dyspnea; I10 Essential (primary) hypertension

== ENCOUNTER 2018-06-14 16:29 | Emergency (ER) | payer MEDICARE ==
--- NOTE | 2018-06-14 18:29 | REP ---
LEFT TIBIA FIBULA, THREE VIEWS: HISTORY: Fall. There is no acute fracture or dislocation. The joint spaces are normal in appearance. IMPRESSION:There is no acute fracture or dislocation. Electronically Signed by Albert Cid MD 06/14/2018 06:30 P
[2018-06-14] MEDS ORDERED: LIDOCAINE 1% MDV 20ML VIAL SC ONE (18:45)
[2018-06-14 19:08] VITALS: BP 132/70
== END 2018-06-14 19:47 | disposition home or self-care (01) ==
LOC: M ED 16:29 → EDBD 16:29 → EDSEX 16:29 → M ED 19:47
DX: S81.812A Laceration without foreign body, left lower leg, initial encounter (principal); W19.XXXA Unspecified fall, initial encounter; Y92.9 Unspecified place or not applicable; Y93.9 Activity, unspecified; Y99.9 Unspecified external cause status; K50.919 Crohn's disease, unspecified, with unspecified complications; D64.9 Anemia, unspecified; Z86.718 Personal history of other venous thrombosis and embolism; Z79.899 Other long term (current) drug therapy; Z88.2 Allergy status to sulfonamides; Z88.1 Allergy status to other antibiotic agents; Z88.8 Allergy status to other drugs, medicaments and biological substances

== ENCOUNTER → 2018-06-18 | Outpatient (REF) | payer MEDICARE ==
[2018-06-18 11:53] LABS: ALBUMIN 1.4 GM/DL (3.2-5.2); ALT/SGPT 30 U/L (12-78); BILIRUBIN,DIRECT 0.2 MG/DL (0.0-0.2); BILIRUBIN,TOTAL 0.4 MG/DL (0.2-1.0); BLOOD UREA NITROGEN 37 MG/DL (7-18); CALCIUM LEVEL 8.4 MG/DL (8.8-10.2); CARBON DIOXIDE LEVEL 26 MEQ/L (21-32); CHLORIDE LEVEL 109 MEQ/L (98-107); CREATININE FOR GFR 0.94 MG/DL (0.55-1.30); GAMMA GLUTAMYLTRANSPEPTIDASE 716 U/L (5-55); GLOMERULAR FILTRATION RATE > 60.0 (>39); GLUCOSE, FASTING 72 MG/DL (70-100); MAGNESIUM LEVEL 2.1 MG/DL (1.8-2.4); PHOSPHORUS LEVEL 2.9 MG/DL (2.5-4.9); POTASSIUM SERUM 4.4 MEQ/L (3.5-5.1); PREALBUMIN 11.8 MG/DL (20.0-40.0); SODIUM LEVEL 141 MEQ/L (136-145); TOTAL PROTEIN 5.7 GM/DL (6.4-8.2)
[2018-06-18 12:05] LABS: BASO % 0.2 % (0.0-1.0); EOS # 0.1 10^3/uL (0.0-0.50); HEMATOCRIT 27.4 % (36.0-47.0); HEMOGLOBIN 8.6 g/dl (12.0-15.5); LYMPH # 0.6 10^3/uL (1.5-4.5); LYMPH % 9.5 % (24.0-44.0); MEAN CORPUSCULAR HGB CONC 31.4 g/dl (32.0-36.5); MEAN CORPUSCULAR VOLUME 92.3 fl (80.0-96.0); MONO # 0.7 10^3/uL (0.0-0.8); MONO % 10.4 % (0.0-5.0); NEUTROPHILS # 4.9 10^3/uL (1.8-7.7); NEUTROPHILS % 78.3 % (36.0-66.0); PLATELET COUNT, AUTOMATED 344 10^3/uL (150-450); RED BLOOD COUNT 2.97 10^6/uL (4.00-5.40); WHITE BLOOD COUNT 6.2 10^3/uL (4.0-10.0)
== END ==
LOC: M LAB REF 11:14 → M SHH 11:14
PROVIDERS: ATTEND Internal Medicine Gastroenterology
DX: K65.1 Peritoneal abscess (principal); K50.814 Crohn's disease of both small and large intestine with abscess; E44.0 Moderate protein-calorie malnutrition

== ENCOUNTER → 2018-06-25 | Outpatient (REF) | payer MEDICARE ==
[2018-06-25 12:59] LABS: BASO % 0.4 % (0.0-1.0); EOS # 0.1 10^3/uL (0.0-0.50); EOS % 1.6 % (0.0-3.0); HEMATOCRIT 28.9 % (36.0-47.0); HEMOGLOBIN 9.1 g/dl (12.0-15.5); LYMPH # 0.8 10^3/uL (1.5-4.5); LYMPH % 15.8 % (24.0-44.0); MEAN CORPUSCULAR HEMOGLOBIN 28.4 pg (27.0-33.0); MEAN CORPUSCULAR HGB CONC 31.5 g/dl (32.0-36.5); MEAN CORPUSCULAR VOLUME 90.3 fl (80.0-96.0); MONO # 0.5 10^3/uL (0.0-0.8); MONO % 10.5 % (0.0-5.0); NEUTROPHILS # 3.7 10^3/uL (1.8-7.7); NEUTROPHILS % 71.3 % (36.0-66.0); PLATELET COUNT, AUTOMATED 337 10^3/uL (150-450); WHITE BLOOD COUNT 5.1 10^3/uL (4.0-10.0)
[2018-06-25 13:36] LABS: ALBUMIN 1.6 GM/DL (3.2-5.2); BILIRUBIN,DIRECT 0.2 MG/DL (0.0-0.2); BILIRUBIN,TOTAL 0.3 MG/DL (0.2-1.0); CALCIUM LEVEL 8.1 MG/DL (8.8-10.2); CREATININE FOR GFR 0.99 MG/DL (0.55-1.30); GLOMERULAR FILTRATION RATE 58.9 (>39); MAGNESIUM LEVEL 2.4 MG/DL (1.8-2.4); PHOSPHORUS LEVEL 3.5 MG/DL (2.5-4.9); POTASSIUM SERUM 4.7 MEQ/L (3.5-5.1); PREALBUMIN 17.9 MG/DL (20.0-40.0); TOTAL PROTEIN 6.1 GM/DL (6.4-8.2)
== END ==
LOC: M SHH 11:51
PROVIDERS: ATTEND Internal Medicine Gastroenterology
DX: K65.1 Peritoneal abscess (principal); E44.0 Moderate protein-calorie malnutrition; K50.814 Crohn's disease of both small and large intestine with abscess

== ENCOUNTER → 2018-07-02 | Outpatient (REF) | payer MEDICARE ==
[2018-07-02 12:18] LABS: BASO % 0.8 % (0.0-1.0); EOS # 0.2 10^3/uL (0.0-0.50); EOS % 4.7 % (0.0-3.0); HEMATOCRIT 30.8 % (36.0-47.0); HEMOGLOBIN 9.9 g/dl (12.0-15.5); LYMPH % 25.9 % (24.0-44.0); MEAN CORPUSCULAR HGB CONC 32.1 g/dl (32.0-36.5); MEAN CORPUSCULAR VOLUME 90.3 fl (80.0-96.0); MONO # 0.4 10^3/uL (0.0-0.8); MONO % 9.9 % (0.0-5.0); NEUTROPHILS # 2.2 10^3/uL (1.8-7.7); NEUTROPHILS % 58.2 % (36.0-66.0); PLATELET COUNT, AUTOMATED 268 10^3/uL (150-450); RED BLOOD COUNT 3.41 10^6/uL (4.00-5.40); WHITE BLOOD COUNT 3.8 10^3/uL (4.0-10.0)
[2018-07-02 14:06] LABS: ALBUMIN 1.6 GM/DL (3.2-5.2); BILIRUBIN,DIRECT 0.1 MG/DL (0.0-0.2); BILIRUBIN,TOTAL 0.3 MG/DL (0.2-1.0); CALCIUM LEVEL 8.3 MG/DL (8.8-10.2); CREATININE FOR GFR 1.06 MG/DL (0.55-1.30); GLOMERULAR FILTRATION RATE 54.4 (>39); MAGNESIUM LEVEL 2.2 MG/DL (1.8-2.4); PHOSPHORUS LEVEL 4.1 MG/DL (2.5-4.9); POTASSIUM SERUM 4.5 MEQ/L (3.5-5.1); PREALBUMIN 20.9 MG/DL (20.0-40.0); TOTAL PROTEIN 5.9 GM/DL (6.4-8.2)
== END ==
LOC: M LAB REF 11:32 → M SHH 11:32
PROVIDERS: ATTEND Internal Medicine Gastroenterology
DX: K65.1 Peritoneal abscess (principal); K50.814 Crohn's disease of both small and large intestine with abscess; E44.0 Moderate protein-calorie malnutrition

== ENCOUNTER → 2018-07-09 | Outpatient (REF) | payer MEDICARE ==
[2018-07-09 12:47] LABS: BASO % 0.2 % (0.0-1.0); EOS # 0.1 10^3/uL (0.0-0.50); EOS % 2.9 % (0.0-3.0); LYMPH # 0.8 10^3/uL (1.5-4.5); LYMPH % 18.6 % (24.0-44.0); MEAN CORPUSCULAR HGB CONC 31.3 g/dl (32.0-36.5); MEAN CORPUSCULAR VOLUME 92.8 fl (80.0-96.0); MONO # 0.5 10^3/uL (0.0-0.8); MONO % 11.5 % (0.0-5.0); NEUTROPHILS # 2.7 10^3/uL (1.8-7.7); NEUTROPHILS % 66.6 % (36.0-66.0); PLATELET COUNT, AUTOMATED 223 10^3/uL (150-450); RED BLOOD COUNT 3.45 10^6/uL (4.00-5.40); WHITE BLOOD COUNT 4.1 10^3/uL (4.0-10.0)
[2018-07-09 13:27] LABS: ALBUMIN 1.5 GM/DL (3.2-5.2); ALT/SGPT 56 U/L (12-78); BILIRUBIN,DIRECT 0.2 MG/DL (0.0-0.2); BILIRUBIN,TOTAL 0.5 MG/DL (0.2-1.0); BLOOD UREA NITROGEN 54 MG/DL (7-18); CALCIUM LEVEL 8.2 MG/DL (8.8-10.2); CARBON DIOXIDE LEVEL 22 MEQ/L (21-32); CHLORIDE LEVEL 109 MEQ/L (98-107); CREATININE FOR GFR 0.93 MG/DL (0.55-1.30); GLOMERULAR FILTRATION RATE > 60.0 (>39); GLUCOSE, FASTING 78 MG/DL (70-100); MAGNESIUM LEVEL 2.1 MG/DL (1.8-2.4); PHOSPHORUS LEVEL 3.5 MG/DL (2.5-4.9); POTASSIUM SERUM 4.6 MEQ/L (3.5-5.1); PREALBUMIN 13.9 MG/DL (20.0-40.0); SODIUM LEVEL 140 MEQ/L (136-145); TOTAL PROTEIN 5.6 GM/DL (6.4-8.2)
== END ==
LOC: M SHH 11:13 → M LAB REF 11:13
PROVIDERS: ATTEND Internal Medicine Gastroenterology
DX: K65.1 Peritoneal abscess (principal); K50.814 Crohn's disease of both small and large intestine with abscess; E44.0 Moderate protein-calorie malnutrition

== ENCOUNTER → 2018-07-16 | Outpatient (REF) | payer MEDICARE ==
[2018-07-16 11:24] LABS: BASO % 0.3 % (0.0-1.0); EOS # 0.1 10^3/uL (0.0-0.50); EOS % 3.3 % (0.0-3.0); HEMATOCRIT 32.3 % (36.0-47.0); HEMOGLOBIN 10.1 g/dl (12.0-15.5); LYMPH # 0.7 10^3/uL (1.5-4.5); LYMPH % 18.8 % (24.0-44.0); MEAN CORPUSCULAR HEMOGLOBIN 28.8 pg (27.0-33.0); MEAN CORPUSCULAR HGB CONC 31.3 g/dl (32.0-36.5); MONO # 0.3 10^3/uL (0.0-0.8); MONO % 8.6 % (0.0-5.0); NEUTROPHILS # 2.5 10^3/uL (1.8-7.7); NEUTROPHILS % 68.7 % (36.0-66.0); PLATELET COUNT, AUTOMATED 225 10^3/uL (150-450); RED BLOOD COUNT 3.51 10^6/uL (4.00-5.40); WHITE BLOOD COUNT 3.6 10^3/uL (4.0-10.0)
[2018-07-16 12:44] LABS: ALBUMIN 1.4 GM/DL (3.2-5.2); ALT/SGPT 60 U/L (12-78); BILIRUBIN,DIRECT 0.2 MG/DL (0.0-0.2); BILIRUBIN,TOTAL 0.4 MG/DL (0.2-1.0); BLOOD UREA NITROGEN 50 MG/DL (7-18); CALCIUM LEVEL 8.5 MG/DL (8.8-10.2); CARBON DIOXIDE LEVEL 23 MEQ/L (21-32); CHLORIDE LEVEL 109 MEQ/L (98-107); CREATININE FOR GFR 0.94 MG/DL (0.55-1.30); GLOMERULAR FILTRATION RATE > 60.0 (>39); GLUCOSE, FASTING 85 MG/DL (70-100); PHOSPHORUS LEVEL 3.2 MG/DL (2.5-4.9); POTASSIUM SERUM 4.3 MEQ/L (3.5-5.1); PREALBUMIN 12.1 MG/DL (20.0-40.0); SODIUM LEVEL 140 MEQ/L (136-145); TOTAL PROTEIN 5.2 GM/DL (6.4-8.2)
== END ==
LOC: M SHH 11:06
PROVIDERS: ATTEND Internal Medicine Gastroenterology
DX: K65.1 Peritoneal abscess (principal); K50.814 Crohn's disease of both small and large intestine with abscess; E44.0 Moderate protein-calorie malnutrition

== ENCOUNTER → 2018-07-23 | Outpatient (REF) | payer MEDICARE ==
[2018-07-23 10:55] LABS: BASO % 0.3 % (0.0-1.0); EOS # 0.2 10^3/uL (0.0-0.50); EOS % 4.3 % (0.0-3.0); HEMATOCRIT 34.2 % (36.0-47.0); HEMOGLOBIN 10.7 g/dl (12.0-15.5); LYMPH # 0.9 10^3/uL (1.5-4.5); LYMPH % 21.4 % (24.0-44.0); MEAN CORPUSCULAR HEMOGLOBIN 28.8 pg (27.0-33.0); MEAN CORPUSCULAR HGB CONC 31.3 g/dl (32.0-36.5); MEAN CORPUSCULAR VOLUME 92.2 fl (80.0-96.0); MONO # 0.4 10^3/uL (0.0-0.8); NEUTROPHILS # 2.6 10^3/uL (1.8-7.7); NEUTROPHILS % 64.5 % (36.0-66.0); PLATELET COUNT, AUTOMATED 240 10^3/uL (150-450); RED BLOOD COUNT 3.71 10^6/uL (4.00-5.40)
[2018-07-23 11:15] LABS: ALBUMIN 1.4 GM/DL (3.2-5.2); BILIRUBIN,DIRECT 0.2 MG/DL (0.0-0.2); BILIRUBIN,TOTAL 0.5 MG/DL (0.2-1.0); CALCIUM LEVEL 8.4 MG/DL (8.8-10.2); CREATININE FOR GFR 1.1 MG/DL (0.55-1.30); GLOMERULAR FILTRATION RATE 52.1 (>39); PHOSPHORUS LEVEL 3.3 MG/DL (2.5-4.9); POTASSIUM SERUM 4.3 MEQ/L (3.5-5.1); TOTAL PROTEIN 5.4 GM/DL (6.4-8.2)
== END ==
LOC: M SHH 10:15
PROVIDERS: ATTEND Internal Medicine Gastroenterology
DX: K65.1 Peritoneal abscess (principal); K50.814 Crohn's disease of both small and large intestine with abscess; E44.0 Moderate protein-calorie malnutrition

== ENCOUNTER → 2018-07-27 | Outpatient (CLI) | payer MEDICARE ==
[~2018-07-27] MED LIST changes: -CALC600T34 PO; +E-Z-GAS II EFFERVESCENT PACKET (SODIUM BICARB./CITRIC ACID/SIMETHICONE) As Ordered ONE; +E-Z-HD 98% w/w 340GM SUSP BTL As Ordered ONE; +E-Z-PAQUE 96% w/w SUSP 176GM BTL As Ordered ONE; -HYDR-3291 PO; +HYDR-4327 PO; +HYDR-4513 PO; -HYDR5TAB59 PO; +KONS100P6 PO; -MAGN1TAB25 PO; +MAGN1TAB26 PO; -METAPKT PO; -VICO5TAB16 PO; +VICO5TAB17 PO; +[UNRECOGNIZED DRUG - CODE] PO
--- NOTE | 2018-07-31 07:52 | REP ---
This procedure was performed under the direct supervision of Dr. Rudd. The images were reviewed with Dr. Rudd. The corporate administrator film shows a ileostomy ring with multiple surgical clips noted as well as a vascular calcification. Liquid barium and gas producing crystals were given in the erect position as well as semi erect in order to perform a double contrast upper GI examination, to the best of patient's ability. The oral and pharyngeal stages of deglutition were unremarkable. Esophageal transport is delayed, and tertiary waves were visualized. Is no esophagitis, stricture, or mucosal ring noted. The stomach hedrick are normally outlined. The rugal folds are smooth and regular. There is no gastritis, neoplasm, ulcer disease noted. However, this portion of the examination was extremely limited due to the patient's mobility issues. The duodenal hedrick are normally outlined. The mucosal folds are smooth and regular. There is no duodenitis, pancreatitis, peptic ulcer disease, or neoplasm noted. The visualized portion of the proximal small bowel to the jejunum appears normal in course and caliber. The ileum is not visualized, consistent with resection. No fistulas, strictures, or obstructions were noted Impression; 1. Presbyesophagus 0.4 minutes of fluoroscopy time was utilized for this procedure. Reviewed by KRISS Tavarez 07/27/2018 12:54 P Electronically Signed by Dane Rudd MD 07/27/2018 01:29 P
== END ==
LOC: M RAD 10:51
PROVIDERS: ATTEND Internal Medicine Gastroenterology
DX: K50.814 Crohn's disease of both small and large intestine with abscess (principal); K22.8 Other specified diseases of esophagus

== ENCOUNTER → 2018-07-31 | Outpatient (REF) | payer MEDICARE ==
[~2018-07-31] MED LIST changes: -E-Z-GAS II EFFERVESCENT PACKET (SODIUM BICARB./CITRIC ACID/SIMETHICONE) As Ordered ONE; -E-Z-HD 98% w/w 340GM SUSP BTL As Ordered ONE; -E-Z-PAQUE 96% w/w SUSP 176GM BTL As Ordered ONE
[2018-07-31 14:04] LABS: BASO % 0.7 % (0.0-1.0); EOS # 0.1 10^3/uL (0.0-0.50); EOS % 3.6 % (0.0-3.0); HEMATOCRIT 34.4 % (36.0-47.0); HEMOGLOBIN 10.7 g/dl (12.0-15.5); LYMPH # 0.9 10^3/uL (1.5-4.5); LYMPH % 29.5 % (24.0-44.0); MEAN CORPUSCULAR HEMOGLOBIN 28.9 pg (27.0-33.0); MEAN CORPUSCULAR HGB CONC 31.1 g/dl (32.0-36.5); MONO # 0.4 10^3/uL (0.0-0.8); MONO % 12.5 % (0.0-5.0); NEUTROPHILS # 1.6 10^3/uL (1.8-7.7); PLATELET COUNT, AUTOMATED 219 10^3/uL (150-450); WHITE BLOOD COUNT 3.1 10^3/uL (4.0-10.0)
[2018-07-31 14:51] LABS: ALBUMIN 1.4 GM/DL (3.2-5.2); ALT/SGPT 103 U/L (12-78); BILIRUBIN,DIRECT 0.3 MG/DL (0.0-0.2); BILIRUBIN,TOTAL 0.4 MG/DL (0.2-1.0); BLOOD UREA NITROGEN 51 MG/DL (7-18); CALCIUM LEVEL 8.7 MG/DL (8.8-10.2); CARBON DIOXIDE LEVEL 26 MEQ/L (21-32); CHLORIDE LEVEL 108 MEQ/L (98-107); CREATININE FOR GFR 0.96 MG/DL (0.55-1.30); GLOMERULAR FILTRATION RATE > 60.0 (>39); GLUCOSE, FASTING 77 MG/DL (70-100); MAGNESIUM LEVEL 2.1 MG/DL (1.8-2.4); PHOSPHORUS LEVEL 3.2 MG/DL (2.5-4.9); POTASSIUM SERUM 4.5 MEQ/L (3.5-5.1); PREALBUMIN 14.8 MG/DL (20.0-40.0); SODIUM LEVEL 139 MEQ/L (136-145); TOTAL PROTEIN 5.4 GM/DL (6.4-8.2)
[2018-07-31 14:53] LABS: % LABILE ALKALINE PHOSPHATASE 61.8 %; LABILE ALKPHOS 611 U/L; STABLE ALKPHOS 377 U/L
== END ==
LOC: M SHH 07-30 10:43
PROVIDERS: ATTEND Internal Medicine Gastroenterology
DX: K65.1 Peritoneal abscess (principal); K50.814 Crohn's disease of both small and large intestine with abscess; E44.0 Moderate protein-calorie malnutrition

== ENCOUNTER → 2018-08-06 | Outpatient (REF) | payer MEDICARE ==
[2018-08-06 12:16] LABS: BASO % 0.2 % (0.0-1.0); EOS # 0.1 10^3/uL (0.0-0.50); EOS % 1.8 % (0.0-3.0); HEMATOCRIT 32.3 % (36.0-47.0); HEMOGLOBIN 10.3 g/dl (12.0-15.5); LYMPH # 0.5 10^3/uL (1.5-4.5); LYMPH % 10.4 % (24.0-44.0); MEAN CORPUSCULAR HEMOGLOBIN 29.2 pg (27.0-33.0); MEAN CORPUSCULAR HGB CONC 31.9 g/dl (32.0-36.5); MEAN CORPUSCULAR VOLUME 91.5 fl (80.0-96.0); MONO # 0.3 10^3/uL (0.0-0.8); NEUTROPHILS # 3.5 10^3/uL (1.8-7.7); NEUTROPHILS % 81.4 % (36.0-66.0); PLATELET COUNT, AUTOMATED 200 10^3/uL (150-450); RED BLOOD COUNT 3.53 10^6/uL (4.00-5.40); WHITE BLOOD COUNT 4.3 10^3/uL (4.0-10.0)
[2018-08-06 12:21] LABS: ALBUMIN 1.5 GM/DL (3.2-5.2); BILIRUBIN,DIRECT 0.4 MG/DL (0.0-0.2); BILIRUBIN,TOTAL 0.7 MG/DL (0.2-1.0); CALCIUM LEVEL 8.2 MG/DL (8.8-10.2); CREATININE FOR GFR 1.01 MG/DL (0.55-1.30); GLOMERULAR FILTRATION RATE 57.5 (>39); MAGNESIUM LEVEL 1.9 MG/DL (1.8-2.4); PHOSPHORUS LEVEL 3.3 MG/DL (2.5-4.9); POTASSIUM SERUM 4.3 MEQ/L (3.5-5.1); PREALBUMIN 17.3 MG/DL (20.0-40.0); TOTAL PROTEIN 5.3 GM/DL (6.4-8.2)
== END ==
LOC: M LAB REF 11:51 → M SHH 11:51
PROVIDERS: ATTEND Internal Medicine Gastroenterology
DX: K65.1 Peritoneal abscess (principal); K50.814 Crohn's disease of both small and large intestine with abscess; E44.0 Moderate protein-calorie malnutrition

== ENCOUNTER → 2018-08-13 | Outpatient (REF) | payer MEDICARE ==
[2018-08-13 11:59] LABS: BASO % 0.6 % (0.0-1.0); EOS # 0.1 10^3/uL (0.0-0.50); EOS % 2.9 % (0.0-3.0); HEMATOCRIT 32.9 % (36.0-47.0); HEMOGLOBIN 10.4 g/dl (12.0-15.5); LYMPH # 0.8 10^3/uL (1.5-4.5); LYMPH % 22.5 % (24.0-44.0); MEAN CORPUSCULAR HEMOGLOBIN 29.2 pg (27.0-33.0); MEAN CORPUSCULAR HGB CONC 31.6 g/dl (32.0-36.5); MEAN CORPUSCULAR VOLUME 92.4 fl (80.0-96.0); MONO # 0.4 10^3/uL (0.0-0.8); MONO % 11.4 % (0.0-5.0); NEUTROPHILS # 2.1 10^3/uL (1.8-7.7); NEUTROPHILS % 62.3 % (36.0-66.0); PLATELET COUNT, AUTOMATED 198 10^3/uL (150-450); RED BLOOD COUNT 3.56 10^6/uL (4.00-5.40); WHITE BLOOD COUNT 3.4 10^3/uL (4.0-10.0)
[2018-08-13 12:49] LABS: ALBUMIN 1.5 GM/DL (3.2-5.2); BILIRUBIN,DIRECT 0.4 MG/DL (0.0-0.2); BILIRUBIN,TOTAL 0.6 MG/DL (0.2-1.0); CALCIUM LEVEL 8.4 MG/DL (8.8-10.2); CREATININE FOR GFR 1.09 MG/DL (0.55-1.30); GLOMERULAR FILTRATION RATE 52.7 (>39); POTASSIUM SERUM 4.2 MEQ/L (3.5-5.1); PREALBUMIN 16.1 MG/DL (20.0-40.0); TOTAL PROTEIN 5.4 GM/DL (6.4-8.2)
== END ==
LOC: M SHH 11:26
PROVIDERS: ATTEND Internal Medicine Gastroenterology
DX: K65.1 Peritoneal abscess (principal); K50.814 Crohn's disease of both small and large intestine with abscess; E44.0 Moderate protein-calorie malnutrition

== ENCOUNTER → 2018-08-13 | Outpatient (REF) | payer MEDICARE ==
[2018-08-15 13:33] LABS: ALBUMIN 1.5 GM/DL (3.2-5.2); CALCIUM LEVEL 8.1 MG/DL (8.8-10.2); CREATININE FOR GFR 1.1 MG/DL (0.55-1.30); GLOMERULAR FILTRATION RATE 52.1 (>39); MAGNESIUM LEVEL 2.2 MG/DL (1.8-2.4); PERCENT SATURATION 24.2 % (13.2-45.0); PHOSPHORUS LEVEL 2.9 MG/DL (2.5-4.9); POTASSIUM SERUM 4.3 MEQ/L (3.5-5.1); PTH INTACT 18.2 PG/ML (18.5-88.0); URIC ACID 4.6 MG/DL (2.6-6.0)
== END ==
LOC: M LAB REF 12:38
PROVIDERS: ATTEND Internal Medicine Nephrology
DX: N18.3 Chronic kidney disease, stage 3 (moderate) (principal); D63.1 Anemia in chronic kidney disease

== ENCOUNTER → 2018-08-20 | Outpatient (REF) | payer MEDICARE ==
[2018-08-20 11:57] LABS: BASO % 0.5 % (0.0-1.0); EOS # 0.1 10^3/uL (0.0-0.50); EOS % 1.9 % (0.0-3.0); HEMATOCRIT 32.3 % (36.0-47.0); HEMOGLOBIN 10.2 g/dl (12.0-15.5); LYMPH # 0.5 10^3/uL (1.5-4.5); MEAN CORPUSCULAR HEMOGLOBIN 29.7 pg (27.0-33.0); MEAN CORPUSCULAR HGB CONC 31.6 g/dl (32.0-36.5); MEAN CORPUSCULAR VOLUME 94.2 fl (80.0-96.0); MONO # 0.3 10^3/uL (0.0-0.8); MONO % 7.2 % (0.0-5.0); NEUTROPHILS # 2.9 10^3/uL (1.8-7.7); NEUTROPHILS % 78.1 % (36.0-66.0); PLATELET COUNT, AUTOMATED 198 10^3/uL (150-450); RED BLOOD COUNT 3.43 10^6/uL (4.00-5.40); WHITE BLOOD COUNT 3.8 10^3/uL (4.0-10.0)
[2018-08-20 12:28] LABS: ALBUMIN 1.5 GM/DL (3.2-5.2); ALT/SGPT 98 U/L (12-78); BILIRUBIN,DIRECT 0.5 MG/DL (0.0-0.2); BILIRUBIN,TOTAL 0.7 MG/DL (0.2-1.0); BLOOD UREA NITROGEN 46 MG/DL (7-18); CARBON DIOXIDE LEVEL 26 MEQ/L (21-32); CHLORIDE LEVEL 111 MEQ/L (98-107); CREATININE FOR GFR 0.94 MG/DL (0.55-1.30); GLOMERULAR FILTRATION RATE > 60.0 (>39); GLUCOSE, FASTING 71 MG/DL (70-100); POTASSIUM SERUM 4.3 MEQ/L (3.5-5.1); PREALBUMIN 16.3 MG/DL (20.0-40.0); SODIUM LEVEL 141 MEQ/L (136-145); TOTAL PROTEIN 5.3 GM/DL (6.4-8.2)
== END ==
LOC: M LAB REF 11:23 → M SHH 11:23
PROVIDERS: ATTEND Internal Medicine Gastroenterology
DX: K65.1 Peritoneal abscess (principal); K50.814 Crohn's disease of both small and large intestine with abscess; E44.0 Moderate protein-calorie malnutrition

== ENCOUNTER 2018-08-24 08:57 | Outpatient (CLI) | payer MEDICARE ==
[~2018-08-24] VITALS: Ht 154.9 cm; Wt 68.2 kg
[2018-08-24 09:10] VITALS: BP 148/68
[2018-08-24] MEDS ORDERED: SODIUM CHLORIDE 0.9% INJ 10 ML SYR IV PRN (09:45)
[2018-08-24] MEDS ORDERED: VEDOLIZUMAB 300 MG in NS 250 ML IV ONE (10:00)
[2018-08-24 10:35] VITALS: BP 142/82
[2018-08-24 10:56] VITALS: BP 148/81
[2018-08-24] MEDS ORDERED: SODIUM CHLORIDE 0.9% INJ 10 ML SYR IV SCH (18:00)
== END 2018-08-24 11:00 | disposition home or self-care (01) ==
LOC: M INFU 08:57
PROVIDERS: ATTEND Internal Medicine Gastroenterology
DX: K50.90 Crohn's disease, unspecified, without complications (principal); Z88.2 Allergy status to sulfonamides; Z88.8 Allergy status to other drugs, medicaments and biological substances

== ENCOUNTER → 2018-08-27 | Outpatient (REF) | payer MEDICARE ==
[2018-08-27 11:36] LABS: BASO % 0.3 % (0.0-1.0); EOS # 0.1 10^3/uL (0.0-0.50); HEMATOCRIT 31.9 % (36.0-47.0); HEMOGLOBIN 10.1 g/dl (12.0-15.5); LYMPH # 0.7 10^3/uL (1.5-4.5); LYMPH % 20.8 % (24.0-44.0); MEAN CORPUSCULAR HEMOGLOBIN 30.1 pg (27.0-33.0); MEAN CORPUSCULAR HGB CONC 31.7 g/dl (32.0-36.5); MEAN CORPUSCULAR VOLUME 95.2 fl (80.0-96.0); MONO # 0.4 10^3/uL (0.0-0.8); MONO % 12.3 % (0.0-5.0); NEUTROPHILS # 2.1 10^3/uL (1.8-7.7); NEUTROPHILS % 63.6 % (36.0-66.0); PLATELET COUNT, AUTOMATED 201 10^3/uL (150-450); RED BLOOD COUNT 3.35 10^6/uL (4.00-5.40); WHITE BLOOD COUNT 3.3 10^3/uL (4.0-10.0)
[2018-08-27 12:24] LABS: ALBUMIN 1.5 GM/DL (3.2-5.2); BILIRUBIN,DIRECT 0.4 MG/DL (0.0-0.2); BILIRUBIN,TOTAL 0.7 MG/DL (0.2-1.0); CREATININE FOR GFR 1.06 MG/DL (0.55-1.30); GLOMERULAR FILTRATION RATE 54.4 (>39); PHOSPHORUS LEVEL 3.3 MG/DL (2.5-4.9); POTASSIUM SERUM 4.3 MEQ/L (3.5-5.1); PREALBUMIN 17.1 MG/DL (20.0-40.0); TOTAL PROTEIN 5.5 GM/DL (6.4-8.2)
== END ==
LOC: M SHH 11:19
PROVIDERS: ATTEND Internal Medicine Gastroenterology
DX: K65.1 Peritoneal abscess (principal); K50.814 Crohn's disease of both small and large intestine with abscess; E44.0 Moderate protein-calorie malnutrition

== ENCOUNTER → 2018-09-03 | Outpatient (REF) | payer MEDICARE ==
[2018-09-03 12:16] LABS: BASO % 0.3 % (0.0-1.0); EOS # 0.1 10^3/uL (0.0-0.50); EOS % 3.5 % (0.0-3.0); HEMATOCRIT 33.9 % (36.0-47.0); HEMOGLOBIN 10.7 g/dl (12.0-15.5); LYMPH # 0.9 10^3/uL (1.5-4.5); LYMPH % 27.5 % (24.0-44.0); MEAN CORPUSCULAR HEMOGLOBIN 30.3 pg (27.0-33.0); MEAN CORPUSCULAR HGB CONC 31.6 g/dl (32.0-36.5); MONO # 0.4 10^3/uL (0.0-0.8); MONO % 11.1 % (0.0-5.0); NEUTROPHILS # 1.8 10^3/uL (1.8-7.7); NEUTROPHILS % 57.3 % (36.0-66.0); PLATELET COUNT, AUTOMATED 222 10^3/uL (150-450); RED BLOOD COUNT 3.53 10^6/uL (4.00-5.40); WHITE BLOOD COUNT 3.2 10^3/uL (4.0-10.0)
[2018-09-03 12:20] LABS: ALBUMIN 1.6 GM/DL (3.2-5.2); ALT/SGPT 78 U/L (12-78); BILIRUBIN,DIRECT 0.3 MG/DL (0.0-0.2); BILIRUBIN,TOTAL 0.6 MG/DL (0.2-1.0); BLOOD UREA NITROGEN 46 MG/DL (7-18); CALCIUM LEVEL 8.5 MG/DL (8.8-10.2); CARBON DIOXIDE LEVEL 27 MEQ/L (21-32); CHLORIDE LEVEL 108 MEQ/L (98-107); CREATININE FOR GFR 0.96 MG/DL (0.55-1.30); GLOMERULAR FILTRATION RATE > 60.0 (>39); GLUCOSE, FASTING 78 MG/DL (70-100); PHOSPHORUS LEVEL 3.2 MG/DL (2.5-4.9); PREALBUMIN 18.5 MG/DL (20.0-40.0); SODIUM LEVEL 141 MEQ/L (136-145); TOTAL PROTEIN 5.7 GM/DL (6.4-8.2)
== END ==
LOC: M SHH 11:11
PROVIDERS: ATTEND Internal Medicine Gastroenterology
DX: K65.1 Peritoneal abscess (principal); K50.814 Crohn's disease of both small and large intestine with abscess; E44.0 Moderate protein-calorie malnutrition

== ENCOUNTER 2018-09-07 08:45 | Outpatient (CLI) | payer MEDICARE ==
[~2018-09-07] VITALS: Ht 154.9 cm; Wt 57.3 kg
[2018-09-07 08:50] VITALS: BP 150/84
[2018-09-07] MEDS ORDERED: SODIUM CHLORIDE 0.9% INJ 10 ML SYR IV PRN (09:15)
[2018-09-07] MEDS ORDERED: VEDOLIZUMAB 300 MG in NS 250 ML IV ONE (10:00)
[2018-09-07 10:10] VITALS: BP 160/70
[2018-09-07] MEDS ORDERED: SODIUM CHLORIDE 0.9% INJ 10 ML SYR IV SCH (18:00)
== END 2018-09-07 10:10 | disposition home or self-care (01) ==
LOC: M INFU 08:45
PROVIDERS: ATTEND Internal Medicine Gastroenterology
DX: K50.90 Crohn's disease, unspecified, without complications (principal); Z88.2 Allergy status to sulfonamides; Z88.8 Allergy status to other drugs, medicaments and biological substances

== ENCOUNTER → 2018-09-10 | Outpatient (REF) | payer MEDICARE ==
[2018-09-10 14:08] LABS: BASO % 0.5 % (0.0-1.0); EOS % 0.2 % (0.0-3.0); HEMATOCRIT 33.8 % (36.0-47.0); HEMOGLOBIN 10.6 g/dl (12.0-15.5); LYMPH # 0.5 10^3/uL (1.5-4.5); LYMPH % 11.6 % (24.0-44.0); MEAN CORPUSCULAR HEMOGLOBIN 30.2 pg (27.0-33.0); MEAN CORPUSCULAR HGB CONC 31.4 g/dl (32.0-36.5); MEAN CORPUSCULAR VOLUME 96.3 fl (80.0-96.0); MONO # 0.2 10^3/uL (0.0-0.8); MONO % 5.6 % (0.0-5.0); NEUTROPHILS # 3.5 10^3/uL (1.8-7.7); NEUTROPHILS % 82.1 % (36.0-66.0); PLATELET COUNT, AUTOMATED 225 10^3/uL (150-450); RED BLOOD COUNT 3.51 10^6/uL (4.00-5.40); WHITE BLOOD COUNT 4.3 10^3/uL (4.0-10.0)
[2018-09-10 19:01] LABS: ALBUMIN 1.7 GM/DL (3.2-5.2); BILIRUBIN,DIRECT 0.4 MG/DL (0.0-0.2); BILIRUBIN,TOTAL 0.6 MG/DL (0.2-1.0); CALCIUM LEVEL 8.4 MG/DL (8.8-10.2); CREATININE FOR GFR 1.15 MG/DL (0.55-1.30); GLOMERULAR FILTRATION RATE 49.5 (>39); MAGNESIUM LEVEL 2.1 MG/DL (1.8-2.4); PHOSPHORUS LEVEL 3.2 MG/DL (2.5-4.9); POTASSIUM SERUM 4.1 MEQ/L (3.5-5.1); PREALBUMIN 20.7 MG/DL (20.0-40.0)
== END ==
LOC: M SHH 13:42
PROVIDERS: ATTEND Internal Medicine Gastroenterology
DX: K65.1 Peritoneal abscess (principal); K50.814 Crohn's disease of both small and large intestine with abscess; E44.0 Moderate protein-calorie malnutrition

== ENCOUNTER → 2018-09-18 | Outpatient (REF) | payer MEDICARE ==
[2018-09-18 12:11] LABS: BASO % 0.7 % (0.0-1.0); EOS # 0.1 10^3/uL (0.0-0.50); HEMATOCRIT 33.4 % (36.0-47.0); HEMOGLOBIN 10.4 g/dl (12.0-15.5); LYMPH # 0.6 10^3/uL (1.5-4.5); LYMPH % 20.2 % (24.0-44.0); MEAN CORPUSCULAR HEMOGLOBIN 30.1 pg (27.0-33.0); MEAN CORPUSCULAR HGB CONC 31.1 g/dl (32.0-36.5); MEAN CORPUSCULAR VOLUME 96.8 fl (80.0-96.0); MONO # 0.5 10^3/uL (0.0-0.8); MONO % 15.2 % (0.0-5.0); NEUTROPHILS # 1.8 10^3/uL (1.8-7.7); NEUTROPHILS % 60.6 % (36.0-66.0); PLATELET COUNT, AUTOMATED 196 10^3/uL (150-450); RED BLOOD COUNT 3.45 10^6/uL (4.00-5.40)
[2018-09-18 13:14] LABS: ALBUMIN 1.6 GM/DL (3.2-5.2); ALT/SGPT 53 U/L (12-78); BILIRUBIN,DIRECT 0.4 MG/DL (0.0-0.2); BILIRUBIN,TOTAL 0.7 MG/DL (0.2-1.0); BLOOD UREA NITROGEN 40 MG/DL (7-18); CALCIUM LEVEL 8.3 MG/DL (8.8-10.2); CARBON DIOXIDE LEVEL 25 MEQ/L (21-32); CHLORIDE LEVEL 108 MEQ/L (98-107); CREATININE FOR GFR 0.96 MG/DL (0.55-1.30); GLOMERULAR FILTRATION RATE > 60.0 (>39); GLUCOSE, FASTING 97 MG/DL (70-100); MAGNESIUM LEVEL 2.1 MG/DL (1.8-2.4); POTASSIUM SERUM 4.2 MEQ/L (3.5-5.1); PREALBUMIN 17.5 MG/DL (20.0-40.0); SODIUM LEVEL 142 MEQ/L (136-145); TOTAL PROTEIN 5.7 GM/DL (6.4-8.2)
== END ==
LOC: M SHH 11:28
PROVIDERS: ATTEND Internal Medicine Gastroenterology
DX: K50.814 Crohn's disease of both small and large intestine with abscess (principal); E44.0 Moderate protein-calorie malnutrition; K65.1 Peritoneal abscess

== ENCOUNTER → 2018-09-24 | Outpatient (REF) | payer MEDICARE ==
[2018-09-24 19:31] LABS: ALBUMIN 1.8 GM/DL (3.2-5.2); BILIRUBIN,TOTAL 0.5 MG/DL (0.2-1.0); CALCIUM LEVEL 8.7 MG/DL (8.8-10.2); GLOMERULAR FILTRATION RATE 58.2 (>39); MAGNESIUM LEVEL 1.9 MG/DL (1.8-2.4); PERCENT SATURATION 14.8 % (13.2-45.0); POTASSIUM SERUM 4.1 MEQ/L (3.5-5.1); TOTAL PROTEIN 5.7 GM/DL (6.4-8.2)
[2018-09-24 19:50] LABS: HEMATOCRIT 31.7 % (36.0-47.0); MEAN CORPUSCULAR HEMOGLOBIN 30.6 pg (27.0-33.0); MEAN CORPUSCULAR HGB CONC 31.5 g/dl (32.0-36.5); MEAN CORPUSCULAR VOLUME 96.9 fl (80.0-96.0); PLATELET COUNT, AUTOMATED 191 10^3/uL (150-450); RED BLOOD COUNT 3.27 10^6/uL (4.00-5.40); WHITE BLOOD COUNT 3.7 10^3/uL (4.0-10.0)
[2018-09-24 21:06] LABS: TOTAL 25(OH) VITAMIN D 32.6 NG/ML (30.0-100.0)
== END ==
LOC: M SHH 17:16
PROVIDERS: ATTEND Family Medicine
DX: K50.913 Crohn's disease, unspecified, with fistula (principal); D50.8 Other iron deficiency anemias; E83.42 Hypomagnesemia; K65.1 Peritoneal abscess; K50.814 Crohn's disease of both small and large intestine with abscess; E44.0 Moderate protein-calorie malnutrition

== ENCOUNTER → 2018-09-24 | Outpatient (REF) | payer MEDICARE ==
[2018-09-24 19:42] LABS: ALBUMIN 1.8 GM/DL (3.2-5.2); BILIRUBIN,DIRECT 0.3 MG/DL (0.0-0.2); BILIRUBIN,TOTAL 0.5 MG/DL (0.2-1.0); CALCIUM LEVEL 8.6 MG/DL (8.8-10.2); GLOMERULAR FILTRATION RATE 58.2 (>39); MAGNESIUM LEVEL 1.9 MG/DL (1.8-2.4); PHOSPHORUS LEVEL 3.5 MG/DL (2.5-4.9); POTASSIUM SERUM 4.1 MEQ/L (3.5-5.1); TOTAL PROTEIN 5.7 GM/DL (6.4-8.2)
[2018-09-24 19:53] LABS: BASO % 0.3 % (0.0-1.0); EOS # 0.1 10^3/uL (0.0-0.50); EOS % 1.4 % (0.0-3.0); HEMATOCRIT 32.1 % (36.0-47.0); HEMOGLOBIN 10.1 g/dl (12.0-15.5); LYMPH # 0.4 10^3/uL (1.5-4.5); LYMPH % 9.5 % (24.0-44.0); MEAN CORPUSCULAR HEMOGLOBIN 30.4 pg (27.0-33.0); MEAN CORPUSCULAR HGB CONC 31.5 g/dl (32.0-36.5); MEAN CORPUSCULAR VOLUME 96.7 fl (80.0-96.0); MONO # 0.3 10^3/uL (0.0-0.8); MONO % 7.6 % (0.0-5.0); NEUTROPHILS % 80.7 % (36.0-66.0); PLATELET COUNT, AUTOMATED 198 10^3/uL (150-450); RED BLOOD COUNT 3.32 10^6/uL (4.00-5.40); WHITE BLOOD COUNT 3.7 10^3/uL (4.0-10.0)
[2018-09-24 20:19] LABS: PREALBUMIN 18.2 MG/DL (20.0-40.0)
== END ==
LOC: M LAB REF 17:14 → M SHH 17:14
PROVIDERS: ATTEND Internal Medicine Gastroenterology
DX: K65.1 Peritoneal abscess (principal); K50.814 Crohn's disease of both small and large intestine with abscess; E44.0 Moderate protein-calorie malnutrition

== ENCOUNTER → 2018-10-01 | Outpatient (REF) | payer MEDICARE ==
[2018-10-01 11:48] LABS: BASO % 0.3 % (0.0-1.0); EOS # 0.1 10^3/uL (0.0-0.50); EOS % 2.2 % (0.0-3.0); HEMATOCRIT 29.1 % (36.0-47.0); HEMOGLOBIN 9.3 g/dl (12.0-15.5); LYMPH # 0.4 10^3/uL (1.5-4.5); LYMPH % 12.1 % (24.0-44.0); MEAN CORPUSCULAR HEMOGLOBIN 29.8 pg (27.0-33.0); MEAN CORPUSCULAR VOLUME 93.3 fl (80.0-96.0); MONO # 0.4 10^3/uL (0.0-0.8); MONO % 11.6 % (0.0-5.0); NEUTROPHILS # 2.7 10^3/uL (1.8-7.7); NEUTROPHILS % 73.5 % (36.0-66.0); PLATELET COUNT, AUTOMATED 218 10^3/uL (150-450); RED BLOOD COUNT 3.12 10^6/uL (4.00-5.40); WHITE BLOOD COUNT 3.6 10^3/uL (4.0-10.0)
[2018-10-01 12:56] LABS: ERYTHROCYTE SEDIMENTATION RATE 88 mm/hr (0-30)
[2018-10-01 19:08] LABS: ALBUMIN 1.7 GM/DL (3.2-5.2); BILIRUBIN,DIRECT 0.4 MG/DL (0.0-0.2); BILIRUBIN,TOTAL 0.6 MG/DL (0.2-1.0); C REACTIVE PROTEIN QUANTITATIV 1.74 MG/DL (0.00-0.30); MAGNESIUM LEVEL 1.9 MG/DL (1.8-2.4); PHOSPHORUS LEVEL 4.1 MG/DL (2.5-4.9); TOTAL PROTEIN 5.6 GM/DL (6.4-8.2)
[2018-10-01 19:58] LABS: PREALBUMIN 14.8 MG/DL (20.0-40.0)
[2018-10-03 11:19] LABS: CALCIUM LEVEL 8.3 MG/DL (8.8-10.2); CREATININE FOR GFR 1.12 MG/DL (0.55-1.30); GLOMERULAR FILTRATION RATE 51.1 (>39); POTASSIUM SERUM 3.9 MEQ/L (3.5-5.1)
== END ==
LOC: M SHH 11:28
PROVIDERS: ATTEND Internal Medicine Gastroenterology
DX: E44.0 Moderate protein-calorie malnutrition (principal); K50.814 Crohn's disease of both small and large intestine with abscess; K64.1 Second degree hemorrhoids

== ENCOUNTER → 2018-10-08 | Outpatient (REF) | payer MEDICARE ==
[2018-10-08 17:24] LABS: ALBUMIN 1.9 GM/DL (3.2-5.2); BASO % 0.4 % (0.0-1.0); BILIRUBIN,DIRECT 0.3 MG/DL (0.0-0.2); BILIRUBIN,TOTAL 0.3 MG/DL (0.2-1.0); CALCIUM LEVEL 9.2 MG/DL (8.8-10.2); CREATININE FOR GFR 1.06 MG/DL (0.55-1.30); EOS # 0.1 10^3/uL (0.0-0.50); GLOMERULAR FILTRATION RATE 54.4 (>39); HEMATOCRIT 32.9 % (36.0-47.0); HEMOGLOBIN 10.3 g/dl (12.0-15.5); LYMPH # 0.4 10^3/uL (1.5-4.5); LYMPH % 7.9 % (24.0-44.0); MAGNESIUM LEVEL 1.9 MG/DL (1.8-2.4); MEAN CORPUSCULAR HEMOGLOBIN 29.9 pg (27.0-33.0); MEAN CORPUSCULAR HGB CONC 31.3 g/dl (32.0-36.5); MEAN CORPUSCULAR VOLUME 95.6 fl (80.0-96.0); MONO # 0.3 10^3/uL (0.0-0.8); MONO % 6.7 % (0.0-5.0); NEUTROPHILS # 4.3 10^3/uL (1.8-7.7); NEUTROPHILS % 83.6 % (36.0-66.0); PHOSPHORUS LEVEL 3.5 MG/DL (2.5-4.9); PLATELET COUNT, AUTOMATED 250 10^3/uL (150-450); POTASSIUM SERUM 3.7 MEQ/L (3.5-5.1); PREALBUMIN 18.5 MG/DL (20.0-40.0); RED BLOOD COUNT 3.44 10^6/uL (4.00-5.40); TOTAL PROTEIN 6.2 GM/DL (6.4-8.2); WHITE BLOOD COUNT 5.1 10^3/uL (4.0-10.0)
== END ==
LOC: M SHH 16:16
PROVIDERS: ATTEND Internal Medicine Gastroenterology
DX: K65.1 Peritoneal abscess (principal); K50.814 Crohn's disease of both small and large intestine with abscess; E44.0 Moderate protein-calorie malnutrition

== ENCOUNTER 2018-10-10 14:59 | Outpatient (CLI) | payer MEDICARE ==
[~2018-10-10] VITALS: Ht 154.9 cm; Wt 57.3 kg
[2018-10-10 15:53] VITALS: BP 140/84
[2018-10-10] MEDS ORDERED: VEDOLIZUMAB 300 MG in NS 250 ML IV ONE (16:00)
[2018-10-10] MEDS ORDERED: SODIUM CHLORIDE 0.9% INJ 10 ML SYR IV PRN (16:15)
[2018-10-10 16:30] VITALS: BP 156/74
[2018-10-10] MEDS ORDERED: SODIUM CHLORIDE 0.9% INJ 10 ML SYR IV SCH (18:00)
== END 2018-10-10 16:30 | disposition home or self-care (01) ==
LOC: M INFU 14:59
PROVIDERS: ATTEND Internal Medicine Gastroenterology
DX: K50.90 Crohn's disease, unspecified, without complications (principal)

== ENCOUNTER → 2018-10-15 | Outpatient (REF) | payer MEDICARE ==
[2018-10-15 11:10] LABS: BASO % 0.5 % (0.0-1.0); EOS # 0.1 10^3/uL (0.0-0.50); EOS % 2.3 % (0.0-3.0); HEMATOCRIT 31.9 % (36.0-47.0); HEMOGLOBIN 10.1 g/dl (12.0-15.5); LYMPH # 0.7 10^3/uL (1.5-4.5); LYMPH % 15.6 % (24.0-44.0); MEAN CORPUSCULAR HEMOGLOBIN 29.2 pg (27.0-33.0); MEAN CORPUSCULAR HGB CONC 31.7 g/dl (32.0-36.5); MEAN CORPUSCULAR VOLUME 92.2 fl (80.0-96.0); MONO # 0.6 10^3/uL (0.0-0.8); MONO % 12.9 % (0.0-5.0); NEUTROPHILS % 68.2 % (36.0-66.0); PLATELET COUNT, AUTOMATED 267 10^3/uL (150-450); RED BLOOD COUNT 3.46 10^6/uL (4.00-5.40); WHITE BLOOD COUNT 4.4 10^3/uL (4.0-10.0)
[2018-10-15 11:23] LABS: ALBUMIN 1.8 GM/DL (3.2-5.2); BILIRUBIN,DIRECT 0.3 MG/DL (0.0-0.2); BILIRUBIN,TOTAL 0.4 MG/DL (0.2-1.0); CALCIUM LEVEL 8.8 MG/DL (8.8-10.2); CREATININE FOR GFR 1.05 MG/DL (0.55-1.30); MAGNESIUM LEVEL 1.9 MG/DL (1.8-2.4); PHOSPHORUS LEVEL 3.5 MG/DL (2.5-4.9); POTASSIUM SERUM 3.7 MEQ/L (3.5-5.1); PREALBUMIN 17.2 MG/DL (20.0-40.0); TOTAL PROTEIN 6.1 GM/DL (6.4-8.2)
== END ==
LOC: M SHH 10:01
PROVIDERS: ATTEND Internal Medicine Gastroenterology
DX: K65.1 Peritoneal abscess (principal); K50.814 Crohn's disease of both small and large intestine with abscess; E44.0 Moderate protein-calorie malnutrition

== ENCOUNTER → 2018-10-22 | Outpatient (CLI) | payer MEDICARE ==
--- NOTE | 2018-10-22 12:43 | REP ---
Clinical: Bilateral upper extremity edema. Technique: Real time sousa scale and color Doppler evaluation using linear high frequency transducer of the right and left upper extremities. Findings: Ultrasound examination of the right and left upper extremity deep venous structures including jugular, subclavian, axillary, brachial, basilic, and cephalic veins demonstrates normal flow characteristics without evidence for deep venous thrombosis. Incidental note is made of a PICC line in the left basilic vein. Impression: No evidence for deep venous thrombosis bilaterally. PICC line via left basilic vein noted. Electronically Signed by Burt Leong MD 10/22/2018 12:35 P
--- NOTE | 2018-10-22 13:05 | REP ---
Clinical: Abdominal pain. History of Crohn's. Technique: Real time sousa scale and color Doppler evaluation using curved array transducer. Findings: Liver, spleen, and pancreas are normal in contour, size, echogenicity without focal hepatic, splenic or pancreatic lesions identified. Spleen measures 13.2 x 4.5 x 5.1 cm (splenic index 302). Gallbladder demonstrates mobile gallstone without wall thickening or pericholecystic fluid. No biliary ductal dilatation is appreciated and the common bile duct measures 3.7 mm diameter. Bilateral kidneys are normal in reniform shape without hydronephrosis. Right kidney measures 10.1 x 5.7 x 4.8 cm. Left kidney measures 10.5 x 3.6 x 5.2 cm. Visualized abdominal aorta measures 1.6 cm maximal diameter. No ascites. Color Doppler evaluation demonstrates normal flow direction, wave patterns, and velocities of the hepatic veins and portal veins as well as hepatic artery. Main portal vein 25.8 cm/sec Superior mesenteric vein 35.3 cm/sec Splenic vein 38.7 cm/sec Hepatic artery 74.8 cm/sec Impression: Normal complete abdominal ultrasound. Electronically Signed by Burt Leong MD 10/22/2018 12:56 P
== END ==
LOC: M RAD 09:51
PROVIDERS: ATTEND Internal Medicine Gastroenterology
DX: K50.814 Crohn's disease of both small and large intestine with abscess (principal); R60.0 Localized edema; K65.1 Peritoneal abscess; E44.0 Moderate protein-calorie malnutrition; Z95.828 Presence of other vascular implants and grafts

== ENCOUNTER → 2018-10-22 | Outpatient (REF) | payer MEDICARE ==
[2018-10-22 11:51] LABS: BASO % 0.7 % (0.0-1.0); EOS # 0.1 10^3/uL (0.0-0.50); EOS % 2.4 % (0.0-3.0); HEMATOCRIT 31.6 % (36.0-47.0); HEMOGLOBIN 9.9 g/dl (12.0-15.5); LYMPH # 0.7 10^3/uL (1.5-4.5); LYMPH % 16.3 % (24.0-44.0); MEAN CORPUSCULAR HGB CONC 31.3 g/dl (32.0-36.5); MEAN CORPUSCULAR VOLUME 89.3 fl (80.0-96.0); MONO # 0.5 10^3/uL (0.0-0.8); MONO % 11.3 % (0.0-5.0); NEUTROPHILS # 3.1 10^3/uL (1.8-7.7); NEUTROPHILS % 69.1 % (36.0-66.0); PLATELET COUNT, AUTOMATED 262 10^3/uL (150-450); RED BLOOD COUNT 3.54 10^6/uL (4.00-5.40); WHITE BLOOD COUNT 4.5 10^3/uL (4.0-10.0)
[2018-10-22 12:07] LABS: ALBUMIN 2.1 GM/DL (3.2-5.2); BILIRUBIN,DIRECT 0.3 MG/DL (0.0-0.2); BILIRUBIN,TOTAL 0.5 MG/DL (0.2-1.0); CALCIUM LEVEL 8.5 MG/DL (8.8-10.2); CREATININE FOR GFR 1.01 MG/DL (0.55-1.30); GLOMERULAR FILTRATION RATE 57.5 (>39); MAGNESIUM LEVEL 1.8 MG/DL (1.8-2.4); POTASSIUM SERUM 3.4 MEQ/L (3.5-5.1); PREALBUMIN 22.4 MG/DL (20.0-40.0); TOTAL PROTEIN 6.4 GM/DL (6.4-8.2)
== END ==
LOC: M SHH 10:52
PROVIDERS: ATTEND Internal Medicine Gastroenterology
DX: K65.1 Peritoneal abscess (principal); K50.814 Crohn's disease of both small and large intestine with abscess; E44.0 Moderate protein-calorie malnutrition

== ENCOUNTER → 2018-10-29 | Outpatient (REF) | payer MEDICARE ==
[2018-10-29 12:30] LABS: BASO % 0.3 % (0.0-1.0); EOS # 0.1 10^3/uL (0.0-0.50); EOS % 2.8 % (0.0-3.0); HEMATOCRIT 30.5 % (36.0-47.0); HEMOGLOBIN 9.6 g/dl (12.0-15.5); LYMPH # 0.5 10^3/uL (1.5-4.5); MEAN CORPUSCULAR HEMOGLOBIN 27.9 pg (27.0-33.0); MEAN CORPUSCULAR HGB CONC 31.5 g/dl (32.0-36.5); MEAN CORPUSCULAR VOLUME 88.7 fl (80.0-96.0); MONO # 0.5 10^3/uL (0.0-0.8); MONO % 13.4 % (0.0-5.0); NEUTROPHILS # 2.5 10^3/uL (1.8-7.7); NEUTROPHILS % 69.2 % (36.0-66.0); PLATELET COUNT, AUTOMATED 249 10^3/uL (150-450); RED BLOOD COUNT 3.44 10^6/uL (4.00-5.40); WHITE BLOOD COUNT 3.6 10^3/uL (4.0-10.0)
[2018-10-29 12:42] LABS: BILIRUBIN,DIRECT 0.3 MG/DL (0.0-0.2); BILIRUBIN,TOTAL 0.5 MG/DL (0.2-1.0); CALCIUM LEVEL 8.2 MG/DL (8.8-10.2); CREATININE FOR GFR 1.01 MG/DL (0.55-1.30); GLOMERULAR FILTRATION RATE 57.5 (>39); PHOSPHORUS LEVEL 3.8 MG/DL (2.5-4.9); POTASSIUM SERUM 3.8 MEQ/L (3.5-5.1); PREALBUMIN 21.8 MG/DL (20.0-40.0); TOTAL PROTEIN 6.3 GM/DL (6.4-8.2)
== END ==
LOC: M SHH 11:49
PROVIDERS: ATTEND Internal Medicine Gastroenterology
DX: K65.1 Peritoneal abscess (principal); K50.814 Crohn's disease of both small and large intestine with abscess; E44.0 Moderate protein-calorie malnutrition

== ENCOUNTER → 2018-11-05 | Outpatient (REF) | payer MEDICARE ==
[2018-11-05 11:26] LABS: BASO % 0.6 % (0.0-1.0); EOS # 0.1 10^3/uL (0.0-0.50); HEMATOCRIT 29.3 % (36.0-47.0); HEMOGLOBIN 9.2 g/dl (12.0-15.5); LYMPH # 0.6 10^3/uL (1.5-4.5); LYMPH % 17.6 % (24.0-44.0); MEAN CORPUSCULAR HEMOGLOBIN 28.3 pg (27.0-33.0); MEAN CORPUSCULAR HGB CONC 31.4 g/dl (32.0-36.5); MEAN CORPUSCULAR VOLUME 90.2 fl (80.0-96.0); MONO # 0.4 10^3/uL (0.0-0.8); MONO % 13.1 % (0.0-5.0); NEUTROPHILS # 2.2 10^3/uL (1.8-7.7); NEUTROPHILS % 65.4 % (36.0-66.0); PLATELET COUNT, AUTOMATED 212 10^3/uL (150-450); RED BLOOD COUNT 3.25 10^6/uL (4.00-5.40); WHITE BLOOD COUNT 3.4 10^3/uL (4.0-10.0)
[2018-11-05 11:36] LABS: BILIRUBIN,DIRECT 0.2 MG/DL (0.0-0.2); BILIRUBIN,TOTAL 0.3 MG/DL (0.2-1.0); CALCIUM LEVEL 8.6 MG/DL (8.8-10.2); CREATININE FOR GFR 1.1 MG/DL (0.55-1.30); GLOMERULAR FILTRATION RATE 52.1 (>39); MAGNESIUM LEVEL 2.1 MG/DL (1.8-2.4); PHOSPHORUS LEVEL 3.8 MG/DL (2.5-4.9); POTASSIUM SERUM 3.9 MEQ/L (3.5-5.1); PREALBUMIN 17.8 MG/DL (20.0-40.0); TOTAL PROTEIN 6.1 GM/DL (6.4-8.2)
== END ==
LOC: M SHH 11:12
PROVIDERS: ATTEND Internal Medicine Gastroenterology
DX: K50.814 Crohn's disease of both small and large intestine with abscess (principal); K65.1 Peritoneal abscess; E44.0 Moderate protein-calorie malnutrition

== ENCOUNTER → 2018-11-09 | Outpatient (CLI) | payer MEDICARE ==
--- NOTE | 2018-11-09 10:53 | REP ---
Left knee five views: There are no comparisons. I suspect there is osteochondrosis dessicated is of the medial femoral condyle with the eburnation adjacent to the osteoarthrosis density cans. I suspect there are similar findings in the lateral femoral condyle but more subtle. There is significant joint space narrowing of the medial lateral compartments compatible with articular cartilage atrophy. There is a small joint effusion. There is diffuse demineralization. There are no calcifications. 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 I suspect more subtle changes of osteochondrosis of the dessicated in the lateral femoral condyle. No fractures are identified. There is a small joint effusion. There is marked joint space narrowing of the medial lateral compartments. Demineralization. Electronically Signed by Brando Guevara MD 11/09/2018 10:44 A
== END ==
LOC: M ADAMS 09:37
PROVIDERS: ATTEND Physician Assistant
DX: M17.12 Unilateral primary osteoarthritis, left knee (principal)

== ENCOUNTER → 2018-11-12 | Outpatient (REF) | payer MEDICARE ==
[2018-11-12 12:31] LABS: BASO % 0.6 % (0.0-1.0); EOS # 0.1 10^3/uL (0.0-0.50); EOS % 2.4 % (0.0-3.0); HEMATOCRIT 29.4 % (36.0-47.0); HEMOGLOBIN 9.1 g/dl (12.0-15.5); LYMPH # 0.6 10^3/uL (1.5-4.5); LYMPH % 19.5 % (24.0-44.0); MEAN CORPUSCULAR HEMOGLOBIN 27.6 pg (27.0-33.0); MEAN CORPUSCULAR VOLUME 89.1 fl (80.0-96.0); MONO # 0.4 10^3/uL (0.0-0.8); MONO % 12.8 % (0.0-5.0); NEUTROPHILS # 2.1 10^3/uL (1.8-7.7); NEUTROPHILS % 64.4 % (36.0-66.0); PLATELET COUNT, AUTOMATED 250 10^3/uL (150-450); WHITE BLOOD COUNT 3.3 10^3/uL (4.0-10.0)
[2018-11-12 13:11] LABS: BILIRUBIN,DIRECT 0.2 MG/DL (0.0-0.2); BILIRUBIN,TOTAL 0.4 MG/DL (0.2-1.0); CALCIUM LEVEL 8.8 MG/DL (8.8-10.2); CREATININE FOR GFR 1.09 MG/DL (0.55-1.30); GLOMERULAR FILTRATION RATE 52.7 (>39); MAGNESIUM LEVEL 2.2 MG/DL (1.8-2.4); PERCENT SATURATION 6.7 % (13.2-45.0); PHOSPHORUS LEVEL 3.9 MG/DL (2.5-4.9); PREALBUMIN 18.2 MG/DL (20.0-40.0); TOTAL PROTEIN 6.2 GM/DL (6.4-8.2)
== END ==
LOC: M SHH 12:05
PROVIDERS: ATTEND Internal Medicine Gastroenterology
DX: K65.1 Peritoneal abscess (principal); K50.814 Crohn's disease of both small and large intestine with abscess; E44.0 Moderate protein-calorie malnutrition

== ENCOUNTER → 2018-11-19 | Outpatient (REF) | payer MEDICARE ==
[2018-11-19 16:30] LABS: BASO % 0.3 % (0.0-1.0); EOS # 0.1 10^3/uL (0.0-0.50); EOS % 3.2 % (0.0-3.0); HEMATOCRIT 30.7 % (36.0-47.0); HEMOGLOBIN 9.2 g/dl (12.0-15.5); LYMPH # 0.6 10^3/uL (1.5-4.5); LYMPH % 18.1 % (24.0-44.0); MEAN CORPUSCULAR HEMOGLOBIN 26.7 pg (27.0-33.0); MONO # 0.5 10^3/uL (0.0-0.8); MONO % 13.7 % (0.0-5.0); NEUTROPHILS # 2.2 10^3/uL (1.8-7.7); NEUTROPHILS % 64.4 % (36.0-66.0); PLATELET COUNT, AUTOMATED 257 10^3/uL (150-450); RED BLOOD COUNT 3.45 10^6/uL (4.00-5.40); WHITE BLOOD COUNT 3.4 10^3/uL (4.0-10.0)
[2018-11-19 16:56] LABS: ALBUMIN 2.1 GM/DL (3.2-5.2); BILIRUBIN,DIRECT 0.2 MG/DL (0.0-0.2); BILIRUBIN,TOTAL 0.5 MG/DL (0.2-1.0); CALCIUM LEVEL 9.1 MG/DL (8.8-10.2); CREATININE FOR GFR 1.1 MG/DL (0.55-1.30); GLOMERULAR FILTRATION RATE 52.1 (>39); MAGNESIUM LEVEL 2.1 MG/DL (1.8-2.4); PHOSPHORUS LEVEL 3.9 MG/DL (2.5-4.9); POTASSIUM SERUM 3.4 MEQ/L (3.5-5.1); PREALBUMIN 19.6 MG/DL (20.0-40.0); TOTAL PROTEIN 6.3 GM/DL (6.4-8.2)
== END ==
LOC: M LAB REF 15:50 → M SHH 15:50
PROVIDERS: ATTEND Internal Medicine Gastroenterology
DX: E44.0 Moderate protein-calorie malnutrition (principal); K50.814 Crohn's disease of both small and large intestine with abscess; K65.1 Peritoneal abscess

== ENCOUNTER → 2018-11-26 | Outpatient (REF) | payer MEDICARE ==
[2018-11-26 13:23] LABS: BASO % 0.5 % (0.0-1.0); EOS # 0.1 10^3/uL (0.0-0.50); EOS % 3.6 % (0.0-3.0); HEMATOCRIT 30.2 % (36.0-47.0); HEMOGLOBIN 9.1 g/dl (12.0-15.5); LYMPH # 0.5 10^3/uL (1.5-4.5); LYMPH % 14.8 % (24.0-44.0); MEAN CORPUSCULAR HEMOGLOBIN 26.3 pg (27.0-33.0); MEAN CORPUSCULAR HGB CONC 30.1 g/dl (32.0-36.5); MEAN CORPUSCULAR VOLUME 87.3 fl (80.0-96.0); MONO # 0.4 10^3/uL (0.0-0.8); MONO % 10.1 % (0.0-5.0); NEUTROPHILS # 2.6 10^3/uL (1.8-7.7); NEUTROPHILS % 70.7 % (36.0-66.0); PLATELET COUNT, AUTOMATED 227 10^3/uL (150-450); RED BLOOD COUNT 3.46 10^6/uL (4.00-5.40); WHITE BLOOD COUNT 3.7 10^3/uL (4.0-10.0)
[2018-11-26 13:54] LABS: ALBUMIN 2.1 GM/DL (3.2-5.2); BILIRUBIN,DIRECT 0.2 MG/DL (0.0-0.2); BILIRUBIN,TOTAL 0.5 MG/DL (0.2-1.0); CALCIUM LEVEL 8.9 MG/DL (8.8-10.2); CREATININE FOR GFR 1.02 MG/DL (0.55-1.30); GLOMERULAR FILTRATION RATE 56.9 (>39); MAGNESIUM LEVEL 2.2 MG/DL (1.8-2.4); PHOSPHORUS LEVEL 3.7 MG/DL (2.5-4.9); POTASSIUM SERUM 4.1 MEQ/L (3.5-5.1); PREALBUMIN 17.9 MG/DL (20.0-40.0); TOTAL PROTEIN 6.2 GM/DL (6.4-8.2)
== END ==
LOC: M SHH 12:25
PROVIDERS: ATTEND Internal Medicine Gastroenterology
DX: K65.1 Peritoneal abscess (principal); K50.814 Crohn's disease of both small and large intestine with abscess; E44.0 Moderate protein-calorie malnutrition

== ENCOUNTER → 2018-12-03 | Outpatient (REF) | payer MEDICARE ==
[2018-12-03 13:46] LABS: BASO % 0.2 % (0.0-1.0); EOS # 0.1 10^3/uL (0.0-0.50); EOS % 2.1 % (0.0-3.0); HEMATOCRIT 29.2 % (36.0-47.0); LYMPH # 0.5 10^3/uL (1.5-4.5); LYMPH % 11.3 % (24.0-44.0); MEAN CORPUSCULAR HEMOGLOBIN 25.8 pg (27.0-33.0); MEAN CORPUSCULAR HGB CONC 30.8 g/dl (32.0-36.5); MEAN CORPUSCULAR VOLUME 83.7 fl (80.0-96.0); MONO # 0.6 10^3/uL (0.0-0.8); MONO % 12.7 % (0.0-5.0); NEUTROPHILS # 3.2 10^3/uL (1.8-7.7); NEUTROPHILS % 73.2 % (36.0-66.0); PLATELET COUNT, AUTOMATED 248 10^3/uL (150-450); RED BLOOD COUNT 3.49 10^6/uL (4.00-5.40); WHITE BLOOD COUNT 4.3 10^3/uL (4.0-10.0)
[2018-12-03 14:16] LABS: ALBUMIN 2.1 GM/DL (3.2-5.2); BILIRUBIN,DIRECT 0.2 MG/DL (0.0-0.2); BILIRUBIN,TOTAL 0.5 MG/DL (0.2-1.0); CALCIUM LEVEL 8.9 MG/DL (8.8-10.2); CREATININE FOR GFR 1.1 MG/DL (0.55-1.30); GLOMERULAR FILTRATION RATE 52.1 (>39); MAGNESIUM LEVEL 2.2 MG/DL (1.8-2.4); PHOSPHORUS LEVEL 3.7 MG/DL (2.5-4.9); POTASSIUM SERUM 3.8 MEQ/L (3.5-5.1); PREALBUMIN 17.7 MG/DL (20.0-40.0); TOTAL PROTEIN 6.3 GM/DL (6.4-8.2)
== END ==
LOC: M SHH 13:12
PROVIDERS: ATTEND Internal Medicine Gastroenterology
DX: K65.1 Peritoneal abscess (principal); K50.814 Crohn's disease of both small and large intestine with abscess; E44.0 Moderate protein-calorie malnutrition

== ENCOUNTER 2018-12-05 08:41 | Outpatient (CLI) | payer MEDICARE, OTHER ==
[~2018-12-05] VITALS: Ht 154.9 cm; Wt 57.3 kg
[2018-12-05 08:45] VITALS: BP 152/78
[2018-12-05] MEDS ORDERED: SODIUM CHLORIDE 0.9% INJ 10 ML SYR IV PRN (09:15)
[2018-12-05] MEDS ORDERED: VEDOLIZUMAB 300 MG in NS 250 ML IV ONE (09:30)
[2018-12-05 10:00] VITALS: BP 138/70
[2018-12-05] MEDS ORDERED: SODIUM CHLORIDE 0.9% INJ 10 ML SYR IV SCH (18:00)
== END 2018-12-05 10:15 | disposition home or self-care (01) ==
LOC: M INFU 08:41
PROVIDERS: ATTEND Internal Medicine Gastroenterology
DX: K50.90 Crohn's disease, unspecified, without complications (principal)

== ENCOUNTER → 2018-12-10 | Outpatient (REF) | payer MEDICARE, OTHER ==
[2018-12-10 10:21] LABS: HEMATOCRIT 30.1 % (36.0-47.0); HEMOGLOBIN 9.1 g/dl (12.0-15.5); MEAN CORPUSCULAR HEMOGLOBIN 24.9 pg (27.0-33.0); MEAN CORPUSCULAR HGB CONC 30.2 g/dl (32.0-36.5); MEAN CORPUSCULAR VOLUME 82.5 fl (80.0-96.0); PLATELET COUNT, AUTOMATED 244 10^3/uL (150-450); RED BLOOD COUNT 3.65 10^6/uL (4.00-5.40); WHITE BLOOD COUNT 6.1 10^3/uL (4.0-10.0)
[2018-12-10 10:41] LABS: CALCIUM LEVEL 8.3 MG/DL (8.8-10.2); CREATININE FOR GFR 1.07 MG/DL (0.55-1.30); GLOMERULAR FILTRATION RATE 53.8 (>39); MAGNESIUM LEVEL 2.1 MG/DL (1.8-2.4); PHOSPHORUS LEVEL 3.4 MG/DL (2.5-4.9); PREALBUMIN 26.4 MG/DL (20.0-40.0)
== END ==
LOC: M LAB REF 09:56
PROVIDERS: ATTEND Internal Medicine Gastroenterology
DX: E44.0 Moderate protein-calorie malnutrition (principal); K50.814 Crohn's disease of both small and large intestine with abscess

== ENCOUNTER → 2018-12-17 | Outpatient (REF) | payer MEDICARE ==
[2018-12-17 11:00] LABS: BLOOD UREA NITROGEN 44 MG/DL (7-18); CALCIUM LEVEL 8.5 MG/DL (8.8-10.2); CARBON DIOXIDE LEVEL 27 MEQ/L (21-32); CHLORIDE LEVEL 106 MEQ/L (98-107); CREATININE FOR GFR 0.97 MG/DL (0.55-1.30); GLOMERULAR FILTRATION RATE > 60.0 (>39); GLUCOSE, FASTING 83 MG/DL (70-100); HEMATOCRIT 30.3 % (36.0-47.0); HEMOGLOBIN 9.2 g/dl (12.0-15.5); MEAN CORPUSCULAR HEMOGLOBIN 24.8 pg (27.0-33.0); MEAN CORPUSCULAR HGB CONC 30.4 g/dl (32.0-36.5); MEAN CORPUSCULAR VOLUME 81.7 fl (80.0-96.0); PHOSPHORUS LEVEL 3.4 MG/DL (2.5-4.9); PLATELET COUNT, AUTOMATED 246 10^3/uL (150-450); POTASSIUM SERUM 3.7 MEQ/L (3.5-5.1); RED BLOOD COUNT 3.71 10^6/uL (4.00-5.40); SODIUM LEVEL 143 MEQ/L (136-145); WHITE BLOOD COUNT 5.1 10^3/uL (4.0-10.0)
[2018-12-17 11:18] LABS: PREALBUMIN 21.6 MG/DL (20.0-40.0)
== END ==
LOC: M SHH 10:34
PROVIDERS: ATTEND Internal Medicine Gastroenterology
DX: E44.0 Moderate protein-calorie malnutrition (principal); K50.814 Crohn's disease of both small and large intestine with abscess

== ENCOUNTER → 2018-12-25 | Outpatient (REF) | payer MEDICARE ==
[2018-12-25 12:29] LABS: HEMATOCRIT 31.2 % (36.0-47.0); HEMOGLOBIN 9.5 g/dl (12.0-15.5); MEAN CORPUSCULAR HEMOGLOBIN 25.4 pg (27.0-33.0); MEAN CORPUSCULAR HGB CONC 30.4 g/dl (32.0-36.5); MEAN CORPUSCULAR VOLUME 83.4 fl (80.0-96.0); PLATELET COUNT, AUTOMATED 217 10^3/uL (150-450); RED BLOOD COUNT 3.74 10^6/uL (4.00-5.40); WHITE BLOOD COUNT 3.5 10^3/uL (4.0-10.0)
[2018-12-25 12:56] LABS: CALCIUM LEVEL 8.7 MG/DL (8.8-10.2); CREATININE FOR GFR 1.05 MG/DL (0.55-1.30); MAGNESIUM LEVEL 2.2 MG/DL (1.8-2.4); PHOSPHORUS LEVEL 3.7 MG/DL (2.5-4.9); POTASSIUM SERUM 3.8 MEQ/L (3.5-5.1); PREALBUMIN 18.6 MG/DL (20.0-40.0)
== END ==
LOC: M SHH 11:24
PROVIDERS: ATTEND Internal Medicine Gastroenterology
DX: E44.0 Moderate protein-calorie malnutrition (principal); K50.814 Crohn's disease of both small and large intestine with abscess
CPT/HCPCS: 80048; 83735; 84100; 84134; 85027; 96372; J3420

== ENCOUNTER → 2018-12-31 | Outpatient (REF) | payer MEDICARE ==
[2018-12-31 14:17] LABS: HEMATOCRIT 31.8 % (36.0-47.0); HEMOGLOBIN 9.7 g/dl (12.0-15.5); MEAN CORPUSCULAR HEMOGLOBIN 25.7 pg (27.0-33.0); MEAN CORPUSCULAR HGB CONC 30.5 g/dl (32.0-36.5); MEAN CORPUSCULAR VOLUME 84.4 fl (80.0-96.0); PLATELET COUNT, AUTOMATED 239 10^3/uL (150-450); RED BLOOD COUNT 3.77 10^6/uL (4.00-5.40); WHITE BLOOD COUNT 3.4 10^3/uL (4.0-10.0)
[2018-12-31 15:06] LABS: CALCIUM LEVEL 8.4 MG/DL (8.8-10.2); CREATININE FOR GFR 1.07 MG/DL (0.55-1.30); GLOMERULAR FILTRATION RATE 53.8 (>39); MAGNESIUM LEVEL 2.2 MG/DL (1.8-2.4); PHOSPHORUS LEVEL 3.6 MG/DL (2.5-4.9); POTASSIUM SERUM 3.8 MEQ/L (3.5-5.1); PREALBUMIN 17.9 MG/DL (20.0-40.0)
== END ==
LOC: M SHH 13:33
PROVIDERS: ATTEND Internal Medicine Gastroenterology
DX: E44.0 Moderate protein-calorie malnutrition (principal); K50.814 Crohn's disease of both small and large intestine with abscess

== ENCOUNTER → 2019-01-07 | Outpatient (REF) | payer MEDICARE ==
[2019-01-07 11:34] LABS: HEMATOCRIT 33.4 % (36.0-47.0); HEMOGLOBIN 9.9 g/dl (12.0-15.5); MEAN CORPUSCULAR HEMOGLOBIN 24.8 pg (27.0-33.0); MEAN CORPUSCULAR HGB CONC 29.6 g/dl (32.0-36.5); MEAN CORPUSCULAR VOLUME 83.5 fl (80.0-96.0); PLATELET COUNT, AUTOMATED 272 10^3/uL (150-450); WHITE BLOOD COUNT 3.9 10^3/uL (4.0-10.0)
[2019-01-07 11:45] LABS: CALCIUM LEVEL 8.3 MG/DL (8.8-10.2); CREATININE FOR GFR 1.07 MG/DL (0.55-1.30); GLOMERULAR FILTRATION RATE 53.8 (>39); MAGNESIUM LEVEL 1.9 MG/DL (1.8-2.4); PHOSPHORUS LEVEL 3.5 MG/DL (2.5-4.9); POTASSIUM SERUM 3.8 MEQ/L (3.5-5.1); PREALBUMIN 19.1 MG/DL (20.0-40.0)
== END ==
LOC: M SHH 10:31
PROVIDERS: ATTEND Internal Medicine Gastroenterology
DX: K50.814 Crohn's disease of both small and large intestine with abscess (principal); E44.0 Moderate protein-calorie malnutrition

== ENCOUNTER → 2019-01-14 | Outpatient (REF) | payer MEDICARE ==
[2019-01-14 14:02] LABS: HEMATOCRIT 32.3 % (36.0-47.0); HEMOGLOBIN 9.8 g/dl (12.0-15.5); MEAN CORPUSCULAR HEMOGLOBIN 25.5 pg (27.0-33.0); MEAN CORPUSCULAR HGB CONC 30.3 g/dl (32.0-36.5); MEAN CORPUSCULAR VOLUME 83.9 fl (80.0-96.0); PLATELET COUNT, AUTOMATED 259 10^3/uL (150-450); RED BLOOD COUNT 3.85 10^6/uL (4.00-5.40); WHITE BLOOD COUNT 3.9 10^3/uL (4.0-10.0)
[2019-01-14 14:30] LABS: CALCIUM LEVEL 8.4 MG/DL (8.8-10.2); CREATININE FOR GFR 1.05 MG/DL (0.55-1.30); PHOSPHORUS LEVEL 3.6 MG/DL (2.5-4.9); PREALBUMIN 19.5 MG/DL (20.0-40.0)
== END ==
LOC: M SHH 13:30
PROVIDERS: ATTEND Internal Medicine Gastroenterology
DX: E44.0 Moderate protein-calorie malnutrition (principal); K50.814 Crohn's disease of both small and large intestine with abscess

== ENCOUNTER → 2019-01-21 | Outpatient (REF) | payer MEDICARE ==
[~2019-01-21] MED LIST changes: +CALC-260 PO; +CHLO25TA PO; +DICL1GEL3; +ENTY1INJ IV; +FERR240T PO; +LOSA25TA14 PO; -MECL-68 PO; +MECL1TAB31 PO; +OXYC1TAB PO; +PANT20TA2 PO; +TORS10TA3 PO
[2019-01-21 12:10] LABS: HEMATOCRIT 32.6 % (36.0-47.0); HEMOGLOBIN 9.8 g/dl (12.0-15.5); MEAN CORPUSCULAR HEMOGLOBIN 24.9 pg (27.0-33.0); MEAN CORPUSCULAR HGB CONC 30.1 g/dl (32.0-36.5); MEAN CORPUSCULAR VOLUME 82.7 fl (80.0-96.0); PLATELET COUNT, AUTOMATED 259 10^3/uL (150-450); RED BLOOD COUNT 3.94 10^6/uL (4.00-5.40)
[2019-01-21 12:40] LABS: BLOOD UREA NITROGEN 42 MG/DL (7-18); CALCIUM LEVEL 8.6 MG/DL (8.8-10.2); CARBON DIOXIDE LEVEL 29 MEQ/L (21-32); CHLORIDE LEVEL 105 MEQ/L (98-107); CREATININE FOR GFR 0.97 MG/DL (0.55-1.30); GLOMERULAR FILTRATION RATE > 60.0 (>39); GLUCOSE, FASTING 77 MG/DL (70-100); PHOSPHORUS LEVEL 3.7 MG/DL (2.5-4.9); POTASSIUM SERUM 3.9 MEQ/L (3.5-5.1); PREALBUMIN 17.8 MG/DL (20.0-40.0); SODIUM LEVEL 140 MEQ/L (136-145)
== END ==
LOC: M SHH 11:51
PROVIDERS: ATTEND Internal Medicine Gastroenterology
DX: E44.0 Moderate protein-calorie malnutrition (principal); K50.814 Crohn's disease of both small and large intestine with abscess

== ENCOUNTER → 2019-01-28 | Outpatient (REF) | payer MEDICARE ==
[2019-01-28 12:02] LABS: HEMATOCRIT 32.2 % (36.0-47.0); HEMOGLOBIN 9.7 g/dl (12.0-15.5); MEAN CORPUSCULAR HEMOGLOBIN 25.1 pg (27.0-33.0); MEAN CORPUSCULAR HGB CONC 30.1 g/dl (32.0-36.5); MEAN CORPUSCULAR VOLUME 83.4 fl (80.0-96.0); PLATELET COUNT, AUTOMATED 242 10^3/uL (150-450); RED BLOOD COUNT 3.86 10^6/uL (4.00-5.40); WHITE BLOOD COUNT 3.6 10^3/uL (4.0-10.0)
[2019-01-28 12:09] LABS: CALCIUM LEVEL 8.2 MG/DL (8.8-10.2); CREATININE FOR GFR 1.02 MG/DL (0.55-1.30); GLOMERULAR FILTRATION RATE 56.7 (>39); MAGNESIUM LEVEL 1.9 MG/DL (1.8-2.4); PHOSPHORUS LEVEL 3.7 MG/DL (2.5-4.9); POTASSIUM SERUM 3.9 MEQ/L (3.5-5.1); PREALBUMIN 17.6 MG/DL (20.0-40.0)
== END ==
LOC: M SHH 10:46
PROVIDERS: ATTEND Internal Medicine Gastroenterology
DX: E44.0 Moderate protein-calorie malnutrition (principal); K50.814 Crohn's disease of both small and large intestine with abscess

== ENCOUNTER 2019-01-30 08:45 | Outpatient (CLI) | payer MEDICARE ==
[~2019-01-30] VITALS: Ht 154.9 cm; Wt 57.3 kg
[~2019-01-30 08:45] MED LIST changes: -CALC-260 PO; -CHLO25TA PO; -DICL1GEL3; -ENTY1INJ IV; -FERR240T PO; -LOSA25TA14 PO; +MECL-68 PO; -MECL1TAB31 PO; -OXYC1TAB PO; -PANT20TA2 PO; -TORS10TA3 PO
[2019-01-30 08:50] VITALS: BP 151/85
[2019-01-30] MEDS ORDERED: SODIUM CHLORIDE 0.9% INJ 10 ML SYR IV SCH ×2 (09:00→18:00)
[2019-01-30] MEDS ORDERED: SODIUM CHLORIDE 0.9% INJ 10 ML SYR IV PRN ×2 (09:00→09:15)
[2019-01-30] MEDS ORDERED: OXYC1TAB PO (09:51)
[2019-01-30] MEDS ORDERED: CALC-260 PO (09:51)
[2019-01-30] MEDS ORDERED: CHLO25TA PO (09:51)
[2019-01-30] MEDS ORDERED: VEDOLIZUMAB 300 MG in NS 250 ML IV ONE (10:00)
[2019-01-30 10:25] VITALS: BP 159/77
== END 2019-01-30 10:25 ==
LOC: M INFU 08:45
PROVIDERS: ATTEND Internal Medicine Gastroenterology
DX: K50.90 Crohn's disease, unspecified, without complications (principal); Z88.2 Allergy status to sulfonamides; Z88.8 Allergy status to other drugs, medicaments and biological substances

== ENCOUNTER → 2019-02-05 | Outpatient (REF) | payer MEDICARE ==
[~2019-02-05] MED LIST changes: +CALC-260 PO; +CHLO25TA PO; +OXYC1TAB PO
[2019-02-05 13:48] LABS: ALBUMIN 2.2 GM/DL (3.2-5.2); BILIRUBIN,DIRECT 0.2 MG/DL (0.0-0.2); BILIRUBIN,TOTAL 0.5 MG/DL (0.2-1.0); C REACTIVE PROTEIN QUANTITATIV 1.15 MG/DL (0.00-0.30); CALCIUM LEVEL 8.7 MG/DL (8.8-10.2); CREATININE FOR GFR 1.05 MG/DL (0.55-1.30); GLOMERULAR FILTRATION RATE 54.8 (>39); PHOSPHORUS LEVEL 3.6 MG/DL (2.5-4.9); POTASSIUM SERUM 3.7 MEQ/L (3.5-5.1); PREALBUMIN 18.8 MG/DL (20.0-40.0); TOTAL PROTEIN 6.1 GM/DL (6.4-8.2)
[2019-02-05 13:51] LABS: HEMATOCRIT 33.5 % (36.0-47.0); HEMOGLOBIN 10.2 g/dl (12.0-15.5); MEAN CORPUSCULAR HGB CONC 30.4 g/dl (32.0-36.5); MEAN CORPUSCULAR VOLUME 82.1 fl (80.0-96.0); PLATELET COUNT, AUTOMATED 265 10^3/uL (150-450); RED BLOOD COUNT 4.08 10^6/uL (4.00-5.40); WHITE BLOOD COUNT 3.7 10^3/uL (4.0-10.0)
[2019-02-05 14:43] LABS: ERYTHROCYTE SEDIMENTATION RATE 100 mm/hr (0-30)
== END ==
LOC: M SHH 12:23
PROVIDERS: ATTEND Internal Medicine Gastroenterology
DX: K50.814 Crohn's disease of both small and large intestine with abscess (principal); E44.0 Moderate protein-calorie malnutrition
CPT/HCPCS: 80048; 80076; 82977; 83735; 84100; 84134; 85027; 85652; 86140; 90682; G0008; G0463

== ENCOUNTER → 2019-02-11 | Outpatient (REF) | payer MEDICARE ==
[2019-02-11 13:59] LABS: HEMATOCRIT 31.9 % (36.0-47.0); HEMOGLOBIN 9.7 g/dl (12.0-15.5); MEAN CORPUSCULAR HEMOGLOBIN 25.1 pg (27.0-33.0); MEAN CORPUSCULAR HGB CONC 30.4 g/dl (32.0-36.5); MEAN CORPUSCULAR VOLUME 82.6 fl (80.0-96.0); PLATELET COUNT, AUTOMATED 257 10^3/uL (150-450); RED BLOOD COUNT 3.86 10^6/uL (4.00-5.40); WHITE BLOOD COUNT 3.5 10^3/uL (4.0-10.0)
[2019-02-11 14:34] LABS: CALCIUM LEVEL 8.3 MG/DL (8.8-10.2); CREATININE FOR GFR 1.09 MG/DL (0.55-1.30); GLOMERULAR FILTRATION RATE 52.5 (>39); MAGNESIUM LEVEL 2.3 MG/DL (1.8-2.4); POTASSIUM SERUM 4.3 MEQ/L (3.5-5.1); PREALBUMIN 19.6 MG/DL (20.0-40.0)
== END ==
LOC: M SHH 13:26 → M LAB REF 13:26
PROVIDERS: ATTEND Internal Medicine Gastroenterology
DX: K50.814 Crohn's disease of both small and large intestine with abscess (principal); E44.0 Moderate protein-calorie malnutrition

== ENCOUNTER → 2019-02-18 | Outpatient (REF) | payer MEDICARE ==
[2019-02-18 13:31] LABS: HEMATOCRIT 32.1 % (36.0-47.0); HEMOGLOBIN 9.8 g/dl (12.0-15.5); MEAN CORPUSCULAR HEMOGLOBIN 25.6 pg (27.0-33.0); MEAN CORPUSCULAR HGB CONC 30.5 g/dl (32.0-36.5); MEAN CORPUSCULAR VOLUME 83.8 fl (80.0-96.0); PLATELET COUNT, AUTOMATED 263 10^3/uL (150-450); RED BLOOD COUNT 3.83 10^6/uL (4.00-5.40); WHITE BLOOD COUNT 3.8 10^3/uL (4.0-10.0)
[2019-02-18 14:08] LABS: CREATININE FOR GFR 1.04 MG/DL (0.55-1.30); GLOMERULAR FILTRATION RATE 55.5 (>39); MAGNESIUM LEVEL 2.2 MG/DL (1.8-2.4); PHOSPHORUS LEVEL 4.1 MG/DL (2.5-4.9); POTASSIUM SERUM 4.2 MEQ/L (3.5-5.1); PREALBUMIN 19.1 MG/DL (20.0-40.0)
== END ==
LOC: M SHH 12:55
PROVIDERS: ATTEND Internal Medicine Gastroenterology
DX: E44.0 Moderate protein-calorie malnutrition (principal); K50.814 Crohn's disease of both small and large intestine with abscess

== ENCOUNTER → 2019-02-25 | Outpatient (REF) | payer MEDICARE ==
[2019-02-25 11:58] LABS: HEMATOCRIT 31.7 % (36.0-47.0); HEMOGLOBIN 9.6 g/dl (12.0-15.5); MEAN CORPUSCULAR HGB CONC 30.3 g/dl (32.0-36.5); MEAN CORPUSCULAR VOLUME 82.6 fl (80.0-96.0); PLATELET COUNT, AUTOMATED 262 10^3/uL (150-450); RED BLOOD COUNT 3.84 10^6/uL (4.00-5.40); WHITE BLOOD COUNT 3.8 10^3/uL (4.0-10.0)
[2019-02-25 12:21] LABS: ERYTHROCYTE SEDIMENTATION RATE 106 mm/hr (0-30)
[2019-02-25 12:33] LABS: ALBUMIN 2.2 GM/DL (3.2-5.2); BILIRUBIN,DIRECT 0.2 MG/DL (0.0-0.2); BILIRUBIN,TOTAL 0.6 MG/DL (0.2-1.0); CALCIUM LEVEL 8.6 MG/DL (8.8-10.2); CREATININE FOR GFR 1.11 MG/DL (0.55-1.30); GLOMERULAR FILTRATION RATE 51.4 (>39); MAGNESIUM LEVEL 2.3 MG/DL (1.8-2.4); PHOSPHORUS LEVEL 4.3 MG/DL (2.5-4.9); POTASSIUM SERUM 4.5 MEQ/L (3.5-5.1); TOTAL PROTEIN 6.1 GM/DL (6.4-8.2)
== END ==
LOC: M SHH 10:51
PROVIDERS: ATTEND Internal Medicine Gastroenterology
DX: E44.0 Moderate protein-calorie malnutrition (principal); K50.814 Crohn's disease of both small and large intestine with abscess

== ENCOUNTER → 2019-02-25 | Outpatient (REF) | payer MEDICARE ==
[~2019-02-25] MED LIST changes: +LOSA25TA14 PO; +PANT20TA2 PO; +TORS10TA3 PO
== END ==
LOC: M SFHCPLAZ 19:47
PROVIDERS: ATTEND Dermatology
DX: C44.519 Basal cell carcinoma of skin of other part of trunk (principal); C44.320 Squamous cell carcinoma of skin of unspecified parts of face; L57.0 Actinic keratosis

== ENCOUNTER → 2019-03-04 | Outpatient (REF) | payer MEDICARE ==
[~2019-03-04] MED LIST changes: -LOSA25TA14 PO; -PANT20TA2 PO; -TORS10TA3 PO
[2019-03-04 12:13] LABS: HEMATOCRIT 30.2 % (36.0-47.0); HEMOGLOBIN 9.1 g/dl (12.0-15.5); MEAN CORPUSCULAR HEMOGLOBIN 25.3 pg (27.0-33.0); MEAN CORPUSCULAR HGB CONC 30.1 g/dl (32.0-36.5); MEAN CORPUSCULAR VOLUME 84.1 fl (80.0-96.0); PLATELET COUNT, AUTOMATED 264 10^3/uL (150-450); RED BLOOD COUNT 3.59 10^6/uL (4.00-5.40); WHITE BLOOD COUNT 3.4 10^3/uL (4.0-10.0)
[2019-03-04 12:20] LABS: CALCIUM LEVEL 8.5 MG/DL (8.8-10.2); CREATININE FOR GFR 1.13 MG/DL (0.55-1.30); GLOMERULAR FILTRATION RATE 50.4 (>39); PHOSPHORUS LEVEL 4.3 MG/DL (2.5-4.9); POTASSIUM SERUM 4.7 MEQ/L (3.5-5.1); PREALBUMIN 21.9 MG/DL (20.0-40.0)
== END ==
LOC: M SHH 11:29
PROVIDERS: ATTEND Internal Medicine Gastroenterology
DX: E44.0 Moderate protein-calorie malnutrition (principal); K50.814 Crohn's disease of both small and large intestine with abscess

== ENCOUNTER → 2019-03-06 | Outpatient (REF) | payer MEDICARE | LOC: M SFHCADAM 14:04 | PROVIDERS: ATTEND Physician Assistant | DX: E01.0 Iodine-deficiency related diffuse (endemic) goiter (principal) ==

== ENCOUNTER → 2019-03-11 | Outpatient (REF) | payer MEDICARE ==
[2019-03-11 12:16] LABS: HEMATOCRIT 30.2 % (36.0-47.0); HEMOGLOBIN 9.2 g/dl (12.0-15.5); MEAN CORPUSCULAR HEMOGLOBIN 25.5 pg (27.0-33.0); MEAN CORPUSCULAR HGB CONC 30.5 g/dl (32.0-36.5); MEAN CORPUSCULAR VOLUME 83.7 fl (80.0-96.0); PLATELET COUNT, AUTOMATED 236 10^3/uL (150-450); RED BLOOD COUNT 3.61 10^6/uL (4.00-5.40); WHITE BLOOD COUNT 3.7 10^3/uL (4.0-10.0)
[2019-03-11 12:33] LABS: CALCIUM LEVEL 8.8 MG/DL (8.8-10.2); CREATININE FOR GFR 1.13 MG/DL (0.55-1.30); GLOMERULAR FILTRATION RATE 50.4 (>39); MAGNESIUM LEVEL 2.2 MG/DL (1.8-2.4); PHOSPHORUS LEVEL 4.3 MG/DL (2.5-4.9); POTASSIUM SERUM 4.5 MEQ/L (3.5-5.1); PREALBUMIN 24.2 MG/DL (20.0-40.0)
== END ==
LOC: M SHH 11:27
PROVIDERS: ATTEND Internal Medicine Gastroenterology
DX: E44.0 Moderate protein-calorie malnutrition (principal); K50.814 Crohn's disease of both small and large intestine with abscess

== ENCOUNTER → 2019-03-11 | Outpatient (REF) | payer MEDICARE ==
[2019-03-11 12:35] LABS: FREE T4 1.17 NG/DL (0.76-1.46); THYROID STIMULATING HORMONE 1.46 uIU/ML (0.358-3.740)
== END ==
LOC: M SHH 11:30
PROVIDERS: ATTEND Physician Assistant
DX: E01.0 Iodine-deficiency related diffuse (endemic) goiter (principal); E44.0 Moderate protein-calorie malnutrition; K50.814 Crohn's disease of both small and large intestine with abscess

== ENCOUNTER → 2019-03-14 | Outpatient (CLI) | payer MEDICARE ==
--- NOTE | 2019-03-14 12:10 | REP ---
THYROID ULTRASOUND: Real-time sonographic evaluation of the thyroid performed. Both lobes are mildly enlarged with diffuse heterogeneous echotexture. Right lobe measures 5.9 x 2.9 x 2.5 cm and left lobe 5.3 x 2.5 x 2.3 cm. Tiny hypoechoic nodule in the mid aspect of the right lobe measures 4 mm and is of doubtful significance. No other nodule is seen bilaterally. IMPRESSION: Mild thyromegaly. 4 mm nodule mid right lobe is of doubtful significance. Electronically Signed by Brando Moss MD 03/14/2019 12:58 P
== END ==
LOC: M RAD 11:00
PROVIDERS: ATTEND Physician Assistant
DX: E01.0 Iodine-deficiency related diffuse (endemic) goiter (principal)

== ENCOUNTER → 2019-03-18 | Outpatient (REF) | payer MEDICARE | LOC: M SHH 10:11 | PROVIDERS: ATTEND Internal Medicine Gastroenterology | DX: E44.0 Moderate protein-calorie malnutrition (principal); K50.814 Crohn's disease of both small and large intestine with abscess ==

== ENCOUNTER → 2019-03-18 | Outpatient (REF) | payer MEDICARE ==
[2019-03-18 11:52] LABS: BASO % 0.3 % (0.0-1.0); EOS # 0.1 10^3/uL (0.0-0.5); EOS % 3.2 % (0.0-3.0); HEMATOCRIT 30.3 % (36.0-47.0); HEMOGLOBIN 9.3 g/dl (12.0-15.5); LYMPH # 0.6 10^3/uL (1.5-5.0); LYMPH % 17.9 % (24.0-44.0); MEAN CORPUSCULAR HEMOGLOBIN 25.9 pg (27.0-33.0); MEAN CORPUSCULAR HGB CONC 30.7 g/dl (32.0-36.5); MEAN CORPUSCULAR VOLUME 84.4 fl (80.0-96.0); MONO # 0.4 10^3/uL (0.0-0.8); NEUTROPHILS # 2.3 10^3/uL (1.5-8.5); NEUTROPHILS % 67.3 % (36.0-66.0); PLATELET COUNT, AUTOMATED 207 10^3/uL (150-450); RED BLOOD COUNT 3.59 10^6/uL (4.00-5.40); WHITE BLOOD COUNT 3.5 10^3/uL (4.0-10.0)
[2019-03-18 12:05] LABS: ALBUMIN 2.3 GM/DL (3.2-5.2); CALCIUM LEVEL 8.5 MG/DL (8.8-10.2); CREATININE FOR GFR 1.12 MG/DL (0.55-1.30); GLOMERULAR FILTRATION RATE 50.9 (>39); MAGNESIUM LEVEL 2.2 MG/DL (1.8-2.4); PHOSPHORUS LEVEL 3.8 MG/DL (2.5-4.9); POTASSIUM SERUM 4.3 MEQ/L (3.5-5.1)
== END ==
LOC: M SHH 10:10
PROVIDERS: ATTEND Internal Medicine Nephrology
DX: N18.2 Chronic kidney disease, stage 2 (mild) (principal); D50.9 Iron deficiency anemia, unspecified; Z93.2 Ileostomy status; E44.0 Moderate protein-calorie malnutrition; K50.814 Crohn's disease of both small and large intestine with abscess

== ENCOUNTER → 2019-03-25 | Outpatient (REF) | payer MEDICARE ==
[~2019-03-25] MED LIST changes: +DICL1GEL3; +ENTY1INJ IV; +FERR240T PO; +LOSA25TA14 PO; +PANT20TA2 PO; +TORS10TA3 PO
[2019-03-25 14:51] LABS: HEMATOCRIT 31.8 % (36.0-47.0); HEMOGLOBIN 9.6 g/dl (12.0-15.5); MEAN CORPUSCULAR HGB CONC 30.2 g/dl (32.0-36.5); MEAN CORPUSCULAR VOLUME 86.2 fl (80.0-96.0); PLATELET COUNT, AUTOMATED 232 10^3/uL (150-450); RED BLOOD COUNT 3.69 10^6/uL (4.00-5.40); WHITE BLOOD COUNT 4.4 10^3/uL (4.0-10.0)
[2019-03-25 15:21] LABS: CALCIUM LEVEL 8.8 MG/DL (8.8-10.2); CREATININE FOR GFR 1.22 MG/DL (0.55-1.30); GLOMERULAR FILTRATION RATE 46.1 (>39); MAGNESIUM LEVEL 2.3 MG/DL (1.8-2.4); PHOSPHORUS LEVEL 4.4 MG/DL (2.5-4.9); POTASSIUM SERUM 4.5 MEQ/L (3.5-5.1); PREALBUMIN 21.9 MG/DL (20.0-40.0)
== END ==
LOC: M SHH 14:24
PROVIDERS: ATTEND Internal Medicine Gastroenterology
DX: E44.0 Moderate protein-calorie malnutrition (principal); K50.814 Crohn's disease of both small and large intestine with abscess

== ENCOUNTER 2019-03-27 08:04 | Outpatient (CLI) | payer MEDICARE ==
[~2019-03-27] VITALS: Ht 154.9 cm; Wt 57.3 kg
[~2019-03-27 08:04] MED LIST changes: -DICL1GEL3; -ENTY1INJ IV; -FERR240T PO; -LOSA25TA14 PO; -PANT20TA2 PO; -TORS10TA3 PO
[2019-03-27 09:00] VITALS: BP 153/67
[2019-03-27] MEDS ORDERED: VEDOLIZUMAB 300 MG in NS 250 ML IV ONE (09:30)
[2019-03-27] MEDS ORDERED: TORS10TA3 PO (10:12)
[2019-03-27] MEDS ORDERED: PANT20TA2 PO (10:12)
[2019-03-27] MEDS ORDERED: LOSA25TA14 PO (10:12)
[2019-03-27 11:00] VITALS: BP 133/60
[2019-03-27] MEDS ORDERED: SODIUM CHLORIDE 0.9% INJ 10 ML SYR IV PRN (11:15)
[2019-03-27] MEDS ORDERED: SODIUM CHLORIDE 0.9% INJ 10 ML SYR IV SCH (18:00)
[2019-04-02] MEDS ORDERED: DICL1GEL3 (09:28)
[2019-04-02] MEDS ORDERED: ENTY1INJ IV (09:28)
[2019-04-02] MEDS ORDERED: FERR240T PO (09:28)
== END 2019-03-27 11:00 | disposition home or self-care (01) ==
LOC: M INFU 08:04
PROVIDERS: ATTEND Internal Medicine Gastroenterology
DX: K50.90 Crohn's disease, unspecified, without complications (principal); Z88.2 Allergy status to sulfonamides; Z88.8 Allergy status to other drugs, medicaments and biological substances

== ENCOUNTER → 2019-04-01 | Outpatient (REF) | payer MEDICARE ==
[~2019-04-01] MED LIST changes: +DICL1GEL3; +ENTY1INJ IV; +FERR240T PO; +LOSA25TA14 PO; +PANT20TA2 PO; +TORS10TA3 PO
[2019-04-01 11:48] LABS: HEMATOCRIT 33.9 % (36.0-47.0); HEMOGLOBIN 10.2 g/dl (12.0-15.5); MEAN CORPUSCULAR HEMOGLOBIN 26.2 pg (27.0-33.0); MEAN CORPUSCULAR HGB CONC 30.1 g/dl (32.0-36.5); MEAN CORPUSCULAR VOLUME 86.9 fl (80.0-96.0); PLATELET COUNT, AUTOMATED 241 10^3/uL (150-450); WHITE BLOOD COUNT 4.1 10^3/uL (4.0-10.0)
[2019-04-01 12:28] LABS: CALCIUM LEVEL 8.8 MG/DL (8.8-10.2); CREATININE FOR GFR 1.29 MG/DL (0.55-1.30); GLOMERULAR FILTRATION RATE 43.2 (>39); MAGNESIUM LEVEL 2.6 MG/DL (1.8-2.4); PHOSPHORUS LEVEL 4.5 MG/DL (2.5-4.9); POTASSIUM SERUM 4.3 MEQ/L (3.5-5.1); PREALBUMIN 28.1 MG/DL (20.0-40.0)
[2019-04-03 11:35] LABS: PERCENT SATURATION 24.4 % (13.2-45.0)
[2019-04-03 11:42] LABS: TOTAL 25(OH) VITAMIN D 19.5 NG/ML (30.0-100.0)
== END ==
LOC: M SHH 11:11
PROVIDERS: ATTEND Internal Medicine Gastroenterology
DX: E44.0 Moderate protein-calorie malnutrition (principal); K50.814 Crohn's disease of both small and large intestine with abscess

== ENCOUNTER → 2019-04-08 | Outpatient (REF) | payer MEDICARE ==
[2019-04-08 16:19] LABS: HEMATOCRIT 35.5 % (36.0-47.0); HEMOGLOBIN 10.8 g/dl (12.0-15.5); MEAN CORPUSCULAR HEMOGLOBIN 26.3 pg (27.0-33.0); MEAN CORPUSCULAR HGB CONC 30.4 g/dl (32.0-36.5); MEAN CORPUSCULAR VOLUME 86.6 fl (80.0-96.0); PLATELET COUNT, AUTOMATED 236 10^3/uL (150-450); WHITE BLOOD COUNT 4.3 10^3/uL (4.0-10.0)
[2019-04-08 16:40] LABS: BLOOD UREA NITROGEN 59 MG/DL (7-18)
[2019-04-08 16:41] LABS: CALCIUM LEVEL 9.1 MG/DL (8.8-10.2); CARBON DIOXIDE LEVEL 28 MEQ/L (21-32); CHLORIDE LEVEL 104 MEQ/L (98-107); GLOMERULAR FILTRATION RATE 39.4 (>39); MAGNESIUM LEVEL 2.6 MG/DL (1.8-2.4); PHOSPHORUS LEVEL 4.4 MG/DL (2.5-4.9); PREALBUMIN 25.9 MG/DL (20.0-40.0); SODIUM LEVEL 141 MEQ/L (136-145)
== END ==
LOC: M SHH 15:56
PROVIDERS: ATTEND Internal Medicine Gastroenterology
DX: K50.814 Crohn's disease of both small and large intestine with abscess (principal); E44.0 Moderate protein-calorie malnutrition

== ENCOUNTER → 2019-04-11 | Outpatient (REF) | payer MEDICARE ==
[~2019-04-11] MED LIST changes: -MECL-68 PO; +MECL1TAB31 PO
== END ==
LOC: M LAB REF 15:10
PROVIDERS: ATTEND Dermatology
DX: C44.519 Basal cell carcinoma of skin of other part of trunk (principal)

== ENCOUNTER → 2019-04-15 | Outpatient (REF) | payer MEDICARE ==
[~2019-04-15] MED LIST changes: +MECL-68 PO; -MECL1TAB31 PO
[2019-04-15 14:48] LABS: HEMATOCRIT 33.2 % (36.0-47.0); HEMOGLOBIN 9.9 g/dl (12.0-15.5); MEAN CORPUSCULAR HEMOGLOBIN 26.6 pg (27.0-33.0); MEAN CORPUSCULAR HGB CONC 29.8 g/dl (32.0-36.5); MEAN CORPUSCULAR VOLUME 89.2 fl (80.0-96.0); PLATELET COUNT, AUTOMATED 199 10^3/uL (150-450); RED BLOOD COUNT 3.72 10^6/uL (4.00-5.40); WHITE BLOOD COUNT 3.3 10^3/uL (4.0-10.0)
[2019-04-15 15:23] LABS: CALCIUM LEVEL 8.7 MG/DL (8.8-10.2); CREATININE FOR GFR 1.39 MG/DL (0.55-1.30); GLOMERULAR FILTRATION RATE 39.7 (>39); MAGNESIUM LEVEL 2.7 MG/DL (1.8-2.4); PHOSPHORUS LEVEL 4.3 MG/DL (2.5-4.9); POTASSIUM SERUM 4.5 MEQ/L (3.5-5.1); PREALBUMIN 24.9 MG/DL (20.0-40.0)
== END ==
LOC: M SHH 13:07
PROVIDERS: ATTEND Internal Medicine Gastroenterology
DX: K50.814 Crohn's disease of both small and large intestine with abscess (principal); E44.0 Moderate protein-calorie malnutrition

== ENCOUNTER → 2019-04-22 | Outpatient (REF) | payer MEDICARE ==
[2019-04-22 12:21] LABS: CALCIUM LEVEL 8.7 MG/DL (8.8-10.2); CREATININE FOR GFR 1.37 MG/DL (0.55-1.30); GLOMERULAR FILTRATION RATE 40.3 (>39); MAGNESIUM LEVEL 2.4 MG/DL (1.8-2.4); PHOSPHORUS LEVEL 4.7 MG/DL (2.5-4.9); POTASSIUM SERUM 4.2 MEQ/L (3.5-5.1)
== END ==
LOC: M SHH 11:32
PROVIDERS: ATTEND Internal Medicine Gastroenterology
DX: E44.0 Moderate protein-calorie malnutrition (principal); K50.814 Crohn's disease of both small and large intestine with abscess

== ENCOUNTER → 2019-04-22 | Outpatient (REF) | payer MEDICARE ==
[2019-04-22 11:59] LABS: BASO % 0.3 % (0.0-1.0); EOS # 0.2 10^3/uL (0.0-0.5); EOS % 4.5 % (0.0-3.0); HEMATOCRIT 31.9 % (36.0-47.0); LYMPH # 0.6 10^3/uL (1.5-5.0); LYMPH % 17.7 % (24.0-44.0); MEAN CORPUSCULAR HEMOGLOBIN 27.5 pg (27.0-33.0); MEAN CORPUSCULAR HGB CONC 31.3 g/dl (32.0-36.5); MEAN CORPUSCULAR VOLUME 87.9 fl (80.0-96.0); MONO # 0.4 10^3/uL (0.0-0.8); MONO % 11.5 % (0.0-5.0); NEUTROPHILS # 2.3 10^3/uL (1.5-8.5); NEUTROPHILS % 65.7 % (36.0-66.0); PLATELET COUNT, AUTOMATED 244 10^3/uL (150-450); RED BLOOD COUNT 3.63 10^6/uL (4.00-5.40); WHITE BLOOD COUNT 3.6 10^3/uL (4.0-10.0)
[2019-04-22 12:16] LABS: ALBUMIN 2.5 GM/DL (3.2-5.2); CALCIUM LEVEL 8.6 MG/DL (8.8-10.2); CREATININE FOR GFR 1.29 MG/DL (0.55-1.30); GLOMERULAR FILTRATION RATE 43.2 (>39); PERCENT SATURATION 12.7 % (13.2-45.0); PHOSPHORUS LEVEL 4.5 MG/DL (2.5-4.9); POTASSIUM SERUM 4.2 MEQ/L (3.5-5.1); URIC ACID 7.6 MG/DL (2.6-6.0)
== END ==
LOC: M SHH 11:36 → M LAB REF 11:36
PROVIDERS: ATTEND Internal Medicine Nephrology
DX: N18.3 Chronic kidney disease, stage 3 (moderate) (principal); D50.9 Iron deficiency anemia, unspecified

== ENCOUNTER → 2019-04-29 | Outpatient (REF) | payer MEDICARE ==
[2019-04-29 10:51] LABS: HEMATOCRIT 32.7 % (36.0-47.0); HEMOGLOBIN 9.8 g/dl (12.0-15.5); MEAN CORPUSCULAR HEMOGLOBIN 26.9 pg (27.0-33.0); MEAN CORPUSCULAR VOLUME 89.8 fl (80.0-96.0); PLATELET COUNT, AUTOMATED 225 10^3/uL (150-450); RED BLOOD COUNT 3.64 10^6/uL (4.00-5.40); WHITE BLOOD COUNT 3.1 10^3/uL (4.0-10.0)
[2019-04-29 11:23] LABS: CALCIUM LEVEL 8.9 MG/DL (8.8-10.2); CREATININE FOR GFR 1.28 MG/DL (0.55-1.30); GLOMERULAR FILTRATION RATE 43.6 (>39); MAGNESIUM LEVEL 2.1 MG/DL (1.8-2.4); PHOSPHORUS LEVEL 4.5 MG/DL (2.5-4.9); POTASSIUM SERUM 4.3 MEQ/L (3.5-5.1); PREALBUMIN 25.3 MG/DL (20.0-40.0)
== END ==
LOC: M SHH 10:08
PROVIDERS: ATTEND Internal Medicine Gastroenterology
DX: E44.0 Moderate protein-calorie malnutrition (principal); K50.814 Crohn's disease of both small and large intestine with abscess

== ENCOUNTER → 2019-05-06 | Outpatient (REF) | payer MEDICARE ==
[~2019-05-06] MED LIST changes: -MECL-68 PO; +MECL1TAB31 PO
[2019-05-06 13:17] LABS: HEMATOCRIT 31.9 % (36.0-47.0); HEMOGLOBIN 9.8 g/dl (12.0-15.5); MEAN CORPUSCULAR HEMOGLOBIN 27.7 pg (27.0-33.0); MEAN CORPUSCULAR HGB CONC 30.7 g/dl (32.0-36.5); MEAN CORPUSCULAR VOLUME 90.1 fl (80.0-96.0); PLATELET COUNT, AUTOMATED 210 10^3/uL (150-450); RED BLOOD COUNT 3.54 10^6/uL (4.00-5.40); WHITE BLOOD COUNT 3.7 10^3/uL (4.0-10.0)
[2019-05-06 13:31] LABS: CALCIUM LEVEL 8.7 MG/DL (8.8-10.2); CREATININE FOR GFR 1.08 MG/DL (0.55-1.30); GLOMERULAR FILTRATION RATE 53.1 (>39); MAGNESIUM LEVEL 2.1 MG/DL (1.8-2.4); PHOSPHORUS LEVEL 3.8 MG/DL (2.5-4.9); POTASSIUM SERUM 4.2 MEQ/L (3.5-5.1); PREALBUMIN 22.6 MG/DL (20.0-40.0)
== END ==
LOC: M SHH 11:53
PROVIDERS: ATTEND Internal Medicine Gastroenterology
DX: E44.0 Moderate protein-calorie malnutrition (principal); K50.814 Crohn's disease of both small and large intestine with abscess

== ENCOUNTER 2019-05-09 07:48 | Outpatient (CLI) | payer MEDICARE ==
[~2019-05-09] VITALS: Ht 154.9 cm; Wt 66.0 kg
[2019-05-09 08:00] VITALS: BP 151/70
[2019-05-09 08:45] VITALS: BP 133/62
[2019-05-09] MEDS ORDERED: EPINEPHrine INJ 1 MG/ML 1ML VIAL IM PRN (09:00)
[2019-05-09] MEDS ORDERED: FERRIC CARBOXYMALTOSE INJ 750 MG in NS 250 ML IV ONE (09:00)
[2019-05-09] MEDS ORDERED: diphenhydrAMINE INJ 50MG/ML VIAL (J1200) IV PRN (09:00)
[2019-05-09] MEDS ORDERED: ALBUTEROL SULFATE 2.5 MG/0.5 ML INH NEB SOLN INH PRN (09:00)
[2019-05-09] MEDS ORDERED: methylPREDNISolone INJ 125 MG/2 ML VIAL (J2930) IV PRN (09:00)
[2019-05-09] MEDS ORDERED: NS 1,000 ML IV SCH (09:00)
[2019-05-09] MEDS ORDERED: SODIUM CHLORIDE 0.9% INJ 10 ML SYR IV PRN (10:00)
[2019-05-09 10:29] VITALS: BP 131/60
[2019-05-09] MEDS ORDERED: SODIUM CHLORIDE 0.9% INJ 10 ML SYR IV SCH (18:00)
== END 2019-05-09 10:25 | disposition home or self-care (01) ==
LOC: M INFU 07:48
PROVIDERS: ATTEND Internal Medicine Nephrology
DX: D50.9 Iron deficiency anemia, unspecified (principal); Z88.2 Allergy status to sulfonamides; Z88.8 Allergy status to other drugs, medicaments and biological substances
CPT/HCPCS: 96365; 96366; J1439

== ENCOUNTER → 2019-05-13 | Outpatient (REF) | payer MEDICARE ==
[2019-05-13 11:25] LABS: HEMATOCRIT 33.8 % (36.0-47.0); HEMOGLOBIN 10.6 g/dl (12.0-15.5); MEAN CORPUSCULAR HEMOGLOBIN 28.7 pg (27.0-33.0); MEAN CORPUSCULAR HGB CONC 31.4 g/dl (32.0-36.5); MEAN CORPUSCULAR VOLUME 91.6 fl (80.0-96.0); PLATELET COUNT, AUTOMATED 194 10^3/uL (150-450); RED BLOOD COUNT 3.69 10^6/uL (4.00-5.40); WHITE BLOOD COUNT 3.6 10^3/uL (4.0-10.0)
[2019-05-13 12:06] LABS: CALCIUM LEVEL 8.6 MG/DL (8.8-10.2); CREATININE FOR GFR 1.28 MG/DL (0.55-1.30); GLOMERULAR FILTRATION RATE 43.6 (>39); MAGNESIUM LEVEL 1.9 MG/DL (1.8-2.4); PHOSPHORUS LEVEL 3.9 MG/DL (2.5-4.9); POTASSIUM SERUM 3.9 MEQ/L (3.5-5.1); PREALBUMIN 19.9 MG/DL (20.0-40.0)
== END ==
LOC: M SHH 10:48
PROVIDERS: ATTEND Internal Medicine Gastroenterology
DX: E44.0 Moderate protein-calorie malnutrition (principal); K50.814 Crohn's disease of both small and large intestine with abscess

== ENCOUNTER 2019-05-16 08:00 | Outpatient (CLI) | payer MEDICARE ==
[2019-05-16 08:00] VITALS: BP 156/73
[2019-05-16] MEDS ORDERED: SODIUM CHLORIDE 0.9% INJ 10 ML SYR IV PRN (08:15)
[2019-05-16] MEDS ORDERED: diphenhydrAMINE INJ 50MG/ML VIAL (J1200) IV PRN (08:15)
[2019-05-16] MEDS ORDERED: EPINEPHrine INJ 1 MG/ML 1ML VIAL IM PRN (08:15)
[2019-05-16] MEDS ORDERED: NS 1,000 ML IV SCH (08:15)
[2019-05-16] MEDS ORDERED: ALBUTEROL SULFATE 2.5 MG/0.5 ML INH NEB SOLN INH PRN (08:15)
[2019-05-16] MEDS ORDERED: FERRIC CARBOXYMALTOSE INJ 750 MG in NS 250 ML IV ONE (08:15)
[2019-05-16] MEDS ORDERED: methylPREDNISolone INJ 125 MG/2 ML VIAL (J2930) IV PRN (08:15)
[2019-05-16] MEDS: SODIUM CHLORIDE 0.9% INJ 10 ML SYR IV SCH ×2 (08:39→09:59)
[2019-05-16 09:00] VITALS: BP 141/67
[2019-05-16 10:00] VITALS: BP 145/65
[2019-05-16 10:30] VITALS: BP 138/72
== END 2019-05-16 10:30 | disposition home or self-care (01) ==
LOC: M INFU 08:00
PROVIDERS: ATTEND Internal Medicine Nephrology
DX: D50.9 Iron deficiency anemia, unspecified (principal); Z88.2 Allergy status to sulfonamides; Z88.4 Allergy status to anesthetic agent; Z88.8 Allergy status to other drugs, medicaments and biological substances
CPT/HCPCS: 96365; J1439; J1642

== ENCOUNTER → 2019-05-20 | Outpatient (REF) | payer MEDICARE ==
[2019-05-20 11:58] LABS: HEMATOCRIT 35.4 % (36.0-47.0); HEMOGLOBIN 10.8 g/dl (12.0-15.5); MEAN CORPUSCULAR HEMOGLOBIN 28.8 pg (27.0-33.0); MEAN CORPUSCULAR HGB CONC 30.5 g/dl (32.0-36.5); MEAN CORPUSCULAR VOLUME 94.4 fl (80.0-96.0); PLATELET COUNT, AUTOMATED 190 10^3/uL (150-450); RED BLOOD COUNT 3.75 10^6/uL (4.00-5.40); WHITE BLOOD COUNT 3.4 10^3/uL (4.0-10.0)
[2019-05-20 12:37] LABS: CALCIUM LEVEL 8.9 MG/DL (8.8-10.2); CREATININE FOR GFR 1.2 MG/DL (0.55-1.30); MAGNESIUM LEVEL 2.1 MG/DL (1.8-2.4); PHOSPHORUS LEVEL 3.4 MG/DL (2.5-4.9); PREALBUMIN 21.1 MG/DL (20.0-40.0)
== END ==
LOC: M SHH 11:12
PROVIDERS: ATTEND Internal Medicine Gastroenterology
DX: K50.814 Crohn's disease of both small and large intestine with abscess (principal); E44.0 Moderate protein-calorie malnutrition

== ENCOUNTER 2019-05-22 09:53 | Outpatient (CLI) | payer MEDICARE ==
[~2019-05-22] VITALS: Ht 154.9 cm; Wt 57.3 kg
[2019-05-22] MEDS ORDERED: VEDOLIZUMAB 300 MG in NS 250 ML IV ONE (10:15)
[2019-05-22] MEDS ORDERED: SODIUM CHLORIDE 0.9% INJ 10 ML SYR IV PRN (10:15)
[2019-05-22 11:06] VITALS: BP 138/64
[2019-05-22] MEDS ORDERED: SODIUM CHLORIDE 0.9% INJ 10 ML SYR IV SCH (18:00)
== END 2019-05-22 11:15 | disposition home or self-care (01) ==
LOC: M INFU 09:53
PROVIDERS: ATTEND Internal Medicine Gastroenterology
DX: K50.00 Crohn's disease of small intestine without complications (principal); Z88.2 Allergy status to sulfonamides; Z88.4 Allergy status to anesthetic agent; Z88.8 Allergy status to other drugs, medicaments and biological substances; Z88.9 Allergy status to unspecified drugs, medicaments and biological substances
CPT/HCPCS: 96365; J1642

== ENCOUNTER → 2019-05-23 | Outpatient (REF) | payer MEDICARE | LOC: M LAB REF 09:09 | PROVIDERS: ATTEND Dermatology | DX: C44.320 Squamous cell carcinoma of skin of unspecified parts of face (principal) ==

== ENCOUNTER → 2019-05-27 | Outpatient (REF) | payer MEDICARE ==
[2019-05-27 13:37] LABS: HEMATOCRIT 37.4 % (36.0-47.0); HEMOGLOBIN 11.7 g/dl (12.0-15.5); MEAN CORPUSCULAR HEMOGLOBIN 29.5 pg (27.0-33.0); MEAN CORPUSCULAR HGB CONC 31.3 g/dl (32.0-36.5); MEAN CORPUSCULAR VOLUME 94.2 fl (80.0-96.0); PLATELET COUNT, AUTOMATED 221 10^3/uL (150-450); RED BLOOD COUNT 3.97 10^6/uL (4.00-5.40); WHITE BLOOD COUNT 3.6 10^3/uL (4.0-10.0)
[2019-05-27 14:44] LABS: CALCIUM LEVEL 8.8 MG/DL (8.8-10.2); CREATININE FOR GFR 1.17 MG/DL (0.55-1.30); GLOMERULAR FILTRATION RATE 48.4 (>39); PHOSPHORUS LEVEL 3.9 MG/DL (2.5-4.9); POTASSIUM SERUM 3.9 MEQ/L (3.5-5.1); PREALBUMIN 23.3 MG/DL (20.0-40.0)
== END ==
LOC: M SHH 12:07
PROVIDERS: ATTEND Internal Medicine Gastroenterology
DX: E44.0 Moderate protein-calorie malnutrition (principal); K50.814 Crohn's disease of both small and large intestine with abscess

== ENCOUNTER → 2019-06-03 | Outpatient (REF) | payer MEDICARE ==
[2019-06-03 13:42] LABS: HEMATOCRIT 38.8 % (36.0-47.0); HEMOGLOBIN 11.9 g/dl (12.0-15.5); MEAN CORPUSCULAR HEMOGLOBIN 29.6 pg (27.0-33.0); MEAN CORPUSCULAR HGB CONC 30.7 g/dl (32.0-36.5); MEAN CORPUSCULAR VOLUME 96.5 fl (80.0-96.0); PLATELET COUNT, AUTOMATED 183 10^3/uL (150-450); RED BLOOD COUNT 4.02 10^6/uL (4.00-5.40)
[2019-06-03 14:02] LABS: ALBUMIN 2.7 GM/DL (3.2-5.2); BILIRUBIN,DIRECT 0.4 MG/DL (0.0-0.2); BILIRUBIN,TOTAL 0.8 MG/DL (0.2-1.0); CALCIUM LEVEL 8.7 MG/DL (8.8-10.2); CREATININE FOR GFR 1.05 MG/DL (0.55-1.30); FREE T4 1.44 NG/DL (0.76-1.46); GLOMERULAR FILTRATION RATE 54.8 (>39); MAGNESIUM LEVEL 2.1 MG/DL (1.8-2.4); PHOSPHORUS LEVEL 4.1 MG/DL (2.5-4.9); POTASSIUM SERUM 4.1 MEQ/L (3.5-5.1); PREALBUMIN 26.1 MG/DL (20.0-40.0); THYROID STIMULATING HORMONE 2.42 uIU/ML (0.358-3.740); TOTAL PROTEIN 6.3 GM/DL (6.4-8.2)
== END ==
LOC: M SHH 12:08
PROVIDERS: ATTEND Internal Medicine Gastroenterology
DX: E44.0 Moderate protein-calorie malnutrition (principal); K50.814 Crohn's disease of both small and large intestine with abscess

== ENCOUNTER → 2019-06-10 | Outpatient (REF) | payer MEDICARE ==
[2019-06-10 11:52] LABS: HEMATOCRIT 37.1 % (36.0-47.0); MEAN CORPUSCULAR HEMOGLOBIN 30.8 pg (27.0-33.0); MEAN CORPUSCULAR HGB CONC 32.3 g/dl (32.0-36.5); MEAN CORPUSCULAR VOLUME 95.4 fl (80.0-96.0); PLATELET COUNT, AUTOMATED 165 10^3/uL (150-450); RED BLOOD COUNT 3.89 10^6/uL (4.00-5.40); WHITE BLOOD COUNT 3.8 10^3/uL (4.0-10.0)
[2019-06-10 12:29] LABS: CREATININE FOR GFR 1.11 MG/DL (0.55-1.30); GLOMERULAR FILTRATION RATE 51.4 (>39); POTASSIUM SERUM 3.8 MEQ/L (3.5-5.1); PREALBUMIN 22.5 MG/DL (20.0-40.0)
== END ==
LOC: M SHH 10:52
PROVIDERS: ATTEND Internal Medicine Gastroenterology
DX: K50.018 Crohn's disease of small intestine with other complication (principal); E44.0 Moderate protein-calorie malnutrition

== ENCOUNTER → 2019-06-17 | Outpatient (REF) | payer MEDICARE ==
[2019-06-17 19:52] LABS: HEMATOCRIT 38.9 % (36.0-47.0); HEMOGLOBIN 12.3 g/dl (12.0-15.5); MEAN CORPUSCULAR HEMOGLOBIN 30.7 pg (27.0-33.0); MEAN CORPUSCULAR HGB CONC 31.6 g/dl (32.0-36.5); PLATELET COUNT, AUTOMATED 177 10^3/uL (150-450); RED BLOOD COUNT 4.01 10^6/uL (4.00-5.40); WHITE BLOOD COUNT 3.3 10^3/uL (4.0-10.0)
== END ==
LOC: M SHH 19:32
PROVIDERS: ATTEND Internal Medicine Gastroenterology
DX: E44.0 Moderate protein-calorie malnutrition (principal); K50.814 Crohn's disease of both small and large intestine with abscess

== ENCOUNTER → 2019-06-18 | Outpatient (REF) | payer MEDICARE ==
[2019-06-18 12:56] LABS: CALCIUM LEVEL 8.9 MG/DL (8.8-10.2); CREATININE FOR GFR 1.23 MG/DL (0.55-1.30); GLOMERULAR FILTRATION RATE 45.7 (>39); PHOSPHORUS LEVEL 4.1 MG/DL (2.5-4.9); POTASSIUM SERUM 4.2 MEQ/L (3.5-5.1)
== END ==
LOC: M SHH 12:01
PROVIDERS: ATTEND Internal Medicine Gastroenterology
DX: E44.0 Moderate protein-calorie malnutrition (principal); K50.018 Crohn's disease of small intestine with other complication

== ENCOUNTER → 2019-06-24 | Outpatient (REF) | payer MEDICARE ==
[2019-06-24 14:04] LABS: HEMATOCRIT 37.6 % (36.0-47.0); HEMOGLOBIN 12.2 g/dl (12.0-15.5); MEAN CORPUSCULAR HEMOGLOBIN 31.4 pg (27.0-33.0); MEAN CORPUSCULAR HGB CONC 32.4 g/dl (32.0-36.5); MEAN CORPUSCULAR VOLUME 96.7 fl (80.0-96.0); PLATELET COUNT, AUTOMATED 177 10^3/uL (150-450); RED BLOOD COUNT 3.89 10^6/uL (4.00-5.40); WHITE BLOOD COUNT 3.3 10^3/uL (4.0-10.0)
[2019-06-24 14:46] LABS: CALCIUM LEVEL 8.9 MG/DL (8.8-10.2); CREATININE FOR GFR 1.01 MG/DL (0.55-1.30); GLOMERULAR FILTRATION RATE 57.4 (>39); MAGNESIUM LEVEL 2.3 MG/DL (1.8-2.4); PHOSPHORUS LEVEL 4.5 MG/DL (2.5-4.9); POTASSIUM SERUM 4.3 MEQ/L (3.5-5.1); PREALBUMIN 24.7 MG/DL (20.0-40.0)
== END ==
LOC: M SHH 12:57
PROVIDERS: ATTEND Internal Medicine Gastroenterology
DX: E44.0 Moderate protein-calorie malnutrition (principal); K50.814 Crohn's disease of both small and large intestine with abscess

== ENCOUNTER → 2019-07-01 | Outpatient (REF) | payer MEDICARE ==
[2019-07-01 13:39] LABS: HEMATOCRIT 38.2 % (36.0-47.0); HEMOGLOBIN 12.3 g/dl (12.0-15.5); MEAN CORPUSCULAR HEMOGLOBIN 31.5 pg (27.0-33.0); MEAN CORPUSCULAR HGB CONC 32.2 g/dl (32.0-36.5); MEAN CORPUSCULAR VOLUME 97.7 fl (80.0-96.0); PLATELET COUNT, AUTOMATED 158 10^3/uL (150-450); RED BLOOD COUNT 3.91 10^6/uL (4.00-5.40); WHITE BLOOD COUNT 3.2 10^3/uL (4.0-10.0)
[2019-07-01 13:49] LABS: CALCIUM LEVEL 8.8 MG/DL (8.8-10.2); CREATININE FOR GFR 1.01 MG/DL (0.55-1.30); GLOMERULAR FILTRATION RATE 57.4 (>39); MAGNESIUM LEVEL 1.8 MG/DL (1.8-2.4); PHOSPHORUS LEVEL 3.6 MG/DL (2.5-4.9); POTASSIUM SERUM 3.9 MEQ/L (3.5-5.1); PREALBUMIN 21.6 MG/DL (20.0-40.0)
== END ==
LOC: M SHH 12:59
PROVIDERS: ATTEND Internal Medicine Gastroenterology
DX: K50.814 Crohn's disease of both small and large intestine with abscess (principal); E44.0 Moderate protein-calorie malnutrition

== ENCOUNTER → 2019-07-08 | Outpatient (REF) | payer MEDICARE ==
[2019-07-08 14:02] LABS: HEMATOCRIT 39.2 % (36.0-47.0); HEMOGLOBIN 12.5 g/dl (12.0-15.5); MEAN CORPUSCULAR HEMOGLOBIN 30.8 pg (27.0-33.0); MEAN CORPUSCULAR HGB CONC 31.9 g/dl (32.0-36.5); MEAN CORPUSCULAR VOLUME 96.6 fl (80.0-96.0); PLATELET COUNT, AUTOMATED 151 10^3/uL (150-450); RED BLOOD COUNT 4.06 10^6/uL (4.00-5.40); WHITE BLOOD COUNT 3.6 10^3/uL (4.0-10.0)
[2019-07-08 14:08] LABS: CALCIUM LEVEL 8.8 MG/DL (8.8-10.2); CREATININE FOR GFR 1.04 MG/DL (0.55-1.30); GLOMERULAR FILTRATION RATE 55.5 (>39); MAGNESIUM LEVEL 1.8 MG/DL (1.8-2.4); POTASSIUM SERUM 3.8 MEQ/L (3.5-5.1); PREALBUMIN 19.4 MG/DL (20.0-40.0)
== END ==
LOC: M SHH 13:18
PROVIDERS: ATTEND Internal Medicine Gastroenterology
DX: E44.0 Moderate protein-calorie malnutrition (principal); K50.814 Crohn's disease of both small and large intestine with abscess

== ENCOUNTER → 2019-07-15 | Outpatient (REF) | payer MEDICARE ==
[2019-07-15 12:01] LABS: HEMOGLOBIN 13.6 g/dl (12.0-15.5); MEAN CORPUSCULAR HEMOGLOBIN 31.2 pg (27.0-33.0); MEAN CORPUSCULAR HGB CONC 32.4 g/dl (32.0-36.5); MEAN CORPUSCULAR VOLUME 96.3 fl (80.0-96.0); PLATELET COUNT, AUTOMATED 181 10^3/uL (150-450); RED BLOOD COUNT 4.36 10^6/uL (4.00-5.40); WHITE BLOOD COUNT 3.3 10^3/uL (4.0-10.0)
[2019-07-15 12:26] LABS: CALCIUM LEVEL 8.8 MG/DL (8.8-10.2); CREATININE FOR GFR 1.15 MG/DL (0.55-1.30); GLOMERULAR FILTRATION RATE 49.4 (>39); MAGNESIUM LEVEL 2.1 MG/DL (1.8-2.4); PHOSPHORUS LEVEL 4.2 MG/DL (2.5-4.9); POTASSIUM SERUM 3.8 MEQ/L (3.5-5.1); PREALBUMIN 17.8 MG/DL (20.0-40.0)
== END ==
LOC: M SHH 11:32
PROVIDERS: ATTEND Internal Medicine Gastroenterology
DX: E44.0 Moderate protein-calorie malnutrition (principal); K50.814 Crohn's disease of both small and large intestine with abscess

== ENCOUNTER 2019-07-17 08:50 | Outpatient (CLI) | payer MEDICARE ==
[~2019-07-17] VITALS: Ht 154.9 cm; Wt 57.3 kg
[2019-07-17 09:07] VITALS: BP 170/84
[2019-07-17] MEDS ORDERED: SODIUM CHLORIDE 0.9% INJ 10 ML SYR IV PRN (09:15)
[2019-07-17] MEDS ORDERED: VEDOLIZUMAB 300 MG in NS 250 ML IV ONE (10:00)
[2019-07-17 10:20] VITALS: BP 162/72
[2019-07-17] MEDS ORDERED: SODIUM CHLORIDE 0.9% INJ 10 ML SYR IV SCH (18:00)
== END 2019-07-17 10:20 | disposition home or self-care (01) ==
LOC: M INFU 08:50
PROVIDERS: ATTEND Internal Medicine Gastroenterology
DX: K50.00 Crohn's disease of small intestine without complications (principal); Z88.2 Allergy status to sulfonamides; Z88.8 Allergy status to other drugs, medicaments and biological substances
CPT/HCPCS: 96365; J1642

== ENCOUNTER → 2019-07-22 | Outpatient (REF) | payer MEDICARE ==
[2019-07-22 13:19] LABS: HEMATOCRIT 41.5 % (36.0-47.0); HEMOGLOBIN 13.6 g/dl (12.0-15.5); MEAN CORPUSCULAR HEMOGLOBIN 31.3 pg (27.0-33.0); MEAN CORPUSCULAR HGB CONC 32.8 g/dl (32.0-36.5); MEAN CORPUSCULAR VOLUME 95.4 fl (80.0-96.0); PLATELET COUNT, AUTOMATED 175 10^3/uL (150-450); RED BLOOD COUNT 4.35 10^6/uL (4.00-5.40)
[2019-07-22 13:48] LABS: CALCIUM LEVEL 8.9 MG/DL (8.8-10.2); CREATININE FOR GFR 1.07 MG/DL (0.55-1.30); GLOMERULAR FILTRATION RATE 53.7 (>39); MAGNESIUM LEVEL 1.7 MG/DL (1.8-2.4); PHOSPHORUS LEVEL 4.2 MG/DL (2.5-4.9); PREALBUMIN 18.8 MG/DL (20.0-40.0)
== END ==
LOC: M SHH 12:48
PROVIDERS: ATTEND Internal Medicine Gastroenterology
DX: E44.0 Moderate protein-calorie malnutrition (principal); K50.814 Crohn's disease of both small and large intestine with abscess

== ENCOUNTER → 2019-07-29 | Outpatient (REF) | payer MEDICARE ==
[2019-07-29 12:49] LABS: HEMOGLOBIN 13.7 g/dl (12.0-15.5); MEAN CORPUSCULAR HEMOGLOBIN 31.4 pg (27.0-33.0); MEAN CORPUSCULAR HGB CONC 32.6 g/dl (32.0-36.5); MEAN CORPUSCULAR VOLUME 96.1 fl (80.0-96.0); PLATELET COUNT, AUTOMATED 179 10^3/uL (150-450); RED BLOOD COUNT 4.37 10^6/uL (4.00-5.40)
[2019-07-29 13:22] LABS: CREATININE FOR GFR 0.99 MG/DL (0.55-1.30); GLOMERULAR FILTRATION RATE 58.7 (>39); MAGNESIUM LEVEL 2.1 MG/DL (1.8-2.4); PHOSPHORUS LEVEL 4.1 MG/DL (2.5-4.9); POTASSIUM SERUM 3.8 MEQ/L (3.5-5.1); PREALBUMIN 19.9 MG/DL (20.0-40.0)
== END ==
LOC: M SHH 12:28
PROVIDERS: ATTEND Internal Medicine Gastroenterology
DX: E44.0 Moderate protein-calorie malnutrition (principal); K50.814 Crohn's disease of both small and large intestine with abscess; E27.40 Unspecified adrenocortical insufficiency; D50.9 Iron deficiency anemia, unspecified; N18.3 Chronic kidney disease, stage 3 (moderate)

== ENCOUNTER → 2019-07-29 | Outpatient (REF) | payer MEDICARE ==
[2019-07-29 12:50] LABS: BASO % 0.3 % (0.0-1.0); EOS # 0.1 10^3/uL (0.0-0.5); EOS % 3.6 % (0.0-3.0); HEMATOCRIT 41.8 % (36.0-47.0); HEMOGLOBIN 13.6 g/dl (12.0-15.5); LYMPH # 0.8 10^3/uL (1.5-5.0); LYMPH % 20.6 % (24.0-44.0); MEAN CORPUSCULAR HEMOGLOBIN 31.1 pg (27.0-33.0); MEAN CORPUSCULAR HGB CONC 32.5 g/dl (32.0-36.5); MEAN CORPUSCULAR VOLUME 95.4 fl (80.0-96.0); MONO # 0.4 10^3/uL (0.0-0.8); MONO % 10.4 % (0.0-5.0); NEUTROPHILS # 2.6 10^3/uL (1.5-8.5); NEUTROPHILS % 64.8 % (36.0-66.0); PLATELET COUNT, AUTOMATED 172 10^3/uL (150-450); RED BLOOD COUNT 4.38 10^6/uL (4.00-5.40); WHITE BLOOD COUNT 3.9 10^3/uL (4.0-10.0)
[2019-07-29 13:16] LABS: ALBUMIN 2.6 GM/DL (3.2-5.2); BLOOD UREA NITROGEN 28 MG/DL (7-18); CALCIUM LEVEL 8.7 MG/DL (8.8-10.2); CARBON DIOXIDE LEVEL 30 MEQ/L (21-32); CHLORIDE LEVEL 109 MEQ/L (98-107); CREATININE FOR GFR 0.96 MG/DL (0.55-1.30); GLOMERULAR FILTRATION RATE > 60.0 (>39); GLUCOSE, FASTING 75 MG/DL (70-100); MAGNESIUM LEVEL 2.1 MG/DL (1.8-2.4); PHOSPHORUS LEVEL 4.1 MG/DL (2.5-4.9); POTASSIUM SERUM 3.9 MEQ/L (3.5-5.1); SODIUM LEVEL 143 MEQ/L (136-145)
== END ==
LOC: M SHH 12:30
PROVIDERS: ATTEND Internal Medicine Nephrology
DX: E27.40 Unspecified adrenocortical insufficiency (principal); D50.9 Iron deficiency anemia, unspecified; N18.3 Chronic kidney disease, stage 3 (moderate)

== ENCOUNTER → 2019-07-30 | Outpatient (CLI) | payer MEDICARE | LOC: M LABSMTC 10:59 | PROVIDERS: ATTEND Family Medicine | DX: Z11.59 Encounter for screening for other viral diseases (principal); Z20.828 Contact with and (suspected) exposure to other viral communicable diseases ==

== ENCOUNTER → 2019-08-05 | Outpatient (REF) | payer MEDICARE ==
[~2019-08-05] MED LIST changes: -HYDR-4327 PO; +HYDR-4467 PO; +VITA-243 PO; -VITA500T PO
[2019-08-05 11:58] LABS: HEMATOCRIT 43.2 % (36.0-47.0); MEAN CORPUSCULAR HEMOGLOBIN 31.1 pg (27.0-33.0); MEAN CORPUSCULAR HGB CONC 32.4 g/dl (32.0-36.5); PLATELET COUNT, AUTOMATED 193 10^3/uL (150-450)
[2019-08-05 12:25] LABS: CALCIUM LEVEL 9.1 MG/DL (8.8-10.2); CREATININE FOR GFR 1.08 MG/DL (0.55-1.30); GLOMERULAR FILTRATION RATE 53.1 (>39); MAGNESIUM LEVEL 2.4 MG/DL (1.8-2.4); PHOSPHORUS LEVEL 4.2 MG/DL (2.5-4.9); POTASSIUM SERUM 3.7 MEQ/L (3.5-5.1); PREALBUMIN 20.2 MG/DL (20.0-40.0)
== END ==
LOC: M SHH 11:24
PROVIDERS: ATTEND Internal Medicine Gastroenterology
DX: E44.0 Moderate protein-calorie malnutrition (principal); K50.814 Crohn's disease of both small and large intestine with abscess

== ENCOUNTER → 2019-08-12 | Outpatient (REF) | payer MEDICARE ==
[2019-08-12 14:30] LABS: HEMATOCRIT 43.5 % (36.0-47.0); HEMOGLOBIN 13.9 g/dl (12.0-15.5); MEAN CORPUSCULAR VOLUME 97.1 fl (80.0-96.0); PLATELET COUNT, AUTOMATED 190 10^3/uL (150-450); RED BLOOD COUNT 4.48 10^6/uL (4.00-5.40); WHITE BLOOD COUNT 4.5 10^3/uL (4.0-10.0)
[2019-08-12 14:41] LABS: CALCIUM LEVEL 8.4 MG/DL (8.8-10.2); CREATININE FOR GFR 1.15 MG/DL (0.55-1.30); GLOMERULAR FILTRATION RATE 49.4 (>39); MAGNESIUM LEVEL 2.2 MG/DL (1.8-2.4); PHOSPHORUS LEVEL 4.3 MG/DL (2.5-4.9); PREALBUMIN 23.3 MG/DL (20.0-40.0)
== END ==
LOC: M SHH 13:36
PROVIDERS: ATTEND Internal Medicine Gastroenterology
DX: E44.0 Moderate protein-calorie malnutrition (principal); K50.814 Crohn's disease of both small and large intestine with abscess

== ENCOUNTER → 2019-08-19 | Outpatient (REF) | payer MEDICARE ==
[2019-08-19 15:16] LABS: HEMATOCRIT 43.5 % (36.0-47.0); HEMOGLOBIN 14.1 g/dl (12.0-15.5); MEAN CORPUSCULAR HGB CONC 32.4 g/dl (32.0-36.5); MEAN CORPUSCULAR VOLUME 95.6 fl (80.0-96.0); PLATELET COUNT, AUTOMATED 189 10^3/uL (150-450); RED BLOOD COUNT 4.55 10^6/uL (4.00-5.40); WHITE BLOOD COUNT 5.2 10^3/uL (4.0-10.0)
[2019-08-19 15:27] LABS: CALCIUM LEVEL 9.2 MG/DL (8.8-10.2); CREATININE FOR GFR 1.12 MG/DL (0.55-1.30); GLOMERULAR FILTRATION RATE 50.9 (>39); MAGNESIUM LEVEL 2.1 MG/DL (1.8-2.4); PHOSPHORUS LEVEL 4.5 MG/DL (2.5-4.9); POTASSIUM SERUM 4.2 MEQ/L (3.5-5.1); PREALBUMIN 24.5 MG/DL (20.0-40.0)
== END ==
LOC: M SHH 14:44
PROVIDERS: ATTEND Internal Medicine Gastroenterology
DX: E44.0 Moderate protein-calorie malnutrition (principal); K50.814 Crohn's disease of both small and large intestine with abscess

== ENCOUNTER → 2019-08-26 | Outpatient (REF) | payer MEDICARE ==
[2019-08-26 13:18] LABS: BASO % 0.3 % (0.0-1.0); EOS # 0.1 10^3/uL (0.0-0.5); HEMATOCRIT 40.9 % (36.0-47.0); HEMOGLOBIN 13.3 g/dl (12.0-15.5); LYMPH # 0.7 10^3/uL (1.5-5.0); LYMPH % 20.8 % (24.0-44.0); MEAN CORPUSCULAR HEMOGLOBIN 31.1 pg (27.0-33.0); MEAN CORPUSCULAR HGB CONC 32.5 g/dl (32.0-36.5); MEAN CORPUSCULAR VOLUME 95.6 fl (80.0-96.0); MONO # 0.3 10^3/uL (0.0-0.8); MONO % 8.7 % (0.0-5.0); NEUTROPHILS # 2.2 10^3/uL (1.5-8.5); NEUTROPHILS % 67.2 % (36.0-66.0); PLATELET COUNT, AUTOMATED 160 10^3/uL (150-450); RED BLOOD COUNT 4.28 10^6/uL (4.00-5.40); WHITE BLOOD COUNT 3.3 10^3/uL (4.0-10.0)
[2019-08-26 13:36] LABS: ALBUMIN 2.5 GM/DL (3.2-5.2); CALCIUM LEVEL 9.1 MG/DL (8.8-10.2); MAGNESIUM LEVEL 2.2 MG/DL (1.8-2.4); PHOSPHORUS LEVEL 4.3 MG/DL (2.5-4.9); POTASSIUM SERUM 4.1 MEQ/L (3.5-5.1)
== END ==
LOC: M SHH 12:51
PROVIDERS: ATTEND Internal Medicine Nephrology
DX: N18.3 Chronic kidney disease, stage 3 (moderate) (principal); D50.9 Iron deficiency anemia, unspecified; Z93.2 Ileostomy status

== ENCOUNTER → 2019-08-26 | Outpatient (REF) | payer MEDICARE ==
[2019-08-26 13:20] LABS: HEMATOCRIT 40.7 % (36.0-47.0); HEMOGLOBIN 13.6 g/dl (12.0-15.5); MEAN CORPUSCULAR HGB CONC 33.4 g/dl (32.0-36.5); MEAN CORPUSCULAR VOLUME 95.8 fl (80.0-96.0); PLATELET COUNT, AUTOMATED 156 10^3/uL (150-450); RED BLOOD COUNT 4.25 10^6/uL (4.00-5.40); WHITE BLOOD COUNT 3.4 10^3/uL (4.0-10.0)
[2019-08-26 13:41] LABS: CREATININE FOR GFR 1.01 MG/DL (0.55-1.30); GLOMERULAR FILTRATION RATE 57.4 (>39); MAGNESIUM LEVEL 2.2 MG/DL (1.8-2.4); PHOSPHORUS LEVEL 4.3 MG/DL (2.5-4.9); POTASSIUM SERUM 4.1 MEQ/L (3.5-5.1)
[2019-08-26 13:42] LABS: PREALBUMIN 23.3 MG/DL (20.0-40.0)
== END ==
LOC: M SHH 12:49
PROVIDERS: ATTEND Internal Medicine Gastroenterology
DX: E44.0 Moderate protein-calorie malnutrition (principal); K50.814 Crohn's disease of both small and large intestine with abscess; N18.3 Chronic kidney disease, stage 3 (moderate); D50.9 Iron deficiency anemia, unspecified; Z93.2 Ileostomy status

== ENCOUNTER → 2019-09-02 | Outpatient (REF) | payer MEDICARE ==
[~2019-09-02] MED LIST changes: +HYDR-4468 PO; -HYDR-4513 PO
[2019-09-02 11:19] LABS: HEMOGLOBIN 13.1 g/dl (12.0-15.5); MEAN CORPUSCULAR HEMOGLOBIN 32.2 pg (27.0-33.0); MEAN CORPUSCULAR HGB CONC 33.6 g/dl (32.0-36.5); MEAN CORPUSCULAR VOLUME 95.8 fl (80.0-96.0); PLATELET COUNT, AUTOMATED 175 10^3/uL (150-450); RED BLOOD COUNT 4.07 10^6/uL (4.00-5.40); WHITE BLOOD COUNT 3.9 10^3/uL (4.0-10.0)
[2019-09-02 11:49] LABS: CALCIUM LEVEL 8.2 MG/DL (8.8-10.2); CREATININE FOR GFR 1.04 MG/DL (0.55-1.30); GLOMERULAR FILTRATION RATE 55.5 (>39); MAGNESIUM LEVEL 2.3 MG/DL (1.8-2.4); PHOSPHORUS LEVEL 4.5 MG/DL (2.5-4.9); POTASSIUM SERUM 4.1 MEQ/L (3.5-5.1); PREALBUMIN 20.1 MG/DL (20.0-40.0)
[2019-09-09 00:06] LABS: ANTI-VEDOLIZUMAB ABY <25 ng/mL (.); VEDOLIZUMAB LEVEL 14 ug/mL (.)
== END ==
LOC: M SHH 10:52
PROVIDERS: ATTEND Internal Medicine Gastroenterology
DX: E44.0 Moderate protein-calorie malnutrition (principal); K50.814 Crohn's disease of both small and large intestine with abscess; K50.018 Crohn's disease of small intestine with other complication

== ENCOUNTER → 2019-09-18 | Outpatient (REF) | payer MEDICARE ==
[2019-09-18 14:09] LABS: HEMATOCRIT 39.3 % (36.0-47.0); HEMOGLOBIN 12.7 g/dl (12.0-15.5); MEAN CORPUSCULAR HEMOGLOBIN 31.9 pg (27.0-33.0); MEAN CORPUSCULAR HGB CONC 32.3 g/dl (32.0-36.5); MEAN CORPUSCULAR VOLUME 98.7 fl (80.0-96.0); PLATELET COUNT, AUTOMATED 165 10^3/uL (150-450); RED BLOOD COUNT 3.98 10^6/uL (4.00-5.40); WHITE BLOOD COUNT 4.9 10^3/uL (4.0-10.0)
[2019-09-18 14:40] LABS: CALCIUM LEVEL 8.6 MG/DL (8.8-10.2); CREATININE FOR GFR 1.23 MG/DL (0.55-1.30); GLOMERULAR FILTRATION RATE 45.7 (>39); MAGNESIUM LEVEL 2.1 MG/DL (1.8-2.4); PHOSPHORUS LEVEL 4.9 MG/DL (2.5-4.9); POTASSIUM SERUM 3.9 MEQ/L (3.5-5.1); PREALBUMIN 23.2 MG/DL (20.0-40.0)
== END ==
LOC: M SHH 13:37
PROVIDERS: ATTEND Internal Medicine Gastroenterology
DX: E44.0 Moderate protein-calorie malnutrition (principal); K50.814 Crohn's disease of both small and large intestine with abscess

== ENCOUNTER → 2019-09-19 | Outpatient (CLI) | payer MEDICARE ==
[~2019-09-19] MED LIST changes: +GASTROGRAFIN SOLUTION 30ML (Q9963) As Ordered ONE; +ISOVUE-370 76% 100ML VIAL As Ordered ONE; +PROHANCE 279.3MG/ML 5ML VIAL As Ordered ONE
--- NOTE | 2019-09-19 17:31 | REP ---
CT ABDOMEN AND PELVIS WITH ORAL AND IV CONTRAST, CT ABDOMEN WITHOUT IV CONTRAST: CT abdomen/pelvis performed following the administration of oral contrast and the intravenous administration of 100 mL of Isovue-370. In addition, pre-IV contrast images are obtained through the abdomen. Sagittal and coronal reconstruction images are performed. Comparison made with the prior CT of 01/19/2018. Reportedly, the patient has had resection of fistulas since that prior exam. The visualized lung bases demonstrate no infiltrate. There is a small hiatal hernia. No liver mass is seen. There is a gallstone in the gallbladder. Spleen is normal in size with no intrinsic abnormality. The adrenal glands are normal. No pancreatic abnormality is seen. No renal abnormality is seen. There is mild to moderate atherosclerotic calcification of the abdominal aorta without aneurysm. Subcentimeter periaortic lymph nodes are present without significant adenopathy. There is no free air or free fluid. Urinary bladder is very mildly distended with no gross abnormality. Cystic structure in the left uterus may represent a cyst. This measures 1.3 cm. An ileostomy is noted in the left lower abdominal wall. Multiple adjacent metallic clips are seen in the abdominal wall and mesentery, more so on the right. Streaky densities are seen throughout the mesentery of the lower abdomen predominantly in the right lower quadrant and in the central anterior pelvis. This probably represents postsurgical scarring. I do not see evidence of a fistula. No bowel obstruction is seen. IMPRESSION: Left lower quadrant ileostomy. There appears to be postsurgical scarring in the underlying abdominal wall and mesentery extending into the right lower quadrant. No fistula is seen. There is no bowel obstruction. There is no free air or free fluid. Gallstone is seen in the gallbladder. Electronically Signed by Brando Moss MD 09/20/2019 10:10 A
== END ==
LOC: M RAD 11:06
PROVIDERS: ATTEND Internal Medicine Gastroenterology
DX: K50.013 Crohn's disease of small intestine with fistula (principal); K44.9 Diaphragmatic hernia without obstruction or gangrene; I70.0 Atherosclerosis of aorta; Z93.2 Ileostomy status; K80.20 Calculus of gallbladder without cholecystitis without obstruction
CPT/HCPCS: 74178; A9576; J1642; Q9963; Q9967

== ENCOUNTER → 2019-09-23 | Outpatient (REF) | payer MEDICARE ==
[~2019-09-23] MED LIST changes: -GASTROGRAFIN SOLUTION 30ML (Q9963) As Ordered ONE; -ISOVUE-370 76% 100ML VIAL As Ordered ONE; -PROHANCE 279.3MG/ML 5ML VIAL As Ordered ONE
[2019-09-23 13:46] LABS: HEMATOCRIT 36.4 % (36.0-47.0); HEMOGLOBIN 12.1 g/dl (12.0-15.5); MEAN CORPUSCULAR HEMOGLOBIN 31.8 pg (27.0-33.0); MEAN CORPUSCULAR HGB CONC 33.2 g/dl (32.0-36.5); MEAN CORPUSCULAR VOLUME 95.8 fl (80.0-96.0); PLATELET COUNT, AUTOMATED 162 10^3/uL (150-450); WHITE BLOOD COUNT 4.7 10^3/uL (4.0-10.0)
[2019-09-23 14:28] LABS: BLOOD UREA NITROGEN 32 MG/DL (7-18); CALCIUM LEVEL 8.6 MG/DL (8.8-10.2); CARBON DIOXIDE LEVEL 24 MEQ/L (21-32); CHLORIDE LEVEL 107 MEQ/L (98-107); CREATININE FOR GFR 0.97 MG/DL (0.55-1.30); GLOMERULAR FILTRATION RATE > 60.0 (>39); GLUCOSE, FASTING 72 MG/DL (70-100); MAGNESIUM LEVEL 2.3 MG/DL (1.8-2.4); POTASSIUM SERUM 4.3 MEQ/L (3.5-5.1); PREALBUMIN 19.8 MG/DL (20.0-40.0); SODIUM LEVEL 140 MEQ/L (136-145)
== END ==
LOC: M SHH 13:37
PROVIDERS: ATTEND Internal Medicine Gastroenterology
DX: E44.0 Moderate protein-calorie malnutrition (principal); K50.814 Crohn's disease of both small and large intestine with abscess

== ENCOUNTER → 2019-09-30 | Outpatient (REF) | payer MEDICARE ==
[2019-09-30 12:51] LABS: HEMATOCRIT 37.3 % (36.0-47.0); HEMOGLOBIN 12.1 g/dl (12.0-15.5); MEAN CORPUSCULAR HEMOGLOBIN 31.4 pg (27.0-33.0); MEAN CORPUSCULAR HGB CONC 32.4 g/dl (32.0-36.5); MEAN CORPUSCULAR VOLUME 96.9 fl (80.0-96.0); PLATELET COUNT, AUTOMATED 172 10^3/uL (150-450); RED BLOOD COUNT 3.85 10^6/uL (4.00-5.40); WHITE BLOOD COUNT 4.7 10^3/uL (4.0-10.0)
[2019-09-30 13:25] LABS: CALCIUM LEVEL 8.8 MG/DL (8.8-10.2); CREATININE FOR GFR 1.04 MG/DL (0.55-1.30); GLOMERULAR FILTRATION RATE 55.5 (>39); MAGNESIUM LEVEL 2.2 MG/DL (1.8-2.4); PHOSPHORUS LEVEL 4.4 MG/DL (2.5-4.9); POTASSIUM SERUM 4.2 MEQ/L (3.5-5.1); PREALBUMIN 22.3 MG/DL (20.0-40.0)
== END ==
LOC: M SHH 11:50
PROVIDERS: ATTEND Internal Medicine Gastroenterology
DX: E44.0 Moderate protein-calorie malnutrition (principal); K50.814 Crohn's disease of both small and large intestine with abscess

== ENCOUNTER → 2019-10-04 | Outpatient (CLI) | payer MEDICARE ==
[~2019-10-04] MED LIST changes: +LIDOCAINE 1% MDV 20ML VIAL As Ordered ONE
[2019-10-04 14:48] VITALS: BP 140/70
--- NOTE | 2019-10-08 17:43 | REP ---
PICC LINE EXCHANGE The procedure was performed under the direct supervision of Dr. Moss. The risks and benefits of the procedure were explained to the patient and informed consent was obtained. The the patient arrived in the department with an existing PICC line inserted. The insertion site and catheter were prepped and draped in a sterile fashion. A 0.018 guidewire was inserted in the old catheter was removed. A 5.5 Nauruan dilator and peel-away sheath was inserted over the guide wire. A 5.5 Nauruan dual lumen catheter was cut to length of 36 cm. The dilator was removed and the catheter was inserted over the guide wire with the tip ending in the SVC. The peel-away sheath was removed and the catheter was flushed with heparinized saline as per Hospital protocol. The catheter was affixed to the skin and a sterile dressing was applied. The patient tolerated the procedure well and there were no immediate complications. After the appropriate amount of monitored convalescence the patient was discharged from the department. 1.8 minutes of fluoroscopy time was utilized for this procedure. Electronically Signed by KRISS Hartley 10/04/2019 03:09 P Electronically Signed by Brando Moss MD 10/08/2019 05:34 P
== END ==
LOC: M IRPRO 13:38
PROVIDERS: ATTEND Internal Medicine Gastroenterology
DX: K50.018 Crohn's disease of small intestine with other complication (principal); E44.0 Moderate protein-calorie malnutrition
CPT/HCPCS: 36578; 76937; C1751; J1642; J1644

== ENCOUNTER → 2019-10-07 | Outpatient (REF) | payer MEDICARE ==
[~2019-10-07] MED LIST changes: -LIDOCAINE 1% MDV 20ML VIAL As Ordered ONE
[2019-10-07 10:36] LABS: HEMATOCRIT 39.1 % (36.0-47.0); HEMOGLOBIN 12.9 g/dl (12.0-15.5); MEAN CORPUSCULAR HEMOGLOBIN 31.7 pg (27.0-33.0); MEAN CORPUSCULAR VOLUME 96.1 fl (80.0-96.0); PLATELET COUNT, AUTOMATED 182 10^3/uL (150-450); RED BLOOD COUNT 4.07 10^6/uL (4.00-5.40); WHITE BLOOD COUNT 5.1 10^3/uL (4.0-10.0)
[2019-10-07 12:37] LABS: CALCIUM LEVEL 8.9 MG/DL (8.8-10.2); CREATININE FOR GFR 1.17 MG/DL (0.55-1.30); GLOMERULAR FILTRATION RATE 48.4 (>39); MAGNESIUM LEVEL 2.3 MG/DL (1.8-2.4); PHOSPHORUS LEVEL 4.8 MG/DL (2.5-4.9); POTASSIUM SERUM 4.4 MEQ/L (3.5-5.1)
== END ==
LOC: M SHH 10:24
PROVIDERS: ATTEND Internal Medicine Gastroenterology
DX: E44.0 Moderate protein-calorie malnutrition (principal); K50.814 Crohn's disease of both small and large intestine with abscess

== ENCOUNTER → 2019-10-14 | Outpatient (REF) | payer MEDICARE ==
[2019-10-14 13:42] LABS: HEMATOCRIT 37.2 % (36.0-47.0); HEMOGLOBIN 12.5 g/dl (12.0-15.5); MEAN CORPUSCULAR HEMOGLOBIN 32.6 pg (27.0-33.0); MEAN CORPUSCULAR HGB CONC 33.6 g/dl (32.0-36.5); MEAN CORPUSCULAR VOLUME 97.1 fl (80.0-96.0); PLATELET COUNT, AUTOMATED 163 10^3/uL (150-450); RED BLOOD COUNT 3.83 10^6/uL (4.00-5.40); WHITE BLOOD COUNT 4.2 10^3/uL (4.0-10.0)
[2019-10-14 14:14] LABS: CALCIUM LEVEL 8.9 MG/DL (8.8-10.2); CREATININE FOR GFR 1.06 MG/DL (0.55-1.30); GLOMERULAR FILTRATION RATE 54.2 (>39); MAGNESIUM LEVEL 2.3 MG/DL (1.8-2.4); PHOSPHORUS LEVEL 4.2 MG/DL (2.5-4.9); PREALBUMIN 18.6 MG/DL (20.0-40.0)
== END ==
LOC: M SHH 12:59
PROVIDERS: ATTEND Internal Medicine Gastroenterology
DX: E44.0 Moderate protein-calorie malnutrition (principal); K50.814 Crohn's disease of both small and large intestine with abscess

== ENCOUNTER → 2019-10-21 | Outpatient (REF) | payer MEDICARE ==
[2019-10-21 12:49] LABS: HEMATOCRIT 37.7 % (36.0-47.0); HEMOGLOBIN 12.4 g/dl (12.0-15.5); MEAN CORPUSCULAR HEMOGLOBIN 31.6 pg (27.0-33.0); MEAN CORPUSCULAR HGB CONC 32.9 g/dl (32.0-36.5); MEAN CORPUSCULAR VOLUME 96.2 fl (80.0-96.0); PLATELET COUNT, AUTOMATED 222 10^3/uL (150-450); RED BLOOD COUNT 3.92 10^6/uL (4.00-5.40); WHITE BLOOD COUNT 4.4 10^3/uL (4.0-10.0)
[2019-10-21 13:44] LABS: CREATININE FOR GFR 1.04 MG/DL (0.55-1.30); GLOMERULAR FILTRATION RATE 55.5 (>39); MAGNESIUM LEVEL 2.3 MG/DL (1.8-2.4); PHOSPHORUS LEVEL 4.4 MG/DL (2.5-4.9); PREALBUMIN 27.4 MG/DL (20.0-40.0)
== END ==
LOC: M SHH 12:31
PROVIDERS: ATTEND Internal Medicine Gastroenterology
DX: E44.0 Moderate protein-calorie malnutrition (principal); K50.814 Crohn's disease of both small and large intestine with abscess

== ENCOUNTER → 2019-10-28 | Outpatient (REF) | payer MEDICARE ==
[~2019-10-28] MED LIST changes: +CALC-212 PO; -CALC600T7 PO; +CALCD50TA PO; +CEFD1CAP8 PO; +CEFD300CAP PO; +CEFT2ADD INJ; +CEFT2INJ4 IV; +D31000TA2 PO; +FERR325T16 PO; +IRON27TA2 PO; +LOMO2.5T PO; +LOSA50TA88 PO; +LR10IV IV; +PANT-23 PO; -PANT20TA2 PO; +PANT20TA6 PO; +[UNRECOGNIZED DRUG - CODE] PO; -[UNRECOGNIZED DRUG - CODE] PO
[2019-10-28 10:55] LABS: HEMATOCRIT 38.1 % (36.0-47.0); HEMOGLOBIN 12.5 g/dl (12.0-15.5); MEAN CORPUSCULAR HEMOGLOBIN 32.1 pg (27.0-33.0); MEAN CORPUSCULAR HGB CONC 32.8 g/dl (32.0-36.5); MEAN CORPUSCULAR VOLUME 97.7 fl (80.0-96.0); PLATELET COUNT, AUTOMATED 200 10^3/uL (150-450); WHITE BLOOD COUNT 4.6 10^3/uL (4.0-10.0)
[2019-10-28 11:47] LABS: CALCIUM LEVEL 9.2 MG/DL (8.8-10.2); CREATININE FOR GFR 1.13 MG/DL (0.55-1.30); GLOMERULAR FILTRATION RATE 50.4 (>39); MAGNESIUM LEVEL 2.4 MG/DL (1.8-2.4); PHOSPHORUS LEVEL 4.4 MG/DL (2.5-4.9); POTASSIUM SERUM 4.2 MEQ/L (3.5-5.1)
== END ==
LOC: M SHH 10:18
PROVIDERS: ATTEND Internal Medicine Gastroenterology
DX: E44.0 Moderate protein-calorie malnutrition (principal); K50.814 Crohn's disease of both small and large intestine with abscess

== ENCOUNTER → 2019-11-04 | Outpatient (REF) | payer MEDICARE ==
[~2019-11-04] MED LIST changes: -CALC-212 PO; +CALC600T7 PO; -CALCD50TA PO; -CEFD1CAP8 PO; -CEFD300CAP PO; -CEFT2ADD INJ; -CEFT2INJ4 IV; -D31000TA2 PO; -FERR325T16 PO; -IRON27TA2 PO; -LOMO2.5T PO; -LOSA50TA88 PO; -LR10IV IV; -PANT-23 PO; +PANT20TA2 PO; -PANT20TA6 PO; +[UNRECOGNIZED DRUG - CODE] PO; -[UNRECOGNIZED DRUG - CODE] PO
[2019-11-04 14:36] LABS: HEMATOCRIT 38.4 % (36.0-47.0); HEMOGLOBIN 12.4 g/dl (12.0-15.5); MEAN CORPUSCULAR HEMOGLOBIN 32.2 pg (27.0-33.0); MEAN CORPUSCULAR HGB CONC 32.3 g/dl (32.0-36.5); MEAN CORPUSCULAR VOLUME 99.7 fl (80.0-96.0); PLATELET COUNT, AUTOMATED 177 10^3/uL (150-450); RED BLOOD COUNT 3.85 10^6/uL (4.00-5.40); WHITE BLOOD COUNT 4.7 10^3/uL (4.0-10.0)
[2019-11-04 15:17] LABS: CALCIUM LEVEL 9.1 MG/DL (8.8-10.2); CREATININE FOR GFR 1.07 MG/DL (0.55-1.30); GLOMERULAR FILTRATION RATE 53.7 (>39); MAGNESIUM LEVEL 2.3 MG/DL (1.8-2.4); POTASSIUM SERUM 3.7 MEQ/L (3.5-5.1)
== END ==
LOC: M SHH 14:06
PROVIDERS: ATTEND Internal Medicine Gastroenterology
DX: E44.0 Moderate protein-calorie malnutrition (principal); K50.814 Crohn's disease of both small and large intestine with abscess; N18.3 Chronic kidney disease, stage 3 (moderate); Z93.2 Ileostomy status

== ENCOUNTER → 2019-11-04 | Outpatient (REF) | payer MEDICARE ==
[2019-11-04 14:31] LABS: BASO % 0.4 % (0.0-1.0); EOS # 0.1 10^3/uL (0.0-0.5); EOS % 1.5 % (0.0-3.0); HEMATOCRIT 38.5 % (36.0-47.0); HEMOGLOBIN 12.3 g/dl (12.0-15.5); LYMPH # 0.6 10^3/uL (1.5-5.0); LYMPH % 12.6 % (24.0-44.0); MEAN CORPUSCULAR HEMOGLOBIN 31.9 pg (27.0-33.0); MEAN CORPUSCULAR HGB CONC 31.9 g/dl (32.0-36.5); MEAN CORPUSCULAR VOLUME 99.7 fl (80.0-96.0); MONO # 0.3 10^3/uL (0.0-0.8); MONO % 6.4 % (0.0-5.0); NEUTROPHILS # 3.7 10^3/uL (1.5-8.5); NEUTROPHILS % 78.9 % (36.0-66.0); PLATELET COUNT, AUTOMATED 175 10^3/uL (150-450); RED BLOOD COUNT 3.86 10^6/uL (4.00-5.40); WHITE BLOOD COUNT 4.7 10^3/uL (4.0-10.0)
[2019-11-04 15:16] LABS: ALBUMIN 2.7 GM/DL (3.2-5.2); CALCIUM LEVEL 9.1 MG/DL (8.8-10.2); CREATININE FOR GFR 1.05 MG/DL (0.55-1.30); GLOMERULAR FILTRATION RATE 54.8 (>39); PHOSPHORUS LEVEL 4.1 MG/DL (2.5-4.9); POTASSIUM SERUM 3.8 MEQ/L (3.5-5.1); PTH INTACT 142.8 PG/ML (18.5-88.0)
== END ==
LOC: M SHH 14:09
PROVIDERS: ATTEND Internal Medicine Nephrology
DX: N18.3 Chronic kidney disease, stage 3 (moderate) (principal); Z93.2 Ileostomy status

== ENCOUNTER 2019-11-08 11:46 | Outpatient (CLI) | payer MEDICARE ==
[~2019-11-08] VITALS: Ht 154.9 cm; Wt 57.2 kg
[~2019-11-08 11:46] MED LIST changes: +CALC-212 PO; -CALC600T7 PO; -PANT20TA2 PO; +PANT20TA6 PO; +[UNRECOGNIZED DRUG - CODE] PO; -[UNRECOGNIZED DRUG - CODE] PO
[2019-11-08 11:55] VITALS: BP 155/70
[2019-11-08] MEDS ORDERED: VEDOLIZUMAB 300 MG in NS 250 ML IV ONE (12:15)
[2019-11-08] MEDS ORDERED: SODIUM CHLORIDE 0.9% INJ 10 ML SYR IV PRN (13:15)
[2019-11-08 13:28] VITALS: BP 140/65
[2019-11-08] MEDS ORDERED: SODIUM CHLORIDE 0.9% INJ 10 ML SYR IV SCH (18:00)
== END 2019-11-08 13:30 | disposition home or self-care (01) ==
LOC: M INFU 11:46
PROVIDERS: ATTEND Internal Medicine Gastroenterology
DX: K50.90 Crohn's disease, unspecified, without complications (principal)
CPT/HCPCS: 96365; J1642

== ENCOUNTER → 2019-11-11 | Outpatient (REF) | payer MEDICARE ==
[~2019-11-11] MED LIST changes: +CALCD50TA PO; +CEFD1CAP8 PO; +CEFD300CAP PO; +CEFT2ADD INJ; +CEFT2INJ4 IV; +D31000TA2 PO; +FERR325T16 PO; +IRON27TA2 PO; +LOMO2.5T PO; +LOSA50TA88 PO; +LR10IV IV; +PANT-23 PO
[2019-11-11 12:12] LABS: CALCIUM LEVEL 8.8 MG/DL (8.8-10.2); CREATININE FOR GFR 1.12 MG/DL (0.55-1.30); GLOMERULAR FILTRATION RATE 50.9 (>39); MAGNESIUM LEVEL 2.1 MG/DL (1.8-2.4); PHOSPHORUS LEVEL 4.2 MG/DL (2.5-4.9); POTASSIUM SERUM 4.1 MEQ/L (3.5-5.1); PREALBUMIN 26.3 MG/DL (20.0-40.0)
== END ==
LOC: M SHH 10:47
PROVIDERS: ATTEND Internal Medicine Gastroenterology
DX: E44.0 Moderate protein-calorie malnutrition (principal); K50.814 Crohn's disease of both small and large intestine with abscess

== ENCOUNTER → 2019-11-12 | Outpatient (REF) | payer MEDICARE ==
[2019-11-12 11:12] LABS: HEMATOCRIT 40.6 % (36.0-47.0); HEMOGLOBIN 13.3 g/dl (12.0-15.5); MEAN CORPUSCULAR HGB CONC 32.8 g/dl (32.0-36.5); MEAN CORPUSCULAR VOLUME 97.6 fl (80.0-96.0); PLATELET COUNT, AUTOMATED 196 10^3/uL (150-450); RED BLOOD COUNT 4.16 10^6/uL (4.00-5.40); WHITE BLOOD COUNT 3.7 10^3/uL (4.0-10.0)
== END ==
LOC: M SHH 10:51
PROVIDERS: ATTEND Internal Medicine Gastroenterology
DX: E44.0 Moderate protein-calorie malnutrition (principal); K50.814 Crohn's disease of both small and large intestine with abscess

== ENCOUNTER → 2019-11-18 | Outpatient (REF) | payer MEDICARE ==
[2019-12-13 21:43] LABS: HEMATOCRIT 39.1 % (36.0-47.0); HEMOGLOBIN 12.9 g/dl (12.0-15.5); MEAN CORPUSCULAR HEMOGLOBIN 32.4 pg (27.0-33.0); MEAN CORPUSCULAR VOLUME 98.2 fl (80.0-96.0); PLATELET COUNT, AUTOMATED 186 10^3/uL (150-450); RED BLOOD COUNT 3.98 10^6/uL (4.00-5.40); WHITE BLOOD COUNT 4.8 10^3/uL (4.0-10.0)
[2019-12-20 11:20] LABS: CALCIUM LEVEL 8.6 MG/DL (8.8-10.2); CREATININE FOR GFR 1.19 MG/DL (0.55-1.30); GLOMERULAR FILTRATION RATE 47.5 (>39); MAGNESIUM LEVEL 1.8 MG/DL (1.8-2.4); PHOSPHORUS LEVEL 4.6 MG/DL (2.5-4.9); POTASSIUM SERUM 3.8 MEQ/L (3.5-5.1); PREALBUMIN 28.1 MG/DL (20.0-40.0)
== END ==
LOC: M SHH 09:42 → M LAB REF 09:42
PROVIDERS: ATTEND Internal Medicine Gastroenterology
DX: E44.0 Moderate protein-calorie malnutrition (principal); K50.814 Crohn's disease of both small and large intestine with abscess

== ENCOUNTER → 2019-11-25 | Outpatient (REF) | payer MEDICARE ==
[2019-12-22 05:12] LABS: HEMATOCRIT 37.6 % (36.0-47.0); HEMOGLOBIN 12.4 g/dl (12.0-15.5); MEAN CORPUSCULAR HEMOGLOBIN 32.3 pg (27.0-33.0); MEAN CORPUSCULAR VOLUME 97.9 fl (80.0-96.0); PLATELET COUNT, AUTOMATED 188 10^3/uL (150-450); RED BLOOD COUNT 3.84 10^6/uL (4.00-5.40); WHITE BLOOD COUNT 4.2 10^3/uL (4.0-10.0)
[2020-01-04 20:59] LABS: CREATININE FOR GFR 1.27 MG/DL (0.55-1.30); MAGNESIUM LEVEL 2.2 MG/DL (1.8-2.4); PHOSPHORUS LEVEL 4.3 MG/DL (2.5-4.9); POTASSIUM SERUM 3.8 MEQ/L (3.5-5.1); PREALBUMIN 28.4 MG/DL (20.0-40.0)
== END ==
LOC: M SHH 09:14
PROVIDERS: ATTEND Internal Medicine Gastroenterology
DX: E44.0 Moderate protein-calorie malnutrition (principal); K50.814 Crohn's disease of both small and large intestine with abscess

== ENCOUNTER → 2019-12-02 | Outpatient (REF) | payer MEDICARE ==
[2020-01-03 11:38] LABS: HEMATOCRIT 37.4 % (36.0-47.0); HEMOGLOBIN 12.7 g/dl (12.0-15.5); MEAN CORPUSCULAR HEMOGLOBIN 32.6 pg (27.0-33.0); MEAN CORPUSCULAR VOLUME 96.1 fl (80.0-96.0); PLATELET COUNT, AUTOMATED 193 10^3/uL (150-450); RED BLOOD COUNT 3.89 10^6/uL (4.00-5.40)
[2020-01-15 14:35] LABS: CALCIUM LEVEL 9.1 MG/DL (8.8-10.2); CREATININE FOR GFR 1.64 MG/DL (0.55-1.30); GLOMERULAR FILTRATION RATE 32.8 (>39); MAGNESIUM LEVEL 2.7 MG/DL (1.8-2.4); PHOSPHORUS LEVEL 4.6 MG/DL (2.5-4.9); POTASSIUM SERUM 3.4 MEQ/L (3.5-5.1)
== END ==
LOC: M SHH 10:45
PROVIDERS: ATTEND Internal Medicine Gastroenterology
DX: E44.0 Moderate protein-calorie malnutrition (principal); K50.814 Crohn's disease of both small and large intestine with abscess

== ENCOUNTER → 2019-12-09 | Outpatient (REF) | payer MEDICARE ==
[2020-01-25 17:28] LABS: HEMATOCRIT 33.1 % (36.0-47.0); HEMOGLOBIN 10.9 g/dl (12.0-15.5); RED BLOOD COUNT 3.32 10^6/uL (4.00-5.40)
[2020-01-25 17:29] LABS: MEAN CORPUSCULAR HEMOGLOBIN 32.8 pg (27.0-33.0); MEAN CORPUSCULAR HGB CONC 32.9 g/dl (32.0-36.5); MEAN CORPUSCULAR VOLUME 99.7 fl (80.0-96.0); PLATELET COUNT, AUTOMATED 160 10^3/uL (150-450)
[2020-02-04 00:43] LABS: CALCIUM LEVEL 8.9 MG/DL (8.8-10.2); CREATININE FOR GFR 1.16 MG/DL (0.55-1.30); GLOMERULAR FILTRATION RATE 48.8 (>39); MAGNESIUM LEVEL 1.5 MG/DL (1.8-2.4); PHOSPHORUS LEVEL 3.6 MG/DL (2.5-4.9); POTASSIUM SERUM 3.8 MEQ/L (3.5-5.1); PREALBUMIN 24.8 MG/DL (20.0-40.0)
== END ==
LOC: M SHH 14:58
PROVIDERS: ATTEND Internal Medicine Gastroenterology
DX: E44.0 Moderate protein-calorie malnutrition (principal); K50.814 Crohn's disease of both small and large intestine with abscess

== ENCOUNTER → 2019-12-16 | Outpatient (REF) | payer MEDICARE ==
[2019-12-16 16:07] LABS: HEMATOCRIT 36.8 % (36.0-47.0); MEAN CORPUSCULAR HEMOGLOBIN 32.7 pg (27.0-33.0); MEAN CORPUSCULAR HGB CONC 32.6 g/dl (32.0-36.5); MEAN CORPUSCULAR VOLUME 100.3 fl (80.0-96.0); PLATELET COUNT, AUTOMATED 164 10^3/uL (150-450); RED BLOOD COUNT 3.67 10^6/uL (4.00-5.40); WHITE BLOOD COUNT 4.4 10^3/uL (4.0-10.0)
[2019-12-16 16:35] LABS: CREATININE FOR GFR 1.08 MG/DL (0.55-1.30); GLOMERULAR FILTRATION RATE 53.1 (>39); MAGNESIUM LEVEL 2.1 MG/DL (1.8-2.4); PHOSPHORUS LEVEL 3.9 MG/DL (2.5-4.9); POTASSIUM SERUM 3.5 MEQ/L (3.5-5.1); PREALBUMIN 18.3 MG/DL (20.0-40.0)
== END ==
LOC: M SHH 13:46
PROVIDERS: ATTEND Internal Medicine Gastroenterology
DX: E44.0 Moderate protein-calorie malnutrition (principal); K50.814 Crohn's disease of both small and large intestine with abscess

== ENCOUNTER → 2019-12-23 | Outpatient (REF) | payer MEDICARE ==
[2019-12-23 15:52] LABS: HEMATOCRIT 35.4 % (36.0-47.0); HEMOGLOBIN 11.6 g/dl (12.0-15.5); MEAN CORPUSCULAR HEMOGLOBIN 32.7 pg (27.0-33.0); MEAN CORPUSCULAR HGB CONC 32.8 g/dl (32.0-36.5); MEAN CORPUSCULAR VOLUME 99.7 fl (80.0-96.0); PLATELET COUNT, AUTOMATED 173 10^3/uL (150-450); RED BLOOD COUNT 3.55 10^6/uL (4.00-5.40); WHITE BLOOD COUNT 5.5 10^3/uL (4.0-10.0)
[2019-12-23 15:59] LABS: CALCIUM LEVEL 8.6 MG/DL (8.8-10.2); CREATININE FOR GFR 1.07 MG/DL (0.55-1.30); GLOMERULAR FILTRATION RATE 53.7 (>39); MAGNESIUM LEVEL 2.2 MG/DL (1.8-2.4); PHOSPHORUS LEVEL 4.3 MG/DL (2.5-4.9); POTASSIUM SERUM 4.2 MEQ/L (3.5-5.1); PREALBUMIN 20.3 MG/DL (20.0-40.0)
== END ==
LOC: M LAB REF 15:07 → M SHH 15:07
PROVIDERS: ATTEND Internal Medicine Gastroenterology
DX: K50.814 Crohn's disease of both small and large intestine with abscess (principal); E44.0 Moderate protein-calorie malnutrition

== ENCOUNTER 2019-12-31 13:03 | Emergency (ER) | payer MEDICARE ==
[~2019-12-31] VITALS: Ht 154.9 cm; Wt 59.7 kg
[~2019-12-31 13:03] MED LIST changes: -CALCD50TA PO; -CEFD1CAP8 PO; -CEFD300CAP PO; -CEFT2ADD INJ; -CEFT2INJ4 IV; -D31000TA2 PO; -FERR325T16 PO; -IRON27TA2 PO; -LOMO2.5T PO; -LOSA50TA88 PO; -LR10IV IV; -PANT-23 PO
[2019-12-31] MEDS ORDERED: HYDROCORTISONE 100 MG/2 ML VIAL (J1720 PER 1) IV ONE (14:45)
[2019-12-31] MEDS ORDERED: NS 1,000 ML IV ONE (14:45)
[2019-12-31 15:15] LABS: BASO % 0.2 % (0.0-1.0); EOS % 0.6 % (0.0-3.0); HEMATOCRIT 33.5 % (36.0-47.0); HEMOGLOBIN 11.5 g/dl (12.0-15.5); LYMPH # 0.7 10^3/uL (1.5-5.0); LYMPH % 14.9 % (24.0-44.0); MEAN CORPUSCULAR HEMOGLOBIN 32.5 pg (27.0-33.0); MEAN CORPUSCULAR HGB CONC 34.3 g/dl (32.0-36.5); MEAN CORPUSCULAR VOLUME 94.6 fl (80.0-96.0); MONO # 0.6 10^3/uL (0.0-0.8); MONO % 11.4 % (0.0-5.0); NEUTROPHILS # 3.5 10^3/uL (1.5-8.5); NEUTROPHILS % 72.5 % (36.0-66.0); PLATELET COUNT, AUTOMATED 151 10^3/uL (150-450); RED BLOOD COUNT 3.54 10^6/uL (4.00-5.40); WHITE BLOOD COUNT 4.8 10^3/uL (4.0-10.0)
[2019-12-31 15:45] LABS: ALBUMIN 2.3 GM/DL (3.2-5.2); ALT/SGPT 38 U/L (12-78); BILIRUBIN,TOTAL 2.8 MG/DL (0.2-1.0); BLOOD UREA NITROGEN 47 MG/DL (7-18); CALCIUM LEVEL 8.5 MG/DL (8.8-10.2); CARBON DIOXIDE LEVEL 24 MEQ/L (21-32); CHLORIDE LEVEL 104 MEQ/L (98-107); CK-MB VALUE MASS 2.9 NG/ML (<3.6); CPK CREATINE PHOSPHOKINASE 196 U/L (26-192); CREATININE FOR GFR 1.54 MG/DL (0.55-1.30); GLOMERULAR FILTRATION RATE 35.3 (>39); GLUCOSE, FASTING 81 MG/DL (70-100); MB/CK RELATIVE INDEX 1.48 (< OR =4); NT-PRO BNP 2069 PG/ML (<125); SODIUM LEVEL 137 MEQ/L (136-145); TOTAL PROTEIN 5.8 GM/DL (6.4-8.2); TROPONIN I < 0.02 NG/ML (< 0.10)
[2019-12-31] MEDS ORDERED: ISOVUE-370 76% 100ML VIAL As Ordered ONE (16:12)
--- NOTE | 2019-12-31 17:35 | REPVR ---
PROCEDURE INFORMATION: Exam: CT Angiography Chest With Contrast Exam date and time: 12/31/2019 4:58 PM Age: 74 years old Clinical indication: Other: Hypotension TECHNIQUE: Imaging protocol: Computed tomographic angiography of the chest with intravenous contrast. 3D rendering (Not supervised by radiologist): MIP reconstructed images were created by the technologist. Radiation optimization: All CT scans at this facility use at least one of these dose optimization techniques: automated exposure control; mA and/or kV adjustment per patient size (includes targeted exams where dose is matched to clinical indication); or iterative reconstruction. Contrast material: ISOVUE 370; Contrast volume: 100 ml; Contrast route: INTRAVENOUS (IV); COMPARISON: CT ANGIO CHEST 01/19/2018 1:48 AM FINDINGS: Tubes, catheters and devices: A right subclavian catheter is present with the tip in the lower SVC. Pulmonary arteries: Normal. No pulmonary emboli. Aorta: Ascending aortic ectasia measuring 3.8 cm. Mild aortic valvular calcification is present. Thyroid: Heterogeneous hypoattenuating goiter (10 Hounsfield units, previously 82 Hounsfield units). Lungs: A 3.1 mm noncalcified pulmonary nodule is noted in the superior posterior apical segment of the right upper lobe (LOC -58.75). Bilateral lower lobe mild endobronchial mucous plugging. Pleural space: No pneumothorax. No pleural effusion. Heart: Mitral annular calcification is present. Atherosclerotic calcifications are present involving the LAD coronary artery. Lymph nodes: Small triangular subpleural lymph node right lower lobe at the major fissure. Gallbladder and bile ducts: A single 12.2 mm gallstone is present dependently in the nondistended gallbladder. No wall thickening or pericholecystic fluid identified. Spleen: The spleen is enlarged measuring at least 13.6 cm longitudinally. Bones/joints: Diffuse osteopenia. Thoracic spine vertebral body marginal osteophytes are noted at multiple levels. Soft tissues: Unremarkable. IMPRESSION: 1. No pulmonary embolism identified. 2. No thoracic aortic aneurysm or dissection identified. 3. Bilateral lower lobe mild endobronchial mucous plugging. 4. Mild ascending aortic ectasia. 5. Cholelithiasis. 6. Heterogeneous thyroid goiter, interval change in density. Clinical correlation (thyroiditis?) is recommended. 7. Coronary atherosclerosis. 8. Noncalcified right upper lobe pulmonary nodule. igor Valentino al., Fleischner Society, 2017, recommendations are: ?For patients at low risk (minimal or absent history of smoking and of other known risk factors), no routine follow-up is indicated. For patients at high risk (history of smoking or of other known risk factors), consider optional CT at 12 months". The follow-up interval exceeds the recommendations, no additional follow-up required/recommended. 9. Splenomegaly. Electronically signed by: Neal Mckenzie On 12/31/2019 17:34:41 PM
--- NOTE | 2019-12-31 17:44 | REPVR ---
PROCEDURE INFORMATION: Exam: CT Abdomen And Pelvis With Contrast Exam date and time: 12/31/2019 4:58 PM Age: 74 years old Clinical indication: Abdominal pain; Additional info: Crohns, llq pain TECHNIQUE: Imaging protocol: Computed tomography of the abdomen and pelvis with intravenous contrast. Radiation optimization: All CT scans at this facility use at least one of these dose optimization techniques: automated exposure control; mA and/or kV adjustment per patient size (includes targeted exams where dose is matched to clinical indication); or iterative reconstruction. Contrast material: ISOVUE 370; Contrast volume: 100 ml; Contrast route: INTRAVENOUS (IV); COMPARISON: CT ABD PELVIS W/O FOL BY WIT 09/19/2019 2:54 PM FINDINGS: Liver: Geographic patchy hepatic hyperenhancing foci, notably in the inferior right lobe, likely representing transient arterial phase attenuation differences. Gallbladder and bile ducts: A single 11.4 mm gallstone is present dependently in the nondistended gallbladder. No wall thickening or pericholecystic fluid identified. Pancreas: Normal. No ductal dilation. Spleen: The spleen is enlarged measuring 14.1 cm transversely. A small medial splenule is present. Adrenals: Normal. No mass. Kidneys and ureters: Age related bilateral renal cortical atrophy. Stomach and bowel: Extensive previous small bowel resection. Previous total colectomy with abdomino-peroneal resection. Medial left upper pelvic anterior small bowel ostomy. Appendix: Previous total colectomy. Intraperitoneal space: Unremarkable. No free air. No significant fluid collection. Vasculature: Multiple moderate SMA stenoses. Severe SHASHA stenoses. Mild aortic atherosclerotic calcification without aneurysm. Lymph nodes: No enlarged lymph nodes. Bladder: Unremarkable as visualized. Reproductive: 10 mm hypoenhancing uterine leiomyoma. Bones/joints: Lumbar spine vertebral body marginal osteophytes are noted at multiple levels. Right lower lumbar facet primary osteoarthritis. No acute abnormality identified. No acute fracture. Soft tissues: Unremarkable. Other findings: No specific features of Crohn's disease, as visualized. IMPRESSION: 1. Cholelithiasis. 2. Splenomegaly. 3. Age related bilateral renal cortical atrophy. 4. Multiple moderate SMA stenoses. 5. Severe SHASHA stenoses. 6. Extensive previous small bowel resection. 7. Previous total colectomy with abdomino-peroneal resection. 8. Medial left upper pelvic anterior small bowel ostomy. 9. Small uterine leiomyoma. 10. Please see the CTA chest report of the same date for additional findings. Electronically signed by: Neal Mckenzie On 12/31/2019 17:44:00 PM
[2019-12-31] MEDS ORDERED: SODIUM CHLORIDE 0.9% INJ 10 ML SYR IV PRN (18:45)
[2019-12-31] MEDS ORDERED: cefTRIAXone SOD 1 GM in D5W MINI-BAG PLUS 50 ML IV ONE (19:00)
[2019-12-31] MEDS ORDERED: CEFD1CAP8 PO (19:23)
[2019-12-31 19:36] VITALS: BP 122/62
[2020-01-01] MEDS ORDERED: SODIUM CHLORIDE 0.9% INJ 10 ML SYR IV SCH (06:00)
[2020-01-01] MEDS ORDERED: IRON27TA2 PO (13:23)
[2020-01-01] MEDS ORDERED: PANT-23 PO (13:23)
[2020-01-01] MEDS ORDERED: LOMO2.5T PO (13:23)
[2020-01-01] MEDS ORDERED: LR10IV IV (13:23)
[2020-01-01] MEDS ORDERED: D31000TA2 PO (13:23)
--- NOTE | 2020-01-03 14:47 | ECGEPIP ---
[facility] - ED Test Date: 2019-12-31 Pat Name: ELIZA HUERTA Department: Room: - Gender: Female [employer]: randi : 1945 Requested By: AUDIE Bejarano Order Number: [id number] Reading MD: Juhi Hernandez Measurements Intervals [place] Rate: 86 P: 40 WA: 149 QRS: 4 QRSD: 95 T: 44 QT: 373 QTc: 449 Interpretive Statements SINUS RHYTHM WITH FREQUENT VENTRICULAR PREMATURE COMPLEXES ABNORMAL RHYTHM ECG NSTTW ABN SEE SCANNED DOWNTIME REPORT
== END 2019-12-31 19:30 | disposition home or self-care (01) ==
LOC: M ED 13:03
DX: E27.40 Unspecified adrenocortical insufficiency (principal); N39.0 Urinary tract infection, site not specified; I10 Essential (primary) hypertension; M10.9 Gout, unspecified; K21.9 Gastro-esophageal reflux disease without esophagitis; K50.90 Crohn's disease, unspecified, without complications; Z79.899 Other long term (current) drug therapy; Z88.1 Allergy status to other antibiotic agents; Z88.2 Allergy status to sulfonamides; Z88.8 Allergy status to other drugs, medicaments and biological substances
CPT/HCPCS: 71045; 71275; 74177; 80053; 81001; 82550; 82553; 83735; 83880; 84100; 84134; 84443; 84484; 85025; 85027; 87040; 87077; 87088; 87186; 93005; 96361; 96365; 96375; 99291; J0696; J1642; J1720; Q9967

== ENCOUNTER → 2019-12-31 | Outpatient (REF) | payer MEDICARE ==
[2019-12-31 15:39] LABS: HEMOGLOBIN 11.8 g/dl (12.0-15.5); MEAN CORPUSCULAR HEMOGLOBIN 32.6 pg (27.0-33.0); MEAN CORPUSCULAR HGB CONC 33.7 g/dl (32.0-36.5); MEAN CORPUSCULAR VOLUME 96.7 fl (80.0-96.0); PLATELET COUNT, AUTOMATED 163 10^3/uL (150-450); RED BLOOD COUNT 3.62 10^6/uL (4.00-5.40); WHITE BLOOD COUNT 5.1 10^3/uL (4.0-10.0)
[2019-12-31 16:06] LABS: CALCIUM LEVEL 8.4 MG/DL (8.8-10.2); CREATININE FOR GFR 1.36 MG/DL (0.55-1.30); GLOMERULAR FILTRATION RATE 40.7 (>39); MAGNESIUM LEVEL 2.2 MG/DL (1.8-2.4); PHOSPHORUS LEVEL 3.2 MG/DL (2.5-4.9); POTASSIUM SERUM 3.9 MEQ/L (3.5-5.1); PREALBUMIN 14.5 MG/DL (20.0-40.0)
== END ==
LOC: M SHH 09:00
PROVIDERS: ATTEND Internal Medicine Gastroenterology
DX: E44.0 Moderate protein-calorie malnutrition (principal); K50.814 Crohn's disease of both small and large intestine with abscess

== ENCOUNTER 2020-01-01 11:32 | Inpatient (IN) | payer MEDICARE ==
[~2020-01-01] VITALS: Ht 154.9 cm; Wt 60.5 kg
[~2020-01-01 11:32] MED LIST changes: +CEFD1CAP8 PO
[2020-01-01 12:28] LABS: BASO % 0.3 % (0.0-1.0); EOS % 0.3 % (0.0-3.0); HEMATOCRIT 35.4 % (36.0-47.0); HEMOGLOBIN 12.2 g/dl (12.0-15.5); LYMPH # 0.6 10^3/uL (1.5-5.0); LYMPH % 7.7 % (24.0-44.0); MEAN CORPUSCULAR HEMOGLOBIN 32.4 pg (27.0-33.0); MEAN CORPUSCULAR HGB CONC 34.5 g/dl (32.0-36.5); MEAN CORPUSCULAR VOLUME 93.9 fl (80.0-96.0); MONO # 0.7 10^3/uL (0.0-0.8); MONO % 9.3 % (0.0-5.0); NEUTROPHILS # 5.9 10^3/uL (1.5-8.5); NEUTROPHILS % 82.1 % (36.0-66.0); PLATELET COUNT, AUTOMATED 192 10^3/uL (150-450); RED BLOOD COUNT 3.77 10^6/uL (4.00-5.40); WHITE BLOOD COUNT 7.1 10^3/uL (4.0-10.0)
[2020-01-01] MEDS ORDERED: PIPERACILLIN/TAZOBACTAM SOD 3.375 GM in D5W MINI-BAG PLUS 50 ML IV ONE (12:30)
[2020-01-01 13:11] LABS: ALBUMIN 2.3 GM/DL (3.2-5.2); BILIRUBIN,TOTAL 1.7 MG/DL (0.2-1.0); CALCIUM LEVEL 8.6 MG/DL (8.8-10.2); CREATININE FOR GFR 1.46 MG/DL (0.55-1.30); GLOMERULAR FILTRATION RATE 37.5 (>39); POTASSIUM SERUM 5.5 MEQ/L (3.5-5.1); TOTAL PROTEIN 6.4 GM/DL (6.4-8.2)
[2020-01-01] MEDS ORDERED: D31000TA2 PO (13:23)
[2020-01-01] MEDS ORDERED: LOMO2.5T PO (13:23)
[2020-01-01] MEDS ORDERED: IRON27TA2 PO (13:23)
[2020-01-01] MEDS ORDERED: PANT-23 PO (13:23)
[2020-01-01] MEDS ORDERED: LR10IV IV (13:23)
[2020-01-01] MEDS ORDERED: NS 1,000 ML IV SCH (14:00)
[2020-01-01 16:15] VITALS: BP 119/52
[2020-01-01] MEDS: NS 1,000 ML IV SCH ×2 (16:50→18:07)
[2020-01-01] MEDS: PIPERACILLIN/TAZOBACTAM SOD 3.375 GM in D5W MINI-BAG PLUS 50 ML IV SCH (18:06)
[2020-01-01] MEDS: AMINO ACIDS IV SCH (21:00)
[2020-01-01] MEDS: DEXTROSE IV SCH (21:00)
[2020-01-01 22:00] VITALS: BP 117/54
[2020-01-01] MEDS: HYDROCORTISONE 10 MG TAB PO SCH (22:06)
[2020-01-02] MEDS: PIPERACILLIN/TAZOBACTAM SOD 3.375 GM in D5W MINI-BAG PLUS 50 ML IV SCH ×2 (01:20→06:14)
[2020-01-02] MEDS: LR 1,000 ML IV SCH ×4 (03:00→20:55)
[2020-01-02 06:00] VITALS: BP 117/69
[2020-01-02 06:07] LABS: BASO % 0.6 % (0.0-1.0); EOS % 1.1 % (0.0-3.0); HEMATOCRIT 32.4 % (36.0-47.0); HEMOGLOBIN 10.8 g/dl (12.0-15.5); LYMPH # 0.5 10^3/uL (1.5-5.0); LYMPH % 15.2 % (24.0-44.0); MEAN CORPUSCULAR HEMOGLOBIN 32.2 pg (27.0-33.0); MEAN CORPUSCULAR HGB CONC 33.3 g/dl (32.0-36.5); MEAN CORPUSCULAR VOLUME 96.7 fl (80.0-96.0); MONO # 0.4 10^3/uL (0.0-0.8); MONO % 10.6 % (0.0-5.0); NEUTROPHILS # 2.5 10^3/uL (1.5-8.5); NEUTROPHILS % 72.2 % (36.0-66.0); PLATELET COUNT, AUTOMATED 176 10^3/uL (150-450); RED BLOOD COUNT 3.35 10^6/uL (4.00-5.40); WHITE BLOOD COUNT 3.5 10^3/uL (4.0-10.0)
[2020-01-02] MEDS: SODIUM CHLORIDE 0.9% INJ 10 ML SYR IV SCH ×2 (06:14→16:55)
--- NOTE | 2020-01-02 06:17 | HPE ---
DATE OF ADMISSION: 01/01/2020 CHIEF COMPLAINT: Blood cultures with gram-negative rods. HISTORY OF PRESENT ILLNESS: A 74-year-old female with a history of Crohn's disease, on chronic total parenteral nutrition (TPN) via peripherally inserted central catheter (PICC) line was not feeling well for the past few days. Complained of weakness, back and neck pain without fever, and occasional chills, which she usually ascribes to her Crohn's disease. Home care called Dr. Olvera, who then saw her and encouraged her to go into the emergency room (ER) yesterday. In the ER, urinalysis (UA) was obtained. It showed a cloudy urine, 1+ protein, 2+ blood, negative nitrite, 1+ leukocyte esterase, 35 WBC but negative bacteria. Urine culture was obtained. Creatinine was 1.4. Patient was sent back home. Blood culture obtained yesterday grew out gram-negative rods. Patient was called at home and told to come into the hospital for admission for gram-negative bacteremia. Patient otherwise denies any dysuria, urgency, frequency. Denies any fever but has had chills for the past few days, which she ascribed to her Crohn's disease. She otherwise denies any chest pain, pressure, or tightness, cough, fever at home. Denies any abdominal pain, nausea, vomiting, diarrhea, or constipation. Hospitalist was asked to admit the patient for gram- negative bacteria from blood culture obtained on 12/31/2019, when the patient presented with neck and back pain and chills. Patient otherwise currently denies any new complaints overnight. CT abdomen and pelvis with contrast performed on 12/31/2019 had cholelithiasis, splenomegaly, bilateral renal cortical atrophy, multiple moderate superior mesenteric artery (SMA) stenosis, severe internal mesenteric artery (SHASHA) stenosis, extensive previous small-bowel resection, and previous total colectomy with abdominoperineal resection, mild left upper pelvic anterior small-bowel ostomy, small uterine leiomyoma. CT angiogram (CTA) chest with contrast showed no pulmonary embolism, no thoracic aortic aneurysm or dissection, bilateral lower lobe mild endobronchial mucous plugging, mild ascending aortic ectasis, cholelithiasis, thyroid goiter, interval change in density, questionable thyroiditis, coronary atherosclerosis, noncalcified right upper lobe pulmonary nodules, and splenomegaly, at least 13.6 cm longitudinally. MEDICAL HISTORY: 1. Splenomegaly. 2. Noncalcified right upper pulmonary nodule. 3. Multiple moderate SMA stenoses. 4. Bilateral renal cortical atrophy. 5. Severe SHASHA stenosis. 6. Previous bowel resection. 7. Total colectomy with abdominoperineal resection. 8. Small-bowel ostomy. 9. Uterine leiomyoma. 10. Cholelithiasis. 11. Iron deficiency anemia requiring blood transfusion. 12. Crohn's disease with gqrgtxm-gsehvhe-vpfwdso vaginal fistula, on chronic TPN with infection and abscesses. 13. Multiple fistulectomies. 14. Ileostomy revision. 15. B12 deficiency. 16. Hiatal hernia with gastroesophageal reflux disease. 17. Gout. 18. Hypertension. 19. Vitamin D deficiency. 20. Seronegative for rheumatoid arthritis. 21. Erosive osteoarthritis of the left hand. 22. Osteopenia. 23. Ulcerated pseudopolyp by colonoscopy 2007. 24. Fatty liver by CT in 2012. 25. Chronic cough. 26. Enterococcal bacteremia June 2015. 27. Adrenal insufficiency. 28. Admitted February with hypotension. 29. Hyponatremia. 30. Colostomy. 31. Cholestatic jaundice with liver biopsy in 2018, complicated by subcapsular bleed. 32. Right-sided Delgadillo catheter December 2017. 33. Delgadillo catheter removed March 2018. 34. Small pericardial effusion. Ejection fraction is 65% in 2019. 35. February 2019, enlarged thyroid pressing on the esophagitis. Thyroid ultrasound was normal with a 4 mm nodule. 36. Chronic kidney disease, stage III, followed by Dr. Lea, rehab director. ALLERGIES: COLAZAL, causing irritability. ENTOCORT, gastrointestinal (GI) upset. SULFACETAMIDE SODIUM, causing rash. LIALDA, nausea, vomiting, and diarrhea. PAST SURGICAL HISTORY: 1. Left knee surgery infection, removed in 2015. 2. Bowel resection and fistulectomy at [facility] in 2019. 3. Colonoscopy, Dr. Long, 2007. 4. Colonoscopy in 2004. 5. Exploratory laparoscopy, lysis of adhesions, take-down of duodenal colic fistula. 6. Right hemicolectomy. 7. Partial omentectomy. 8. Ileocolic anastomosis due to Crohn's, Dr. Koo, in 2010. 9. Chronic colitis with mild activity. 10. More reactive Crohn's in 2013. 11. Ileostomy in 2016. 12. Ileotomy repair in 2016. 13. Abscess drained out of the flank June 2015. 14. Drain inserted to abscess in the abdomen in 2016. 15. Colonoscopy through stoma 2016. HOME MEDICATIONS: - TPN via PICC line - vitamin D 2000 units every third day - cyanocobalamin 1000 mcg intramuscular every month - atropine - diphenoxylate one tablet four times a day as needed for diarrhea - hydrocortisone 10 mg twice a day - lactated Ringer's 1 liter IV daily - Protonix 40 daily - Calcium with vitamin D one tablet daily - ferrous gluconate 27 mg daily - oxycodone/acetaminophen 2.5/325 half a tablet every 6 as needed for pain - TPN daily - Entyvio 300 mg IV as directed SOCIAL HISTORY: Lives at home with her . Denies tobacco use, alcohol or drug use. FAMILY HISTORY: Father , coronary artery disease (CAD), myocardial infarction ([place]), hypertension. Mother , breast cancer. Brother of leukemia. Another brother of lung cancer. REVIEW OF SYSTEMS: Per history of present illness (HPI). A 12-point system otherwise negative. PHYSICAL EXAMINATION: Temperature 98.2, pulse 64, respiratory rate 22, blood pressure 110/59, 97% on room air. GENERAL: Patient is awake, alert, oriented to person, place, and time, answering questions appropriately. No jugular venous distention (JVD). No thyromegaly. No respiratory distress. No use of respiratory accessory muscles. Anicteric sclerae. No jaundice. No JVD or cervical lymphadenopathy. PICC line on the right upper extremity with no erythema, tenderness, or induration. Left hand has a peripheral line in the hand. LUNGS: Clear to auscultation. No wheezing, rales, or rhonchi. Air entry is equal bilaterally. No adventitious breath sounds. HEART: S1, S2, sinus rhythm. No murmurs, rubs, or gallops. ABDOMEN: Soft, nontender, nondistended. Positive bowel sounds. Multiple scars, well healed. EXTREMITIES: No cyanosis, clubbing, or any pitting edema. December 30 blood culture: Gram-negative rods, two sets. CT abdomen and pelvis: Multiple moderate SMA stenosis. Severe SHASHA stenosis. Cholelithiasis and splenomegaly, bilateral renal atrophy. Extensive previus small-bowel resection. Previous total colectomy with abdominoperineal resection Mild left upper pelvic anterior small-bowel ostomy. Small uterine leiomyoma. On 12/31/2019, CT chest with IV contrast: No pulmonary embolism. No thoracic aortic aneurysm or dissection identified. Bilateral lower lobe mild endobronchial mucous plugging. Mild ascending aortic ectasis. Cholelithiasis. Heterogenous thyroid goiter, interval change in density. Questionable thyroiditis. Coronary atherosclerosis. Noncalcified right upper lobe pulmonary nodule. Splenomegaly. ASSESSMENT AND PLAN: This is a 74-year-old female with a history of Crohn's disease with extensive surgical history who presented to the emergency room with complaints of malaise, neck and back pain, found to have bacteremia, which was gram-negative, and called in for IV antibiotics. IMPRESSION: 1. Gram-negative bacteria. 2. History of Crohn's disease, on chronic TPN. 3. Iron deficiency anemia. 4. Multiple stenoses in the SMA. 5. Cholelithiasis. 6. Splenomegaly. 7. Noncalcified right upper pulmonary module. 8. Failure to thrive secondary to Crohn's disease, requiring TPN via PICC line. 9. small uterine leiomyoma. PLAN: Patient will be admitted to the medical floor, started on IV Zosyn. Await identification of patient's bacteria. Tailor antibiotics accordingly and check for the source. Await urinalysis (UA), culture and sensitivity. Resume home medications. Patient will need outpatient referral to vascular surgery regarding the multiple SMA stenoses. She currently has no complaints of abdominal pain or recent weight loss. Patient had gained abut 3 pounds since she has been on TPN, and appetite has been unchanged. Deep venous thrombosis (DVT) prophylaxis with compression stockings. Lovenox injection once daily. MTDD
[2020-01-02 06:30] LABS: ERYTHROCYTE SEDIMENTATION RATE 67 mm/hr (0-30)
[2020-01-02 08:40] VITALS: BP 114/59
[2020-01-02] MEDS: PANTOPRAZOLE 40MG TAB (PROTONIX) PO SCH (08:46)
[2020-01-02] MEDS: HYDROCORTISONE 10 MG TAB PO SCH ×2 (08:46→20:55)
[2020-01-02] MEDS ORDERED: LACTATED RINGER'S 1000 ML IV SCH (09:00)
[2020-01-02 11:06] LABS: CALCIUM LEVEL 8.8 MG/DL (8.8-10.2); CREATININE FOR GFR 1.35 MG/DL (0.55-1.30); POTASSIUM SERUM 3.8 MEQ/L (3.5-5.1)
[2020-01-02] MEDS ORDERED: NS 1,000 ML IV ONE (12:00)
--- NOTE | 2020-01-02 13:58 | IPNPDOC ---
Date Seen The patient was seen on 01/02/20. Progress Note SUBJECTIVE: no fever chills, dysuria, urgency, frequency, n/v/abd pain, cough, sob. overnight, pt adamant about using her own tpn, but [facility] [place] staff unable to assist, and pt's insurance will not cover inpt use of her home TPN. awaiting blood cx results on iv zosyn, transitioned to iv cefazolin according to urine cx : ecoli sensitive to cefazolin. OBJECTIVE: PHYSICAL EXAMINATION: VITALS: SEE BELOW GENERAL: Patient is awake, alert, oriented to person, place, and time, answering questions appropriately. speech is fluent. No jugular venous distention (JVD). No thyromegaly. Norespiratory distress. No use of respiratory accessory muscles. Anicteric sclerae. No jaundice. No JVD or cervical lymphadenopathy. PICC line on the rightupper extremity with no erythema, tenderness, or induration. Left hand has a peripheral line in the hand. LUNGS: Clear to auscultation. No wheezing, rales, or rhonchi. Air entry is equalbilaterally. No adventitious breath sounds. HEART: S1, S2, sinus rhythm. No murmurs, rubs, or gallops. ABDOMEN: Soft, nontender, nondistended. Positive bowel sounds. Multiple scars, well healed. no HSM no abd burit EXTREMITIES: No cyanosis, clubbing, or any pitting edema. December 30 blood culture: Gram-negative rods, two sets. urine cx: E coli sens to levaquin and iv cefazolin CT abdomen and pelvis: Multiple moderate SMA stenosis. Severe SHASHA stenosis. Cholelithiasis and splenomegaly, bilateral renal atrophy. Extensive previus small-bowel resection. Previous total colectomy with abdominoperineal resection Mild left upper pelvic anterior small-bowel ostomy. Small uterine leiomyoma. On 12/31/2019, CT chest with IV contrast: No pulmonary embolism. No thoracic aortic aneurysm or dissection identified. Bilateral lower lobe mild endobronchial mucous plugging. Mild ascending aortic ectasis. Cholelithiasis. Heterogenous thyroid goiter, interval change in density. Questionable thyroiditis. Coronary atherosclerosis. Noncalcified right upper lobe pulmonary nodule. Splenomegaly. ASSESSMENT AND PLAN: This is a 74-year-old female with a history of Crohn's disease with extensive surgical history who presented to the emergency room withcomplaints of malaise, neck and back pain, found to have bacteremia, which was gram-negative, and called in for IV antibiotics. IMPRESSION: 1. Gram-negative bacteria. 2. History of Crohn's disease, on chronic TPN. 3. Iron deficiency anemia. 4. Multiple stenoses in the SMA. 5. Cholelithiasis. 6. Splenomegaly. 7. Noncalcified right upper pulmonary module. 8. Failure to thrive secondary to Crohn's disease, requiring TPN via PICC line. 9. small uterine leiomyoma. 10.UTI Ecoli sensitive to levaquin and cefazolin PLAN: s/p zosyn, now on iv cefazolin. if blood cx shows Ecoli, may dc home on po levaquin. transient bacteremia from uti. afebrile, and clinically stable. PFS and RN service transformer repair supervisor to explain to pt why her home TPN cannot be used as an inpt. Director Of Solutions Architecture consulted for inpt recommendations. may dc home as soon as blood cx available. PT/OT. resume all home meds. VS, I&O, 24H, Fishbone Vital Signs/I&O Vital Signs Date Time Temp Pulse Resp B/P (MAP) Pulse Ox O2 Delivery O2 Flow Rate FiO2 01/02/20 08:40 99.0 96 20 114/59 (77) 100 Room Air I&O- Last 24 Hours up to 6 AM 01/02/20 06:00 Intake Total 3600 ml Output Total 1550 ml Balance 2050 ml Laboratory Data 24H LABS Laboratory Tests 2 01/02/20 05:35: Immature Granulocyte % (Auto) 0.3, Neutrophils (%) (Auto) 72.2H, Lymphocytes (%) (Auto) 15.2L, Monocytes (%) (Auto) 10.6H, Eosinophils (%) (Auto) 1.1, Basophils (%) (Auto) 0.6, Neutrophils # (Auto) 2.5, Lymphocytes # (Auto) 0.5L, Monocytes # (Auto) 0.4, Eosinophils # (Auto) 0.0, Basophils # (Auto) 0.0, Nucleated Red Blood Cells % (auto) 0.0, Erythrocyte Sedimentation Rate 67H, Prealbumin 13.7L 01/02/20 10:28: Anion Gap 7L, Glomerular Filtration Rate 41.0, Calcium Level 8.8 01/02/20 11:21: Urine Color MURPHY, Urine Appearance HAZY, Urine pH 5.0, Urine Specific Wells 1.035, Urine Protein 1+H, Urine Glucose (UA) NEGATIVE, Urine Ketones NEGATIVE, Urine Blood 1+H, Urine Nitrite NEGATIVE, Urine Bilirubin NEGATIVE, Urine Urobilinogen 0.2, Urine Leukocyte Esterase NEGATIVE, Urine WBC (Auto) 10H, Urine RBC (Auto) 6H, Urine Hyaline Casts (Auto) 0, Urine Bacteria (Auto) NEGATIVE, Urine Squamous Epithelial Cells 0, Urine Mucus (Auto) SMALL, Urine Sperm (Auto) CBC/BMP Laboratory Tests 01/02/20 05:35 01/02/20 10:28 Microbiology Microbiology 01/02/20 Blood Culture, Received Pending 01/02/20 Blood Culture, Received Pending 01/01/20 Blood Culture - Preliminary, Resulted No growth after 24 hours . All specim... 01/01/20 Blood Culture - Preliminary, Resulted No growth after 24 hours . All specim... LETHA PYLE MD Jan 02, 2020 13:50
[2020-01-02 14:00] VITALS: BP 119/68
[2020-01-02] MEDS ORDERED: ceFAZolin SOD 2 GM in IV 1 EA IV SCH (14:00)
[2020-01-02] MEDS: ceFAZolin SOD 1 GM in D5W MINI-BAG PLUS 50 ML IV SCH (14:24)
[2020-01-02] MEDS: SODIUM CHLORIDE 0.9% INJ 10 ML SYR IV PRN (16:02)
[2020-01-02] MEDS: DEXTROSE IV SCH (21:00)
[2020-01-02] MEDS: AMINO ACIDS IV SCH (21:00)
[2020-01-02] MEDS: LOMOTIL 2.5MG/0.025MG TABLET PO PRN (21:02)
[2020-01-02 22:00] VITALS: BP 120/66
[2020-01-03] MEDS: ceFAZolin SOD 1 GM in D5W MINI-BAG PLUS 50 ML IV SCH (02:14)
[2020-01-03] MEDS: LR 1,000 ML IV SCH ×2 (02:26→08:15)
[2020-01-03] MEDS: SODIUM CHLORIDE 0.9% INJ 10 ML SYR IV PRN (03:21)
[2020-01-03 04:00] VITALS: BP 120/66
[2020-01-03 06:00] VITALS: BP 124/69
[2020-01-03] MEDS: SODIUM CHLORIDE 0.9% INJ 10 ML SYR IV SCH (06:08)
[2020-01-03 06:47] LABS: BASO % 0.6 % (0.0-1.0); EOS # 0.1 10^3/uL (0.0-0.5); EOS % 2.3 % (0.0-3.0); HEMATOCRIT 36.5 % (36.0-47.0); LYMPH # 0.7 10^3/uL (1.5-5.0); MEAN CORPUSCULAR HEMOGLOBIN 32.1 pg (27.0-33.0); MEAN CORPUSCULAR HGB CONC 32.9 g/dl (32.0-36.5); MEAN CORPUSCULAR VOLUME 97.6 fl (80.0-96.0); MONO # 0.4 10^3/uL (0.0-0.8); NEUTROPHILS # 2.2 10^3/uL (1.5-8.5); NEUTROPHILS % 64.5 % (36.0-66.0); PLATELET COUNT, AUTOMATED 199 10^3/uL (150-450); RED BLOOD COUNT 3.74 10^6/uL (4.00-5.40); WHITE BLOOD COUNT 3.5 10^3/uL (4.0-10.0)
[2020-01-03 08:09] LABS: CALCIUM LEVEL 8.8 MG/DL (8.8-10.2); CREATININE FOR GFR 1.14 MG/DL (0.55-1.30); GLOMERULAR FILTRATION RATE 49.9 (>39)
[2020-01-03] MEDS: HYDROCORTISONE 10 MG TAB PO SCH (09:30)
[2020-01-03] MEDS: PANTOPRAZOLE 40MG TAB (PROTONIX) PO SCH (09:30)
[2020-01-03] MEDS: LOMOTIL 2.5MG/0.025MG TABLET PO PRN (09:30)
[2020-01-03] MEDS ORDERED: CEFT2INJ4 IV (12:33)
[2020-01-03] MEDS ORDERED: ACETAMINOPHEN 500 MG TAB PO ONE (13:00)
[2020-01-03] MEDS ORDERED: cefTRIAXone SOD 2 GM in D5W MINI-BAG PLUS 50 ML IV ONE (14:00)
--- NOTE | 2020-01-05 07:24 | CR ---
DATE OF CONSULTATION: 01/03/2020 REASON FOR CONSULTATION: Klebsiella bacteremia, peripherally inserted central catheter (PICC) line infection. HISTORY OF PRESENT ILLNESS: Ms. Etienne is a 74-year-old female with an extensive medical history, including Crohn's disease with a diverting ileostomy on chronic total parenteral nutrition via a peripherally inserted central catheter line. The patient had stated that she was not feeling well for the past few days. Her complaint was back pain, neck pain, and general fatigue. She states that she had occasional chills, however, states that this is not abnormal for her. Additionally, the patient stated that she did not have any documented fever that she was aware of. The patient had stated that she had called her primary care physician's office, Dr. Olvera, with recommendations for her to go to the emergency room. At the emergency room, at the time the patient had received a urinalysis, which was suggestive of possible urinary tract infection (UTI). A urine culture was obtained and the patient was given a dose of Rocephin. Additionally, the patient had blood cultures obtained and was subsequently discharged from the emergency room (ER). The following day, however, the patient's blood cultures both showed positive for gram-negative rods in two out of two blood cultures that were performed peripherally. These resulted in Klebsiella pneumoniae. The patient was subsequently called and instructed to return to the hospital for admission and intravenous (IV) antibiotics. On readmission, she had received a dose of Zosyn and started on cefazolin once culture demonstrated klebsiella. On repeat blood cultures in the hospital, on December 31 and January 01, there was no growth of bacteria. Patient has remained afebrile and currently has no complaints. Patient does state that she has a history of a line infection, previously in 2018 when she had a Delgadillo catheter placed for her total parental nutrition (TPN). She stated that that was removed and subsequently has had PICC lines placed and exchanged every 6 months to year. She states that there is no pain in her arm where her PICC line is and no associated redness or discharge from the IV site. Patient states that she is cared for by [facility] nurses, who come and help her with her TPN. MEDICAL HISTORY: 1. Crohn's disease, status post colectomy. 2. Noncalcified right upper pulmonary nodule. 3. Moderate superior mesenteric artery stenosis. 4. Bilateral renal cortical atrophy. 5. Severe inferior mesenteric artery stenosis. 6. Cholelithiasis. 7. Iron deficiency anemia, requiring blood transfusion. 8. Enteric-enteric vesicovaginal fistulas, on chronic TPN. 9. B12 deficiency. 10. Hiatal hernia. 11. Gout. 12. Hypertension. 13. Vitamin D deficiency. 14. Seronegative rheumatoid arthritis. 15. Erosive osteoarthritis. 16. Osteopenia. 17. Enterococcal bacteremia in June 2015. 18. Adrenal insufficiency. 19. Hyponatremia. 20. Chronic kidney disease, stage III, followed by nephrology. SURGICAL HISTORY: 1. Left knee surgery, resulting in infection with removal of hardware in 2016. 2. Bowel resection and fistulectomy at [facility] in 2018. 3. Colonoscopy by Dr. Long in 2007. 4. Colonoscopy in 2004. 5. Exploratory laparoscopy with lysis of adhesions and take-down of duodenocolic fistula. 6. Right hemicolectomy. 7. Partial omentectomy. 8. Ileocolic anastomosis due to Crohn's performed by Dr. Koo in 2010. 9. Chronic colitis. 10. Ileostomy in 2015. 11. Ileotomy repair in 2015. 12. Abscess drainage out of the flank in June 2015. 13. Colonoscopy through her stoma in 2015. INPATIENT ANTIBIOTICS: Cefazolin 2 grams every 8 hours IV. SOCIAL HISTORY: Patient lives at home with her . She denies any tobacco, alcohol, or drug use. FAMILY HISTORY: Patient's father is from coronary artery disease. He also had hypertension. Her mother is from breast cancer. Her brother from leukemia, and her other brother from lung cancer, likely associated with smoking. REVIEW OF SYSTEMS: CONSTITUTIONAL: Patient denies any fevers. She admits to occasional chills. She denies any unintentional weight loss or weight gain. HEENT: Patient denies any dysphagia. She denies any migraines. She denies any changes in her vision. She does admit to neck pain. She denies any odynophagia. CARDIOVASCULAR: Patient denies any chest pain, palpitations, or feelings of her heart racing. She denies any leg swelling. PULMONARY: Patient denies any shortness of breath. She denies any wheezing, cough, or sputum production. ABDOMEN: Patient denies any abdominal pain. She denies any dysuria or increased frequency or urgency. EXTREMITIES: Patient denies any swelling. She denies any pain in her calves. MUSCULOSKELETAL: Patient admits to upper neck and back pain, mostly located on the left side. HEMATOLOGIC/LYMPHATIC: Patient denies any easy bruising or bleeding. She denies any history of deep venous thrombosis (DVT) or pulmonary embolus (PE). ENDOCRINE: Patient denies any heat intolerance or cold intolerance. PHYSICAL EXAMINATION: VITAL SIGNS: Temperature 98.5, pulse 76, respiratory rate 17, blood pressure 124/69, pulse oximetry 99% on room air. GENERAL: Patient is awake, alert, oriented. She does not appear in any acute distress. She is lying comfortably in bed. She is conversive. HEENT: Atraumatic, normocephalic. Eyes anicteric. Trachea is midline. Mucous membranes are pink and moist. CARDIOVASCULAR: There is a normal S1, S2, regular rate and rhythm. No clicks, rubs, or murmurs. PULMONARY: Patient has clear vesicular breath sounds bilaterally. Good respiratory effort. No wheezes, rhonchi, or rales. Symmetric chest expansion. ABDOMEN: Soft, nontender, nondistended. There is positive bowel sounds. She has a left ileostomy. Bag has some loose stool in it. There is a fistula apparent. The site of her ostomy bag appears clear. EXTREMITIES: No edema. Full and equal pulses bilaterally, upper and lower extremities. LABORATORY DATA: Hematology: White blood cells 3.5, hemoglobin 12.0, hematocrit 36.5, platelet count 199. Chemistries: Sodium 145, potassium 4.0, chloride 115, carbon dioxide 25, BUN 23, creatinine 1.14, fasting glucose 72. Calcium 8.8. Microbiology: Blood cultures from 12/31/2019 demonstrating klebsiella with sensitivity to cefazolin and ceftriaxone times two. Peripheral blood cultures from December 31 and January 01 negative for any growth. ASSESSMENT AND PLAN: Gram-negative bacteremia, likely secondary to PICC line infection. Patient had presented with gram-negative bacteria, cultured as Klebsiella pneumoniae. She had received a dose of ceftriaxone originally when she first presented to the ER for blood cultures. On return to the hospital after result of blood cultures, her repeat blood cultures were negative for any growth. She had been given a dose of Zosyn; however, once the cause of her organism was identified, she was de-escalated to cefazolin 2 grams IV, which was continued. Today, the patient is feeling well and would like to be discharged home. She does have home healthcare nurses who come and administer her TPN for her. Given her gram-negative bacteremia with klebsiella, will give her a 2-gram dose of Rocephin today before she leaves, and then she will receive 2 grams IV daily for 12 days to complete treatment. At the end of her treatment on January 19, the patient will receive repeat blood cultures to ensure negative infection. Her antibiotics should be continued to be administered through her PICC line. The patient does not need to followup with infectious disease outpatient. She can followup with her primary care physician, Dr. Olvera. KIZZY
--- NOTE | 2020-01-21 12:12 | DSES ---
DATE OF ADMISSION: 01/01/2020 DATE OF DISCHARGE: 01/03/2020 INFECTIOUS DISEASE SPECIALIST: Dr. Chantell Mcduffie PRIMARY DISCHARGE DIAGNOSES: 1. Klebsiella pneumoniae bacteremia. 2. Escherichia coli urinary tract infection. 3. Chronic total parenteral nutrition due to history of Crohn's disease via peripherally inserted central catheter line. 4. Iron deficiency anemia. 5. 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 6. Cholelithiasis. 7. Splenomegaly. 8. Noncalcified right upper pulmonary nodule. 9. Failure to thrive secondary to Crohn's disease, requiring total parental nutrition via peripherally inserted central catheter line. 10. Small uterine leiomyoma. 11, Acute kidney injury. DISCHARGE MEDICATIONS: - ceftriaxone 2 grams intravenous (IV) every 24, to be managed by Dr. Chantell Mcduffie as outpatient - total parenteral nutrition (TPN) and lactated Ringer's (LR) as previously prescribed - vitamin D3 at 2000 units every third day - cyanocobalamin 1000 mcg intramuscular per month - calcium with vitamin D one tablet daily - ferrous gluconate 27 mg daily - oxycodone/acetaminophen 325/2.5 half a tablet every 6 as needed for pain - TPN/Entyvio 300 mg IV as directed - Lomotil as needed - hydrocortisone 10 twice a day - LR 1 liter daily - Protonix 40 mg daily HOSPITAL COURSE: This is a 74-year-old female, seen in the emergency room on December 30 with complaints of chills and back pain. Was found to have no infectious process on CT abdomen and pelvis and CT chest. Urinalysis (UA) was obtained. After 24 hours, patient was found to have a gram-negative bacteremia and was sent to the hospital for immediate hospitalization and IV antibiotics. Patient was started on IV Zosyn, changed to IV cefazolin after urine culture grew out Escherichia (E) coli. Patient had no symptoms, fever, chills, or white count. Blood culture grew out Klebsiella pneumoniae. Infectious disease specialist had been consulted and recommended IV ceftriaxone as outpatient, 2 grams daily for 2 weeks. Outpatient followup with repeat C-reactive protein (CRP), sedimentation, complete blood count (CBC) with differential. Patient had had no fever, chills, no other new complaints. White count had been normal. PHYSICAL EXAMINATION ON DISCHARGE: Temperature 98.5, pulse 76, respiratory rate 17, blood pressure 124/69, 99% on room air. GENERAL: Patient is awake, alert, oriented to person, place, and time, answering questions appropriately. LUNGS: Clear to auscultation. No wheezing, rales, or rhonchi. HEART: S1, S2. ABDOMEN: Soft, nontender, nondistended. Positive bowel sounds. Has colostomy with some erythema along the area but no purulent drainage. No rebound or guarding. EXTREMITIES: No cyanosis, clubbing, or pitting edema. Right-sided PICC appears clean, nontender, nondistended, nonerythematous. LABORATORY DATA ON DISCHARGE: White count 3.5, hemoglobin 12, hematocrit 36, platelet count of 199. Sodium 145, potassium 4, chloride 115, bicarbonate 25, BUN 23, creatinine 1.14, glucose 72. On December 31, two sets of blood cultures negative. On January 01, two sets of blood cultures negative. On December 30: Urine culture, E. coli sensitive to cefazolin and ceftriaxone. Two sets of blood cultures, December 30: Klebsiella pneumoniae sensitive to ceftriaxone. IMAGING STUDIES: CT chest : Right subclavian catheter is present with tip in lower superior vena cava (SVC). No pulmonary embolism. No thoracic aortic aneurysm or dissection identified. Bilateral lower lobe mild endobronchial mucous plugging. Mild ascending aortic ectasia, cholelithiasis, heterogenous thyroid goiter, interval change in density, coronary atherosclerosis and calcified right upper lobe nodule. CT abdomen and pelvis: Cholelithiasis, splenomegaly, bilateral renal cortical atrophy, multiple moderate superior mesenteric artery (SMA) stenosis, severe interior mesenteric artery (SHASHA) stenosis, extensive previous small-bowel resection, previous total colectomy with abdominoperineal resection. Medial left upper pelvic anterior small bowel ostomy. Small uterine leiomyoma. DISCHARGE PLANS AND INSTRUCTIONS: Patient is to complete IV ceftriaxone as per infectious disease (ID) recommendations. Followup as outpatient within 1-2 weeks with primary care and ID with weekly CBC with erythrocyte sedimentation rate (ESR), sedimentation, and basic metabolic profile (BMP). Primary care physician (PCP) to refer to vascular surgery or interventional radiology (IR) due to SMA and SHASHA stenosis. TIME SPENT ON DISCHARGE: 30 minutes. [facility]
== END 2020-01-03 13:51 | disposition home or self-care (01) | DRG 315 ==
LOC: M ED 11:32 → M ED INP 13:30 → ENRESERV 14:46 → M MSPAV 16:00
PROVIDERS: ADMIT General Practice; ATTEND General Practice
DX: T82.7XXA Infection and inflammatory reaction due to other cardiac and vascular devices, implants and grafts, initial encounter (principal); R78.81 Bacteremia; K50.90 Crohn's disease, unspecified, without complications; K55.1 Chronic vascular disorders of intestine; N39.0 Urinary tract infection, site not specified; R91.1 Solitary pulmonary nodule; N18.3 Chronic kidney disease, stage 3 (moderate); E53.8 Deficiency of other specified B group vitamins; E55.9 Vitamin D deficiency, unspecified; D50.9 Iron deficiency anemia, unspecified; K44.9 Diaphragmatic hernia without obstruction or gangrene; K80.20 Calculus of gallbladder without cholecystitis without obstruction; K21.9 Gastro-esophageal reflux disease without esophagitis; M10.9 Gout, unspecified; D25.9 Leiomyoma of uterus, unspecified; B96.29 Other Escherichia coli [E. coli] as the cause of diseases classified elsewhere; M06.9 Rheumatoid arthritis, unspecified; M19.90 Unspecified osteoarthritis, unspecified site; B96.1 Klebsiella pneumoniae [K. pneumoniae] as the cause of diseases classified elsewhere; Y84.2 Radiological procedure and radiotherapy as the cause of abnormal reaction of the patient, or of later complication, without mention of misadventure at the time of the procedure

== ENCOUNTER → 2020-01-06 | Outpatient (REF) | payer MEDICARE ==
[~2020-01-06] MED LIST changes: +CALCD50TA PO; +CEFD300CAP PO; +CEFT2ADD INJ; +CEFT2INJ4 IV; +D31000TA2 PO; +FERR325T16 PO; +IRON27TA2 PO; +LOMO2.5T PO; +LOSA50TA88 PO; +LR10IV IV; +PANT-23 PO
[2020-01-06 13:22] LABS: HEMATOCRIT 34.2 % (36.0-47.0); HEMOGLOBIN 11.4 g/dl (12.0-15.5); MEAN CORPUSCULAR HEMOGLOBIN 32.9 pg (27.0-33.0); MEAN CORPUSCULAR HGB CONC 33.3 g/dl (32.0-36.5); MEAN CORPUSCULAR VOLUME 98.6 fl (80.0-96.0); PLATELET COUNT, AUTOMATED 229 10^3/uL (150-450); RED BLOOD COUNT 3.47 10^6/uL (4.00-5.40); WHITE BLOOD COUNT 5.9 10^3/uL (4.0-10.0)
[2020-01-06 13:57] LABS: CALCIUM LEVEL 8.8 MG/DL (8.8-10.2); CREATININE FOR GFR 1.09 MG/DL (0.55-1.30); GLOMERULAR FILTRATION RATE 52.5 (>39); MAGNESIUM LEVEL 2.2 MG/DL (1.8-2.4); PHOSPHORUS LEVEL 3.5 MG/DL (2.5-4.9); POTASSIUM SERUM 4.1 MEQ/L (3.5-5.1); PREALBUMIN 19.5 MG/DL (20.0-40.0)
== END ==
LOC: M SHH 12:40
PROVIDERS: ATTEND Internal Medicine Gastroenterology
DX: E44.0 Moderate protein-calorie malnutrition (principal); K50.814 Crohn's disease of both small and large intestine with abscess

== ENCOUNTER 2020-01-10 07:16 | Outpatient (CLI) | payer MEDICARE ==
[~2020-01-10] VITALS: Ht 154.9 cm; Wt 57.2 kg
[~2020-01-10 07:16] MED LIST changes: -CALCD50TA PO; -CEFD300CAP PO; -CEFT2ADD INJ; -FERR325T16 PO; -LOSA50TA88 PO
[2020-01-10] MEDS ORDERED: VEDOLIZUMAB 300 MG in NS 250 ML IV ONE (07:30)
[2020-01-10 07:35] VITALS: BP 131/86
[2020-01-10] MEDS ORDERED: CEFD300CAP PO (08:14)
[2020-01-10 08:55] VITALS: BP 136/73
[2020-01-10] MEDS ORDERED: SODIUM CHLORIDE 0.9% INJ 10 ML SYR IV PRN (09:00)
[2020-01-10] MEDS ORDERED: SODIUM CHLORIDE 0.9% INJ 10 ML SYR IV SCH (18:00)
== END 2020-01-10 08:55 | disposition home or self-care (01) ==
LOC: M INFU 07:16
PROVIDERS: ATTEND Internal Medicine Gastroenterology
DX: K50.90 Crohn's disease, unspecified, without complications (principal); Z88.2 Allergy status to sulfonamides; Z88.8 Allergy status to other drugs, medicaments and biological substances

== ENCOUNTER → 2020-01-13 | Outpatient (REF) | payer MEDICARE ==
[~2020-01-13] MED LIST changes: +CALCD50TA PO; +CEFD300CAP PO; +CEFT2ADD INJ; +FERR325T16 PO; +LOSA50TA88 PO
[2020-01-13 15:17] LABS: HEMATOCRIT 34.6 % (36.0-47.0); HEMOGLOBIN 11.1 g/dl (12.0-15.5); MEAN CORPUSCULAR HEMOGLOBIN 32.3 pg (27.0-33.0); MEAN CORPUSCULAR HGB CONC 32.1 g/dl (32.0-36.5); MEAN CORPUSCULAR VOLUME 100.6 fl (80.0-96.0); PLATELET COUNT, AUTOMATED 184 10^3/uL (150-450); RED BLOOD COUNT 3.44 10^6/uL (4.00-5.40); WHITE BLOOD COUNT 5.5 10^3/uL (4.0-10.0)
[2020-01-13 15:49] LABS: CALCIUM LEVEL 8.6 MG/DL (8.8-10.2); CREATININE FOR GFR 1.02 MG/DL (0.55-1.30); GLOMERULAR FILTRATION RATE 56.7 (>39); MAGNESIUM LEVEL 2.3 MG/DL (1.8-2.4); PHOSPHORUS LEVEL 3.8 MG/DL (2.5-4.9); POTASSIUM SERUM 3.9 MEQ/L (3.5-5.1); PREALBUMIN 29.7 MG/DL (20.0-40.0)
== END ==
LOC: M SHH 14:53
PROVIDERS: ATTEND Internal Medicine Gastroenterology
DX: E44.0 Moderate protein-calorie malnutrition (principal); K50.814 Crohn's disease of both small and large intestine with abscess

== ENCOUNTER → 2020-01-20 | Outpatient (REF) | payer MEDICARE ==
[2020-01-20 14:32] LABS: HEMATOCRIT 33.6 % (36.0-47.0); HEMOGLOBIN 10.7 g/dl (12.0-15.5); MEAN CORPUSCULAR HEMOGLOBIN 31.7 pg (27.0-33.0); MEAN CORPUSCULAR HGB CONC 31.8 g/dl (32.0-36.5); MEAN CORPUSCULAR VOLUME 99.4 fl (80.0-96.0); PLATELET COUNT, AUTOMATED 145 10^3/uL (150-450); RED BLOOD COUNT 3.38 10^6/uL (4.00-5.40); WHITE BLOOD COUNT 7.6 10^3/uL (4.0-10.0)
[2020-01-20 14:59] LABS: CALCIUM LEVEL 8.5 MG/DL (8.8-10.2); CREATININE FOR GFR 1.3 MG/DL (0.55-1.30); GLOMERULAR FILTRATION RATE 42.9 (>39); MAGNESIUM LEVEL 2.1 MG/DL (1.8-2.4); PHOSPHORUS LEVEL 3.6 MG/DL (2.5-4.9); POTASSIUM SERUM 3.7 MEQ/L (3.5-5.1); PREALBUMIN 22.7 MG/DL (20.0-40.0)
== END ==
LOC: M SHH 13:43 → M LAB REF 13:43
PROVIDERS: ATTEND Internal Medicine Gastroenterology
DX: E44.0 Moderate protein-calorie malnutrition (principal); K50.814 Crohn's disease of both small and large intestine with abscess

== ENCOUNTER → 2020-01-21 | Outpatient (REF) | payer MEDICARE | LOC: M SHH 11:53 | PROVIDERS: ATTEND Internal Medicine Infectious Disease | DX: R78.81 Bacteremia (principal); B96.1 Klebsiella pneumoniae [K. pneumoniae] as the cause of diseases classified elsewhere ==

== ENCOUNTER 2020-01-27 11:47 | Inpatient (IN) | payer MEDICARE ==
[~2020-01-27] VITALS: Ht 154.9 cm; Wt 65.6 kg
[~2020-01-27 11:47] MED LIST changes: -CALCD50TA PO; -CEFT2ADD INJ; -FERR325T16 PO; -LOSA50TA88 PO
[2020-01-27] MEDS ORDERED: ACETAMINOPHEN TAB 650MG DOSE (2X325MG) PO ONE (13:00)
[2020-01-27 13:34] LABS: BASO % 0.3 % (0.0-1.0); EOS % 0.2 % (0.0-3.0); HEMATOCRIT 31.4 % (36.0-47.0); HEMOGLOBIN 10.2 g/dl (12.0-15.5); LYMPH # 0.4 10^3/uL (1.5-5.0); LYMPH % 3.7 % (24.0-44.0); MEAN CORPUSCULAR HEMOGLOBIN 31.3 pg (27.0-33.0); MEAN CORPUSCULAR HGB CONC 32.5 g/dl (32.0-36.5); MEAN CORPUSCULAR VOLUME 96.3 fl (80.0-96.0); MONO # 0.5 10^3/uL (0.0-0.8); MONO % 4.9 % (0.0-5.0); NEUTROPHILS # 9.5 10^3/uL (1.5-8.5); PLATELET COUNT, AUTOMATED 164 10^3/uL (150-450); RED BLOOD COUNT 3.26 10^6/uL (4.00-5.40); WHITE BLOOD COUNT 10.6 10^3/uL (4.0-10.0)
[2020-01-27 13:56] LABS: INR 1.09; PROTHROMBIN TIME 14.3 SECONDS (12.5-14.3)
[2020-01-27 14:02] LABS: ALBUMIN 1.9 GM/DL (3.2-5.2); ALT/SGPT 15 U/L (12-78); BILIRUBIN,DIRECT 1.6 MG/DL (0.0-0.2); BILIRUBIN,TOTAL 2.2 MG/DL (0.2-1.0); BLOOD UREA NITROGEN 45 MG/DL (7-18); CALCIUM LEVEL 8.5 MG/DL (8.8-10.2); CARBON DIOXIDE LEVEL 27 MEQ/L (21-32); CHLORIDE LEVEL 105 MEQ/L (98-107); CK-MB VALUE MASS < 1.0 NG/ML (<3.6); CPK CREATINE PHOSPHOKINASE 10 U/L (26-192); CREATININE FOR GFR 1.36 MG/DL (0.55-1.30); GLOMERULAR FILTRATION RATE 40.6 (>39); GLUCOSE, FASTING 117 MG/DL (70-100); LIPASE 93 U/L (73-393); POTASSIUM SERUM 4.3 MEQ/L (3.5-5.1); SODIUM LEVEL 138 MEQ/L (136-145); TOTAL PROTEIN 6.1 GM/DL (6.4-8.2); TROPONIN I 0.04 NG/ML (< 0.10)
[2020-01-27 14:55] LABS: APPEARANCE, URINE HAZY (CLEAR); BACTERIA, URINE AUTO NEGATIVE (NEGATIVE); BILIRUBIN, URINE AUTO NEGATIVE (NEGATIVE); BLOOD, URINE BLOOD 2+ (NEGATIVE); COLOR, URINE AMBER (YELLOW); GLUCOSE, URINE (UA) AUTO NEGATIVE (NEGATIVE); KETONE, URINE AUTO NEGATIVE (NEGATIVE); LEUKOCYTE ESTERASE, URINE AUTO 2+ (NEGATIVE); MUCUS, URINE SMALL (NEGATIVE); NITRITE, URINE AUTO NEGATIVE (NEGATIVE); PROTEIN, URINE AUTO 1+ mg/dL (NEGATIVE); RBC, URINE AUTO 24 /HPF (0-3); SPECIFIC GRAVITY URINE AUTO 1.018 (1.002-1.035); SQUAMOUS EPITHELIAL CELL UR AU 3 /HPF (0-6); UROBILINOGEN, URINE AUTO 0.2 mg/dL (0.0-2.0); WBC, URINE AUTO 50 /HPF (0-3)
[2020-01-27] MEDS ORDERED: ISOVUE-370 76% 100ML VIAL As Ordered ONE (14:58)
--- NOTE | 2020-01-27 16:28 | REPVR ---
PROCEDURE INFORMATION: Exam: XR Chest, 1 View Exam date and time: 01/27/2020 4:08 PM Age: 75 years old Clinical indication: Chest pain; Additional info: Chest pain/sob TECHNIQUE: Imaging protocol: XR of the chest Views: 1 view. COMPARISON: 1. CR PORTABLE CHEST X-RAY 12/31/2019 2:[address] ANGIO CHEST 12/31/2019 4:53:27 PM FINDINGS: Tubes, catheters and devices: Right PICC tip projects over the superior vena cava near the cavoatrial junction. Lungs: Minimal left basilar atelectasis versus pneumonia, slightly increased. Pleural space: Either small left pleural effusion or left basilar pleural thickening. No pneumothorax. Heart/Mediastinum: Unremarkable. No cardiomegaly. Vasculature: There is atherosclerotic calcification of the aortic arch. Bones/joints: Unremarkable. IMPRESSION: 1. Minimal left basilar versus pneumonia which is slightly increased. 2. Either small left pleural effusion or left basilar pleural thickening. Electronically signed by: Rosa Owen On 01/27/2020 16:28:30 PM
--- NOTE | 2020-01-27 19:36 | REPVR ---
PROCEDURE INFORMATION: Exam: CT Abdomen And Pelvis With Contrast Exam date and time: 01/27/2020 6:22 PM Age: 75 years old Clinical indication: Fever; Abdominal pain; Flank; Right; Additional info: Right sided abd pain, fever TECHNIQUE: Imaging protocol: Computed tomography of the abdomen and pelvis with intravenous contrast. Radiation optimization: All CT scans at this facility use at least one of these dose optimization techniques: automated exposure control; mA and/or kV adjustment per patient size (includes targeted exams where dose is matched to clinical indication); or iterative reconstruction. Contrast material: ISOVUE 370; Contrast volume: 100 ml; Contrast route: INTRAVENOUS (IV); COMPARISON: 1. CT ABD/PEL W/IV CONTRAST ONLY 12/31/2019 4:[address] ANGIO CHEST 12/31/2019 4:53:[address] ABD PELVIS W/O FOL BY WIT 09/19/2019 2:54:[address] ABD/PEL W/IV CONTRAST ONLY 01/19/2018 1:48:46 AM FINDINGS: Lungs: There is a 7 mm pulmonary nodule in the right middle lobe, on series 201, image 1. This is incompletely characterized and appears new since 12/31/2019. Small subpleural nodules along the right major fissure measuring 3 and 7 mm with elongated appearance. The 3 mm nodule is unchanged from 12/31/2019 and the 7 mm nodule is new. These are seen on series 201 image 2. Mild bibasilar atelectasis, left worse than right. Heart size is enlarged. Coronary and aortic atherosclerosis noted. Very small sliding-type hiatal hernia. Pleural space: There are small bilateral pleural effusions, larger on the left, with subpulmonic component on the left. These are new. Heart: 12 mm region of decreased density in the right atrium is slightly smaller in size but better defined. It is unclear whether this represents admixture of noncontrast enhanced blood and enhanced blood or a thrombus. Liver: Normal. No mass. Gallbladder and bile ducts: Lamellated gallstone is seen in the gallbladder. Surgical clips are again seen adjacent to the gallbladder. No significant biliary ductal dilatation. Pancreas: Normal. No ductal dilation. Spleen: The spleen is enlarged, measuring 14.2 cm. Adrenals: Normal. No mass. Kidneys and ureters: There is bilateral renal cortical atrophy. Stomach and bowel: Previous total colectomy. Extensive previous small bowel resection with abdominal peritoneal resection. Persistent stranding in the mesentery and pericolic gutters, likely scarring. No bowel dilatation to indicate obstruction. No pneumatosis. No free fluid. No free air. Medial left upper pelvic anterior small bowel ostomy site again seen. Appendix: Resected. Intraperitoneal space: See "Stomach and bowel" finding. Vasculature: There is calcified atherosclerotic plaque in the abdominal aorta and medium-sized arteries in the abdomen and pelvis. No aortic aneurysm. Moderate and severe stenoses again seen in the superior mesenteric artery. There is also unchanged suspected segmental occlusion of a superior mesenteric artery branch on the right. At least near occlusion of the inferior mesenteric artery again seen with suspected trickle flow, as before. Lymph nodes: Unremarkable. No enlarged lymph nodes. Urinary bladder: Mild bladder wall thickening with adjacent fat stranding. Reproductive: 15 mm hypodense presumed fibroid in the uterus. Bones/joints: No acute osseous abnormality. Soft tissues: Unremarkable. IMPRESSION: 1. Extensive abdominal surgery status post total colectomy with abdominal peritoneal resection, significant small-bowel resection, and left-sided small bowel ostomy. No bowel obstruction. 2. Splenomegaly. 3. Multiple moderate to severe stenoses of the superior mesenteric artery, with continued segmental occlusion of a right-sided branch of the superior mesenteric artery, and continued segmental near occlusion of the inferior mesenteric artery with suspected trickle flow. 4. Cholelithiasis. 5. 13 mm region of low density in the right atrium, most likely artifact from contrast opacified and non contrast opacified blood. This is favored over right atrial thrombus, but right atrial thrombus is not completely excluded. This is better visualized than on 12/31/2019. 6. New small bilateral pleural effusions, larger on the left, with increased bibasilar atelectasis. 7. 7 mm right middle lobe pulmonary nodule which is new since the prior study, with adjacent 7 mm elongated nodule along the right major fissure which also appears new. 3 mm stable subpleural pulmonary lung nodule also nearby. For patients at low risk (minimal or absent history of smoking and of other known risk factors), recommend CT Chest at 3-6 months, then consider CT Chest at 18-24 months. For patients at high risk (history of smoking or of other known risk factors), recommend CT Chest at 3-6 months, then CT Chest at 18-24 months. (Reference: Chelsy) References: Chelsy Singh, et al. Guidelines for Management of Incidental Pulmonary Nodules Detected on CT Images: From the Fleischner Society 2017. Radiology. 2017;284(1):228-243. Electronically signed by: Rosa Owen On 01/27/2020 19:36:16 PM
--- NOTE | 2020-01-27 19:48 | ECGEPIP ---
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
[2020-01-27] MEDS ORDERED: PIPERACILLIN/TAZOBACTAM SOD 3.375 GM in D5W MINI-BAG PLUS 50 ML IV ONE (20:00)
[2020-01-27] MEDS ORDERED: VANCOMYCIN HCL 1,000 MG, VIAL MATE ADAPTER 1 EACH in D5W 250 ML IV ONE (20:00)
[2020-01-27] MEDS ORDERED: MOM 30ML SUSPENSION UDC PO PRN (20:30)
[2020-01-27] MEDS ORDERED: MAALOX 30 ML SUSP *UDC PO PRN (20:30)
[2020-01-27] MEDS: HYDROCORTISONE 10 MG TAB PO SCH (21:00)
[2020-01-27] MEDS ORDERED: FERR325T16 PO (21:11)
[2020-01-27] MEDS ORDERED: CALCD50TA PO (21:11)
[2020-01-27] MEDS ORDERED: OXYC1TAB23 PO (21:11)
[2020-01-27] MEDS ORDERED: LOSA50TA88 PO (21:11)
--- NOTE | 2020-01-27 22:00 | HPEPDOC ---
[facility] Medical History & Physical Date of Admission Jan 27, 2020 Date of Service: Jan 27, 2020 Primary Care Physician: Cezar Olvera MD Attending Physician: SANDEEP VILLA MD History and Physical TIME OF SERVICE: 9:35 PM CHIEF COMPLAINT: Back pain HISTORY OF PRESENT ILLNESS: This 75-year-old female admitted in December for management of pneumonia and UTI. Today her home RN called EMS bring her to the hospital because she had intermittent lower 10 out of 10 in severity, back pain that was associated with chills and fever for a few days. She denies having n/v/d or abdominal pain. She chronically has a runny nose and occasionally coughs but these symptoms haven't' changed in nature recently. REVIEW OF SYSTEMS: 12 point review of systems negative except as listed in HPI PAST MEDICAL/ SURGICAL HISTORY: Crohn's complicated by fistulas requiring multiple fistulectomies, total colectomy, abdominal peritoneal resection, partial small bowel resection and left sided small bowel ostomy Splenomegaly Noncalcified right upper pulmonary nodule Multiple moderate SMA stenosis / severe SHASHA stenosis Bilateral renal cortical atrophy Uterine leiomyoma Iron deficiency anemia B12 deficiency GERD with hiatal hernia Hypertension Vitamin D deficiency Osteopenia Fatty liver Adrenal insufficiency CKD 3 Exploratory laparoscopy, lysis of adhesions, take-down of duodenal colic fistula Right arm PICC for TPN small bowel ostomy SOCIAL HISTORY: Lives at home with her Denies tobacco use, alcohol or drug use FAMILY HISTORY: Mother , breast cancer Brother of leukemia Brother of lung cancer ALLERGIES: Please see below. HOME MEDICATIONS: Please see below. PHYSICAL EXAMINATION: Vital Signs Date Time Temp Pulse Resp B/P (MAP) Pulse Ox O2 Delivery O2 Flow Rate FiO2 01/27/20 11:58 133/60 (84) 01/27/20 12:02 100 93 01/27/20 12:04 100.7 17 Room Air GEN: slim build / NAD INTEGUMENT: not flushed/ not jaundice HEENT: lips acyanotic CVS: RRR/NMRG/ no JVP / radial pulses intact LUNGS: able to speak full sentences without stopping to take a breath / no coughing / lungs are clear to auscultation bilaterally on room air ABDOMEN: Contour (flat) MSK/EXTREMITIES: NCAT / range of motion intact in all 4 extremities NEURO: CN 2-12 are grossly intact / speech is not dysarthric PSYCH: alert and oriented to person place and time/ able to understand and follow all commands LABORATORY DATA: 01/27/20 13:01 01/27/20 13:01: Immature Granulocyte % (Auto) 0.9, Neutrophils (%) (Auto) 90.0H, Lymphocytes (%) (Auto) 3.7L, Monocytes (%) (Auto) 4.9, Eosinophils (%) (Auto) 0.2, Basophils (%) (Auto) 0.3, Neutrophils # (Auto) 9.5H, Lymphocytes # (Auto) 0.4L, Monocytes # (Auto) 0.5, Eosinophils # (Auto) 0.0, Basophils # (Auto) 0.0, Nucleated Red Blood Cells % (auto) 0.0, Prothrombin Time 14.3H, Prothromb Time International Ratio 1.09, Activated Partial Thromboplast Time 30.0, Anion Gap 6L, Glomerular Filtration Rate 40.6, Lactic Acid Level 1.4, Calcium Level 8.5L, Total Bilirubin 2.2H, Direct Bilirubin 1.6H, Aspartate Amino Transf (AST/SGOT) 15, Alanine Aminotransferase (ALT/SGPT) 15, Alkaline Phosphatase 179H, Total Creatine Kinase 10L, Creatine Kinase MB < 1.0, Creatine Kinase MB Relative Index 10.00H, Troponin I 0.04, Total Protein 6.1L, Albumin 1.9L, Albumin/Globulin Ratio 0.5L, Lipase 93 01/27/20 14:36: Urine Color MURPHY, Urine Appearance HAZY, Urine pH 5.0, Urine Specific [place] 1.018, Urine Protein 1+H, Urine Glucose (Auto)(UA) NEGATIVE, Urine Ketones (Auto) NEGATIVE, Urine Blood 2+H, Urine Nitrite NEGATIVE, Urine Bilirubin NEGATIVE, Urine Urobilinogen 0.2, Urine Leukocyte Esterase (Auto) 2+H, Urine WBC (Auto) 50H, Urine RBC (Auto) 24H, Urine Hyaline Casts (Auto) 0, Urine Bacteria (Auto) NEGATIVE, Urine Squamous Epithelial Cells 3, Urine Mucus (Auto) SMALL, Urine Sperm (Auto) IMAGING: Chest xray "1. Minimal left basilar versus pneumonia which is slightly increased. 2. Either small left pleural effusion or left basilar pleural thickening." CT abdomen "...Urinary bladder: Mild bladder wall thickening with adjacent fat stranding....IMPRESSION: 1. Extensive abdominal surgery status post total col ectomy with abdominal peritoneal resection, significant small-bowel resection, and left-sided small bowel ostomy. No bowel obstruction. 2. Splenomegaly. 3. Multiple moderate to severe stenoses of the superior mesenteric artery, with continued segmental occlusion of a right-sided branch of the superior mesenteric artery, and continued segmental near occlusion of the inferior mesenteric artery with suspected trickle flow. 4. Cholelithiasis. 5. 13 mm region of low density in the right atrium, most likely artifact from contrast opacified and non contrast opacified blood. This is favored over right atrial thrombus, but right atrial thrombus is not completely excluded. This is better visualized than on 12/31/2019. 6. New small bilateral pleural effusions, larger on the left, with increased bibasilar atelectasis. 7. 7 mm right middle lobe pulmonary nodule which is new since the prior study, with adjacent 7 mm elongated nodule along the right major fissure which also appears new. 3 mm stable subpleural pulmonary lung nodule also nearby. " MICROBIOLOGY: 01/27/20 Blood Culture, Received Pending 01/27/20 Urine Culture, Received Pending 01/27/20 Respiratory Virus Panel (PCR) (OLY) - Final, Complete 01/27/20 Blood Culture, Received Pending ASSESSMENT: Ms. Etienne is a 75-year-old with a history of Crohns requiring colectomy with subsequent ostomy, SMA stenosis, anemia, hypertension, fatty liver, CKD 3, and adrenal insufficiency who presented with complaints of back pain, based on the UA and CT scan findings of a thickened bladder with fat stranding, she will be admitted for sepsis secondary to UTI. PLAN: 1. Sepsis 2/2 UTI SIRS criteria: Temp >101 / HR >90 Plan: admit to PCU / telemetry / Levofloxacin / switch to lactate ringers /f/u blood cx, UCx / Acetaminophen PRN for fever / target MAP at of least 65 to 70 / f/u Is and Os with target UOP of at least 0.5 ml/kg/H / target serum glucose 140-180 while acutely ill 2. Questionable PNA Despite xray findings of L sided PNA she doesn't have URI symptoms Plan: monitor 3. Possible Atrial Thrombus on CT Plan: f/u Echo 4.Crohn's w small bowel ostomy Plan: ostomy care / f/u for Entyvio infusions as scheduled / TPN via PICC 5. Chronic HTN Plan: Losartan 6. Vitamin D deficiency / Osteopenia Plan: Ca w vitamin D 7. Adrenal insufficiency Plan: Hydrocortisone 8. CKD 3 Plan: f/u BMP 9. 4. GERD with hiatal hernia Plan: PPI DVT PROPHYLAXIS: lovenox DISPOSITION: home after more than 2 midnight's stay Home Medications Scheduled Calcium/Vitamin D (Calcium 500-Vit D3 200 Tablet) 1 Each Tablet, 500 MG PO DAILY Cholecalciferol (Vitamin D3) (Vitamin D3) 1,000 Unit Tablet, 2,000 UNITS PO Q2D Cyanocobalamin (Cyanocobalamin Injection) 1,000 Mcg/1 Ml Inj, 1,000 MCG IM QMONTH GIVEN IN PHYSICIANS OFFICE: GETS IN LAST WEEK OF THE MONTH (HAD AT END OF ) Ferrous Gluconate (Ferrous Gluconate) 324 Mg Tablet, 324 MG PO BID Hydrocortisone (Hydrocortisone) 10 Mg Tab, 10 MG PO BID Lactated Ringer's (Lactated Ringers) 1,000 Ml Iv.soln, 1,000 ML IV DAILY GIVEN AFTER TPN AND ADMINISTER OVER 6 HOURS; STILL RUNNING FROM HOME Pantoprazole Sodium (Pantoprazole Sodium) 40 Mg Tablet.dr, 40 MG PO DAILY Sodium/Pot/Mag/Calc/Chlor/Acet (TPN Electrolytes Vial) 1 Inj Inj, 1 INJ IV DAILY BEGIN AT 1800 AND ADMINISTER OVER 6 HOURS Vedolizumab (Entyvio) 300 Mg Vial, 300 MG IV ASDIRECTED EVERY 6 TO 8 WEEKS, DUE February: HAD LAST DOSE SOMETIME IN Scheduled PRN Diphenoxylate HCl/Atropine (Lomotil 2.5-0.025 mg Tablet) 1 Each Tablet, 1 TAB PO QID PRN for DIARRHEA Losartan Potassium (Losartan Potassium) 50 Mg Tablet, 50 MG PO DAILY PRN for HYPERTENSION Oxycodone HCl/Acetaminophen (Oxycodone-Acetaminophen 5-325) 1 Each Tablet, 0.5 TAB PO Q6H PRN for PAIN Allergies Coded Allergies: Sulfa (Sulfonamide Antibiotics) (Verified Allergy, Intermediate, RASH, 08/15/18) infliximab (Verified Allergy, Intermediate, ITCHING, RASH 20YRS AGO, 09/07/18) balsalazide (Verified Adverse Reaction, Mild, IRRITABILITY, 08/15/18) budesonide (Verified Adverse Reaction, Mild, GI UPSET, 08/15/18) A-FIB/CHADSVASC A-FIB History Current/History of A-Fib/PAF?: No Current PO Anticoag Therapy: No SANDEEP VILLA MD Jan 27, 2020 22:00
[2020-01-27] MEDS ORDERED: LOMOTIL 2.5MG/0.025MG TABLET PO PRN (23:45)
[2020-01-27] MEDS ORDERED: LOSARTAN 50MG TABLET PO PRN (23:45)
[2020-01-27] MEDS ORDERED: PERCOCET 5MG/325MG TAB PO PRN (23:45)
[2020-01-27] MEDS: ACETAMINOPHEN TAB 650MG DOSE (2X325MG) PO PRN (23:57)
[2020-01-28] VITALS: BP 147/77
[2020-01-28] MEDS ORDERED: SODIUM CHLORIDE 0.9% INJ 10 ML SYR IV PRN (02:15)
[2020-01-28] MEDS ORDERED: LevoFLOXacin IV 750 MG in IV 1 EA IV ONE (03:00)
[2020-01-28 04:00] VITALS: BP 114/58
[2020-01-28 05:45] LABS: HEMATOCRIT 39.7 % (36.0-47.0); MEAN CORPUSCULAR HEMOGLOBIN 31.1 pg (27.0-33.0); MEAN CORPUSCULAR HGB CONC 30.7 g/dl (32.0-36.5); MEAN CORPUSCULAR VOLUME 101.3 fl (80.0-96.0); PLATELET COUNT, AUTOMATED 181 10^3/uL (150-450); RED BLOOD COUNT 3.92 10^6/uL (4.00-5.40); WHITE BLOOD COUNT 9.2 10^3/uL (4.0-10.0)
[2020-01-28 05:46] LABS: HEMOGLOBIN 12.2 g/dl (12.0-15.5)
[2020-01-28] MEDS: SODIUM CHLORIDE 0.9% INJ 10 ML SYR IV SCH ×2 (05:55→07:54)
[2020-01-28 06:02] LABS: BLOOD UREA NITROGEN 36 MG/DL (7-18); CALCIUM LEVEL 8.7 MG/DL (8.8-10.2); CARBON DIOXIDE LEVEL 25 MEQ/L (21-32); CHLORIDE LEVEL 107 MEQ/L (98-107); CREATININE FOR GFR 1.61 MG/DL (0.55-1.30); GLOMERULAR FILTRATION RATE 33.4 (>39); GLUCOSE, FASTING 95 MG/DL (70-100); MAGNESIUM LEVEL 2.4 MG/DL (1.8-2.4); SODIUM LEVEL 142 MEQ/L (136-145)
[2020-01-28] MEDS: ACETAMINOPHEN TAB 650MG DOSE (2X325MG) PO PRN (07:52)
[2020-01-28] MEDS: CALCIUM/VITAMIN D 500 MG TAB PO SCH (07:53)
[2020-01-28] MEDS: HYDROCORTISONE 10 MG TAB PO SCH ×2 (07:54→20:07)
[2020-01-28 08:00] VITALS: BP_SYST 110; BP_SYST 114; BP_DIAS 50; BP_DIAS 56
[2020-01-28] MEDS ORDERED: NS 1,000 ML IV SCH (08:45)
[2020-01-28] MEDS ORDERED: PIPERACILLIN/TAZOBACTAM SOD 3.375 GM in D5W MINI-BAG PLUS 50 ML IV SCH (08:45)
[2020-01-28] MEDS ORDERED: PANTOPRAZOLE 40MG TAB (PROTONIX) PO SCH (09:00)
[2020-01-28] MEDS ORDERED: ENOXAPARIN 40MG/0.4ML SYRINGE (J1650 PER 10MG) SC SCH (09:00)
[2020-01-28] MEDS ORDERED: FLUBLOK(EGG FREE)(QUAD)INFLUENZA VACC 0.5ML SYRINGE 18YRS & OLDER IM ONE (09:00)
[2020-01-28] MEDS ORDERED: PREVNAR 13 VACCINE SYRINGE IM ONE (09:00)
[2020-01-28] MEDS ORDERED: LACTATED RINGER'S 1000 ML IV SCH (09:00)
[2020-01-28 09:17] LABS: CK-MB VALUE MASS < 1.0 NG/ML (<3.6); CPK CREATINE PHOSPHOKINASE 14 U/L (26-192); MB/CK RELATIVE INDEX 7.14 (< OR =4); TROPONIN I 0.03 NG/ML (< 0.10)
[2020-01-28] MEDS ORDERED: PIPERACILLIN/TAZOBACTAM SOD 2.25 GM in D5W MINI-BAG PLUS 50 ML IV SCH (10:00)
--- NOTE | 2020-01-28 10:55 | IPNPDOC ---
Text Note Date of Service The patient was seen on 01/28/20. 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 Patient was admitted to the hospital service for further evaluation and treatment. Patient was seen and examined at the bedside. Currently patient reports that she still experiences some back pain. There is left-sided CVA tenderness. , She reports that she had chills yesterday. Denies any nausea, vomiting, chest pain, shortness of breath, palpitations. Patient has output from her ostomy that has not changed. Patient denies any urinary discomfort. Objective: Vitals (See below) General: Lying in bed, reporting back pain, AAOx3 HEENT: NC, AT CVS: +S1S2 Lungs: Fair air entry b/l, no appreciable wheezing, rhonchi or rales Abdomen: Soft, ND, NT, + left sided CVA tenderness Extremities: - Edema, - Calf tenderness Assessment and plan: Sepsis - likely 2/2 Gram negative bacteremia - possibly 2/2 UTI / Pyelonephritis - Clinically patient reports that she is experiencing severe back pain - Physical with L sided CVA tenderness; no vertebral point tenderness, no focal neurologic deficits - No lactic acidosis - Will repeat UA / Culture - Blood cultures : Gram-negative rods - CT abdomen / pelvis 01/26: 1. Extensive abdominal surgery status post total colectomy with abdominal peritoneal resection, significant small-bowel resection, and left-sided small bowel ostomy. No bowel obstruction. 2. Splenomegaly. 3. Multiple moderate to severe stenoses of the superior mesenteric artery, with continued segmental occlusion of a right-sided branch of the superior mesenteric artery, and continued segmental near occlusion of the inferior mesenteric artery with suspected trickle flow. 4. Cholelithiasis. 5. 13 mm region of low density in the right atrium, most likely artifact from contrast opacified and non contrast opacified blood. This is favored over right atrial thrombus, but right atrial thrombus is not completely excluded. This is better visualized than on 12/31/2019. 6. New small bilateral pleural effusions, larger on the left, with increased bibasilar atelectasis. 7. 7 mm right middle lobe pulmonary nodule which is new since the prior study, with adjacent 7 mm elongated nodule along the right major fissure which also appears new. 3 mm stable subpleural pulmonary lung nodule also nearby. - Will start patient on Zosyn and aggressive IV fluid hydration RA on CKD - Cr has increased form admission; Cr baseline of 1.1-1.3 - Will avoid nephrotoxic medications - Will stop Losartan - Will start IV fluid hydration with Normal saline Questionable PNA - Clinically patient does not have any symptoms to suggest pneumonia. Denies any shortness of breath or productive cough - CXR 01/26: 1. Minimal left basilar versus pneumonia which is slightly increased. 2. Either small left pleural effusion or left basilar pleural thickening. - c/w Antibiotics above 13 mm region of low denisty in R atrium; likely 2/2 artifact, less likely 2/2 atrial thrombus - ECHO complete; report pending Crohn's w small bowel ostomy - c/w ostomy care - c/w Entyvio infusions as scheduled - Will hold TPN nutrition at this time (Re: bacteremia) Chronic HTN - Will hold Losartan (re: RA) Vitamin D deficiency / Osteopenia - c/w Calcium and Vitamin D Adrenal insufficiency - c/w Hydrocortisone GERD with hiatal hernia - c/w Protonix DVT prophylaxis - c/w Lovenox VS,Fishbone, I+O VS, Fishbone, I+O Laboratory Tests 01/27/20 13:01 01/28/20 05:15 Vital Signs Date Time Temp Pulse Resp B/P (MAP) Pulse Ox O2 Delivery O2 Flow Rate FiO2 01/28/20 08:00 99.1 114 20 114/56 (75) 95 Room Air I&O- Last 24 Hours up to 6 AM 01/28/20 06:00 Intake Total 170 ml Output Total 50 ml Balance 120 ml CODY FISHMAN MD Jan 28, 2020 10:55
[2020-01-28 12:00] VITALS: BP 110/58
[2020-01-28] MEDS ORDERED: PILL CUTTER 1 EACH XX PRN (12:45)
[2020-01-28] MEDS: PERCOCET 5MG/325MG TAB PO PRN ×2 (12:58→17:02)
[2020-01-28 14:20] LABS: CALCIUM LEVEL 8.6 MG/DL (8.8-10.2); CREATININE FOR GFR 1.51 MG/DL (0.55-1.30); POTASSIUM SERUM 4.6 MEQ/L (3.5-5.1)
[2020-01-28 16:00] VITALS: BP 114/62
--- NOTE | 2020-01-28 16:56 | REPVR ---
PROCEDURE INFORMATION: Exam: MR Lumbar Spine Without Contrast. Exam date and time: 01/28/2020 12:29 PM Age: 75 years old Clinical indication: Low back pain; Additional info: Back pain severe TECHNIQUE: Imaging protocol: Multiplanar magnetic resonance images of the lumbar spine without intravenous contrast. COMPARISON: DX SPINE LUMBOSACRAL PARTIAL 09/13/2017 9:21 AM FINDINGS: Vertebrae: Normal alignment other than minimal anterior spondylolisthesis of L5 on S1. No acute compression fracture. Spinal cord: The conus medullaris is normal appearance at the T12-L1 level. L1-L2: No significant spinal canal stenosis or neural foraminal narrowing. L2-L3: No significant spinal canal stenosis or neural foraminal narrowing. L3-L4: Minimally bulging annulus without significant spinal canal stenosis or neural foraminal narrowing. L4-L5: Moderate spinal canal stenosis due to apposition of the facet joints and ligamentum flavum hypertrophy without evidence of neural compromise. L5-S1: Grade 1 anterior spondylolisthesis due to subluxation of the degenerated facet joints. There may be a small central subligamentous disc herniation. There is resultant moderate spinal canal stenosis and narrowing of the lateral recesses greater on right than left which may affect the exiting S1 nerve roots. The neural foramina are patent. Other bones/joints: There appears to be diffuse replacement of the normal fatty marrow. Soft tissues: Unremarkable. IMPRESSION: There is moderate spinal canal stenosis at the L5-S1 level with a probable central subligamentous disc herniation and grade 1 anterior spondylolisthesis together narrowing the lateral recesses which may affect the exiting S1 nerve roots greater on right than left. There also appears to be diffuse replacement of the normal fatty marrow. Electronically signed by: Shahana Chavez On 01/28/2020 16:56:25 PM
[2020-01-28 20:00] VITALS: BP 110/56
[2020-01-29] VITALS: BP 111/62
[2020-01-29 04:00] VITALS: BP 113/58
[2020-01-29] MEDS: SODIUM CHLORIDE 0.9% INJ 10 ML SYR IV SCH ×2 (06:11→18:20)
[2020-01-29] MEDS: HYDROCORTISONE 10 MG TAB PO SCH ×2 (07:42→20:04)
[2020-01-29] MEDS: CALCIUM/VITAMIN D 500 MG TAB PO SCH (07:42)
[2020-01-29 08:00] VITALS: BP 138/69
[2020-01-29] MEDS: PERCOCET 5MG/325MG TAB PO PRN ×2 (08:21→12:54)
[2020-01-29 08:39] LABS: BASO % 0.3 % (0.0-1.0); EOS % 0.6 % (0.0-3.0); HEMATOCRIT 34.2 % (36.0-47.0); LYMPH # 0.6 10^3/uL (1.5-5.0); LYMPH % 8.6 % (24.0-44.0); MEAN CORPUSCULAR HEMOGLOBIN 31.5 pg (27.0-33.0); MEAN CORPUSCULAR HGB CONC 32.2 g/dl (32.0-36.5); MONO # 0.6 10^3/uL (0.0-0.8); MONO % 8.3 % (0.0-5.0); NEUTROPHILS # 5.5 10^3/uL (1.5-8.5); NEUTROPHILS % 81.9 % (36.0-66.0); PLATELET COUNT, AUTOMATED 171 10^3/uL (150-450); RED BLOOD COUNT 3.49 10^6/uL (4.00-5.40); WHITE BLOOD COUNT 6.7 10^3/uL (4.0-10.0)
[2020-01-29 09:00] LABS: CREATININE FOR GFR 1.58 MG/DL (0.55-1.30); GLOMERULAR FILTRATION RATE 34.1 (>39); POTASSIUM SERUM 3.8 MEQ/L (3.5-5.1)
[2020-01-29] MEDS ORDERED: FLUBLOK(EGG FREE)(QUAD)INFLUENZA VACC 0.5ML SYRINGE 18YRS & OLDER IM ONE (09:00)
[2020-01-29 09:01] LABS: C REACTIVE PROTEIN QUANTITATIV 13.1 MG/DL (0.00-0.30); CALCIUM LEVEL 8.6 MG/DL (8.8-10.2); MAGNESIUM LEVEL 2.5 MG/DL (1.8-2.4)
[2020-01-29] MEDS: NS 1,000 ML IV SCH ×2 (11:04→20:44)
--- NOTE | 2020-01-29 11:56 | IPNPDOC ---
Text Note Date of Service The patient was seen on 01/29/20. 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 Patient was admitted to the hospital service for further evaluation and treatment. Patient was seen and examined at the bedside. Patient has had an uneventful evening. Reports that her back pain has resolved completely. Denies any nausea, vomiting, chest pain, shortness breath, palpitations, abdominal discomfort, or urinary discomfort. She reports the output from her ostomy has remained the same. Objective: Vitals (See below) General: Lying in bed, reporting back pain, AAOx3 HEENT: NC, AT CVS: +S1S2 Lungs: Fair air entry b/l, no appreciable wheezing, rhonchi or crackles Abdomen: Soft, nondistended, nontender. No CVA tenderness appreciated Extremities: No evidence of edema, - Calf tenderness Assessment and plan: Sepsis - likely 2/2 Gram negative bacteremia - possibly 2/2 line infeciton; less likely 2/2 UTI / Pyelonephritis - Patient has had a prior hospitalization for PICC line associated infection with Klebsiella on 01/01/2020 and was treated with IV antibiotics (Ceftriaxone) as an outpatient for the 2 weeks - Currently patient reports full resolution of her symptoms - Physical with no CVA tenderness - No lactic acidosis - Repeat UA improved; Urine culture negative - Blood cultures : Gram-negative rods - CT abdomen / pelvis 01/26: 1. Extensive abdominal surgery status post total colectomy with abdominal peritoneal resection, significant small-bowel resection, and left-sided small bowel ostomy. No bowel obstruction. 2. Splenomegaly. 3. Multiple moderate to severe stenoses of the superior mesenteric artery, with continued segmental occlusion of a right-sided branch of the superior mesenteric artery, and continued segmental near occlusion of the inferior mesenteric artery with suspected trickle flow. 4. Cholelithiasis. 5. 13 mm region of low density in the right atrium, most likely artifact from contrast opacified and non contrast opacified blood. This is favored over right atrial thrombus, but right atrial thrombus is not completely excluded. This is better visualized than on 12/31/2019. 6. New small bilateral pleural effusions, larger on the left, with increased bibasilar atelectasis. 7. 7 mm right middle lobe pulmonary nodule which is new since the prior study, with adjacent 7 mm elongated nodule along the right major fissure which also appears new. 3 mm stable subpleural pulmonary lung nodule also nearby. - Repeated blood cultures this morning; anticipate discontinuing PICC line tonight/tomorrow morning and replacing PICC line entirely - c/w Zosyn and will resume IV fluids RA on CKD - Cr has increased form admission; Cr baseline of 1.1-1.3 - Will avoid nephrotoxic medications - Will stop Losartan - Will resume IV fluid hydration with Normal saline Questionable PNA - Clinically patient does not have any symptoms to suggest pneumonia. Denies any shortness of breath or productive cough - CXR 01/26: 1. Minimal left basilar versus pneumonia which is slightly increased. 2. Either small left pleural effusion or left basilar pleural thickening. - c/w Antibiotics above 13 mm region of low density in R atrium; likely 2/2 artifact, less likely 2/2 atrial thrombus - ECHO complete; report pending Crohn's w small bowel ostomy - c/w ostomy care - c/w Entyvio infusions as scheduled - Will hold TPN nutrition at this time (Re: bacteremia); will likely resume as outpatient Chronic HTN - BP well controlled - Will hold Losartan (re: RA) Vitamin D deficiency / Osteopenia - c/w Calcium and Vitamin D Adrenal insufficiency - c/w Hydrocortisone GERD with hiatal hernia - c/w Protonix DVT prophylaxis - c/w Lovenox Disposition: - Anticipate DC tomorrow VS,Fishbone, I+O VS, Fishbone, I+O Laboratory Tests 01/28/20 13:36 01/29/20 08:06 Vital Signs Date Time Temp Pulse Resp B/P (MAP) Pulse Ox O2 Delivery O2 Flow Rate FiO2 01/29/20 08:51 18 Room Air 01/29/20 08:00 98.0 76 138/69 (92) 98 I&O- Last 24 Hours up to 6 AM 01/29/20 06:00 Intake Total 570 ml Output Total 2600 ml Balance -2030 ml CODY FISHMAN MD Jan 29, 2020 11:56
[2020-01-29 12:00] VITALS: BP 142/75
[2020-01-29 16:00] VITALS: BP 108/57
[2020-01-29 20:00] VITALS: BP 120/57
[2020-01-30] VITALS: BP 142/65
[2020-01-30 04:00] VITALS: BP 158/77
[2020-01-30] MEDS: SODIUM CHLORIDE 0.9% INJ 10 ML SYR IV SCH (05:53)
[2020-01-30] MEDS: NS 1,000 ML IV SCH (05:56)
[2020-01-30 07:05] LABS: BASO % 0.2 % (0.0-1.0); EOS % 0.5 % (0.0-3.0); HEMATOCRIT 32.3 % (36.0-47.0); HEMOGLOBIN 10.1 g/dl (12.0-15.5); LYMPH # 0.6 10^3/uL (1.5-5.0); LYMPH % 14.5 % (24.0-44.0); MEAN CORPUSCULAR HEMOGLOBIN 31.2 pg (27.0-33.0); MEAN CORPUSCULAR HGB CONC 31.3 g/dl (32.0-36.5); MEAN CORPUSCULAR VOLUME 99.7 fl (80.0-96.0); MONO # 0.4 10^3/uL (0.0-0.8); MONO % 9.7 % (0.0-5.0); NEUTROPHILS # 3.1 10^3/uL (1.5-8.5); NEUTROPHILS % 74.6 % (36.0-66.0); PLATELET COUNT, AUTOMATED 183 10^3/uL (150-450); RED BLOOD COUNT 3.24 10^6/uL (4.00-5.40); WHITE BLOOD COUNT 4.2 10^3/uL (4.0-10.0)
[2020-01-30 07:37] LABS: C REACTIVE PROTEIN QUANTITATIV 8.93 MG/DL (0.00-0.30); CALCIUM LEVEL 7.7 MG/DL (8.8-10.2); CREATININE FOR GFR 1.53 MG/DL (0.55-1.30); GLOMERULAR FILTRATION RATE 35.4 (>39); POTASSIUM SERUM 3.9 MEQ/L (3.5-5.1)
[2020-01-30 08:00] VITALS: BP 140/65
[2020-01-30] MEDS ORDERED: cefTRIAXone SOD 2 GM in D5W MINI-BAG PLUS 50 ML IV SCH (08:00)
[2020-01-30] MEDS: CALCIUM/VITAMIN D 500 MG TAB PO SCH (08:02)
[2020-01-30] MEDS: HYDROCORTISONE 10 MG TAB PO SCH (08:02)
[2020-01-30] MEDS ORDERED: CEFT2ADD INJ (08:43)
--- NOTE | 2020-01-30 10:39 | DS.PDOC ---
Discharge Summary General Date of Admission Jan 27, 2020 at 20:21 Date of Discharge 01/30/2020 Discharge Summary PROCEDURES PERFORMED DURING STAY: Removal of PICC line on 01/30/2020 Insertion of PICC line on 01/30/2020 ADMITTING DIAGNOSES / DISCHARGE DIAGNOSES: Sepsis - likely 2/2 Gram negative bacteremia - possibly 2/2 line infection; less likely 2/2 UTI / Pyelonephritis CKD Unlikely PNA 13 mm region of low density in R atrium; likely 2/2 artifact, unlikely 2/2 atrial thrombus Crohn's w small bowel ostomy Chronic HTN Vitamin D deficiency / Osteopenia Adrenal insufficiency GERD with hiatal hernia DVT prophylaxis COMPLICATIONS/CHIEF COMPLAINT: Fever / Chills HISTORY OF PRESENT ILLNESS: Patient is a 75-year-old female with a PMHx of Crohn' disease (s/p total colectomy, partial small bowel resection, ostomy; R arm PICC line for TPN), 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 Patient was admitted to the hospital service for further evaluation and treatment. HOSPITAL COURSE: Sepsis - likely 2/2 Gram negative bacteremia - possibly 2/2 line infection; less likely 2/2 UTI / Pyelonephritis - Patient has had a prior hospitalization for PICC line associated infection with Klebsiella on 01/01/2020 and was treated with IV antibiotics (Ceftriaxone) as an outpatient for the 2 weeks - Currently patient remains completely asymptomatic / hemodynamically stable / afebrile - Physical with no CVA tenderness - No lactic acidosis - Urine cultures negative - Blood cultures 01/26: Klebsiella pneumoniae; Blood cultures 01/28: Negative at 24 hours - CT abdomen / pelvis 01/26: 1. Extensive abdominal surgery status post total colectomy with abdominal peritoneal resection, significant small-bowel resection, and left-sided small bowel ostomy. No bowel obstruction. 2. Splenomegaly. 3. Multiple moderate to severe stenoses of the superior mesenteric artery, with continued segmental occlusion of a right-sided branch of the superior mesenteric artery, and continued segmental near occlusion of the inferior mesenteric artery with suspected trickle flow. 4. Cholelithiasis. 5. 13 mm region of low density in the right atrium, most likely artifact from contrast opacified and non contrast opacified blood. This is favored over right atrial thrombus, but right atrial thrombus is not completely excluded. This is better visualized than on 12/31/2019. 6. New small bilateral pleural effusions, larger on the left, with increased bibasilar atelectasis. 7. 7 mm right middle lobe pulmonary nodule which is new since the prior study, with adjacent 7 mm elongated nodule along the right major fissure which also appears new. 3 mm stable subpleural pulmonary lung nodule also nearby. - Will discharge with 2 weeks of Ceftriaxone 2g IV via home infusion - Outpatient follow up with Dr. cMduffie for repeat blood cultures CKD - Cr has increased form admission; Cr baseline of 1.1-1.3; Cr has remained stable - Advised patient to avoid nephrotoxic medications - Will avoid Losartan for now - Patient has been advised to continue lactated ringers that she has been doing as an outpatient Unlikely PNA - Clinically patient does not have any symptoms to suggest pneumonia. Denies any shortness of breath or productive cough - CXR 01/26: 1. Minimal left basilar versus pneumonia which is slightly in creased. 2. Either small left pleural effusion or left basilar pleural thickening. - c/w Antibiotics above 13 mm region of low density in R atrium; likely 2/2 artifact, less likely 2/2 atrial thrombus - ECHO complete - unofficial report without any evidence of thrombus - Will have outpatient follow up with PCP Crohn's w small bowel ostomy - c/w ostomy care - c/w Entyvio infusions as scheduled - Will hold TPN nutrition at this time (Re: bacteremia); will likely resume as outpatient Chronic HTN - BP well controlled - Will hold Losartan (re: RA) Vitamin D deficiency / Osteopenia - c/w Calcium and Vitamin D Adrenal insufficiency - c/w Hydrocortisone GERD with hiatal hernia - c/w Protonix DVT prophylaxis - c/w Lovenox DISCHARGE MEDICATIONS: Please see below. ALLERGIES: Please see below. PHYSICAL EXAMINATION ON DISCHARGE: Vitals (See below) General: Sitting up in chair, does not appear to be in any acute distress, AAOx3 HEENT: NC, AT CVS: +S1S2 Lungs: Air entry again remains fair bilaterally without evidence of rhonchi, crackles or wheezing Abdomen: Abdomen remains soft without any distention or tenderness, no CVA tenderness is appreciated Extremities: Lower extremities are free of any pitting edema, - Calf tenderness LABORATORY DATA: Please see below. ACTIVITY: [As tolerated]. DISCHARGE PLAN: Follow-up with primary care provider and Dr. Mcduffie within the next 7 days Remain compliant with treatment plan and medications Return to the ER if you experience any problems DISPOSITION: Home DISCHARGE CONDITION: [Stable]. TIME SPENT ON DISCHARGE: 35 minutes Vital Signs/I&Os Vital Signs Date Time Temp Pulse Resp B/P (MAP) Pulse Ox O2 Delivery O2 Flow Rate FiO2 01/30/20 08:00 98.2 82 18 140/65 (90) 98 Room Air I&O- Last 24 Hours up to 6 AM 01/30/20 06:00 Intake Total 1260 ml Output Total 4100 ml Balance -2840 ml Laboratory Data Labs 24H Laboratory Tests 2 01/29/20 19:28: Bedside Glucose (Misc Panel) 96 01/29/20 23:06: Bedside Glucose (Misc Panel) 94 01/30/20 06:46: Bedside Glucose (Misc Panel) 81L 01/30/20 06:50: Immature Granulocyte % (Auto) 0.5, Neutrophils (%) (Auto) 74.6H, Lymphocytes (%) (Auto) 14.5L, Monocytes (%) (Auto) 9.7H, Eosinophils (%) (Auto) 0.5, Basophils (%) (Auto) 0.2, Neutrophils # (Auto) 3.1, Lymphocytes # (Auto) 0.6L, Monocytes # (Auto) 0.4, Eosinophils # (Auto) 0.0, Basophils # (Auto) 0.0, Nucleated Red Blood Cells % (auto) 0.0, Anion Gap 4L, Glomerular Filtration Rate 35.4L, Calcium Level 7.7L, C-Reactive Protein, Quantitative 8.93H CBC/BMP Laboratory Tests 01/30/20 06:50 FSBS Laboratory Tests Test 01/29/20 19:28 01/29/20 23:06 01/30/20 06:46 Range/Units Bedside Glucose (Misc Panel) 96 94 81 83-110 MG/DL Microbiology Microbiology 01/29/20 Blood Culture - Preliminary, Resulted No growth after 24 hours . All specim... 01/29/20 Blood Culture - Preliminary, Resulted No growth after 24 hours . All specim... 01/28/20 Gastrointestinal Tract Panel (PCR) - Final, Complete 01/28/20 Urine Culture - Final, Complete 01/27/20 Blood Culture - Final, Complete Klebsiella Pneumoniae 01/27/20 Urine Culture - Final, Complete 01/27/20 Respiratory Virus Panel (PCR) (OLY) - Final, Complete 01/27/20 Blood Culture - Final, Complete Klebsiella Pneumoniae Discharge Medications Scheduled Calcium/Vitamin D (Calcium 500-Vit D3 200 Tablet) 1 Each Tablet, 500 MG PO DAILY, (Reported) Ceftriaxone Sodium (Ceftriaxone) 2 Gm Vial.port, 2 GM INJ DAILY Cholecalciferol (Vitamin D3) (Vitamin D3) 1,000 Unit Tablet, 2,000 UNITS PO Q2D, (Reported) Cyanocobalamin (Cyanocobalamin Injection) 1,000 Mcg/1 Ml Inj, 1,000 MCG IM QMONTH, (Reported) GIVEN IN PHYSICIANS OFFICE: GETS IN LAST WEEK OF THE MONTH (HAD AT END OF ) Ferrous Gluconate (Ferrous Gluconate) 324 Mg Tablet, 324 MG PO BID, (Reported) Hydrocortisone (Hydrocortisone) 10 Mg Tab, 10 MG PO BID, (Reported) Lactated Ringer's (Lactated Ringers) 1,000 Ml Iv.soln, 1,000 ML IV DAILY, (Reported) GIVEN AFTER TPN AND ADMINISTER OVER 6 HOURS; STILL RUNNING FROM HOME Pantoprazole Sodium (Pantoprazole Sodium) 40 Mg Tablet.dr, 40 MG PO DAILY, (Reported) Sodium/Pot/Mag/Calc/Chlor/Acet (TPN Electrolytes Vial) 1 Inj Inj, 1 INJ IV DAILY, (Reported) BEGIN AT 1800 AND ADMINISTER OVER 6 HOURS Vedolizumab (Entyvio) 300 Mg Vial, 300 MG IV ASDIRECTED, (Reported) EVERY 6 TO 8 WEEKS, DUE February: HAD LAST DOSE SOMETIME IN Scheduled PRN Diphenoxylate HCl/Atropine (Lomotil 2.5-0.025 mg Tablet) 1 Each Tablet, 1 TAB PO QID PRN for DIARRHEA, (Reported) Losartan Potassium (Losartan Potassium) 50 Mg Tablet, 50 MG PO DAILY PRN for HYPERTENSION, (Reported) Oxycodone HCl/Acetaminophen (Oxycodone-Acetaminophen 5-325) 1 Each Tablet, 0.5 TAB PO Q6H PRN for PAIN, (Reported) Allergies Coded Allergies: Sulfa (Sulfonamide Antibiotics) (Verified Allergy, Intermediate, RASH, 08/15/18) infliximab (Verified Allergy, Intermediate, ITCHING, RASH 20YRS AGO, 09/07/18) balsalazide (Verified Adverse Reaction, Mild, IRRITABILITY, 08/15/18) budesonide (Verified Adverse Reaction, Mild, GI UPSET, 08/15/18) CODY FISHMAN MD Jan 30, 2020 10:39
[2020-01-30] MEDS ORDERED: NS 1,000 ML IV ONE (10:45)
[2020-01-30] MEDS ORDERED: LIDOCAINE 1% MDV 20ML VIAL As Ordered ONE ×2 (11:35→16:06)
[2020-01-30] MEDS ORDERED: PERCOCET 5MG/325MG TAB As Ordered ONE (13:04)
[2020-01-30] MEDS: PERCOCET 5MG/325MG TAB PO PRN (13:10)
[2020-01-30 13:30] VITALS: BP 157/83
[2020-01-30 16:00] VITALS: BP 126/65
[2020-01-30] MEDS: ACETAMINOPHEN TAB 650MG DOSE (2X325MG) PO PRN (16:17)
[2020-01-30] MEDS ORDERED: ISOVUE-300 61% 50ML VIAL As Ordered ONE (17:14)
[2020-01-30 17:35] VITALS: BP 156/70
--- NOTE | 2020-01-30 18:13 | ECHO ---
DATE OF PROCEDURE: 01/28/2020 Age: 75 Gender: Female Height: 155 cm Weight: 65 kg REFERRING PHYSICIAN: Dr. Lunsford INDICATION: Atrial thrombus MEASUREMENTS: LA 3.5 IVS 1.2 LV 3.9 LVPW 1.1 Aorta 3.2 Mitral E wave velocity 58, A wave 105 E prime 5.7 E prime lateral 9.9 FINDINGS: The study is of fair technical quality with difficult visualization. The patient is in sinus rhythm with ventricular rate around 100 beats per minute. Left ventricle is normal size and overall normal systolic function. I estimate ejection fraction (EF) around 70%. Mild left ventricular hypertrophy (LVH) is present. Right ventricle appears normal. Both atria appear grossly normal size. Aortic valve has prominent sclerosis, but mobility is preserved. I do not appreciate any distinct vegetations. There are also degenerative abnormalities of mitral valve with prominent mitral annular calcifications, but mobility of leaflets is preserved. Tricuspid valve was poorly visualized but grossly appears normal. Same applies for pulmonic valve. No pericardial effusion is noted. Inferior vena was not well seen. Aortic root and aortic arch were poorly visualized. Doppler interrogation reveals competency of all four valves without significant stenosis or insufficiency of either. Mitral inflow pattern and tissue Doppler imaging of mitral annulus reveal grade 1 diastolic dysfunction. CONCLUSIONS: 1. Study is of fair technical quality. The patient is in sinus rhythm. 2. Normal LV size with mild left ventricular hypertrophy (LVH), hyperdynamic LV systolic function and grade 1 diastolic dysfunction. 3. Prominent aortic sclerosis, but without significant stenosis and insufficiency. 4. Degenerative abnormalities of mitral valve, but valve is functionally competent. 5. No significant tricuspid and pulmonic disease. 6. Unable to estimate central venous pressure. 7. No obvious abnormalities visualized in either atrium. COMMENTS: SBE prophylaxis is not recommended. MTDD
--- NOTE | 2020-02-04 08:33 | REP ---
PICC LINE INSERTION WITH SITE-LEMUEL The procedure was performed by KRISS Mota, under the direct supervision of Dr. Moss. The risks and benefits of the procedure were explained to the patient and an informed consent was obtained both verbally and written. Directly prior to the start of the procedure, a formal time-out was done in the procedure room. The right lateral brachial vein was localized using ultrasound guidance. The skin was prepped and draped in a sterile fashion. Approximately 1 mL of 1% Lidocaine 10 mg/mL was used as a local anesthetic. Using ultrasound guidance, the lateral brachial vein was cannulated and a 0.018 guidewire was inserted and advanced to the superior vena cava (SVC) using fluoroscopic guidance. The needle was removed and a 5.5 Dutch dilator and Peel-Away sheath was inserted over the guidewire. A 5.5 Dutch dual-lumen catheter was cut to a length of 31 cm. The dilator was removed and the catheter was inserted over the guidewire with the tip ending at the superior vena cava (SVC). The Peel-Away sheath was removed, and the catheter was flushed with heparinized saline as per hospital protocol. The catheter was affixed to the skin and a sterile dressing was applied. The patient tolerated this procedure extremely well, and there were no immediate complications. The patient was discharged back up to the unit. 1.2 minutes of fluoroscopy time was utilized for this procedure. KIZZY
== END 2020-01-30 18:30 | disposition home health service (06) | DRG 314 ==
LOC: M ED 11:47 → EDBD 11:47 → M ED INP 20:21 → M PCU 01-28 00:02
PROVIDERS: ADMIT Internal Medicine; ATTEND Internal Medicine
PROC: 02HV33Z Insertion of Infusion Device into Superior Vena Cava, Percutaneous Approach (ICD-10-PCS; principal; 2020-01-30 11:30)
DX: T82.7XXA Infection and inflammatory reaction due to other cardiac and vascular devices, implants and grafts, initial encounter (principal); A41.59 Other Gram-negative sepsis; N17.9 Acute kidney failure, unspecified; K50.90 Crohn's disease, unspecified, without complications; E27.40 Unspecified adrenocortical insufficiency; E55.9 Vitamin D deficiency, unspecified; N18.30 Chronic kidney disease, stage 3 unspecified; R91.1 Solitary pulmonary nodule; D50.9 Iron deficiency anemia, unspecified; K21.9 Gastro-esophageal reflux disease without esophagitis; K44.9 Diaphragmatic hernia without obstruction or gangrene; E53.8 Deficiency of other specified B group vitamins; I12.9 Hypertensive chronic kidney disease with stage 1 through stage 4 chronic kidney disease, or unspecified chronic kidney disease; Z79.899 Other long term (current) drug therapy; Z88.2 Allergy status to sulfonamides; Z88.8 Allergy status to other drugs, medicaments and biological substances; Y84.8 Other medical procedures as the cause of abnormal reaction of the patient, or of later complication, without mention of misadventure at the time of the procedure

== ENCOUNTER → 2020-02-03 | Outpatient (REF) | payer MEDICARE ==
[~2020-02-03] MED LIST changes: +CALCD50TA PO; +CEFT2ADD INJ; +FERR325T16 PO; +LOSA50TA88 PO
[2020-02-03 15:04] LABS: HEMATOCRIT 40.2 % (36.0-47.0); HEMOGLOBIN 12.5 g/dl (12.0-15.5); MEAN CORPUSCULAR HEMOGLOBIN 31.6 pg (27.0-33.0); MEAN CORPUSCULAR HGB CONC 31.1 g/dl (32.0-36.5); MEAN CORPUSCULAR VOLUME 101.5 fl (80.0-96.0); PLATELET COUNT, AUTOMATED 263 10^3/uL (150-450); RED BLOOD COUNT 3.96 10^6/uL (4.00-5.40); WHITE BLOOD COUNT 5.3 10^3/uL (4.0-10.0)
[2020-02-03 16:52] LABS: CALCIUM LEVEL 9.5 MG/DL (8.8-10.2); CREATININE FOR GFR 1.29 MG/DL (0.55-1.30); GLOMERULAR FILTRATION RATE 43.1 (>39); MAGNESIUM LEVEL 2.4 MG/DL (1.8-2.4); PHOSPHORUS LEVEL 3.9 MG/DL (2.5-4.9); POTASSIUM SERUM 4.4 MEQ/L (3.5-5.1)
== END ==
LOC: M SHH 14:35
PROVIDERS: ATTEND Internal Medicine Gastroenterology
DX: E44.0 Moderate protein-calorie malnutrition (principal); K50.814 Crohn's disease of both small and large intestine with abscess

== ENCOUNTER → 2020-02-10 | Outpatient (REF) | payer MEDICARE ==
[2020-02-10 13:48] LABS: HEMATOCRIT 35.1 % (36.0-47.0); HEMOGLOBIN 10.9 g/dl (12.0-15.5); MEAN CORPUSCULAR HEMOGLOBIN 31.7 pg (27.0-33.0); MEAN CORPUSCULAR HGB CONC 31.1 g/dl (32.0-36.5); PLATELET COUNT, AUTOMATED 171 10^3/uL (150-450); RED BLOOD COUNT 3.44 10^6/uL (4.00-5.40); WHITE BLOOD COUNT 6.1 10^3/uL (4.0-10.0)
[2020-02-10 16:26] LABS: CALCIUM LEVEL 9.3 MG/DL (8.8-10.2); CREATININE FOR GFR 1.15 MG/DL (0.55-1.30); GLOMERULAR FILTRATION RATE 49.2 (>39); MAGNESIUM LEVEL 2.1 MG/DL (1.8-2.4); POTASSIUM SERUM 4.6 MEQ/L (3.5-5.1); PREALBUMIN 33.5 MG/DL (20.0-40.0)
== END ==
LOC: M SHH 13:09
PROVIDERS: ATTEND Internal Medicine Gastroenterology
DX: E44.0 Moderate protein-calorie malnutrition (principal); K50.814 Crohn's disease of both small and large intestine with abscess
CPT/HCPCS: 80048; 83735; 84100; 84134; 85027; G0463

== ENCOUNTER → 2020-02-17 | Outpatient (REF) | payer MEDICARE ==
[2020-02-17 10:58] LABS: HEMATOCRIT 35.9 % (36.0-47.0); HEMOGLOBIN 11.6 g/dl (12.0-15.5); MEAN CORPUSCULAR HEMOGLOBIN 32.3 pg (27.0-33.0); MEAN CORPUSCULAR HGB CONC 32.3 g/dl (32.0-36.5); PLATELET COUNT, AUTOMATED 169 10^3/uL (150-450); RED BLOOD COUNT 3.59 10^6/uL (4.00-5.40); WHITE BLOOD COUNT 6.1 10^3/uL (4.0-10.0)
[2020-02-17 11:54] LABS: BLOOD UREA NITROGEN 31 MG/DL (7-18); CARBON DIOXIDE LEVEL 28 MEQ/L (21-32); CHLORIDE LEVEL 108 MEQ/L (98-107); CREATININE FOR GFR 0.93 MG/DL (0.55-1.30); GLOMERULAR FILTRATION RATE > 60.0 (>39); GLUCOSE, FASTING 46 MG/DL (70-100); MAGNESIUM LEVEL 1.9 MG/DL (1.8-2.4); PHOSPHORUS LEVEL 3.5 MG/DL (2.5-4.9); POTASSIUM SERUM 3.8 MEQ/L (3.5-5.1); PREALBUMIN 34.1 MG/DL (20.0-40.0); SODIUM LEVEL 141 MEQ/L (136-145)
== END ==
LOC: M SHH 10:28
PROVIDERS: ATTEND Internal Medicine Gastroenterology
DX: E44.0 Moderate protein-calorie malnutrition (principal); K50.814 Crohn's disease of both small and large intestine with abscess; B96.1 Klebsiella pneumoniae [K. pneumoniae] as the cause of diseases classified elsewhere

== ENCOUNTER → 2020-02-17 | Outpatient (REF) | payer MEDICARE | LOC: M SHH 10:33 | PROVIDERS: ATTEND Internal Medicine Infectious Disease | DX: B96.1 Klebsiella pneumoniae [K. pneumoniae] as the cause of diseases classified elsewhere (principal) ==

== ENCOUNTER → 2020-02-24 | Outpatient (CLI) | payer MEDICARE | LOC: M LAB 13:34 | PROVIDERS: ATTEND Internal Medicine Gastroenterology | DX: K50.814 Crohn's disease of both small and large intestine with abscess (principal); K63.2 Fistula of intestine; E44.0 Moderate protein-calorie malnutrition ==

== ENCOUNTER → 2020-02-24 | Outpatient (REF) | payer MEDICARE ==
[2020-02-24 15:12] LABS: HEMATOCRIT 38.6 % (36.0-47.0); HEMOGLOBIN 12.3 g/dl (12.0-15.5); MEAN CORPUSCULAR HEMOGLOBIN 32.1 pg (27.0-33.0); MEAN CORPUSCULAR HGB CONC 31.9 g/dl (32.0-36.5); MEAN CORPUSCULAR VOLUME 100.8 fl (80.0-96.0); PLATELET COUNT, AUTOMATED 177 10^3/uL (150-450); RED BLOOD COUNT 3.83 10^6/uL (4.00-5.40); WHITE BLOOD COUNT 6.3 10^3/uL (4.0-10.0)
[2020-02-24 19:37] LABS: CALCIUM LEVEL 9.4 MG/DL (8.8-10.2); CREATININE FOR GFR 1.2 MG/DL (0.55-1.30); GLOMERULAR FILTRATION RATE 46.9 (>39); PHOSPHORUS LEVEL 3.9 MG/DL (2.5-4.9); POTASSIUM SERUM 3.7 MEQ/L (3.5-5.1); PREALBUMIN 33.8 MG/DL (20.0-40.0)
== END ==
LOC: M SHH 10:32
PROVIDERS: ATTEND Internal Medicine Gastroenterology
DX: E44.0 Moderate protein-calorie malnutrition (principal); K50.814 Crohn's disease of both small and large intestine with abscess

== ENCOUNTER → 2020-03-02 | Outpatient (REF) | payer MEDICARE ==
[2020-03-02 13:57] LABS: HEMATOCRIT 40.6 % (36.0-47.0); HEMOGLOBIN 12.7 g/dl (12.0-15.5); MEAN CORPUSCULAR HEMOGLOBIN 31.5 pg (27.0-33.0); MEAN CORPUSCULAR HGB CONC 31.3 g/dl (32.0-36.5); MEAN CORPUSCULAR VOLUME 100.7 fl (80.0-96.0); PLATELET COUNT, AUTOMATED 184 10^3/uL (150-450); RED BLOOD COUNT 4.03 10^6/uL (4.00-5.40); WHITE BLOOD COUNT 6.7 10^3/uL (4.0-10.0)
[2020-03-02 14:39] LABS: CALCIUM LEVEL 9.4 MG/DL (8.8-10.2); CREATININE FOR GFR 1.18 MG/DL (0.55-1.30); GLOMERULAR FILTRATION RATE 47.8 (>39); MAGNESIUM LEVEL 2.1 MG/DL (1.8-2.4); PHOSPHORUS LEVEL 4.5 MG/DL (2.5-4.9); POTASSIUM SERUM 3.7 MEQ/L (3.5-5.1); PREALBUMIN 35.3 MG/DL (20.0-40.0)
== END ==
LOC: M SHH 13:41
PROVIDERS: ATTEND Internal Medicine Gastroenterology
DX: E44.0 Moderate protein-calorie malnutrition (principal); K50.814 Crohn's disease of both small and large intestine with abscess

== ENCOUNTER 2020-03-06 08:38 | Outpatient (CLI) | payer MEDICARE ==
[~2020-03-06] VITALS: Ht 154.9 cm; Wt 57.2 kg
[2020-03-06 08:58] VITALS: BP 143/85
[2020-03-06] MEDS ORDERED: SODIUM CHLORIDE 0.9% INJ 10 ML SYR IV PRN (09:00)
[2020-03-06] MEDS ORDERED: VEDOLIZUMAB 300 MG in NS 250 ML IV ONE (09:00)
[2020-03-06 09:04] VITALS: BP 143/85
[2020-03-06 10:00] VITALS: BP 162/77
[2020-03-06 10:14] VITALS: BP 162/77
[2020-03-06] MEDS ORDERED: SODIUM CHLORIDE 0.9% INJ 10 ML SYR IV SCH (18:00)
== END 2020-03-06 10:10 | disposition home or self-care (01) ==
LOC: M INFU 08:38
PROVIDERS: ATTEND Internal Medicine Gastroenterology
DX: K50.90 Crohn's disease, unspecified, without complications (principal); Z88.2 Allergy status to sulfonamides; Z88.8 Allergy status to other drugs, medicaments and biological substances
CPT/HCPCS: 96365; 96372; J1642; J3420

== ENCOUNTER → 2020-03-09 | Outpatient (REF) | payer MEDICARE ==
[2020-03-09 14:56] LABS: HEMATOCRIT 40.1 % (36.0-47.0); HEMOGLOBIN 12.9 g/dl (12.0-15.5); MEAN CORPUSCULAR HEMOGLOBIN 31.9 pg (27.0-33.0); MEAN CORPUSCULAR HGB CONC 32.2 g/dl (32.0-36.5); PLATELET COUNT, AUTOMATED 179 10^3/uL (150-450); RED BLOOD COUNT 4.05 10^6/uL (4.00-5.40); WHITE BLOOD COUNT 4.9 10^3/uL (4.0-10.0)
[2020-03-09 15:30] LABS: CALCIUM LEVEL 9.1 MG/DL (8.8-10.2); CREATININE FOR GFR 1.25 MG/DL (0.55-1.30); GLOMERULAR FILTRATION RATE 44.7 (>39); MAGNESIUM LEVEL 2.1 MG/DL (1.8-2.4); PHOSPHORUS LEVEL 4.2 MG/DL (2.5-4.9); POTASSIUM SERUM 3.9 MEQ/L (3.5-5.1); PREALBUMIN 36.9 MG/DL (20.0-40.0)
== END ==
LOC: M SHH 14:15 → M LAB REF 14:15
PROVIDERS: ATTEND Internal Medicine Gastroenterology
DX: E44.0 Moderate protein-calorie malnutrition (principal); K50.814 Crohn's disease of both small and large intestine with abscess

== ENCOUNTER → 2020-03-16 | Outpatient (REF) | payer MEDICARE ==
[2020-03-16 14:21] LABS: HEMOGLOBIN 12.6 g/dl (12.0-15.5); MEAN CORPUSCULAR HEMOGLOBIN 31.7 pg (27.0-33.0); MEAN CORPUSCULAR HGB CONC 32.3 g/dl (32.0-36.5); PLATELET COUNT, AUTOMATED 156 10^3/uL (150-450); RED BLOOD COUNT 3.98 10^6/uL (4.00-5.40); WHITE BLOOD COUNT 5.4 10^3/uL (4.0-10.0)
[2020-03-16 15:25] LABS: CALCIUM LEVEL 9.1 MG/DL (8.8-10.2); CREATININE FOR GFR 1.18 MG/DL (0.55-1.30); GLOMERULAR FILTRATION RATE 47.8 (>39); MAGNESIUM LEVEL 2.1 MG/DL (1.8-2.4); PHOSPHORUS LEVEL 4.3 MG/DL (2.5-4.9); POTASSIUM SERUM 4.7 MEQ/L (3.5-5.1); PREALBUMIN 35.3 MG/DL (20.0-40.0)
== END ==
LOC: M SHH 13:52 → M LAB REF 13:52
PROVIDERS: ATTEND Internal Medicine Gastroenterology
DX: E44.0 Moderate protein-calorie malnutrition (principal); K50.814 Crohn's disease of both small and large intestine with abscess

== ENCOUNTER → 2020-03-23 | Outpatient (REF) | payer MEDICARE ==
[2020-03-23 12:33] LABS: HEMATOCRIT 38.4 % (36.0-47.0); HEMOGLOBIN 12.4 g/dl (12.0-15.5); MEAN CORPUSCULAR HGB CONC 32.3 g/dl (32.0-36.5); PLATELET COUNT, AUTOMATED 153 10^3/uL (150-450); RED BLOOD COUNT 3.88 10^6/uL (4.00-5.40); WHITE BLOOD COUNT 4.3 10^3/uL (4.0-10.0)
[2020-03-23 12:51] LABS: CALCIUM LEVEL 8.9 MG/DL (8.8-10.2); GLOMERULAR FILTRATION RATE 57.9 (>39); PREALBUMIN 32.5 MG/DL (20.0-40.0)
== END ==
LOC: M SHH 12:03
PROVIDERS: ATTEND Internal Medicine Gastroenterology
DX: E44.0 Moderate protein-calorie malnutrition (principal); K50.814 Crohn's disease of both small and large intestine with abscess

== ENCOUNTER → 2020-04-02 | Outpatient (REF) | payer MEDICARE ==
[2020-04-02 14:36] LABS: HEMOGLOBIN 13.5 g/dl (12.0-15.5); MEAN CORPUSCULAR HEMOGLOBIN 31.3 pg (27.0-33.0); MEAN CORPUSCULAR HGB CONC 32.1 g/dl (32.0-36.5); MEAN CORPUSCULAR VOLUME 97.4 fl (80.0-96.0); PLATELET COUNT, AUTOMATED 186 10^3/uL (150-450); RED BLOOD COUNT 4.31 10^6/uL (4.00-5.40); WHITE BLOOD COUNT 5.2 10^3/uL (4.0-10.0)
[2020-04-02 14:55] LABS: CREATININE FOR GFR 1.27 MG/DL (0.55-1.30); GLOMERULAR FILTRATION RATE 43.9 (>39); MAGNESIUM LEVEL 2.2 MG/DL (1.8-2.4); PHOSPHORUS LEVEL 3.8 MG/DL (2.5-4.9); POTASSIUM SERUM 4.5 MEQ/L (3.5-5.1); PREALBUMIN 27.3 MG/DL (20.0-40.0)
== END ==
LOC: M SHH 14:19
PROVIDERS: ATTEND Internal Medicine Gastroenterology
DX: E44.0 Moderate protein-calorie malnutrition (principal); K50.814 Crohn's disease of both small and large intestine with abscess

== ENCOUNTER → 2020-04-13 | Outpatient (REF) | payer MEDICARE ==
[2020-04-13 13:42] LABS: MEAN CORPUSCULAR HEMOGLOBIN 31.4 pg (27.0-33.0); MEAN CORPUSCULAR HGB CONC 32.5 g/dl (32.0-36.5); MEAN CORPUSCULAR VOLUME 96.6 fl (80.0-96.0); PLATELET COUNT, AUTOMATED 180 10^3/uL (150-450); RED BLOOD COUNT 4.14 10^6/uL (4.00-5.40); WHITE BLOOD COUNT 4.2 10^3/uL (4.0-10.0)
[2020-04-13 14:21] LABS: CALCIUM LEVEL 9.1 MG/DL (8.8-10.2); CREATININE FOR GFR 1.25 MG/DL (0.55-1.30); GLOMERULAR FILTRATION RATE 44.7 (>39); POTASSIUM SERUM 4.1 MEQ/L (3.5-5.1); PREALBUMIN 26.6 MG/DL (20.0-40.0)
== END ==
LOC: M SHH 13:11
PROVIDERS: ATTEND Internal Medicine Gastroenterology
DX: E44.0 Moderate protein-calorie malnutrition (principal); K50.018 Crohn's disease of small intestine with other complication; K63.2 Fistula of intestine

== ENCOUNTER → 2020-04-20 | Outpatient (REF) | payer MEDICARE ==
[2020-04-20 15:14] LABS: HEMATOCRIT 39.9 % (36.0-47.0); HEMOGLOBIN 13.1 g/dl (12.0-15.5); MEAN CORPUSCULAR HEMOGLOBIN 32.1 pg (27.0-33.0); MEAN CORPUSCULAR HGB CONC 32.8 g/dl (32.0-36.5); MEAN CORPUSCULAR VOLUME 97.8 fl (80.0-96.0); PLATELET COUNT, AUTOMATED 170 10^3/uL (150-450); RED BLOOD COUNT 4.08 10^6/uL (4.00-5.40); WHITE BLOOD COUNT 3.9 10^3/uL (4.0-10.0)
[2020-04-20 15:33] LABS: CALCIUM LEVEL 8.8 MG/DL (8.8-10.2); CREATININE FOR GFR 1.25 MG/DL (0.55-1.30); GLOMERULAR FILTRATION RATE 44.7 (>39); PHOSPHORUS LEVEL 3.4 MG/DL (2.5-4.9); POTASSIUM SERUM 4.3 MEQ/L (3.5-5.1)
== END ==
LOC: M SHH 14:39
PROVIDERS: ATTEND Internal Medicine Gastroenterology
DX: K50.018 Crohn's disease of small intestine with other complication (principal); E44.0 Moderate protein-calorie malnutrition

== ENCOUNTER → 2020-04-27 | Outpatient (REF) | payer MEDICARE ==
[2020-04-27 14:02] LABS: HEMATOCRIT 39.2 % (36.0-47.0); HEMOGLOBIN 12.7 g/dl (12.0-15.5); MEAN CORPUSCULAR HEMOGLOBIN 31.5 pg (27.0-33.0); MEAN CORPUSCULAR HGB CONC 32.4 g/dl (32.0-36.5); MEAN CORPUSCULAR VOLUME 97.3 fl (80.0-96.0); PLATELET COUNT, AUTOMATED 170 10^3/uL (150-450); RED BLOOD COUNT 4.03 10^6/uL (4.00-5.40); WHITE BLOOD COUNT 4.2 10^3/uL (4.0-10.0)
[2020-04-27 16:25] LABS: CREATININE FOR GFR 1.1 MG/DL (0.55-1.30); GLOMERULAR FILTRATION RATE 51.8 (>39); MAGNESIUM LEVEL 1.9 MG/DL (1.8-2.4); PHOSPHORUS LEVEL 3.3 MG/DL (2.5-4.9); POTASSIUM SERUM 4.1 MEQ/L (3.5-5.1)
== END ==
LOC: M SHH 13:55 → M LAB REF 13:55
PROVIDERS: ATTEND Internal Medicine Gastroenterology
DX: K50.018 Crohn's disease of small intestine with other complication (principal); E44.0 Moderate protein-calorie malnutrition

== ENCOUNTER 2020-05-01 14:41 | Outpatient (CLI) | payer MEDICARE ==
[~2020-05-01] VITALS: Ht 154.9 cm; Wt 65.9 kg
[~2020-05-01 14:41] MED LIST changes: +SODIUM CHLORIDE 0.9% INJ 10 ML SYR IV PRN; +SODIUM CHLORIDE 0.9% INJ 10 ML SYR IV SCH
[2020-05-01 14:50] VITALS: BP 130/70
[2020-05-01] MEDS ORDERED: VEDOLIZUMAB 300 MG in NS 250 ML IV ONE (15:00)
[2020-05-01 16:00] VITALS: BP 138/90
== END 2020-05-01 16:00 | disposition home or self-care (01) ==
LOC: M INFU 14:41
PROVIDERS: ATTEND Internal Medicine Gastroenterology
DX: K50.90 Crohn's disease, unspecified, without complications (principal); Z88.2 Allergy status to sulfonamides; Z88.8 Allergy status to other drugs, medicaments and biological substances

== ENCOUNTER → 2020-05-04 | Outpatient (REF) | payer MEDICARE ==
[~2020-05-04] MED LIST changes: -SODIUM CHLORIDE 0.9% INJ 10 ML SYR IV PRN; -SODIUM CHLORIDE 0.9% INJ 10 ML SYR IV SCH
[2020-05-04 14:45] LABS: HEMATOCRIT 41.3 % (36.0-47.0); HEMOGLOBIN 13.1 g/dl (12.0-15.5); MEAN CORPUSCULAR HEMOGLOBIN 31.3 pg (27.0-33.0); MEAN CORPUSCULAR HGB CONC 31.7 g/dl (32.0-36.5); MEAN CORPUSCULAR VOLUME 98.8 fl (80.0-96.0); PLATELET COUNT, AUTOMATED 176 10^3/uL (150-450); RED BLOOD COUNT 4.18 10^6/uL (4.00-5.40); WHITE BLOOD COUNT 4.6 10^3/uL (4.0-10.0)
[2020-05-04 15:17] LABS: CREATININE FOR GFR 1.19 MG/DL (0.55-1.30); GLOMERULAR FILTRATION RATE 47.3 (>39); POTASSIUM SERUM 4.5 MEQ/L (3.5-5.1); PREALBUMIN 24.8 MG/DL (20.0-40.0)
== END ==
LOC: M SHH 14:36
PROVIDERS: ATTEND Internal Medicine Gastroenterology
DX: E44.0 Moderate protein-calorie malnutrition (principal); K50.018 Crohn's disease of small intestine with other complication; K63.2 Fistula of intestine

== ENCOUNTER → 2020-05-11 | Outpatient (REF) | payer MEDICARE ==
[~2020-05-11] MED LIST changes: -MAG400TA PO; +MAGN400T35 PO
[2020-05-11 15:42] LABS: HEMATOCRIT 41.2 % (36.0-47.0); HEMOGLOBIN 13.2 g/dl (12.0-15.5); MEAN CORPUSCULAR HEMOGLOBIN 31.4 pg (27.0-33.0); MEAN CORPUSCULAR VOLUME 98.1 fl (80.0-96.0); PLATELET COUNT, AUTOMATED 173 10^3/uL (150-450); WHITE BLOOD COUNT 5.3 10^3/uL (4.0-10.0)
[2020-05-11 16:09] LABS: CALCIUM LEVEL 8.8 MG/DL (8.8-10.2); CREATININE FOR GFR 1.18 MG/DL (0.55-1.30); GLOMERULAR FILTRATION RATE 47.8 (>39); POTASSIUM SERUM 3.9 MEQ/L (3.5-5.1); PREALBUMIN 23.2 MG/DL (20.0-40.0)
== END ==
LOC: M SHH 14:29
PROVIDERS: ATTEND Internal Medicine Gastroenterology
DX: E44.0 Moderate protein-calorie malnutrition (principal); K50.018 Crohn's disease of small intestine with other complication; K63.2 Fistula of intestine

== ENCOUNTER → 2020-05-18 | Outpatient (REF) | payer MEDICARE ==
[2020-05-18 12:14] LABS: BASO % 0.2 % (0.0-1.0); EOS # 0.1 10^3/uL (0.0-0.5); HEMOGLOBIN 12.9 g/dl (12.0-15.5); LYMPH # 0.5 10^3/uL (1.5-5.0); LYMPH % 11.3 % (24.0-44.0); MEAN CORPUSCULAR HEMOGLOBIN 31.1 pg (27.0-33.0); MEAN CORPUSCULAR HGB CONC 32.3 g/dl (32.0-36.5); MEAN CORPUSCULAR VOLUME 96.4 fl (80.0-96.0); MONO # 0.3 10^3/uL (0.0-0.8); MONO % 7.6 % (0.0-5.0); NEUTROPHILS # 3.5 10^3/uL (1.5-8.5); NEUTROPHILS % 78.5 % (36.0-66.0); PLATELET COUNT, AUTOMATED 159 10^3/uL (150-450); RED BLOOD COUNT 4.15 10^6/uL (4.00-5.40); WHITE BLOOD COUNT 4.5 10^3/uL (4.0-10.0)
[2020-05-18 12:36] LABS: CALCIUM LEVEL 9.2 MG/DL (8.8-10.2); CREATININE FOR GFR 1.05 MG/DL (0.55-1.30); GLOMERULAR FILTRATION RATE 54.7 (>39); MAGNESIUM LEVEL 1.9 MG/DL (1.8-2.4); PHOSPHORUS LEVEL 3.9 MG/DL (2.5-4.9); POTASSIUM SERUM 4.4 MEQ/L (3.5-5.1); URIC ACID 5.7 MG/DL (2.6-6.0)
[2020-05-18 12:47] LABS: PTH INTACT 179.5 PG/ML (18.5-88.0)
== END ==
LOC: M SHH 11:58
PROVIDERS: ATTEND Internal Medicine Nephrology
DX: N18.32 Chronic kidney disease, stage 3b (principal)

== ENCOUNTER → 2020-05-18 | Outpatient (REF) | payer MEDICARE ==
[2020-05-18 12:14] LABS: HEMATOCRIT 39.7 % (36.0-47.0); MEAN CORPUSCULAR HEMOGLOBIN 31.6 pg (27.0-33.0); MEAN CORPUSCULAR HGB CONC 32.7 g/dl (32.0-36.5); MEAN CORPUSCULAR VOLUME 96.6 fl (80.0-96.0); PLATELET COUNT, AUTOMATED 152 10^3/uL (150-450); RED BLOOD COUNT 4.11 10^6/uL (4.00-5.40); WHITE BLOOD COUNT 4.6 10^3/uL (4.0-10.0)
[2020-05-18 12:48] LABS: CALCIUM LEVEL 9.3 MG/DL (8.8-10.2); CREATININE FOR GFR 1.05 MG/DL (0.55-1.30); GLOMERULAR FILTRATION RATE 54.7 (>39); MAGNESIUM LEVEL 2.1 MG/DL (1.8-2.4); PHOSPHORUS LEVEL 4.2 MG/DL (2.5-4.9); POTASSIUM SERUM 4.3 MEQ/L (3.5-5.1); PREALBUMIN 24.4 MG/DL (20.0-40.0)
== END ==
LOC: M SHH 11:55
PROVIDERS: ATTEND Internal Medicine Gastroenterology
DX: K50.018 Crohn's disease of small intestine with other complication (principal); E44.0 Moderate protein-calorie malnutrition; Z93.2 Ileostomy status; N18.32 Chronic kidney disease, stage 3b

== ENCOUNTER → 2020-05-25 | Outpatient (REF) | payer MEDICARE ==
[~2020-05-25] MED LIST changes: +MAG400TA PO; -MAGN400T35 PO
[2020-05-25 15:08] LABS: HEMATOCRIT 39.1 % (36.0-47.0); HEMOGLOBIN 12.7 g/dl (12.0-15.5); MEAN CORPUSCULAR HEMOGLOBIN 31.8 pg (27.0-33.0); MEAN CORPUSCULAR HGB CONC 32.5 g/dl (32.0-36.5); PLATELET COUNT, AUTOMATED 160 10^3/uL (150-450); RED BLOOD COUNT 3.99 10^6/uL (4.00-5.40); WHITE BLOOD COUNT 4.8 10^3/uL (4.0-10.0)
[2020-05-25 15:30] LABS: CALCIUM LEVEL 9.2 MG/DL (8.8-10.2); CREATININE FOR GFR 1.06 MG/DL (0.55-1.30); GLOMERULAR FILTRATION RATE 54.1 (>39); MAGNESIUM LEVEL 1.9 MG/DL (1.8-2.4); PHOSPHORUS LEVEL 3.7 MG/DL (2.5-4.9); POTASSIUM SERUM 3.9 MEQ/L (3.5-5.1)
== END ==
LOC: M SHH 14:53
PROVIDERS: ATTEND Internal Medicine Gastroenterology
DX: K50.018 Crohn's disease of small intestine with other complication (principal); E44.0 Moderate protein-calorie malnutrition; Z93.2 Ileostomy status

== ENCOUNTER → 2020-06-01 | Outpatient (REF) | payer MEDICARE ==
[~2020-06-01] MED LIST changes: -MAG400TA PO; +MAGN400T35 PO
[2020-06-01 13:28] LABS: HEMATOCRIT 39.6 % (36.0-47.0); HEMOGLOBIN 12.9 g/dl (12.0-15.5); MEAN CORPUSCULAR HEMOGLOBIN 31.9 pg (27.0-33.0); MEAN CORPUSCULAR HGB CONC 32.6 g/dl (32.0-36.5); MEAN CORPUSCULAR VOLUME 97.8 fl (80.0-96.0); PLATELET COUNT, AUTOMATED 163 10^3/uL (150-450); RED BLOOD COUNT 4.05 10^6/uL (4.00-5.40)
[2020-06-01 14:27] LABS: CALCIUM LEVEL 9.2 MG/DL (8.8-10.2); CREATININE FOR GFR 1.2 MG/DL (0.55-1.30); GLOMERULAR FILTRATION RATE 46.9 (>39); MAGNESIUM LEVEL 1.8 MG/DL (1.8-2.4); PHOSPHORUS LEVEL 4.1 MG/DL (2.5-4.9)
[2020-06-01 16:19] LABS: PREALBUMIN 22.2 MG/DL (20.0-40.0)
== END ==
LOC: M SHH 12:24
PROVIDERS: ATTEND Internal Medicine Gastroenterology
DX: K50.018 Crohn's disease of small intestine with other complication (principal); E44.0 Moderate protein-calorie malnutrition; Z93.2 Ileostomy status

== ENCOUNTER → 2020-06-08 | Outpatient (REF) | payer MEDICARE ==
[2020-06-08 12:31] LABS: HEMATOCRIT 41.1 % (36.0-47.0); HEMOGLOBIN 13.3 g/dl (12.0-15.5); MEAN CORPUSCULAR HEMOGLOBIN 31.5 pg (27.0-33.0); MEAN CORPUSCULAR HGB CONC 32.4 g/dl (32.0-36.5); MEAN CORPUSCULAR VOLUME 97.4 fl (80.0-96.0); PLATELET COUNT, AUTOMATED 162 10^3/uL (150-450); RED BLOOD COUNT 4.22 10^6/uL (4.00-5.40); WHITE BLOOD COUNT 5.1 10^3/uL (4.0-10.0)
[2020-06-08 13:02] LABS: CALCIUM LEVEL 9.1 MG/DL (8.8-10.2); CREATININE FOR GFR 1.1 MG/DL (0.55-1.30); GLOMERULAR FILTRATION RATE 51.8 (>39); MAGNESIUM LEVEL 1.9 MG/DL (1.8-2.4); PHOSPHORUS LEVEL 3.7 MG/DL (2.5-4.9); POTASSIUM SERUM 3.9 MEQ/L (3.5-5.1); PREALBUMIN 21.7 MG/DL (20.0-40.0)
== END ==
LOC: M SHH 12:01
PROVIDERS: ATTEND Internal Medicine Gastroenterology
DX: K50.018 Crohn's disease of small intestine with other complication (principal); E44.0 Moderate protein-calorie malnutrition; Z93.2 Ileostomy status

== ENCOUNTER → 2020-06-15 | Outpatient (REF) | payer MEDICARE ==
[~2020-06-15] MED LIST changes: +COVI100V IM; +[UNRECOGNIZED DRUG - OTHER] PO
[2020-06-15 12:55] LABS: HEMATOCRIT 40.4 % (36.0-47.0); HEMOGLOBIN 13.1 g/dl (12.0-15.5); MEAN CORPUSCULAR HGB CONC 32.4 g/dl (32.0-36.5); MEAN CORPUSCULAR VOLUME 98.5 fl (80.0-96.0); PLATELET COUNT, AUTOMATED 161 10^3/uL (150-450); WHITE BLOOD COUNT 4.5 10^3/uL (4.0-10.0)
[2020-06-15 13:29] LABS: CREATININE FOR GFR 1.24 MG/DL (0.55-1.30); GLOMERULAR FILTRATION RATE 45.1 (>39); PHOSPHORUS LEVEL 3.5 MG/DL (2.5-4.9); PREALBUMIN 17.1 MG/DL (20.0-40.0)
== END ==
LOC: M SHH 12:22
PROVIDERS: ATTEND Internal Medicine Gastroenterology
DX: K50.018 Crohn's disease of small intestine with other complication (principal); E44.0 Moderate protein-calorie malnutrition; Z93.2 Ileostomy status

== ENCOUNTER → 2020-06-22 | Outpatient (REF) | payer MEDICARE ==
[~2020-06-22] MED LIST changes: -COVI100V IM; -[UNRECOGNIZED DRUG - OTHER] PO
[2020-06-22 13:07] LABS: HEMATOCRIT 39.9 % (36.0-47.0); HEMOGLOBIN 13.1 g/dl (12.0-15.5); MEAN CORPUSCULAR HGB CONC 32.8 g/dl (32.0-36.5); MEAN CORPUSCULAR VOLUME 97.3 fl (80.0-96.0); PLATELET COUNT, AUTOMATED 151 10^3/uL (150-450); WHITE BLOOD COUNT 4.4 10^3/uL (4.0-10.0)
[2020-06-22 13:31] LABS: CREATININE FOR GFR 1.17 MG/DL (0.55-1.30); GLOMERULAR FILTRATION RATE 48.3 (>39); MAGNESIUM LEVEL 2.1 MG/DL (1.8-2.4); PREALBUMIN 17.9 MG/DL (20.0-40.0)
== END ==
LOC: M SHH 12:27
PROVIDERS: ATTEND Internal Medicine Gastroenterology
DX: K50.018 Crohn's disease of small intestine with other complication (principal); E44.0 Moderate protein-calorie malnutrition; Z93.2 Ileostomy status

== ENCOUNTER → 2020-06-29 | Outpatient (REF) | payer MEDICARE ==
[~2020-06-29] MED LIST changes: +COVI100V IM
[2020-06-29 11:18] LABS: HEMATOCRIT 39.8 % (36.0-47.0); HEMOGLOBIN 12.9 g/dl (12.0-15.5); MEAN CORPUSCULAR HEMOGLOBIN 31.7 pg (27.0-33.0); MEAN CORPUSCULAR HGB CONC 32.4 g/dl (32.0-36.5); MEAN CORPUSCULAR VOLUME 97.8 fl (80.0-96.0); PLATELET COUNT, AUTOMATED 169 10^3/uL (150-450); RED BLOOD COUNT 4.07 10^6/uL (4.00-5.40); WHITE BLOOD COUNT 4.4 10^3/uL (4.0-10.0)
[2020-06-29 12:08] LABS: CALCIUM LEVEL 8.7 MG/DL (8.8-10.2); CREATININE FOR GFR 1.2 MG/DL (0.55-1.30); GLOMERULAR FILTRATION RATE 46.9 (>39); MAGNESIUM LEVEL 1.9 MG/DL (1.8-2.4); PHOSPHORUS LEVEL 3.9 MG/DL (2.5-4.9); POTASSIUM SERUM 3.7 MEQ/L (3.5-5.1); PREALBUMIN 24.8 MG/DL (20.0-40.0)
== END ==
LOC: M SHH 10:52
PROVIDERS: ATTEND Internal Medicine Gastroenterology
DX: K50.018 Crohn's disease of small intestine with other complication (principal); E44.0 Moderate protein-calorie malnutrition; Z93.2 Ileostomy status

== ENCOUNTER 2020-06-30 08:08 | Outpatient (CLI) | payer MEDICARE ==
[~2020-06-30] VITALS: Ht 154.9 cm; Wt 65.9 kg
[~2020-06-30 08:08] MED LIST changes: -COVI100V IM; +VEDOLIZUMAB 300 MG in NS 250 ML IV ONE
[2020-06-30] MEDS ORDERED: VEDOLIZUMAB 300 MG in NS 250 ML IV ONE (08:30)
[2020-06-30 08:33] VITALS: BP 165/82
[2020-06-30] MEDS ORDERED: SODIUM CHLORIDE 0.9% INJ 10 ML SYR IV PRN (08:35)
[2020-06-30] MEDS ORDERED: COVI100V IM (09:01)
[2020-06-30 09:22] VITALS: BP 148/85
[2020-06-30] MEDS ORDERED: SODIUM CHLORIDE 0.9% INJ 10 ML SYR IV SCH (18:00)
== END 2020-06-30 09:35 | disposition home or self-care (01) ==
LOC: M INFU 08:08
PROVIDERS: ATTEND Internal Medicine Gastroenterology
DX: K50.90 Crohn's disease, unspecified, without complications (principal); Z88.2 Allergy status to sulfonamides; Z88.8 Allergy status to other drugs, medicaments and biological substances
CPT/HCPCS: 96365; J1642

== ENCOUNTER → 2020-07-06 | Outpatient (REF) | payer MEDICARE ==
[~2020-07-06] MED LIST changes: +COVI100V IM; -VEDOLIZUMAB 300 MG in NS 250 ML IV ONE
[2020-07-06 12:01] LABS: HEMATOCRIT 40.5 % (36.0-47.0); HEMOGLOBIN 13.4 g/dl (12.0-15.5); MEAN CORPUSCULAR HEMOGLOBIN 32.6 pg (27.0-33.0); MEAN CORPUSCULAR HGB CONC 33.1 g/dl (32.0-36.5); MEAN CORPUSCULAR VOLUME 98.5 fl (80.0-96.0); PLATELET COUNT, AUTOMATED 157 10^3/uL (150-450); RED BLOOD COUNT 4.11 10^6/uL (4.00-5.40); WHITE BLOOD COUNT 4.4 10^3/uL (4.0-10.0)
[2020-07-06 12:28] LABS: CALCIUM LEVEL 9.1 MG/DL (8.8-10.2); CREATININE FOR GFR 1.25 MG/DL (0.55-1.30); GLOMERULAR FILTRATION RATE 44.7 (>39); MAGNESIUM LEVEL 1.8 MG/DL (1.8-2.4); POTASSIUM SERUM 4.1 MEQ/L (3.5-5.1); PREALBUMIN 24.1 MG/DL (20.0-40.0)
== END ==
LOC: M SHH 11:48
PROVIDERS: ATTEND Internal Medicine Gastroenterology
DX: K50.018 Crohn's disease of small intestine with other complication (principal); E44.0 Moderate protein-calorie malnutrition; Z93.2 Ileostomy status

== ENCOUNTER → 2020-07-13 | Outpatient (REF) | payer MEDICARE ==
[~2020-07-13] MED LIST changes: +[UNRECOGNIZED DRUG - OTHER] PO
[2020-07-13 13:09] LABS: HEMATOCRIT 42.5 % (36.0-47.0); HEMOGLOBIN 13.9 g/dl (12.0-15.5); MEAN CORPUSCULAR HGB CONC 32.7 g/dl (32.0-36.5); MEAN CORPUSCULAR VOLUME 97.9 fl (80.0-96.0); PLATELET COUNT, AUTOMATED 169 10^3/uL (150-450); RED BLOOD COUNT 4.34 10^6/uL (4.00-5.40); WHITE BLOOD COUNT 5.1 10^3/uL (4.0-10.0)
[2020-07-13 13:44] LABS: GLOMERULAR FILTRATION RATE 57.9 (>39); MAGNESIUM LEVEL 1.9 MG/DL (1.8-2.4); POTASSIUM SERUM 3.6 MEQ/L (3.5-5.1); PREALBUMIN 21.7 MG/DL (20.0-40.0)
== END ==
LOC: M SHH 11:27
PROVIDERS: ATTEND Internal Medicine Gastroenterology
DX: K50.018 Crohn's disease of small intestine with other complication (principal); E44.0 Moderate protein-calorie malnutrition; Z93.2 Ileostomy status

== ENCOUNTER → 2020-07-16 | Outpatient (CLI) | payer MEDICARE ==
[~2020-07-16] MED LIST changes: +FERR324T21 PO; -FERR325T16 PO; +LIDOCAINE 1% MDV 20ML VIAL As Ordered ONE
[2020-07-16 12:58] VITALS: BP 184/89
--- NOTE | 2020-07-16 18:53 | REP ---
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 COMPARISON: None. TECHNIQUE: The procedure was performed under the direct supervision of Dr. Moss. The risks and benefits of the procedure were explained to the patient and informed consent was obtained. The patient arrived in the department with an existing dual lumen PICC line in the right brachial vein. The catheter and entry site were prepped and draped in a sterile fashion. A 0.018 guidewire was inserted. The existing catheter was removed and a 5.5 Albanian dilator and peel-away sheath was inserted over the guidewire. A 5.5 Albanian dual lumen catheter was cut to a length of 36 cm. The dilator was removed and the catheter was inserted over the guidewire with the tip ending in the SVC. The peel-away sheath was removed and the catheter was flushed with heparinized saline as per hospital protocol. The catheter was affixed to the skin and a sterile dressing was applied. The patient tolerated the procedure well and there were no immediate complications. 0.7 minutes of fluoro time was utilized for this procedure. FINDINGS: None IMPRESSION: Fluoro guidance for PICC line exchange. <Electronically signed by Gideon Austin > 07/16/20 [id number] <Electronically signed by Brando Moss > 07/16/20 [id number]
== END ==
LOC: M IRPRO 11:58
PROVIDERS: ATTEND Internal Medicine Gastroenterology
DX: K50.90 Crohn's disease, unspecified, without complications (principal); E46 Unspecified protein-calorie malnutrition; Z95.828 Presence of other vascular implants and grafts
CPT/HCPCS: 36584; C1751; J1642; J1644

== ENCOUNTER → 2020-07-20 | Outpatient (REF) | payer MEDICARE ==
[~2020-07-20] MED LIST changes: -FERR324T21 PO; +FERR325T16 PO; -LIDOCAINE 1% MDV 20ML VIAL As Ordered ONE
[2020-07-20 13:06] LABS: HEMATOCRIT 41.2 % (36.0-47.0); HEMOGLOBIN 13.5 g/dl (12.0-15.5); MEAN CORPUSCULAR HEMOGLOBIN 32.1 pg (27.0-33.0); MEAN CORPUSCULAR HGB CONC 32.8 g/dl (32.0-36.5); MEAN CORPUSCULAR VOLUME 97.9 fl (80.0-96.0); PLATELET COUNT, AUTOMATED 153 10^3/uL (150-450); RED BLOOD COUNT 4.21 10^6/uL (4.00-5.40); WHITE BLOOD COUNT 4.6 10^3/uL (4.0-10.0)
[2020-07-20 13:55] LABS: CALCIUM LEVEL 8.8 MG/DL (8.8-10.2); CREATININE FOR GFR 1.15 MG/DL (0.55-1.30); GLOMERULAR FILTRATION RATE 49.2 (>39); MAGNESIUM LEVEL 1.9 MG/DL (1.8-2.4); PHOSPHORUS LEVEL 3.9 MG/DL (2.5-4.9); POTASSIUM SERUM 4.1 MEQ/L (3.5-5.1); PREALBUMIN 20.3 MG/DL (20.0-40.0)
== END ==
LOC: M SHH 11:22
PROVIDERS: ATTEND Internal Medicine Gastroenterology
DX: K50.018 Crohn's disease of small intestine with other complication (principal); E44.0 Moderate protein-calorie malnutrition; Z93.2 Ileostomy status

== ENCOUNTER → 2020-07-27 | Outpatient (REF) | payer MEDICARE ==
[2020-07-27 13:08] LABS: HEMATOCRIT 40.5 % (36.0-47.0); HEMOGLOBIN 13.1 g/dl (12.0-15.5); MEAN CORPUSCULAR HEMOGLOBIN 31.9 pg (27.0-33.0); MEAN CORPUSCULAR HGB CONC 32.3 g/dl (32.0-36.5); MEAN CORPUSCULAR VOLUME 98.5 fl (80.0-96.0); PLATELET COUNT, AUTOMATED 161 10^3/uL (150-450); RED BLOOD COUNT 4.11 10^6/uL (4.00-5.40); WHITE BLOOD COUNT 4.7 10^3/uL (4.0-10.0)
[2020-07-27 13:37] LABS: CALCIUM LEVEL 8.3 MG/DL (8.8-10.2); CREATININE FOR GFR 1.04 MG/DL (0.55-1.30); GLOMERULAR FILTRATION RATE 55.3 (>39); PHOSPHORUS LEVEL 3.8 MG/DL (2.5-4.9); POTASSIUM SERUM 4.1 MEQ/L (3.5-5.1); PREALBUMIN 23.8 MG/DL (20.0-40.0)
== END ==
LOC: M SHH 12:44
PROVIDERS: ATTEND Internal Medicine Gastroenterology
DX: K50.018 Crohn's disease of small intestine with other complication (principal); E44.0 Moderate protein-calorie malnutrition; Z93.2 Ileostomy status

== ENCOUNTER → 2020-08-03 | Outpatient (REF) | payer MEDICARE ==
[~2020-08-03] MED LIST changes: +FERR324T21 PO; -FERR325T16 PO
[2020-08-03 14:31] LABS: HEMATOCRIT 40.5 % (36.0-47.0); HEMOGLOBIN 13.1 g/dl (12.0-15.5); MEAN CORPUSCULAR HEMOGLOBIN 32.1 pg (27.0-33.0); MEAN CORPUSCULAR HGB CONC 32.3 g/dl (32.0-36.5); MEAN CORPUSCULAR VOLUME 99.3 fl (80.0-96.0); PLATELET COUNT, AUTOMATED 167 10^3/uL (150-450); RED BLOOD COUNT 4.08 10^6/uL (4.00-5.40); WHITE BLOOD COUNT 5.5 10^3/uL (4.0-10.0)
[2020-08-03 15:12] LABS: CALCIUM LEVEL 9.2 MG/DL (8.8-10.2); CREATININE FOR GFR 1.07 MG/DL (0.55-1.30); GLOMERULAR FILTRATION RATE 53.5 (>39); MAGNESIUM LEVEL 2.2 MG/DL (1.8-2.4); PHOSPHORUS LEVEL 4.3 MG/DL (2.5-4.9); POTASSIUM SERUM 4.4 MEQ/L (3.5-5.1); PREALBUMIN 21.6 MG/DL (20.0-40.0)
== END ==
LOC: M SHH 14:19
PROVIDERS: ATTEND Internal Medicine Gastroenterology
DX: K50.018 Crohn's disease of small intestine with other complication (principal); E44.0 Moderate protein-calorie malnutrition; Z93.2 Ileostomy status

== ENCOUNTER → 2020-08-10 | Outpatient (REF) | payer MEDICARE ==
[2020-08-10 13:43] LABS: HEMOGLOBIN 14.1 g/dl (12.0-15.5); MEAN CORPUSCULAR HEMOGLOBIN 32.2 pg (27.0-33.0); MEAN CORPUSCULAR HGB CONC 32.8 g/dl (32.0-36.5); MEAN CORPUSCULAR VOLUME 98.2 fl (80.0-96.0); PLATELET COUNT, AUTOMATED 165 10^3/uL (150-450); RED BLOOD COUNT 4.38 10^6/uL (4.00-5.40); WHITE BLOOD COUNT 4.9 10^3/uL (4.0-10.0)
[2020-08-10 14:50] LABS: CALCIUM LEVEL 8.9 MG/DL (8.8-10.2); CREATININE FOR GFR 1.25 MG/DL (0.55-1.30); GLOMERULAR FILTRATION RATE 44.7 (>39); MAGNESIUM LEVEL 2.3 MG/DL (1.8-2.4); POTASSIUM SERUM 3.9 MEQ/L (3.5-5.1)
== END ==
LOC: M SHH 12:40
PROVIDERS: ATTEND Internal Medicine Gastroenterology
DX: K50.018 Crohn's disease of small intestine with other complication (principal); E44.0 Moderate protein-calorie malnutrition; Z93.2 Ileostomy status

== ENCOUNTER → 2020-08-13 | Outpatient (CLI) | payer MEDICARE ==
--- NOTE | 2020-08-13 12:17 | REP ---
INDICATION: ARTHRITIS OF LEFT KNEE COMPARISON: 11/09/2018 TECHNIQUE: AP, lateral, bilateral oblique and sunrise views. FINDINGS: Advanced progressive osteoarthritic degenerative changes most notably and asymmetrically involving the medial joint space compartment. Findings include diffuse heterogeneity to the distal femur and proximal tibia with irregular mottled sclerotic and lytic changes, near complete medial joint space obliteration, medial tibial osteophytosis, and subchondral cystic changes which may reflect osteochondritis dissecans. The lateral femoral confirmed mint and patellofemoral compartment demonstrate moderate relatively age-related degenerative changes. A small chronic suprapatellar effusion is suggested. IMPRESSION: Advanced progressive arthritic degenerative changes primarily involving the medial compartment. <Electronically signed by Burt Leong > 08/13/20 [id number]
== END ==
LOC: M ADAMS 11:22
PROVIDERS: ATTEND Family Medicine
DX: M17.12 Unilateral primary osteoarthritis, left knee (principal)
CPT/HCPCS: 73564; G0463

== ENCOUNTER → 2020-08-17 | Outpatient (REF) | payer MEDICARE ==
[2020-08-17 17:21] LABS: HEMATOCRIT 39.1 % (36.0-47.0); HEMOGLOBIN 12.5 g/dl (12.0-15.5); MEAN CORPUSCULAR HEMOGLOBIN 32.1 pg (27.0-33.0); MEAN CORPUSCULAR VOLUME 100.5 fl (80.0-96.0); PLATELET COUNT, AUTOMATED 142 10^3/uL (150-450); RED BLOOD COUNT 3.89 10^6/uL (4.00-5.40); WHITE BLOOD COUNT 4.1 10^3/uL (4.0-10.0)
[2020-08-17 18:03] LABS: CALCIUM LEVEL 8.5 MG/DL (8.8-10.2); CREATININE FOR GFR 1.12 MG/DL (0.55-1.30); GLOMERULAR FILTRATION RATE 50.8 (>39); PHOSPHORUS LEVEL 4.2 MG/DL (2.5-4.9); POTASSIUM SERUM 4.7 MEQ/L (3.5-5.1); PREALBUMIN 20.1 MG/DL (20.0-40.0)
== END ==
LOC: M SHH 16:02
PROVIDERS: ATTEND Internal Medicine Gastroenterology
DX: K50.018 Crohn's disease of small intestine with other complication (principal); E44.0 Moderate protein-calorie malnutrition; Z93.2 Ileostomy status

== ENCOUNTER → 2020-08-24 | Outpatient (REF) | payer MEDICARE ==
[2020-08-24 15:36] LABS: HEMATOCRIT 39.3 % (36.0-47.0); HEMOGLOBIN 12.4 g/dl (12.0-15.5); MEAN CORPUSCULAR HEMOGLOBIN 31.6 pg (27.0-33.0); MEAN CORPUSCULAR HGB CONC 31.6 g/dl (32.0-36.5); PLATELET COUNT, AUTOMATED 163 10^3/uL (150-450); RED BLOOD COUNT 3.93 10^6/uL (4.00-5.40); WHITE BLOOD COUNT 4.3 10^3/uL (4.0-10.0)
[2020-08-24 16:24] LABS: CALCIUM LEVEL 8.8 MG/DL (8.8-10.2); CREATININE FOR GFR 1.1 MG/DL (0.55-1.30); GLOMERULAR FILTRATION RATE 51.8 (>39); MAGNESIUM LEVEL 1.5 MG/DL (1.8-2.4); PHOSPHORUS LEVEL 4.1 MG/DL (2.5-4.9); POTASSIUM SERUM 4.2 MEQ/L (3.5-5.1); PREALBUMIN 17.9 MG/DL (20.0-40.0)
== END ==
LOC: M SHH 14:30
PROVIDERS: ATTEND Internal Medicine Gastroenterology
DX: K50.018 Crohn's disease of small intestine with other complication (principal); E44.0 Moderate protein-calorie malnutrition; Z93.2 Ileostomy status

== ENCOUNTER 2020-08-25 08:40 | Outpatient (CLI) | payer MEDICARE ==
[~2020-08-25] VITALS: Ht 154.9 cm; Wt 65.9 kg
[2020-08-25] MEDS ORDERED: SODIUM CHLORIDE 0.9% INJ 10 ML SYR IV PRN (09:00)
[2020-08-25] MEDS ORDERED: VEDOLIZUMAB 300 MG in NS 250 ML IV ONE (09:00)
[2020-08-25 09:05] VITALS: BP 169/77
[2020-08-25 09:56] VITALS: BP 170/74
[2020-08-25] MEDS ORDERED: SODIUM CHLORIDE 0.9% INJ 10 ML SYR IV SCH (18:00)
== END 2020-08-25 10:10 | disposition home or self-care (01) ==
LOC: M INFU 08:40
PROVIDERS: ATTEND Internal Medicine Gastroenterology
DX: K50.90 Crohn's disease, unspecified, without complications (principal); Z88.2 Allergy status to sulfonamides; Z88.8 Allergy status to other drugs, medicaments and biological substances
CPT/HCPCS: 96365; 96523; J1642

== ENCOUNTER → 2020-08-31 | Outpatient (REF) | payer MEDICARE ==
[2020-08-31 13:58] LABS: HEMATOCRIT 38.7 % (36.0-47.0); HEMOGLOBIN 12.5 g/dl (12.0-15.5); MEAN CORPUSCULAR HEMOGLOBIN 31.9 pg (27.0-33.0); MEAN CORPUSCULAR HGB CONC 32.3 g/dl (32.0-36.5); MEAN CORPUSCULAR VOLUME 98.7 fl (80.0-96.0); PLATELET COUNT, AUTOMATED 156 10^3/uL (150-450); RED BLOOD COUNT 3.92 10^6/uL (4.00-5.40); WHITE BLOOD COUNT 3.9 10^3/uL (4.0-10.0)
[2020-08-31 14:31] LABS: CALCIUM LEVEL 8.8 MG/DL (8.8-10.2); CREATININE FOR GFR 1.02 MG/DL (0.55-1.30); GLOMERULAR FILTRATION RATE 56.6 (>39); MAGNESIUM LEVEL 1.2 MG/DL (1.8-2.4); PHOSPHORUS LEVEL 3.7 MG/DL (2.5-4.9); POTASSIUM SERUM 4.1 MEQ/L (3.5-5.1); PREALBUMIN 19.5 MG/DL (20.0-40.0)
== END ==
LOC: M SHH 13:44
PROVIDERS: ATTEND Internal Medicine Gastroenterology
DX: K50.018 Crohn's disease of small intestine with other complication (principal); E44.0 Moderate protein-calorie malnutrition; Z93.2 Ileostomy status

== ENCOUNTER → 2020-09-04 | Outpatient (CLI) | payer MEDICARE ==
[2020-09-04 14:27] LABS: CALCIUM LEVEL 9.2 MG/DL (8.8-10.2); CREATININE FOR GFR 1.12 MG/DL (0.55-1.30); GLOMERULAR FILTRATION RATE 50.8 (>39); MAGNESIUM LEVEL 1.4 MG/DL (1.8-2.4); PHOSPHORUS LEVEL 3.3 MG/DL (2.5-4.9)
== END ==
LOC: M LAB 12:23
PROVIDERS: ATTEND Internal Medicine Gastroenterology
DX: K50.018 Crohn's disease of small intestine with other complication (principal); E44.0 Moderate protein-calorie malnutrition

== ENCOUNTER → 2020-09-04 | Outpatient (CLI) | payer MEDICARE ==
--- NOTE | 2020-09-04 12:03 | REP ---
INDICATION: PAIN LEFT KNEE. COMPARISON: Left knee 08/13/2020. TECHNIQUE: Standing PA view bilateral knees. FINDINGS: There is no acute fracture or dislocation. On the right there is mild medial joint space narrowing and subchondral sclerosis. There are multiple jordy in the adjacent soft tissues. On the left there is severe medial joint space narrowing with extensive subchondral sclerosis and cystic change. There is mild spurring of the medial tibial plateau. There is mild narrowing of the lateral joint space. IMPRESSION: Arthritic changes as discussed above. <Electronically signed by Brando Moss > 09/04/20 [id number]
== END ==
LOC: M SOG 10:08
PROVIDERS: ATTEND Orthopaedic Surgery Adult Reconstructive Orthopaedic Surgery
DX: M17.0 Bilateral primary osteoarthritis of knee (principal); M25.562 Pain in left knee

== ENCOUNTER → 2020-09-07 | Outpatient (REF) | payer MEDICARE ==
[2020-09-07 12:42] LABS: HEMATOCRIT 36.8 % (36.0-47.0); HEMOGLOBIN 11.9 g/dl (12.0-15.5); MEAN CORPUSCULAR HEMOGLOBIN 31.7 pg (27.0-33.0); MEAN CORPUSCULAR HGB CONC 32.3 g/dl (32.0-36.5); MEAN CORPUSCULAR VOLUME 98.1 fl (80.0-96.0); PLATELET COUNT, AUTOMATED 140 10^3/uL (150-450); RED BLOOD COUNT 3.75 10^6/uL (4.00-5.40); WHITE BLOOD COUNT 3.3 10^3/uL (4.0-10.0)
[2020-09-07 13:17] LABS: BLOOD UREA NITROGEN 31 MG/DL (7-18); CARBON DIOXIDE LEVEL 28 MEQ/L (21-32); CHLORIDE LEVEL 108 MEQ/L (98-107); CREATININE FOR GFR 0.95 MG/DL (0.55-1.30); GLOMERULAR FILTRATION RATE > 60.0 (>39); GLUCOSE, FASTING 85 MG/DL (70-100); PHOSPHORUS LEVEL 3.3 MG/DL (2.5-4.9); POTASSIUM SERUM 4.1 MEQ/L (3.5-5.1); PREALBUMIN 16.1 MG/DL (20.0-40.0); SODIUM LEVEL 143 MEQ/L (136-145)
== END ==
LOC: M SHH 12:13
PROVIDERS: ATTEND Internal Medicine Gastroenterology
DX: K50.018 Crohn's disease of small intestine with other complication (principal); E44.0 Moderate protein-calorie malnutrition; Z93.2 Ileostomy status

== ENCOUNTER → 2020-09-14 | Outpatient (REF) | payer MEDICARE ==
[2020-09-14 11:19] LABS: BASO % 0.5 % (0.0-1.0); EOS # 0.2 10^3/uL (0.0-0.5); EOS % 3.7 % (0.0-3.0); HEMATOCRIT 39.8 % (36.0-47.0); LYMPH # 0.9 10^3/uL (1.5-5.0); LYMPH % 21.1 % (24.0-44.0); MEAN CORPUSCULAR HEMOGLOBIN 31.9 pg (27.0-33.0); MEAN CORPUSCULAR HGB CONC 32.7 g/dl (32.0-36.5); MEAN CORPUSCULAR VOLUME 97.5 fl (80.0-96.0); MONO # 0.4 10^3/uL (0.0-0.8); MONO % 10.3 % (2.0-8.0); NEUTROPHILS # 2.6 10^3/uL (1.5-8.5); NEUTROPHILS % 64.2 % (36.0-66.0); PLATELET COUNT, AUTOMATED 174 10^3/uL (150-450); RED BLOOD COUNT 4.08 10^6/uL (4.00-5.40); WHITE BLOOD COUNT 4.1 10^3/uL (4.0-10.0)
[2020-09-14 12:24] LABS: ALBUMIN 2.9 GM/DL (3.2-5.2); CALCIUM LEVEL 8.7 MG/DL (8.8-10.2); CREATININE FOR GFR 1.16 MG/DL (0.55-1.30); GLOMERULAR FILTRATION RATE 48.8 (>39); PHOSPHORUS LEVEL 3.7 MG/DL (2.5-4.9); POTASSIUM SERUM 4.3 MEQ/L (3.5-5.1)
== END ==
LOC: M SHH 10:51
PROVIDERS: ATTEND Internal Medicine Nephrology
DX: N18.31 Chronic kidney disease, stage 3a (principal); N25.81 Secondary hyperparathyroidism of renal origin; K50.00 Crohn's disease of small intestine without complications; E44.0 Moderate protein-calorie malnutrition; Z93.2 Ileostomy status

== ENCOUNTER → 2020-09-14 | Outpatient (REF) | payer MEDICARE ==
[2020-09-14 13:24] LABS: CALCIUM LEVEL 8.7 MG/DL (8.8-10.2); CREATININE FOR GFR 1.14 MG/DL (0.55-1.30); GLOMERULAR FILTRATION RATE 49.7 (>39); PHOSPHORUS LEVEL 3.8 MG/DL (2.5-4.9); POTASSIUM SERUM 4.4 MEQ/L (3.5-5.1)
== END ==
LOC: M SHH 10:54
PROVIDERS: ATTEND Internal Medicine Gastroenterology
DX: K50.00 Crohn's disease of small intestine without complications (principal); E44.0 Moderate protein-calorie malnutrition; Z93.2 Ileostomy status

== ENCOUNTER → 2020-09-22 | Outpatient (REF) | payer MEDICARE ==
[2020-09-22 11:08] LABS: HEMATOCRIT 40.7 % (36.0-47.0); MEAN CORPUSCULAR HEMOGLOBIN 31.3 pg (27.0-33.0); MEAN CORPUSCULAR HGB CONC 31.9 g/dl (32.0-36.5); MEAN CORPUSCULAR VOLUME 97.8 fl (80.0-96.0); PLATELET COUNT, AUTOMATED 198 10^3/uL (150-450); RED BLOOD COUNT 4.16 10^6/uL (4.00-5.40); WHITE BLOOD COUNT 4.1 10^3/uL (4.0-10.0)
[2020-09-22 11:39] LABS: CALCIUM LEVEL 8.9 MG/DL (8.8-10.2); CREATININE FOR GFR 1.07 MG/DL (0.55-1.30); GLOMERULAR FILTRATION RATE 53.5 (>39); MAGNESIUM LEVEL 2.3 MG/DL (1.8-2.4); PHOSPHORUS LEVEL 4.8 MG/DL (2.5-4.9); POTASSIUM SERUM 4.5 MEQ/L (3.5-5.1); PREALBUMIN 20.1 MG/DL (20.0-40.0)
== END ==
LOC: M SHH 10:22
PROVIDERS: ATTEND Internal Medicine Gastroenterology
DX: K50.018 Crohn's disease of small intestine with other complication (principal); E44.0 Moderate protein-calorie malnutrition; Z93.2 Ileostomy status

== ENCOUNTER → 2020-09-28 | Outpatient (REF) | payer MEDICARE ==
[2020-09-28 14:43] LABS: HEMATOCRIT 38.6 % (36.0-47.0); HEMOGLOBIN 12.4 g/dl (12.0-15.5); MEAN CORPUSCULAR HEMOGLOBIN 31.9 pg (27.0-33.0); MEAN CORPUSCULAR HGB CONC 32.1 g/dl (32.0-36.5); MEAN CORPUSCULAR VOLUME 99.2 fl (80.0-96.0); PLATELET COUNT, AUTOMATED 169 10^3/uL (150-450); RED BLOOD COUNT 3.89 10^6/uL (4.00-5.40); WHITE BLOOD COUNT 4.1 10^3/uL (4.0-10.0)
[2020-09-28 15:10] LABS: CALCIUM LEVEL 8.7 MG/DL (8.8-10.2); CREATININE FOR GFR 1.17 MG/DL (0.55-1.30); GLOMERULAR FILTRATION RATE 48.3 (>39); MAGNESIUM LEVEL 2.6 MG/DL (1.8-2.4); PHOSPHORUS LEVEL 4.1 MG/DL (2.5-4.9); POTASSIUM SERUM 4.3 MEQ/L (3.5-5.1); PREALBUMIN 29.5 MG/DL (20.0-40.0)
== END ==
LOC: M SHH 13:54
PROVIDERS: ATTEND Internal Medicine Gastroenterology
DX: E44.0 Moderate protein-calorie malnutrition (principal); Z93.2 Ileostomy status; K50.018 Crohn's disease of small intestine with other complication

== ENCOUNTER → 2020-10-05 | Outpatient (REF) | payer MEDICARE ==
[2020-10-05 14:54] LABS: HEMATOCRIT 37.8 % (36.0-47.0); MEAN CORPUSCULAR HEMOGLOBIN 31.1 pg (27.0-33.0); MEAN CORPUSCULAR HGB CONC 31.7 g/dl (32.0-36.5); MEAN CORPUSCULAR VOLUME 97.9 fl (80.0-96.0); PLATELET COUNT, AUTOMATED 157 10^3/uL (150-450); RED BLOOD COUNT 3.86 10^6/uL (4.00-5.40); WHITE BLOOD COUNT 4.3 10^3/uL (4.0-10.0)
[2020-10-05 15:22] LABS: CALCIUM LEVEL 8.3 MG/DL (8.8-10.2); CREATININE FOR GFR 1.15 MG/DL (0.55-1.30); GLOMERULAR FILTRATION RATE 49.2 (>39); MAGNESIUM LEVEL 2.6 MG/DL (1.8-2.4); PHOSPHORUS LEVEL 3.7 MG/DL (2.5-4.9); POTASSIUM SERUM 4.3 MEQ/L (3.5-5.1); PREALBUMIN 17.5 MG/DL (20.0-40.0)
== END ==
LOC: M SHH 14:36
PROVIDERS: ATTEND Internal Medicine Gastroenterology
DX: K50.018 Crohn's disease of small intestine with other complication (principal); E44.0 Moderate protein-calorie malnutrition; Z93.2 Ileostomy status

== ENCOUNTER → 2020-10-12 | Outpatient (REF) | payer MEDICARE ==
[2020-10-12 12:54] LABS: HEMATOCRIT 38.6 % (36.0-47.0); HEMOGLOBIN 12.5 g/dl (12.0-15.5); MEAN CORPUSCULAR HEMOGLOBIN 31.6 pg (27.0-33.0); MEAN CORPUSCULAR HGB CONC 32.4 g/dl (32.0-36.5); MEAN CORPUSCULAR VOLUME 97.5 fl (80.0-96.0); PLATELET COUNT, AUTOMATED 186 10^3/uL (150-450); RED BLOOD COUNT 3.96 10^6/uL (4.00-5.40); WHITE BLOOD COUNT 4.3 10^3/uL (4.0-10.0)
[2020-10-12 13:23] LABS: CALCIUM LEVEL 8.3 MG/DL (8.8-10.2); CREATININE FOR GFR 1.25 MG/DL (0.55-1.30); GLOMERULAR FILTRATION RATE 44.7 (>39); MAGNESIUM LEVEL 2.2 MG/DL (1.8-2.4); PHOSPHORUS LEVEL 4.1 MG/DL (2.5-4.9); POTASSIUM SERUM 4.1 MEQ/L (3.5-5.1); PREALBUMIN 23.1 MG/DL (20.0-40.0)
== END ==
LOC: M SHH 11:59
PROVIDERS: ATTEND Internal Medicine Gastroenterology
DX: K50.018 Crohn's disease of small intestine with other complication (principal); E44.0 Moderate protein-calorie malnutrition; Z93.2 Ileostomy status

== ENCOUNTER 2020-10-16 08:20 | Outpatient (CLI) | payer MEDICARE ==
[~2020-10-16] VITALS: Ht 154.9 cm; Wt 65.9 kg
[2020-10-16] MEDS ORDERED: VEDOLIZUMAB 300 MG in NS 250 ML IV ONE (08:30)
[2020-10-16] MEDS ORDERED: SODIUM CHLORIDE 0.9% INJ 10 ML SYR IV PRN (08:35)
[2020-10-16 08:38] VITALS: BP 127/70
[2020-10-16 09:43] VITALS: BP 137/65
[2020-10-16] MEDS ORDERED: SODIUM CHLORIDE 0.9% INJ 10 ML SYR IV SCH (18:00)
== END 2020-10-16 09:45 | disposition home or self-care (01) ==
LOC: M INFU 08:20
PROVIDERS: ATTEND Internal Medicine Gastroenterology
DX: K50.90 Crohn's disease, unspecified, without complications (principal)
CPT/HCPCS: 96365; J1642

== ENCOUNTER → 2020-10-19 | Outpatient (REF) | payer MEDICARE ==
[2020-10-19 13:36] LABS: HEMATOCRIT 37.5 % (36.0-47.0); HEMOGLOBIN 12.1 g/dl (12.0-15.5); MEAN CORPUSCULAR HEMOGLOBIN 31.5 pg (27.0-33.0); MEAN CORPUSCULAR HGB CONC 32.3 g/dl (32.0-36.5); MEAN CORPUSCULAR VOLUME 97.7 fl (80.0-96.0); PLATELET COUNT, AUTOMATED 178 10^3/uL (150-450); RED BLOOD COUNT 3.84 10^6/uL (4.00-5.40); WHITE BLOOD COUNT 4.4 10^3/uL (4.0-10.0)
[2020-10-19 15:11] LABS: CALCIUM LEVEL 8.6 MG/DL (8.8-10.2); CREATININE FOR GFR 1.35 MG/DL (0.55-1.30); GLOMERULAR FILTRATION RATE 40.9 (>39); MAGNESIUM LEVEL 2.3 MG/DL (1.8-2.4); PHOSPHORUS LEVEL 4.2 MG/DL (2.5-4.9); POTASSIUM SERUM 4.1 MEQ/L (3.5-5.1); PREALBUMIN 22.4 MG/DL (20.0-40.0)
== END ==
LOC: M SHH 12:50
PROVIDERS: ATTEND Internal Medicine Gastroenterology
DX: K50.018 Crohn's disease of small intestine with other complication (principal); Z93.2 Ileostomy status; E44.0 Moderate protein-calorie malnutrition

== ENCOUNTER → 2020-10-27 | Outpatient (REF) | payer MEDICARE ==
[2020-10-27 13:41] LABS: HEMATOCRIT 38.9 % (36.0-47.0); HEMOGLOBIN 12.6 g/dl (12.0-15.5); MEAN CORPUSCULAR HEMOGLOBIN 31.6 pg (27.0-33.0); MEAN CORPUSCULAR HGB CONC 32.4 g/dl (32.0-36.5); MEAN CORPUSCULAR VOLUME 97.5 fl (80.0-96.0); PLATELET COUNT, AUTOMATED 182 10^3/uL (150-450); RED BLOOD COUNT 3.99 10^6/uL (4.00-5.40); WHITE BLOOD COUNT 4.7 10^3/uL (4.0-10.0)
[2020-10-27 14:18] LABS: ALBUMIN 3.1 GM/DL (3.2-5.2); CALCIUM LEVEL 8.7 MG/DL (8.8-10.2); CREATININE FOR GFR 1.24 MG/DL (0.55-1.30); GLOMERULAR FILTRATION RATE 45.1 (>39); POTASSIUM SERUM 4.2 MEQ/L (3.5-5.1); PREALBUMIN 19.8 MG/DL (20.0-40.0)
== END ==
LOC: M SHH 12:33
PROVIDERS: ATTEND Internal Medicine Gastroenterology
DX: K50.018 Crohn's disease of small intestine with other complication (principal)

== ENCOUNTER → 2020-11-02 | Outpatient (REF) | payer MEDICARE ==
[2020-11-02 13:35] LABS: HEMATOCRIT 37.1 % (36.0-47.0); HEMOGLOBIN 12.3 g/dl (12.0-15.5); MEAN CORPUSCULAR HEMOGLOBIN 32.3 pg (27.0-33.0); MEAN CORPUSCULAR HGB CONC 33.2 g/dl (32.0-36.5); MEAN CORPUSCULAR VOLUME 97.4 fl (80.0-96.0); PLATELET COUNT, AUTOMATED 164 10^3/uL (150-450); RED BLOOD COUNT 3.81 10^6/uL (4.00-5.40)
[2020-11-02 14:07] LABS: ALBUMIN 2.9 GM/DL (3.2-5.2); CALCIUM LEVEL 8.4 MG/DL (8.8-10.2); CREATININE FOR GFR 1.12 MG/DL (0.55-1.30); GLOMERULAR FILTRATION RATE 50.8 (>39); POTASSIUM SERUM 3.6 MEQ/L (3.5-5.1); PREALBUMIN 21.4 MG/DL (20.0-40.0)
== END ==
LOC: M SHH 13:10
PROVIDERS: ATTEND Internal Medicine Gastroenterology
DX: K50.018 Crohn's disease of small intestine with other complication (principal)

== ENCOUNTER → 2020-11-09 | Outpatient (REF) | payer MEDICARE ==
[2020-11-09 13:09] LABS: HEMATOCRIT 37.9 % (36.0-47.0); HEMOGLOBIN 12.3 g/dl (12.0-15.5); MEAN CORPUSCULAR HEMOGLOBIN 31.5 pg (27.0-33.0); MEAN CORPUSCULAR HGB CONC 32.5 g/dl (32.0-36.5); MEAN CORPUSCULAR VOLUME 96.9 fl (80.0-96.0); PLATELET COUNT, AUTOMATED 165 10^3/uL (150-450); RED BLOOD COUNT 3.91 10^6/uL (4.00-5.40)
[2020-11-09 13:59] LABS: CALCIUM LEVEL 8.6 MG/DL (8.8-10.2); CREATININE FOR GFR 1.38 MG/DL (0.55-1.30); GLOMERULAR FILTRATION RATE 39.9 (>39); MAGNESIUM LEVEL 2.3 MG/DL (1.8-2.4); PHOSPHORUS LEVEL 4.2 MG/DL (2.5-4.9); POTASSIUM SERUM 3.6 MEQ/L (3.5-5.1); PREALBUMIN 20.3 MG/DL (20.0-40.0)
== END ==
LOC: M SHH 12:09
PROVIDERS: ATTEND Internal Medicine Gastroenterology
DX: K50.018 Crohn's disease of small intestine with other complication (principal); E44.0 Moderate protein-calorie malnutrition; Z93.2 Ileostomy status

== ENCOUNTER → 2020-11-16 | Outpatient (REF) | payer MEDICARE ==
[2020-11-16 14:49] LABS: BASO % 0.4 % (0.0-1.0); EOS # 0.1 10^3/uL (0.0-0.5); EOS % 2.5 % (0.0-3.0); HEMATOCRIT 35.1 % (36.0-47.0); HEMOGLOBIN 11.4 g/dl (12.0-15.5); LYMPH # 0.8 10^3/uL (1.5-5.0); LYMPH % 16.3 % (24.0-44.0); MEAN CORPUSCULAR HEMOGLOBIN 31.9 pg (27.0-33.0); MEAN CORPUSCULAR HGB CONC 32.5 g/dl (32.0-36.5); MEAN CORPUSCULAR VOLUME 98.3 fl (80.0-96.0); MONO # 0.4 10^3/uL (0.0-0.8); MONO % 8.5 % (2.0-8.0); NEUTROPHILS # 3.4 10^3/uL (1.5-8.5); NEUTROPHILS % 72.1 % (36.0-66.0); PLATELET COUNT, AUTOMATED 160 10^3/uL (150-450); RED BLOOD COUNT 3.57 10^6/uL (4.00-5.40); WHITE BLOOD COUNT 4.7 10^3/uL (4.0-10.0)
[2020-11-16 15:13] LABS: ALBUMIN 2.8 GM/DL (3.2-5.2); CALCIUM LEVEL 8.5 MG/DL (8.8-10.2); CREATININE FOR GFR 1.52 MG/DL (0.55-1.30); GLOMERULAR FILTRATION RATE 35.7 (>39); MAGNESIUM LEVEL 2.2 MG/DL (1.8-2.4); PHOSPHORUS LEVEL 3.8 MG/DL (2.5-4.9); POTASSIUM SERUM 3.9 MEQ/L (3.5-5.1)
== END ==
LOC: M SHH 14:33
PROVIDERS: ATTEND Internal Medicine Gastroenterology
DX: E44.0 Moderate protein-calorie malnutrition (principal); K50.018 Crohn's disease of small intestine with other complication

== ENCOUNTER → 2020-11-23 | Outpatient (REF) | payer MEDICARE ==
[~2020-11-23] MED LIST changes: +CALC1CAP31; -CEFD1CAP8 PO; +CEFD300C41 PO; +LOSA25TA13 PO; -LOSA25TA14 PO; +LOSA50TA28 PO; -LOSA50TA88 PO; +OXYC-600 PO; -OXYC1TAB PO; +VALS40TA9 PO
[2020-11-23 14:37] LABS: HEMATOCRIT 36.6 % (36.0-47.0); MEAN CORPUSCULAR HEMOGLOBIN 32.1 pg (27.0-33.0); MEAN CORPUSCULAR HGB CONC 32.8 g/dl (32.0-36.5); MEAN CORPUSCULAR VOLUME 97.9 fl (80.0-96.0); PLATELET COUNT, AUTOMATED 166 10^3/uL (150-450); RED BLOOD COUNT 3.74 10^6/uL (4.00-5.40); WHITE BLOOD COUNT 4.9 10^3/uL (4.0-10.0)
[2020-11-23 15:09] LABS: CALCIUM LEVEL 8.9 MG/DL (8.8-10.2); CREATININE FOR GFR 1.29 MG/DL (0.55-1.30); GLOMERULAR FILTRATION RATE 43.1 (>39); MAGNESIUM LEVEL 2.2 MG/DL (1.8-2.4); PHOSPHORUS LEVEL 3.4 MG/DL (2.5-4.9); POTASSIUM SERUM 4.1 MEQ/L (3.5-5.1); PREALBUMIN 18.6 MG/DL (20.0-40.0)
== END ==
LOC: M SHH 14:02
PROVIDERS: ATTEND Internal Medicine Gastroenterology
DX: K50.018 Crohn's disease of small intestine with other complication (principal)

== ENCOUNTER → 2020-11-30 | Outpatient (REF) | payer MEDICARE ==
[2020-11-30 13:59] LABS: BASO % 0.4 % (0.0-1.0); EOS # 0.2 10^3/uL (0.0-0.5); HEMATOCRIT 35.2 % (36.0-47.0); HEMOGLOBIN 11.5 g/dl (12.0-15.5); LYMPH # 0.9 10^3/uL (1.5-5.0); LYMPH % 18.3 % (24.0-44.0); MEAN CORPUSCULAR HEMOGLOBIN 32.3 pg (27.0-33.0); MEAN CORPUSCULAR HGB CONC 32.7 g/dl (32.0-36.5); MEAN CORPUSCULAR VOLUME 98.9 fl (80.0-96.0); MONO # 0.4 10^3/uL (0.0-0.8); MONO % 8.9 % (2.0-8.0); NEUTROPHILS # 3.4 10^3/uL (1.5-8.5); PLATELET COUNT, AUTOMATED 168 10^3/uL (150-450); RED BLOOD COUNT 3.56 10^6/uL (4.00-5.40); WHITE BLOOD COUNT 4.9 10^3/uL (4.0-10.0)
[2020-11-30 14:30] LABS: ALBUMIN 2.8 GM/DL (3.2-5.2); CALCIUM LEVEL 8.3 MG/DL (8.8-10.2); CREATININE FOR GFR 1.46 MG/DL (0.55-1.30); GLOMERULAR FILTRATION RATE 37.4 (>39); MAGNESIUM LEVEL 2.2 MG/DL (1.8-2.4); PHOSPHORUS LEVEL 4.3 MG/DL (2.5-4.9); POTASSIUM SERUM 3.7 MEQ/L (3.5-5.1)
== END ==
LOC: M SHH 13:36
PROVIDERS: ATTEND Internal Medicine Gastroenterology
DX: E44.0 Moderate protein-calorie malnutrition (principal); K50.018 Crohn's disease of small intestine with other complication

== ENCOUNTER → 2020-12-07 | Outpatient (REF) | payer MEDICARE ==
[~2020-12-07] MED LIST changes: -CALC1CAP31; +CEFD1CAP8 PO; -CEFD300C41 PO; -LOSA25TA13 PO; +LOSA25TA14 PO; -LOSA50TA28 PO; +LOSA50TA88 PO; -OXYC-600 PO; +OXYC1TAB PO; -VALS40TA9 PO
[2020-12-07 11:17] LABS: HEMATOCRIT 36.3 % (36.0-47.0); HEMOGLOBIN 12.1 g/dl (12.0-15.5); MEAN CORPUSCULAR HEMOGLOBIN 32.4 pg (27.0-33.0); MEAN CORPUSCULAR HGB CONC 33.3 g/dl (32.0-36.5); MEAN CORPUSCULAR VOLUME 97.3 fl (80.0-96.0); PLATELET COUNT, AUTOMATED 163 10^3/uL (150-450); RED BLOOD COUNT 3.73 10^6/uL (4.00-5.40); WHITE BLOOD COUNT 4.8 10^3/uL (4.0-10.0)
[2020-12-07 11:47] LABS: ALBUMIN 2.8 GM/DL (3.2-5.2); CALCIUM LEVEL 8.4 MG/DL (8.8-10.2); CREATININE FOR GFR 1.3 MG/DL (0.55-1.30); GLOMERULAR FILTRATION RATE 42.7 (>39); MAGNESIUM LEVEL 2.1 MG/DL (1.8-2.4); PHOSPHORUS LEVEL 4.2 MG/DL (2.5-4.9); POTASSIUM SERUM 4.1 MEQ/L (3.5-5.1); PREALBUMIN 24.7 MG/DL (20.0-40.0)
== END ==
LOC: M SHH 10:53
PROVIDERS: ATTEND Internal Medicine Gastroenterology
DX: K50.018 Crohn's disease of small intestine with other complication (principal); E44.0 Moderate protein-calorie malnutrition; Z93.2 Ileostomy status

== ENCOUNTER 2020-12-11 08:53 | Outpatient (CLI) | payer MEDICARE ==
[~2020-12-11] VITALS: Ht 154.9 cm; Wt 65.0 kg
[~2020-12-11 08:53] MED LIST changes: +VEDOLIZUMAB 300 MG in NS 250 ML IV ONE
[2020-12-11 09:19] VITALS: BP 148/67
[2020-12-11] MEDS ORDERED: SODIUM CHLORIDE 0.9% INJ 10 ML SYR IV PRN (09:25)
[2020-12-11 10:20] VITALS: BP 121/60
[2020-12-11] MEDS ORDERED: SODIUM CHLORIDE 0.9% INJ 10 ML SYR IV SCH (18:00)
== END 2020-12-11 10:20 | disposition home or self-care (01) ==
LOC: M INFU 08:53
PROVIDERS: ATTEND Internal Medicine Gastroenterology
DX: K50.90 Crohn's disease, unspecified, without complications (principal); Z88.2 Allergy status to sulfonamides; Z88.8 Allergy status to other drugs, medicaments and biological substances
CPT/HCPCS: 96365; J1642

== ENCOUNTER → 2020-12-14 | Outpatient (REF) | payer MEDICARE ==
[~2020-12-14] MED LIST changes: -VEDOLIZUMAB 300 MG in NS 250 ML IV ONE
[2020-12-14 12:45] LABS: BASO % 0.5 % (0.0-1.0); EOS # 0.1 10^3/uL (0.0-0.5); EOS % 2.9 % (0.0-3.0); HEMOGLOBIN 11.4 g/dl (12.0-15.5); LYMPH % 23.9 % (24.0-44.0); MEAN CORPUSCULAR HEMOGLOBIN 32.7 pg (27.0-33.0); MEAN CORPUSCULAR HGB CONC 33.5 g/dl (32.0-36.5); MEAN CORPUSCULAR VOLUME 97.4 fl (80.0-96.0); MONO # 0.3 10^3/uL (0.0-0.8); NEUTROPHILS # 2.7 10^3/uL (1.5-8.5); NEUTROPHILS % 65.5 % (36.0-66.0); PLATELET COUNT, AUTOMATED 162 10^3/uL (150-450); RED BLOOD COUNT 3.49 10^6/uL (4.00-5.40); WHITE BLOOD COUNT 4.1 10^3/uL (4.0-10.0)
[2020-12-14 13:18] LABS: ALBUMIN 2.6 GM/DL (3.2-5.2); CALCIUM LEVEL 8.3 MG/DL (8.8-10.2); CREATININE FOR GFR 1.23 MG/DL (0.55-1.30); GLOMERULAR FILTRATION RATE 45.6 (>39); MAGNESIUM LEVEL 2.2 MG/DL (1.8-2.4); PHOSPHORUS LEVEL 3.7 MG/DL (2.5-4.9); POTASSIUM SERUM 3.9 MEQ/L (3.5-5.1); PREALBUMIN 26.2 MG/DL (20.0-40.0)
== END ==
LOC: M SHH 12:14
PROVIDERS: ATTEND Internal Medicine Gastroenterology
DX: E44.0 Moderate protein-calorie malnutrition (principal); K50.018 Crohn's disease of small intestine with other complication

== ENCOUNTER → 2020-12-21 | Outpatient (REF) | payer MEDICARE ==
[2020-12-21 15:45] LABS: BASO % 0.6 % (0.0-1.0); EOS # 0.1 10^3/uL (0.0-0.5); HEMATOCRIT 36.5 % (36.0-47.0); HEMOGLOBIN 11.4 g/dl (12.0-15.5); LYMPH # 1.1 10^3/uL (1.5-5.0); MEAN CORPUSCULAR HGB CONC 31.2 g/dl (32.0-36.5); MEAN CORPUSCULAR VOLUME 102.5 fl (80.0-96.0); MONO # 0.4 10^3/uL (0.0-0.8); MONO % 8.4 % (2.0-8.0); NEUTROPHILS % 63.8 % (36.0-66.0); PLATELET COUNT, AUTOMATED 190 10^3/uL (150-450); RED BLOOD COUNT 3.56 10^6/uL (4.00-5.40); WHITE BLOOD COUNT 4.7 10^3/uL (4.0-10.0)
[2020-12-21 16:16] LABS: ALBUMIN 2.6 GM/DL (3.2-5.2); CALCIUM LEVEL 8.4 MG/DL (8.8-10.2); CREATININE FOR GFR 1.4 MG/DL (0.55-1.30); GLOMERULAR FILTRATION RATE 39.2 (>39); MAGNESIUM LEVEL 2.2 MG/DL (1.8-2.4); PHOSPHORUS LEVEL 4.4 MG/DL (2.5-4.9); POTASSIUM SERUM 3.9 MEQ/L (3.5-5.1); PREALBUMIN 19.4 MG/DL (20.0-40.0)
== END ==
LOC: M SHH 15:19
PROVIDERS: ATTEND Internal Medicine Gastroenterology
DX: E44.0 Moderate protein-calorie malnutrition (principal); K50.018 Crohn's disease of small intestine with other complication

== ENCOUNTER → 2020-12-29 | Outpatient (REF) | payer MEDICARE ==
[2020-12-29 14:58] LABS: BASO % 0.7 % (0.0-1.0); EOS # 0.1 10^3/uL (0.0-0.5); HEMATOCRIT 37.7 % (36.0-47.0); HEMOGLOBIN 12.1 g/dl (12.0-15.5); LYMPH # 0.8 10^3/uL (1.5-5.0); LYMPH % 18.7 % (24.0-44.0); MEAN CORPUSCULAR HEMOGLOBIN 32.4 pg (27.0-33.0); MEAN CORPUSCULAR HGB CONC 32.1 g/dl (32.0-36.5); MEAN CORPUSCULAR VOLUME 100.8 fl (80.0-96.0); MONO # 0.4 10^3/uL (0.0-0.8); NEUTROPHILS # 3.2 10^3/uL (1.5-8.5); NEUTROPHILS % 70.4 % (36.0-66.0); PLATELET COUNT, AUTOMATED 174 10^3/uL (150-450); RED BLOOD COUNT 3.74 10^6/uL (4.00-5.40); WHITE BLOOD COUNT 4.5 10^3/uL (4.0-10.0)
[2020-12-29 15:34] LABS: ALBUMIN 2.8 GM/DL (3.2-5.2); CALCIUM LEVEL 8.6 MG/DL (8.8-10.2); CREATININE FOR GFR 1.37 MG/DL (0.55-1.30); GLOMERULAR FILTRATION RATE 40.2 (>39); MAGNESIUM LEVEL 2.3 MG/DL (1.8-2.4); PHOSPHORUS LEVEL 4.5 MG/DL (2.5-4.9); POTASSIUM SERUM 4.8 MEQ/L (3.5-5.1); PREALBUMIN 24.5 MG/DL (20.0-40.0)
== END ==
LOC: M SHH 14:23
PROVIDERS: ATTEND Internal Medicine Gastroenterology
DX: E44.0 Moderate protein-calorie malnutrition (principal); K50.018 Crohn's disease of small intestine with other complication

== ENCOUNTER → 2021-01-04 | Outpatient (REF) | payer MEDICARE ==
[2021-01-04 14:33] LABS: BASO % 0.3 % (0.0-1.0); EOS # 0.1 10^3/uL (0.0-0.5); EOS % 3.2 % (0.0-3.0); HEMATOCRIT 37.4 % (36.0-47.0); HEMOGLOBIN 12.2 g/dl (12.0-15.5); LYMPH % 27.8 % (24.0-44.0); MEAN CORPUSCULAR HEMOGLOBIN 32.4 pg (27.0-33.0); MEAN CORPUSCULAR HGB CONC 32.6 g/dl (32.0-36.5); MEAN CORPUSCULAR VOLUME 99.2 fl (80.0-96.0); MONO # 0.3 10^3/uL (0.0-0.8); NEUTROPHILS # 2.3 10^3/uL (1.5-8.5); NEUTROPHILS % 61.7 % (36.0-66.0); PLATELET COUNT, AUTOMATED 165 10^3/uL (150-450); RED BLOOD COUNT 3.77 10^6/uL (4.00-5.40); WHITE BLOOD COUNT 3.7 10^3/uL (4.0-10.0)
[2021-01-04 15:36] LABS: ALBUMIN 2.7 GM/DL (3.2-5.2); CALCIUM LEVEL 8.8 MG/DL (8.8-10.2); CREATININE FOR GFR 1.33 MG/DL (0.55-1.30); GLOMERULAR FILTRATION RATE 41.6 (>39); MAGNESIUM LEVEL 2.2 MG/DL (1.8-2.4); PHOSPHORUS LEVEL 3.2 MG/DL (2.5-4.9); POTASSIUM SERUM 3.7 MEQ/L (3.5-5.1); PREALBUMIN 21.9 MG/DL (20.0-40.0)
== END ==
LOC: M LAB REF 13:57
PROVIDERS: ATTEND Internal Medicine Gastroenterology
DX: E44.0 Moderate protein-calorie malnutrition (principal); K50.018 Crohn's disease of small intestine with other complication

== ENCOUNTER → 2021-01-11 | Outpatient (REF) | payer MEDICARE ==
[~2021-01-11] MED LIST changes: +CALC1CAP31; -CEFD1CAP8 PO; +CEFD300C41 PO; +LOSA25TA13 PO; -LOSA25TA14 PO; +LOSA50TA28 PO; -LOSA50TA88 PO; +OXYC-600 PO; -OXYC1TAB PO; +VALS40TA9 PO
[2021-01-11 11:47] LABS: BASO % 0.5 % (0.0-1.0); EOS # 0.2 10^3/uL (0.0-0.5); EOS % 4.3 % (0.0-3.0); HEMATOCRIT 37.8 % (36.0-47.0); HEMOGLOBIN 12.5 g/dl (12.0-15.5); LYMPH # 0.8 10^3/uL (1.5-5.0); LYMPH % 22.4 % (24.0-44.0); MEAN CORPUSCULAR HEMOGLOBIN 32.5 pg (27.0-33.0); MEAN CORPUSCULAR HGB CONC 33.1 g/dl (32.0-36.5); MEAN CORPUSCULAR VOLUME 98.2 fl (80.0-96.0); MONO # 0.3 10^3/uL (0.0-0.8); NEUTROPHILS # 2.4 10^3/uL (1.5-8.5); NEUTROPHILS % 65.5 % (36.0-66.0); PLATELET COUNT, AUTOMATED 161 10^3/uL (150-450); RED BLOOD COUNT 3.85 10^6/uL (4.00-5.40); WHITE BLOOD COUNT 3.7 10^3/uL (4.0-10.0)
[2021-01-11 12:14] LABS: ALBUMIN 2.6 GM/DL (3.2-5.2); CALCIUM LEVEL 8.8 MG/DL (8.8-10.2); CREATININE FOR GFR 1.14 MG/DL (0.55-1.30); GLOMERULAR FILTRATION RATE 49.7 (>39); PHOSPHORUS LEVEL 3.2 MG/DL (2.5-4.9); POTASSIUM SERUM 3.8 MEQ/L (3.5-5.1); PREALBUMIN 21.6 MG/DL (20.0-40.0)
== END ==
LOC: M SHH 10:49
PROVIDERS: ATTEND Internal Medicine Gastroenterology
DX: E44.0 Moderate protein-calorie malnutrition (principal); K50.018 Crohn's disease of small intestine with other complication

== ENCOUNTER → 2021-01-18 | Outpatient (CLI) | payer MEDICARE ==
[~2021-01-18] MED LIST changes: -CALC1CAP31; +CEFD1CAP8 PO; -CEFD300C41 PO; +ISOVUE-300 61% 50ML VIAL As Ordered ONE; +LIDOCAINE 1% MDV 20ML VIAL As Ordered ONE; -LOSA25TA13 PO; +LOSA25TA14 PO; -LOSA50TA28 PO; +LOSA50TA88 PO; -OXYC-600 PO; +OXYC1TAB PO; -VALS40TA9 PO
[2021-01-18 12:50] VITALS: BP 179/73
--- NOTE | 2021-01-18 17:00 | REP ---
INDICATION: PICC EXCHANGE. COMPARISON: None. TECHNIQUE: The procedure was performed under the direct supervision of Dr. Rudd. The risks and benefits of the procedure were explained to the patient and informed consent was obtained. The existing insertion site and catheter were prepped and draped in a sterile fashion. 3 mL of 1% lidocaine was used as a local anesthetic. Using fluoroscopic guidance and last image hold technology, a 0.018 guidewire was inserted into the catheter and the catheter was removed over the guidewire. A 5.5 Italian dilator and peel-away sheath was inserted over the guidewire. A 5.5 Italian dual lumen catheter was cut to a length of 36 cm. The dilator was removed and the catheter was inserted over the guidewire, however, the could not be advanced beyond the level of the axillary region. Multiple attempts were tried. A venogram was performed using a total of 2 mL of Isovue 300. Images demonstrate tortuosity and possible spasm of the vessel. A 0.018 Glidewire was then inserted and advanced to the SVC. The catheter was then inserted over the guidewire with the tip ending in the SVC. The peel-away sheath was removed and the catheter was flushed with heparinized saline as per hospital protocol. The catheter was affixed to the skin and a sterile dressing was applied. Estimated blood loss: Less than 1 mL The patient tolerated the procedure well and there were no immediate complications. 3.9 minutes of fluoroscopy time was utilized for this procedure. FINDINGS: None IMPRESSION: PICC line exchange, right brachial vein, with the tip ending in the SVC. <Electronically signed by Gideon Austin > 01/18/21 1641 <Electronically signed by Ned Rudd > 01/18/21 1653
== END ==
LOC: M IRPRO 11:31
PROVIDERS: ATTEND Internal Medicine Gastroenterology
DX: K50.018 Crohn's disease of small intestine with other complication (principal); E44.0 Moderate protein-calorie malnutrition; N18.31 Chronic kidney disease, stage 3a; I12.9 Hypertensive chronic kidney disease with stage 1 through stage 4 chronic kidney disease, or unspecified chronic kidney disease; N25.81 Secondary hyperparathyroidism of renal origin
CPT/HCPCS: 36580; 77001; 80048; 82040; 83735; 83970; 84100; 84134; 84550; 85025; C1751; J1642; J1644; Q9967

== ENCOUNTER → 2021-01-18 | Outpatient (REF) | payer MEDICARE ==
[~2021-01-18] MED LIST changes: -ISOVUE-300 61% 50ML VIAL As Ordered ONE; -LIDOCAINE 1% MDV 20ML VIAL As Ordered ONE
[2021-01-18 13:37] LABS: BASO % 0.4 % (0.0-1.0); EOS # 0.1 10^3/uL (0.0-0.5); EOS % 2.7 % (0.0-3.0); HEMATOCRIT 39.8 % (36.0-47.0); HEMOGLOBIN 13.3 g/dl (12.0-15.5); LYMPH # 0.7 10^3/uL (1.5-5.0); LYMPH % 14.8 % (24.0-44.0); MEAN CORPUSCULAR HEMOGLOBIN 32.8 pg (27.0-33.0); MEAN CORPUSCULAR HGB CONC 33.4 g/dl (32.0-36.5); MEAN CORPUSCULAR VOLUME 98.3 fl (80.0-96.0); MONO # 0.3 10^3/uL (0.0-0.8); MONO % 6.7 % (2.0-8.0); NEUTROPHILS # 3.6 10^3/uL (1.5-8.5); NEUTROPHILS % 75.2 % (36.0-66.0); PLATELET COUNT, AUTOMATED 191 10^3/uL (150-450); RED BLOOD COUNT 4.05 10^6/uL (4.00-5.40); WHITE BLOOD COUNT 4.8 10^3/uL (4.0-10.0)
[2021-01-18 14:13] LABS: ALBUMIN 2.9 GM/DL (3.2-5.2); CALCIUM LEVEL 8.6 MG/DL (8.8-10.2); CREATININE FOR GFR 1.26 MG/DL (0.55-1.30); GLOMERULAR FILTRATION RATE 44.3 (>39); MAGNESIUM LEVEL 2.1 MG/DL (1.8-2.4); PHOSPHORUS LEVEL 2.9 MG/DL (2.5-4.9); POTASSIUM SERUM 4.1 MEQ/L (3.5-5.1)
[2021-01-19 14:09] LABS: PTH INTACT 136.6 PG/ML (18.5-88.0); URIC ACID 5.6 MG/DL (2.6-6.0)
== END ==
LOC: M SHH 13:09
PROVIDERS: ATTEND Internal Medicine Gastroenterology
DX: E44.0 Moderate protein-calorie malnutrition (principal); K50.018 Crohn's disease of small intestine with other complication

== ENCOUNTER → 2021-01-25 | Outpatient (REF) | payer MEDICARE ==
[2021-01-25 11:07] LABS: HEMATOCRIT 38.2 % (36.0-47.0); HEMOGLOBIN 12.7 g/dl (12.0-15.5); MEAN CORPUSCULAR HEMOGLOBIN 32.6 pg (27.0-33.0); MEAN CORPUSCULAR HGB CONC 33.2 g/dl (32.0-36.5); MEAN CORPUSCULAR VOLUME 98.2 fl (80.0-96.0); PLATELET COUNT, AUTOMATED 172 10^3/uL (150-450); RED BLOOD COUNT 3.89 10^6/uL (4.00-5.40); WHITE BLOOD COUNT 3.9 10^3/uL (4.0-10.0)
[2021-01-25 11:44] LABS: ALBUMIN 2.7 GM/DL (3.2-5.2); CALCIUM LEVEL 8.7 MG/DL (8.8-10.2); CREATININE FOR GFR 1.31 MG/DL (0.55-1.30); GLOMERULAR FILTRATION RATE 42.3 (>39); POTASSIUM SERUM 3.8 MEQ/L (3.5-5.1); PREALBUMIN 19.8 MG/DL (20.0-40.0)
== END ==
LOC: M SHH 10:55
PROVIDERS: ATTEND Internal Medicine Gastroenterology
DX: K50.018 Crohn's disease of small intestine with other complication (principal)

== ENCOUNTER → 2021-02-01 | Outpatient (REF) | payer MEDICARE ==
[2021-02-01 16:15] LABS: BASO % 0.8 % (0.0-1.0); EOS # 0.1 10^3/uL (0.0-0.5); EOS % 3.6 % (0.0-3.0); HEMATOCRIT 37.8 % (36.0-47.0); HEMOGLOBIN 12.4 g/dl (12.0-15.5); LYMPH # 0.6 10^3/uL (1.5-5.0); LYMPH % 17.8 % (24.0-44.0); MEAN CORPUSCULAR HGB CONC 32.8 g/dl (32.0-36.5); MEAN CORPUSCULAR VOLUME 97.7 fl (80.0-96.0); MONO # 0.3 10^3/uL (0.0-0.8); MONO % 8.1 % (2.0-8.0); NEUTROPHILS # 2.5 10^3/uL (1.5-8.5); NEUTROPHILS % 69.4 % (36.0-66.0); PLATELET COUNT, AUTOMATED 167 10^3/uL (150-450); RED BLOOD COUNT 3.87 10^6/uL (4.00-5.40); WHITE BLOOD COUNT 3.6 10^3/uL (4.0-10.0)
[2021-02-01 16:47] LABS: ALBUMIN 2.7 GM/DL (3.2-5.2); CALCIUM LEVEL 8.5 MG/DL (8.8-10.2); CREATININE FOR GFR 1.16 MG/DL (0.55-1.30); GLOMERULAR FILTRATION RATE 48.6 (>39); MAGNESIUM LEVEL 2.1 MG/DL (1.8-2.4); POTASSIUM SERUM 3.9 MEQ/L (3.5-5.1); PREALBUMIN 16.9 MG/DL (20.0-40.0)
== END ==
LOC: M SHH 15:29
PROVIDERS: ATTEND Internal Medicine Gastroenterology
DX: E44.0 Moderate protein-calorie malnutrition (principal); K50.018 Crohn's disease of small intestine with other complication

== ENCOUNTER 2021-02-05 08:23 | Outpatient (CLI) | payer MEDICARE ==
[~2021-02-05] VITALS: Ht 154.9 cm; Wt 50.0 kg
[2021-02-05 08:30] VITALS: BP 118/58
[2021-02-05] MEDS ORDERED: VEDOLIZUMAB 300 MG in NS 250 ML IV ONE (08:30)
[2021-02-05] MEDS ORDERED: SODIUM CHLORIDE 0.9% INJ 10 ML SYR IV PRN (09:15)
[2021-02-05] MEDS ORDERED: SODIUM CHLORIDE 0.9% INJ 10 ML SYR IV SCH (18:00)
[2021-02-09] MEDS ORDERED: CALC1CAP31 (10:30)
[2021-02-09] MEDS ORDERED: VALS40TA9 PO (10:30)
== END 2021-02-05 09:40 | disposition home or self-care (01) ==
LOC: M INFU 08:23
PROVIDERS: ATTEND Internal Medicine Gastroenterology
DX: K50.90 Crohn's disease, unspecified, without complications (principal); Z88.2 Allergy status to sulfonamides; Z88.8 Allergy status to other drugs, medicaments and biological substances
CPT/HCPCS: 96365; J1642

== ENCOUNTER → 2021-02-08 | Outpatient (REF) | payer MEDICARE ==
[~2021-02-08] MED LIST changes: +CALC1CAP31; +VALS40TA9 PO
[2021-02-08 10:48] LABS: BASO % 0.6 % (0.0-1.0); EOS # 0.2 10^3/uL (0.0-0.5); EOS % 4.8 % (0.0-3.0); HEMATOCRIT 35.9 % (36.0-47.0); HEMOGLOBIN 12.1 g/dl (12.0-15.5); LYMPH # 0.8 10^3/uL (1.5-5.0); LYMPH % 22.3 % (24.0-44.0); MEAN CORPUSCULAR HEMOGLOBIN 32.8 pg (27.0-33.0); MEAN CORPUSCULAR HGB CONC 33.7 g/dl (32.0-36.5); MEAN CORPUSCULAR VOLUME 97.3 fl (80.0-96.0); MONO # 0.3 10^3/uL (0.0-0.8); NEUTROPHILS # 2.2 10^3/uL (1.5-8.5); PLATELET COUNT, AUTOMATED 183 10^3/uL (150-450); RED BLOOD COUNT 3.69 10^6/uL (4.00-5.40); WHITE BLOOD COUNT 3.6 10^3/uL (4.0-10.0)
[2021-02-08 11:11] LABS: ALBUMIN 2.5 GM/DL (3.2-5.2); CALCIUM LEVEL 8.6 MG/DL (8.8-10.2); CREATININE FOR GFR 1.13 MG/DL (0.55-1.30); GLOMERULAR FILTRATION RATE 50.1 (>39); PHOSPHORUS LEVEL 3.2 MG/DL (2.5-4.9); POTASSIUM SERUM 3.9 MEQ/L (3.5-5.1); PREALBUMIN 18.3 MG/DL (20.0-40.0)
== END ==
LOC: M SHH 10:29
PROVIDERS: ATTEND Internal Medicine Gastroenterology
DX: E44.0 Moderate protein-calorie malnutrition (principal); K50.018 Crohn's disease of small intestine with other complication

== ENCOUNTER → 2021-02-15 | Outpatient (CLI) | payer MEDICARE | LOC: M LABSMTC 10:26 | PROVIDERS: ATTEND Anesthesiology | DX: Z01.812 Encounter for preprocedural laboratory examination (principal); Z20.822 Contact with and (suspected) exposure to COVID-19 ==

== ENCOUNTER → 2021-02-15 | Outpatient (REF) | payer MEDICARE ==
[2021-02-15 13:44] LABS: BASO % 0.3 % (0.0-1.0); EOS # 0.1 10^3/uL (0.0-0.5); EOS % 3.6 % (0.0-3.0); HEMATOCRIT 38.1 % (36.0-47.0); HEMOGLOBIN 12.6 g/dl (12.0-15.5); LYMPH # 0.9 10^3/uL (1.5-5.0); LYMPH % 22.2 % (24.0-44.0); MEAN CORPUSCULAR HEMOGLOBIN 32.3 pg (27.0-33.0); MEAN CORPUSCULAR HGB CONC 33.1 g/dl (32.0-36.5); MEAN CORPUSCULAR VOLUME 97.7 fl (80.0-96.0); MONO # 0.4 10^3/uL (0.0-0.8); MONO % 10.9 % (2.0-8.0); NEUTROPHILS # 2.4 10^3/uL (1.5-8.5); NEUTROPHILS % 62.7 % (36.0-66.0); PLATELET COUNT, AUTOMATED 173 10^3/uL (150-450); WHITE BLOOD COUNT 3.9 10^3/uL (4.0-10.0)
[2021-02-15 15:55] LABS: ALBUMIN 2.7 GM/DL (3.2-5.2); CALCIUM LEVEL 9.1 MG/DL (8.8-10.2); CREATININE FOR GFR 1.14 MG/DL (0.55-1.30); GLOMERULAR FILTRATION RATE 49.6 (>39); PHOSPHORUS LEVEL 3.2 MG/DL (2.5-4.9); POTASSIUM SERUM 4.4 MEQ/L (3.5-5.1)
[2021-02-15 17:33] LABS: PREALBUMIN 20.6 MG/DL (20.0-40.0)
== END ==
LOC: M SHH 13:15
PROVIDERS: ATTEND Internal Medicine Gastroenterology
DX: Z01.812 Encounter for preprocedural laboratory examination (principal); E44.0 Moderate protein-calorie malnutrition; K50.018 Crohn's disease of small intestine with other complication; Z20.822 Contact with and (suspected) exposure to COVID-19
CPT/HCPCS: 80048; 82040; 83735; 84100; 84134; 85025; U0002

== ENCOUNTER 2021-02-19 08:13 | Day surgery (SDC) | payer MEDICARE ==
[~2021-02-19] VITALS: Ht 154.9 cm; Wt 50.7 kg
[~2021-02-19 08:13] MED LIST changes: +LIDOCAINE 2% 100MG/5ML SDV (FOR ANES.) As Ordered ONE; +NS 1,000 ML IV ONE; +ePHEDrine SULFATE 25 MG/5 ML(5MG/ML) SYRINGE As Ordered ONE; +propofoL 200 MG/20 ML VIAL As Ordered ONE
--- OUTSIDE RECORDS SUMMARY | 2021-02-19 08:27 | CCD ---
Author Author [facility] Organization [facility] Address Unknown Phone Unavailable Care Team Providers Care Loom Technician Name Role Phone Ana Babcock Unavailable PROBLEMS Type Condition ICD9-CM Code HVF20-OM Code Onset Dates Condition S tatus W/U Status Risk SNOMED Code Notes Problem Adrenal insufficiency E27.40 Active confirmed 128752510 Problem Magnesium disorder E83.40 Active confirmed 4 72245084 Problem Medicare annual wellness visit, subsequent Z00.00 Active confirmed 339115063 Problem Vitamin D deficiency disease E55.9 Active confirme d 91178068 Problem CKD (chronic kidney disease), stage III N18.3 Active confirmed 252246406 Problem Hypoglycemia after GI (gastrointestinal) surgery K 91.2 Active confirmed 209207822 Problem Cholestatic jaundice R17 Active confirmed 78730995 Problem Other chronic pain G89.29 Active confirmed 8 6200935 Problem Protein calorie malnutrition E46 Active confirme d 138413374 Problem 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 Active confirmed 37438 01 Problem Hypomagnesemia E83.42 Active confirmed 36955 5004 Problem Crohn's disease, unspecified, with fistula K50.913 Active confirmed 88057130 Problem Mixed hyperlipidemia E78.2 Active confirmed 015172391 Problem Other disorders of plasma-protein metabo lism, 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 Active confirmed 70377082 Problem Acute deep vein thrombosis (DVT) of othe r vein of right upper extremity I82.621 Active confirmed 015283202934999 Problem Hypertensive heart disease without heart failure I 11.9 Active confirmed 42610123 Problem Vitamin D deficiency, unspecified E55.9 Active con firmed 64067737 Problem Edema, unspecified type R60.9 Active confirmed 368244183 Problem Osteoporosis/osteopenia increased risk Z91.89 A ctive confirmed 797229073 Problem Osteochondrosis M93.90 Active confirmed 0660 18234 Problem Other iron deficiency anemias D50.8 Active confirm ed 96542614 Problem Esophageal dysphagia R13.10 Active confirmed 17099119 Problem Vitamin B12 deficiency anemia due to intrinsic f actor deficiency D51.0 Active confirmed 82963425 Problem SK (seborrheic keratosis) L82.1 Active confirmed 915775955 Problem Hypokalemia E87.6 Active confirmed 34279708 Problem Thyromegaly E01.0 Active confirmed 6800923 Problem Diarrhea, unspecified R19.7 Active confirmed 48160360 Problem Basal cell carcinoma of chest C44.519 Active confir med 947177449 Problem 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 pn eumoniae] as the cause of diseases classified elsewhere B96.1 Active confirmed 750600197 Problem Anemia of chronic disease D63.8 Active confirmed 296281852 Problem Intra-abdominal infection B99.9 Active confirmed 755467996 Problem Arthritis of left knee M17.12 Active confirmed 6271265204071205 Problem Hypoglycemia E16.2 Active confirmed 3371284 03 Problem B12 deficiency E53.8 Active confirmed 43441 4004 Problem Infection of peripherally in serted central catheter (PICC), subsequent encounter T80.219D Active confirmed 593095306 ALLERGIES Allergen (clinical drug ingredient) Drug/Non Drug Allergy do cumented on EMR Reaction Allergy Type Onset Date Status mesalamine Lialda(NDC Code:[address]-92) Nausea/Vomiting, diarrhea Drug Allergy Active sulfacetamide Sulfacetamide Sodium(NDC Code:[address]-39) Rash Drug Allergy Active budesonide Entocort EC(NDC Code:[address]-67) gi upset Drug Allerg y Active balsalazide Colazal(NDC Code:[address]-90) irritability Drug Allergy Active ENCOUNTERS from 1945 to 2020-12-18 Encounter Location Date Provider Diagnosis [facility] [address] [place] [id number] Nov, [facility] Neuropathy of both feet G57.93 IMMUNIZATIONS Vaccine Route Administration Date Status Vitamin B-12 1000mcg/1mL Cyanocobalamin IM Intramuscular Apr 25, 2019 Administered Vitamin B-12 1000mcg/1mL Cyanocobalamin IM Intramuscular June 242019 Administered Vitamin B-12 1000mcg/1mL Cyanocobalamin IM Intramuscular May 30, 2019 Administered Vitamin B-12 1000mcg/1mL Cyanocobalamin IM Intramuscular June Administered Vitamin B-12 1000mcg/1mL Cyanocobalamin IM Intramuscular Dec Administered Vitamin B-12 1000mcg/1mL Cyanocobalamin IM Intramuscular Jan 23, 2019 Administered Vitamin B-12 1000mcg/1mL Cyanocobalamin IM Intramuscular Feb 26, 2019 Administered Vitamin B-12 1000mcg/1mL Cyanocobalamin IM Intramuscular Mar 28, 2019 Administered Influenza 6mo & up Fluzone IM Intramuscular Jan 13, 2010 Admi nistered Influenza (High Dose 65 & up) IM Intramuscular Feb 11, 2015 A dministered Pneumococcal Adult 0.5mL Pneumovax 23 Unknown August 06, 2004 Administered TDAP 0.5mL (Boostrix) IM Intramuscular Mar 29, 2011 Administe red Pneumococcal 0.5mL Prevnar 13 IM Intramuscular Jun 04, 2014 A dministered Influenza 6mo & up Fluzone IM Intramuscular Jan 07, 2014 Admi nistered Influenza 6mo & up Fluzone IM Intramuscular Feb 06, 2013 Admi nistered Influenza 6mo & up Fluzone IM Intramuscular Feb 08, 2012 Admi nistered Influenza 6mo & up Fluzone IM Intramuscular Jan 26, 2011 Admi nistered Vitamin B-12 1000mcg/1mL Cyanocobalamin IM Intramuscular August 27, 2019 Administered Vitamin B-12 1000mcg/1mL Cyanocobalamin IM Intramuscular September Administered Vitamin B-12 1000mcg/1mL Cyanocobalamin IM Intramuscular October Administered Vitamin B-12 1000mcg/1mL Cyanocobalamin IM Intramuscular May 19, 2015 Administered Influenza 18 yrs & older Flublok Unknown Jan 29, 2020 Administered Pneumococcal Adult 0.5mL Pneumovax 23 IM Intramuscular October 13, 2015 Administered Influenza 18 yrs & older Flublok IM Intramuscular Feb 14, 2018 Administered Vitamin B-12 1000mcg/1mL Cyanocobalamin IM Intramuscular Dec Administered Influenza 18 yrs & older Flublok IM Intramuscular Feb 05, 2019 Administered Vitamin B-12 1000mcg/1mL Cyanocobalamin IM Intramuscular Mar 25, 2016 Administered Vitamin B-12 1000mcg/1mL Cyanocobalamin IM Intramuscular Feb 06, 2020 Administered Vitamin B-12 1000mcg/1mL Cyanocobalamin SC Subcutaneous Feb 11, 2015 Administered Vitamin B-12 1000mcg/1mL Cyanocobalamin IM Intramuscular Mar 06, 2020 Administered Vitamin B-12 1000mcg/1mL Cyanocobalamin Unknown Mar 12, 2015 Administered Vitamin B-12 1000mcg/1mL Cyanocobalamin IM Intramuscular May 14, 2020 Administered Vitamin B-12 1000mcg/1mL Cyanocobalamin IM Intramuscular Apr 10, 2015 Administered Vitamin B-12 1000mcg/1mL Cyanocobalamin IM Intramuscular Apr 07, 2020 Administered Vitamin B-12 1000mcg/1mL Cyanocobalamin IM Intramuscular May 03, 2016 Administered Vitamin B-12 1000mcg/1mL Cyanocobalamin IM Intramuscular June Administered Vitamin B-12 1000mcg/1mL Cyanocobalamin IM Intramuscular August 26, 2016 Administered Vitamin B-12 1000mcg/1mL Cyanocobalamin IM Intramuscular Jun 16, 2020 Administered Vitamin B-12 1000mcg/1mL Cyanocobalamin IM Intramuscular July Administered Vitamin B-12 1000mcg/1mL Cyanocobalamin IM Intramuscular August 28, 2020 Administered Vitamin B-12 1000mcg/1mL Cyanocobalamin IM Intramuscular September Administered Vitamin B-12 1000mcg/1mL Cyanocobalamin IM Intramuscular Dec Administered Vitamin B-12 1000mcg/1mL Cyanocobalamin IM Intramuscular Mar 23, 2017 Administered Vitamin B-12 1000mcg/1mL Cyanocobalamin IM Intramuscular Apr 21, 2017 Administered Vitamin B-12 1000mcg/1mL Cyanocobalamin IM Intramuscular May 23, 2017 Administered Vitamin B-12 1000mcg/1mL Cyanocobalamin IM Intramuscular July 232016 Administered Vitamin B-12 1000mcg/1mL Cyanocobalamin IM Intramuscular Joann 13 , 2021 Administered Vitamin B-12 1000mcg/1mL Cyanocobalamin IM Intramuscular September Administered Vitamin B-12 1000mcg/1mL Cyanocobalamin IM Intramuscular October Administered Vitamin B-12 1000mcg/1mL Cyanocobalamin IM Intramuscular Nov 24, 2016 Administered Vitamin B-12 1000mcg/1mL Cyanocobalamin IM Intramuscular Jun 21, 2017 Administered Vitamin B-12 1000mcg/1mL Cyanocobalamin IM Intramuscular June 232017 Administered Vitamin B-12 1000mcg/1mL Cyanocobalamin IM Intramuscular July 242017 Administered Vitamin B-12 1000mcg/1mL Cyanocobalamin IM Intramuscular Feb 14, 2018 Administered Vitamin B-12 1000mcg/1mL Cyanocobalamin IM Intramuscular Mar 14, 2018 Administered Vitamin B-12 1000mcg/1mL Cyanocobalamin IM Intramuscular Apr 13, 2018 Administered Vitamin B-12 1000mcg/1mL Cyanocobalamin IM Intramuscular Jun 20, 2018 Administered Vitamin B-12 1000mcg/1mL Cyanocobalamin IM Intramuscular September 13, 2017 Administered Vitamin B-12 1000mcg/1mL Cyanocobalamin IM Intramuscular September Administered Vitamin B-12 1000mcg/1mL Cyanocobalamin IM Intramuscular Dec Administered Vitamin B-12 1000mcg/1mL Cyanocobalamin IM Intramuscular Nov 29, 2017 Administered Vitamin B-12 1000mcg/1mL Cyanocobalamin IM Intramuscular October Administered Vitamin B-12 1000mcg/1mL Cyanocobalamin IM Intramuscular September Administered Vitamin B-12 1000mcg/1mL Cyanocobalamin IM Intramuscular Nov 23, 2018 Administered SOCIAL HISTORY Tobacco Use: Social History Observation Description Date Details (start date - stop date) Never Smoker Sex Assigned At : Social History Observation Description Sex Assigned At Unknown Education: Question Answer Notes Level of Education: Finished High School Language: Question Answer Notes Languages spoken: Armenian Quaker: Question Answer Notes Quaker 12 Muslim Sexual Hx: Question Answer Notes Had sex in the last 12 months (vaginal, oral, or anal)? No Have you ever had an STD? No Alcohol Screening: Question Answer Notes Did you have a drink containing alcohol in the past year? No Points 0 Interpretation Negative Tobacco Use: Question Answer Notes Are you a: never smoker REASON FOR REFERRAL No Information VITAL SIGNS No information MEDICATIONS Medication SIG (Take, Route, Frequency, Duration) Notes Start Da te End Date Status Hydrocortisone 10 MG 1 tab Orally Twice a day for 90 day(s) Active Pantoprazole Sodium 40 MG 1 tablet Orally Once a day for 30 Days Active Diphenoxylate-Atropine 2.5-0.025 MG (Schedule V Drug) Oral for 15 Active Calcitriol 0.25 MCG Oral for 90 Act chantelle Cyanocobalamin 1000 MCG 1 cc intramuscularly once a month Active Blood Glucose Test - as directed In Vitro once a day as directed for 25 days Jan, Active TPN Electrolytes - as directed Intravenous Active Lancets - as directed once a day as directed for 30 days Jan, Active Valsartan 40 MG 1 tablet Orally Daily for 30 day(s) Jul Active Glucometer as directed as directed for 90 day(s) Jan, Active cefTRIAXone Sodium 2 GM as directed Intravenous Not-Taking Vitamin D 1000 UNIT 1 tablet Orally BID Active Losartan Potassium 50 MG 1 tablet Orally Daily Not-Taking oxyCODONE-Acetaminophen 5-325 MG 1 tablet as needed Or ally MDD 4 every 6 hrs as needed, MDD=2 for 30 day(s) Nov, Acti ve PROCEDURES No Information RESULTS No Results REASON FOR VISIT refill MEDICAL (GENERAL) HISTORY Type Description Date Medical History anemia (iron defic) required transfusions and IV iron ; last 01/09 Medical History crohns disease--colo 06/07; a dmitted 05/09: has enteric-enteric and enteric-vaginal fistulae, on TPN. Was on Humira, was d/c after repeated infection/abscesses. Saw Dr Santillan/colorectal sx 2017, he does niot feel she would respond to surgical resection of fistulas, advised medical tx. Sees [facility] 2018, colorectal surgery (Dr Bright Ontiveros); extensive surgery 06/12 with fistulectyomies and ioliostomy revision; starting Entivio per Dr Callejas Medical History b12 deficiency (02/24) --gets B12 shots here monthly Medical History hiatal hernia with gerd Medical History gout Medical History hypertension Medical History vitamin d def (severe) 01/29 Medical History seroneg rheumatoid arthritis? Medical History Erosive osteoarthrits L hand per x-ray Medical History Osteopenia per DEXA 12/2008; 01/06 DEXA showed sig worsening, FRAX risk /3.5%, started tx 02/05, repeat DEXA ~ 01/11 (per 2017 ACP guidelines) Medical History ulcerated psuedopolyp 06/01 colonoscopy Medical History fatty liver CT 08/04 Medical History GERD with chronic cough Medical History Enterococcal bacteremia (2 + bld cx) 06/22 Medical History adrenal insufficiency, admit [facility] 03/09 with hypotension, hyponatremia. ACTH was low. Antiadrenal antibodies were neg. Saw endo/[facility], dx is questionable, but per 11/07 note felt that the dx is "probable adrenal insufficiency" Medical History Colostomy Medical History Cholestatic jaundice--liver bx 05/11 (complicated by subcapsular bleed)--followed by [facility]/GI Medical History RUE DVT after rt sided Hickm an catheter 01/09, started on Xarelto; [place] removed 01/09--plan 3 mo of Xarelto; was d/c 04/10 Medical History echo 06/12: EF 65%, ao sclerosis, small p ericardial effusion Medical History 03/12 UGI- enlarged thyroid pressing on esophagus- thyroid US 03/12 essentially nl, 4 mm nodule Medical History CKD 3, followed by nephro/[facility] Medical History 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 Long) 05/2007 Surgical History No personal or FHx of severe reaction to anesthesia Surgical History Colonoscopy 09/2004 Surgical History Expl. lap, lysis of adhesion s, takedown of duodenal colic fistula, R hemicolectomy, partial omentectomy, ileocolic anastamosis(Crohn's) Dr. Koo 03/2001 Surgical History Colonoscopy - Chronic coliti s with mild activity; more active Crohn's in 11/2010, 06/07 Surgical History iliostomy 06/09 Surgical History iliostomy repair 06/09 Surgical History abcess drained flank 07/07 Surgical History drain inserted to abcess in adb 08/07 Surgical History colonoscopy through stoma 10/07 Surgical History left knee surgery-infection removed 2015 Surgical History bowel resection, fistulectomy-- [facility] 06/04/18 Hospitalization History intrabdominal abscess 10/0910/14/13 Hospitalization History crohns disease 05/01- Hospitalization History kidney issues 03/21-03/24/16,04/24-07/08 Hospitalization History [facility] fistula 03/10 Hospitalization History [facility] chest pain 02/08 Hospitalization History infection bladder x2 01/2020 Goals Section No Information Health Concerns No Information MEDICAL EQUIPMENT No Information MENTAL STATUS No Information FUNCTIONAL STATUS No Information ASSESSMENTS Encounter Date Diagnosis Assessment Notes Treatment Notes Treatm ent Clinical Notes Nov, Neuropathy of both feet (ICD-10 - G57.93) PLAN OF TREATMENT Medication Medication Name Sig Start Date Stop Date oxyCODONE-Acetaminophen 5-325 MG 1 tablet as needed Or ally MDD 4 every 6 hrs as needed, MDD=2 for 30 day(s) Nov, Valsartan 40 MG 1 tablet Orally Daily for 30 day(s) Jul, Next Appt Details Provider Name:Cezar Olvera, 2020-12 09:00:00 AM, [address], , [place], [id number], Provider Name:Cezar Olvera, 2021-02 09:00:00 AM, [address], , [place], [address], Insurance Providers Payer Name Payer Address Payer Phone Insured Name Patient Relati onship to Insured Coverage Start Date Coverage End Date MEDICARE COMPLETE [employer] [address] [address] [facility] [id number] PARENT,ELIZA MALONEY self
--- OUTSIDE RECORDS SUMMARY | 2021-02-19 08:27 | CCD ---
Author Author [facility] Organization [facility] Address Unknown Phone Unavailable Care Team Providers Care Manager Flight Operations Name Role Phone Cezar Olvera Unavailable PROBLEMS Type Condition ICD9-CM Code [id number] Code Onset Dates Condition S tatus W/U Status Risk SNOMED Code Notes Problem Adrenal insufficiency E27.40 Active confirmed 098011014 Problem Magnesium disorder E83.40 Active confirmed 4 46898483 Problem Medicare annual wellness visit, subsequent Z00.00 Active confirmed 805723206 Problem Vitamin D deficiency disease E55.9 Active confirme d 22926572 Problem CKD (chronic kidney disease), stage III N18.3 Active confirmed 592337197 Problem Hypoglycemia after GI (gastrointestinal) surgery K 91.2 Active confirmed 411475541 Problem Cholestatic jaundice R17 Active confirmed 25059180 Problem Other chronic pain G89.29 Active confirmed 8 7261075 Problem Protein calorie malnutrition E46 Active confirme d 882939820 Problem 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 Active confirmed 21887 01 Problem Hypomagnesemia E83.42 Active confirmed 36269 5004 Problem Crohn's disease, unspecified, with fistula K50.913 Active confirmed 69962494 Problem Mixed hyperlipidemia E78.2 Active confirmed 389098960 Problem Other disorders of plasma-protein metabo lism, 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 Active confirmed 71067271 Problem Acute deep vein thrombosis (DVT) of othe r vein of right upper extremity I82.621 Active confirmed 731377884235262 Problem Hypertensive heart disease without heart failure I 11.9 Active confirmed 49295601 Problem Vitamin D deficiency, unspecified E55.9 Active con firmed 33186016 Problem Edema, unspecified type R60.9 Active confirmed 085748040 Problem Osteoporosis/osteopenia increased risk Z91.89 A ctive confirmed 632586923 Problem Osteochondrosis M93.90 Active confirmed 2401 86679 Problem Other iron deficiency anemias D50.8 Active confirm ed 75161143 Problem Esophageal dysphagia R13.10 Active confirmed 01355997 Problem Vitamin B12 deficiency anemia due to intrinsic f actor deficiency D51.0 Active confirmed 40809110 Problem SK (seborrheic keratosis) L82.1 Active confirmed 593806016 Problem Hypokalemia E87.6 Active confirmed 51969279 Problem Thyromegaly E01.0 Active confirmed 0124465 Problem Diarrhea, unspecified R19.7 Active confirmed 14263835 Problem Basal cell carcinoma of chest C44.519 Active confir med 512458798 Problem 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 pn eumoniae] as the cause of diseases classified elsewhere B96.1 Active confirmed 763287219 Problem Anemia of chronic disease D63.8 Active confirmed 882611933 Problem Intra-abdominal infection B99.9 Active confirmed 674328504 Problem Arthritis of left knee M17.12 Active confirmed 2958992595450731 Problem Hypoglycemia E16.2 Active confirmed 3495190 03 Problem B12 deficiency E53.8 Active confirmed 54895 4004 Problem Infection of peripherally in serted central catheter (PICC), subsequent encounter T80.219D Active confirmed 381399377 ALLERGIES Allergen (clinical drug ingredient) Drug/Non Drug Allergy do cumented on EMR Reaction Allergy Type Onset Date Status mesalamine Lialda(NDC Code:[address]-14) Nausea/Vomiting, diarrhea Drug Allergy Active sulfacetamide Sulfacetamide Sodium(NDC Code:[address]-69) Rash Drug Allergy Active budesonide Entocort EC(NDC Code:[address]-72) gi upset Drug Allerg y Active balsalazide Colazal(NDC Code:[address]-64) irritability Drug Allergy Active ENCOUNTERS from 1945 to 2020-12-09 Encounter Location Date Provider Diagnosis [address] [place] [address] Nov, 2020 Cezar Ferrariestebanjag Vitamin B12 deficiency anemia due to int rinsic factor deficiency D51.0 ; Crohn's disease, unspecified, with fistula K50.913 ; Hypertensive heart disease without heart failure I11.9 ; Other iron deficiency anemias D50.8 ; CKD (chronic kidney disease), stage III N18.3 and Neuropathy of both feet G57.93 IMMUNIZATIONS Vaccine Route Administration Date Status Vitamin B-12 1000mcg/1mL Cyanocobalamin IM Intramuscular Feb 26, 2019 Administered Influenza 18 yrs & older Flublok IM Intramuscular Feb 05, 2019 Administered Vitamin B-12 1000mcg/1mL Cyanocobalamin IM Intramuscular Mar 28, 2019 Administered Vitamin B-12 1000mcg/1mL Cyanocobalamin IM Intramuscular Apr 25, 2019 Administered Vitamin B-12 1000mcg/1mL Cyanocobalamin IM Intramuscular September Administered Vitamin B-12 1000mcg/1mL Cyanocobalamin IM Intramuscular Nov 23, 2018 Administered Vitamin B-12 1000mcg/1mL Cyanocobalamin IM Intramuscular Dec Administered Vitamin B-12 1000mcg/1mL Cyanocobalamin IM Intramuscular Jan 23, 2019 Administered Influenza 6mo & up Fluzone IM Intramuscular Jan 13, 2010 Admi nistered Pneumococcal Adult 0.5mL Pneumovax 23 IM Intramuscular October 13, 2015 Administered Pneumococcal Adult 0.5mL Pneumovax 23 Unknown August [...] nistered Vitamin B-12 1000mcg/1mL Cyanocobalamin IM Intramuscular June 242019 Administered Vitamin B-12 1000mcg/1mL Cyanocobalamin IM Intramuscular May 30, 2019 Administered Vitamin B-12 1000mcg/1mL Cyanocobalamin IM Intramuscular June Administered Vitamin B-12 1000mcg/1mL Cyanocobalamin IM Intramuscular Apr 10, 2015 Administered Vitamin B-12 1000mcg/1mL Cyanocobalamin IM Intramuscular Mar 06, 2020 Administered Vitamin B-12 1000mcg/1mL Cyanocobalamin IM Intramuscular May 19, 2015 Administered Vitamin B-12 1000mcg/1mL Cyanocobalamin IM Intramuscular May 14, 2020 Administered Vitamin B-12 1000mcg/1mL Cyanocobalamin IM Intramuscular Dec Administered Vitamin B-12 1000mcg/1mL Cyanocobalamin IM Intramuscular Apr 07, 2020 Administered Vitamin B-12 1000mcg/1mL Cyanocobalamin IM Intramuscular Mar 25, 2016 Administered Vitamin B-12 1000mcg/1mL Cyanocobalamin IM Intramuscular August 27, 2019 Administered Influenza (High Dose 65 & up) IM Intramuscular Feb 11, 2015 A dministered Vitamin B-12 1000mcg/1mL Cyanocobalamin IM Intramuscular September Administered Vitamin B-12 1000mcg/1mL Cyanocobalamin SC Subcutaneous Feb 11, 2015 Administered Vitamin B-12 1000mcg/1mL Cyanocobalamin IM Intramuscular October Administered Vitamin B-12 1000mcg/1mL Cyanocobalamin Unknown Mar 12, 2015 Administered Vitamin B-12 1000mcg/1mL Cyanocobalamin IM Intramuscular Feb 06, 2020 Administered Vitamin B-12 1000mcg/1mL Cyanocobalamin IM [...] Cyanocobalamin IM Intramuscular Feb 14, 2018 Administered Influenza 18 yrs & older Flublok IM Intramuscular Feb 14, 2018 Administered Vitamin B-12 1000mcg/1mL Cyanocobalamin IM Intramuscular Mar 14, 2018 Administered Vitamin B-12 1000mcg/1mL Cyanocobalamin IM Intramuscular September 13, 2017 Administered Vitamin B-12 1000mcg/1mL Cyanocobalamin IM Intramuscular September Administered Vitamin B-12 1000mcg/1mL Cyanocobalamin IM Intramuscular Nov 29, 2017 Administered Influenza 18 yrs & older Flublok Unknown Jan 29, 2020 Administered Vitamin B-12 1000mcg/1mL Cyanocobalamin IM Intramuscular Apr 13, 2018 Administered Vitamin B-12 1000mcg/1mL Cyanocobalamin IM Intramuscular Jun 20, 2018 Administered Vitamin B-12 1000mcg/1mL Cyanocobalamin IM Intramuscular October Administered SOCIAL HISTORY Tobacco Use: Social History Observation Description Date Details (start date - stop date) Never Smoker Sex Assigned At : Social History Observation Description Sex Assigned At Unknown Education: Question Answer Notes Level of Education: Finished High School Language: Question Answer Notes Languages spoken: Greenlandic Zoroastrianism: Question Answer Notes Zoroastrianism 12 Buddhist Sexual Hx: Question Answer Notes Had sex in the last 12 months (vaginal, oral, or anal)? No Have you ever had an STD? No Alcohol Screening: Question Answer Notes Did you have a drink containing alcohol in the past year? No Points 0 Interpretation Negative Tobacco Use: Question Answer Notes Are you a: never smoker REASON FOR REFERRAL No Information VITAL SIGNS Weight 115 lbs Nov, Height 62 in Nov, BMI 21.03 kg/m2 Nov, Heart Rate 94 /min Nov, Respiratory Rate 18 /min Nov, Temperature 97.5 degrees Fahrenheit Nov, Oximetry 100 Nov, Blood pressure systolic 136 mm Hg Nov, Blood pressure diastolic 78 mm Hg Nov, MEDICATIONS Medication SIG (Take, Route, Frequency, Duration) Notes Start Da te End Date Status Glucometer as directed as directed for 90 day(s) Jan, Active Calcitriol 0.25 MCG Oral for 90 Act chantelle Diphenoxylate-Atropine 2.5-0.025 MG (Schedule V Drug) Oral for 15 Active oxyCODONE-Acetaminophen 5-325 MG 1 tablet as needed Or ally MDD 4 every 6 hrs as needed, MDD=2 for 30 day(s) Jun, Acti ve Cyanocobalamin 1000 MCG 1 cc intramuscularly once a month Active TPN Electrolytes - as directed Intravenous Active Hydrocortisone 10 MG 1 tab Orally Twice a day for 90 day(s) Active Pantoprazole Sodium 40 MG 1 tablet Orally Once a day for 30 Days Active cefTRIAXone Sodium 2 GM as directed Intravenous Not-Taking Losartan Potassium 50 MG 1 tablet Orally Daily Not-Taking Blood Glucose Test - as directed In Vitro once a day as directed for 25 days Jan, Active Vitamin D 1000 UNIT 1 tablet Orally BID Active Lancets - as directed once a day as directed for 30 days Jan, Active Valsartan 40 MG 1 tablet Orally Daily for 30 day(s) Jul Active PROCEDURES No Information RESULTS No Results REASON FOR VISIT 3 month MEDICAL (GENERAL) HISTORY Type Description Date Medical History anemia (iron defic) required transfusions and IV iron ; last 01/09 Medical History crohns disease--colo 06/07; a dmitted 05/09: has enteric-enteric and enteric-vaginal fistulae, on TPN. Was on Humira, was d/c after repeated infection/abscesses. Saw Dr Santillan/colorectal sx 2017, he does niot feel she would respond to surgical resection of fistulas, advised medical tx. Sees [facility] 2018, colorectal surgery (Dr Bright [...] 01/06 DEXA showed sig worsening, FRAX risk 18/3.5%, started tx 02/05, repeat DEXA ~ 01/11 (per 2017 ACP guidelines) Medical History ulcerated psuedopolyp 06/01 colonoscopy Medical History fatty liver CT 08/04 Medical History GERD with chronic cough Medical History Enterococcal bacteremia (2 + bld cx) 06/22 6 Medical History adrenal insufficiency, admit chevy [facility] 03/09 with hypotension, hyponatremia. ACTH was low. Antiadrenal antibodies were neg. Saw endo/[facility], dx is questionable, but per 11/07 note felt that the dx is "probable adrenal insufficiency" Medical History Colostomy Medical History Cholestatic jaundice--liver bx 05/11 (complicated by subcapsular bleed)--followed by [facility]/GI Medical History RUE DVT after rt sided [...] removed 2015 Surgical History bowel resection, fistulectomy-- [facility] 06/04/18 Hospitalization History intrabdominal abscess 10/0910/14/13 Hospitalization [...] Treatment Notes Treatm ent Clinical Notes Nov, Vitamin B12 deficiency anemi a due to intrinsic factor deficiency (ICD-10 - D51.0) Nov, Crohn's disease, unspecified, with fistula (ICD- 10 - K50.913) notes inc selling left lower abd lateral to ostomy, now having problems with adherence of bag. May need imaging, will defer to GI Nov, Hypertensive heart disease without heart failure (ICD-10 - I11.9) Nov, Other iron deficiency anemias (ICD-10 - D50.8) Nov, CKD (chronic kidney disease), stage III (ICD-10 - N18.3) Nov, Neuropathy of both feet (ICD-10 - G57.93) PLAN OF TREATMENT Medication Medication Name Sig Start Date Stop Date Valsartan 40 MG 1 tablet Orally Daily for 30 day(s) Jul, oxyCODONE-Acetaminophen 5-325 MG 1 tablet as needed Or ally MDD 4 every 6 hrs as needed, MDD=2 for 30 day(s) Jun, Treatment Notes Assessment Notes Clinical Notes Crohn's disease, unspecified, with fistula notes inc selling left lower abd lateral to ostomy, now having problems with adherence of bag. May need imaging, will defer to GI Treatment Notes Test Name Order Date Med: Vitamin B-12 1000mcg/1mL IM Cyanocobalamin 12-04 Next Appt Details 3 Months Reason: Provider Name:Cezar Olvera, 2020-12 09:00:00 AM, [id number], , [place], [address], Provider Name:Cezar Olvera, 2021-02 09:00:00 AM, [id number], , [place], [address], Insurance Providers Payer Name Payer Address Payer Phone Insured Name Patient Relati onship to Insured Coverage Start Date Coverage End Date MEDICARE COMPLETE [facility] [address] [address] [facility] [id number] PARENTELIZA self
--- OUTSIDE RECORDS SUMMARY | 2021-02-19 08:27 | CCD ---
Author Author [facility] Organization [facility] Address Unknown Phone Unavailable Care Team Providers Care Ultimate [employer]ops Trainer Name Role Phone Cezar Olvera Unavailable PROBLEMS Type Condition ICD9-CM Code [id number] Code Onset Dates Condition S tatus W/U Status Risk SNOMED Code Notes Problem Adrenal insufficiency E27.40 Active confirmed 245934390 Problem Magnesium disorder E83.40 Active confirmed 4 31100266 Problem Medicare annual wellness visit, subsequent Z00.00 Active confirmed 336280261 Problem Vitamin D deficiency disease E55.9 Active confirme d 01938066 Problem CKD (chronic kidney disease), stage III N18.3 Active confirmed 023454289 Problem Hypoglycemia after GI (gastrointestinal) surgery K 91.2 Active confirmed 016273715 Problem Cholestatic jaundice R17 Active confirmed 95839893 Problem Other chronic pain G89.29 Active confirmed 8 0170423 Problem Protein calorie malnutrition E46 Active confirme d 182891217 Problem 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 Active confirmed 34325 01 Problem Hypomagnesemia E83.42 Active confirmed 50882 5004 Problem Crohn's disease, unspecified, with fistula K50.913 Active confirmed 38522676 Problem Mixed hyperlipidemia E78.2 Active confirmed 621733648 Problem Other disorders of plasma-protein metabo lism, 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 Active confirmed 91886061 Problem Acute deep vein thrombosis (DVT) of othe r vein of right upper extremity I82.621 Active confirmed 054918011926188 Problem Hypertensive heart disease without heart failure I 11.9 Active confirmed 17714469 Problem Vitamin D deficiency, unspecified E55.9 Active con firmed 88460946 Problem Edema, unspecified type R60.9 Active confirmed 984855043 Problem Osteoporosis/osteopenia increased risk Z91.89 A ctive confirmed 842102746 Problem Osteochondrosis M93.90 Active confirmed 2407 24080 Problem Other iron deficiency anemias D50.8 Active confirm ed 06663149 Problem Esophageal dysphagia R13.10 Active confirmed 46592821 Problem Vitamin B12 deficiency anemia due to intrinsic f actor deficiency D51.0 Active confirmed 72300526 Problem SK (seborrheic keratosis) L82.1 Active confirmed 970158995 Problem Hypokalemia E87.6 Active confirmed 59889313 Problem Thyromegaly E01.0 Active confirmed 7269074 Problem Diarrhea, unspecified R19.7 Active confirmed 63956215 Problem Basal cell carcinoma of chest C44.519 Active confir med 830411954 Problem 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 pn eumoniae] as the cause of diseases classified elsewhere B96.1 Active confirmed 947745080 Problem Anemia of chronic disease D63.8 Active confirmed 077337922 Problem Intra-abdominal infection B99.9 Active confirmed 154908089 Problem Arthritis of left knee M17.12 Active confirmed 0505123214514634 Problem Hypoglycemia E16.2 Active confirmed 1677923 03 Problem B12 deficiency E53.8 Active confirmed 55542 4004 Problem Infection of peripherally in serted central catheter (PICC), subsequent encounter T80.219D Active confirmed 552557743 ALLERGIES Allergen (clinical drug ingredient) Drug/Non Drug Allergy do cumented on EMR Reaction Allergy Type Onset Date Status mesalamine Lialda(NDC Code:[address]-50) Nausea/Vomiting, diarrhea Drug Allergy Active sulfacetamide Sulfacetamide Sodium(NDC Code:[address]-29) Rash Drug Allergy Active budesonide Entocort EC(NDC Code:[address]-53) gi upset Drug Allerg y Active balsalazide Colazal(NDC Code:[address]-66) irritability Drug Allergy Active ENCOUNTERS from 1945 to 2021-02-04 Encounter Location Date Provider Diagnosis [address] [place] [address] Jan, 2021 Cezar Olvera Vitamin B12 deficiency anemia due to int rinsic factor deficiency D51.0 IMMUNIZATIONS Vaccine Route Administration Date Status Vitamin [...] IM Intramuscular Jan 26, 2011 Admi nistered Influenza 18 yrs & older Flublok Unknown Jan 29, 2020 Administered Influenza 18 yrs & older Flublok IM Intramuscular Feb 14, 2018 Administered Influenza 18 yrs & older Flublok IM Intramuscular Feb 05, 2019 Administered Vitamin B-12 1000mcg/1mL Cyanocobalamin IM Intramuscular May 19, 2015 Administered Vitamin B-12 1000mcg/1mL Cyanocobalamin IM Intramuscular Mar 06, 2020 Administered Pneumococcal Adult 0.5mL Pneumovax 23 IM Intramuscular October 13, 2015 Administered Vitamin B-12 1000mcg/1mL Cyanocobalamin IM Intramuscular May 14, 2020 Administered Vitamin B-12 1000mcg/1mL Cyanocobalamin IM Intramuscular Dec Administered Vitamin B-12 1000mcg/1mL Cyanocobalamin IM Intramuscular Apr 07, 2020 Administered Vitamin B-12 1000mcg/1mL Cyanocobalamin IM Intramuscular Mar 25, 2016 Administered Vitamin B-12 1000mcg/1mL Cyanocobalamin IM Intramuscular August 27, 2019 Administered Vitamin B-12 1000mcg/1mL Cyanocobalamin SC Subcutaneous Feb 11, 2015 Administered Vitamin B-12 1000mcg/1mL Cyanocobalamin IM Intramuscular September Administered Vitamin B-12 1000mcg/1mL Cyanocobalamin Unknown Mar [...] Vitamin B-12 1000mcg/1mL Cyanocobalamin IM Intramuscular Feb 04, 2021 Administered Vitamin B-12 1000mcg/1mL Cyanocobalamin IM [...] School Language: Question Answer Notes Languages spoken: Telugu Confucianist: Question Answer Notes Confucianist 12 Judaism Sexual Hx: Question Answer Notes Had sex [...] for 30 day(s) Nov, Acti ve PROCEDURES from 1945 to 2021-02-04 Procedure Date Ordered Result Body Site Med: Vitamin B-12 1000mcg/1mL IM Cyanocobalamin 2021-02-04 N/A RESULTS No Results REASON FOR VISIT B12 MEDICAL (GENERAL) HISTORY Type Description Date Medical History anemia (iron defic) required transfusions and IV iron ; last 01/09 Medical History crohns disease--colo 06/07; a dmitted 05/09: has enteric-enteric and enteric-vaginal fistulae, on TPN. Was on Humira, was d/c after repeated infection/abscesses. Saw Dr Santillan/colorectal sx 2017, he does niot feel she would respond to surgical resection of fistulas, advised medical tx. Sees [facility] 2018, colorectal surgery (Dr Bright [...] 6 Medical History adrenal insufficiency, admit chevy [facility] 03/09 with hypotension, hyponatremia. ACTH was [...] removed 2015 Surgical History bowel resection, fistulectomy-- [facility] 06/04/18 Hospitalization History intrabdominal abscess 10/0910/14/13 Hospitalization [...] Notes Treatment Notes Treatm ent Clinical Notes Jan, Vitamin B12 deficiency anemi a due to intrinsic factor deficiency (ICD-10 - D51.0) PLAN OF TREATMENT Medication Medication Name Sig Start Date Stop Date oxyCODONE-Acetaminophen 5-325 MG 1 tablet as needed Or ally MDD 4 every 6 hrs as needed, MDD=2 for 30 day(s) Nov, Valsartan 40 MG 1 tablet Orally Daily for 30 day(s) Jul, Next Appt Details Provider Name:Cezar Olvera, 2021-02 09:00:00 AM, [address], , [place], [address], Insurance Providers Payer Name Payer Address Payer Phone Insured Name Patient Relati onship to Insured Coverage Start Date Coverage End Date MEDICARE COMPLETE [facility] [address] [address] [facility] [id number] PARENT,ELIZA MALONEY self
--- OUTSIDE RECORDS SUMMARY | 2021-02-19 08:27 | CCD ---
Author Author [facility] Organization [facility] Address Unknown Phone Unavailable Care Team Providers Care Aircrewman Name Role Phone Cezar Olvera Unavailable PROBLEMS Type Condition ICD9-CM Code [id number] Code Onset Dates Condition S tatus W/U Status Risk SNOMED Code Notes Problem Adrenal insufficiency E27.40 Active confirmed 855772271 Problem Magnesium disorder E83.40 Active confirmed 4 99108614 Problem Medicare annual wellness visit, subsequent Z00.00 Active confirmed 096094310 Problem Vitamin D deficiency disease E55.9 Active confirme d 24158756 Problem CKD (chronic kidney disease), stage III N18.3 Active confirmed 498045415 Problem Hypoglycemia after GI (gastrointestinal) surgery K 91.2 Active confirmed 926296574 Problem Cholestatic jaundice R17 Active confirmed 20328614 Problem Other chronic pain G89.29 Active confirmed 8 6171138 Problem Protein calorie malnutrition E46 Active confirme d 267346874 Problem 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 Active confirmed 49066 01 Problem Hypomagnesemia E83.42 Active confirmed 75923 5004 Problem Crohn's disease, unspecified, with fistula K50.913 Active confirmed 79497012 Problem Mixed hyperlipidemia E78.2 Active confirmed 654264593 Problem Other disorders of plasma-protein metabo lism, 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 Active confirmed 76934758 Problem Acute deep vein thrombosis (DVT) of othe r vein of right upper extremity I82.621 Active confirmed 971961940470499 Problem Hypertensive heart disease without heart failure I 11.9 Active confirmed 28196133 Problem Vitamin D deficiency, unspecified E55.9 Active con firmed 30594866 Problem Edema, unspecified type R60.9 Active confirmed 243600739 Problem Osteoporosis/osteopenia increased risk Z91.89 A ctive confirmed 913545664 Problem Osteochondrosis M93.90 Active confirmed 2409 98766 Problem Other iron deficiency anemias D50.8 Active confirm ed 85770568 Problem Esophageal dysphagia R13.10 Active confirmed 48645106 Problem Vitamin B12 deficiency anemia due to intrinsic f actor deficiency D51.0 Active confirmed 38078776 Problem SK (seborrheic keratosis) L82.1 Active confirmed 578767535 Problem Hypokalemia E87.6 Active confirmed 29028809 Problem Thyromegaly E01.0 Active confirmed 2384095 Problem Diarrhea, unspecified R19.7 Active confirmed 89801765 Problem Basal cell carcinoma of chest C44.519 Active confir med 845386525 Problem 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 pn eumoniae] as the cause of diseases classified elsewhere B96.1 Active confirmed 946904387 Problem Anemia of chronic disease D63.8 Active confirmed 003837749 Problem Intra-abdominal infection B99.9 Active confirmed 136012184 Problem Arthritis of left knee M17.12 Active confirmed 4287597170541277 Problem Hypoglycemia E16.2 Active confirmed 4443728 03 Problem B12 deficiency E53.8 Active confirmed 21835 4004 Problem Infection of peripherally in serted central catheter (PICC), subsequent encounter T80.219D Active confirmed 369002085 ALLERGIES Allergen (clinical drug ingredient) Drug/Non Drug Allergy do cumented on EMR Reaction Allergy Type Onset Date Status mesalamine Lialda(NDC Code:[address]-73) Nausea/Vomiting, diarrhea Drug Allergy Active sulfacetamide Sulfacetamide Sodium(NDC Code:[address]-89) Rash Drug Allergy Active budesonide Entocort EC(NDC Code:[address]-74) gi upset Drug Allerg y Active balsalazide Colazal(NDC Code:[address]-26) irritability Drug Allergy Active ENCOUNTERS from 1945 to 2021-01-25 Encounter Location Date Provider Diagnosis [address] [place] [address] Dec, 2020 Cezar Ferrarilinnette Vitamin B12 deficiency anemia due to int [...] 1000mcg/1mL Cyanocobalamin IM Intramuscular July 242017 Administered Influenza 18 yrs & older Flublok [...] School Language: Question Answer Notes Languages spoken: Macanese Jewish: Question Answer Notes [employer] Sexual Hx: Question Answer Notes Had sex [...] directed as directed for 90 day(s) Jan, 020 Active cefTRIAXone Sodium 2 GM as directed Intravenous Not-Taking Vitamin D 1000 UNIT 1 tablet Orally BID Active Losartan Potassium 50 MG 1 tablet Orally Daily Not-Taking oxyCODONE-Acetaminophen 5-325 MG 1 tablet as needed Or ally MDD 4 every 6 hrs as needed, MDD=2 for 30 day(s) Nov, Acti ve PROCEDURES from 1945 to 2021-01-25 Procedure Date Ordered Result Body Site Med: Vitamin B-12 1000mcg/1mL IM Cyanocobalamin 2021-01-05 N/A RESULTS No Results REASON FOR VISIT [...] resection of fistulas, advised medical tx. Sees [facility] 2018, colorectal surgery (Dr [...] 6 Medical History adrenal insufficiency, admit chevy [facility] 03/09 with hypotension, hyponatremia. ACTH was [...] removed 2015 Surgical History bowel resection, fistulectomy-- [facility] 06/04/18 Hospitalization History intrabdominal abscess 10/0910/14/13 [...] Notes Treatment Notes Treatm ent Clinical Notes Dec, Vitamin B12 deficiency anemi a due to intrinsic factor deficiency (ICD-10 - D51.0) PLAN OF TREATMENT Medication Medication Name Sig Start Date Stop Date oxyCODONE-Acetaminophen 5-325 MG 1 tablet as needed Or ally MDD 4 every 6 hrs as needed, MDD=2 for 30 day(s) Nov, Valsartan 40 MG 1 tablet Orally Daily for 30 day(s) Jul, Next Appt Details Provider Name:Cezar Wade, 2021-01 09:00:00 AM, [address], , [place], [id number], Provider Name:Cezar Olvera, 2021-02 09:00:00 AM, [address], , [place], [id number], Insurance Providers Payer Name Payer Address Payer Phone Insured Name Patient Relati onship to Insured Coverage Start Date Coverage End Date MEDICARE COMPLETE [employer] [address] [address] [facility] [id number] PARENT,ELIZA MALONEY self
--- OUTSIDE RECORDS SUMMARY | 2021-02-19 08:27 | CCD ---
Author Author [facility] Organization [facility] Address Unknown Phone Unavailable Care Team Providers Care Biology Teacher Name Role Phone Cezar Olevra Unavailable PROBLEMS Type Condition ICD9-CM Code [id number] Code Onset Dates Condition S tatus W/U Status Risk SNOMED Code Notes Problem Adrenal insufficiency E27.40 Active confirmed 986016894 Problem Magnesium disorder E83.40 Active confirmed 4 09648328 Problem Medicare annual wellness visit, subsequent Z00.00 Active confirmed 646036450 Problem Vitamin D deficiency disease E55.9 Active confirme d 69651339 Problem CKD (chronic kidney disease), stage III N18.3 Active confirmed 087611327 Problem Hypoglycemia after GI (gastrointestinal) surgery K 91.2 Active confirmed 626696564 Problem Cholestatic jaundice R17 Active confirmed 68446597 Problem Other chronic pain G89.29 Active confirmed 8 5380920 Problem Protein calorie malnutrition E46 Active confirme d 794027097 Problem 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 Active confirmed 55481 01 Problem Hypomagnesemia E83.42 Active confirmed 14878 5004 Problem Crohn's disease, unspecified, with fistula K50.913 Active confirmed 90221387 Problem Mixed hyperlipidemia E78.2 Active confirmed 166700564 Problem Other disorders of plasma-protein metabo lism, 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 Active confirmed 57110879 Problem Acute deep vein thrombosis (DVT) of othe r vein of right upper extremity I82.621 Active confirmed 274549215383313 Problem Hypertensive heart disease without heart failure I 11.9 Active confirmed 15623259 Problem Vitamin D deficiency, unspecified E55.9 Active con firmed 14801668 Problem Edema, unspecified type R60.9 Active confirmed 878529431 Problem Osteoporosis/osteopenia increased risk Z91.89 A ctive confirmed 102750286 Problem Osteochondrosis M93.90 Active confirmed 2406 54148 Problem Other iron deficiency anemias D50.8 Active confirm ed 20072790 Problem Esophageal dysphagia R13.10 Active confirmed 18783061 Problem Vitamin B12 deficiency anemia due to intrinsic f actor deficiency D51.0 Active confirmed 85973929 Problem SK (seborrheic keratosis) L82.1 Active confirmed 768588887 Problem Hypokalemia E87.6 Active confirmed 91871854 Problem Thyromegaly E01.0 Active confirmed 8464402 Problem Diarrhea, unspecified R19.7 Active confirmed 51376131 Problem Basal cell carcinoma of chest C44.519 Active confir med 676670715 Problem 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 pn eumoniae] as the cause of diseases classified elsewhere B96.1 Active confirmed 181330896 Problem Anemia of chronic disease D63.8 Active confirmed 077416049 Problem Intra-abdominal infection B99.9 Active confirmed 833579492 Problem Arthritis of left knee M17.12 Active confirmed 4325652502611059 Problem Hypoglycemia E16.2 Active confirmed 5951651 03 Problem B12 deficiency E53.8 Active confirmed 80400 4004 Problem Infection of peripherally in serted central catheter (PICC), subsequent encounter T80.219D Active confirmed 233372058 ALLERGIES Allergen (clinical drug ingredient) Drug/Non Drug Allergy do cumented on EMR Reaction Allergy Type Onset Date Status mesalamine Lialda(NDC Code:[address]-92) Nausea/Vomiting, diarrhea Drug Allergy Active sulfacetamide Sulfacetamide Sodium(NDC Code:[address]-69) Rash Drug Allergy Active budesonide Entocort EC(NDC Code:[address]-74) gi upset Drug Allerg y Active balsalazide Colazal(NDC Code:[address]-64) irritability Drug Allergy Active ENCOUNTERS from 1945 to 2020-12-09 Encounter Location Date Provider Diagnosis [address] [place] [address] Nov, 2020 Cezar Olvera Hypertensive heart disease without heart failure I11.9 IMMUNIZATIONS Vaccine Route Administration Date Status Vitamin [...] Language: Question Answer Notes Languages spoken: Armenian Caodaism: Question Answer Notes Caodaism 12 [employer] Sexual Hx: Question Answer Notes Had sex [...] Information RESULTS No Results REASON FOR VISIT valsartan MEDICAL (GENERAL) HISTORY Type Description Date Medical History anemia (iron defic) required transfusions and IV iron ; last 01/09 Medical History crohns disease--[place] 06/07; a dmitted 05/09: has enteric-enteric and enteric-vaginal fistulae, on TPN. Was on Humira, was d/c after repeated infection/abscesses. Saw Dr Santillan/colorectal sx 2017, he does niot feel she would respond to surgical resection of fistulas, advised medical tx. Sees [facility] 2018, colorectal surgery (Dr [...] 06/22 Medical History adrenal insufficiency, admit chevy [facility] 03/09 with hypotension, hyponatremia. ACTH was low. [...] removed 2015 Surgical History bowel resection, fistulectomy-- [facility] 06/04/18 Hospitalization History intrabdominal abscess 10/0910/14/13 [...] Treatment Notes Treatm ent Clinical Notes Nov, Hypertensive heart disease without heart failure (ICD-10 - I11.9) PLAN OF TREATMENT Medication Medication Name Sig Start Date Stop Date Valsartan 40 MG 1 tablet Orally Daily for 30 day(s) Jul, oxyCODONE-Acetaminophen 5-325 MG 1 tablet as needed Or ally MDD 4 every 6 hrs as needed, MDD=2 for 30 day(s) Jun, Next Appt Details Provider Name:Cezar Olvera, 2020-12 09:00:00 AM, [address], , [place], [id number], Provider Name:Cezar Olvera, 2021-02 09:00:00 AM, [address], , [place], [id number], Insurance Providers Payer Name Payer Address Payer Phone Insured Name Patient Relati onship to Insured Coverage Start Date Coverage End Date MEDICARE COMPLETE [employer] [address] [address] [facility] [id number] PARENT,ELIZA MALONEY self
--- OUTSIDE RECORDS SUMMARY | 2021-02-19 08:28 | CCD ---
Author Author [facility] Organization [facility] Address Unknown Phone Unavailable Care Team Providers Care Assistant Professor Of Communication Name Role Phone [facility], PA-C Unavailable Unavailabl e Fish, [facility], PA-C Unavailable Unavailabl e Fish, [facility], PA-C Unavailable Unavailabl e Fish, [facility], PA-C Unavailable Unavailabl e Fish, [facility], PA-C Unavailable Unavailabl e Fish, [facility], PA-C Unavailable Unavailabl e Fish, [facility], PA-C Unavailable Unavailabl e Fish, [facility], PA-C Unavailable Unavailabl e Fish, [facility], PA-C Unavailable Unavailabl e Fish, [facility], PA-C Unavailable Unavailabl e Fish, [facility], PA-C Unavailable Unavailabl e Fish, [facility], PA-C Unavailable Unavailabl e Fish, [facility], PA-C Unavailable Unavailabl e Fish, [facility], PA-C Unavailable Unavailabl e Fish, [facility], PA-C Unavailable Unavailabl e Fish, [facility], PA-C Unavailable Unavailabl e Fish, [facility], PA-C Unavailable Unavailabl e Fish, [facility], PA-C Unavailable Unavailabl e Fish, [facility], PA-C Unavailable Unavailabl e Fish, [facility], PA-C Unavailable Unavailabl e Fish, [facility], PA-C Unavailable Unavailabl e Fish, [facility], PA-C Unavailable Unavailabl e Fish, [facility], PA-C Unavailable Unavailabl e Fish, [facility], PA-C Unavailable Unavailabl e Fish, [facility], PA-C Unavailable Unavailabl e Fish, [facility], PA-C Unavailable Unavailabl e Fish, [facility], PA-C Unavailable Unavailabl e Fish, [facility], PA-C Unavailable Unavailabl e Fish, [facility], PA-C Unavailable Unavailabl e Fish, [facility], PA-C Unavailable Unavailabl e Fish, [facility], PA-C Unavailable Unavailabl e Fish, [facility], PA-C Unavailable Unavailabl e Fish, [facility], PA-C Unavailable Unavailabl e Fish, [facility], PA-C Unavailable Unavailabl e Fish, [facility], PA-C Unavailable Unavailabl e Fish, [facility], PA-C Unavailable Unavailabl e Cristina Denise Unavailable Cristina Denise Unavailable Brandi Santillan MD Unavailable Unavailable Brandi Santillan MD Unavailable Unavailable Brandi Santillan MD Unavailable Unavailable TyrellBrandi carranza MD Unavailable Unavailable Brandi Santillan MD Unavailable Unavailable Brandi Santillan MD Unavailable Unavailable Brandi Santillan MD Unavailable Unavailable Brandi Santillan MD Unavailable Unavailable Brandi Santillan MD Unavailable Unavailable Brandi Santillan MD Unavailable Unavailable Brandi Santillan MD Unavailable Unavailable Brandi Santillan MD Unavailable Unavailable Brandi Santillan MD Unavailable Unavailable Brandi Santillan MD Unavailable Unavailable Brandi Santillan MD Unavailable Unavailable Brandi Santillan MD Unavailable Unavailable Brandi Santillan MD Unavailable Unavailable Tyrell, A Jasson MD Unavailable Unavailable Tyrell, A Jasson MD Unavailable Unavailable Tyrell, A Jasson MD Unavailable Unavailable Tyrell, A Jasson MD Unavailable Unavailable Tyrell, A Jasson MD Unavailable Unavailable Tyrell, A Jasson MD Unavailable Unavailable Tyrell, A Jasson MD Unavailable Unavailable Tyrell, A Jasson MD Unavailable Unavailable Tyrell, A Jasson MD Unavailable Unavailable Tyrell, A Jasson MD Unavailable Unavailable Tyrell, A Jasson MD Unavailable Unavailable Tyrell, A Jasson MD Unavailable Unavailable Tyrell, A Jasson MD Unavailable Unavailable Tyrell, A Jasson MD Unavailable Unavailable Tyrell, A Jasson MD Unavailable Unavailable Tyrell, A Jasson MD Unavailable Unavailable Tyrell, A Jasson MD Unavailable Unavailable Tyrell, A Jasson MD Unavailable Unavailable Tyrell, A Jasson MD Unavailable Unavailable Tyrell, A Jasson MD Unavailable Unavailable Tyrell, A Jasson MD Unavailable Unavailable Tyrell, A Jasson MD Unavailable Unavailable Tyrell, A Jasson MD Unavailable Unavailable Tyrell, A Jasson MD Unavailable Unavailable Tyrell, A Jasson MD Unavailable Unavailable Tyrell, A Jasson MD Unavailable Unavailable Tyrell, A Jasson MD Unavailable Unavailable Tyrell, A Jasson MD Unavailable Unavailable Tyrell, A Jasson MD Unavailable Unavailable Tyrell, A Jasson MD Unavailable Unavailable Tyrell, A Jasson MD Unavailable Unavailable Tyrell, A Jasson MD Unavailable Unavailable Tyrell, A Jasson MD Unavailable Unavailable Tyrell, A Jasson MD Unavailable Unavailable Tyrell, A Jasson MD Unavailable Unavailable Tyrell, A Jasson MD Unavailable Unavailable Tyrell, A Jasson MD Unavailable Unavailable Tyrell, A Jasson MD Unavailable Unavailable Tyrell, A Jasson MD Unavailable Unavailable Tyrell, A Jasson MD Unavailable Unavailable Tyrell, A Jasson MD Unavailable Unavailable Tyrell, A Jasson MD Unavailable Unavailable Tyrell, A Jasson MD Unavailable Unavailable Tyrell, A Jasson MD Unavailable Unavailable Tyrell, A Jasson MD Unavailable Unavailable Tyrell, A Jasson MD Unavailable Unavailable Tyrell, A Jasson MD Unavailable Unavailable Tyrell, A Jasson MD Unavailable Unavailable Tyrell, A Jasson MD Unavailable Unavailable Tyrell, A Jasson MD Unavailable Unavailable Tyrell, A Jasson MD Unavailable Unavailable Tyrell, A Jasson MD Unavailable Unavailable Tyrell, A Jasson MD Unavailable Unavailable Tyrell, A Jasson MD Unavailable Unavailable Tyrell, A Jasson MD Unavailable Unavailable Tyrell, A Jasson MD Unavailable Unavailable Tyrell, A Jasson MD Unavailable Unavailable Brandi Santillan MD Unavailable Unavailable Brandi Santillan MD Unavailable Unavailable Brandi Santillan MD Unavailable Unavailable Brandi Santillan MD Unavailable Unavailable Brandi Santillan MD Unavailable Unavailable Brandi Santillan MD Unavailable Unavailable Brandi Santillan MD Unavailable Unavailable Brandi Santillan MD Unavailable Unavailable Brandi Santillan MD Unavailable Unavailable Brandi Santillan MD Unavailable Unavailable Brandi Santillan MD Unavailable Unavailable Jay MEJIA MD Unavailable Unavailable Jay MEJIA MD Unavailable Unavailable Jay MEJIA MD Unavailable Unavailable Jay MEJIA MD Unavailable Unavailable Jay MEJIA MD Unavailable Unavailable Jay MEJIA MD Unavailable Unavailable Jay MEJIA MD Unavailable Unavailable Jay MEJIA MD Unavailable Unavailable Jay MEJIA MD Unavailable Unavailable Jay MEJIA MD Unavailable Unavailable Jay MEJIA MD Unavailable Unavailable Jay MEJIA MD Unavailable Unavailable Jay MEJIA MD Unavailable Unavailable Jay MEIJA MD Unavailable Unavailable Jay MEJIA MD Unavailable Unavailable Jay MEJIA MD Unavailable Unavailable Jay MEJIA MD Unavailable Unavailable Jay MEJIA MD Unavailable Unavailable Jay MEJIA MD Unavailable Unavailable Jay MEJIA MD Unavailable Unavailable Jay MEJIA MD Unavailable Unavailable Jay MEJIA MD Unavailable Unavailable Jay MEJIA MD Unavailable Unavailable Jay MEJIA MD Unavailable Unavailable Jay MEJIA MD Unavailable Unavailable Jay MEJIA MD Unavailable Unavailable Jay MEJIA MD Unavailable Unavailable Jay MEJIA MD Unavailable Unavailable Jay MEJIA MD Unavailable Unavailable Jay MEJIA MD Unavailable Unavailable Jay MEJIA MD Unavailable Unavailable Jay MEJIA MD Unavailable Unavailable Jay MEJIA MD Unavailable Unavailable Re-disclosure Warning The records that you are about to access may contain information from federally-assisted alcohol or drug abuse programs. If such information is present, then the following federally mandated warning applies: This information has been disclosed to you from records protected by federal confidentiality rules (42 CFR part 2). The federal rules prohibit you from making any further disclosure of this information unless further disclosure is expressly permitted by the written consent of the person to whom it pertains or as otherwise permitted by 42 CFR part 2. A general authorization for the release of medical or other information is NOT sufficient for this purpose. The Federal rules restrict any use of the information to criminally investigate or prosecute any alcohol or drug abuse patient.The records that you are about to access may contain highly sensitive health information, the redisclosure of which is protected by Article 27-F of the [facility] Public Health law. If you continue you may have access to information: Regarding HIV / AIDS; Provided by facilities licensed or operated by the [facility] Office of Mental Health; or Provided by the [facility] Office for People With Developmental Disabilities. If such information is present, then the following [facility] mandated warning applies: This information has been disclosed to you from confidential records which are protected by state law. State law prohibits you from making any further disclosure of this information without the specific written consent of the person to whom it pertains, or as otherwise permitted by law. Any unauthorized further disclosure in violation of state law may result in a fine or correction sentence or both. A general authorization for the release of medical or other information is NOT sufficient authorization for further disc losure. Family History Family Member Name Family Member Gender Family Member Status Date o f Status Description Data Source(s) Unknown Unknown Problem [facility] patients mother Unknown Female Problem MEDENT ([facility]) Unknown Unknown Problem [facility] ([facility] Unknown Female Problem MED[facility] ([facility]) Encounters Encounter Providers Location Date Indications Data Source(s ) [place] [address] [facility] [place] [address] 02/04/2021 12:00:00 AM EDT eCW1 ([facility]) [place] [address] [facility] [place] [address] 01/05/2021 12:00:00 AM EDT eCW1 ([facility]) [place] [address] [facility] [address] 12/18/2020 12:00:00 AM EDT eCW1 ([facility]) [place] [address] [facility] [address] 12/08/2020 12:00:00 AM EDT eCW1 ([facility]) [place]patient [address] [facility] [address] 12/04/2020 12:00:00 AM EDT eCW1 ([facility]) [place]patient [address] [facility] [address] 11/03/2020 12:00:00 AM EDT eCW1 ([facility]) Unknown [address] [facility] [address] 11/03/2020 12:00:00 AM EDT eCW1 ([facility]) Unknown [address] [facility] [address] 10/28/2020 12:00:00 AM EDT eCW1 ([facility]) [place] [address] [facility] [address] 10/09/2020 12:00:00 AM EDT [facility] [place] [address] [facility] [address] 10/02/2020 12:00:00 AM EDT eCW1 [facility]) Outpatient [email or web address].[email or web address] 09/07/2020 12:00 :00 AM EDT - 09/07/2020 03:06:49 PM EDT [facility] Unknown [address] [facility] [address] 09/01/2020 12:00:00 AM EDT eCW1 ([facility]) Unknown [address] [facility] [address] 08/31/2020 12:00:00 AM EDT eCW1 ([facility]) Outpatient [address] [facility] [address] 08/28/2020 12:00:00 AM EDT eCW1 ([facility]) Outpatient [address] [facility] [address] 08/13/2020 12:00:00 AM EDT eCW1 ([facility]) Unknown [address] [facility] [address] 08/13/2020 12:00:00 AM EDT eCW1 ([facility]) Outpatient [address] [facility] [address] 07/30/2020 12:00:00 AM EDT eCW1 ([facility]) Unknown [address] [facility] [address] 07/30/2020 12:00:00 AM EDT eCW1 ([facility]) Unknown [address] [facility] [address] 07/08/2020 12:00:00 AM EDT eCW1 ([facility]) Unknown [address] [facility] [address] 07/06/2020 12:00:00 AM EDT eCW1 ([facility]) Unknown [address] [facility] [address] 07/04/2020 12:00:00 AM EST eCW1 ([facility]) Unknown [address] [facility] [address] 07/03/2020 12:00:00 AM EST eCW1 ([facility]) Unknown [address] [facility] [address] 06/29/2020 12:00:00 AM EST eCW1 ([facility]) [place] [address] [facility] [place] [address] 06/16/2020 12:00:00 AM EST eCW1 ([facility]) Office Visit Attender: Myriam ALMAGUER PA-C Physical Therapy 05/19/2020 08:15:00 AM EST MEDENT ([facility]) Out[place] [address] [facility] [address] 05/14/2020 12:00:00 AM EST eCW1 ([facility]) Office Visit Attender: Myriam ALMAGUER PA-C Physical Therapy 05/13/2020 09:45:00 AM EST MEDENT ([facility]) Unknown [address] [facility] [address] 04/30/2020 12:00:00 AM EST eCW1 ([facility]) Outpatient Attender: Myriam ALMAGUER PA-C Physical Therapy 04/29/2020 08:30:00 AM EST MEDENT ([facility]) Unknown [address] [facility] [place] [address] 04/21/2020 12:00:00 AM EST eCW1 ([facility]) Outpatient Attender: Cristina DeniseReferrer: YORDAN MEJIA MD [id number] 04/09/2020 12:00:00 AM EST - 04/09/2020 03:39:14 PM ES T Crohn's disease of both small and large intestine with other complication [facility] Crohn's disease of both small and large intestine with other complication Outpatient [address] [facility] [address] 04/07/2020 12:00:00 AM EST eCW1 ([facility]) Outpatient Attender: Myriam ALMAGUER PA-C Physical Therapy 03/25/2020 10:15:00 AM EST MEDENT ([facility]) Outpatient Attender: Jasson Santillan MD [place] 03/16/2020 01:00:00 P M EST MEDENT ([facility]) Out[place] [address] [facility] [place] [address] 03/06/2020 12:00:00 AM EST eCW1 ([facility]) Outpatient [address] [facility] [address] 02/20/2020 12:00:00 AM EDT eCW1 ([facility]) Unknown [address] [facility] [address] 02/17/2020 12:00:00 AM EDT eCW1 ([facility]) Unknown [address] [facility] [address] 02/14/2020 12:00:00 AM EDT eCW1 ([facility]) Unknown [address] [facility] [address] 02/14/2020 12:00:00 AM EDT eCW1 ([facility]) Outpatient [address] [facility] [address] 02/10/2020 12:00:00 AM EDT eCW1 ([facility]) Office Visit, Est Pt., Level 4 PC [address] [place] [address] 02/06/2020 12:00:00 AM EDT eCW1 ([facility]) Unknown [address] [facility] [address] 01/27/2020 12:00:00 AM EDT eCW1 ([facility]) Immunizations Vaccine Date Status Description Data Source(s) 02/04/2021 08:53:00 AM EDT completed e CW1 ([facility]) 01/05/2021 08:44:00 AM EDT completed e CW1 ([facility]) 01/05/2021 08:44:00 AM EDT completed e CW1 ([facility]) 11/03/2020 04:05:00 PM EDT completed e CW1 ([facility]) 11/03/2020 04:05:00 PM EDT completed e CW1 ([facility]) 11/03/2020 04:05:00 PM EDT completed e CW1 ([facility]) 11/03/2020 04:05:00 PM EDT completed e CW1 ([facility]) 11/03/2020 04:05:00 PM EDT completed e CW1 ([facility]) 11/03/2020 04:05:00 PM EDT completed e CW1 ([facility]) 11/03/2020 04:05:00 PM EDT completed e CW1 ([facility]) 10/02/2020 08:40:00 AM EDT completed e CW1 ([facility]) 10/02/2020 08:40:00 AM EDT completed e CW1 ([facility]) 10/02/2020 08:40:00 AM EDT completed e CW1 ([facility]) 10/02/2020 08:40:00 AM EDT completed e CW1 ([facility]) 10/02/2020 08:40:00 AM EDT completed e CW1 ([facility]) 10/02/2020 08:40:00 AM EDT completed e CW1 ([facility]) 10/02/2020 08:40:00 AM EDT completed e CW1 ([facility]) 10/02/2020 08:40:00 AM EDT completed e CW1 ([facility]) 10/02/2020 08:40:00 AM EDT completed e CW1 ([facility]) 10/02/2020 08:40:00 AM EDT completed e CW1 ([facility]) 08/28/2020 01:00:00 PM EDT completed e CW1 ([facility]) 08/28/2020 01:00:00 PM EDT completed e CW1 ([facility]) 08/28/2020 01:00:00 PM EDT completed e CW1 ([facility]) 08/28/2020 01:00:00 PM EDT completed e CW1 ([facility]) 08/28/2020 01:00:00 PM EDT completed e CW1 ([facility]) 08/28/2020 01:00:00 PM EDT completed e CW1 ([facility]) 08/28/2020 01:00:00 PM EDT completed e CW1 ([facility]) 08/28/2020 01:00:00 PM EDT completed e CW1 ([facility]) 08/28/2020 01:00:00 PM EDT completed e CW1 ([facility]) 08/28/2020 01:00:00 PM EDT completed e CW1 ([facility]) 08/28/2020 01:00:00 PM EDT completed e CW1 ([facility]) 08/28/2020 01:00:00 PM EDT completed e CW1 ([facility]) 08/28/2020 01:00:00 PM EDT completed e CW1 ([facility]) 07/30/2020 04:10:00 PM EDT completed e CW1 ([facility]) 07/30/2020 04:10:00 PM EDT completed e CW1 ([facility]) 07/30/2020 04:10:00 PM EDT completed e CW1 ([facility]) 07/30/2020 04:10:00 PM EDT completed e CW1 ([facility]) 07/30/2020 04:10:00 PM EDT completed e CW1 ([facility]) 07/30/2020 04:10:00 PM EDT completed e CW1 ([facility]) 07/30/2020 04:10:00 PM EDT completed e CW1 ([facility]) 07/30/2020 04:10:00 PM EDT completed e CW1 ([facility]) 07/30/2020 04:10:00 PM EDT completed e CW1 ([facility]) 07/30/2020 04:10:00 PM EDT completed e CW1 ([facility]) 07/30/2020 04:10:00 PM EDT completed e CW1 ([facility]) 07/30/2020 04:10:00 PM EDT completed e CW1 ([facility]) 07/30/2020 04:10:00 PM EDT completed e CW1 ([facility]) 07/30/2020 04:10:00 PM EDT completed e CW1 ([facility]) 07/30/2020 04:10:00 PM EDT completed e CW1 ([facility]) 07/30/2020 04:10:00 PM EDT completed e CW1 ([facility]) 07/30/2020 04:10:00 PM EDT completed e CW1 ([facility]) COVID-19 VACCINE Moderna 07/13/2020 12:00:00 AM EDT completed [place] Vaccine Series Complete: YESThis Data wa s Submitted to [facility] Via [employer]. 06/16/2020 09:53:00 AM EST completed e CW1 ([facility]) 06/16/2020 09:53:00 AM EST completed e CW1 ([facility]) 06/16/2020 09:53:00 AM EST completed e CW1 ([facility]) 06/16/2020 09:53:00 AM EST completed e CW1 ([facility]) 06/16/2020 09:53:00 AM EST completed e CW1 ([facility]) 06/16/2020 09:53:00 AM EST completed e CW1 ([facility]) 06/16/2020 09:53:00 AM EST completed e CW1 ([facility]) 06/16/2020 09:53:00 AM EST completed e CW1 ([facility]) 06/16/2020 09:53:00 AM EST completed e CW1 ([facility]) 06/16/2020 09:53:00 AM EST completed e CW1 ([facility]) 06/16/2020 09:53:00 AM EST completed e CW1 ([facility]) 06/16/2020 09:53:00 AM EST completed e CW1 ([facility]) 06/16/2020 09:53:00 AM EST completed e CW1 ([facility]) 06/16/2020 09:53:00 AM EST completed e CW1 ([facility]) 06/16/2020 09:53:00 AM EST completed e CW1 ([facility]) 06/16/2020 09:53:00 AM EST completed e CW1 ([facility]) 06/16/2020 09:53:00 AM EST completed e CW1 ([facility]) 06/16/2020 09:53:00 AM EST completed e CW1 ([facility]) 06/16/2020 09:53:00 AM EST completed e CW1 ([facility]) 06/16/2020 09:53:00 AM EST completed e CW1 ([facility]) 06/16/2020 09:53:00 AM EST completed e CW1 ([facility]) 06/16/2020 09:53:00 AM EST completed e CW1 ([facility]) 06/16/2020 09:53:00 AM EST completed e CW1 ([facility]) 05/14/2020 03:46:00 PM EST completed e CW1 ([facility]) 05/14/2020 03:46:00 PM EST completed e CW1 ([facility]) 05/14/2020 03:46:00 PM EST completed e CW1 ([facility]) 05/14/2020 03:46:00 PM EST completed e CW1 ([facility]) 05/14/2020 03:46:00 PM EST completed e CW1 ([facility]) 05/14/2020 03:46:00 PM EST completed e CW1 ([facility]) 05/14/2020 03:46:00 PM EST completed e CW1 ([facility]) 05/14/2020 03:46:00 PM EST completed e CW1 ([facility]) 05/14/2020 03:46:00 PM EST completed e CW1 ([facility]) 05/14/2020 03:46:00 PM EST completed e CW1 ([facility]) 05/14/2020 03:46:00 PM EST completed e CW1 ([facility]) 05/14/2020 03:46:00 PM EST completed e CW1 ([facility]) 05/14/2020 03:46:00 PM EST completed e CW1 ([facility]) 05/14/2020 03:46:00 PM EST completed e CW1 ([facility]) 05/14/2020 03:46:00 PM EST completed e CW1 ([facility]) 05/14/2020 03:46:00 PM EST completed e CW1 ([facility]) 05/14/2020 03:46:00 PM EST completed e CW1 ([facility]) 05/14/2020 03:46:00 PM EST completed e CW1 ([facility]) 05/14/2020 03:46:00 PM EST completed e CW1 ([facility]) 05/14/2020 03:46:00 PM EST completed e CW1 ([facility]) 05/14/2020 03:46:00 PM EST completed e CW1 ([facility]) 05/14/2020 03:46:00 PM EST completed e CW1 ([facility]) 05/14/2020 03:46:00 PM EST completed e CW1 ([facility]) 05/14/2020 03:46:00 PM EST completed e CW1 ([facility]) 04/07/2020 05:53:00 PM EST completed e CW1 ([facility]) 04/07/2020 05:53:00 PM EST completed e CW1 ([facility]) 04/07/2020 05:53:00 PM EST completed e CW1 ([facility]) 04/07/2020 05:53:00 PM EST completed e CW1 ([facility]) 04/07/2020 05:53:00 PM EST completed e CW1 ([facility]) 04/07/2020 05:53:00 PM EST completed e CW1 ([facility]) 04/07/2020 05:53:00 PM EST completed e CW1 ([facility]) 04/07/2020 05:53:00 PM EST completed e CW1 ([facility]) 04/07/2020 05:53:00 PM EST completed e CW1 ([facility]) 04/07/2020 05:53:00 PM EST completed e CW1 ([facility]) 04/07/2020 05:53:00 PM EST completed e CW1 ([facility]) 04/07/2020 05:53:00 PM EST completed e CW1 ([facility]) 04/07/2020 05:53:00 PM EST completed e CW1 ([facility]) 04/07/2020 05:53:00 PM EST completed e CW1 ([facility]) 04/07/2020 05:53:00 PM EST completed e CW1 ([facility]) 04/07/2020 05:53:00 PM EST completed e CW1 ([facility]) 04/07/2020 05:53:00 PM EST completed e CW1 ([facility]) 04/07/2020 05:53:00 PM EST completed e CW1 ([facility]) 04/07/2020 05:53:00 PM EST completed e CW1 ([facility]) 04/07/2020 05:53:00 PM EST completed e CW1 ([facility]) 04/07/2020 05:53:00 PM EST completed e CW1 ([facility]) 04/07/2020 05:53:00 PM EST completed e CW1 ([facility]) 04/07/2020 05:53:00 PM EST completed e CW1 ([facility]) 04/07/2020 05:53:00 PM EST completed e CW1 ([facility]) 04/07/2020 05:53:00 PM EST completed e CW1 ([facility]) 04/07/2020 05:53:00 PM EST completed e CW1 ([facility]) 04/07/2020 05:53:00 PM EST completed e CW1 ([facility]) 04/07/2020 05:53:00 PM EST completed e CW1 ([facility]) 03/06/2020 04:37:00 PM EST completed e CW1 ([facility]) 03/06/2020 04:37:00 PM EST completed e CW1 ([facility]) 03/06/2020 04:37:00 PM EST completed e CW1 ([facility]) 03/06/2020 04:37:00 PM EST completed e CW1 ([facility]) 03/06/2020 04:37:00 PM EST completed e CW1 ([facility]) 03/06/2020 04:37:00 PM EST completed e CW1 ([facility]) 03/06/2020 04:37:00 PM EST completed e CW1 ([facility]) 03/06/2020 04:37:00 PM EST completed e CW1 ([facility]) 03/06/2020 04:37:00 PM EST completed e CW1 ([facility]) 03/06/2020 04:37:00 PM EST completed e CW1 ([facility]) 03/06/2020 04:37:00 PM EST completed e CW1 ([facility]) 03/06/2020 04:37:00 PM EST completed e CW1 ([facility]) 03/06/2020 04:37:00 PM EST completed e CW1 ([facility]) 03/06/2020 04:37:00 PM EST completed e CW1 ([facility]) 03/06/2020 04:37:00 PM EST completed e CW1 ([facility]) 03/06/2020 04:37:00 PM EST completed e CW1 ([facility]) 03/06/2020 04:37:00 PM EST completed e CW1 ([facility]) 03/06/2020 04:37:00 PM EST completed e CW1 ([facility]) 03/06/2020 04:37:00 PM EST completed e CW1 ([facility]) 03/06/2020 04:37:00 PM EST completed e CW1 ([facility]) 03/06/2020 04:37:00 PM EST completed e CW1 ([facility]) 03/06/2020 04:37:00 PM EST completed e CW1 ([facility]) 03/06/2020 04:37:00 PM EST completed e CW1 ([facility]) 03/06/2020 04:37:00 PM EST completed e CW1 ([facility]) 03/06/2020 04:37:00 PM EST completed e CW1 ([facility]) 03/06/2020 04:37:00 PM EST completed e CW1 ([facility]) 03/06/2020 04:37:00 PM EST completed e CW1 ([facility]) 03/06/2020 04:37:00 PM EST completed e CW1 ([facility]) 03/06/2020 04:37:00 PM EST completed e CW1 ([facility]) 02/06/2020 12:53:00 PM EDT completed e CW1 ([facility]) 02/06/2020 12:53:00 PM EDT completed e CW1 ([facility]) 02/06/2020 12:53:00 PM EDT completed e CW1 ([facility]) 02/06/2020 12:53:00 PM EDT completed e CW1 ([facility]) 02/06/2020 12:53:00 PM EDT completed e CW1 ([facility]) 02/06/2020 12:53:00 PM EDT completed e CW1 ([facility]) 02/06/2020 12:53:00 PM EDT completed e CW1 ([facility]) 02/06/2020 12:53:00 PM EDT completed e CW1 ([facility]) 02/06/2020 12:53:00 PM EDT completed e CW1 ([facility]) 02/06/2020 12:53:00 PM EDT completed e CW1 ([facility]) 02/06/2020 12:53:00 PM EDT completed e CW1 ([facility]) 02/06/2020 12:53:00 PM EDT completed e CW1 ([facility]) 02/06/2020 12:53:00 PM EDT completed e CW1 ([facility]) 02/06/2020 12:53:00 PM EDT completed e CW1 ([facility]) 02/06/2020 12:53:00 PM EDT completed e CW1 ([facility]) 02/06/2020 12:53:00 PM EDT completed e CW1 ([facility]) 02/06/2020 12:53:00 PM EDT completed e CW1 ([facility]) 02/06/2020 12:53:00 PM EDT completed e CW1 ([facility]) 02/06/2020 12:53:00 PM EDT completed e CW1 ([facility]) 02/06/2020 12:53:00 PM EDT completed e CW1 ([facility]) 02/06/2020 12:53:00 PM EDT completed e CW1 ([facility]) 02/06/2020 12:53:00 PM EDT completed e CW1 ([facility]) 02/06/2020 12:53:00 PM EDT completed e CW1 ([facility]) 02/06/2020 12:53:00 PM EDT completed e CW1 ([facility]) 02/06/2020 12:53:00 PM EDT completed e CW1 ([facility]) 02/06/2020 12:53:00 PM EDT completed e CW1 ([facility]) 02/06/2020 12:53:00 PM EDT completed e CW1 ([facility]) 02/06/2020 12:53:00 PM EDT completed e CW1 ([facility]) 02/06/2020 12:53:00 PM EDT completed e CW1 ([facility]) 02/06/2020 12:53:00 PM EDT completed e CW1 ([facility]) 02/06/2020 12:53:00 PM EDT completed e CW1 ([facility]) 02/06/2020 12:53:00 PM EDT completed e CW1 ([facility]) 02/06/2020 12:53:00 PM EDT completed e CW1 ([facility]) 02/06/2020 12:53:00 PM EDT completed e CW1 ([facility]) 02/06/2020 12:53:00 PM EDT completed e CW1 ([facility]) influenza, recombinant, quadrIvalent,injectable, prese rvative free 01/29/2020 10:56:00 AM EDT completed eCW1 ([facility]) influenza, recombinant, quadrIvalent,injectable, prese rvative free 01/29/2020 10:56:00 AM EDT completed eCW1 ([facility]) influenza, recombinant, quadrIvalent,injectable, prese rvative free 01/29/2020 10:56:00 AM EDT completed eCW1 ([facility]) influenza, recombinant, quadrIvalent,injectable, prese rvative free 01/29/2020 10:56:00 AM EDT completed eCW1 ([facility]) influenza, recombinant, quadrIvalent,injectable, prese rvative free 01/29/2020 10:56:00 AM EDT completed eCW1 ([facility]) influenza, recombinant, quadrIvalent,injectable, prese rvative free 01/29/2020 10:56:00 AM EDT completed eCW1 ([facility]) influenza, recombinant, quadrIvalent,injectable, prese rvative free 01/29/2020 10:56:00 AM EDT completed eCW1 ([facility]) influenza, recombinant, quadrIvalent,injectable, prese rvative free 01/29/2020 10:56:00 AM EDT completed eCW1 ([facility]) influenza, recombinant, quadrIvalent,injectable, prese rvative free 01/29/2020 10:56:00 AM EDT completed eCW1 ([facility]) influenza, recombinant, quadrIvalent,injectable, prese rvative free 01/29/2020 10:56:00 AM EDT completed eCW1 ([facility]) influenza, recombinant, quadrIvalent,injectable, prese rvative free 01/29/2020 10:56:00 AM EDT completed eCW1 ([facility]) influenza, recombinant, quadrIvalent,injectable, prese rvative free 01/29/2020 10:56:00 AM EDT completed eCW1 ([facility]) influenza, recombinant, quadrIvalent,injectable, prese rvative free 01/29/2020 10:56:00 AM EDT completed eCW1 ([facility]) influenza, recombinant, quadrIvalent,injectable, prese rvative free 01/29/2020 10:56:00 AM EDT completed eCW1 ([facility]) influenza, recombinant, quadrIvalent,injectable, prese rvative free 01/29/2020 10:56:00 AM EDT completed eCW1 ([facility]) influenza, recombinant, quadrIvalent,injectable, prese rvative free 01/29/2020 10:56:00 AM EDT completed eCW1 ([facility]) influenza, recombinant, quadrIvalent,injectable, prese rvative free 01/29/2020 10:56:00 AM EDT completed eCW1 ([facility]) influenza, recombinant, quadrIvalent,injectable, prese rvative free 01/29/2020 10:56:00 AM EDT completed eCW1 ([facility]) influenza, recombinant, quadrIvalent,injectable, prese rvative free 01/29/2020 10:56:00 AM EDT completed eCW1 ([facility]) influenza, recombinant, quadrIvalent,injectable, prese rvative free 01/29/2020 10:56:00 AM EDT completed eCW1 ([facility]) influenza, recombinant, quadrIvalent,injectable, prese rvative free 01/29/2020 10:56:00 AM EDT completed eCW1 ([facility]) influenza, recombinant, quadrIvalent,injectable, prese rvative free 01/29/2020 10:56:00 AM EDT completed eCW1 ([facility]) influenza, recombinant, quadrIvalent,injectable, prese rvative free 01/29/2020 10:56:00 AM EDT completed eCW1 ([facility]) influenza, recombinant, quadrIvalent,injectable, prese rvative free 01/29/2020 10:56:00 AM EDT completed eCW1 ([facility]) influenza, recombinant, quadrIvalent,injectable, prese rvative free 01/29/2020 10:56:00 AM EDT completed eCW1 ([facility]) influenza, recombinant, quadrIvalent,injectable, prese rvative free 01/29/2020 10:56:00 AM EDT completed eCW1 ([facility]) influenza, recombinant, quadrIvalent,injectable, prese rvative free 01/29/2020 10:56:00 AM EDT completed eCW1 ([facility]) influenza, recombinant, quadrIvalent,injectable, prese rvative free 01/29/2020 10:56:00 AM EDT completed eCW1 ([facility]) influenza, recombinant, quadrIvalent,injectable, prese rvative free 01/29/2020 10:56:00 AM EDT completed eCW1 ([facility]) influenza, recombinant, quadrIvalent,injectable, prese rvative free 01/29/2020 10:56:00 AM EDT completed eCW1 ([facility]) influenza, recombinant, quadrIvalent,injectable, prese rvative free 01/29/2020 10:56:00 AM EDT completed eCW1 ([facility]) influenza, recombinant, quadrIvalent,injectable, prese rvative free 01/29/2020 10:56:00 AM EDT completed eCW1 ([facility]) influenza, recombinant, quadrIvalent,injectable, prese rvative free 01/29/2020 10:56:00 AM EDT completed eCW1 ([facility]) influenza, recombinant, quadrIvalent,injectable, prese rvative free 01/29/2020 10:56:00 AM EDT completed eCW1 ([facility]) influenza, recombinant, quadrIvalent,injectable, prese rvative free 01/29/2020 10:56:00 AM EDT completed eCW1 ([facility]) Medications Medication Brand Name Start Date Product Form Dose Route Admi nistrative Instructions Pharmacy Instructions Status Indications Reaction Description Data Source(s) Acetaminophen 325 MG / Oxycodone Hydroch loride 5 MG Oral Tablet oxyCODONE- Acetaminophen 5-325 MG oxyCODONE-Acetaminophen 5-325 MG 12/18/2020 12:00:00 A M EDT 1.0 {tablet_as_needed} active o xyCODONE-Acetaminophen 5-325 MG eCW1 ([facility]) Acetaminophen 325 MG / Oxycodone Hydroch loride 5 MG Oral Tablet oxyCODONE- Acetaminophen 5-325 MG oxyCODONE-Acetaminophen 5-325 MG 12/18/2020 12:00:00 A M EDT 1.0 {tablet_as_needed} active o xyCODONE-Acetaminophen 5-325 MG eCW1 ([facility]) Acetaminophen 325 MG / Oxycodone Hydroch loride 5 MG Oral Tablet oxyCODONE- Acetaminophen 5-325 MG oxyCODONE-Acetaminophen 5-325 MG 12/18/2020 12:00:00 A M EDT 1.0 {tablet_as_needed} active o xyCODONE-Acetaminophen 5-325 MG eCW1 ([facility]) 10 mg 10/10/2020 12:00:00 AM EDT tablet 180 TAKE ONE TABLET BY MOUTH TWICE A DAY TAKE ONE TABLET BY MOUTH TWICE A DAY SOLD: 10/10/2020 [facility] 10 mg 10/10/2020 12:00:00 AM EDT tablet 180 TAKE ONE TABLET BY MOUTH TWICE A DAY TAKE ONE TABLET BY MOUTH TWICE A DAY SOLD: 01/12/2021 [facility] valsartan 40 MG Oral Tablet Valsartan 40 MG Valsartan 40 MG 08/13/2020 12:00:00 AM EDT 1.0 {tablet} active Valsartan 4 0 MG eCW1 ([facility]) valsartan 40 MG Oral Tablet Valsartan 40 MG Valsartan 40 MG 08/13/2020 12:00:00 AM EDT 1.0 {tablet} active Valsartan 4 0 MG eCW1 ([facility]) valsartan 40 MG Oral Tablet Valsartan 40 MG Valsartan 40 MG 08/13/2020 12:00:00 AM EDT 1.0 {tablet} active Valsartan 4 0 MG eCW1 ([facility]) valsartan 40 MG Oral Tablet Valsartan 40 MG Valsartan 40 MG 08/13/2020 12:00:00 AM EDT 1.0 {tablet} active Valsartan 4 0 MG eCW1 ([facility]) valsartan 40 MG Oral Tablet Valsartan 40 MG Valsartan 40 MG 08/13/2020 12:00:00 AM EDT 1.0 {tablet} active Valsartan 4 0 MG eCW1 ([facility]) valsartan 40 MG Oral Tablet Valsartan 40 MG Valsartan 40 MG 08/13/2020 12:00:00 AM EDT 1.0 {tablet} active Valsartan 4 0 MG eCW1 ([facility]) valsartan 40 MG Oral Tablet Valsartan 40 MG Valsartan 40 MG 08/13/2020 12:00:00 AM EDT 1.0 {tablet} active Valsartan 4 0 MG eCW1 ([facility]) valsartan 40 MG Oral Tablet Valsartan 40 MG Valsartan 40 MG 08/13/2020 12:00:00 AM EDT 1.0 {tablet} active Valsartan 4 0 MG eCW1 ([facility]) valsartan 40 MG Oral Tablet Valsartan 40 MG Valsartan 40 MG 08/13/2020 12:00:00 AM EDT 1.0 {tablet} active Valsartan 4 0 MG eCW1 ([facility]) valsartan 40 MG Oral Tablet Valsartan 40 MG Valsartan 40 MG 08/13/2020 12:00:00 AM EDT 1.0 {tablet} active Valsartan 4 0 MG eCW1 ([facility]) valsartan 40 MG Oral Tablet Valsartan 40 MG Valsartan 40 MG 08/13/2020 12:00:00 AM EDT 1.0 {tablet} active Valsartan 4 0 MG eCW1 ([facility]) valsartan 40 MG Oral Tablet Valsartan 40 MG Valsartan 40 MG 08/13/2020 12:00:00 AM EDT 1.0 {tablet} active Valsartan 4 0 MG eCW1 ([facility]) valsartan 40 MG Oral Tablet Valsartan 40 MG Valsartan 40 MG 08/13/2020 12:00:00 AM EDT 1.0 {tablet} active Valsartan 4 0 MG eCW1 ([facility]) valsartan 40 MG Oral Tablet Valsartan 40 MG Valsartan 40 MG 08/13/2020 12:00:00 AM EDT 1.0 {tablet} active Valsartan 4 0 MG eCW1 ([facility]) valsartan 40 MG Oral Tablet Valsartan 40 MG Valsartan 40 MG 08/13/2020 12:00:00 AM EDT 1.0 {tablet} active Valsartan 4 0 MG eCW1 ([facility]) Acetaminophen 325 MG / Oxycodone Hydroch loride 5 MG Oral Tablet Oxycodone- Acetaminophen 5-325 MG Oxycodone-Acetaminophen 5-325 MG 07/07/2020 12:00:00 A M EDT 1.0 {tablet_as_needed} active O xycodone-Acetaminophen 5-325 MG eCW1 ([facility]) Acetaminophen 325 MG / Oxycodone Hydroch loride 5 MG Oral Tablet Oxycodone- Acetaminophen 5-325 MG Oxycodone-Acetaminophen 5-325 MG 07/07/2020 12:00:00 A M EDT 1.0 {tablet_as_needed} active O xycodone-Acetaminophen 5-325 MG eCW1 ([facility]) Acetaminophen 325 MG / Oxycodone Hydroch loride 5 MG Oral Tablet Oxycodone- Acetaminophen 5-325 MG Oxycodone-Acetaminophen 5-325 MG 07/07/2020 12:00:00 A M EDT 1.0 {tablet_as_needed} active O xycodone-Acetaminophen 5-325 MG eCW1 ([facility]) Acetaminophen 325 MG / Oxycodone Hydroch loride 5 MG Oral Tablet oxyCODONE- Acetaminophen 5-325 MG oxyCODONE-Acetaminophen 5-325 MG 07/07/2020 12:00:00 A M EDT 1.0 {tablet_as_needed} active o xyCODONE-Acetaminophen 5-325 MG eCW1 ([facility]) Acetaminophen 325 MG / Oxycodone Hydroch loride 5 MG Oral Tablet Oxycodone- Acetaminophen 5-325 MG Oxycodone-Acetaminophen 5-325 MG 07/07/2020 12:00:00 A M EDT 1.0 {tablet_as_needed} active O xycodone-Acetaminophen 5-325 MG eCW1 ([facility]) Acetaminophen 325 MG / Oxycodone Hydroch loride 5 MG Oral Tablet oxyCODONE- Acetaminophen 5-325 MG oxyCODONE-Acetaminophen 5-325 MG 07/07/2020 12:00:00 A M EDT 1.0 {tablet_as_needed} active o xyCODONE-Acetaminophen 5-325 MG eCW1 ([facility]) Acetaminophen 325 MG / Oxycodone Hydroch loride 5 MG Oral Tablet Oxycodone- Acetaminophen 5-325 MG Oxycodone-Acetaminophen 5-325 MG 07/07/2020 12:00:00 A M EDT 1.0 {tablet_as_needed} active O xycodone-Acetaminophen 5-325 MG eCW1 ([facility]) Acetaminophen 325 MG / Oxycodone Hydroch loride 5 MG Oral Tablet oxyCODONE- Acetaminophen 5-325 MG oxyCODONE-Acetaminophen 5-325 MG 07/07/2020 12:00:00 A M EDT 1.0 {tablet_as_needed} active o xyCODONE-Acetaminophen 5-325 MG eCW1 ([facility]) Acetaminophen 325 MG / Oxycodone Hydroch loride 5 MG Oral Tablet Oxycodone- Acetaminophen 5-325 MG Oxycodone-Acetaminophen 5-325 MG 07/07/2020 12:00:00 A M EDT 1.0 {tablet_as_needed} active O xycodone-Acetaminophen 5-325 MG eCW1 ([facility]) Acetaminophen 325 MG / Oxycodone Hydroch loride 5 MG Oral Tablet oxyCODONE- Acetaminophen 5-325 MG oxyCODONE-Acetaminophen 5-325 MG 07/07/2020 12:00:00 A M EDT 1.0 {tablet_as_needed} active o xyCODONE-Acetaminophen 5-325 MG eCW1 ([facility]) Acetaminophen 325 MG / Oxycodone Hydroch loride 5 MG Oral Tablet Oxycodone- Acetaminophen 5-325 MG Oxycodone-Acetaminophen 5-325 MG 07/07/2020 12:00:00 A M EDT 1.0 {tablet_as_needed} active O xycodone-Acetaminophen 5-325 MG eCW1 ([facility]) Acetaminophen 325 MG / Oxycodone Hydroch loride 5 MG Oral Tablet Oxycodone- Acetaminophen 5-325 MG Oxycodone-Acetaminophen 5-325 MG 07/07/2020 12:00:00 A M EDT 1.0 {tablet_as_needed} active O xycodone-Acetaminophen 5-325 MG eCW1 ([facility]) Acetaminophen 325 MG / Oxycodone Hydroch loride 5 MG Oral Tablet Oxycodone- Acetaminophen 5-325 MG Oxycodone-Acetaminophen 5-325 MG 07/07/2020 12:00:00 A M EDT 1.0 {tablet_as_needed} active O xycodone-Acetaminophen 5-325 MG eCW1 ([facility]) Acetaminophen 325 MG / Oxycodone Hydroch loride 5 MG Oral Tablet oxyCODONE- Acetaminophen 5-325 MG oxyCODONE-Acetaminophen 5-325 MG 07/07/2020 12:00:00 A M EDT 1.0 {tablet_as_needed} active o xyCODONE-Acetaminophen 5-325 MG eCW1 ([facility]) Acetaminophen 325 MG / Oxycodone Hydroch loride 5 MG Oral Tablet Oxycodone- Acetaminophen 5-325 MG Oxycodone-Acetaminophen 5-325 MG 07/07/2020 12:00:00 A M EDT 1.0 {tablet_as_needed} active O xycodone-Acetaminophen 5-325 MG eCW1 ([facility]) Acetaminophen 325 MG / Oxycodone Hydroch loride 5 MG Oral Tablet oxyCODONE- Acetaminophen 5-325 MG oxyCODONE-Acetaminophen 5-325 MG 07/07/2020 12:00:00 A M EDT 1.0 {tablet_as_needed} active o xyCODONE-Acetaminophen 5-325 MG eCW1 ([facility]) Acetaminophen 325 MG / Oxycodone Hydroch loride 5 MG Oral Tablet oxyCODONE- Acetaminophen 5-325 MG oxyCODONE-Acetaminophen 5-325 MG 07/07/2020 12:00:00 A M EDT 1.0 {tablet_as_needed} active o xyCODONE-Acetaminophen 5-325 MG eCW1 ([facility]) Acetaminophen 325 MG / Oxycodone Hydroch loride 5 MG Oral Tablet Oxycodone- Acetaminophen 5-325 MG Oxycodone-Acetaminophen 5-325 MG 07/03/2020 12:00:00 A M EST 1.0 {tablet_as_needed} active O xycodone-Acetaminophen 5-325 MG eCW1 ([facility]) Acetaminophen 325 MG / Oxycodone Hydroch loride 5 MG Oral Tablet Oxycodone- Acetaminophen 5-325 MG Oxycodone-Acetaminophen 5-325 MG 04/30/2020 12:00:00 A M EST 1.0 {tablet_as_needed} active O xycodone-Acetaminophen 5-325 MG eCW1 ([facility]) Acetaminophen 325 MG / Oxycodone Hydroch loride 5 MG Oral Tablet Oxycodone- Acetaminophen 5-325 MG Oxycodone-Acetaminophen 5-325 MG 04/30/2020 12:00:00 A M EST 1.0 {tablet_as_needed} active O xycodone-Acetaminophen 5-325 MG eCW1 ([facility]) Acetaminophen 325 MG / Oxycodone Hydroch loride 5 MG Oral Tablet Oxycodone- Acetaminophen 5-325 MG Oxycodone-Acetaminophen 5-325 MG 04/30/2020 12:00:00 A M EST 1.0 {tablet_as_needed} active O xycodone-Acetaminophen 5-325 MG eCW1 ([facility]) Acetaminophen 325 MG / Oxycodone Hydroch loride 5 MG Oral Tablet Oxycodone- Acetaminophen 5-325 MG Oxycodone-Acetaminophen 5-325 MG 04/30/2020 12:00:00 A M EST 1.0 {tablet_as_needed} active O xycodone-Acetaminophen 5-325 MG eCW1 ([facility]) 2 ML Sodium Hyaluronate 10 MG/ML Prefilled Syringe [Euflexxa ] Euflexxa 04/29/2020 12:00:00 AM EST active MEDENT ([facility]) Atropine Sulfate 0.025 MG / Diphenoxylate Hydrochlorid e 2.5 MG Oral Tablet Diphenoxylate-Atropine 03/16/2020 12:00:00 AM EST ORAL active [facility] ([facility]) Acetaminophen 325 MG / Oxycodone Hydroch loride 5 MG Oral Tablet Oxycodone- Acetaminophen 5-325 MG Oxycodone-Acetaminophen 5-325 MG 02/14/2020 12:00:00 A M EDT 1.0 {tablet_as_needed} active O xycodone-Acetaminophen 5-325 MG eCW1 ([facility]) Acetaminophen 325 MG / Oxycodone Hydroch loride 5 MG Oral Tablet Oxycodone- Acetaminophen 5-325 MG Oxycodone-Acetaminophen 5-325 MG 02/14/2020 12:00:00 A M EDT 1.0 {tablet_as_needed} active O xycodone-Acetaminophen 5-325 MG eCW1 ([facility]) Acetaminophen 325 MG / Oxycodone Hydroch loride 5 MG Oral Tablet Oxycodone- Acetaminophen 5-325 MG Oxycodone-Acetaminophen 5-325 MG 02/14/2020 12:00:00 A M EDT 1.0 {tablet_as_needed} active O xycodone-Acetaminophen 5-325 MG eCW1 ([facility]) Acetaminophen 325 MG / Oxycodone Hydroch loride 5 MG Oral Tablet Oxycodone- Acetaminophen 5-325 MG Oxycodone-Acetaminophen 5-325 MG 02/14/2020 12:00:00 A M EDT 1.0 {tablet_as_needed} active O xycodone-Acetaminophen 5-325 MG eCW1 ([facility]) Acetaminophen 325 MG / Oxycodone Hydroch loride 5 MG Oral Tablet Oxycodone- Acetaminophen 5-325 MG Oxycodone-Acetaminophen 5-325 MG 02/14/2020 12:00:00 A M EDT 1.0 {tablet_as_needed} active O xycodone-Acetaminophen 5-325 MG [facility] [place]) Acetaminophen 325 MG / Oxycodone Hydroch loride 5 MG Oral Tablet Oxycodone- Acetaminophen 5-325 MG Oxycodone-Acetaminophen 5-325 MG 02/14/2020 12:00:00 A M EDT 1.0 {tablet_as_needed} active O xycodone-Acetaminophen 5-325 MG eCW1 ([facility]) Acetaminophen 325 MG / Oxycodone Hydroch loride 5 MG Oral Tablet Oxycodone- Acetaminophen 5-325 MG Oxycodone-Acetaminophen 5-325 MG 02/14/2020 12:00:00 A M EDT 1.0 {tablet_as_needed} active O xycodone-Acetaminophen 5-325 MG eCW1 ([facility]) Acetaminophen 325 MG / Oxycodone Hydroch loride 5 MG Oral Tablet Oxycodone- Acetaminophen 5-325 MG Oxycodone-Acetaminophen 5-325 MG 02/14/2020 12:00:00 A M EDT 1.0 {tablet_as_needed} active O xycodone-Acetaminophen 5-325 MG eCW1 ([facility]) Acetaminophen 325 MG / Oxycodone Hydroch loride 5 MG Oral Tablet Oxycodone- Acetaminophen 5-325 MG Oxycodone-Acetaminophen 5-325 MG 02/14/2020 12:00:00 A M EDT 1.0 {tablet_as_needed} active O xycodone-Acetaminophen 5-325 MG eCW1 ([facility]) Acetaminophen 325 MG / Oxycodone Hydroch loride 5 MG Oral Tablet Oxycodone- Acetaminophen 5-325 MG Oxycodone-Acetaminophen 5-325 MG 02/14/2020 12:00:00 A M EDT 1.0 {tablet_as_needed} active O xycodone-Acetaminophen 5-325 MG eCW1 ([facility]) Lancets - Lancets - 02/06/2020 12:00:00 AM EDT [facility] [place] Lancets - eCW1 ([facility]) Lancets - Lancets - 02/06/2020 12:00:00 AM EDT [facility] [place] Lancets - eCW1 ([facility]) Glucometer UNK 02/06/2020 12:00:00 AM EDT active Glucometer eCW1 ([facility]) Glucometer UNK 02/06/2020 12:00:00 AM EDT active Glucometer eCW1 ([facility]) Glucometer UNK 02/06/2020 12:00:00 AM EDT active Glucometer eCW1 ([facility]) Lancets - Lancets - 02/06/2020 12:00:00 AM EDT [facility] [place] Lancets - eCW1 ([facility]) Glucometer UNK 02/06/2020 12:00:00 AM EDT active Glucometer eCW1 ([facility]) Lancets - Lancets - 02/06/2020 12:00:00 AM EDT [facility] [place] Lancets - eCW1 ([facility]) Lancets - Lancets - 02/06/2020 12:00:00 AM EDT [facility] [place] Lancets - eCW1 ([facility]) Blood Glucose Test - Blood Glucose Test - 02/06/2020 12:00:00 AM EDT active Blood Glucose Test - eCW1 ([facility]) Lancets - Lancets - 02/06/2020 12:00:00 AM EDT [place] Lancets - eCW1 ([facility]) Lancets - Lancets - 02/06/2020 12:00:00 AM EDT [place] Lancets - eCW1 ([facility]) Blood Glucose Test - Blood Glucose Test - 02/06/2020 12:00:00 AM EDT active Blood Glucose Test - eCW1 ([facility]) Glucometer UNK 02/06/2020 12:00:00 AM EDT active Glucometer eCW1 ([facility]) Glucometer UNK 02/06/2020 12:00:00 AM EDT active Glucometer eCW1 ([facility]) Blood Glucose Test - Blood Glucose Test - 02/06/2020 12:00:00 AM EDT active Blood Glucose Test - eCW1 ([facility]) Glucometer UNK 02/06/2020 12:00:00 AM EDT active Glucometer eCW1 ([facility]) Glucometer UNK 02/06/2020 12:00:00 AM EDT active Glucometer eCW1 ([facility]) Glucometer UNK 02/06/2020 12:00:00 AM EDT active Glucometer eCW1 ([facility]) Glucometer UNK 02/06/2020 12:00:00 AM EDT active Glucometer eCW1 ([facility]) Lancets - Lancets - 02/06/2020 12:00:00 AM EDT [facility] [place] Lancets - eCW1 ([facility]) Lancets - Lancets - 02/06/2020 12:00:00 AM EDT [facility] [place] Lancets - eCW1 ([facility]) Blood Glucose Test - Blood Glucose Test - 02/06/2020 12:00:00 AM EDT active Blood Glucose Test - eCW1 ([facility]) Lancets - Lancets - 02/06/2020 12:00:00 AM EDT [place] Lancets - eCW1 ([facility]) Blood Glucose Test - Blood Glucose Test - 02/06/2020 12:00:00 AM EDT active Blood Glucose Test - eCW1 ([facility]) Blood Glucose Test - Blood Glucose Test - 02/06/2020 12:00:00 AM EDT active Blood Glucose Test - eCW1 ([facility]) Glucometer UNK 02/06/2020 12:00:00 AM EDT active Glucometer eCW1 ([facility]) Lancets - Lancets - 02/06/2020 12:00:00 AM EDT [place] Lancets - eCW1 ([facility]) Lancets - Lancets - 02/06/2020 12:00:00 AM EDT [facility] [place] Lancets - eCW1 ([facility]) Lancets - Lancets - 02/06/2020 12:00:00 AM EDT [facility] [place] Lancets - eCW1 ([facility]) Glucometer UNK 02/06/2020 12:00:00 AM EDT active Glucometer eCW1 ([facility]) Blood Glucose Test - Blood Glucose Test - 02/06/2020 12:00:00 AM EDT active Blood Glucose Test - eCW1 ([facility]) Glucometer UNK 02/06/2020 12:00:00 AM EDT active Glucometer eCW1 ([facility]) Blood Glucose Test - Blood Glucose Test - 02/06/2020 12:00:00 AM EDT active Blood Glucose Test - eCW1 ([facility]) Lancets - Lancets - 02/06/2020 12:00:00 AM EDT [place] Lancets - eCW1 ([facility]) Lancets - Lancets - 02/06/2020 12:00:00 AM EDT [facility] [place] Lancets - eCW1 ([facility]) Blood Glucose Test - Blood Glucose Test - 02/06/2020 12:00:00 AM EDT active Blood Glucose Test - eCW1 ([facility]) Glucometer UNK 02/06/2020 12:00:00 AM EDT active Glucometer eCW1 ([facility]) Glucometer UNK 02/06/2020 12:00:00 AM EDT active Glucometer eCW1 ([facility]) Glucometer UNK 02/06/2020 12:00:00 AM EDT active Glucometer eCW1 ([facility]) Lancets - Lancets - 02/06/2020 12:00:00 AM EDT [facility] [place] Lancets - eCW1 ([facility]) Glucometer UNK 02/06/2020 12:00:00 AM EDT active Glucometer eCW1 ([facility]) Blood Glucose Test - Blood Glucose Test - 02/06/2020 12:00:00 AM EDT active Blood Glucose Test - eCW1 ([facility]) Lancets - Lancets - 02/06/2020 12:00:00 AM EDT [place] Lancets - eCW1 ([facility]) Blood Glucose Test - Blood Glucose Test - 02/06/2020 12:00:00 AM EDT active Blood Glucose Test - eCW1 ([facility]) Blood Glucose Test - Blood Glucose Test - 02/06/2020 12:00:00 AM EDT active Blood Glucose Test - eCW1 ([facility]) Glucometer UNK 02/06/2020 12:00:00 AM EDT active Glucometer eCW1 ([facility]) Blood Glucose Test - Blood Glucose Test - 02/06/2020 12:00:00 AM EDT active Blood Glucose Test - eCW1 ([facility]) Glucometer UNK 02/06/2020 12:00:00 AM EDT active Glucometer eCW1 ([facility]) Blood Glucose Test - Blood Glucose Test - 02/06/2020 12:00:00 AM EDT active Blood Glucose Test - eCW1 ([facility]) Blood Glucose Test - Blood Glucose Test - 02/06/2020 12:00:00 AM EDT active Blood Glucose Test - eCW1 ([facility]) Lancets - Lancets - 02/06/2020 12:00:00 AM EDT [facility] [place] Lancets - eCW1 ([facility]) Blood Glucose Test - Blood Glucose Test - 02/06/2020 12:00:00 AM EDT active Blood Glucose Test - eCW1 ([facility]) Blood Glucose Test - Blood Glucose Test - 02/06/2020 12:00:00 AM EDT active Blood Glucose Test - eCW1 ([facility]) Lancets - Lancets - 02/06/2020 12:00:00 AM EDT [place] Lancets - eCW1 ([facility]) Lancets - Lancets - 02/06/2020 12:00:00 AM EDT [facility] [place] Lancets - eCW1 ([facility]) Glucometer UNK 02/06/2020 12:00:00 AM EDT active Glucometer eCW1 ([facility]) Glucometer UNK 02/06/2020 12:00:00 AM EDT active Glucometer eCW1 ([facility]) Blood Glucose Test - Blood Glucose Test - 02/06/2020 12:00:00 AM EDT active Blood Glucose Test - eCW1 ([facility]) Glucometer UNK 02/06/2020 12:00:00 AM EDT active Glucometer eCW1 ([facility]) Blood Glucose Test - Blood Glucose Test - 02/06/2020 12:00:00 AM EDT active Blood Glucose Test - eCW1 ([facility]) Lancets - Lancets - 02/06/2020 12:00:00 AM EDT [facility] [place] Lancets - eCW1 ([facility]) Blood Glucose Test - Blood Glucose Test - 02/06/2020 12:00:00 AM EDT active Blood Glucose Test - eCW1 ([facility]) Glucometer UNK 02/06/2020 12:00:00 AM EDT active Glucometer eCW1 ([facility]) Lancets - Lancets - 02/06/2020 12:00:00 AM EDT [facility] [place] Lancets - eCW1 ([facility]) Blood Glucose Test - Blood Glucose Test - 02/06/2020 12:00:00 AM EDT active Blood Glucose Test - eCW1 ([facility]) Blood Glucose Test - Blood Glucose Test - 02/06/2020 12:00:00 AM EDT active Blood Glucose Test - eCW1 ([facility]) Glucometer UNK 02/06/2020 12:00:00 AM EDT active Glucometer eCW1 ([facility]) Glucometer UNK 02/06/2020 12:00:00 AM EDT active Glucometer eCW1 ([facility]) Lancets - Lancets - 02/06/2020 12:00:00 AM EDT [facility] [place] Lancets - eCW1 ([facility]) Blood Glucose Test - Blood Glucose Test - 02/06/2020 12:00:00 AM EDT active Blood Glucose Test - eCW1 ([facility]) Blood Glucose Test - Blood Glucose Test - 02/06/2020 12:00:00 AM EDT active Blood Glucose Test - eCW1 ([facility]) Blood Glucose Test - Blood Glucose Test - 02/06/2020 12:00:00 AM EDT active Blood Glucose Test - eCW1 ([facility]) Blood Glucose Test - Blood Glucose Test - 02/06/2020 12:00:00 AM EDT active Blood Glucose Test - eCW1 ([facility]) Glucometer UNK 02/06/2020 12:00:00 AM EDT active Glucometer eCW1 ([facility]) Glucometer UNK 02/06/2020 12:00:00 AM EDT active Glucometer eCW1 ([facility]) Lancets - Lancets - 02/06/2020 12:00:00 AM EDT [facility] [place] Lancets - eCW1 ([facility]) Lancets - Lancets - 02/06/2020 12:00:00 AM EDT act [place] Lancets - eCW1 ([facility]) Blood Glucose Test - Blood Glucose Test - 02/06/2020 12:00:00 AM EDT active Blood Glucose Test - eCW1 ([facility]) Lancets - Lancets - 02/06/2020 12:00:00 AM EDT act [place] Lancets - eCW1 ([facility]) Glucometer UNK 02/06/2020 12:00:00 AM EDT active Glucometer eCW1 ([facility]) Glucometer UNK 02/06/2020 12:00:00 AM EDT active Glucometer eCW1 ([facility]) Blood Glucose Test - Blood Glucose Test - 02/06/2020 12:00:00 AM EDT active Blood Glucose Test - eCW1 ([facility]) Blood Glucose Test - Blood Glucose Test - 02/06/2020 12:00:00 AM EDT active Blood Glucose Test - eCW1 ([facility]) Glucometer UNK 02/06/2020 12:00:00 AM EDT active Glucometer eCW1 ([facility]) Lancets - Lancets - 02/06/2020 12:00:00 AM EDT act [place] Lancets - eCW1 ([facility]) Blood Glucose Test - Blood Glucose Test - 02/06/2020 12:00:00 AM EDT active Blood Glucose Test - eCW1 ([facility]) Blood Glucose Test - Blood Glucose Test - 02/06/2020 12:00:00 AM EDT active Blood Glucose Test - eCW1 ([facility]) Blood Glucose Test - Blood Glucose Test - 02/06/2020 12:00:00 AM EDT active Blood Glucose Test - eCW1 ([facility]) Glucometer UNK 02/06/2020 12:00:00 AM EDT active Glucometer eCW1 ([facility]) Lancets - Lancets - 02/06/2020 12:00:00 AM EDT act [place] Lancets - eCW1 ([facility]) Lancets - Lancets - 02/06/2020 12:00:00 AM EDT act [place] Lancets - eCW1 ([facility]) Lancets - Lancets - 02/06/2020 12:00:00 AM EDT act [place] Lancets - eCW1 ([facility]) Glucometer UNK 02/06/2020 12:00:00 AM EDT active Glucometer eCW1 ([facility]) Lancets - Lancets - 02/06/2020 12:00:00 AM EDT act [place] Lancets - eCW1 ([facility]) Blood Glucose Test - Blood Glucose Test - 02/06/2020 12:00:00 AM EDT active Blood Glucose Test - eCW1 ([facility]) Lancets - Lancets - 02/06/2020 12:00:00 AM EDT act [place] Lancets - eCW1 ([facility]) Glucometer UNK 02/06/2020 12:00:00 AM EDT active Glucometer eCW1 ([facility]) Lancets - Lancets - 02/06/2020 12:00:00 AM EDT act [place] Lancets - eCW1 ([facility]) Lancets - Lancets - 02/06/2020 12:00:00 AM EDT act [place] Lancets - eCW1 ([facility]) Glucometer UNK 02/06/2020 12:00:00 AM EDT active Glucometer eCW1 ([facility]) Glucometer UNK 02/06/2020 12:00:00 AM EDT active Glucometer eCW1 ([facility]) Blood Glucose Test - Blood Glucose Test - 02/06/2020 12:00:00 AM EDT active Blood Glucose Test - eCW1 ([facility]) Blood Glucose Test - Blood Glucose Test - 02/06/2020 12:00:00 AM EDT active Blood Glucose Test - eCW1 ([facility]) Lancets - Lancets - 02/06/2020 12:00:00 AM EDT [facility] [place] Lancets - eCW1 ([facility]) Insurance Providers Payer name Policy type / Coverage type Policy ID Covered constitution party ID Covered constitution party's relationship to meier Policy Meier Plan Information BCBS [facility] 332/834 [id number] SP [id number] [facility] MEDICARE [id number] [place] [id number] [facility] MEDICARE [id number] [place] [id number] [facility] MEDICARE [id number] [place] [id number] [facility] Medicare Solutions F [id number] SELF [id number] [facility] Medicare F [id number] SELF [id number] [facility] MEDICARE [id number] MEDICARE COMPLETE [id number] SP [id number] MEDICARE COMPLETE [id number] SP [id number] MEDICARE COMPLETE [id number] SP [id number] MEDICARE COMPLETE [id number] SP [id number] MEDICARE COMPLETE [id number] SP [id number] MEDICARE COMPLETE [id number] SP [id number] MEDICARE COMPLETE [id number] SP [id number] MEDICARE COMPLETE [id number] SP [id number] MEDICARE COMPLETE [id number] SP [id number] MEDICARE COMPLETE [id number] SP [id number] [facility] MEDICARE COMPLETE G [id number] Self [id number] [facility] [id number] Self [id number] ANSI-Medicare Part B [id number] ANSI-Medicare Part B [id number] [facility]-Medicare Part B [id number] ANS-Medicare Part B [id number] [facility]-Medicare Part B [id number] ANS-Medicare Part B [id number] [facility]-Medicare Part B [id number] [facility]-Medicare Part B [id number] [facility] [id number] [place] Medicare Primary [id number] Self [id number] [employer] Medicare Commercial [id number] Self [id number] [employer] Medicare Commercial [id number] Self [id number] ANSI-Medicare Part B [id number] ANSI-Medicare Part B [id number] ANSI-Medicare Part B [id number] ANSI-Medicare Part B [id number] ANSI-Medicare Part B [id number] ANSI-Medicare Part B [id number] ANSI-Medicare Part B [id number] ANSI-Medicare Part B [id number] ANSI-Medicare Part B [id number] ANSI-Medicare Part B [id number] ANSI-Medicare Part B [id number] ANSI-Medicare Part B [id number] ANSI-Medicare Part B [id number] ANSI-Medicare Part B [id number] UHC MEDICARE PI PI ANSI-Medicare Part B [id number] ANSI-Medicare Part B [id number] ANSI-Medicare Part B [id number] ANSI-Medicare Part B [id number] ANSI-Medicare Part B [id number] ANSI-Medicare Part B [id number] ANSI-Medicare Part B [id number] ANSI-Medicare Part B [id number] Medicare [facility] Medicare Primary [id number] Self [id number] [facility] Medicare Commercial [id number] ...[id number] Self [id number] [facility] Medicare Commercial [id number] ..[id number] Self [id number] ANSI-Medicare Part B [id number] ANSI-Medicare Part B [id number] Medicare [facility] Medicare Primary [id number] ..[id number] Self [id number] [facility] Medicare Commercial [id number] ..[id number] Self [id number] [facility] Medicare Commercial [id number] ..[id number] Self [id number] ANSI-Medicare Part B [id number] [place] Medicare Primary [id number] ..[id number] Self [id number] [facility] Medicare Commercial [id number] ..[id number] Self [id number] [facility] Medicare Commercial [id number] 2...[id number] Self [id number] ANSI-Medicare Part B [id number] ANSI-Medicare Part B [id number] ANSI-Medicare Part B [id number] MEDICARE COMPLETE [id number] SP [id number] [place]IC[place] [place] [id number] S [id number] Medicare [place] Medicare Primary [id number] ..[id number] Self [id number] [facility] Medicare Commercial [id number] .[id number] Self [id number] [facility] Medicare Commercial [id number]..[id number] Self [id number] Medicare [place] Medicare Primary [id number] .[id number] Self [id number] [facility] Medicare Commercial [id number] Self [id number] [facility] Medicare Commercial [id number] Self [id number] Medicare [place] Medicare Primary [id number] Self [id number] [facility] Medicare Commercial [id number] Self [id number] [facility] Medicare Commercial [id number] Self [id number] [employer] MEDIC[employer] O/P [id number] 18 [id number] [employer] MEDIC[employer] O/P [id number] 18 [id number] Medicare [place] Medicare Primary [id number] Self [id number] [facility] Medicare Commercial [id number] Self [id number] [facility] Medicare Commercial [id number] Self [id number] [place] Primary [id number] 2.16840.1.200716.3.227.99.8646.583101.0 Self [id number] [facility] Medicare Commercial [id number] 2.16840.1.303672.3.227.99.8646.676854.0 Self [id number] [facility] Medicare Commercial [id number] 2.16840.1.552193.3.227.99.8646.799623.0 Self [id number] [place] Primary [id number] 2.840.1.465956.3.227.99.8646.106496.0 Self [id number] [facility] Medicare Commercial [id number] 2.840.1.890730.3.227.99.8646.334963.0 Self [id number] [facility] [id number] 2.840.1.691034.3.227.99.8646.829328.0 Self [id number] [place] Primary [id number] .0.1.541685.3.227.99.8646.394361.0 Self [id number] [facility] Medicare Commercial [id number] .0.1.102564.3.227.99.8646.338491.0 Self [id number] [facility] Medicare Commercial [id number] 2.0.1.800098.3.227.99.8646.738689.0 Self [id number] MEDICARE [id number] A [place] Primary [id number] .0.1.613815.3.227.99.8646.579700.0 Self [id number] [facility] Medicare Commercial [id number] .0.1.517452.3.227.99.8646.388010.0 Self [id number] [facility] Medicare Commercial [id number] 2.0.1.635431.3.227.99.8646.639882.0 Self [id number] [place] Primary [id number] 2.0.1.131570.3.227.99.8646.903177.0 Self [id number] [facility] Medicare Commercial [id number] 2.0.1.240497.3.227.99.8646.315718.0 Self [id number] [facility] Medicare Commercial [id number] 2.0.1.048929.3.227.99.8646.113542.0 Self [id number] [place] Medicare Primary [id number] 2.16.840.1.291679.3.227.99.8646.46775.0 Self [id number] [facility] Medicare Commercial [id number] 2.16.840.1.992813.3.227.99.8646.92402.0 Self [id number] [facility] [facility] Medicare Commercial [id number] Self [id number] [employer] ([facility]) Commercial [id number] Self [id number] [employer] ([facility]) Commercial [id number] Self [id number] [facility] C [id number] S [id number] MEDICARE COMPLETE [id number] SP [id number] MEDICARE COMPLETE [id number] SP [id number] [facility]icare [facility] Commercial [id number] Self [employer] ([facility]) Commercial [id number] Self [facility]/Medicare Commercial [id number] Self BS [facility] [id number] Self [place] Primary [id number] Self SELF PAY UNAVAILABLE SP UNAVAILA BLE MEDICARE [id number] SP [id number] A MEDICARE [id number] SP [id number] A MEDICARE [id number] SP [id number] A [employer] [place] 332/834 [id number] SP [id number] [facility] ([facility]) Commercial [id number] Self [id number] MEDICARE COMPLETE [id number] SP [id number] MEDICARE COMPLETE [id number] SP [id number] MEDICARE COMPLETE [id number] SP [id number] MEDICARE COMPLETE [id number] SP [id number] MEDICARE COMPLETE [id number] SP [id number] MEDICARE COMPLETE [id number] SP [id number] MEDICARE COMPLETE-[facility] O [id number] O [id number] MEDICARE [id number] SP [id number] MEDICARE COMPLETE [id number] SP [id number] [facility] PATIENT ASSISTANCE [id number] SP [id number] ANSI-Medicare Part B [id number] ANSI-Medicare Part B [id number] ANSI-Medicare Part B [id number] ANSI-Medicare Part B [id number] ANSI-Medicare Part B [id number] ANSI-Medicare Part B [id number] [place] Medicare Primary [id number] Self [id number] [employer] Medicare Commercial [id number] Self [id number] [employer] Medicare Commercial [id number] Self [id number] Problems, Conditions, and Diagnoses Code Display Name Description Problem Type Effective Dates Data Source(s) K50.818 Crohn's disease of both smal l and large intestine with other complication Crohn's disease of both small and large intestine with other complication Diagnosis 04/09/2020 03:18:04 PM [facility] K50.80 Crohn's disease of both small and large intestine without complications Crohn's disease of both small and large intestine without complications Diagnosis 04/09/2020 03:18:04 PM [facility] E44.0 Moderate protein-calorie malnutrition Mo derate protein-calorie malnutrition Diagnosis 04/09/2020 03:18:04 PM [facility] M17.12 [id number] Arthritis of left knee Problem 1 12:00:00 AM EDT eCW1 ([facility]) T80.219D [id number] Infection of periphe rally inserted central catheter (PICC), subsequent encounter Problem 02/10/2020 12:00:00 AM EDT eCW1 ([facility]) B96.1 [id number] Klebsiella pneumonia e [K. pneumoniae] as the cause of diseases classified elsewhere Problem 02/10/2020 12:00:00 AM EDT eCW1 ([facility]) R78.81 [id number] Bacteremia Problem 02/10/2020 12:00:00 AM EDT eCW1 ([facility]) E53.8 [id number] B12 deficiency Problem 02/06/2020 12:00:00 A M EDT eCW1 ([facility]) E16.2 [id number] Hypoglycemia Problem 02/06/2020 12:00:00 AM EDT eCW1 ([facility]) Surgeries/Procedures Procedure Description Date Indications Data Source(s) Injection, vitamin b-12 cyanocobalamin, up to 1000 mcg 02/04/2021 12:00:00 AM EDT eCW1 ([facility]) Injection, vitamin b-12 cyanocobalamin, up to 1000 mcg 01/05/2021 12:00:00 AM EDT eCW1 ([facility]) Injection, vitamin b-12 cyanocobalamin, up to 1000 mcg 11/03/2020 12:00:00 AM EDT eCW1 ([facility]) Injection, vitamin b-12 cyanocobalamin, up to 1000 mcg 10/02/2020 12:00:00 AM EDT eCW1 ([facility]) Injection, vitamin b-12 cyanocobalamin, up to 1000 mcg 08/28/2020 12:00:00 AM EDT eCW1 ([facility]) Injection, vitamin b-12 cyanocobalamin, up to 1000 mcg 07/30/2020 12:00:00 AM EDT eCW1 ([facility]) Injection, vitamin b-12 cyanocobalamin, up to 1000 mcg 06/16/2020 12:00:00 AM EST eCW1 ([facility]) ARTHROCENTESIS ASPIR&/INJECTION MAJOR JT/BURSA 021 12:00:00 AM EST MEDENT ([facility] ) ARTHROCENTESIS ASPIR&/INJECTION MAJOR JT/BURSA 021 12:00:00 AM EST MEDENT ([facility] ) ARTHROCENTESIS ASPIR&/INJECTION MAJOR JT/BURSA 021 12:00:00 AM EST MEDENT ([facility] ) Injection, vitamin b-12 cyanocobalamin, up to 1000 mcg 04/07/2020 12:00:00 AM EST eCW1 ([facility]) ARTHROCENTESIS ASPIR&/INJECTION MAJOR JT/BURSA 020 12:00:00 AM EST MEDENT ([facility] ) RADIOLOGIC EXAM KNEE COMPLETE 4/MORE VIEWS 03/25/2020 12:00:00 AM EST MEDENT ([facility] ) Injection, vitamin b-12 cyanocobalamin, up to 1000 mcg 03/06/2020 12:00:00 AM EST eCW1 ([facility]) Medication: Vitamin B-12 1000mcg/1mL SC (Cyanocobalamin) 02/06/2020 12:00:00 AM EDT eCW1 ([facility]) Results ID Date Data Source [id number] 08/17/2020 09:43:53 AM EDT [facility] Name Value Range Interpretation Code Description Data Clover rce(s) Supporting Document(s) Progress Note [facility] [id number] lbm [file] [id number]== ID Date Data Source ADM KNEE COMPLETE 08/13/2020 12:00:00 AM EDT W1 ([facility]) Name Value Range Interpretation Code Description Data Clover rce(s) Supporting Document(s) ADM KNEE COMPLETE eCW1 ([facility]) ID Date Data Source [id number] 04/14/2020 12:00:00 AM EST [facility] Patient Name: PARENT,ELIZA [id number] [facility] Date of : 1945RAYSHAWN [place] [address]- Date of Exam: 04/14/2020PH#: Fax: [phone] EXAM: MRI KNEE LEFT WITHOUT & WITH CONTRASTCLINICAL INFORMATION: 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 There is new cortical irregularity and evidence ofcortical compression involving the anterior and mid-portions of the medialfemoral condyle. This is seen without concomitant new edema, however. Themedial compartment appears completely devoid of articular cartilage andincreased fluid is now seen within the medial compartment. There is somedepression of the medial tibial plateau which has also developed since thelast exam. The lateral compartment is again asymmetrically narrowed,however, this has increased from the prior exam and the chondral surfaceshave developed increased thinning and irregularity. Advanced thinning andirregularity is also seen involving the patellofemoral joint which hasworsened from the prior exam. There is T1 and T2 prolongation seen in boththe anterior and posterior horns of the medial meniscus which hasincreased. There is no significant change in the appearance of the lateralmeniscus. The medial collateral ligament is again seen to be intact withT2 hypersignal seen deep to the medial collateral ligament, status quo.There is no significant in the appearance of the lateral collateralligament. The anterior and posterior cruciate ligaments are again seen samantha intact. The quadriceps and patellar tendons are again seen to beintact. There is a slight joint effusion. No Phelan's cyst has developed.IMPRESSION:1. Worsened advanced chronic change seen involving the knee andparticularly the medial compartment as described above and seen withconcomitant chronic compression of the medial femoral condyle and medialtibial plateau.2. Chronic edema deep to the medial collateral ligament, likely secondaryto chronic microtrauma and repeated sprain.3. Chronic meniscal changes as described above without evidence ofdefinite acute internal derangement. Advanced medial meniscal degenerationis, however, present with evidence of medial meniscocapsular separation.This has increased rather significantly compared to the prior exam.4. Other findings and chronic changes as described above.Accredited by the [employer] in MR.Harris Mason, SELWYN/Torres healy for referring ELIZA HUERTA to our office. Electronically Signed - HARRIS MASON DO 04/21/20 10:41 Name Value Range Interpretation Code Description Data Clover rce(s) Supporting Document(s) ID Date Data Source [id number] 04/06/2020 09:30:00 AM EST MEDENT ([facility]) Name Value Range Interpretation Code Description Data Clover rce(s) Supporting Document(s) Creatinine For GFR 1.12 mg/dL 0.55-1.30 MEDENT ([facility]) Glomerular Filtration Rate 50.8 MED ENT ([facility]) <content>Units are mL/min/1.73 m2</content>
<content></content>
<content>Chronic Kidney Disease Staging per NKF:</content>
<content></content>
<content>Stage I & II GFR >=60 Normal to Mildly Decreased</content>
<content>Stage III GFR 30-59 Moderately Decreased</content>
<content>Stage IV GFR 15-29 Severely Decreased</content>
<content>Stage V GFR <15 Very Little GFR Left</content>
<content>ESRD GFR <15 on OFFBEARER SEWER PIPE</content>
<content></content> ID Date Data Source [id number] 04/06/2020 09:30:00 AM EST MEDENT ([facility]) Name Value Range Interpretation Code Description Data Clover rce(s) Supporting Document(s) Urea nitrogen [Mass/volume] in Serum or Plasma 36 mg/dL 7-18 MEDENT ([facility]) Procedure Social History Code Duration Value Status Description Data Source(s ) Smoking 12/04/2020 12:00:00 AM EDT Never Smoker completed Never S moker eCW1 ([facility]) Smoking 12/04/2020 12:00:00 AM EDT Never Smoker completed Never S moker eCW1 ([facility]) Smoking 12/04/2020 12:00:00 AM EDT Never Smoker completed Never S moker eCW1 ([facility]) Smoking 12/04/2020 12:00:00 AM EDT Never Smoker completed Never S moker eCW1 ([facility]) Smoking 12/04/2020 12:00:00 AM EDT Never Smoker completed Never S moker eCW1 ([facility]) Smoking 08/13/2020 12:00:00 AM EDT Never Smoker completed Never S moker eCW1 ([facility]) Smoking 08/13/2020 12:00:00 AM EDT Never Smoker completed Never S moker eCW1 ([facility]) Smoking 08/13/2020 12:00:00 AM EDT Never Smoker completed Never S moker eCW1 ([facility]) Smoking 08/13/2020 12:00:00 AM EDT Never Smoker completed Never S moker eCW1 ([facility]) Smoking 08/13/2020 12:00:00 AM EDT Never Smoker completed Never S moker eCW1 ([facility]) Smoking 08/13/2020 12:00:00 AM EDT Never Smoker completed Never S moker eCW1 ([facility]) Smoking 08/13/2020 12:00:00 AM EDT Never Smoker completed Never S moker eCW1 ([facility]) Smoking 08/13/2020 12:00:00 AM EDT Never Smoker completed Never S moker eCW1 ([facility]) Smoking 08/13/2020 12:00:00 AM EDT Never Smoker completed Never S moker eCW1 ([facility]) Smoking 08/13/2020 12:00:00 AM EDT Never Smoker completed Never S moker eCW1 ([facility]) Smoking 05/14/2020 12:00:00 AM EST Never Smoker completed Never S moker eCW1 ([facility]) Smoking 05/14/2020 12:00:00 AM EST Never Smoker completed Never S moker eCW1 ([facility]) Smoking 05/14/2020 12:00:00 AM EST Never Smoker completed Never S moker eCW1 ([facility]) Smoking 05/14/2020 12:00:00 AM EST Never Smoker completed Never S moker eCW1 ([facility]) Smoking 05/14/2020 12:00:00 AM EST Never Smoker completed Never S moker eCW1 ([facility]) Smoking 05/14/2020 12:00:00 AM EST Never Smoker completed Never S moker eCW1 ([facility]) Smoking 05/14/2020 12:00:00 AM EST Never Smoker completed Never S moker eCW1 ([facility]) Smoking 05/14/2020 12:00:00 AM EST Never Smoker completed Never S moker eCW1 ([facility]) Smoking 05/14/2020 12:00:00 AM EST Never Smoker completed Never S moker eCW1 ([facility]) Smoking 02/20/2020 12:00:00 AM EDT Never Smoker completed Never S moker eCW1 ([facility]) Smoking 02/20/2020 12:00:00 AM EDT Never Smoker completed Never S moker eCW1 ([facility]) Smoking 02/20/2020 12:00:00 AM EDT Never Smoker completed Never S moker eCW1 ([facility]) Smoking 02/20/2020 12:00:00 AM EDT Never Smoker completed Never S moker eCW1 ([facility]) Smoking 02/20/2020 12:00:00 AM EDT Never Smoker completed Never S moker eCW1 ([facility]) Smoking 02/20/2020 12:00:00 AM EDT Never Smoker completed Never S moker eCW1 ([facility]) Smoking 02/20/2020 12:00:00 AM EDT Never Smoker completed Never S moker eCW1 ([facility]) Smoking 02/10/2020 12:00:00 AM EDT Never Smoker completed Never S moker eCW1 ([facility]) Smoking 02/10/2020 12:00:00 AM EDT Never Smoker completed Never S moker eCW1 ([facility]) Smoking 02/10/2020 12:00:00 AM EDT Never Smoker completed Never S moker eCW1 ([facility]) Smoking 02/10/2020 12:00:00 AM EDT Never Smoker completed Never S moker eCW1 ([facility]) Vital Signs ID Date Data Source UNK Name Value Range Interpretation Code Description Data Source(s) Diastolic blood pressure 78 mm[Hg] 78 mm[Hg] eCW1 ([facility]) Body weight 115 [lb_av] 115 [lb_av] eCW1 ([facility]) Body height 62 [in_i] 62 [in_i] eCW1 ([facility]) Body mass index (BMI) [Ratio] 21.03 kg/m2 21.03 kg/m2 eCW1 ([facility]) Heart rate 94 /min 94 /min eCW1 ([facility]) Respiratory rate 18 /min 18 /min eCW1 ([facility]) Body temperature 97.5 [degF] 97.5 [degF] eCW1 ( [facility]) Systolic blood pressure 136 mm[Hg] 136 mm[Hg] e CW1 ([facility]) Systolic blood pressure 148 mm[Hg] 148 mm[Hg] e CW1 ([facility]) Body weight 122 [lb_av] 122 [lb_av] eCW1 ([facility]) Body height 62 [in_i] 62 [in_i] eCW1 ([facility]) Body mass index (BMI) [Ratio] 22.31 kg/m2 22.31 kg/m2 eCW1 ([facility]) Heart rate 101 /min 101 /min eCW1 ([facility]) Respiratory rate 20 /min 20 /min eCW1 ([facility]) Body temperature 96.6 [degF] 96.6 [degF] eCW1 ( [facility]) Diastolic blood pressure 82 mm[Hg] 82 mm[Hg] eCW1 ([facility]) Body weight 124 [lb_av] 124 [lb_av] eCW1 ([facility]) Body height 62 [in_i] 62 [in_i] eCW1 ([facility]) Body mass index (BMI) [Ratio] 22.68 kg/m2 22.68 kg/m2 eCW1 ([facility]) Body temperature 99 [degF] 99 [degF] eCW1 ([facility]) Body height 62 [in_i] 62 [in_i] eCW1 ([facility]) Body mass index (BMI) [Ratio] 22.68 kg/m2 22.68 kg/m2 eCW1 ([facility]) Heart rate 110 /min 110 /min eCW1 ([facility]) Respiratory rate 20 /min 20 /min eCW1 ([facility]) Body temperature 97.8 [degF] 97.8 [degF] eCW1 ( [facility]) Systolic blood pressure 132 mm[Hg] 132 mm[Hg] e CW1 ([facility]) Diastolic blood pressure 76 mm[Hg] 76 mm[Hg] eCW1 ([facility]) Body weight 124 [lb_av] 124 [lb_av] eCW1 ([facility]) Body temperature 97.7 [degF] 97.7 [degF] MEDENT ([facility]) Body height 61 [in_i] 61 [in_i] MEDENT ([facility]) 5'1" Body weight 124.00 [lb_av] 124.00 [lb_av] MEDEN T ([facility]) Body mass index (BMI) [Ratio] 23.4 kg/m2 23.4 k g/m2 MEDENT ([facility]) Body temperature 96.8 [degF] 96.8 [degF] MEDENT ([facility]) Systolic blood pressure 151 mm[Hg] 151 mm[Hg] M EDENT ([facility]) Diastolic blood pressure 85 mm[Hg] 85 mm[Hg] MEDENT ([facility]) Heart rate 111 /min 111 /min MEDENT ([facility]) Body temperature 98.4 [degF] 98.4 [degF] MEDENT ([facility]) Respiratory rate 14 /min 14 /min MEDENT ( [facility]) Body height 61 [in_i] 61 [in_i] MEDENT ([facility]) 5'1" Body weight 146.00 [lb_av] 146.00 [lb_av] MEDEN T ([facility]) Body mass index (BMI) [Ratio] 27.6 kg/m2 27.6 k g/m2 MEDENT ([facility]) Body weight 128 [lb_av] 128 [lb_av] eCW1 ([facility]) Body height 62 [in_i] 62 [in_i] eCW1 ([facility]) Body mass index (BMI) [Ratio] 23.41 kg/m2 23.41 kg/m2 eCW1 ([facility]) Heart rate 117 /min 117 /min eCW1 ([facility]) Respiratory rate 20 /min 20 /min eCW1 ([facility]) Body temperature 97.0 [degF] 97.0 [degF] eCW1 ( [facility]) Systolic blood pressure 126 mm[Hg] 126 mm[Hg] e CW1 ([facility]) Diastolic blood pressure 70 mm[Hg] 70 mm[Hg] eCW1 ([facility]) Diastolic blood pressure 74 mm[Hg] 74 mm[Hg] eCW1 ([facility]) Body weight 130 [lb_av] 130 [lb_av] eCW1 ([facility]) Body height 62 [in_i] 62 [in_i] eCW1 ([facility]) Body mass index (BMI) [Ratio] 23.77 kg/m2 23.77 kg/m2 eCW1 ([facility]) Heart rate 98 /min 98 /min eCW1 ([facility]) Respiratory rate 20 /min 20 /min eCW1 ([facility]) Body temperature 98.7 [degF] 98.7 [degF] eCW1 ( [facility]) Systolic blood pressure 128 mm[Hg] 128 mm[Hg] e CW1 ([facility]) Body weight 130.6 [lb_av] 130.6 [lb_av] eCW1 ([facility]) Body height 62 [in_i] 62 [in_i] eCW1 ([facility]) Body mass index (BMI) [Ratio] 23.88 kg/m2 23.88 kg/m2 eCW1 ([facility]) Heart rate 129 /min 129 /min eCW1 ([facility]) Respiratory rate 18 /min 18 /min eCW1 ([facility]) Body temperature 98.8 [degF] 98.8 [degF] eCW1 ( [facility]) Systolic blood pressure 140 mm[Hg] 140 mm[Hg] e CW1 ([facility]) Diastolic blood pressure 86 mm[Hg] 86 mm[Hg] eCW1 ([facility]) Patient Treatment Plan of Care Planned Activity Planned Date Details Description Data Source (s) Acetaminophen 325 MG / Oxycodone Hydrochloride 5 MG Or al Tablet 12/18/2020 12:00:00 AM EDT eCW1 ([facility]) Acetaminophen 325 MG / Oxycodone Hydrochloride 5 MG Or al Tablet 12/18/2020 12:00:00 AM EDT eCW1 ([facility]) Acetaminophen 325 MG / Oxycodone Hydrochloride 5 MG Or al Tablet 12/18/2020 12:00:00 AM EDT eCW1 ([facility]) valsartan 40 MG Oral Tablet 08/13/2020 12:00:00 AM EDT eCW1 ([facility]) valsartan 40 MG Oral Tablet 08/13/2020 12:00:00 AM EDT eCW1 ([facility]) valsartan 40 MG Oral Tablet 08/13/2020 12:00:00 AM EDT eCW1 ([facility]) valsartan 40 MG Oral Tablet 08/13/2020 12:00:00 AM EDT eCW1 ([facility]) valsartan 40 MG Oral Tablet 08/13/2020 12:00:00 AM EDT eCW1 ([facility]) Acetaminophen 325 MG / Oxycodone Hydrochloride 5 MG Or al Tablet 07/07/2020 12:00:00 AM EDT eCW1 ([facility]) Acetaminophen 325 MG / Oxycodone Hydrochloride 5 MG Or al Tablet 07/07/2020 12:00:00 AM EDT eCW1 ([facility]) Acetaminophen 325 MG / Oxycodone Hydrochloride 5 MG Or al Tablet 07/07/2020 12:00:00 AM EDT eCW1 ([facility]) Acetaminophen 325 MG / Oxycodone Hydrochloride 5 MG Or al Tablet 07/07/2020 12:00:00 AM EDT eCW1 ([facility]) Acetaminophen 325 MG / Oxycodone Hydrochloride 5 MG Or al Tablet 07/07/2020 12:00:00 AM EDT eCW1 ([facility]) Acetaminophen 325 MG / Oxycodone Hydrochloride 5 MG Or al Tablet 07/07/2020 12:00:00 AM EDT eCW1 ([facility]) Acetaminophen 325 MG / Oxycodone Hydrochloride 5 MG Or al Tablet 07/07/2020 12:00:00 AM EDT eCW1 ([facility]) Acetaminophen 325 MG / Oxycodone Hydrochloride 5 MG Or al Tablet 07/03/2020 12:00:00 AM EST eCW1 ([facility]) Acetaminophen 325 MG / Oxycodone Hydrochloride 5 MG Or al Tablet 04/30/2020 12:00:00 AM EST eCW1 ([facility]) Acetaminophen 325 MG / Oxycodone Hydrochloride 5 MG Or al Tablet 02/14/2020 12:00:00 AM EDT eCW1 ([facility]) Acetaminophen 325 MG / Oxycodone Hydrochloride 5 MG Or al Tablet 02/14/2020 12:00:00 AM EDT eCW1 ([facility]) Acetaminophen 325 MG / Oxycodone Hydrochloride 5 MG Or al Tablet 02/14/2020 12:00:00 AM EDT eCW1 ([facility]) Acetaminophen 325 MG / Oxycodone Hydrochloride 5 MG Or al Tablet 02/14/2020 12:00:00 AM EDT eCW1 ([facility])
[2021-02-19] MEDS ORDERED: METHYLENE BLUE 0.5% (5MG/ML) 10 ML AMP (PROVAYBLUE) As Ordered ONE (08:29)
[2021-02-19 09:35] VITALS: BP 150/76
[2021-02-19] MEDS ORDERED: NS 1,000 ML IV ONE (09:50)
--- NOTE | 2021-02-19 10:05 | ROOR ---
Patient Name: Maral Etienne Procedure Date: 02/19/2021 8:47 AM Date of : 1945 Age: 76 Room: [facility] Gender: Female Note Status: Finalized Procedure: Colonoscopy Indications: Disease activity assessment of Crohn's disease of the small bowel, Assess therapeutic response to therapy of Crohn's disease of the small bowel, Fistula assessment Providers: Shane Callejas MD Referring MD: Cezar Olvera MD Requesting Provider: Medicines: Monitored Anesthesia Care Complications: No immediate complications. Procedure: Pre-Anesthesia Assessment: - Prior to the procedure, a History and Physical was performed, and patient medications and allergies were reviewed. The patient is competent. The risks and benefits of the procedure and the sedation options and risks were discussed with the patient. All questions were answered and informed consent was obtained. Patient identification and proposed procedure were verified by the physician, the nurse and the anesthesiologist in the procedure room. Mental Status Examination: alert and oriented. Airway Examination: normal oropharyngeal airway and neck mobility. Respiratory Examination: clear to auscultation. CV Examination: normal. Prophylactic Antibiotics: The patient does not require prophylactic antibiotics. Prior Anticoagulants: The patient has taken no previous anticoagulant or antiplatelet agents. ASA Grade Assessment: II - A patient with mild systemic disease. After reviewing the risks and benefits, the patient was deemed in satisfactory condition to undergo the procedure. The anesthesia plan was to use monitored anesthesia care (MAC). Immediately prior to administration of medications, the patient was re-assessed for adequacy to receive sedatives. The heart rate, respiratory rate, oxygen saturations, blood pressure, adequacy of pulmonary ventilation, and response to care were monitored throughout the procedure. The physical status of the patient was re-assessed after the procedure. The Colonoscope was introduced through the anus and advanced to the surgical stoma. The colonoscopy was performed without difficulty. The patient tolerated the procedure well. The quality of the bowel preparation was good. No anatomical landmarks were photographed. Scope insertion time was 2 minutes. Scope withdrawal time was 9 minutes. The total duration of the procedure was 12 minutes. Findings: The area at 60 cm proximal to the stoma, entire examined ileum and ileostomy appeared normal. The ileum, 10 cm from the ileocecal valve contained a single 5 mm diverticulum. There was evidence of a widely patent double-barrel ileostomy found in the ileostomy. This was characterized by healthy appearing mucosa. An area of suspected fistular in the millie-stomal area was successfully injected with 1 mL saline with methylene blue for drug delivery. There is no endoscopic evidence of fistulas in the entire examined ileum. Impression: - The examined portion of the ileum was normal. - Ileal diverticulum. - Widely patent double-barrel ileostomy with healthy appearing mucosa at the ileostomy. - An area of suspected fistular in the millie-stomal area successfully injected. - No specimens collected. Recommendation: - Patient has a contact number available for emergencies. The signs and symptoms of potential delayed complications were discussed with the patient. Return to normal activities tomorrow. Written discharge instructions were provided to the patient. - High fiber diet. - Continue present medications. - Return to GI clinic as previously scheduled. - Return to primary care physician. Procedure Code(s): --- Professional --- 34263, Colonoscopy, flexible; with directed submucosal injection(s), any substance Diagnosis Code(s): --- Professional --- Z93.2, Ileostomy status K50.00, Crohn's disease of small intestine without complications K57.10, Diverticulosis of small intestine without perforation or abscess without bleeding CPT copyright 2019 [employer]. All rights reserved. The codes documented in this report are preliminary and upon projection engineer review may be revised to meet current compliance requirements. Shane Callejas MD Shane Callejas MD 02/19/2021 10:04:37 AM Electronically signed by Shane Callejas MD Number of Addenda: 0 Note Initiated On: 02/19/2021 8:47 AM Estimated Blood Loss: Estimated blood loss: none.
[2021-02-19] MEDS ORDERED: SODIUM CHLORIDE 0.9% INJ 10 ML SYR IV SCH ×2 (18:00)
== END 2021-02-19 10:20 | disposition home or self-care (01) ==
LOC: M OPP 08:13
PROVIDERS: ATTEND Internal Medicine Gastroenterology
DX: K50.00 Crohn's disease of small intestine without complications (principal); K57.10 Diverticulosis of small intestine without perforation or abscess without bleeding; Z93.2 Ileostomy status; Z79.891 Long term (current) use of opiate analgesic; Z79.899 Other long term (current) drug therapy; Z88.2 Allergy status to sulfonamides; Z88.8 Allergy status to other drugs, medicaments and biological substances; Z86.39 Personal history of other endocrine, nutritional and metabolic disease; Z86.79 Personal history of other diseases of the circulatory system; D64.9 Anemia, unspecified
CPT/HCPCS: 45381; J1642; Q9968

== ENCOUNTER → 2021-02-22 | Outpatient (REF) | payer MEDICARE ==
[~2021-02-22] MED LIST changes: -LIDOCAINE 2% 100MG/5ML SDV (FOR ANES.) As Ordered ONE; -NS 1,000 ML IV ONE; -ePHEDrine SULFATE 25 MG/5 ML(5MG/ML) SYRINGE As Ordered ONE; -propofoL 200 MG/20 ML VIAL As Ordered ONE
[2021-02-22 13:54] LABS: BASO % 0.5 % (0.0-1.0); EOS # 0.2 10^3/uL (0.0-0.5); EOS % 4.2 % (0.0-3.0); HEMATOCRIT 36.6 % (36.0-47.0); HEMOGLOBIN 12.1 g/dl (12.0-15.5); LYMPH # 0.8 10^3/uL (1.5-5.0); LYMPH % 19.7 % (24.0-44.0); MEAN CORPUSCULAR HEMOGLOBIN 32.1 pg (27.0-33.0); MEAN CORPUSCULAR HGB CONC 33.1 g/dl (32.0-36.5); MEAN CORPUSCULAR VOLUME 97.1 fl (80.0-96.0); MONO # 0.4 10^3/uL (0.0-0.8); NEUTROPHILS # 2.6 10^3/uL (1.5-8.5); NEUTROPHILS % 65.4 % (36.0-66.0); PLATELET COUNT, AUTOMATED 159 10^3/uL (150-450); RED BLOOD COUNT 3.77 10^6/uL (4.00-5.40)
[2021-02-22 14:43] LABS: ALBUMIN 2.7 GM/DL (3.2-5.2); CREATININE FOR GFR 1.32 MG/DL (0.55-1.30); GLOMERULAR FILTRATION RATE 41.9 (>39); PHOSPHORUS LEVEL 3.3 MG/DL (2.5-4.9); POTASSIUM SERUM 4.3 MEQ/L (3.5-5.1); PREALBUMIN 17.7 MG/DL (20.0-40.0)
== END ==
LOC: M SHH 12:52
PROVIDERS: ATTEND Internal Medicine Gastroenterology
DX: E44.0 Moderate protein-calorie malnutrition (principal); K50.018 Crohn's disease of small intestine with other complication

== ENCOUNTER → 2021-03-01 | Outpatient (REF) | payer MEDICARE ==
[2021-03-01 13:54] LABS: HEMATOCRIT 39.8 % (36.0-47.0); HEMOGLOBIN 13.3 g/dl (12.0-15.5); MEAN CORPUSCULAR HEMOGLOBIN 32.5 pg (27.0-33.0); MEAN CORPUSCULAR HGB CONC 33.4 g/dl (32.0-36.5); MEAN CORPUSCULAR VOLUME 97.3 fl (80.0-96.0); PLATELET COUNT, AUTOMATED 186 10^3/uL (150-450); RED BLOOD COUNT 4.09 10^6/uL (4.00-5.40)
[2021-03-01 14:29] LABS: ALBUMIN 2.8 GM/DL (3.2-5.2); CALCIUM LEVEL 9.2 MG/DL (8.8-10.2); CREATININE FOR GFR 1.24 MG/DL (0.55-1.30); POTASSIUM SERUM 4.4 MEQ/L (3.5-5.1); PREALBUMIN 22.9 MG/DL (20.0-40.0)
== END ==
LOC: M SHH 12:50
PROVIDERS: ATTEND Internal Medicine Gastroenterology
DX: K50.018 Crohn's disease of small intestine with other complication (principal)

== ENCOUNTER → 2021-03-08 | Outpatient (REF) | payer MEDICARE ==
[2021-03-08 12:57] LABS: BASO % 0.5 % (0.0-1.0); EOS # 0.1 10^3/uL (0.0-0.5); EOS % 2.9 % (0.0-3.0); HEMATOCRIT 38.5 % (36.0-47.0); HEMOGLOBIN 12.9 g/dl (12.0-15.5); LYMPH # 0.7 10^3/uL (1.5-5.0); LYMPH % 17.4 % (24.0-44.0); MEAN CORPUSCULAR HEMOGLOBIN 32.4 pg (27.0-33.0); MEAN CORPUSCULAR HGB CONC 33.5 g/dl (32.0-36.5); MEAN CORPUSCULAR VOLUME 96.7 fl (80.0-96.0); MONO # 0.4 10^3/uL (0.0-0.8); MONO % 8.6 % (2.0-8.0); NEUTROPHILS % 70.4 % (36.0-66.0); PLATELET COUNT, AUTOMATED 178 10^3/uL (150-450); RED BLOOD COUNT 3.98 10^6/uL (4.00-5.40); WHITE BLOOD COUNT 4.2 10^3/uL (4.0-10.0)
[2021-03-08 13:34] LABS: ALBUMIN 2.7 GM/DL (3.2-5.2); CALCIUM LEVEL 9.2 MG/DL (8.8-10.2); CREATININE FOR GFR 1.11 MG/DL (0.55-1.30); GLOMERULAR FILTRATION RATE 51.2 (>39); MAGNESIUM LEVEL 2.1 MG/DL (1.8-2.4); PHOSPHORUS LEVEL 3.2 MG/DL (2.5-4.9); POTASSIUM SERUM 4.5 MEQ/L (3.5-5.1)
== END ==
LOC: M LAB REF 12:44
PROVIDERS: ATTEND Internal Medicine Gastroenterology
DX: E44.0 Moderate protein-calorie malnutrition (principal); K50.018 Crohn's disease of small intestine with other complication

== ENCOUNTER → 2021-03-15 | Outpatient (REF) | payer MEDICARE ==
[2021-03-15 15:51] LABS: BASO % 0.6 % (0.0-1.0); EOS # 0.1 10^3/uL (0.0-0.5); EOS % 2.5 % (0.0-3.0); HEMATOCRIT 38.3 % (36.0-47.0); HEMOGLOBIN 12.6 g/dl (12.0-15.5); LYMPH # 0.8 10^3/uL (1.5-5.0); LYMPH % 17.2 % (24.0-44.0); MEAN CORPUSCULAR HEMOGLOBIN 31.7 pg (27.0-33.0); MEAN CORPUSCULAR HGB CONC 32.9 g/dl (32.0-36.5); MEAN CORPUSCULAR VOLUME 96.2 fl (80.0-96.0); MONO # 0.4 10^3/uL (0.0-0.8); MONO % 8.5 % (2.0-8.0); NEUTROPHILS # 3.3 10^3/uL (1.5-8.5); PLATELET COUNT, AUTOMATED 178 10^3/uL (150-450); RED BLOOD COUNT 3.98 10^6/uL (4.00-5.40); WHITE BLOOD COUNT 4.7 10^3/uL (4.0-10.0)
[2021-03-15 16:21] LABS: ALBUMIN 2.7 GM/DL (3.2-5.2); CALCIUM LEVEL 8.8 MG/DL (8.8-10.2); CREATININE FOR GFR 1.25 MG/DL (0.55-1.30); GLOMERULAR FILTRATION RATE 44.6 (>39); MAGNESIUM LEVEL 2.1 MG/DL (1.8-2.4); PHOSPHORUS LEVEL 3.1 MG/DL (2.5-4.9); POTASSIUM SERUM 4.8 MEQ/L (3.5-5.1); PREALBUMIN 21.7 MG/DL (20.0-40.0)
== END ==
LOC: M SHH 15:03 → M LAB REF 15:03
PROVIDERS: ATTEND Internal Medicine Gastroenterology
DX: E44.0 Moderate protein-calorie malnutrition (principal); K50.018 Crohn's disease of small intestine with other complication

== ENCOUNTER → 2021-03-22 | Outpatient (REF) | payer MEDICARE ==
[~2021-03-22] MED LIST changes: -CEFD1CAP8 PO; +CEFD300C41 PO; +LOSA25TA13 PO; -LOSA25TA14 PO; +LOSA50TA28 PO; -LOSA50TA88 PO; +OXYC-600 PO; -OXYC1TAB PO
[2021-03-22 14:30] LABS: BASO % 0.5 % (0.0-1.0); EOS # 0.2 10^3/uL (0.0-0.5); EOS % 4.3 % (0.0-3.0); HEMATOCRIT 38.4 % (36.0-47.0); HEMOGLOBIN 12.6 g/dl (12.0-15.5); LYMPH # 0.8 10^3/uL (1.5-5.0); LYMPH % 18.8 % (24.0-44.0); MEAN CORPUSCULAR HEMOGLOBIN 31.9 pg (27.0-33.0); MEAN CORPUSCULAR HGB CONC 32.8 g/dl (32.0-36.5); MEAN CORPUSCULAR VOLUME 97.2 fl (80.0-96.0); MONO # 0.4 10^3/uL (0.0-0.8); MONO % 8.5 % (2.0-8.0); NEUTROPHILS # 2.8 10^3/uL (1.5-8.5); NEUTROPHILS % 67.9 % (36.0-66.0); PLATELET COUNT, AUTOMATED 164 10^3/uL (150-450); RED BLOOD COUNT 3.95 10^6/uL (4.00-5.40); WHITE BLOOD COUNT 4.1 10^3/uL (4.0-10.0)
[2021-03-22 15:03] LABS: ALBUMIN 2.7 GM/DL (3.2-5.2); CALCIUM LEVEL 8.8 MG/DL (8.8-10.2); CREATININE FOR GFR 1.21 MG/DL (0.55-1.30); GLOMERULAR FILTRATION RATE 46.3 (>39); PHOSPHORUS LEVEL 3.4 MG/DL (2.5-4.9); POTASSIUM SERUM 4.8 MEQ/L (3.5-5.1); PREALBUMIN 22.3 MG/DL (20.0-40.0)
== END ==
LOC: M SHH 14:06
PROVIDERS: ATTEND Internal Medicine Gastroenterology
DX: E44.0 Moderate protein-calorie malnutrition (principal); K50.018 Crohn's disease of small intestine with other complication

== ENCOUNTER → 2021-03-29 | Outpatient (REF) | payer MEDICARE ==
[~2021-03-29] MED LIST changes: +CEFD1CAP8 PO; -CEFD300C41 PO; -LOSA25TA13 PO; +LOSA25TA14 PO; -LOSA50TA28 PO; +LOSA50TA88 PO; -OXYC-600 PO; +OXYC1TAB PO
[2021-03-29 13:14] LABS: BASO % 0.5 % (0.0-1.0); EOS # 0.1 10^3/uL (0.0-0.5); EOS % 3.4 % (0.0-3.0); HEMATOCRIT 36.9 % (36.0-47.0); HEMOGLOBIN 12.2 g/dl (12.0-15.5); LYMPH # 0.7 10^3/uL (1.5-5.0); LYMPH % 18.8 % (24.0-44.0); MEAN CORPUSCULAR HEMOGLOBIN 31.9 pg (27.0-33.0); MEAN CORPUSCULAR HGB CONC 33.1 g/dl (32.0-36.5); MEAN CORPUSCULAR VOLUME 96.3 fl (80.0-96.0); MONO # 0.3 10^3/uL (0.0-0.8); MONO % 8.6 % (2.0-8.0); NEUTROPHILS # 2.6 10^3/uL (1.5-8.5); NEUTROPHILS % 68.4 % (36.0-66.0); PLATELET COUNT, AUTOMATED 162 10^3/uL (150-450); RED BLOOD COUNT 3.83 10^6/uL (4.00-5.40); WHITE BLOOD COUNT 3.8 10^3/uL (4.0-10.0)
[2021-03-29 14:08] LABS: ALBUMIN 2.6 GM/DL (3.2-5.2); CALCIUM LEVEL 9.7 MG/DL (8.8-10.2); CREATININE FOR GFR 1.16 MG/DL (0.55-1.30); GLOMERULAR FILTRATION RATE 48.6 (>39); MAGNESIUM LEVEL 1.7 MG/DL (1.8-2.4); PHOSPHORUS LEVEL 3.4 MG/DL (2.5-4.9); POTASSIUM SERUM 4.3 MEQ/L (3.5-5.1); PREALBUMIN 22.5 MG/DL (20.0-40.0)
== END ==
LOC: M SHH 12:41
PROVIDERS: ATTEND Internal Medicine Gastroenterology
DX: E44.0 Moderate protein-calorie malnutrition (principal); K50.018 Crohn's disease of small intestine with other complication

== ENCOUNTER 2021-04-02 08:05 | Outpatient (CLI) | payer MEDICARE ==
[~2021-04-02] VITALS: Ht 154.9 cm; Wt 50.9 kg
[~2021-04-02 08:05] MED LIST changes: -CEFD1CAP8 PO; +CEFD300C41 PO; +LOSA25TA13 PO; -LOSA25TA14 PO; +LOSA50TA28 PO; -LOSA50TA88 PO; +OXYC-600 PO; -OXYC1TAB PO
[2021-04-02 08:10] VITALS: BP 141/64
[2021-04-02] MEDS ORDERED: SODIUM CHLORIDE 0.9% INJ 10 ML SYR IV SCH (08:30)
[2021-04-02] MEDS ORDERED: VEDOLIZUMAB 300 MG in NS 250 ML IV ONE (08:30)
[2021-04-02 09:50] VITALS: BP 128/69
== END 2021-04-02 10:00 | disposition home or self-care (01) ==
LOC: M INFU 08:05
PROVIDERS: ATTEND Internal Medicine Gastroenterology
DX: K50.90 Crohn's disease, unspecified, without complications (principal); Z88.2 Allergy status to sulfonamides; Z88.8 Allergy status to other drugs, medicaments and biological substances
CPT/HCPCS: 96365; 96523; J1642

== ENCOUNTER → 2021-04-05 | Outpatient (REF) | payer MEDICARE ==
[~2021-04-05] MED LIST changes: -OXYC-600 PO; +OXYC1TAB PO
[2021-04-05 12:18] LABS: BASO % 0.4 % (0.0-1.0); EOS # 0.1 10^3/uL (0.0-0.5); EOS % 2.8 % (0.0-3.0); HEMATOCRIT 37.9 % (36.0-47.0); HEMOGLOBIN 12.6 g/dl (12.0-15.5); LYMPH % 22.4 % (24.0-44.0); MEAN CORPUSCULAR HGB CONC 33.2 g/dl (32.0-36.5); MEAN CORPUSCULAR VOLUME 96.2 fl (80.0-96.0); MONO # 0.4 10^3/uL (0.0-0.8); MONO % 9.4 % (2.0-8.0); NEUTROPHILS % 64.8 % (36.0-66.0); PLATELET COUNT, AUTOMATED 163 10^3/uL (150-450); RED BLOOD COUNT 3.94 10^6/uL (4.00-5.40); WHITE BLOOD COUNT 4.6 10^3/uL (4.0-10.0)
[2021-04-05 12:56] LABS: ALBUMIN 2.8 GM/DL (3.2-5.2); CALCIUM LEVEL 9.3 MG/DL (8.8-10.2); CREATININE FOR GFR 1.22 MG/DL (0.55-1.30); GLOMERULAR FILTRATION RATE 45.9 (>39); MAGNESIUM LEVEL 2.2 MG/DL (1.8-2.4); PHOSPHORUS LEVEL 2.9 MG/DL (2.5-4.9); POTASSIUM SERUM 4.1 MEQ/L (3.5-5.1); PREALBUMIN 20.9 MG/DL (20.0-40.0)
== END ==
LOC: M SHH 11:51
PROVIDERS: ATTEND Internal Medicine Gastroenterology
DX: E44.0 Moderate protein-calorie malnutrition (principal); K50.018 Crohn's disease of small intestine with other complication
CPT/HCPCS: 80048; 82040; 83735; 84100; 84134; 85025; 96372; J3420

== ENCOUNTER → 2021-04-12 | Outpatient (REF) | payer MEDICARE ==
[~2021-04-12] MED LIST changes: +OXYC-600 PO; -OXYC1TAB PO
[2021-04-12 12:42] LABS: BASO % 0.2 % (0.0-1.0); EOS # 0.1 10^3/uL (0.0-0.5); EOS % 3.1 % (0.0-3.0); HEMATOCRIT 37.9 % (36.0-47.0); HEMOGLOBIN 12.5 g/dl (12.0-15.5); LYMPH # 0.5 10^3/uL (1.5-5.0); LYMPH % 11.9 % (24.0-44.0); MEAN CORPUSCULAR HEMOGLOBIN 31.8 pg (27.0-33.0); MEAN CORPUSCULAR VOLUME 96.4 fl (80.0-96.0); MONO # 0.4 10^3/uL (0.0-0.8); MONO % 9.1 % (2.0-8.0); NEUTROPHILS # 3.4 10^3/uL (1.5-8.5); NEUTROPHILS % 75.5 % (36.0-66.0); PLATELET COUNT, AUTOMATED 160 10^3/uL (150-450); RED BLOOD COUNT 3.93 10^6/uL (4.00-5.40); WHITE BLOOD COUNT 4.5 10^3/uL (4.0-10.0)
[2021-04-12 13:14] LABS: ALBUMIN 2.9 GM/DL (3.2-5.2); CALCIUM LEVEL 9.1 MG/DL (8.8-10.2); CREATININE FOR GFR 1.08 MG/DL (0.55-1.30); GLOMERULAR FILTRATION RATE 52.8 (>39); PHOSPHORUS LEVEL 3.5 MG/DL (2.5-4.9); POTASSIUM SERUM 4.2 MEQ/L (3.5-5.1); PREALBUMIN 19.1 MG/DL (20.0-40.0)
== END ==
LOC: M SHH 12:21
PROVIDERS: ATTEND Internal Medicine Gastroenterology
DX: E44.0 Moderate protein-calorie malnutrition (principal); K50.018 Crohn's disease of small intestine with other complication

== ENCOUNTER → 2021-04-19 | Outpatient (REF) | payer MEDICARE ==
[2021-04-19 13:36] LABS: BASO % 0.5 % (0.0-1.0); EOS # 0.1 10^3/uL (0.0-0.5); EOS % 3.2 % (0.0-3.0); HEMOGLOBIN 12.9 g/dl (12.0-15.5); LYMPH # 0.7 10^3/uL (1.5-5.0); LYMPH % 18.1 % (24.0-44.0); MEAN CORPUSCULAR HEMOGLOBIN 31.5 pg (27.0-33.0); MEAN CORPUSCULAR HGB CONC 33.1 g/dl (32.0-36.5); MEAN CORPUSCULAR VOLUME 95.1 fl (80.0-96.0); MONO # 0.3 10^3/uL (0.0-0.8); MONO % 7.6 % (2.0-8.0); NEUTROPHILS # 2.6 10^3/uL (1.5-8.5); NEUTROPHILS % 70.3 % (36.0-66.0); PLATELET COUNT, AUTOMATED 180 10^3/uL (150-450); WHITE BLOOD COUNT 3.7 10^3/uL (4.0-10.0)
[2021-04-19 14:01] LABS: ALBUMIN 2.9 GM/DL (3.2-5.2); CALCIUM LEVEL 9.2 MG/DL (8.8-10.2); CREATININE FOR GFR 1.25 MG/DL (0.55-1.30); GLOMERULAR FILTRATION RATE 44.6 (>39); MAGNESIUM LEVEL 2.2 MG/DL (1.8-2.4); PHOSPHORUS LEVEL 3.9 MG/DL (2.5-4.9); POTASSIUM SERUM 4.5 MEQ/L (3.5-5.1)
[2021-04-23 16:59] LABS: PREALBUMIN 26.5 MG/DL (20.0-40.0)
== END ==
LOC: M SHH 13:08
PROVIDERS: ATTEND Internal Medicine Gastroenterology
DX: E44.0 Moderate protein-calorie malnutrition (principal); K50.818 Crohn's disease of both small and large intestine with other complication

== ENCOUNTER → 2021-04-26 | Outpatient (REF) | payer MEDICARE ==
[~2021-04-26] MED LIST changes: +CEFD1CAP8 PO; -CEFD300C41 PO; -LOSA25TA13 PO; +LOSA25TA14 PO; -LOSA50TA28 PO; +LOSA50TA88 PO; -OXYC-600 PO; +OXYC1TAB PO
[2021-04-26 14:09] LABS: BASO % 0.5 % (0.0-1.0); EOS # 0.2 10^3/uL (0.0-0.5); EOS % 4.1 % (0.0-3.0); HEMATOCRIT 37.2 % (36.0-47.0); HEMOGLOBIN 12.3 g/dl (12.0-15.5); LYMPH # 0.7 10^3/uL (1.5-5.0); LYMPH % 15.8 % (24.0-44.0); MEAN CORPUSCULAR HEMOGLOBIN 31.6 pg (27.0-33.0); MEAN CORPUSCULAR HGB CONC 33.1 g/dl (32.0-36.5); MEAN CORPUSCULAR VOLUME 95.6 fl (80.0-96.0); MONO # 0.4 10^3/uL (0.0-0.8); MONO % 9.2 % (2.0-8.0); NEUTROPHILS # 2.9 10^3/uL (1.5-8.5); NEUTROPHILS % 69.9 % (36.0-66.0); PLATELET COUNT, AUTOMATED 171 10^3/uL (150-450); RED BLOOD COUNT 3.89 10^6/uL (4.00-5.40); WHITE BLOOD COUNT 4.1 10^3/uL (4.0-10.0)
[2021-04-26 14:39] LABS: ALBUMIN 2.8 GM/DL (3.2-5.2); CALCIUM LEVEL 8.7 MG/DL (8.8-10.2); CREATININE FOR GFR 1.23 MG/DL (0.55-1.30); GLOMERULAR FILTRATION RATE 45.4 (>39); PHOSPHORUS LEVEL 3.3 MG/DL (2.5-4.9); POTASSIUM SERUM 4.6 MEQ/L (3.5-5.1)
== END ==
LOC: M SHH 13:32
PROVIDERS: ATTEND Internal Medicine Gastroenterology
DX: E44.0 Moderate protein-calorie malnutrition (principal); K50.018 Crohn's disease of small intestine with other complication

== ENCOUNTER → 2021-05-03 | Outpatient (REF) | payer MEDICARE ==
[~2021-05-03] MED LIST changes: -CEFD1CAP8 PO; +CEFD300C41 PO; +LOSA25TA13 PO; -LOSA25TA14 PO; +LOSA50TA28 PO; -LOSA50TA88 PO
[2021-05-03 14:41] LABS: BASO % 0.7 % (0.0-1.0); EOS # 0.1 10^3/uL (0.0-0.5); EOS % 2.8 % (0.0-3.0); HEMOGLOBIN 12.7 g/dl (12.0-15.5); LYMPH # 0.5 10^3/uL (1.5-5.0); LYMPH % 10.9 % (24.0-44.0); MEAN CORPUSCULAR HEMOGLOBIN 31.8 pg (27.0-33.0); MEAN CORPUSCULAR HGB CONC 33.4 g/dl (32.0-36.5); MONO # 0.4 10^3/uL (0.0-0.8); MONO % 8.3 % (2.0-8.0); NEUTROPHILS # 3.3 10^3/uL (1.5-8.5); NEUTROPHILS % 77.3 % (36.0-66.0); PLATELET COUNT, AUTOMATED 173 10^3/uL (150-450); WHITE BLOOD COUNT 4.2 10^3/uL (4.0-10.0)
[2021-05-03 15:11] LABS: ALBUMIN 2.8 GM/DL (3.2-5.2); CREATININE FOR GFR 1.25 MG/DL (0.55-1.30); GLOMERULAR FILTRATION RATE 44.6 (>39); PHOSPHORUS LEVEL 3.6 MG/DL (2.5-4.9); POTASSIUM SERUM 4.8 MEQ/L (3.5-5.1); PREALBUMIN 27.9 MG/DL (20.0-40.0)
== END ==
LOC: M LAB REF 14:04 → M SHH 14:04
PROVIDERS: ATTEND Internal Medicine Gastroenterology
DX: E44.0 Moderate protein-calorie malnutrition (principal); K50.018 Crohn's disease of small intestine with other complication

== ENCOUNTER → 2021-05-10 | Outpatient (REF) | payer MEDICARE ==
[~2021-05-10] MED LIST changes: +OXYC-600 PO; -OXYC1TAB PO
[2021-05-10 11:53] LABS: BASO % 0.3 % (0.0-1.0); EOS # 0.1 10^3/uL (0.0-0.5); EOS % 3.2 % (0.0-3.0); HEMATOCRIT 37.9 % (36.0-47.0); HEMOGLOBIN 12.4 g/dl (12.0-15.5); LYMPH # 0.4 10^3/uL (1.5-5.0); LYMPH % 10.2 % (24.0-44.0); MEAN CORPUSCULAR HEMOGLOBIN 31.6 pg (27.0-33.0); MEAN CORPUSCULAR HGB CONC 32.7 g/dl (32.0-36.5); MEAN CORPUSCULAR VOLUME 96.4 fl (80.0-96.0); MONO # 0.4 10^3/uL (0.0-0.8); MONO % 12.8 % (2.0-8.0); NEUTROPHILS # 2.5 10^3/uL (1.5-8.5); NEUTROPHILS % 73.5 % (36.0-66.0); PLATELET COUNT, AUTOMATED 142 10^3/uL (150-450); RED BLOOD COUNT 3.93 10^6/uL (4.00-5.40); WHITE BLOOD COUNT 3.4 10^3/uL (4.0-10.0)
[2021-05-10 12:22] LABS: ALBUMIN 2.8 GM/DL (3.2-5.2); CREATININE FOR GFR 1.25 MG/DL (0.55-1.30); GLOMERULAR FILTRATION RATE 44.6 (>39); PHOSPHORUS LEVEL 3.4 MG/DL (2.5-4.9); POTASSIUM SERUM 3.9 MEQ/L (3.5-5.1); PREALBUMIN 18.9 MG/DL (20.0-40.0)
== END ==
LOC: M SHH 11:24
PROVIDERS: ATTEND Internal Medicine Gastroenterology
DX: E44.0 Moderate protein-calorie malnutrition (principal); K50.018 Crohn's disease of small intestine with other complication

== ENCOUNTER → 2021-05-17 | Outpatient (REF) | payer MEDICARE ==
[2021-05-17 14:04] LABS: BASO % 0.3 % (0.0-1.0); EOS # 0.1 10^3/uL (0.0-0.5); EOS % 3.4 % (0.0-3.0); HEMOGLOBIN 12.8 g/dl (12.0-15.5); LYMPH # 0.6 10^3/uL (1.5-5.0); LYMPH % 19.6 % (24.0-44.0); MEAN CORPUSCULAR HEMOGLOBIN 31.4 pg (27.0-33.0); MEAN CORPUSCULAR HGB CONC 32.8 g/dl (32.0-36.5); MEAN CORPUSCULAR VOLUME 95.8 fl (80.0-96.0); MONO # 0.3 10^3/uL (0.0-0.8); MONO % 7.6 % (2.0-8.0); NEUTROPHILS # 2.3 10^3/uL (1.5-8.5); NEUTROPHILS % 68.8 % (36.0-66.0); PLATELET COUNT, AUTOMATED 156 10^3/uL (150-450); RED BLOOD COUNT 4.07 10^6/uL (4.00-5.40); WHITE BLOOD COUNT 3.3 10^3/uL (4.0-10.0)
[2021-05-17 14:50] LABS: ALBUMIN 2.7 GM/DL (3.2-5.2); CREATININE FOR GFR 1.28 MG/DL (0.55-1.30); GLOMERULAR FILTRATION RATE 43.4 (>39); MAGNESIUM LEVEL 2.3 MG/DL (1.8-2.4); PHOSPHORUS LEVEL 3.1 MG/DL (2.5-4.9); POTASSIUM SERUM 4.5 MEQ/L (3.5-5.1); PREALBUMIN 17.5 MG/DL (20.0-40.0)
== END ==
LOC: M SHH 13:41
PROVIDERS: ATTEND Internal Medicine Gastroenterology
DX: K50.818 Crohn's disease of both small and large intestine with other complication (principal); E44.0 Moderate protein-calorie malnutrition

== ENCOUNTER → 2021-05-24 | Outpatient (REF) | payer MEDICARE ==
[2021-05-24 14:42] LABS: BASO % 0.5 % (0.0-1.0); EOS # 0.1 10^3/uL (0.0-0.5); EOS % 3.3 % (0.0-3.0); HEMATOCRIT 37.3 % (36.0-47.0); HEMOGLOBIN 12.2 g/dl (12.0-15.5); LYMPH # 0.7 10^3/uL (1.5-5.0); LYMPH % 16.2 % (24.0-44.0); MEAN CORPUSCULAR HEMOGLOBIN 31.1 pg (27.0-33.0); MEAN CORPUSCULAR HGB CONC 32.7 g/dl (32.0-36.5); MEAN CORPUSCULAR VOLUME 95.2 fl (80.0-96.0); MONO # 0.4 10^3/uL (0.0-0.8); MONO % 8.7 % (2.0-8.0); NEUTROPHILS % 71.1 % (36.0-66.0); PLATELET COUNT, AUTOMATED 188 10^3/uL (150-450); RED BLOOD COUNT 3.92 10^6/uL (4.00-5.40); WHITE BLOOD COUNT 4.3 10^3/uL (4.0-10.0)
[2021-05-24 15:09] LABS: ALBUMIN 2.6 GM/DL (3.2-5.2); CALCIUM LEVEL 9.2 MG/DL (8.8-10.2); CREATININE FOR GFR 1.29 MG/DL (0.55-1.30); MAGNESIUM LEVEL 2.2 MG/DL (1.8-2.4); PHOSPHORUS LEVEL 3.3 MG/DL (2.5-4.9); POTASSIUM SERUM 4.2 MEQ/L (3.5-5.1); PREALBUMIN 19.9 MG/DL (20.0-40.0)
== END ==
LOC: M SHH 13:46
PROVIDERS: ATTEND Internal Medicine Gastroenterology
DX: E44.0 Moderate protein-calorie malnutrition (principal); K50.018 Crohn's disease of small intestine with other complication

== ENCOUNTER 2021-05-28 08:29 | Outpatient (CLI) | payer MEDICARE ==
[~2021-05-28] VITALS: Ht 154.9 cm; Wt 50.9 kg
[2021-05-28] MEDS ORDERED: VEDOLIZUMAB 300 MG in NS 250 ML IV ONE (08:30)
[2021-05-28 08:35] VITALS: BP 156/70
[2021-05-28] MEDS ORDERED: SODIUM CHLORIDE 0.9% INJ 10 ML SYR IV PRN (09:00)
== END 2021-05-28 09:15 | disposition home or self-care (01) ==
LOC: M INFU 08:29
PROVIDERS: ATTEND Internal Medicine Gastroenterology
DX: K50.90 Crohn's disease, unspecified, without complications (principal); Z88.2 Allergy status to sulfonamides; Z88.8 Allergy status to other drugs, medicaments and biological substances

== ENCOUNTER → 2021-05-31 | Outpatient (REF) | payer MEDICARE ==
[2021-05-31 14:17] LABS: BASO % 0.5 % (0.0-1.0); EOS # 0.1 10^3/uL (0.0-0.5); EOS % 3.4 % (0.0-3.0); HEMATOCRIT 37.3 % (36.0-47.0); HEMOGLOBIN 11.9 g/dl (12.0-15.5); LYMPH # 0.7 10^3/uL (1.5-5.0); LYMPH % 18.7 % (24.0-44.0); MEAN CORPUSCULAR HEMOGLOBIN 31.1 pg (27.0-33.0); MEAN CORPUSCULAR HGB CONC 31.9 g/dl (32.0-36.5); MEAN CORPUSCULAR VOLUME 97.4 fl (80.0-96.0); MONO # 0.4 10^3/uL (0.0-0.8); MONO % 9.5 % (2.0-8.0); NEUTROPHILS # 2.6 10^3/uL (1.5-8.5); NEUTROPHILS % 67.6 % (36.0-66.0); PLATELET COUNT, AUTOMATED 171 10^3/uL (150-450); RED BLOOD COUNT 3.83 10^6/uL (4.00-5.40); WHITE BLOOD COUNT 3.8 10^3/uL (4.0-10.0)
[2021-05-31 14:45] LABS: ALBUMIN 2.7 GM/DL (3.2-5.2); CALCIUM LEVEL 8.8 MG/DL (8.8-10.2); CREATININE FOR GFR 1.22 MG/DL (0.55-1.30); GLOMERULAR FILTRATION RATE 45.9 (>39); PHOSPHORUS LEVEL 3.4 MG/DL (2.5-4.9); POTASSIUM SERUM 4.3 MEQ/L (3.5-5.1); PREALBUMIN 23.4 MG/DL (20.0-40.0)
[2021-06-01 08:38] LABS: MAGNESIUM LEVEL 1.9 MG/DL (1.7-2.2)
== END ==
LOC: M SHH 13:34
PROVIDERS: ATTEND Internal Medicine Gastroenterology
DX: E44.0 Moderate protein-calorie malnutrition (principal); K50.018 Crohn's disease of small intestine with other complication

== ENCOUNTER → 2021-06-01 | Outpatient (CLI) | payer MEDICARE | LOC: M WHC 08:38 | PROVIDERS: ATTEND Family Medicine | DX: N63.14 Unspecified lump in the right breast, lower inner quadrant (principal) | CPT/HCPCS: 76642; 77065; G0279 ==

== ENCOUNTER → 2021-06-07 | Outpatient (REF) | payer MEDICARE ==
[2021-06-07 13:42] LABS: BASO % 0.2 % (0.0-1.0); EOS # 0.1 10^3/uL (0.0-0.5); EOS % 2.3 % (0.0-3.0); HEMOGLOBIN 11.9 g/dl (12.0-15.5); LYMPH # 0.6 10^3/uL (1.5-5.0); LYMPH % 13.6 % (24.0-44.0); MEAN CORPUSCULAR HEMOGLOBIN 31.2 pg (27.0-33.0); MEAN CORPUSCULAR HGB CONC 32.2 g/dl (32.0-36.5); MEAN CORPUSCULAR VOLUME 96.9 fl (80.0-96.0); MONO # 0.4 10^3/uL (0.0-0.8); MONO % 8.3 % (2.0-8.0); NEUTROPHILS # 3.3 10^3/uL (1.5-8.5); NEUTROPHILS % 75.6 % (36.0-66.0); PLATELET COUNT, AUTOMATED 149 10^3/uL (150-450); RED BLOOD COUNT 3.82 10^6/uL (4.00-5.40); WHITE BLOOD COUNT 4.3 10^3/uL (4.0-10.0)
[2021-06-07 14:15] LABS: ALBUMIN 2.7 GM/DL (3.2-5.2); CALCIUM LEVEL 8.8 MG/DL (8.8-10.2); CREATININE FOR GFR 1.19 MG/DL (0.55-1.30); GLOMERULAR FILTRATION RATE 47.2 (>39); PHOSPHORUS LEVEL 3.4 MG/DL (2.5-4.9); POTASSIUM SERUM 4.8 MEQ/L (3.5-5.1); PREALBUMIN 28.2 MG/DL (20.0-40.0)
== END ==
LOC: M SHH 13:13
PROVIDERS: ATTEND Internal Medicine Gastroenterology
DX: E44.0 Moderate protein-calorie malnutrition (principal); K50.018 Crohn's disease of small intestine with other complication

== ENCOUNTER 2021-06-10 13:05 | Outpatient (CLI) | payer MEDICARE ==
[~2021-06-10] VITALS: Ht 154.9 cm; Wt 50.9 kg
[~2021-06-10 13:05] MED LIST changes: +SODIUM CHLORIDE 0.9% INJ 10 ML SYR IV SCH; +VEDOLIZUMAB 300 MG in NS 250 ML IV ONE
[2021-06-10 13:10] VITALS: BP 167/79
[2021-06-10 14:15] VITALS: BP 129/65
== END 2021-06-10 14:15 | disposition home or self-care (01) ==
LOC: M INFU 13:05
PROVIDERS: ATTEND Internal Medicine Gastroenterology
DX: K50.90 Crohn's disease, unspecified, without complications (principal); Z88.2 Allergy status to sulfonamides; Z88.8 Allergy status to other drugs, medicaments and biological substances
CPT/HCPCS: 96365; J1642

== ENCOUNTER → 2021-06-14 | Outpatient (REF) | payer MEDICARE ==
[~2021-06-14] MED LIST changes: -SODIUM CHLORIDE 0.9% INJ 10 ML SYR IV SCH; -VEDOLIZUMAB 300 MG in NS 250 ML IV ONE
[2021-06-14 13:42] LABS: FREE T4 1.39 NG/DL (0.76-1.46); PERCENT SATURATION 35.7 % (13.2-45.0); THYROID STIMULATING HORMONE 1.17 uIU/ML (0.358-3.740)
[2021-06-14 13:43] LABS: TOTAL 25(OH) VITAMIN D 21.7 NG/ML (30.0-100.0)
== END ==
LOC: M SHH 12:36
PROVIDERS: ATTEND Family Medicine
DX: D50.8 Other iron deficiency anemias (principal); E55.9 Vitamin D deficiency, unspecified; Z91.89 Other specified personal risk factors, not elsewhere classified; N18.31 Chronic kidney disease, stage 3a; K50.018 Crohn's disease of small intestine with other complication; E44.0 Moderate protein-calorie malnutrition; N25.81 Secondary hyperparathyroidism of renal origin

== ENCOUNTER → 2021-06-14 | Outpatient (REF) | payer MEDICARE ==
[2021-06-14 13:04] LABS: BASO % 0.5 % (0.0-1.0); EOS # 0.1 10^3/uL (0.0-0.5); EOS % 2.8 % (0.0-3.0); HEMATOCRIT 36.7 % (36.0-47.0); LYMPH # 0.6 10^3/uL (1.5-5.0); LYMPH % 15.5 % (24.0-44.0); MEAN CORPUSCULAR HEMOGLOBIN 31.4 pg (27.0-33.0); MEAN CORPUSCULAR HGB CONC 32.7 g/dl (32.0-36.5); MEAN CORPUSCULAR VOLUME 96.1 fl (80.0-96.0); MONO # 0.4 10^3/uL (0.0-0.8); MONO % 9.3 % (2.0-8.0); NEUTROPHILS # 2.9 10^3/uL (1.5-8.5); NEUTROPHILS % 71.6 % (36.0-66.0); PLATELET COUNT, AUTOMATED 142 10^3/uL (150-450); RED BLOOD COUNT 3.82 10^6/uL (4.00-5.40)
[2021-06-14 13:36] LABS: ALBUMIN 2.7 GM/DL (3.2-5.2); CALCIUM LEVEL 8.6 MG/DL (8.8-10.2); CREATININE FOR GFR 1.27 MG/DL (0.55-1.30); GLOMERULAR FILTRATION RATE 43.8 (>39); PHOSPHORUS LEVEL 3.1 MG/DL (2.5-4.9); POTASSIUM SERUM 4.1 MEQ/L (3.5-5.1); URIC ACID 5.4 MG/DL (2.6-6.0)
[2021-06-14 13:44] LABS: PTH INTACT 129.6 PG/ML (18.5-88.0)
== END ==
LOC: M SHH 12:34
PROVIDERS: ATTEND Internal Medicine Nephrology
DX: N18.31 Chronic kidney disease, stage 3a (principal); N25.81 Secondary hyperparathyroidism of renal origin

== ENCOUNTER → 2021-06-14 | Outpatient (REF) | payer MEDICARE ==
[2021-06-14 13:49] LABS: ALBUMIN 2.8 GM/DL (3.2-5.2); CALCIUM LEVEL 8.5 MG/DL (8.8-10.2); CREATININE FOR GFR 1.3 MG/DL (0.55-1.30); GLOMERULAR FILTRATION RATE 42.6 (>39); MAGNESIUM LEVEL 1.9 MG/DL (1.8-2.4); PHOSPHORUS LEVEL 3.3 MG/DL (2.5-4.9)
== END ==
LOC: M SHH 12:32
PROVIDERS: ATTEND Internal Medicine Gastroenterology
DX: E44.0 Moderate protein-calorie malnutrition (principal); K50.018 Crohn's disease of small intestine with other complication

== ENCOUNTER → 2021-06-21 | Outpatient (REF) | payer MEDICARE ==
[2021-06-21 14:30] LABS: BASO % 0.3 % (0.0-1.0); EOS # 0.1 10^3/uL (0.0-0.5); EOS % 2.1 % (0.0-3.0); HEMATOCRIT 36.8 % (36.0-47.0); HEMOGLOBIN 11.9 g/dl (12.0-15.5); LYMPH # 0.8 10^3/uL (1.5-5.0); LYMPH % 21.1 % (24.0-44.0); MEAN CORPUSCULAR HEMOGLOBIN 31.2 pg (27.0-33.0); MEAN CORPUSCULAR HGB CONC 32.3 g/dl (32.0-36.5); MEAN CORPUSCULAR VOLUME 96.6 fl (80.0-96.0); MONO # 0.3 10^3/uL (0.0-0.8); MONO % 8.5 % (2.0-8.0); NEUTROPHILS # 2.6 10^3/uL (1.5-8.5); NEUTROPHILS % 67.7 % (36.0-66.0); PLATELET COUNT, AUTOMATED 155 10^3/uL (150-450); RED BLOOD COUNT 3.81 10^6/uL (4.00-5.40); WHITE BLOOD COUNT 3.9 10^3/uL (4.0-10.0)
[2021-06-21 16:19] LABS: ALBUMIN 2.7 GM/DL (3.2-5.2); CALCIUM LEVEL 8.8 MG/DL (8.8-10.2); CREATININE FOR GFR 1.28 MG/DL (0.55-1.30); GLOMERULAR FILTRATION RATE 43.4 (>39); MAGNESIUM LEVEL 2.1 MG/DL (1.8-2.4); PHOSPHORUS LEVEL 3.1 MG/DL (2.5-4.9); POTASSIUM SERUM 4.1 MEQ/L (3.5-5.1); PREALBUMIN 24.4 MG/DL (20.0-40.0)
== END ==
LOC: M SHH 13:59
PROVIDERS: ATTEND Internal Medicine Gastroenterology
DX: K50.018 Crohn's disease of small intestine with other complication (principal); E44.0 Moderate protein-calorie malnutrition

== ENCOUNTER → 2021-06-28 | Outpatient (REF) | payer MEDICARE ==
[~2021-06-28] MED LIST changes: -D31000TA2 PO; +VITA100093 PO
[2021-06-28 11:34] LABS: BASO % 0.5 % (0.0-1.0); EOS # 0.1 10^3/uL (0.0-0.5); EOS % 1.9 % (0.0-3.0); HEMATOCRIT 36.8 % (36.0-47.0); HEMOGLOBIN 11.9 g/dl (12.0-15.5); LYMPH # 0.6 10^3/uL (1.5-5.0); LYMPH % 14.9 % (24.0-44.0); MEAN CORPUSCULAR HGB CONC 32.3 g/dl (32.0-36.5); MEAN CORPUSCULAR VOLUME 95.8 fl (80.0-96.0); MONO # 0.3 10^3/uL (0.0-0.8); MONO % 6.4 % (2.0-8.0); NEUTROPHILS # 3.2 10^3/uL (1.5-8.5); NEUTROPHILS % 76.1 % (36.0-66.0); PLATELET COUNT, AUTOMATED 174 10^3/uL (150-450); RED BLOOD COUNT 3.84 10^6/uL (4.00-5.40); WHITE BLOOD COUNT 4.2 10^3/uL (4.0-10.0)
[2021-06-28 12:17] LABS: ALBUMIN 2.8 GM/DL (3.2-5.2); CALCIUM LEVEL 9.1 MG/DL (8.8-10.2); CREATININE FOR GFR 1.19 MG/DL (0.55-1.30); GLOMERULAR FILTRATION RATE 47.2 (>39); MAGNESIUM LEVEL 2.1 MG/DL (1.8-2.4); PHOSPHORUS LEVEL 3.2 MG/DL (2.5-4.9); POTASSIUM SERUM 4.1 MEQ/L (3.5-5.1)
[2021-06-28 12:49] LABS: PREALBUMIN 23.7 MG/DL (20.0-40.0)
== END ==
LOC: M SHH 11:02
PROVIDERS: ATTEND Internal Medicine Gastroenterology
DX: E44.0 Moderate protein-calorie malnutrition (principal); K50.018 Crohn's disease of small intestine with other complication

== ENCOUNTER → 2021-07-05 | Outpatient (REF) | payer MEDICARE ==
[2021-07-05 11:36] LABS: BASO % 0.6 % (0.0-1.0); EOS # 0.1 10^3/uL (0.0-0.5); EOS % 1.7 % (0.0-3.0); HEMATOCRIT 38.7 % (36.0-47.0); HEMOGLOBIN 12.6 g/dl (12.0-15.5); LYMPH # 0.9 10^3/uL (1.5-5.0); LYMPH % 18.1 % (24.0-44.0); MEAN CORPUSCULAR HEMOGLOBIN 30.9 pg (27.0-33.0); MEAN CORPUSCULAR HGB CONC 32.6 g/dl (32.0-36.5); MEAN CORPUSCULAR VOLUME 94.9 fl (80.0-96.0); MONO # 0.4 10^3/uL (0.0-0.8); MONO % 7.5 % (2.0-8.0); NEUTROPHILS # 3.4 10^3/uL (1.5-8.5); NEUTROPHILS % 71.9 % (36.0-66.0); PLATELET COUNT, AUTOMATED 176 10^3/uL (150-450); RED BLOOD COUNT 4.08 10^6/uL (4.00-5.40); WHITE BLOOD COUNT 4.7 10^3/uL (4.0-10.0)
[2021-07-05 12:06] LABS: ALBUMIN 2.7 GM/DL (3.2-5.2); CALCIUM LEVEL 8.8 MG/DL (8.8-10.2); CREATININE FOR GFR 1.22 MG/DL (0.55-1.30); GLOMERULAR FILTRATION RATE 45.9 (>39); MAGNESIUM LEVEL 1.9 MG/DL (1.8-2.4); PHOSPHORUS LEVEL 3.6 MG/DL (2.5-4.9); POTASSIUM SERUM 3.8 MEQ/L (3.5-5.1)
== END ==
LOC: M SHH 11:10
PROVIDERS: ATTEND Internal Medicine Gastroenterology
DX: E44.0 Moderate protein-calorie malnutrition (principal); K50.818 Crohn's disease of both small and large intestine with other complication

== ENCOUNTER → 2021-07-12 | Outpatient (REF) | payer MEDICARE ==
[2021-07-12 12:59] LABS: BASO % 0.6 % (0.0-1.0); EOS # 0.1 10^3/uL (0.0-0.5); EOS % 1.4 % (0.0-3.0); HEMATOCRIT 39.2 % (36.0-47.0); HEMOGLOBIN 12.7 g/dl (12.0-15.5); LYMPH # 0.5 10^3/uL (1.5-5.0); LYMPH % 10.5 % (24.0-44.0); MEAN CORPUSCULAR HEMOGLOBIN 31.4 pg (27.0-33.0); MEAN CORPUSCULAR HGB CONC 32.4 g/dl (32.0-36.5); MEAN CORPUSCULAR VOLUME 96.8 fl (80.0-96.0); MONO # 0.4 10^3/uL (0.0-0.8); MONO % 7.7 % (2.0-8.0); NEUTROPHILS % 79.4 % (36.0-66.0); PLATELET COUNT, AUTOMATED 178 10^3/uL (150-450); RED BLOOD COUNT 4.05 10^6/uL (4.00-5.40); WHITE BLOOD COUNT 5.1 10^3/uL (4.0-10.0)
[2021-07-12 13:49] LABS: ALBUMIN 3.1 GM/DL (3.2-5.2); CALCIUM LEVEL 9.2 MG/DL (8.8-10.2); CREATININE FOR GFR 1.43 MG/DL (0.55-1.30); GLOMERULAR FILTRATION RATE 38.2 (>39); PHOSPHORUS LEVEL 3.9 MG/DL (2.5-4.9); POTASSIUM SERUM 4.2 MEQ/L (3.5-5.1)
== END ==
LOC: M SHH 12:08
PROVIDERS: ATTEND Internal Medicine Gastroenterology
DX: K50.018 Crohn's disease of small intestine with other complication (principal); E44.0 Moderate protein-calorie malnutrition

== ENCOUNTER → 2021-07-19 | Outpatient (REF) | payer MEDICARE ==
[2021-07-19 12:10] LABS: BASO % 0.5 % (0.0-1.0); EOS # 0.1 10^3/uL (0.0-0.5); EOS % 3.3 % (0.0-3.0); HEMATOCRIT 38.9 % (36.0-47.0); HEMOGLOBIN 12.7 g/dl (12.0-15.5); LYMPH # 0.7 10^3/uL (1.5-5.0); LYMPH % 17.6 % (24.0-44.0); MEAN CORPUSCULAR HEMOGLOBIN 31.1 pg (27.0-33.0); MEAN CORPUSCULAR HGB CONC 32.6 g/dl (32.0-36.5); MEAN CORPUSCULAR VOLUME 95.3 fl (80.0-96.0); MONO # 0.3 10^3/uL (0.0-0.8); MONO % 7.8 % (2.0-8.0); NEUTROPHILS # 2.8 10^3/uL (1.5-8.5); NEUTROPHILS % 70.5 % (36.0-66.0); PLATELET COUNT, AUTOMATED 180 10^3/uL (150-450); RED BLOOD COUNT 4.08 10^6/uL (4.00-5.40)
[2021-07-19 12:45] LABS: CALCIUM LEVEL 9.1 MG/DL (8.8-10.2); CREATININE FOR GFR 1.28 MG/DL (0.55-1.30); GLOMERULAR FILTRATION RATE 43.4 (>39); MAGNESIUM LEVEL 2.2 MG/DL (1.8-2.4); PHOSPHORUS LEVEL 3.8 MG/DL (2.5-4.9); POTASSIUM SERUM 4.3 MEQ/L (3.5-5.1); PREALBUMIN 26.8 MG/DL (20.0-40.0)
== END ==
LOC: M SHH 11:38
PROVIDERS: ATTEND Internal Medicine Gastroenterology
DX: E44.0 Moderate protein-calorie malnutrition (principal); K50.018 Crohn's disease of small intestine with other complication

== ENCOUNTER → 2021-07-26 | Outpatient (REF) | payer MEDICARE ==
[2021-07-26 12:29] LABS: BASO % 0.2 % (0.0-1.0); EOS # 0.1 10^3/uL (0.0-0.5); EOS % 1.1 % (0.0-3.0); HEMATOCRIT 38.6 % (36.0-47.0); HEMOGLOBIN 12.7 g/dl (12.0-15.5); LYMPH # 0.6 10^3/uL (1.5-5.0); LYMPH % 13.1 % (24.0-44.0); MEAN CORPUSCULAR HEMOGLOBIN 31.9 pg (27.0-33.0); MEAN CORPUSCULAR HGB CONC 32.9 g/dl (32.0-36.5); MONO # 0.4 10^3/uL (0.0-0.8); MONO % 8.1 % (2.0-8.0); NEUTROPHILS # 3.4 10^3/uL (1.5-8.5); NEUTROPHILS % 77.3 % (36.0-66.0); PLATELET COUNT, AUTOMATED 172 10^3/uL (150-450); RED BLOOD COUNT 3.98 10^6/uL (4.00-5.40); WHITE BLOOD COUNT 4.4 10^3/uL (4.0-10.0)
[2021-07-26 13:01] LABS: CREATININE FOR GFR 1.29 MG/DL (0.55-1.30); PHOSPHORUS LEVEL 3.5 MG/DL (2.5-4.9); POTASSIUM SERUM 4.2 MEQ/L (3.5-5.1); PREALBUMIN 27.2 MG/DL (20.0-40.0)
== END ==
LOC: M SHH 11:57
PROVIDERS: ATTEND Internal Medicine Gastroenterology
DX: E44.0 Moderate protein-calorie malnutrition (principal); K50.018 Crohn's disease of small intestine with other complication

== ENCOUNTER → 2021-08-02 | Outpatient (REF) | payer MEDICARE ==
[2021-08-02 10:46] LABS: BASO % 0.5 % (0.0-1.0); EOS # 0.1 10^3/uL (0.0-0.5); EOS % 2.7 % (0.0-3.0); HEMATOCRIT 36.6 % (36.0-47.0); LYMPH # 0.6 10^3/uL (1.5-5.0); MEAN CORPUSCULAR HEMOGLOBIN 31.7 pg (27.0-33.0); MEAN CORPUSCULAR HGB CONC 32.8 g/dl (32.0-36.5); MEAN CORPUSCULAR VOLUME 96.8 fl (80.0-96.0); MONO # 0.4 10^3/uL (0.0-0.8); MONO % 9.7 % (2.0-8.0); NEUTROPHILS # 2.6 10^3/uL (1.5-8.5); NEUTROPHILS % 69.8 % (36.0-66.0); PLATELET COUNT, AUTOMATED 140 10^3/uL (150-450); RED BLOOD COUNT 3.78 10^6/uL (4.00-5.40); WHITE BLOOD COUNT 3.7 10^3/uL (4.0-10.0)
[2021-08-02 11:25] LABS: ALBUMIN 2.8 GM/DL (3.2-5.2); CALCIUM LEVEL 9.1 MG/DL (8.8-10.2); CREATININE FOR GFR 1.21 MG/DL (0.55-1.30); GLOMERULAR FILTRATION RATE 46.3 (>39); MAGNESIUM LEVEL 2.1 MG/DL (1.8-2.4); PHOSPHORUS LEVEL 3.3 MG/DL (2.5-4.9); POTASSIUM SERUM 4.2 MEQ/L (3.5-5.1); PREALBUMIN 22.9 MG/DL (20.0-40.0)
== END ==
LOC: M SHH 10:31
PROVIDERS: ATTEND Internal Medicine Gastroenterology
DX: E44.0 Moderate protein-calorie malnutrition (principal); K50.018 Crohn's disease of small intestine with other complication

== ENCOUNTER → 2021-08-09 | Outpatient (REF) | payer MEDICARE ==
[2021-08-09 12:33] LABS: BASO % 0.4 % (0.0-1.0); EOS # 0.1 10^3/uL (0.0-0.5); EOS % 2.6 % (0.0-3.0); HEMATOCRIT 38.9 % (36.0-47.0); LYMPH # 0.7 10^3/uL (1.5-5.0); LYMPH % 13.9 % (24.0-44.0); MEAN CORPUSCULAR HEMOGLOBIN 32.1 pg (27.0-33.0); MEAN CORPUSCULAR HGB CONC 33.4 g/dl (32.0-36.5); MONO # 0.3 10^3/uL (0.0-0.8); MONO % 6.9 % (2.0-8.0); NEUTROPHILS # 3.5 10^3/uL (1.5-8.5); PLATELET COUNT, AUTOMATED 179 10^3/uL (150-450); RED BLOOD COUNT 4.05 10^6/uL (4.00-5.40); WHITE BLOOD COUNT 4.7 10^3/uL (4.0-10.0)
[2021-08-09 13:01] LABS: ALBUMIN 2.8 GM/DL (3.2-5.2); CALCIUM LEVEL 8.7 MG/DL (8.8-10.2); CREATININE FOR GFR 1.2 MG/DL (0.55-1.30); GLOMERULAR FILTRATION RATE 46.8 (>39); MAGNESIUM LEVEL 1.9 MG/DL (1.8-2.4); PHOSPHORUS LEVEL 3.4 MG/DL (2.5-4.9); POTASSIUM SERUM 4.2 MEQ/L (3.5-5.1); PREALBUMIN 22.2 MG/DL (20.0-40.0)
== END ==
LOC: M SHH 12:04 → M LAB REF 12:04
PROVIDERS: ATTEND Internal Medicine Gastroenterology
DX: E44.0 Moderate protein-calorie malnutrition (principal); K50.018 Crohn's disease of small intestine with other complication

== ENCOUNTER → 2021-08-16 | Outpatient (CLI) | payer MEDICARE ==
[~2021-08-16] MED LIST changes: +LIDOCAINE 1% MDV 20ML VIAL As Ordered ONE
[2021-08-16 13:12] VITALS: BP 140/75
== END ==
LOC: M IRPRO 11:51
PROVIDERS: ATTEND Internal Medicine Gastroenterology
DX: K50.018 Crohn's disease of small intestine with other complication (principal); E44.0 Moderate protein-calorie malnutrition
CPT/HCPCS: 36571; 77001; 80048; 82040; 83735; 84100; 84134; 85025; C1725; C1751; J1642; J1644

== ENCOUNTER → 2021-08-16 | Outpatient (REF) | payer MEDICARE ==
[~2021-08-16] MED LIST changes: -LIDOCAINE 1% MDV 20ML VIAL As Ordered ONE
[2021-08-16 12:10] LABS: BASO % 0.3 % (0.0-1.0); EOS # 0.1 10^3/uL (0.0-0.5); EOS % 2.7 % (0.0-3.0); HEMATOCRIT 38.3 % (36.0-47.0); HEMOGLOBIN 12.4 g/dl (12.0-15.5); LYMPH # 0.7 10^3/uL (1.5-5.0); LYMPH % 17.9 % (24.0-44.0); MEAN CORPUSCULAR HEMOGLOBIN 31.6 pg (27.0-33.0); MEAN CORPUSCULAR HGB CONC 32.4 g/dl (32.0-36.5); MEAN CORPUSCULAR VOLUME 97.7 fl (80.0-96.0); MONO # 0.4 10^3/uL (0.0-0.8); MONO % 9.9 % (2.0-8.0); NEUTROPHILS # 2.6 10^3/uL (1.5-8.5); NEUTROPHILS % 69.2 % (36.0-66.0); PLATELET COUNT, AUTOMATED 161 10^3/uL (150-450); RED BLOOD COUNT 3.92 10^6/uL (4.00-5.40); WHITE BLOOD COUNT 3.8 10^3/uL (4.0-10.0)
[2021-08-16 13:05] LABS: ALBUMIN 2.8 GM/DL (3.2-5.2); CALCIUM LEVEL 8.9 MG/DL (8.8-10.2); CREATININE FOR GFR 1.24 MG/DL (0.55-1.30); MAGNESIUM LEVEL 2.2 MG/DL (1.8-2.4); PHOSPHORUS LEVEL 3.2 MG/DL (2.5-4.9); POTASSIUM SERUM 4.5 MEQ/L (3.5-5.1); PREALBUMIN 25.8 MG/DL (20.0-40.0)
== END ==
LOC: M SHH 11:51
PROVIDERS: ATTEND Internal Medicine Gastroenterology
DX: E44.0 Moderate protein-calorie malnutrition (principal); K50.018 Crohn's disease of small intestine with other complication

== ENCOUNTER → 2021-08-23 | Outpatient (REF) | payer MEDICARE ==
[2021-08-23 14:28] LABS: BASO % 0.5 % (0.0-1.0); EOS # 0.1 10^3/uL (0.0-0.5); EOS % 3.4 % (0.0-3.0); HEMATOCRIT 38.5 % (36.0-47.0); HEMOGLOBIN 12.6 g/dl (12.0-15.5); LYMPH % 25.2 % (24.0-44.0); MEAN CORPUSCULAR HEMOGLOBIN 32.1 pg (27.0-33.0); MEAN CORPUSCULAR HGB CONC 32.7 g/dl (32.0-36.5); MEAN CORPUSCULAR VOLUME 98.2 fl (80.0-96.0); MONO # 0.3 10^3/uL (0.0-0.8); MONO % 8.5 % (2.0-8.0); NEUTROPHILS # 2.3 10^3/uL (1.5-8.5); NEUTROPHILS % 62.1 % (36.0-66.0); PLATELET COUNT, AUTOMATED 173 10^3/uL (150-450); RED BLOOD COUNT 3.92 10^6/uL (4.00-5.40); WHITE BLOOD COUNT 3.8 10^3/uL (4.0-10.0)
[2021-08-23 15:10] LABS: ALBUMIN 2.9 GM/DL (3.2-5.2); CALCIUM LEVEL 8.9 MG/DL (8.8-10.2); CREATININE FOR GFR 1.32 MG/DL (0.55-1.30); GLOMERULAR FILTRATION RATE 41.9 (>39); MAGNESIUM LEVEL 2.1 MG/DL (1.8-2.4); PHOSPHORUS LEVEL 3.3 MG/DL (2.5-4.9); PREALBUMIN 23.5 MG/DL (20.0-40.0)
== END ==
LOC: M SHH 13:15
PROVIDERS: ATTEND Internal Medicine Gastroenterology
DX: E44.0 Moderate protein-calorie malnutrition (principal); K50.018 Crohn's disease of small intestine with other complication

== ENCOUNTER → 2021-08-30 | Outpatient (REF) | payer MEDICARE ==
[2021-08-30 12:11] LABS: BASO % 0.5 % (0.0-1.0); EOS # 0.1 10^3/uL (0.0-0.5); EOS % 2.2 % (0.0-3.0); HEMOGLOBIN 12.4 g/dl (12.0-15.5); LYMPH # 0.6 10^3/uL (1.5-5.0); LYMPH % 13.4 % (24.0-44.0); MEAN CORPUSCULAR HEMOGLOBIN 31.6 pg (27.0-33.0); MEAN CORPUSCULAR HGB CONC 32.6 g/dl (32.0-36.5); MEAN CORPUSCULAR VOLUME 96.7 fl (80.0-96.0); MONO # 0.3 10^3/uL (0.0-0.8); MONO % 7.1 % (2.0-8.0); NEUTROPHILS # 3.1 10^3/uL (1.5-8.5); NEUTROPHILS % 76.8 % (36.0-66.0); PLATELET COUNT, AUTOMATED 168 10^3/uL (150-450); RED BLOOD COUNT 3.93 10^6/uL (4.00-5.40); WHITE BLOOD COUNT 4.1 10^3/uL (4.0-10.0)
[2021-08-30 12:48] LABS: CALCIUM LEVEL 8.9 MG/DL (8.8-10.2); CREATININE FOR GFR 1.37 MG/DL (0.55-1.30); GLOMERULAR FILTRATION RATE 40.1 (>39); MAGNESIUM LEVEL 2.2 MG/DL (1.8-2.4); POTASSIUM SERUM 4.4 MEQ/L (3.5-5.1); PREALBUMIN 20.8 MG/DL (20.0-40.0)
== END ==
LOC: M SHH 11:24
PROVIDERS: ATTEND Internal Medicine Gastroenterology
DX: E44.0 Moderate protein-calorie malnutrition (principal); K50.018 Crohn's disease of small intestine with other complication

== ENCOUNTER → 2021-09-06 | Outpatient (REF) | payer MEDICARE ==
[2021-09-06 13:04] LABS: BASO % 0.5 % (0.0-1.0); EOS # 0.1 10^3/uL (0.0-0.5); EOS % 3.1 % (0.0-3.0); HEMATOCRIT 37.9 % (36.0-47.0); HEMOGLOBIN 12.3 g/dl (12.0-15.5); LYMPH # 0.6 10^3/uL (1.5-5.0); LYMPH % 14.2 % (24.0-44.0); MEAN CORPUSCULAR HEMOGLOBIN 31.9 pg (27.0-33.0); MEAN CORPUSCULAR HGB CONC 32.5 g/dl (32.0-36.5); MEAN CORPUSCULAR VOLUME 98.4 fl (80.0-96.0); MONO # 0.3 10^3/uL (0.0-0.8); NEUTROPHILS # 2.9 10^3/uL (1.5-8.5); NEUTROPHILS % 74.9 % (36.0-66.0); PLATELET COUNT, AUTOMATED 168 10^3/uL (150-450); RED BLOOD COUNT 3.85 10^6/uL (4.00-5.40); WHITE BLOOD COUNT 3.9 10^3/uL (4.0-10.0)
[2021-09-06 13:26] LABS: ALBUMIN 2.8 GM/DL (3.2-5.2); CALCIUM LEVEL 8.8 MG/DL (8.8-10.2); CREATININE FOR GFR 1.31 MG/DL (0.55-1.30); GLOMERULAR FILTRATION RATE 42.3 (>39); MAGNESIUM LEVEL 2.2 MG/DL (1.8-2.4); PHOSPHORUS LEVEL 3.7 MG/DL (2.5-4.9); POTASSIUM SERUM 4.4 MEQ/L (3.5-5.1); PREALBUMIN 25.4 MG/DL (20.0-40.0)
== END ==
LOC: M SHH 12:29
PROVIDERS: ATTEND Internal Medicine Gastroenterology
DX: E44.0 Moderate protein-calorie malnutrition (principal); K50.018 Crohn's disease of small intestine with other complication

== ENCOUNTER → 2021-09-13 | Outpatient (REF) | payer MEDICARE ==
[2021-09-13 13:05] LABS: BASO % 0.7 % (0.0-1.0); EOS # 0.2 10^3/uL (0.0-0.5); HEMATOCRIT 39.2 % (36.0-47.0); HEMOGLOBIN 12.4 g/dl (12.0-15.5); LYMPH # 0.7 10^3/uL (1.5-5.0); LYMPH % 16.2 % (24.0-44.0); MEAN CORPUSCULAR HEMOGLOBIN 30.8 pg (27.0-33.0); MEAN CORPUSCULAR HGB CONC 31.6 g/dl (32.0-36.5); MEAN CORPUSCULAR VOLUME 97.3 fl (80.0-96.0); MONO # 0.4 10^3/uL (0.0-0.8); NEUTROPHILS # 2.8 10^3/uL (1.5-8.5); NEUTROPHILS % 68.9 % (36.0-66.0); PLATELET COUNT, AUTOMATED 174 10^3/uL (150-450); RED BLOOD COUNT 4.03 10^6/uL (4.00-5.40)
[2021-09-13 13:44] LABS: ALBUMIN 2.8 GM/DL (3.2-5.2); CALCIUM LEVEL 8.5 MG/DL (8.8-10.2); CREATININE FOR GFR 1.28 MG/DL (0.55-1.30); GLOMERULAR FILTRATION RATE 43.4 (>39); MAGNESIUM LEVEL 2.2 MG/DL (1.8-2.4); PHOSPHORUS LEVEL 3.6 MG/DL (2.5-4.9); POTASSIUM SERUM 4.1 MEQ/L (3.5-5.1); PREALBUMIN 22.5 MG/DL (20.0-40.0)
== END ==
LOC: M SHH 12:16
PROVIDERS: ATTEND Internal Medicine Gastroenterology
DX: E44.0 Moderate protein-calorie malnutrition (principal); K50.018 Crohn's disease of small intestine with other complication

== ENCOUNTER → 2021-09-21 | Outpatient (REF) | payer MEDICARE ==
[2021-09-21 14:28] LABS: BASO % 0.4 % (0.0-1.0); EOS # 0.1 10^3/uL (0.0-0.5); EOS % 2.1 % (0.0-3.0); HEMATOCRIT 38.8 % (36.0-47.0); HEMOGLOBIN 12.3 g/dl (12.0-15.5); LYMPH # 0.5 10^3/uL (1.5-5.0); LYMPH % 10.6 % (24.0-44.0); MEAN CORPUSCULAR HEMOGLOBIN 31.2 pg (27.0-33.0); MEAN CORPUSCULAR HGB CONC 31.7 g/dl (32.0-36.5); MEAN CORPUSCULAR VOLUME 98.5 fl (80.0-96.0); MONO # 0.3 10^3/uL (0.0-0.8); MONO % 6.9 % (2.0-8.0); NEUTROPHILS # 3.8 10^3/uL (1.5-8.5); NEUTROPHILS % 79.6 % (36.0-66.0); PLATELET COUNT, AUTOMATED 175 10^3/uL (150-450); RED BLOOD COUNT 3.94 10^6/uL (4.00-5.40); WHITE BLOOD COUNT 4.8 10^3/uL (4.0-10.0)
[2021-09-21 15:06] LABS: CREATININE FOR GFR 1.2 MG/DL (0.55-1.30); GLOMERULAR FILTRATION RATE 46.8 (>39); MAGNESIUM LEVEL 2.2 MG/DL (1.8-2.4); PHOSPHORUS LEVEL 3.2 MG/DL (2.5-4.9); POTASSIUM SERUM 4.3 MEQ/L (3.5-5.1); PREALBUMIN 24.9 MG/DL (20.0-40.0)
== END ==
LOC: M SHH 14:00
PROVIDERS: ATTEND Internal Medicine Gastroenterology
DX: E44.0 Moderate protein-calorie malnutrition (principal); K50.018 Crohn's disease of small intestine with other complication

== ENCOUNTER → 2021-09-27 | Outpatient (REF) | payer MEDICARE ==
[2021-09-27 14:47] LABS: BASO % 0.6 % (0.0-1.0); EOS # 0.1 10^3/uL (0.0-0.5); EOS % 2.9 % (0.0-3.0); HEMATOCRIT 37.5 % (36.0-47.0); HEMOGLOBIN 12.4 g/dl (12.0-15.5); LYMPH # 0.6 10^3/uL (1.5-5.0); LYMPH % 15.8 % (24.0-44.0); MEAN CORPUSCULAR HEMOGLOBIN 32.1 pg (27.0-33.0); MEAN CORPUSCULAR HGB CONC 33.1 g/dl (32.0-36.5); MEAN CORPUSCULAR VOLUME 97.2 fl (80.0-96.0); MONO # 0.3 10^3/uL (0.0-0.8); NEUTROPHILS # 2.5 10^3/uL (1.5-8.5); NEUTROPHILS % 72.4 % (36.0-66.0); PLATELET COUNT, AUTOMATED 161 10^3/uL (150-450); RED BLOOD COUNT 3.86 10^6/uL (4.00-5.40); WHITE BLOOD COUNT 3.5 10^3/uL (4.0-10.0)
[2021-09-27 15:19] LABS: ALBUMIN 2.9 GM/DL (3.2-5.2); CALCIUM LEVEL 8.6 MG/DL (8.8-10.2); CREATININE FOR GFR 1.34 MG/DL (0.55-1.30); GLOMERULAR FILTRATION RATE 41.2 (>39); MAGNESIUM LEVEL 2.5 MG/DL (1.8-2.4); PHOSPHORUS LEVEL 3.4 MG/DL (2.5-4.9)
== END ==
LOC: M SHH 13:50
PROVIDERS: ATTEND Internal Medicine Gastroenterology
DX: E44.0 Moderate protein-calorie malnutrition (principal); K50.018 Crohn's disease of small intestine with other complication

== ENCOUNTER 2021-09-30 08:28 | Outpatient (CLI) | payer MEDICARE ==
[2021-09-30] MEDS ORDERED: VEDOLIZUMAB 300 MG in NS 250 ML IV ONE (08:30)
[2021-09-30] MEDS ORDERED: SODIUM CHLORIDE 0.9% INJ 10 ML SYR IV PRN (08:30)
[2021-09-30 08:41] VITALS: BP 162/77
[2021-09-30 09:57] VITALS: BP 150/67
[2021-09-30] MEDS ORDERED: SODIUM CHLORIDE 0.9% INJ 10 ML SYR IV SCH (18:00)
== END 2021-09-30 10:00 | disposition home or self-care (01) ==
LOC: M INFU 08:28
PROVIDERS: ATTEND Internal Medicine Gastroenterology
DX: K50.90 Crohn's disease, unspecified, without complications (principal); Z88.2 Allergy status to sulfonamides; Z88.8 Allergy status to other drugs, medicaments and biological substances
CPT/HCPCS: 96365; J1642

== ENCOUNTER → 2021-10-04 | Outpatient (REF) | payer MEDICARE ==
[2021-10-04 16:30] LABS: BASO % 0.5 % (0.0-1.0); EOS # 0.1 10^3/uL (0.0-0.5); EOS % 3.2 % (0.0-3.0); HEMATOCRIT 37.9 % (36.0-47.0); HEMOGLOBIN 12.1 g/dl (12.0-15.5); LYMPH # 0.5 10^3/uL (1.5-5.0); LYMPH % 12.9 % (24.0-44.0); MEAN CORPUSCULAR HGB CONC 31.9 g/dl (32.0-36.5); MEAN CORPUSCULAR VOLUME 97.2 fl (80.0-96.0); MONO # 0.3 10^3/uL (0.0-0.8); MONO % 8.6 % (2.0-8.0); NEUTROPHILS # 2.8 10^3/uL (1.5-8.5); NEUTROPHILS % 74.3 % (36.0-66.0); PLATELET COUNT, AUTOMATED 158 10^3/uL (150-450); WHITE BLOOD COUNT 3.7 10^3/uL (4.0-10.0)
[2021-10-04 17:01] LABS: ALBUMIN 2.8 GM/DL (3.2-5.2); CALCIUM LEVEL 8.4 MG/DL (8.8-10.2); CREATININE FOR GFR 1.2 MG/DL (0.55-1.30); GLOMERULAR FILTRATION RATE 46.8 (>39); MAGNESIUM LEVEL 1.9 MG/DL (1.8-2.4); PHOSPHORUS LEVEL 3.4 MG/DL (2.5-4.9); POTASSIUM SERUM 3.4 MEQ/L (3.5-5.1); PREALBUMIN 22.7 MG/DL (20.0-40.0)
== END ==
LOC: M SHH 14:25
PROVIDERS: ATTEND Internal Medicine Gastroenterology
DX: E44.0 Moderate protein-calorie malnutrition (principal); K50.018 Crohn's disease of small intestine with other complication

== ENCOUNTER → 2021-10-11 | Outpatient (REF) | payer MEDICARE ==
[2021-10-11 17:27] LABS: CALCIUM LEVEL 9.2 MG/DL (8.8-10.2); CREATININE FOR GFR 1.19 MG/DL (0.55-1.30); GLOMERULAR FILTRATION RATE 47.2 (>39); PHOSPHORUS LEVEL 3.8 MG/DL (2.5-4.9); POTASSIUM SERUM 3.9 MEQ/L (3.5-5.1)
[2021-10-11 17:28] LABS: MAGNESIUM LEVEL 2.3 MG/DL (1.8-2.4); PREALBUMIN 24.7 MG/DL (20.0-40.0)
[2021-10-11 18:05] LABS: BASO % 0.5 % (0.0-1.0); EOS # 0.1 10^3/uL (0.0-0.5); EOS % 2.1 % (0.0-3.0); HEMATOCRIT 39.4 % (36.0-47.0); HEMOGLOBIN 12.8 g/dl (12.0-15.5); LYMPH # 0.6 10^3/uL (1.5-5.0); LYMPH % 13.2 % (24.0-44.0); MEAN CORPUSCULAR HEMOGLOBIN 31.3 pg (27.0-33.0); MEAN CORPUSCULAR HGB CONC 32.5 g/dl (32.0-36.5); MEAN CORPUSCULAR VOLUME 96.3 fl (80.0-96.0); MONO # 0.3 10^3/uL (0.0-0.8); MONO % 6.1 % (2.0-8.0); NEUTROPHILS # 3.3 10^3/uL (1.5-8.5); NEUTROPHILS % 77.9 % (36.0-66.0); PLATELET COUNT, AUTOMATED 172 10^3/uL (150-450); RED BLOOD COUNT 4.09 10^6/uL (4.00-5.40); WHITE BLOOD COUNT 4.3 10^3/uL (4.0-10.0)
== END ==
LOC: M SHH 15:18
PROVIDERS: ATTEND Internal Medicine Gastroenterology
DX: E44.0 Moderate protein-calorie malnutrition (principal); K50.018 Crohn's disease of small intestine with other complication; N25.81 Secondary hyperparathyroidism of renal origin; N18.31 Chronic kidney disease, stage 3a

== ENCOUNTER → 2021-10-11 | Outpatient (REF) | payer MEDICARE ==
[2021-10-11 16:16] LABS: HEMATOCRIT 39.3 % (36.0-47.0); HEMOGLOBIN 12.6 g/dl (12.0-15.5); MEAN CORPUSCULAR HGB CONC 32.1 g/dl (32.0-36.5); MEAN CORPUSCULAR VOLUME 96.6 fl (80.0-96.0); PLATELET COUNT, AUTOMATED 178 10^3/uL (150-450); RED BLOOD COUNT 4.07 10^6/uL (4.00-5.40); WHITE BLOOD COUNT 4.3 10^3/uL (4.0-10.0)
[2021-10-11 16:39] LABS: CALCIUM LEVEL 8.9 MG/DL (8.8-10.2); CREATININE FOR GFR 1.23 MG/DL (0.55-1.30); GLOMERULAR FILTRATION RATE 45.4 (>39); PHOSPHORUS LEVEL 3.8 MG/DL (2.5-4.9); POTASSIUM SERUM 3.9 MEQ/L (3.5-5.1)
[2021-10-11 16:43] LABS: TOTAL 25(OH) VITAMIN D 29.6 NG/ML (30.0-100.0)
[2021-10-11 16:44] LABS: PTH INTACT 123.2 PG/ML (18.5-88.0)
== END ==
LOC: M SHH 15:24
PROVIDERS: ATTEND Internal Medicine Nephrology
DX: N25.81 Secondary hyperparathyroidism of renal origin (principal); N18.31 Chronic kidney disease, stage 3a

== ENCOUNTER → 2021-10-18 | Outpatient (REF) | payer MEDICARE ==
[2021-10-18 14:53] LABS: BASO % 0.8 % (0.0-1.0); EOS # 0.1 10^3/uL (0.0-0.5); HEMOGLOBIN 12.2 g/dl (12.0-15.5); LYMPH # 0.7 10^3/uL (1.5-5.0); LYMPH % 18.5 % (24.0-44.0); MEAN CORPUSCULAR HGB CONC 32.1 g/dl (32.0-36.5); MEAN CORPUSCULAR VOLUME 96.7 fl (80.0-96.0); MONO # 0.3 10^3/uL (0.0-0.8); MONO % 8.6 % (2.0-8.0); NEUTROPHILS # 2.6 10^3/uL (1.5-8.5); NEUTROPHILS % 69.1 % (36.0-66.0); PLATELET COUNT, AUTOMATED 167 10^3/uL (150-450); RED BLOOD COUNT 3.93 10^6/uL (4.00-5.40); WHITE BLOOD COUNT 3.7 10^3/uL (4.0-10.0)
[2021-10-18 16:14] LABS: ALBUMIN 2.9 GM/DL (3.2-5.2); CALCIUM LEVEL 8.5 MG/DL (8.8-10.2); CREATININE FOR GFR 1.26 MG/DL (0.55-1.30); GLOMERULAR FILTRATION RATE 44.2 (>39); PHOSPHORUS LEVEL 3.5 MG/DL (2.5-4.9); POTASSIUM SERUM 3.5 MEQ/L (3.5-5.1); PREALBUMIN 23.2 MG/DL (20.0-40.0)
== END ==
LOC: M SHH 14:38
PROVIDERS: ATTEND Internal Medicine Gastroenterology
DX: E44.0 Moderate protein-calorie malnutrition (principal); K50.018 Crohn's disease of small intestine with other complication

== ENCOUNTER → 2021-10-26 | Outpatient (REF) | payer MEDICARE ==
[2021-10-28 13:57] LABS: CREATININE FOR GFR 1.27 MG/DL (0.55-1.30); GLOMERULAR FILTRATION RATE 43.8 (>39); HEMATOCRIT 38.6 % (36.0-47.0); HEMOGLOBIN 12.8 g/dl (12.0-15.5); MEAN CORPUSCULAR HEMOGLOBIN 31.1 pg (27.0-33.0); MEAN CORPUSCULAR HGB CONC 33.2 g/dl (32.0-36.5); MEAN CORPUSCULAR VOLUME 93.7 fl (80.0-96.0); PLATELET COUNT, AUTOMATED 165 10^3/uL (150-450); POTASSIUM SERUM 4.1 MEQ/L (3.5-5.1); RED BLOOD COUNT 4.12 10^6/uL (4.00-5.40); WHITE BLOOD COUNT 4.1 10^3/uL (4.0-10.0)
[2021-10-28 13:58] LABS: ALBUMIN 3.1 GM/DL (3.2-5.2); PREALBUMIN 27.1 MG/DL (20.0-40.0)
== END ==
LOC: M SHH 13:52
PROVIDERS: ATTEND Internal Medicine Gastroenterology
DX: K50.018 Crohn's disease of small intestine with other complication (principal); E44.0 Moderate protein-calorie malnutrition

== ENCOUNTER → 2021-11-01 | Outpatient (REF) | payer MEDICARE ==
[2021-11-01 14:25] LABS: HEMATOCRIT 38.6 % (36.0-47.0); HEMOGLOBIN 12.7 g/dl (12.0-15.5); MEAN CORPUSCULAR HEMOGLOBIN 32.3 pg (27.0-33.0); MEAN CORPUSCULAR HGB CONC 32.9 g/dl (32.0-36.5); MEAN CORPUSCULAR VOLUME 98.2 fl (80.0-96.0); PLATELET COUNT, AUTOMATED 156 10^3/uL (150-450); RED BLOOD COUNT 3.93 10^6/uL (4.00-5.40); WHITE BLOOD COUNT 5.2 10^3/uL (4.0-10.0)
[2021-11-01 18:39] LABS: CREATININE FOR GFR 1.25 MG/DL (0.55-1.30); GLOMERULAR FILTRATION RATE 44.6 (>39); POTASSIUM SERUM 3.7 MEQ/L (3.5-5.1); PREALBUMIN 24.9 MG/DL (20.0-40.0)
== END ==
LOC: M SHH 13:49
PROVIDERS: ATTEND Internal Medicine Gastroenterology
DX: K50.018 Crohn's disease of small intestine with other complication (principal); E44.0 Moderate protein-calorie malnutrition

== ENCOUNTER → 2021-11-08 | Outpatient (REF) | payer MEDICARE ==
[2021-11-08 14:14] LABS: APPEARANCE, URINE CLOUDY (CLEAR); BACTERIA, URINE AUTO 1+ (NEGATIVE); BILIRUBIN, URINE AUTO NEGATIVE (NEGATIVE); BLOOD, URINE BLOOD 3+ (NEGATIVE); COLOR, URINE AMBER (YELLOW); GLUCOSE, URINE (UA) AUTO NEGATIVE (NEGATIVE); KETONE, URINE AUTO NEGATIVE (NEGATIVE); LEUKOCYTE ESTERASE, URINE AUTO 3+ (NEGATIVE); MUCUS, URINE SMALL (NEGATIVE); NITRITE, URINE AUTO NEGATIVE (NEGATIVE); PROTEIN, URINE AUTO 2+ mg/dL (NEGATIVE); RBC, URINE AUTO 117 /HPF (0-3); RENAL EPITHELIAL CELLS 3 /HPF; SPECIFIC GRAVITY URINE AUTO 1.009 (1.002-1.035); SQUAMOUS EPITHELIAL CELL UR AU 1 /HPF (0-6); UROBILINOGEN, URINE AUTO 0.2 mg/dL (0.0-2.0); WBC, URINE AUTO TNTC /HPF (0-3)
== END ==
LOC: M SFHCADAM 10:46
PROVIDERS: ATTEND Family Medicine
DX: R35.0 Frequency of micturition (principal)

== ENCOUNTER → 2021-11-08 | Outpatient (REF) | payer MEDICARE ==
[2021-11-08 12:24] LABS: HEMATOCRIT 35.4 % (36.0-47.0); HEMOGLOBIN 11.7 g/dl (12.0-15.5); MEAN CORPUSCULAR HEMOGLOBIN 31.1 pg (27.0-33.0); MEAN CORPUSCULAR HGB CONC 33.1 g/dl (32.0-36.5); MEAN CORPUSCULAR VOLUME 94.1 fl (80.0-96.0); RED BLOOD COUNT 3.76 10^6/uL (4.00-5.40); WHITE BLOOD COUNT 4.5 10^3/uL (4.0-10.0)
[2021-11-08 12:49] LABS: ALBUMIN 2.4 GM/DL (3.2-5.2); CALCIUM LEVEL 8.3 MG/DL (8.8-10.2); CREATININE FOR GFR 1.42 MG/DL (0.55-1.30); GLOMERULAR FILTRATION RATE 38.5 (>39); PHOSPHORUS LEVEL 2.4 MG/DL (2.5-4.9); POTASSIUM SERUM 3.6 MEQ/L (3.5-5.1); PREALBUMIN 13.5 MG/DL (20.0-40.0)
[2021-11-08 13:46] LABS: PLATELET COUNT, AUTOMATED 88 10^3/uL (150-450)
[2021-11-08 13:51] LABS: ATYPICAL LYMPH 1 % (0-5); BASOPHILS 1 % (0-1); EOSINOPHILS 3 % (0-3); LYMPHOCYTES 5 % (16-44); MONOCYTES 7 % (0-5); NEUTROPHILS 83 % (28-66)
[2021-11-08 13:52] LABS: PLATELET ESTIMATE DECREASED (NORMAL)
[2021-11-08 13:53] LABS: ANISOCYTOSIS 1+
== END ==
LOC: M SHH 11:55
PROVIDERS: ATTEND Internal Medicine Gastroenterology
DX: E44.0 Moderate protein-calorie malnutrition (principal); K63.2 Fistula of intestine; R35.0 Frequency of micturition; Z93.2 Ileostomy status

== ENCOUNTER 2021-11-12 17:33 | Emergency (ER) | payer MEDICARE ==
[~2021-11-12] VITALS: Ht 154.9 cm; Wt 53.0 kg
[2021-11-12 17:36] VITALS: BP 130/90
== END 2021-11-12 21:40 | disposition left against medical advice (07) ==
LOC: M ED 17:33
DX: Z53.21 Procedure and treatment not carried out due to patient leaving prior to being seen by health care provider (principal)

== ENCOUNTER 2021-11-15 15:56 | Emergency (ER) | payer MEDICARE ==
[~2021-11-15] VITALS: Ht 154.9 cm; Wt 54.1 kg
[~2021-11-15 15:56] MED LIST changes: -LEVO750T13 PO
[2021-11-15 19:06] LABS: BASO % 0.1 % (0.0-1.0); EOS % 0.1 % (0.0-3.0); HEMATOCRIT 33.8 % (36.0-47.0); HEMOGLOBIN 11.5 g/dl (12.0-15.5); LYMPH # 0.6 10^3/uL (1.5-5.0); LYMPH % 4.5 % (24.0-44.0); MEAN CORPUSCULAR HEMOGLOBIN 31.2 pg (27.0-33.0); MEAN CORPUSCULAR VOLUME 91.6 fl (80.0-96.0); MONO # 0.7 10^3/uL (0.0-0.8); MONO % 5.1 % (2.0-8.0); NEUTROPHILS # 12.7 10^3/uL (1.5-8.5); NEUTROPHILS % 89.6 % (36.0-66.0); PLATELET COUNT, AUTOMATED 180 10^3/uL (150-450); RED BLOOD COUNT 3.69 10^6/uL (4.00-5.40); WHITE BLOOD COUNT 14.2 10^3/uL (4.0-10.0)
[2021-11-15 20:30] LABS: BLOOD UREA NITROGEN 34 MG/DL (7-18); GLUCOSE, FASTING 90 MG/DL (70-100)
[2021-11-15 20:31] LABS: ALT/SGPT 16 IU/L (0-32); BILIRUBIN,TOTAL 1.5 MG/DL (0.2-1.0); CALCIUM LEVEL 8.2 MG/DL (8.8-10.2); CARBON DIOXIDE LEVEL 24 mmol/L (20-29); CHLORIDE LEVEL 110 MEQ/L (98-107); CREATININE FOR GFR 1.71 MG/DL (0.55-1.30); GLOMERULAR FILTRATION RATE 31.1 (>39); POTASSIUM SERUM 3.9 MEQ/L (3.5-5.1); SODIUM LEVEL 144 MEQ/L (136-145)
[2021-11-15 20:32] LABS: ALBUMIN 2.2 GM/DL (3.2-5.2); BILIRUBIN,DIRECT 0.8 MG/DL (0.0-0.2); ETHYL ALCOHOL (ETHANOL) < 0.003 % (0.000-0.010); TOTAL PROTEIN 6.1 GM/DL (6.4-8.2)
[2021-11-15] MEDS ORDERED: FOSFOMYCIN TROMETHAMINE 3 GM POWDER PACKET (MONUROL) PO ONE (23:30)
[2021-11-15] MEDS ORDERED: NS 500 ML IV ONE (23:55)
[2021-11-16 01:53] VITALS: BP 144/67
[2021-11-17] MEDS ORDERED: LEVO750T13 PO (17:35)
== END 2021-11-16 01:55 | disposition home or self-care (01) ==
LOC: M ED 15:56
DX: N39.0 Urinary tract infection, site not specified (principal); E86.0 Dehydration; R31.9 Hematuria, unspecified; M54.9 Dorsalgia, unspecified; D50.9 Iron deficiency anemia, unspecified; I10 Essential (primary) hypertension; K50.919 Crohn's disease, unspecified, with unspecified complications; M43.16 Spondylolisthesis, lumbar region; M48.07 Spinal stenosis, lumbosacral region; M48.061 Spinal stenosis, lumbar region without neurogenic claudication; Z79.899 Other long term (current) drug therapy; Z88.2 Allergy status to sulfonamides; Z88.8 Allergy status to other drugs, medicaments and biological substances

== ENCOUNTER → 2021-11-15 | Outpatient (REF) | payer MEDICARE ==
[~2021-11-15] MED LIST changes: +LEVO750T13 PO
[2021-11-15 14:51] LABS: BASO % 0.2 % (0.0-1.0); EOS # 0.1 10^3/uL (0.0-0.5); EOS % 0.8 % (0.0-3.0); HEMATOCRIT 34.2 % (36.0-47.0); HEMOGLOBIN 10.8 g/dl (12.0-15.5); LYMPH # 0.5 10^3/uL (1.5-5.0); LYMPH % 8.2 % (24.0-44.0); MEAN CORPUSCULAR HEMOGLOBIN 30.2 pg (27.0-33.0); MEAN CORPUSCULAR HGB CONC 31.6 g/dl (32.0-36.5); MEAN CORPUSCULAR VOLUME 95.5 fl (80.0-96.0); MONO # 0.3 10^3/uL (0.0-0.8); MONO % 4.7 % (2.0-8.0); NEUTROPHILS # 5.5 10^3/uL (1.5-8.5); NEUTROPHILS % 84.6 % (36.0-66.0); PLATELET COUNT, AUTOMATED 181 10^3/uL (150-450); RED BLOOD COUNT 3.58 10^6/uL (4.00-5.40); WHITE BLOOD COUNT 6.6 10^3/uL (4.0-10.0)
[2021-11-15 17:37] LABS: CREATININE FOR GFR 1.67 MG/DL (0.55-1.30); GLOMERULAR FILTRATION RATE 31.9 (>39); POTASSIUM SERUM 3.3 MEQ/L (3.5-5.1)
[2021-11-15 17:38] LABS: ALBUMIN 2.3 GM/DL (3.2-5.2); CALCIUM LEVEL 8.3 MG/DL (8.8-10.2); PHOSPHORUS LEVEL 3.7 MG/DL (2.5-4.9)
[2021-11-15 17:41] LABS: PREALBUMIN 14.9 MG/DL (20.0-40.0)
== END ==
LOC: M SHH 14:30
PROVIDERS: ATTEND Internal Medicine Gastroenterology
DX: E44.0 Moderate protein-calorie malnutrition (principal); K63.2 Fistula of intestine; Z93.2 Ileostomy status

== ENCOUNTER 2021-11-17 12:32 | Emergency (ER) | payer MEDICARE ==
[~2021-11-17] VITALS: Ht 154.9 cm; Wt 49.1 kg
[~2021-11-17 12:32] MED LIST changes: -CALC1CAP31
[2021-11-17 14:37] LABS: BASO % 0.2 % (0.0-1.0); EOS % 0.3 % (0.0-3.0); HEMATOCRIT 34.4 % (36.0-47.0); HEMOGLOBIN 11.5 g/dl (12.0-15.5); LYMPH # 0.4 10^3/uL (1.5-5.0); LYMPH % 6.6 % (24.0-44.0); MEAN CORPUSCULAR HEMOGLOBIN 31.4 pg (27.0-33.0); MEAN CORPUSCULAR HGB CONC 33.4 g/dl (32.0-36.5); MONO # 0.3 10^3/uL (0.0-0.8); NEUTROPHILS # 5.7 10^3/uL (1.5-8.5); NEUTROPHILS % 88.6 % (36.0-66.0); PLATELET COUNT, AUTOMATED 205 10^3/uL (150-450); RED BLOOD COUNT 3.66 10^6/uL (4.00-5.40); WHITE BLOOD COUNT 6.5 10^3/uL (4.0-10.0)
[2021-11-17] MEDS ORDERED: SODIUM CHLORIDE 0.9% INJ 10 ML SYR IV PRN (16:40)
[2021-11-17] MEDS ORDERED: LevoFLOXacin IV 750 MG in IV 1 EA IV ONE (16:40)
[2021-11-17 17:29] LABS: CALCIUM LEVEL 8.4 MG/DL (8.8-10.2); CREATININE FOR GFR 1.41 MG/DL (0.55-1.30); GLOMERULAR FILTRATION RATE 38.8 (>39); POTASSIUM SERUM 3.9 MEQ/L (3.5-5.1)
[2021-11-17] MEDS ORDERED: LEVO750T13 PO (17:35)
[2021-11-17 18:19] VITALS: BP 177/88
== END 2021-11-17 18:22 | disposition home or self-care (01) ==
LOC: M ED 12:32
DX: N39.0 Urinary tract infection, site not specified (principal); R78.81 Bacteremia; Z79.899 Other long term (current) drug therapy; Z88.2 Allergy status to sulfonamides; Z88.8 Allergy status to other drugs, medicaments and biological substances
CPT/HCPCS: 80048; 85025; 87040; 87077; 87186; 96365; 96366; 99283; J1642; J1956

== ENCOUNTER 2021-11-20 11:10 | Inpatient (IN) | payer MEDICARE ==
[~2021-11-20] VITALS: Ht 154.9 cm; Wt 52.9 kg
[~2021-11-20 11:10] MED LIST changes: +INDA1.253 PO; -INDA125TA PO; +LEVO1TAB40 PO
[2021-11-20 13:25] LABS: BASO % 0.2 % (0.0-1.0); EOS % 0.2 % (0.0-3.0); HEMATOCRIT 33.3 % (36.0-47.0); HEMOGLOBIN 10.7 g/dl (12.0-15.5); LYMPH # 0.5 10^3/uL (1.5-5.0); LYMPH % 8.3 % (24.0-44.0); MEAN CORPUSCULAR HEMOGLOBIN 30.8 pg (27.0-33.0); MEAN CORPUSCULAR HGB CONC 32.1 g/dl (32.0-36.5); MONO # 0.4 10^3/uL (0.0-0.8); MONO % 6.2 % (2.0-8.0); NEUTROPHILS # 4.8 10^3/uL (1.5-8.5); NEUTROPHILS % 84.7 % (36.0-66.0); PLATELET COUNT, AUTOMATED 200 10^3/uL (150-450); RED BLOOD COUNT 3.47 10^6/uL (4.00-5.40); WHITE BLOOD COUNT 5.7 10^3/uL (4.0-10.0)
[2021-11-20 13:36] LABS: INR 1.13; PROTHROMBIN TIME 14.9 SECONDS (12.7-14.5)
[2021-11-20 14:07] LABS: ALBUMIN 2.1 GM/DL (3.2-5.2); BILIRUBIN,DIRECT 0.9 MG/DL (0.0-0.2); BILIRUBIN,TOTAL 1.6 MG/DL (0.2-1.0); CALCIUM LEVEL 8.7 MG/DL (8.8-10.2); CREATININE FOR GFR 1.83 MG/DL (0.55-1.30); GLOMERULAR FILTRATION RATE 28.7 (>39); POTASSIUM SERUM 4.9 MEQ/L (3.5-5.1); TOTAL PROTEIN 6.7 GM/DL (6.4-8.2)
[2021-11-20] MEDS ORDERED: PIPERACILLIN/TAZOBACTAM SOD 4.5 GM in D5W MINI-BAG PLUS 50 ML IV ONE (14:25)
[2021-11-20] MEDS ORDERED: POTA1TAB14 PO (15:16)
[2021-11-20] MEDS ORDERED: LOMOTIL 2.5MG/0.025MG TABLET PO PRN (16:05)
[2021-11-20] MEDS ORDERED: HOME MED LIST COMPLETE! XX SCH (16:05)
[2021-11-20 17:26] LABS: C REACTIVE PROTEIN QUANTITATIV 4.48 MG/DL (0.00-0.30)
[2021-11-20 17:30] LABS: ERYTHROCYTE SEDIMENTATION RATE 70 mm/hr (0-30)
[2021-11-20 18:00] VITALS: BP 140/70
[2021-11-20] MEDS: amLODIPine 5 MG TAB PO SCH (18:52)
[2021-11-20] MEDS: cefTRIAXone SOD 2 GM in D5W MINI-BAG PLUS 50 ML IV SCH (18:52)
[2021-11-20 19:22] LABS: CREATININE,RANDOM URINE 37.7 MG/DL
[2021-11-20 20:00] VITALS: BP 141/66
[2021-11-20] MEDS: HYDROCORTISONE 10 MG TAB PO SCH (20:52)
[2021-11-20] MEDS: FERROUS GLUCONATE 324 MG TAB PO SCH (20:52)
[2021-11-21] MEDS: ACETAMINOPHEN TAB 650MG DOSE (2X325MG) PO PRN ×3 (00:48→22:02)
[2021-11-21 04:00] VITALS: BP 132/66
[2021-11-21] MEDS: HEPARIN SOD (PORCINE) 5000UNITS/ML 1ML VIAL/SYRINGE SQ SCH ×3 (05:14→21:02)
[2021-11-21 05:30] LABS: BASO % 0.5 % (0.0-1.0); EOS % 0.8 % (0.0-3.0); HEMATOCRIT 30.3 % (36.0-47.0); HEMOGLOBIN 9.8 g/dl (12.0-15.5); LYMPH # 0.5 10^3/uL (1.5-5.0); LYMPH % 14.2 % (24.0-44.0); MEAN CORPUSCULAR HGB CONC 32.3 g/dl (32.0-36.5); MEAN CORPUSCULAR VOLUME 95.9 fl (80.0-96.0); MONO # 0.4 10^3/uL (0.0-0.8); MONO % 9.2 % (2.0-8.0); NEUTROPHILS # 2.8 10^3/uL (1.5-8.5); PLATELET COUNT, AUTOMATED 193 10^3/uL (150-450); RED BLOOD COUNT 3.16 10^6/uL (4.00-5.40); WHITE BLOOD COUNT 3.8 10^3/uL (4.0-10.0)
[2021-11-21 05:48] LABS: ERYTHROCYTE SEDIMENTATION RATE 66 mm/hr (0-30)
[2021-11-21 05:55] LABS: ALBUMIN 1.8 GM/DL (3.2-5.2); BILIRUBIN,TOTAL 0.9 MG/DL (0.2-1.0); C REACTIVE PROTEIN QUANTITATIV 4.48 MG/DL (0.00-0.30); CALCIUM LEVEL 8.4 MG/DL (8.8-10.2); CREATININE FOR GFR 1.9 MG/DL (0.55-1.30); GLOMERULAR FILTRATION RATE 27.5 (>39); MAGNESIUM LEVEL 2.2 MG/DL (1.8-2.4); POTASSIUM SERUM 4.4 MEQ/L (3.5-5.1); TOTAL PROTEIN 5.9 GM/DL (6.4-8.2)
[2021-11-21 07:40] VITALS: BP 135/62
[2021-11-21] MEDS: HYDROCORTISONE 10 MG TAB PO SCH ×2 (08:42→21:02)
[2021-11-21] MEDS: CALCITRIOL 0.25 MCG CAP (S0169) PO SCH (08:42)
[2021-11-21] MEDS: CALCIUM/VITAMIN D 500 MG TAB PO SCH (08:42)
[2021-11-21] MEDS: amLODIPine 5 MG TAB PO SCH (08:42)
[2021-11-21] MEDS: FERROUS GLUCONATE 324 MG TAB PO SCH ×2 (08:42→21:02)
[2021-11-21] MEDS: PANTOPRAZOLE 40MG TAB (PROTONIX) PO SCH (08:42)
[2021-11-21] MEDS ORDERED: LACTATED RINGER'S 1000 ML IV SCH (09:00)
[2021-11-21] MEDS ORDERED: FUROSEMIDE 40MG/4ML VIAL (J1940) IV ONE (14:15)
[2021-11-21 15:19] VITALS: BP 131/65
[2021-11-21] MEDS: cefTRIAXone SOD 2 GM in D5W MINI-BAG PLUS 50 ML IV SCH (17:14)
[2021-11-21 18:15] VITALS: BP 118/62
[2021-11-21 23:09] VITALS: BP 147/71
[2021-11-22] MEDS: PERCOCET 5MG/325MG TAB PO PRN (01:48)
[2021-11-22] MEDS: HEPARIN SOD (PORCINE) 5000UNITS/ML 1ML VIAL/SYRINGE SQ SCH ×3 (05:54→21:20)
[2021-11-22 05:59] VITALS: BP 146/71
[2021-11-22 06:18] LABS: BASO % 0.8 % (0.0-1.0); EOS # 0.1 10^3/uL (0.0-0.5); EOS % 1.9 % (0.0-3.0); HEMATOCRIT 31.9 % (36.0-47.0); HEMOGLOBIN 10.2 g/dl (12.0-15.5); LYMPH # 0.7 10^3/uL (1.5-5.0); LYMPH % 27.4 % (24.0-44.0); MEAN CORPUSCULAR HEMOGLOBIN 30.5 pg (27.0-33.0); MEAN CORPUSCULAR VOLUME 95.5 fl (80.0-96.0); MONO # 0.3 10^3/uL (0.0-0.8); MONO % 9.9 % (2.0-8.0); NEUTROPHILS # 1.6 10^3/uL (1.5-8.5); NEUTROPHILS % 59.6 % (36.0-66.0); PLATELET COUNT, AUTOMATED 218 10^3/uL (150-450); RED BLOOD COUNT 3.34 10^6/uL (4.00-5.40); WHITE BLOOD COUNT 2.6 10^3/uL (4.0-10.0)
[2021-11-22 06:40] LABS: BILIRUBIN,TOTAL 0.6 MG/DL (0.2-1.0); C REACTIVE PROTEIN QUANTITATIV 3.26 MG/DL (0.00-0.30); CALCIUM LEVEL 8.6 MG/DL (8.8-10.2); GLOMERULAR FILTRATION RATE 25.9 (>39); MAGNESIUM LEVEL 2.3 MG/DL (1.8-2.4)
[2021-11-22 07:48] LABS: ERYTHROCYTE SEDIMENTATION RATE 63 mm/hr (0-30)
[2021-11-22] MEDS: amLODIPine 5 MG TAB PO SCH (08:28)
[2021-11-22] MEDS: CALCIUM/VITAMIN D 500 MG TAB PO SCH (08:28)
[2021-11-22] MEDS: FERROUS GLUCONATE 324 MG TAB PO SCH ×2 (08:28→21:20)
[2021-11-22] MEDS: HYDROCORTISONE 10 MG TAB PO SCH ×2 (08:28→21:20)
[2021-11-22] MEDS: CALCITRIOL 0.25 MCG CAP (S0169) PO SCH (08:28)
[2021-11-22] MEDS: PANTOPRAZOLE 40MG TAB (PROTONIX) PO SCH (08:28)
[2021-11-22 14:00] VITALS: BP_SYST 114; BP_SYST 127; BP_DIAS 59; BP_DIAS 69
[2021-11-22] MEDS: cefTRIAXone SOD 2 GM in D5W MINI-BAG PLUS 50 ML IV SCH (17:13)
[2021-11-22 21:45] VITALS: BP 143/71
[2021-11-23] MEDS: PERCOCET 5MG/325MG TAB PO PRN (01:45)
[2021-11-23 05:09] VITALS: BP 148/71
[2021-11-23] MEDS: HEPARIN SOD (PORCINE) 5000UNITS/ML 1ML VIAL/SYRINGE SQ SCH ×2 (05:26→14:00)
[2021-11-23 06:26] LABS: BASO % 0.8 % (0.0-1.0); EOS % 1.2 % (0.0-3.0); HEMATOCRIT 31.9 % (36.0-47.0); HEMOGLOBIN 10.3 g/dl (12.0-15.5); LYMPH # 0.7 10^3/uL (1.5-5.0); LYMPH % 28.9 % (24.0-44.0); MEAN CORPUSCULAR HEMOGLOBIN 30.9 pg (27.0-33.0); MEAN CORPUSCULAR HGB CONC 32.3 g/dl (32.0-36.5); MEAN CORPUSCULAR VOLUME 95.8 fl (80.0-96.0); MONO # 0.2 10^3/uL (0.0-0.8); MONO % 8.3 % (2.0-8.0); NEUTROPHILS # 1.5 10^3/uL (1.5-8.5); NEUTROPHILS % 60.4 % (36.0-66.0); PLATELET COUNT, AUTOMATED 239 10^3/uL (150-450); RED BLOOD COUNT 3.33 10^6/uL (4.00-5.40); WHITE BLOOD COUNT 2.5 10^3/uL (4.0-10.0)
[2021-11-23 07:12] LABS: ALBUMIN 2.2 GM/DL (3.2-5.2); BILIRUBIN,TOTAL 0.5 MG/DL (0.2-1.0); C REACTIVE PROTEIN QUANTITATIV 2.05 MG/DL (0.00-0.30); CALCIUM LEVEL 8.6 MG/DL (8.8-10.2); CREATININE FOR GFR 1.95 MG/DL (0.55-1.30); GLOMERULAR FILTRATION RATE 26.7 (>39); MAGNESIUM LEVEL 2.2 MG/DL (1.8-2.4); POTASSIUM SERUM 4.1 MEQ/L (3.5-5.1); TOTAL PROTEIN 6.3 GM/DL (6.4-8.2)
[2021-11-23 08:38] LABS: ERYTHROCYTE SEDIMENTATION RATE 66 mm/hr (0-30)
[2021-11-23 08:48] VITALS: BP 144/70
[2021-11-23] MEDS: HYDROCORTISONE 10 MG TAB PO SCH (08:48)
[2021-11-23] MEDS: PANTOPRAZOLE 40MG TAB (PROTONIX) PO SCH (08:48)
[2021-11-23] MEDS: CALCITRIOL 0.25 MCG CAP (S0169) PO SCH (08:48)
[2021-11-23] MEDS: FERROUS GLUCONATE 324 MG TAB PO SCH (08:48)
[2021-11-23] MEDS: amLODIPine 5 MG TAB PO SCH (08:48)
[2021-11-23] MEDS: CALCIUM/VITAMIN D 500 MG TAB PO SCH (08:48)
[2021-11-23] MEDS: CEFEPIME HCL 1 GM in D5W MINI-BAG PLUS 50 ML IV SCH ×2 (08:49→17:41)
[2021-11-23] MEDS ORDERED: CEFEPIME HCL 2 GM in D5W MINI-BAG PLUS 50 ML IV SCH (09:00)
[2021-11-23 14:00] VITALS: BP 140/72
[2021-11-23 16:23] VITALS: BP 175/79
[2021-11-23] MEDS ORDERED: LIDOCAINE 1% MDV 20ML VIAL As Ordered ONE (16:29)
[2021-11-23] MEDS ORDERED: ISOVUE-300 61% 50ML VIAL As Ordered ONE (16:59)
[2021-11-23] MEDS ORDERED: AMLO1TAB24 PO (17:25)
[2021-11-23] MEDS: ACETAMINOPHEN TAB 650MG DOSE (2X325MG) PO PRN (17:48)
[2021-11-23] MEDS ORDERED: SODIUM CHLORIDE 0.9% INJ 10 ML SYR IV SCH (18:00)
[2021-11-23] MEDS ORDERED: SODIUM CHLORIDE 0.9% INJ 10 ML SYR IV PRN (18:00)
== END 2021-11-23 19:15 | disposition home or self-care (01) | DRG 315 ==
LOC: M ED 11:10 → M ED INP 16:04 → ENRESERV 16:38 → M PCU 18:02 → M MSPAV 11-21 18:07
PROVIDERS: ADMIT Internal Medicine; ATTEND Internal Medicine
PROC: 02PYX3Z Removal of Infusion Device from Great Vessel, External Approach (ICD-10-PCS; principal; 2021-11-20)
PROC: 02HV33Z Insertion of Infusion Device into Superior Vena Cava, Percutaneous Approach (ICD-10-PCS; 2021-11-23)
DX: T82.7XXA Infection and inflammatory reaction due to other cardiac and vascular devices, implants and grafts, initial encounter (principal); R78.81 Bacteremia; N39.0 Urinary tract infection, site not specified; N17.9 Acute kidney failure, unspecified; K50.90 Crohn's disease, unspecified, without complications; E27.40 Unspecified adrenocortical insufficiency; E46 Unspecified protein-calorie malnutrition; E87.0 Hyperosmolality and hypernatremia; I13.0 Hypertensive heart and chronic kidney disease with heart failure and stage 1 through stage 4 chronic kidney disease, or unspecified chronic kidney disease; Z79.899 Other long term (current) drug therapy; Z88.2 Allergy status to sulfonamides; Z88.8 Allergy status to other drugs, medicaments and biological substances; K21.9 Gastro-esophageal reflux disease without esophagitis; E61.1 Iron deficiency; M85.80 Other specified disorders of bone density and structure, unspecified site; N18.30 Chronic kidney disease, stage 3 unspecified; M10.9 Gout, unspecified; K76.0 Fatty (change of) liver, not elsewhere classified; D51.9 Vitamin B12 deficiency anemia, unspecified; K44.9 Diaphragmatic hernia without obstruction or gangrene; M06.9 Rheumatoid arthritis, unspecified; I27.20 Pulmonary hypertension, unspecified; E87.70 Fluid overload, unspecified; B96.89 Other specified bacterial agents as the cause of diseases classified elsewhere; Y83.8 Other surgical procedures as the cause of abnormal reaction of the patient, or of later complication, without mention of misadventure at the time of the procedure

== ENCOUNTER → 2021-11-29 | Outpatient (REF) | payer MEDICARE ==
[~2021-11-29] MED LIST changes: +AMLO1TAB24 PO; +POTA1TAB14 PO
[2021-11-29 15:01] LABS: BASO % 0.6 % (0.0-1.0); EOS # 0.1 10^3/uL (0.0-0.5); EOS % 1.5 % (0.0-3.0); HEMATOCRIT 33.6 % (36.0-47.0); HEMOGLOBIN 10.6 g/dl (12.0-15.5); LYMPH # 0.9 10^3/uL (1.5-5.0); LYMPH % 16.4 % (24.0-44.0); MEAN CORPUSCULAR HEMOGLOBIN 30.5 pg (27.0-33.0); MEAN CORPUSCULAR HGB CONC 31.5 g/dl (32.0-36.5); MEAN CORPUSCULAR VOLUME 96.8 fl (80.0-96.0); MONO # 0.4 10^3/uL (0.0-0.8); MONO % 6.5 % (2.0-8.0); NEUTROPHILS % 74.6 % (36.0-66.0); PLATELET COUNT, AUTOMATED 184 10^3/uL (150-450); RED BLOOD COUNT 3.47 10^6/uL (4.00-5.40); WHITE BLOOD COUNT 5.4 10^3/uL (4.0-10.0)
[2021-11-29 22:52] LABS: ALBUMIN 2.5 GM/DL (3.2-5.2); CALCIUM LEVEL 9.3 MG/DL (8.8-10.2); CREATININE FOR GFR 1.8 MG/DL (0.55-1.30); GLOMERULAR FILTRATION RATE 29.3 (>39); MAGNESIUM LEVEL 2.4 MG/DL (1.8-2.4); PHOSPHORUS LEVEL 3.5 MG/DL (2.5-4.9); POTASSIUM SERUM 3.9 MEQ/L (3.5-5.1); PREALBUMIN 27.6 MG/DL (20.0-40.0)
== END ==
LOC: M SHH 14:17
PROVIDERS: ATTEND Internal Medicine Gastroenterology
DX: E44.0 Moderate protein-calorie malnutrition (principal); K63.2 Fistula of intestine; Z93.2 Ileostomy status

== ENCOUNTER 2021-12-06 08:30 | Outpatient (CLI) | payer MEDICARE ==
[~2021-12-06] VITALS: Ht 154.9 cm; Wt 52.9 kg
[~2021-12-06 08:30] MED LIST changes: +SODIUM CHLORIDE 0.9% INJ 10 ML SYR IV PRN
[2021-12-06] MEDS ORDERED: VEDOLIZUMAB 300 MG in NS 250 ML IV ONE (09:00)
[2021-12-06 09:29] VITALS: BP 133/68
[2021-12-06 10:25] VITALS: BP 174/81
[2021-12-06] MEDS ORDERED: SODIUM CHLORIDE 0.9% INJ 10 ML SYR IV SCH (18:00)
== END 2021-12-06 10:25 | disposition home or self-care (01) ==
LOC: M INFU 08:30
PROVIDERS: ATTEND Internal Medicine Gastroenterology
DX: K50.90 Crohn's disease, unspecified, without complications (principal); Z88.2 Allergy status to sulfonamides; Z88.9 Allergy status to unspecified drugs, medicaments and biological substances; Z88.8 Allergy status to other drugs, medicaments and biological substances
CPT/HCPCS: 96365; J1642

== ENCOUNTER → 2021-12-07 | Outpatient (REF) | payer MEDICARE ==
[~2021-12-07] MED LIST changes: -SODIUM CHLORIDE 0.9% INJ 10 ML SYR IV PRN
[2021-12-07 13:11] LABS: BASO % 0.3 % (0.0-1.0); EOS # 0.1 10^3/uL (0.0-0.5); EOS % 3.4 % (0.0-3.0); HEMOGLOBIN 10.5 g/dl (12.0-15.5); LYMPH % 25.4 % (24.0-44.0); MEAN CORPUSCULAR HEMOGLOBIN 31.4 pg (27.0-33.0); MEAN CORPUSCULAR HGB CONC 31.8 g/dl (32.0-36.5); MEAN CORPUSCULAR VOLUME 98.8 fl (80.0-96.0); MONO # 0.3 10^3/uL (0.0-0.8); MONO % 6.9 % (2.0-8.0); NEUTROPHILS # 2.4 10^3/uL (1.5-8.5); NEUTROPHILS % 63.5 % (36.0-66.0); PLATELET COUNT, AUTOMATED 133 10^3/uL (150-450); RED BLOOD COUNT 3.34 10^6/uL (4.00-5.40); WHITE BLOOD COUNT 3.8 10^3/uL (4.0-10.0)
[2021-12-07 13:47] LABS: ALBUMIN 2.7 GM/DL (3.2-5.2); CALCIUM LEVEL 9.3 MG/DL (8.8-10.2); CREATININE FOR GFR 1.36 MG/DL (0.55-1.30); GLOMERULAR FILTRATION RATE 40.5 (>39); MAGNESIUM LEVEL 1.8 MG/DL (1.8-2.4); PHOSPHORUS LEVEL 3.9 MG/DL (2.5-4.9); POTASSIUM SERUM 3.8 MEQ/L (3.5-5.1)
[2021-12-07 14:13] LABS: PREALBUMIN 29.6 MG/DL (20.0-40.0)
== END ==
LOC: M SHH 12:50
PROVIDERS: ATTEND Internal Medicine Gastroenterology
DX: E44.0 Moderate protein-calorie malnutrition (principal); K63.2 Fistula of intestine; Z93.2 Ileostomy status

== ENCOUNTER → 2021-12-13 | Outpatient (REF) | payer MEDICARE ==
[2021-12-13 15:11] LABS: BASO % 0.5 % (0.0-1.0); EOS # 0.1 10^3/uL (0.0-0.5); HEMATOCRIT 32.5 % (36.0-47.0); HEMOGLOBIN 10.5 g/dl (12.0-15.5); LYMPH # 0.9 10^3/uL (1.5-5.0); LYMPH % 22.5 % (24.0-44.0); MEAN CORPUSCULAR HEMOGLOBIN 31.5 pg (27.0-33.0); MEAN CORPUSCULAR HGB CONC 32.3 g/dl (32.0-36.5); MEAN CORPUSCULAR VOLUME 97.6 fl (80.0-96.0); MONO # 0.4 10^3/uL (0.0-0.8); MONO % 8.9 % (2.0-8.0); NEUTROPHILS # 2.6 10^3/uL (1.5-8.5); NEUTROPHILS % 64.9 % (36.0-66.0); PLATELET COUNT, AUTOMATED 142 10^3/uL (150-450); RED BLOOD COUNT 3.33 10^6/uL (4.00-5.40)
[2021-12-13 15:23] LABS: ALBUMIN 2.8 GM/DL (3.2-5.2); CALCIUM LEVEL 8.9 MG/DL (8.8-10.2); CREATININE FOR GFR 1.57 MG/DL (0.55-1.30); GLOMERULAR FILTRATION RATE 34.3 (>39); MAGNESIUM LEVEL 2.2 MG/DL (1.8-2.4); PHOSPHORUS LEVEL 3.6 MG/DL (2.5-4.9); POTASSIUM SERUM 4.3 MEQ/L (3.5-5.1)
== END ==
LOC: M SHH 14:22
PROVIDERS: ATTEND Internal Medicine Gastroenterology
DX: E44.0 Moderate protein-calorie malnutrition (principal); K63.2 Fistula of intestine; Z93.2 Ileostomy status

== ENCOUNTER → 2021-12-20 | Outpatient (REF) | payer MEDICARE ==
[2021-12-20 15:40] LABS: BASO % 0.2 % (0.0-1.0); EOS # 0.1 10^3/uL (0.0-0.5); EOS % 2.8 % (0.0-3.0); HEMATOCRIT 33.7 % (36.0-47.0); HEMOGLOBIN 10.8 g/dl (12.0-15.5); LYMPH % 20.7 % (24.0-44.0); MEAN CORPUSCULAR HEMOGLOBIN 31.4 pg (27.0-33.0); MONO # 0.4 10^3/uL (0.0-0.8); MONO % 8.7 % (2.0-8.0); NEUTROPHILS # 3.1 10^3/uL (1.5-8.5); NEUTROPHILS % 67.4 % (36.0-66.0); PLATELET COUNT, AUTOMATED 146 10^3/uL (150-450); RED BLOOD COUNT 3.44 10^6/uL (4.00-5.40); WHITE BLOOD COUNT 4.6 10^3/uL (4.0-10.0)
[2021-12-20 17:22] LABS: ALBUMIN 2.8 GM/DL (3.2-5.2); CALCIUM LEVEL 8.7 MG/DL (8.8-10.2); CREATININE FOR GFR 1.6 MG/DL (0.55-1.30); GLOMERULAR FILTRATION RATE 33.5 (>39); PHOSPHORUS LEVEL 3.9 MG/DL (2.5-4.9); POTASSIUM SERUM 3.6 MEQ/L (3.5-5.1); PREALBUMIN 27.3 MG/DL (20.0-40.0)
== END ==
LOC: M SHH 14:47
PROVIDERS: ATTEND Internal Medicine Gastroenterology
DX: E44.0 Moderate protein-calorie malnutrition (principal); K63.2 Fistula of intestine; Z93.2 Ileostomy status

== ENCOUNTER → 2021-12-28 | Outpatient (REF) | payer MEDICARE ==
[2021-12-28 13:30] LABS: BASO % 0.2 % (0.0-1.0); EOS # 0.1 10^3/uL (0.0-0.5); EOS % 2.4 % (0.0-3.0); HEMATOCRIT 34.8 % (36.0-47.0); HEMOGLOBIN 11.3 g/dl (12.0-15.5); LYMPH # 0.7 10^3/uL (1.5-5.0); LYMPH % 12.8 % (24.0-44.0); MEAN CORPUSCULAR HEMOGLOBIN 31.5 pg (27.0-33.0); MEAN CORPUSCULAR HGB CONC 32.5 g/dl (32.0-36.5); MEAN CORPUSCULAR VOLUME 96.9 fl (80.0-96.0); MONO # 0.4 10^3/uL (0.0-0.8); MONO % 7.3 % (2.0-8.0); NEUTROPHILS # 3.9 10^3/uL (1.5-8.5); NEUTROPHILS % 77.1 % (36.0-66.0); PLATELET COUNT, AUTOMATED 157 10^3/uL (150-450); RED BLOOD COUNT 3.59 10^6/uL (4.00-5.40); WHITE BLOOD COUNT 5.1 10^3/uL (4.0-10.0)
[2021-12-28 14:18] LABS: CALCIUM LEVEL 9.3 MG/DL (8.8-10.2); CREATININE FOR GFR 1.48 MG/DL (0.55-1.30); GLOMERULAR FILTRATION RATE 36.7 (>39); MAGNESIUM LEVEL 2.1 MG/DL (1.8-2.4); PHOSPHORUS LEVEL 3.4 MG/DL (2.5-4.9); POTASSIUM SERUM 3.9 MEQ/L (3.5-5.1); PREALBUMIN 30.9 MG/DL (20.0-40.0)
== END ==
LOC: M SHH 12:33
PROVIDERS: ATTEND Internal Medicine Gastroenterology
DX: E44.0 Moderate protein-calorie malnutrition (principal); K63.2 Fistula of intestine; Z93.2 Ileostomy status

== ENCOUNTER → 2022-01-03 | Outpatient (REF) | payer MEDICARE ==
[~2022-01-03] MED LIST changes: +PATIENT COMMENT
[2022-01-03 13:59] LABS: BASO % 0.2 % (0.0-1.0); EOS # 0.1 10^3/uL (0.0-0.5); EOS % 1.8 % (0.0-3.0); HEMATOCRIT 34.4 % (36.0-47.0); HEMOGLOBIN 11.3 g/dl (12.0-15.5); LYMPH # 0.6 10^3/uL (1.5-5.0); LYMPH % 11.2 % (24.0-44.0); MEAN CORPUSCULAR HEMOGLOBIN 31.8 pg (27.0-33.0); MEAN CORPUSCULAR HGB CONC 32.8 g/dl (32.0-36.5); MEAN CORPUSCULAR VOLUME 96.9 fl (80.0-96.0); MONO # 0.3 10^3/uL (0.0-0.8); MONO % 5.9 % (2.0-8.0); NEUTROPHILS # 3.9 10^3/uL (1.5-8.5); NEUTROPHILS % 80.7 % (36.0-66.0); PLATELET COUNT, AUTOMATED 153 10^3/uL (150-450); RED BLOOD COUNT 3.55 10^6/uL (4.00-5.40); WHITE BLOOD COUNT 4.9 10^3/uL (4.0-10.0)
[2022-01-03 14:52] LABS: ALBUMIN 2.9 GM/DL (3.2-5.2); CALCIUM LEVEL 9.3 MG/DL (8.8-10.2); CREATININE FOR GFR 1.56 MG/DL (0.55-1.30); GLOMERULAR FILTRATION RATE 34.5 (>39); MAGNESIUM LEVEL 1.9 MG/DL (1.8-2.4); PHOSPHORUS LEVEL 3.1 MG/DL (2.5-4.9); POTASSIUM SERUM 3.5 MEQ/L (3.5-5.1)
[2022-01-03 15:45] LABS: PREALBUMIN 27.9 MG/DL (20.0-40.0)
== END ==
LOC: M SHH 13:18
PROVIDERS: ATTEND Internal Medicine Gastroenterology
DX: E44.0 Moderate protein-calorie malnutrition (principal); K63.2 Fistula of intestine; Z93.2 Ileostomy status

== ENCOUNTER 2022-01-04 15:39 | Inpatient (IN) | payer MEDICARE ==
[~2022-01-04] VITALS: Ht 154.9 cm; Wt 57.7 kg
[2022-01-04] MEDS: PIPERACILLIN/TAZOBACTAM SOD 2.25 GM in D5W MINI-BAG PLUS 50 ML IV SCH ×4 (01:00→19:00)
[~2022-01-04 15:39] MED LIST changes: -PATIENT COMMENT
[2022-01-04] MEDS ORDERED: cefTRIAXone SOD 2 GM in D5W MINI-BAG PLUS 50 ML IV ONE (15:50)
[2022-01-04] MEDS ORDERED: NS 1,350 ML in IV 1 EA IV ONE (15:50)
[2022-01-04] MEDS ORDERED: VANCOMYCIN HCL 1,000 MG, VIAL MATE ADAPTER 1 EACH in NS 250 ML IV ONE (15:55)
[2022-01-04] MEDS ORDERED: NS IV ONE (15:55)
[2022-01-04] MEDS ORDERED: ACETAMINOPHEN 650 MG SUPP PR ONE (15:55)
[2022-01-04 16:17] LABS: BASO % 0.4 % (0.0-1.0); HEMATOCRIT 40.3 % (36.0-47.0); HEMOGLOBIN 13.2 g/dl (12.0-15.5); LYMPH # 0.3 10^3/uL (1.5-5.0); LYMPH % 12.8 % (24.0-44.0); MEAN CORPUSCULAR HEMOGLOBIN 31.6 pg (27.0-33.0); MEAN CORPUSCULAR HGB CONC 32.8 g/dl (32.0-36.5); MEAN CORPUSCULAR VOLUME 96.4 fl (80.0-96.0); MONO % 0.4 % (2.0-8.0); NEUTROPHILS # 1.9 10^3/uL (1.5-8.5); PLATELET COUNT, AUTOMATED 142 10^3/uL (150-450); RED BLOOD COUNT 4.18 10^6/uL (4.00-5.40); VENOUS O2 SATURATION 80.5 % (60.0-80.0); VENOUS PARTIAL PRESSURE CO2 41.3 mmHg (38.0-50.0); VENOUS PARTIAL PRESSURE O2 46.9 mmHg (30.0-50.0); VENOUS PH 7.303 UNITS (7.330-7.430); VENOUS STANDARD HCO3 19.2 MEQ/L; VENOUS TOTAL CO2 21.3 MEQ/L (24.0-28.0); WHITE BLOOD COUNT 2.3 10^3/uL (4.0-10.0)
[2022-01-04 17:01] LABS: ALBUMIN 2.7 GM/DL (3.2-5.2); BILIRUBIN,DIRECT 1.9 MG/DL (0.0-0.2); BILIRUBIN,TOTAL 2.9 MG/DL (0.2-1.0); CALCIUM LEVEL 8.9 MG/DL (8.8-10.2); CREATININE FOR GFR 2.46 MG/DL (0.55-1.30); GLOMERULAR FILTRATION RATE 20.4 (>39); POTASSIUM SERUM 3.4 MEQ/L (3.5-5.1); TOTAL PROTEIN 6.7 GM/DL (6.4-8.2)
[2022-01-04 17:04] LABS: MB/CK RELATIVE INDEX 1.96 (< OR =4)
[2022-01-04] MEDS ORDERED: ACETAMINOPHEN 1000MG 100ML IV BTL (OFIRMEV) (J0131 PER 10MG) IV ONE (17:15)
[2022-01-04] MEDS ORDERED: NS 500 ML IV ONE (19:25)
[2022-01-04] MEDS ORDERED: PATIENT COMMENT (19:38)
[2022-01-04] MEDS ORDERED: AMLO1TAB24 PO (19:38)
[2022-01-04] MEDS ORDERED: HOME MED LIST COMPLETE! XX SCH (19:40)
[2022-01-04] MEDS ORDERED: NOREPINEPHRINE 8MG IN 500ML D5W BAG As Ordered ONE (20:02)
[2022-01-04] MEDS ORDERED: NOREPINEPHRINE/DEXTROSE 8 MG in IV 1 EA IV SCH (20:05)
[2022-01-04 20:25] LABS: CK-MB VALUE MASS 10.5 NG/ML (<3.6); MB/CK RELATIVE INDEX 3.2 (< OR =4)
[2022-01-04] MEDS ORDERED: HEPARIN SOD (PORCINE) 5000UNITS/ML 1ML VIAL/SYRINGE SC SCH (22:55)
[2022-01-04] MEDS: KCL 10MEQ/100ML SWI (KRUN) 10 MEQ in IV 1 EA IV SCH (23:00)
[2022-01-04] MEDS ORDERED: LR 1,000 ML IV ONE (23:20)
[2022-01-04] MEDS ORDERED: HEPARIN DRIP 25,000 UNITS in IV 1 EA IV SCH (23:25)
[2022-01-04] MEDS ORDERED: HEPARIN SOD (PORCINE) 5000UNITS/ML 1ML VIAL/SYRINGE IV PRN (23:25)
[2022-01-04] MEDS ORDERED: VANCOMYCIN HCL 1,000 MG, VIAL MATE ADAPTER 1 EACH in NS 250 ML IV SCH (23:25)
[2022-01-04] MEDS: DEXTROSE IV SCH (23:30)
[2022-01-04] MEDS: LR 1,000 ML IV SCH (23:30)
[2022-01-04] MEDS: NOREPINEPHRINE IV SCH (23:30)
[2022-01-04] MEDS ORDERED: HYDROCORTISONE 100 MG/2 ML VIAL (J1720 PER 1) IV ONE (23:30)
[2022-01-04] MEDS ORDERED: VASOPRESSIN INJ 20 UNITS in NS 499 ML IV SCH (23:45)
[2022-01-04 23:47] LABS: HEMATOCRIT 41.3 % (36.0-47.0); HEMOGLOBIN 13.1 g/dl (12.0-15.5); MEAN CORPUSCULAR HEMOGLOBIN 31.7 pg (27.0-33.0); MEAN CORPUSCULAR HGB CONC 31.7 g/dl (32.0-36.5); PLATELET COUNT, AUTOMATED 102 10^3/uL (150-450); RED BLOOD COUNT 4.13 10^6/uL (4.00-5.40); WHITE BLOOD COUNT 17.1 10^3/uL (4.0-10.0)
[2022-01-05] VITALS (89 sets, daily range): BP systolic 74–143; BP diastolic 30–77
[2022-01-05] MEDS ORDERED: VANCOMYCIN INTERMITTENT/PULSE DOSING BY CLINICAL PHARMACIST PER DOSING PROTOCOL XX SCH
[2022-01-05] MEDS: KCL 10MEQ/100ML SWI (KRUN) 10 MEQ in IV 1 EA IV SCH ×4 (01:00→02:58)
[2022-01-05] MEDS ORDERED: MAGNESIUM SULFATE 1GM/100ML D5W BAG (10MG/ML) As Ordered ONE (01:15)
[2022-01-05] MEDS: MAG SULF 1GM/100ML (MAG RUN) 1 GM in IV 1 EA IV SCH ×2 (01:34→02:58)
[2022-01-05] MEDS: PIPERACILLIN/TAZOBACTAM SOD 2.25 GM in D5W MINI-BAG PLUS 50 ML IV SCH ×4 (01:49→19:31)
[2022-01-05] MEDS: NOREPINEPHRINE IV SCH ×5 (04:22→22:15)
[2022-01-05] MEDS: DEXTROSE IV SCH ×5 (04:22→22:15)
[2022-01-05] MEDS ORDERED: ACETAMINOPHEN TAB 650MG DOSE (2X325MG) PO PRN (05:10)
[2022-01-05] MEDS ORDERED: ACETAMINOPHEN 650 MG SUPP PR PRN (05:10)
[2022-01-05 06:13] LABS: HEMATOCRIT 39.5 % (36.0-47.0); HEMOGLOBIN 12.7 g/dl (12.0-15.5); MEAN CORPUSCULAR HEMOGLOBIN 32.1 pg (27.0-33.0); MEAN CORPUSCULAR HGB CONC 32.2 g/dl (32.0-36.5); MEAN CORPUSCULAR VOLUME 99.7 fl (80.0-96.0); RED BLOOD COUNT 3.96 10^6/uL (4.00-5.40); WHITE BLOOD COUNT 22.7 10^3/uL (4.0-10.0)
[2022-01-05] MEDS: LR 1,000 ML IV SCH (06:26)
[2022-01-05 06:54] LABS: ALBUMIN 1.9 GM/DL (3.2-5.2); BILIRUBIN,TOTAL 4.5 MG/DL (0.2-1.0); CALCIUM LEVEL 7.7 MG/DL (8.8-10.2); CREATININE FOR GFR 2.96 MG/DL (0.55-1.30); GLOMERULAR FILTRATION RATE 16.5 (>39); MAGNESIUM LEVEL 2.1 MG/DL (1.8-2.4); POTASSIUM SERUM 4.5 MEQ/L (3.5-5.1); TOTAL PROTEIN 5.2 GM/DL (6.4-8.2); VANCOMYCIN RANDOM 14.9 UG/ML
[2022-01-05 07:18] LABS: PLATELET COUNT, AUTOMATED 65 10^3/uL (150-450)
[2022-01-05] MEDS ORDERED: VANCOMYCIN HCL 1,000 MG in IV FLUID PLACE HOLDER 1 EA IV SCH (07:50)
[2022-01-05] MEDS ORDERED: MORPHINE 2 MG/ML 1ML VIAL IV ONE ×2 (08:00→11:40)
[2022-01-05] MEDS ORDERED: NS 1,000 ML IV ONE (08:00)
[2022-01-05] MEDS: HYDROCORTISONE 100 MG/2 ML VIAL (J1720 PER 1) IV SCH ×3 (08:17→20:21)
[2022-01-05] MEDS: PANTOPRAZOLE 40MG VIAL IV SCH (08:18)
[2022-01-05] MEDS: VASOPRESSIN INJ 20 UNITS in NS 499 ML IV SCH ×2 (09:36→16:06)
[2022-01-05] MEDS ORDERED: VANCOMYCIN HCL 500 MG in D5W MINI-BAG PLUS 100 ML IV ONE (10:00)
[2022-01-05] MEDS: PHENYLEPHRINE HCL INJ 50 MG in D5W 495 ML IV SCH ×2 (10:54→22:18)
[2022-01-05] MEDS ORDERED: NS 250 ML IV ONE (11:30)
[2022-01-05] MEDS ORDERED: MORPHINE 2 MG/ML 1ML VIAL IV STA (11:36)
[2022-01-05 11:44] LABS: INR 2.76; PROTHROMBIN TIME 29.5 SECONDS (12.7-14.5)
[2022-01-05 11:45] LABS: FIBRINOGEN 244 MG/DL (268-480)
[2022-01-05 12:45] LABS: D-DIMER QUANT > 4000 ng/ml (<500); PARTIAL THROMBOPLASTIN TIME 190.1 SECONDS (25.9-37.0)
[2022-01-05] MEDS ORDERED: NS 1,000 ML IV SCH (13:30)
[2022-01-05 14:41] LABS: VENOUS BASE EXCESS -17.7 (-2.0-2.0); VENOUS HCO3 12.2 MEQ/L (23.0-27.0); VENOUS O2 SATURATION 76.2 % (60.0-80.0); VENOUS PARTIAL PRESSURE O2 50.1 mmHg (30.0-50.0); VENOUS PH 7.062 UNITS (7.330-7.430); VENOUS STANDARD HCO3 11.2 MEQ/L; VENOUS TOTAL CO2 13.6 MEQ/L (24.0-28.0)
[2022-01-05] MEDS ORDERED: ONDANSETRON 4MG 2ML VIAL IV PRN (16:00)
[2022-01-05] MEDS ORDERED: LIDOCAINE 1% MDV 20ML VIAL As Ordered ONE (16:02)
[2022-01-05] MEDS ORDERED: SODIUM BICARBONATE 8.4% INJ 50 ML SYRINGE IV STA ×2 (16:33→17:15)
[2022-01-05] MEDS: SODIUM BICARBONATE 100 MEQ in D5W 1,000 ML IV SCH (17:46)
[2022-01-05 18:44] LABS: HEMATOCRIT 35.4 % (36.0-47.0); HEMOGLOBIN 12.2 g/dl (12.0-15.5); MEAN CORPUSCULAR HEMOGLOBIN 32.8 pg (27.0-33.0); MEAN CORPUSCULAR HGB CONC 34.5 g/dl (32.0-36.5); MEAN CORPUSCULAR VOLUME 95.2 fl (80.0-96.0); RED BLOOD COUNT 3.72 10^6/uL (4.00-5.40)
[2022-01-05 18:46] LABS: PLATELET COUNT, AUTOMATED 56 10^3/uL (150-450); WHITE BLOOD COUNT 41.9 10^3/uL (4.0-10.0)
[2022-01-05] MEDS ORDERED: SODIUM CHLORIDE 0.9% INJ 10 ML SYR IV PRN (19:00)
[2022-01-05 19:26] LABS: ALBUMIN 1.8 GM/DL (3.2-5.2); BILIRUBIN,TOTAL 4.8 MG/DL (0.2-1.0); CALCIUM LEVEL 6.5 MG/DL (8.8-10.2); CREATININE FOR GFR 3.15 MG/DL (0.55-1.30); GLOMERULAR FILTRATION RATE 15.3 (>39); POTASSIUM SERUM 4.1 MEQ/L (3.5-5.1); TOTAL PROTEIN 5.2 GM/DL (6.4-8.2)
[2022-01-06] VITALS (90 sets, daily range): BP systolic 72–148; BP diastolic 47–96
[2022-01-06] MEDS: VASOPRESSIN INJ 20 UNITS in NS 499 ML IV SCH ×2 (01:08→09:00)
[2022-01-06] MEDS: PIPERACILLIN/TAZOBACTAM SOD 2.25 GM in D5W MINI-BAG PLUS 50 ML IV SCH ×2 (01:09→06:05)
[2022-01-06] MEDS: HYDROCORTISONE 100 MG/2 ML VIAL (J1720 PER 1) IV SCH ×4 (01:53→19:38)
[2022-01-06 02:20] LABS: HEMATOCRIT 33.5 % (36.0-47.0); HEMOGLOBIN 11.4 g/dl (12.0-15.5); MEAN CORPUSCULAR HEMOGLOBIN 32.4 pg (27.0-33.0); MEAN CORPUSCULAR VOLUME 95.2 fl (80.0-96.0); RED BLOOD COUNT 3.52 10^6/uL (4.00-5.40)
[2022-01-06 02:25] LABS: PLATELET COUNT, AUTOMATED 41 10^3/uL (150-450); WHITE BLOOD COUNT 40.6 10^3/uL (4.0-10.0)
[2022-01-06 02:29] LABS: INR 2.45
[2022-01-06] MEDS: CALCIUM GLUCONATE 1,000 MG in D5W MINI-BAG PLUS 100 ML IV SCH ×2 (02:38→03:39)
[2022-01-06 02:51] LABS: PARTIAL THROMBOPLASTIN TIME 177.2 SECONDS (25.9-37.0)
[2022-01-06 03:00] LABS: CREATININE FOR GFR 2.08 MG/DL (0.55-1.30); GLOMERULAR FILTRATION RATE 24.8 (>39); MAGNESIUM LEVEL 1.6 MG/DL (1.8-2.4); PHOSPHORUS LEVEL 3.9 MG/DL (2.5-4.9); POTASSIUM SERUM 4.1 MEQ/L (3.5-5.1)
[2022-01-06] MEDS: MAG SULF 1GM/100ML (MAG RUN) 1 GM in IV 1 EA IV SCH ×2 (03:44→04:30)
[2022-01-06] MEDS ORDERED: HYDROCORTISONE 100 MG/2 ML VIAL (J1720 PER 1) IV SCH (05:00)
[2022-01-06] MEDS: SODIUM BICARBONATE 100 MEQ in D5W 1,000 ML IV SCH (05:47)
[2022-01-06 08:07] LABS: VENOUS BASE EXCESS -6.1 (-2.0-2.0); VENOUS HCO3 20.8 MEQ/L (23.0-27.0); VENOUS O2 SATURATION 94.5 % (60.0-80.0); VENOUS PARTIAL PRESSURE CO2 46.6 mmHg (38.0-50.0); VENOUS PH 7.268 UNITS (7.330-7.430); VENOUS STANDARD HCO3 19.5 MEQ/L; VENOUS TOTAL CO2 22.3 MEQ/L (24.0-28.0)
[2022-01-06 08:10] LABS: HEMATOCRIT 32.3 % (36.0-47.0); HEMOGLOBIN 11.3 g/dl (12.0-15.5); MEAN CORPUSCULAR HEMOGLOBIN 33.1 pg (27.0-33.0); MEAN CORPUSCULAR VOLUME 94.7 fl (80.0-96.0); RED BLOOD COUNT 3.41 10^6/uL (4.00-5.40)
[2022-01-06 08:13] LABS: PLATELET COUNT, AUTOMATED 30 10^3/uL (150-450)
[2022-01-06 08:15] LABS: WHITE BLOOD COUNT 31.4 10^3/uL (4.0-10.0)
[2022-01-06] MEDS: PANTOPRAZOLE 40MG VIAL IV SCH (08:31)
[2022-01-06 08:51] LABS: CALCIUM LEVEL 7.9 MG/DL (8.8-10.2); CREATININE FOR GFR 1.49 MG/DL (0.55-1.30); GLOMERULAR FILTRATION RATE 36.4 (>39); MAGNESIUM LEVEL 2.3 MG/DL (1.8-2.4); POTASSIUM SERUM 3.8 MEQ/L (3.5-5.1); VANCOMYCIN RANDOM 9.8 UG/ML
[2022-01-06] MEDS ORDERED: CYANOCOBALAMIN 1,000MCG/ML VIAL (J3420) IM SCH (09:00)
[2022-01-06] MEDS: FOLIC ACID 1MG TAB PO SCH (09:00)
[2022-01-06] MEDS: CYANOCOBALAMIN 500 MCG TAB PO SCH (09:00)
[2022-01-06] MEDS ORDERED: VANCOMYCIN HCL 750 MG, VIAL MATE ADAPTER 1 EACH in D5W 250 ML IV SCH (10:00)
[2022-01-06 10:07] LABS: ALBUMIN 1.8 GM/DL (3.2-5.2); BILIRUBIN,DIRECT 4.1 MG/DL (0.0-0.2); BILIRUBIN,TOTAL 5.2 MG/DL (0.2-1.0); TOTAL PROTEIN 4.9 GM/DL (6.4-8.2)
[2022-01-06] MEDS: MEROPENEM INJ 1 GM in IV 1 EA IV SCH ×2 (10:10→17:09)
[2022-01-06] MEDS ORDERED: KCL 20MEQ IN 100ML SWI (KRUN) 20 MEQ in IV 1 EA IV ONE ×2 (11:00)
[2022-01-06] MEDS ORDERED: SODIUM CHLORIDE 0.9% INJ 10 ML SYR IV PRN (12:10)
[2022-01-06] MEDS ORDERED: FOLIC ACID 1 MG in NS 50 ML IV SCH (13:00)
[2022-01-06 13:04] LABS: INR 1.66
[2022-01-06 13:06] LABS: PARTIAL THROMBOPLASTIN TIME 61.8 SECONDS (25.9-37.0)
[2022-01-06] MEDS ORDERED: GLUCAGON INJ 1MG VIAL SC PRN (13:35)
[2022-01-06] MEDS ORDERED: GLUCOSE 4GM CHEW TABLET PO PRN (13:35)
[2022-01-06] MEDS ORDERED: DEXTROSE 50% 50 ML SYRINGE As Ordered ONE (13:59)
[2022-01-06 14:31] LABS: HEMATOCRIT 30.5 % (36.0-47.0); HEMOGLOBIN 10.3 g/dl (12.0-15.5); MEAN CORPUSCULAR HGB CONC 33.8 g/dl (32.0-36.5); MEAN CORPUSCULAR VOLUME 94.7 fl (80.0-96.0); RED BLOOD COUNT 3.22 10^6/uL (4.00-5.40); WHITE BLOOD COUNT 23.6 10^3/uL (4.0-10.0)
[2022-01-06 14:35] LABS: PLATELET COUNT, AUTOMATED 21 10^3/uL (150-450)
[2022-01-06] MEDS: NOREPINEPHRINE IV SCH ×3 (14:43→19:37)
[2022-01-06] MEDS: DEXTROSE IV SCH ×3 (14:43→19:37)
[2022-01-06] MEDS: DEXTROSE 50% 50 ML SYRINGE IV PRN ×2 (14:45→16:38)
[2022-01-06 15:09] LABS: CALCIUM LEVEL 7.8 MG/DL (8.8-10.2); CREATININE FOR GFR 1.32 MG/DL (0.55-1.30); GLOMERULAR FILTRATION RATE 41.9 (>39); MAGNESIUM LEVEL 1.9 MG/DL (1.8-2.4); PHOSPHORUS LEVEL 2.1 MG/DL (2.5-4.9); POTASSIUM SERUM 3.4 MEQ/L (3.5-5.1)
[2022-01-06] MEDS ORDERED: MAG SULF 1GM/100ML (MAG RUN) 1 GM in IV 1 EA IV ONE (16:00)
[2022-01-06] MEDS ORDERED: MORPHINE 2 MG/ML 1ML VIAL IV ONE (16:20)
[2022-01-06] MEDS: D10W 1,000 ML IV SCH (16:49)
[2022-01-06] MEDS ORDERED: CALCIUM GLUCONATE 1,000 MG in D5W MINI-BAG PLUS 100 ML IV ONE ×2 (17:00→18:00)
[2022-01-06] MEDS: KCL 20MEQ IN 100ML SWI (KRUN) 20 MEQ in IV 1 EA IV SCH ×4 (18:13→19:38)
[2022-01-06 20:15] LABS: HEMATOCRIT 30.9 % (36.0-47.0); HEMOGLOBIN 10.6 g/dl (12.0-15.5); MEAN CORPUSCULAR HEMOGLOBIN 32.5 pg (27.0-33.0); MEAN CORPUSCULAR HGB CONC 34.3 g/dl (32.0-36.5); MEAN CORPUSCULAR VOLUME 94.8 fl (80.0-96.0); RED BLOOD COUNT 3.26 10^6/uL (4.00-5.40); WHITE BLOOD COUNT 29.4 10^3/uL (4.0-10.0)
[2022-01-06 20:18] LABS: PLATELET COUNT, AUTOMATED 24 10^3/uL (150-450)
[2022-01-06 20:49] LABS: CALCIUM LEVEL 8.3 MG/DL (8.8-10.2); CREATININE FOR GFR 1.21 MG/DL (0.55-1.30); GLOMERULAR FILTRATION RATE 46.3 (>39); MAGNESIUM LEVEL 2.1 MG/DL (1.8-2.4); POTASSIUM SERUM 4.4 MEQ/L (3.5-5.1)
[2022-01-06] MEDS ORDERED: SODIUM PHOSPHATE INJ 30 MMOL in D5W 500 ML IV ONE (21:00)
[2022-01-06] MEDS ORDERED: LORazepam 2 MG/ML VIAL IV STA (22:41)
[2022-01-06] MEDS ORDERED: OLANZapine INTRAMUSCULAR 10MG VIAL IM ONE (23:55)
[2022-01-07] VITALS (96 sets, daily range): BP systolic 74–204; BP diastolic 38–96
[2022-01-07] MEDS: HYDROCORTISONE 100 MG/2 ML VIAL (J1720 PER 1) IV SCH ×4 (01:41→19:43)
[2022-01-07] MEDS: MEROPENEM INJ 1 GM in IV 1 EA IV SCH ×2 (01:41→10:47)
[2022-01-07 02:17] LABS: HEMATOCRIT 29.6 % (36.0-47.0); HEMOGLOBIN 10.3 g/dl (12.0-15.5); MEAN CORPUSCULAR HEMOGLOBIN 32.6 pg (27.0-33.0); MEAN CORPUSCULAR HGB CONC 34.8 g/dl (32.0-36.5); MEAN CORPUSCULAR VOLUME 93.7 fl (80.0-96.0); PLATELET COUNT, AUTOMATED 21 10^3/uL (150-450); RED BLOOD COUNT 3.16 10^6/uL (4.00-5.40); WHITE BLOOD COUNT 31.5 10^3/uL (4.0-10.0)
[2022-01-07 02:58] LABS: CALCIUM LEVEL 8.1 MG/DL (8.8-10.2); CREATININE FOR GFR 1.09 MG/DL (0.55-1.30); GLOMERULAR FILTRATION RATE 52.2 (>39); MAGNESIUM LEVEL 1.9 MG/DL (1.8-2.4); PHOSPHORUS LEVEL 2.8 MG/DL (2.5-4.9); POTASSIUM SERUM 3.6 MEQ/L (3.5-5.1)
[2022-01-07] MEDS ORDERED: CALCIUM GLUCONATE 1,000 MG in D5W MINI-BAG PLUS 100 ML IV ONE (03:15)
[2022-01-07] MEDS ORDERED: MAG SULF 1GM/100ML (MAG RUN) 1 GM in IV 1 EA IV ONE (03:15)
[2022-01-07] MEDS: KCL 20MEQ IN 100ML SWI (KRUN) 20 MEQ in IV 1 EA IV SCH ×4 (03:55→04:53)
[2022-01-07] MEDS: DEXTROSE 50% 50 ML SYRINGE IV PRN ×6 (08:04→14:55)
[2022-01-07 08:17] LABS: HEMATOCRIT 29.2 % (36.0-47.0); HEMOGLOBIN 9.7 g/dl (12.0-15.5); MEAN CORPUSCULAR HEMOGLOBIN 31.5 pg (27.0-33.0); MEAN CORPUSCULAR HGB CONC 33.2 g/dl (32.0-36.5); MEAN CORPUSCULAR VOLUME 94.8 fl (80.0-96.0); RED BLOOD COUNT 3.08 10^6/uL (4.00-5.40); WHITE BLOOD COUNT 26.1 10^3/uL (4.0-10.0)
[2022-01-07 08:24] LABS: PLATELET COUNT, AUTOMATED 18 10^3/uL (150-450)
[2022-01-07] MEDS: DEXTROSE IV SCH ×4 (08:40→19:30)
[2022-01-07] MEDS: NOREPINEPHRINE IV SCH ×4 (08:40→19:30)
[2022-01-07 08:42] LABS: ABG BASE EXCESS 0.7 (-2.0-2.0); ABG HCO3 25.1 MEQ/L (22.0-26.0); ABG O2 SATURATION 91.3 % (95.0-99.0); ABG PARTIAL PRESSURE CO2 39.1 mmHg (35.0-45.0); ABG PARTIAL PRESSURE O2 59.1 mmHg (75.0-100.0); ABG TOTAL CO2 26.3 MEQ/L (23.0-31.0); ABG pH (ARTERIAL) 7.425 UNITS (7.350-7.450)
[2022-01-07] MEDS: PANTOPRAZOLE 40MG VIAL IV SCH (08:44)
[2022-01-07 08:56] LABS: ALBUMIN 1.8 GM/DL (3.2-5.2); BILIRUBIN,TOTAL 7.2 MG/DL (0.2-1.0); CALCIUM LEVEL 8.3 MG/DL (8.8-10.2); CREATININE FOR GFR 1.03 MG/DL (0.55-1.30); GLOMERULAR FILTRATION RATE 55.8 (>39); MAGNESIUM LEVEL 2.2 MG/DL (1.8-2.4); TOTAL PROTEIN 4.9 GM/DL (6.4-8.2)
[2022-01-07] MEDS: CYANOCOBALAMIN 500 MCG TAB PO SCH (08:56)
[2022-01-07] MEDS: FOLIC ACID 1MG TAB PO SCH (08:56)
[2022-01-07 10:05] LABS: BILIRUBIN,DIRECT 4.9 MG/DL (0.0-0.2); THYROID STIMULATING HORMONE 0.66 uIU/ML (0.358-3.740)
[2022-01-07 10:58] LABS: ANISOCYTOSIS 1+; METAMYELOCYTES 5 % (0-0); MONOCYTES 2 % (0-5); NEUTROPHILS 79 % (28-66); PLATELET ESTIMATE MARKED DECREASE (NORMAL)
[2022-01-07 11:01] LABS: OVALOCYTES 1+
[2022-01-07] MEDS ORDERED: SODIUM PHOSPHATE INJ 30 MMOL in D5W 250 ML IV ONE (13:00)
[2022-01-07 14:31] LABS: HEMATOCRIT 28.6 % (36.0-47.0); HEMOGLOBIN 9.7 g/dl (12.0-15.5); MEAN CORPUSCULAR HEMOGLOBIN 32.2 pg (27.0-33.0); MEAN CORPUSCULAR HGB CONC 33.9 g/dl (32.0-36.5); RED BLOOD COUNT 3.01 10^6/uL (4.00-5.40); WHITE BLOOD COUNT 23.9 10^3/uL (4.0-10.0)
[2022-01-07 14:36] LABS: PLATELET COUNT, AUTOMATED 18 10^3/uL (150-450)
[2022-01-07] MEDS: D10W 1,000 ML IV SCH (14:49)
[2022-01-07 15:12] LABS: BLOOD UREA NITROGEN 14 MG/DL (7-18); CALCIUM LEVEL 8.5 MG/DL (8.8-10.2); CARBON DIOXIDE LEVEL 28 MEQ/L (21-32); CHLORIDE LEVEL 102 MEQ/L (98-107); CREATININE FOR GFR 0.88 MG/DL (0.55-1.30); GLOMERULAR FILTRATION RATE > 60.0 (>39); GLUCOSE, FASTING 106 MG/DL (70-100); MAGNESIUM LEVEL 2.1 MG/DL (1.8-2.4); PHOSPHORUS LEVEL 1.8 MG/DL (2.5-4.9); POTASSIUM SERUM 3.7 MEQ/L (3.5-5.1); SODIUM LEVEL 134 MEQ/L (136-145)
[2022-01-07] MEDS ORDERED: KCL 20MEQ IN 100ML SWI (KRUN) 20 MEQ in IV 1 EA IV ONE ×4 (15:25→22:55)
[2022-01-07] MEDS: CEFEPIME HCL 2 GM in D5W MINI-BAG PLUS 50 ML IV SCH (17:46)
[2022-01-07] MEDS ORDERED: [UNRECOGNIZED DRUG - OTHER] IV SCH ×9 (18:00)
[2022-01-07] MEDS ORDERED: SODIUM CHLORIDE IV SCH ×9 (18:00)
[2022-01-07] MEDS ORDERED: SODIUM ACETATE IV SCH ×9 (18:00)
[2022-01-07] MEDS ORDERED: FAT EMULSION IV 250 ML IV ONE (18:00)
[2022-01-07 19:55] LABS: HEMOGLOBIN 9.1 g/dl (12.0-15.5); MEAN CORPUSCULAR HGB CONC 33.7 g/dl (32.0-36.5); MEAN CORPUSCULAR VOLUME 95.1 fl (80.0-96.0); RED BLOOD COUNT 2.84 10^6/uL (4.00-5.40); WHITE BLOOD COUNT 19.8 10^3/uL (4.0-10.0)
[2022-01-07 20:11] LABS: PLATELET COUNT, AUTOMATED 14 10^3/uL (150-450)
[2022-01-07 20:26] LABS: BLOOD UREA NITROGEN 15 MG/DL (7-18); CARBON DIOXIDE LEVEL 28 MEQ/L (21-32); CHLORIDE LEVEL 102 MEQ/L (98-107); CREATININE FOR GFR 0.84 MG/DL (0.55-1.30); GLOMERULAR FILTRATION RATE > 60.0 (>39); GLUCOSE, FASTING 152 MG/DL (70-100); POTASSIUM SERUM 3.7 MEQ/L (3.5-5.1); SODIUM LEVEL 133 MEQ/L (136-145)
[2022-01-07 20:27] LABS: PHOSPHORUS LEVEL 3.2 MG/DL (2.5-4.9)
[2022-01-08] VITALS (99 sets, daily range): BP systolic 81–141; BP diastolic 49–99
[2022-01-08] MEDS: HYDROCORTISONE 100 MG/2 ML VIAL (J1720 PER 1) IV SCH ×4 (01:56→20:19)
[2022-01-08 02:00] LABS: HEMATOCRIT 26.5 % (36.0-47.0); HEMOGLOBIN 9.2 g/dl (12.0-15.5); MEAN CORPUSCULAR HGB CONC 34.7 g/dl (32.0-36.5); RED BLOOD COUNT 2.79 10^6/uL (4.00-5.40); WHITE BLOOD COUNT 15.8 10^3/uL (4.0-10.0)
[2022-01-08 02:06] LABS: PLATELET COUNT, AUTOMATED 11 10^3/uL (150-450)
[2022-01-08 02:40] LABS: BLOOD UREA NITROGEN 15 MG/DL (7-18); CALCIUM LEVEL 8.1 MG/DL (8.8-10.2); CARBON DIOXIDE LEVEL 27 MEQ/L (21-32); CHLORIDE LEVEL 103 MEQ/L (98-107); CREATININE FOR GFR 0.82 MG/DL (0.55-1.30); GLOMERULAR FILTRATION RATE > 60.0 (>39); GLUCOSE, FASTING 158 MG/DL (70-100); MAGNESIUM LEVEL 1.9 MG/DL (1.8-2.4); POTASSIUM SERUM 3.6 MEQ/L (3.5-5.1); SODIUM LEVEL 136 MEQ/L (136-145)
[2022-01-08] MEDS ORDERED: MAG SULF 1GM/100ML (MAG RUN) 1 GM in IV 1 EA IV ONE (02:45)
[2022-01-08 02:51] LABS: PHOSPHORUS LEVEL 1.8 MG/DL (2.5-4.9)
[2022-01-08] MEDS: KCL 20MEQ IN 100ML SWI (KRUN) 20 MEQ in IV 1 EA IV SCH ×4 (03:17→04:24)
[2022-01-08] MEDS: D10W 1,000 ML IV SCH (03:28)
[2022-01-08] MEDS ORDERED: SODIUM PHOSPHATE INJ 30 MMOL in D5W 250 ML IV ONE (04:30)
[2022-01-08] MEDS: CEFEPIME HCL 2 GM in D5W MINI-BAG PLUS 50 ML IV SCH ×2 (05:50→17:12)
[2022-01-08 06:50] LABS: ABG BASE EXCESS 1.4 (-2.0-2.0); ABG HCO3 25.8 MEQ/L (22.0-26.0); ABG PARTIAL PRESSURE CO2 40.1 mmHg (35.0-45.0); ABG PARTIAL PRESSURE O2 59.2 mmHg (75.0-100.0); ABG STANDARD HCO3 25.6 MEQ/L (22.0-26.0); ABG TOTAL CO2 27.1 MEQ/L (23.0-31.0); ABG pH (ARTERIAL) 7.427 UNITS (7.350-7.450)
[2022-01-08] MEDS: CYANOCOBALAMIN 500 MCG TAB PO SCH (08:27)
[2022-01-08] MEDS: FOLIC ACID 1MG TAB PO SCH (08:27)
[2022-01-08] MEDS: PANTOPRAZOLE 40MG VIAL IV SCH (08:29)
[2022-01-08 08:36] LABS: PLATELET COUNT, AUTOMATED 10 10^3/uL (150-450)
[2022-01-08 09:10] LABS: BLOOD UREA NITROGEN 16 MG/DL (7-18); CALCIUM LEVEL 8.3 MG/DL (8.8-10.2); CARBON DIOXIDE LEVEL 26 MEQ/L (21-32); CHLORIDE LEVEL 102 MEQ/L (98-107); CREATININE FOR GFR 0.96 MG/DL (0.55-1.30); GLOMERULAR FILTRATION RATE > 60.0 (>39); GLUCOSE, FASTING 119 MG/DL (70-100); MAGNESIUM LEVEL 2.2 MG/DL (1.8-2.4); PHOSPHORUS LEVEL 3.3 MG/DL (2.5-4.9); POTASSIUM SERUM 3.7 MEQ/L (3.5-5.1); SODIUM LEVEL 132 MEQ/L (136-145)
[2022-01-08 09:26] LABS: FIBRINOGEN 271 MG/DL (268-480); INR 1.01; PROTHROMBIN TIME 13.7 SECONDS (12.7-14.5)
[2022-01-08 09:27] LABS: PARTIAL THROMBOPLASTIN TIME 43.5 SECONDS (25.9-37.0)
[2022-01-08 09:53] LABS: D-DIMER QUANT > 4000 ng/ml (<500)
[2022-01-08] MEDS ORDERED: KCL 20MEQ IN 100ML SWI (KRUN) 20 MEQ in IV 1 EA IV ONE ×6 (10:00→21:25)
[2022-01-08 11:48] LABS: ABG pH (ARTERIAL) 7.456 UNITS (7.350-7.450)
[2022-01-08 11:49] LABS: ABG BASE EXCESS 2.5 (-2.0-2.0); ABG HCO3 26.6 MEQ/L (22.0-26.0); ABG O2 SATURATION 98.3 % (95.0-99.0); ABG PARTIAL PRESSURE CO2 38.6 mmHg (35.0-45.0); ABG PARTIAL PRESSURE O2 104.9 mmHg (75.0-100.0); ABG STANDARD HCO3 26.7 MEQ/L (22.0-26.0); ABG TOTAL CO2 27.8 MEQ/L (23.0-31.0)
[2022-01-08] MEDS ORDERED: SODIUM PHOSPHATE INJ 20 MMOL in D5W 250 ML IV ONE (12:00)
[2022-01-08 13:31] LABS: HEMATOCRIT 26.1 % (36.0-47.0); HEMOGLOBIN 8.9 g/dl (12.0-15.5); MEAN CORPUSCULAR HEMOGLOBIN 32.6 pg (27.0-33.0); MEAN CORPUSCULAR HGB CONC 34.1 g/dl (32.0-36.5); MEAN CORPUSCULAR VOLUME 95.6 fl (80.0-96.0); RED BLOOD COUNT 2.73 10^6/uL (4.00-5.40); WHITE BLOOD COUNT 13.4 10^3/uL (4.0-10.0)
[2022-01-08 13:51] LABS: HEMATOCRIT 25.2 % (36.0-47.0); HEMOGLOBIN 8.4 g/dl (12.0-15.5); MEAN CORPUSCULAR HEMOGLOBIN 32.1 pg (27.0-33.0); MEAN CORPUSCULAR HGB CONC 33.3 g/dl (32.0-36.5); MEAN CORPUSCULAR VOLUME 96.2 fl (80.0-96.0); RED BLOOD COUNT 2.62 10^6/uL (4.00-5.40); WHITE BLOOD COUNT 10.4 10^3/uL (4.0-10.0)
[2022-01-08 13:54] LABS: PLATELET COUNT, AUTOMATED 12 10^3/uL (150-450)
[2022-01-08 14:22] LABS: BLOOD UREA NITROGEN 15 MG/DL (7-18); CALCIUM LEVEL 8.1 MG/DL (8.8-10.2); CARBON DIOXIDE LEVEL 29 MEQ/L (21-32); CHLORIDE LEVEL 103 MEQ/L (98-107); CREATININE FOR GFR 0.77 MG/DL (0.55-1.30); GLOMERULAR FILTRATION RATE > 60.0 (>39); GLUCOSE, FASTING 124 MG/DL (70-100); MAGNESIUM LEVEL 2.1 MG/DL (1.8-2.4); POTASSIUM SERUM 3.7 MEQ/L (3.5-5.1); SODIUM LEVEL 134 MEQ/L (136-145)
[2022-01-08] MEDS ORDERED: SODIUM PHOSPHATE IV SCH ×6 (18:00)
[2022-01-08] MEDS ORDERED: FAT EMULSION IV 250 ML IV ONE (18:00)
[2022-01-08] MEDS ORDERED: [UNRECOGNIZED DRUG - OTHER] IV SCH ×6 (18:00)
[2022-01-08] MEDS ORDERED: SODIUM CHLORIDE IV SCH ×6 (18:00)
[2022-01-08 20:38] LABS: HEMATOCRIT 25.5 % (36.0-47.0); HEMOGLOBIN 8.4 g/dl (12.0-15.5); MEAN CORPUSCULAR HEMOGLOBIN 31.7 pg (27.0-33.0); MEAN CORPUSCULAR HGB CONC 32.9 g/dl (32.0-36.5); MEAN CORPUSCULAR VOLUME 96.2 fl (80.0-96.0); RED BLOOD COUNT 2.65 10^6/uL (4.00-5.40); WHITE BLOOD COUNT 10.4 10^3/uL (4.0-10.0)
[2022-01-08 21:00] LABS: PLATELET COUNT, AUTOMATED 13 10^3/uL (150-450)
[2022-01-08 21:15] LABS: BLOOD UREA NITROGEN 14 MG/DL (7-18); CARBON DIOXIDE LEVEL 29 MEQ/L (21-32); CHLORIDE LEVEL 104 MEQ/L (98-107); CREATININE FOR GFR 0.72 MG/DL (0.55-1.30); GLOMERULAR FILTRATION RATE > 60.0 (>39); GLUCOSE, FASTING 134 MG/DL (70-100); MAGNESIUM LEVEL 2.2 MG/DL (1.8-2.4); PHOSPHORUS LEVEL 2.6 MG/DL (2.5-4.9); POTASSIUM SERUM 3.9 MEQ/L (3.5-5.1); SODIUM LEVEL 135 MEQ/L (136-145)
[2022-01-09] VITALS (68 sets, daily range): BP systolic 116–177; BP diastolic 63–94
[2022-01-09] MEDS: HYDROCORTISONE 100 MG/2 ML VIAL (J1720 PER 1) IV SCH ×4 (01:54→20:55)
[2022-01-09 02:09] LABS: HEMATOCRIT 25.8 % (36.0-47.0); HEMOGLOBIN 8.5 g/dl (12.0-15.5); MEAN CORPUSCULAR HEMOGLOBIN 31.7 pg (27.0-33.0); MEAN CORPUSCULAR HGB CONC 32.9 g/dl (32.0-36.5); MEAN CORPUSCULAR VOLUME 96.3 fl (80.0-96.0); RED BLOOD COUNT 2.68 10^6/uL (4.00-5.40); WHITE BLOOD COUNT 10.7 10^3/uL (4.0-10.0)
[2022-01-09 02:23] LABS: PLATELET COUNT, AUTOMATED 12 10^3/uL (150-450)
[2022-01-09 02:34] LABS: BLOOD UREA NITROGEN 16 MG/DL (7-18); CALCIUM LEVEL 8.2 MG/DL (8.8-10.2); CARBON DIOXIDE LEVEL 29 MEQ/L (21-32); CHLORIDE LEVEL 105 MEQ/L (98-107); CREATININE FOR GFR 0.72 MG/DL (0.55-1.30); GLOMERULAR FILTRATION RATE > 60.0 (>39); GLUCOSE, FASTING 131 MG/DL (70-100); MAGNESIUM LEVEL 2.2 MG/DL (1.8-2.4); PHOSPHORUS LEVEL 2.4 MG/DL (2.5-4.9); POTASSIUM SERUM 4.1 MEQ/L (3.5-5.1); SODIUM LEVEL 138 MEQ/L (136-145)
[2022-01-09] MEDS ORDERED: SODIUM PHOSPHATE INJ 15 MMOL in D5W 250 ML IV ONE (03:30)
[2022-01-09 06:05] LABS: HEMOGLOBIN 8.3 g/dl (12.0-15.5); MEAN CORPUSCULAR HGB CONC 33.2 g/dl (32.0-36.5); MEAN CORPUSCULAR VOLUME 96.5 fl (80.0-96.0); RED BLOOD COUNT 2.59 10^6/uL (4.00-5.40); WHITE BLOOD COUNT 8.8 10^3/uL (4.0-10.0)
[2022-01-09] MEDS: CEFEPIME HCL 2 GM in D5W MINI-BAG PLUS 50 ML IV SCH (06:09)
[2022-01-09 06:13] LABS: PLATELET COUNT, AUTOMATED 9 10^3/uL (150-450)
[2022-01-09 06:40] LABS: LYMPHOCYTES 5 % (16-44); METAMYELOCYTES 1 % (0-0); MONOCYTES 6 % (0-5); NEUTROPHILS 82 % (28-66)
[2022-01-09 06:41] LABS: PLATELET ESTIMATE MARKED DECREASE (NORMAL)
[2022-01-09 06:42] LABS: ANISOCYTOSIS 1+
[2022-01-09 06:46] LABS: ALBUMIN 1.9 GM/DL (3.2-5.2); ALT/SGPT 82 U/L (12-78); BILIRUBIN,TOTAL 9.5 MG/DL (0.2-1.0); BLOOD UREA NITROGEN 16 MG/DL (7-18); CALCIUM LEVEL 7.9 MG/DL (8.8-10.2); CARBON DIOXIDE LEVEL 28 MEQ/L (21-32); CHLORIDE LEVEL 104 MEQ/L (98-107); CREATININE FOR GFR 0.75 MG/DL (0.55-1.30); GLOMERULAR FILTRATION RATE > 60.0 (>39); GLUCOSE, FASTING 154 MG/DL (70-100); POTASSIUM SERUM 4.1 MEQ/L (3.5-5.1); SODIUM LEVEL 136 MEQ/L (136-145); TOTAL PROTEIN 4.7 GM/DL (6.4-8.2)
[2022-01-09 07:54] LABS: HEMATOCRIT 26.2 % (36.0-47.0); HEMOGLOBIN 8.4 g/dl (12.0-15.5); MEAN CORPUSCULAR HEMOGLOBIN 31.5 pg (27.0-33.0); MEAN CORPUSCULAR HGB CONC 32.1 g/dl (32.0-36.5); MEAN CORPUSCULAR VOLUME 98.1 fl (80.0-96.0); RED BLOOD COUNT 2.67 10^6/uL (4.00-5.40); WHITE BLOOD COUNT 9.3 10^3/uL (4.0-10.0)
[2022-01-09 07:56] LABS: PLATELET COUNT, AUTOMATED 8 10^3/uL (150-450)
[2022-01-09] MEDS: FOLIC ACID 1MG TAB PO SCH (08:03)
[2022-01-09] MEDS: PANTOPRAZOLE 40MG VIAL IV SCH (08:08)
[2022-01-09] MEDS ORDERED: CALCIUM GLUCONATE 1,000 MG, VIAL MATE ADAPTER 1 EACH in NS 100 ML IV ONE (09:00)
[2022-01-09 09:02] LABS: BLOOD UREA NITROGEN 16 MG/DL (7-18); CALCIUM LEVEL 7.8 MG/DL (8.8-10.2); CARBON DIOXIDE LEVEL 28 MEQ/L (21-32); CHLORIDE LEVEL 105 MEQ/L (98-107); CREATININE FOR GFR 0.64 MG/DL (0.55-1.30); GLOMERULAR FILTRATION RATE > 60.0 (>39); GLUCOSE, FASTING 138 MG/DL (70-100); MAGNESIUM LEVEL 2.2 MG/DL (1.8-2.4); PHOSPHORUS LEVEL 3.3 MG/DL (2.5-4.9); SODIUM LEVEL 138 MEQ/L (136-145)
[2022-01-09] MEDS: METOPROLOL 5 MG/5 ML VIAL IV SCH ×2 (12:52→18:12)
[2022-01-09] MEDS ORDERED: FUROSEMIDE 40MG/4ML VIAL (J1940) IV ONE (14:00)
[2022-01-09] MEDS ORDERED: SODIUM CHLORIDE IV SCH ×7 (18:00)
[2022-01-09] MEDS ORDERED: [UNRECOGNIZED DRUG - OTHER] IV SCH ×7 (18:00)
[2022-01-09] MEDS ORDERED: SODIUM ACETATE IV SCH ×7 (18:00)
[2022-01-09] MEDS ORDERED: FAT EMULSION IV 250 ML IV ONE (18:00)
[2022-01-10] VITALS (31 sets, daily range): BP systolic 75–185; BP diastolic 37–87
[2022-01-10] MEDS: METOPROLOL 5 MG/5 ML VIAL IV SCH ×2 (00:11→06:17)
[2022-01-10] MEDS: HYDROCORTISONE 100 MG/2 ML VIAL (J1720 PER 1) IV SCH (01:20)
[2022-01-10] MEDS ORDERED: SODIUM CHLORIDE 0.9% 1000ML IV PRN (06:00)
[2022-01-10] MEDS ORDERED: NOREPINEPHRINE IV SCH (06:05)
[2022-01-10] MEDS ORDERED: DEXTROSE IV SCH (06:05)
[2022-01-10] MEDS ORDERED: NOREPINEPHRINE 8MG IN 500ML D5W BAG As Ordered ONE (06:06)
[2022-01-10 06:28] LABS: BASO # 0.1 10^3/uL (0.0-0.2); BASO % 0.4 % (0.0-1.0); EOS % 0.1 % (0.0-3.0); HEMATOCRIT 27.5 % (36.0-47.0); HEMOGLOBIN 8.7 g/dl (12.0-15.5); LYMPH # 0.6 10^3/uL (1.5-5.0); LYMPH % 4.6 % (24.0-44.0); MEAN CORPUSCULAR HEMOGLOBIN 32.1 pg (27.0-33.0); MEAN CORPUSCULAR HGB CONC 31.6 g/dl (32.0-36.5); MEAN CORPUSCULAR VOLUME 101.5 fl (80.0-96.0); MONO # 1.3 10^3/uL (0.0-0.8); MONO % 9.1 % (2.0-8.0); NEUTROPHILS # 11.5 10^3/uL (1.5-8.5); NEUTROPHILS % 83.2 % (36.0-66.0); RED BLOOD COUNT 2.71 10^6/uL (4.00-5.40); WHITE BLOOD COUNT 13.8 10^3/uL (4.0-10.0)
[2022-01-10 06:34] LABS: PLATELET COUNT, AUTOMATED 23 10^3/uL (150-450)
[2022-01-10 07:18] LABS: ALBUMIN 1.9 GM/DL (3.2-5.2); BILIRUBIN,TOTAL 7.4 MG/DL (0.2-1.0); CALCIUM LEVEL 7.4 MG/DL (8.8-10.2); CREATININE FOR GFR 1.49 MG/DL (0.55-1.30); GLOMERULAR FILTRATION RATE 36.4 (>39); POTASSIUM SERUM 4.6 MEQ/L (3.5-5.1)
[2022-01-10] MEDS ORDERED: CEFEPIME HCL 500 MG in D5W 50 ML IV SCH (08:00)
[2022-01-10] MEDS ORDERED: MORPHINE 2 MG/ML 1ML VIAL IV PRN (08:40)
[2022-01-10] MEDS ORDERED: LORazepam 2 MG/ML VIAL IV PRN (08:40)
[2022-01-10] MEDS ORDERED: SCOPOLAMINE 1MG TRANSDERMAL PATCH TOP PRN (08:40)
[2022-01-10] MEDS ORDERED: FLEET ENEMA PR PRN (08:40)
[2022-01-10] MEDS ORDERED: MORPHINE 2 MG/ML 1ML VIAL IV ONE (09:00)
== END 2022-01-10 09:00 | disposition expired | DRG 871 ==
LOC: EDBD 15:39 → M ED 15:39 → M ED INP 22:52 → M ICU 01-05 00:05
PROVIDERS: ADMIT Internal Medicine; ATTEND Internal Medicine Pulmonary Disease
PROC: 0JH63XZ Insertion of Tunneled Vascular Access Device into Chest Subcutaneous Tissue and Fascia, Percutaneous Approach (ICD-10-PCS; 2022-01-05)
PROC: 02HV33Z Insertion of Infusion Device into Superior Vena Cava, Percutaneous Approach (ICD-10-PCS; 2022-01-05)
PROC: 02HV33Z Insertion of Infusion Device into Superior Vena Cava, Percutaneous Approach (ICD-10-PCS; principal; 2022-01-06)
DX: A41.50 Gram-negative sepsis, unspecified (principal); I21.4 Non-ST elevation (NSTEMI) myocardial infarction; R65.21 Severe sepsis with septic shock; J96.01 Acute respiratory failure with hypoxia; K72.00 Acute and subacute hepatic failure without coma; D65 Disseminated intravascular coagulation [defibrination syndrome]; E43 Unspecified severe protein-calorie malnutrition; G93.41 Metabolic encephalopathy; K50.90 Crohn's disease, unspecified, without complications; E27.40 Unspecified adrenocortical insufficiency; N17.9 Acute kidney failure, unspecified; E87.2 Acidosis; E87.3 Alkalosis; E87.4 Mixed disorder of acid-base balance; J81.1 Chronic pulmonary edema; E87.1 Hypo-osmolality and hyponatremia; R57.0 Cardiogenic shock; E87.6 Hypokalemia; M19.90 Unspecified osteoarthritis, unspecified site; N18.30 Chronic kidney disease, stage 3 unspecified; M10.9 Gout, unspecified; M06.9 Rheumatoid arthritis, unspecified; Z66 Do not resuscitate; I12.9 Hypertensive chronic kidney disease with stage 1 through stage 4 chronic kidney disease, or unspecified chronic kidney disease; E87.70 Fluid overload, unspecified; I50.9 Heart failure, unspecified; Z93.2 Ileostomy status; K21.9 Gastro-esophageal reflux disease without esophagitis; E16.2 Hypoglycemia, unspecified; I49.3 Ventricular premature depolarization; R00.1 Bradycardia, unspecified; Z79.899 Other long term (current) drug therapy; Z88.2 Allergy status to sulfonamides; Z88.8 Allergy status to other drugs, medicaments and biological substances; R68.0 Hypothermia, not associated with low environmental temperature; Z51.5 Encounter for palliative care